=== PATIENT | male | born 1950 | race Two or more races ===

== ENCOUNTER 2016-07-14 10:33 | Inpatient (IN) | payer MEDICAID ==
--- NOTE | 2016-07-14 10:54 | EDPHY ---
H & P Stated Complaint: Diarrhea x 4 days, dialysis last week, SOB Time Seen by Provider: 07/14/16 10:42 HPI/ROS: CHIEF COMPLAINT: Weakness, requesting dialysis, diarrhea HISTORY OF PRESENT ILLNESS: The patient presents to the ED with complaints of generalized weakness. The patient has a history of end-stage renal disease and is only able to receive dialysis at our hospital secondary to his current insurance status. The patient reports he was last dialyzed 7 days ago. The patient denies shortness of breath. He does report several days of loose stool. He denies fever. The patient reports he has been compliant with his regular outpatient medications. The patient denies any complaints of abdominal pain. He has no complaints of chest pain. REVIEW OF SYSTEMS: A comprehensive 10 point review of systems is otherwise negative aside from elements mentioned in the history of present illness. 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 Exam Limitations: No limitations - Personal History Current Tetanus/Diphtheria Vaccine: Yes Tetanus Vaccine Date: 2010 - Medical/Surgical History Hx Asthma: No Hx Chronic Respiratory Disease: No Hx Diabetes: No Hx Cardiac Disease: Yes Hx Renal Disease: Yes Hx Cirrhosis: No Hx Alcoholism: No Hx HIV/AIDS: No Hx Splenectomy or Spleen Trauma: No Other PMH: gout, htn, hernia, anemia, cad, esophagitis, ulcer, renal failure, prn dialysis, heart stent - Social History Smoking Status: Former smoker - Physical Exam Exam: General Appearance: Thin male, no acute distress Eyes: Pupils equal and round no pallor or injection ENT, Mouth: Mucous membranes moist Respiratory: Port noted right anterior chest wall Cardiovascular: Regular rate and rhythm Gastrointestinal: Abdomen is soft and nontender, no masses, bowel sounds normal Neurological: A&O, normal motor function, normal sensory exam, normal cranial nerves Skin: Warm and dry, no rashes Musculoskeletal: Neck is supple nontender Extremities: symmetrical, full range of motion Constitutional: Initial Vital Signs Temperature (C) 36.4 C 07/14/16 10:35 Heart Rate 66 07/14/16 10:35 Respiratory Rate 18 07/14/16 10:35 Blood Pressure 163/60 H 07/14/16 10:35 O2 Sat (%) 99 07/14/16 10:35 O2 Delivery Mode Room Air Allergies/Adverse Reactions: No Known Allergies Allergy (Verified 07/02/16 12:05) Home Medications: Medication Instructions Recorded Ergocalciferol [Vitamin D2 (*)] 50,000 unit PO TU 11/10/15 Nitroglycerin [Nitrostat 0.4 mg 0.4 mg SL PRN PRN #30 btl 11/16/15 (*)] Calcitriol [Calcitriol (*)] 0.25 mcg PO DAILY #30 cap 12/20/15 Multivitamins [Multivitamin (*)] 1 each PO DAILY 01/30/16 Pantoprazole Sodium [Protonix 40mg 40 mg PO BID 03/28/16 (*)] amLODIPine BESYLATE [Norvasc 10 mg 10 mg PO DAILY 03/28/16 (*)] Calcium Carbonate [Tums 500MG (*)] 1,000 mg PO TIDMEAL #0 tab.chew 03/30/16 Metoprolol Tartrate [Lopressor 100 100 mg PO BID 06/05/16 mg (*)] hydrALAZINE [Apresoline 50 mg (*)] 50 mg PO BID 06/19/16 Atorvastatin Calcium [Lipitor 40 80 mg PO DAILY 07/02/16 mg (*)] hydrALAZINE [Apresoline 50 mg (*)] 25 mg PO DAILY@12 07/02/16 Medical Decision Making - Diagnostics EKG Interpretation: EKG: Complete interpretation has been separately recorded in the [email or web address] archive. Summary impression: Sinus rhythm, rate 56, QRS widening is noted, nonspecific ST T wave changes present ED Course/Re-evaluation: The patient presents to the ED with generalized weakness after having 7 days without dialysis. The patient is noted to be stable from a respiratory standpoint upon arrival. His initial potassium was 7.4. The patient was treated with IV calcium, bicarb, dextrose and insulin. The patient also received 30 g of Kayexalate. Consultation was made with nephrology and they are making arrangements to have the patient dialyzed soon as possible. The patient was placed on a environmental monitoring technician in the ED. He did not developed arrhythmia. The patient will be admitted to a medical-surgical floor with monitoring as he awaits dialysis. Consultation was made with the hospitalist service for admission. The patient will be admitted by Dr. Acosta. Differential Diagnosis: Differential diagnosis considered includes hyperkalemia, uremia, dehydration, congestive heart failure, acidosis Critical Care Time: Critical care time exclusive of procedures and exclusive of the PA's time was 35 minutes, performed by myself, Rush Calderón MD. Patient presents to the ED with critical hyperkalemia. The patient had this condition treated in the emergency department. Emergent consultation was made with the hospitalist service as well as Nephrology. - Data Points Laboratory Results: Laboratory Results 07/14/16 10:55 07/14/16 10:55 07/14/16 10:55 WBC 5.59 10^3/uL (3.80-9.50) RBC 2.67 L 10^6/uL (4.40-6.38) Hgb 8.1 L g/dL (13.7-17.5) Hct 24.4 L % (40.0-51.0) MCV 91.4 fL (81.5-99.8) MCH 30.3 pg (27.9-34.1) MCHC 33.2 g/dL (32.4-36.7) RDW 16.6 H % (11.5-15.2) Plt Count 136 L 10^3/uL (150-400) MPV 10.8 fL (8.7-11.7) Neut % (Auto) 55.7 % (39.3-74.2) Lymph % (Auto) 24.5 % (15.0-45.0) Andrews % (Auto) 7.9 % (4.5-13.0) Eos % (Auto) 10.0 H % (0.6-7.6) Baso % (Auto) 0.5 % (0.3-1.7) Nucleat RBC Rel Count 0.0 % (0.0-0.2) Absolute Neuts (auto) 3.11 10^3/uL (1.70-6.50) Absolute Lymphs (auto) 1.37 10^3/uL (1.00-3.00) Absolute Monos (auto) 0.44 10^3/uL (0.30-0.80) Absolute Eos (auto) 0.56 H 10^3/uL (0.03-0.40) Absolute Basos (auto) 0.03 10^3/uL (0.02-0.10) Absolute Nucleated RBC 0.00 10^3/uL (0-0.01) Immature Gran % 1.4 H % (0.0-1.1) Immature Gran # 0.08 10^3/uL (0.00-0.10) Sodium 143 mEq/L (134-144) Potassium 7.4 H* mEq/L (3.5-5.2) Chloride 104 mEq/L (97-110) Carbon Dioxide 8 L* mEq/l (22-31) Anion Gap 31 mEq/L (8-16) BUN > 200 H* mg/dL (7-23) Creatinine 19.0 H* mg/dL (0.7-1.3) Estimated GFR 3 Glucose 100 mg/dL (70-100) Calcium 7.8 L mg/dL (8.5-10.4) Medications Given: Discontinued Medications Dextrose (Dextrose 50% Syringe) 25 gm IVP EDNOW ONE Stop: 07/14/16 11:57 Last Admin: 07/14/16 12:05 Dose: 25 gm Insulin Human Regular (Humulin R) 4 unit IVP EDNOW ONE Stop: 07/14/16 11:59 Last Admin: 07/14/16 12:05 Dose: 4 units Sodium Bicarbonate (Sodium Bicarbonate) 50 meq IVP EDNOW ONE Stop: 07/14/16 11:57 Last Admin: 07/14/16 12:15 Dose: 50 meq Sodium Polystyrene Sulfonate (Kayexalate) 30 gm PO EDNOW ONE Stop: 07/14/16 12:17 Last Admin: 07/14/16 12:40 Dose: 30 gm Departure - Departure Disposition: [facility] Inpatient Acute Clinical Impression: Hyperkalemia, Acute renal failure, Diarrhea Condition: Fair
[2016-07-14 11:00] LABS: % IMMATURE GRANULYOCYTES 1.4 % (0.0-1.1); ABSOLUTE IMMATURE GRANULOCYTES 0.08 10^3/uL (0.00-0.10); ADD DIFF? NO; ADD MORPH? NO; ADD SCAN? NO; ATYPICAL LYMPHOCYTE FLAG 0 (0-99); FRAGMENT RBC FLAG 0 (0-99); HEMATOCRIT 24.4 % (40.0-51.0); HEMOGLOBIN 8.1 g/dL (13.7-17.5); LEFT SHIFT FLG 0 (0-99); LIPEMIA HEMOLYSIS FLAG 80 (0-99); MEAN CELL HEMOGLOBIN 30.3 pg (27.9-34.1); MEAN CELL HEMOGLOBIN CONCENTR. 33.2 g/dL (32.4-36.7); MEAN CELL VOLUME 91.4 fL (81.5-99.8); MEAN PLATELET VOLUME 10.8 fL (8.7-11.7); PLATELET CLUMPS FLAG 0 (0-99); PLATELET COUNT 136 10^3/uL (150-400); RED BLOOD CELL COUNT 2.67 10^6/uL (4.40-6.38); RED CELL DISTRIBUTION WIDTH 16.6 % (11.5-15.2)
--- NOTE | 2016-07-14 11:16 | DX ---
Portable Chest, Single View July 14, 2016 Indication: Dyspnea. Evaluate for CHF. Comparison: Portable chest dated June 19, 2016 Findings: The tunneled dialysis catheter remains in good position. The pulmonary vascular is within n ormal limit. No pulmonary edema, effusion or evidence of fluid overload. Heart size upper normal for AP technique. Previous bibasilar consolidation has nearly completely resolved except for minimal left basilar atelectasis. Impression: 1. No fluid overload or failure. 2. Clear lungs except for minimal residual left basilar atelectasis.
[2016-07-14 11:23] LABS: ANION GAP 31 mEq/L (8-16); CALCIUM 7.8 mg/dL (8.5-10.4); CARBON DIOXIDE 8 mEq/l (22-31); CHLORIDE 104 mEq/L (97-110); GLUCOSE 100 mg/dL (70-100); SODIUM 143 mEq/L (134-144)
[2016-07-14 11:52] LABS: GLOMERULAR FILTRATION RATE 3
[2016-07-14 11:55] LABS: POTASSIUM 7.4 mEq/L (3.5-5.2)
[2016-07-14] MEDS ORDERED: SODIUM BICARBONATE 50 MEQ/50 ML SYR IVP ONE (11:56)
[2016-07-14] MEDS ORDERED: D50W 25 GM/50 ML SYR IVP ONE (11:56)
[2016-07-14] MEDS ORDERED: CALCIUM GLUCONATE 50 ML IV ONE (11:56)
[2016-07-14] MEDS ORDERED: INSULIN REGULAR HUMAN 100 UNIT/ML IVP ONE (11:58)
[2016-07-14] MEDS ORDERED: NA BICARBONATE 50 MEQ/50 ML VIAL ONE (12:07)
--- NOTE | 2016-07-14 12:09 | CPEKG ---
Heart Rate: 56 RR Interval: 1071 P-R Interval: 220 QRSD Interval: 140 QT Interval: 496 QTC Interval: 479 P Brea: 60 QRS Brea: 81 T Wave Brea: 47 EKG Severity - ABNORMAL ECG - EKG Impression: SINUS RHYTHM EKG Impression: FIRST DEGREE AV BLOCK EKG Impression: NONSPECIFIC INTRAVENTRICULAR CONDUCTION DELAY Electronically Signed By: Rush Calderón 14-Jul-2016 15:52:15
[2016-07-14] MEDS ORDERED: CALCIUM GLUC 10% 1 GM/10 ML VIAL ONE (12:12)
[2016-07-14] MEDS ORDERED: NS 50 ML BAG IV ONE (12:13)
[2016-07-14] MEDS ORDERED: SODIUM POLY SULF 15 GM/60 ML BOTTLE PO ONE (12:16)
[2016-07-14] MEDS ORDERED: ACETAMINOPHEN 325 MG TAB PO PRN (12:35)
[2016-07-14] MEDS ORDERED: ONDANSETRON 4 MG/2 ML VIAL IVP PRN (12:35)
[2016-07-14] MEDS ORDERED: ONDANSETRON DISINTEGRATING 4 MG TAB PO PRN (12:35)
--- NOTE | 2016-07-14 12:49 | PDGENHP ---
History and Physical - Chief Complaint feels poorly, needs dialysis - History of Present Illness 66 yo male with h/o ESRD and CAD, who is well known to our service for frequent hospitalization for emergent dialysis. He has no access to outpatient dialysis services. He reports feeling poorly today, with weakness and nausea. He had some chest pressure yesterday and SOB with activity, both of which are resolved at this time. He presented to ED in need of dialysis services History Information - Allergies/Home Medication List Allergies/Adverse Reactions: No Known Allergies Allergy (Verified 07/02/16 12:05) Home Medications: Ergocalciferol [Vitamin D2 (*)] 50,000 unit PO TU 11/10/15 [Last Taken 07/10/16] Multivitamins [Multivitamin (*)] 1 each PO DAILY 01/30/16 [Last Taken 07/13/16] Pantoprazole Sodium [Protonix 40mg (*)] 40 mg PO BID 03/28/16 [Last Taken ] amLODIPine BESYLATE [Norvasc 10 mg (*)] 10 mg PO DAILY 03/28/16 [Last Taken 12/22] Metoprolol Tartrate [Lopressor 100 mg (*)] 100 mg PO DAILY 06/05/16 [Last Taken 07/13/16] hydrALAZINE [Apresoline 50 mg (*)] 50 mg PO BID 06/19/16 [Last Taken 07/13/16] Atorvastatin Calcium [Lipitor 40 mg (*)] 80 mg PO DAILY 07/02/16 [Last Taken 12/22] hydrALAZINE [Apresoline 50 mg (*)] 25 mg PO DAILY@12 07/02/16 [Last Taken ] I have personally reviewed and updated: family history, medical history, social history, surgical history - Past Medical History coronary artery disease (Known coronary disease but has not undergone interventional cardiac catheterization), ESRD (Does not have access to outpatient hemodialysis), GI bleed, GERD (Anemia of chronic disease, H/O UGIB x2 (first on Plavix +ASA, then on ASA alone), esophagitis), hypertension Additional medical history: Anemia of chronic kidney disease; upper GI bleed in the setting of anti-platelet medications, has occurred while on single and double agent therapy; 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; esophagitis - Surgical History Additional surgical history: R IJ tunneled catheter - Family History Additional family history: Mother with CVA and HTN - Social History Smoking Status: Former smoker Additional social history: Currently living alone while his son is in [place] , has been alone for approximately 2 months and is unclear when his son is going to return Review of Systems ROS: 10pt was reviewed & negative except for what was stated in HPI & below Physical Exam Temp Pulse Resp BP Pulse Ox 36.4 C 60 18 152/65 H 98 07/14/16 10:35 07/14/16 11:42 07/14/16 11:42 07/14/16 11:42 07/14/16 11:42 Constitutional: chronically ill appearing Eyes: PERRL Ears, Nose, Mouth, Throat: moist mucous membranes Cardiovascular: regular rate and rhythym Respiratory: no respiratory distress, clear to auscultation Gastrointestinal: normoactive bowel sounds, soft, non-tender abdomen Skin: warm Neurologic: AAOx3 Psychiatric: interacting appropriately Lab Data & Imaging Review 07/14/16 10:55 07/14/16 13:50 WBC 5.59 10^3/uL (3.80-9.50) 07/14/16 10:55 RBC 2.67 10^6/uL (4.40-6.38) L 07/14/16 10:55 Hgb 8.1 g/dL (13.7-17.5) L 07/14/16 10:55 Hct 24.4 % (40.0-51.0) L 07/14/16 10:55 MCV 91.4 fL (81.5-99.8) 07/14/16 10:55 MCH 30.3 pg (27.9-34.1) 07/14/16 10:55 MCHC 33.2 g/dL (32.4-36.7) 07/14/16 10:55 RDW 16.6 % (11.5-15.2) H 07/14/16 10:55 Plt Count 136 10^3/uL (150-400) L 07/14/16 10:55 MPV 10.8 fL (8.7-11.7) 07/14/16 10:55 Neut % (Auto) 55.7 % (39.3-74.2) 07/14/16 10:55 Lymph % (Auto) 24.5 % (15.0-45.0) 07/14/16 10:55 [place] % (Auto) 7.9 % (4.5-13.0) 07/14/16 10:55 Eos % (Auto) 10.0 % (0.6-7.6) H 07/14/16 10:55 Baso % (Auto) 0.5 % (0.3-1.7) 07/14/16 10:55 Nucleat RBC Rel Count 0.0 % (0.0-0.2) 07/14/16 10:55 Absolute Neuts (auto) 3.11 10^3/uL (1.70-6.50) 07/14/16 10:55 Absolute Lymphs (auto) 1.37 10^3/uL (1.00-3.00) 07/14/16 10:55 Absolute Monos (auto) 0.44 10^3/uL (0.30-0.80) 07/14/16 10:55 Absolute Eos (auto) 0.56 10^3/uL (0.03-0.40) H 07/14/16 10:55 Absolute Basos (auto) 0.03 10^3/uL (0.02-0.10) 07/14/16 10:55 Absolute Nucleated RBC 0.00 10^3/uL (0-0.01) 07/14/16 10:55 Immature Gran % 1.4 % (0.0-1.1) H 07/14/16 10:55 Immature Gran # 0.08 10^3/uL (0.00-0.10) 07/14/16 10:55 Sodium 143 mEq/L (134-144) 07/14/16 10:55 Potassium 7.4 mEq/L (3.5-5.2) H* 07/14/16 10:55 Chloride 104 mEq/L (97-110) 07/14/16 10:55 Carbon Dioxide 8 mEq/l (22-31) L* 07/14/16 10:55 Anion Gap 31 mEq/L (8-16) 07/14/16 10:55 BUN > 200 mg/dL (7-23) H* 07/14/16 10:55 Creatinine 19.0 mg/dL (0.7-1.3) H* 07/14/16 10:55 Estimated GFR 3 07/14/16 10:55 Glucose 100 mg/dL (70-100) 07/14/16 10:55 Calcium 7.8 mg/dL (8.5-10.4) L 07/14/16 10:55 Assessment & Plan Assessment: ESRD Life threatening hyperkalemia CAD - severe, CP free. Abnormal EKG Chronic anemia secondary to kidney disease H/O GI bleed - bled on dual anti-platelet therapy in 02/2016, then bled again on ASA alone in 03/2016 Plan: Pt received NaHCO3, Insulin/Dextrose, Calcium Gluconate, Kayexalate in ED. Will repeat stat BMP and EKG now. Check troponin given anterior ST changes on EKG, Cardiology consult if persists despite lowering K. Repeat BMP / Potassium level now. Emergent dialysis per renal. Hgb at baseline, defer transfusion at this time Regarding CAD and prior UGIB, pt has severe CAD, which has not been intervened upon. He has been on BID PPI with no further bleeding for ~4 months. He warrants another trial of anti-platelet therapy and after discussion with Cardiology, will resume Plavix alone (bled both times on ASA, which may be more likely to aggravate GI tract). Full code
[2016-07-14 13:09] LABS: MAGNESIUM 2.1 mg/dL (1.6-2.3)
[2016-07-14 13:22] LABS: TROPONIN I < 0.012 ng/mL (0-0.034)
[2016-07-14] MEDS ORDERED: NITROGLYCERIN 0.4 MG BTL SL PRN (13:25)
--- NOTE | 2016-07-14 13:29 | SOAPPROG ---
SOAP Progress Note Assessment/Plan: Assessment: 1)ESRD- no access to outpt unit given citizenship status -emergent HD today (and again tomorrrow) given hyperkalemia and severe azotemia -high risk for dialysis dysequilibrium- will use low blood flow, shorter run, mannitol to help minimize risk (BUN >200)- discussed with hospitalist signs/ symptoms to monitor for (N/v, TYSON, seizure) 2)Hyperkalemia -medical managment in ER, now for emergent dialysis- would recheck K 2 hours after HD tonight (call me if > 6 still) -renal diet 3)Anemia of CKD -will give Epo 10,000 units at Hb < 9 4)MBD of CKD -phos 9- start binder Ca Acetate 1334 mg po tid meals -renal diet -hold calcitriol until phos better I discussed with manager behavior and hospitalist Elba Burch MD [facility] [phone] 07/14/16 15:28 Subjective: Pt seen on dialysis at 15:12. He is using RIJ TDC with Qb 250, 2K/2.5Ca bath. Tolerating well so far. Gave mannitol at start of run given severe azotemia. Denies any n/v, TYSON currently. Objective: Vital Signs Temp Pulse Resp BP Pulse Ox 36.4 C 54 L 14 156/72 H 99 07/14/16 13:21 07/14/16 13:21 07/14/16 13:21 07/14/16 13:21 07/14/16 13:21 07/13/16 07/14/16 07/15/16 05:59 05:59 05:59 Intake Total 150 Balance 150 Physical Exam - Physical Exam General Appearance: no apparent distress Neck: supple, other (RIJ TDC c/d/i) Respiratory: lungs clear Cardiac/Chest: regular rate, rhythm, other (no rub) Abdomen: non-tender, soft Skin: warm/dry Extremities: other (trace LE edema bilat) Neuro/Psych: alert, oriented x 3 ICD10 Worksheet Patient Problems: Problems Problem Status Diagnosed Acute renal failure Acute Diarrhea Acute Hyperkalemia Acute Abdominal pain Acute Acute upper GI bleed Acute Anemia Acute Anemia associated with acute blood loss Acute End stage renal disease Acute Hypertension Acute Hypocalcemia Acute Metabolic acidosis Acute Renal failure Acute
[2016-07-14] MEDS ORDERED: CALCITRIOL 0.25 MCG CAP PO SCH (13:30)
[2016-07-14] MEDS ORDERED: MANNITOL 25% 12.5 GM/50 ML VIAL IVP ONE (13:31)
--- NOTE | 2016-07-14 13:46 | CPEKG ---
Heart Rate: 54 RR Interval: 1111 P-R Interval: 200 QRSD Interval: 122 QT Interval: 488 QTC Interval: 463 P Docena: 71 QRS Docena: 72 T Wave Docena: 64 EKG Severity - ABNORMAL ECG - EKG Impression: SINUS RHYTHM Electronically Signed By: Carter Wolfe 15-Jul-2016 10:48:44
[2016-07-14 14:24] LABS: ANION GAP 30 mEq/L (8-16); CARBON DIOXIDE 10 mEq/l (22-31); CHLORIDE 104 mEq/L (97-110); GLUCOSE 121 mg/dL (70-100); SODIUM 144 mEq/L (134-144)
[2016-07-14 14:41] LABS: CREATININE 19.1 mg/dL (0.7-1.3); GLOMERULAR FILTRATION RATE 2
[2016-07-14 14:44] LABS: POTASSIUM 8.1 mEq/L (3.5-5.2)
[2016-07-14] MEDS ORDERED: ALBUMIN 25% 50 ML IV SCH (15:00)
[2016-07-14] MEDS ORDERED: ALBUMIN 25% 50 ML IV PRN (15:56)
[2016-07-14] MEDS: ATORVASTATIN CALCIUM 40 MG TAB PO SCH (16:35)
[2016-07-14] MEDS: PANTOPRAZOLE SODIUM 40 MG TAB PO SCH ×2 (16:35→21:25)
[2016-07-14] MEDS: METOPROLOL TARTRATE 100 MG TAB PO SCH ×2 (16:35→21:25)
[2016-07-14] MEDS: CALCIUM ACETATE 667 MG CAP PO SCH (19:21)
[2016-07-14] MEDS: CALCIUM CARBONATE 500 MG CHEWABLE TAB PO SCH (19:21)
[2016-07-14 20:28] LABS: ANION GAP 22 mEq/L (8-16); CALCIUM 8.6 mg/dL (8.5-10.4); CARBON DIOXIDE 20 mEq/l (22-31); CHLORIDE 100 mEq/L (97-110); GLOMERULAR FILTRATION RATE 6; GLUCOSE 76 mg/dL (70-100); POTASSIUM 3.7 mEq/L (3.5-5.2); SODIUM 142 mEq/L (134-144)
[2016-07-14 20:42] LABS: CREATININE 8.6 mg/dL (0.7-1.3)
[2016-07-14] MEDS ORDERED: HEPARIN 50,000 UNIT/10 ML VIAL ONE (21:00)
[2016-07-15 05:30] LABS: ANION GAP 17 mEq/L (8-16); CALCIUM 8.2 mg/dL (8.5-10.4); CARBON DIOXIDE 22 mEq/l (22-31); CHLORIDE 101 mEq/L (97-110); GLOMERULAR FILTRATION RATE 5; GLUCOSE 82 mg/dL (70-100); POTASSIUM 4.4 mEq/L (3.5-5.2); SODIUM 140 mEq/L (134-144)
[2016-07-15 05:35] LABS: CREATININE 10.3 mg/dL (0.7-1.3)
[2016-07-15] MEDS: CALCIUM CARBONATE 500 MG CHEWABLE TAB PO SCH ×3 (08:03→18:53)
[2016-07-15] MEDS: ATORVASTATIN CALCIUM 40 MG TAB PO SCH (08:03)
[2016-07-15] MEDS: METOPROLOL TARTRATE 100 MG TAB PO SCH (08:04)
[2016-07-15] MEDS: CALCIUM ACETATE 667 MG CAP PO SCH ×3 (08:04→18:53)
[2016-07-15] MEDS: PANTOPRAZOLE SODIUM 40 MG TAB PO SCH ×2 (08:04→19:50)
[2016-07-15] MEDS ORDERED: CLOPIDOGREL BISULFATE 75 MG TAB PO SCH (09:00)
[2016-07-15] MEDS ORDERED: EPOETIN ALFA 10,000 UNIT/ML VIAL SC ONE (09:00)
--- NOTE | 2016-07-15 10:10 | SOAPPROG ---
JACQUELINE Progress Note Assessment/Plan: Assessment: 1)ESRD- no access to outpt unit given citizenship status -emergent HD today (and again tomorrrow) given hyperkalemia and severe azotemia -high risk for dialysis dysequilibrium- will use low blood flow, shorter run, mannitol to help minimize risk (BUN >200)- appears to have tolerated first run ok -Plan HD again today (he may choose to d/c afterwards which is ok, otherwise we can run again Saturday if still here) 2)Hyperkalemia -improved with HD -renal diet 3)Anemia of CKD -will give Epo 10,000 units at Hb < 9 4)MBD of CKD -phos 9- started binder Ca Acetate 1334 mg po tid meals -renal diet -hold calcitriol until phos better 5)HTN- improved control since admit, query whether taking meds at home I discussed with hospitalist Elba Burch MD [facility] [phone] 07/15/16 11:40 07/15/16 11:42 Subjective: Tolerated HD well yesterday- no n/v, TYSON, dizziness. Feels much better today. No sob. Discussed discharge- he tells me he probably will want to leave after HD today but will see how he is feeling. Objective: Vital Signs Temp Pulse Resp BP Pulse Ox 36.7 C 61 13 159/87 H 96 07/15/16 07:49 07/15/16 08:04 07/15/16 07:49 07/15/16 08:04 07/15/16 07:49 Laboratory Results 07/15/16 04:23 07/14/16 07/15/16 07/16/16 05:59 05:59 05:59 Intake Total 325 Output Total 1999 Balance -1675 Physical Exam - Physical Exam General Appearance: alert, no apparent distress EENT: other (MMM) Neck: supple, other (RIJ TDC c/d/i) Respiratory: lungs clear Cardiac/Chest: regular rate, rhythm, other (no rub) Abdomen: normal bowel sounds, non-tender, soft Extremities: other (no edema) Neuro/Psych: alert, oriented x 3 ICD10 Worksheet Patient Problems: Problems Problem Status Diagnosed Acute renal failure Acute Diarrhea Acute Hyperkalemia Acute Abdominal pain Acute Acute upper GI bleed Acute Anemia Acute Anemia associated with acute blood loss Acute End stage renal disease Acute Hypertension Acute Hypocalcemia Acute Metabolic acidosis Acute Renal failure Acute
--- NOTE | 2016-07-15 15:22 | GDS ---
[f rep st] DISCHARGE SUMMARY DISCHARGE DIAGNOSES: 1. Endstage renal disease. 2. Hyperkalemia. 3. Coronary artery disease. 4. Anemia of chronic kidney disease. 5. History of gastrointestinal bleed. CONSULTANTS: Nephrology, Dr. Elba Burch. HISTORY: For details, please see the history and physical by myself dated July 14, 2016. In brief , Mr. Walton is a 66-year-old male with a history of endstage renal disease and severe coron callie artery disease, who returned to the hospital for emergency dialysis services. He unfortunately d oes not qualify for outpatient dialysis access and thus, frequently presents to the emergency departm ent for admission for emergent dialysis. Upon arrival this time, he was found to have a potassium of 7.4 and was admitted for further management. HOSPITAL COURSE: In the emergency department, the patient received sodium bicarb, with insulin/dextr ose, calcium gluconate, and Kayexalate. He underwent emergent dialysis and although his repeat potas sium jasper to 8.1, after dialysis his potassium decreased to 3.7 and on the day of discharge, his pot assium is 4.4. His EKG on arrival was abnormal with some ST elevations in V1 and V2. However, the p atient was chest pain-free and had a negative troponin x2. Repeat EKG showed complete resolution of these ST elevations. Therefore, I suspect this was secondary to hyperkalemia. His repeat EKG is ove rall nonischemic and again, the patient has remained chest pain-free throughout the hospitalization. With respect to his anemia of chronic kidney disease, he received a 10,000 units of epoetin per the renal service. He was continued on his usual blood pressure medications. His blood pressure on dis charge is in the 140s over 60s. With respect to his coronary artery disease, he underwent an angiogr am by Dr. Flaherty in November of 2015. At that time, he was found to have 85% occlusion of the mid RCA and 99% occlusion of the RCA between the PDA takeoff and the PLV branch of the right coronary. These le sions were not intervened upon due to concern for need for increased contrast load. It was recommend ed he be treated with aspirin and Plavix, which were started in November. However, he returned in February with a GI bleed and both antiplatelet agents were held. He was ultimately resumed on once daily aspi rin but again, returned in March with recurrent GI bleeding. He has since been treated with b.i. d. PPI. He has had no further evidence of GI bleeding. It has been 4 months now since his last GI b leed. I discussed his case with Cardiology. We both agreed that resuming solo antiplatelet therapy may provide more benefit than risk at this point given the severity of his coronary disease. I have opted to start him back on Plavix as aspirin is more likely to irritate the GI tract, and he did blee d both times while on aspirin. Should he bleed again on Plavix, this would need to be stopped. DISPOSITION: Patient is discharged home in stable condition. DISCHARGE MEDICATIONS: Please see [id number] for complete updated outpatient medication list. New med ications at discharge include Plavix 75 mg p.o. daily, #30, no refills. Changed medications on disch arge: His Lopressor 100 mg p.o. once daily medication is discontinued in favor of Toprol-XL 100 mg p .o. daily, #30, no refills. He will continue all other medications as prescribed. DIET: Patient should remain on a renal diet. FOLLOWUP: He is to follow up with [facility], as well as [facility]. However, sin ce he is unable to achieve outpatient dialysis access unfortunately, his plan is to return to the [facility] department for recurrent dialysis needs. /[id number]
[2016-07-15] MEDS ORDERED: HEPARIN 10,000 UNIT/10 ML MDV ONE (18:23)
[2016-07-15 19:35] VITALS: BP 163/74; PULSE 61; RESP 12; TEMP 97.9; O2SAT 99
[2016-07-18 09:30] LABS: HEPATITIS Bs Ab QUANT <5.0 mIU/mL (())
== END 2016-07-15 20:43 | disposition home or self-care (01) | DRG 640 ==
LOC: F3E 13:12 → F2W 14:45
PROVIDERS: ADMIT Hospitalist; ATTEND Hospitalist
PROC: 5A1D00Z (ICD-10-PCS; principal; 2016-07-14)
DX: E87.5 Hyperkalemia (principal); N18.6 End stage renal disease; I12.0 Hypertensive chronic kidney disease with stage 5 chronic kidney disease or end stage renal disease; D63.1 Anemia in chronic kidney disease; I25.10 Atherosclerotic heart disease of native coronary artery without angina pectoris; Z99.2 Dependence on renal dialysis
CPT/HCPCS: 96374; 97162-GP; G8978-GP-CI; G8979-GP-CH; G8980-GP-CH; J0610; J0885; J1644; J1815; J2150

== ENCOUNTER 2016-07-26 10:58 | Inpatient (IN) | payer MEDICAID ==
--- NOTE | 2016-07-26 12:08 | EDPHY ---
H & P Stated Complaint: Thinks he needs dialysis. Last dialysis 2 weeks ago. Pain to bilat flank. 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 Exam Limitations: No limitations - Personal History Current Tetanus Diphtheria and Acellular Pertussis (TDAP): Yes Tetanus Vaccine Date: 2010 - Medical/Surgical History Hx Asthma: No Hx Chronic Respiratory Disease: No Hx Diabetes: No Hx Cardiac Disease: Yes Hx Renal Disease: Yes Hx Cirrhosis: No Hx Alcoholism: No Hx HIV/AIDS: No Hx Splenectomy or Spleen Trauma: No Other PMH: gout, htn, hernia, anemia, cad, esophagitis, ulcer, renal failure, prn dialysis, heart stent - Social History Smoking Status: Former smoker HPI/ROS: CHIEF COMPLAINT: Shortness of breath, in need of dialysis HISTORY OF PRESENT ILLNESS: patient complains of "I think I need dialysis." he notes increasing swelling of lower extremities, shortness of breath and some abdominal discomfort. This is consistent with his previous episodes of fluid retention. He last dialyzed on the 14 of July. He does not have outpatient follow-up for care. He has no chest pain. Some shortness of breath and orthopnea. No fever or chills. Minimal cough. No abdominal pain at this time. Does have history of peptic ulcer that is at baseline. No bleeding from any site. Has a right tunneled dialysis catheter for access. No other associated complaints or modifying factors. REVIEW OF SYSTEMS: Ten systems reviewed and are negative unless otherwise noted in the HPI EXAMINATION General Appearance: Alert, no distress Head: normocephalic, atraumatic Eyes: Pupils equal and round, no conjunctival pallor or injection ENT, Mouth: Mucous membranes moist Neck: Normal inspection, supple, non-tender Respiratory: Right-sided tunneled hemodialysis catheter.crackles at the bases. No consolidation. Mild rhonchi. No respiratory distress. Cardiovascular: Regular rate and rhythm Gastrointestinal: Abdomen is soft With mild distention. No rigidity. Nonacute abdomen. No CVA tenderness. Neurological: A&O, nonfocal, normal gait Skin: Warm and dry, no rash Extremities: Nontender, 2+ symmetric pedal edema. Range of motion fully intact. Psychiatric: Mood and affect normal DIFFERENTIAL DIAGNOSES: Including but not limited to End-stage renal disease dependent on dialysis, fluid overload, pleural effusion, peripheral edema, hyperkalemia, hypertension MDM: 12:07 p.m. end-stage renal disease on dialysis. The patient does not have a regularly scheduled dialysis, nor does he have a blunger. Last dialyzed on the 14 of July. This was here at this facility and he was admitted for this. He has no chest pain. Does have some shortness of breath. We are obtaining emergent laboratory studies to determine his potassium level. Plan for admission for dialysis. 12:20 p.m. i-STAT laboratory reveals a potassium of 7.0. We immediately ordered calcium gluconate IV piggyback and albuterol nebulizer treatment. His vital signs are stable. Hemoglobin is noted to be 6.8 on the i-STAT, thus we have ordered a type and screen. We will monitor him closely and consider further hyperkalemia drugs pending EKG. 12:37 p.m. I spoke with the hospitalist for admission. Patient will be admitted to Dr. Amato inpatient status, we have also paged Nephrology to arrange for emergent hemodialysis. 12:50 p.m. I spoke with Dr. Wolfe regarding emergent hemodialysis. She will arrange for hemodialysis and patient. Also spoke with Dr. Amato, and she has added additional medications. He has been admitted to her service for inpatient care for emergent dialysis EKG: Interpreted by Dr. Schwarz. rate is 61 beats per minute, sinus rhythm. There are peaked T-waves laterally consistent with previous EKG. No acute ischemia. T-waves inverted only in aVL. P are 196, QTC 444. The interventricular conduction delay consistent with previous. Interpretation: Normal sinus rhythm with conduction delay. SUPERVISION: Patient was evaluated in conjunction with the supervising physician. Please see their note for details. (Nicolas Jay) Constitutional: Initial Vital Signs Temperature (C) 36.9 C 07/26/16 11:10 Heart Rate 69 07/26/16 11:10 Respiratory Rate 16 07/26/16 11:10 Blood Pressure 196/92 H 07/26/16 11:10 O2 Sat (%) 96 07/26/16 11:10 O2 Delivery Mode Room Air Allergies/Adverse Reactions: No Known Allergies Allergy (Verified 07/02/16 12:05) Home Medications: Medication Instructions Recorded Ergocalciferol [Vitamin D2 (*)] 50,000 unit PO TU 11/10/15 Nitroglycerin [Nitrostat 0.4 mg 0.4 mg SL PRN PRN #30 btl 11/16/15 (*)] Calcitriol [Calcitriol (*)] 0.25 mcg PO DAILY #30 cap 12/20/15 Multivitamins [Multivitamin (*)] 1 each PO DAILY 01/30/16 Pantoprazole Sodium [Protonix 40mg 40 mg PO BID 03/28/16 (*)] amLODIPine BESYLATE [Norvasc 10 mg 10 mg PO DAILY 03/28/16 (*)] Calcium Carbonate [Tums 500MG (*)] 1,000 mg PO TIDMEAL #0 tab.chew 03/30/16 Atorvastatin Calcium [Lipitor 40 80 mg PO DAILY 07/02/16 mg (*)] hydrALAZINE [Apresoline 50 mg (*)] 25 mg PO TID 07/02/16 Clopidogrel Bisulfate [Plavix (*)] 75 mg PO DAILY #30 tab 07/15/16 Metoprolol Succinate Xr [Toprol Xl 100 mg PO DAILY #30 tab.sr 07/15/16 100 mg (*)] Herbals/Supplements -Info Only 1 ea PO DAILY 07/26/16 Medical Decision Making ED Course/Re-evaluation: The patient was evaluated and managed by the physician's tv production assistant. My cosignature indicates that I reviewed the chart and I agree with the findings and plan of care as documented. I am the secondary supervising physician. ( Pattie Schwarz) - Data Points Laboratory Results: Laboratory Results 07/26/16 12:15 07/26/16 12:15 07/26/16 07/26/16 12:15 12:13 WBC 4.18 10^3/uL (3.80-9.50) RBC 2.26 L 10^6/uL (4.40-6.38) Hgb 7.1 L g/dL (13.7-17.5) POC Hgb 6.8 L gm/dL (14.5-17.3) Hct 21.6 L % (40.0-51.0) POC Hct 20 L % (42.8-50.6) MCV 95.6 fL (81.5-99.8) MCH 31.4 pg (27.9-34.1) MCHC 32.9 g/dL (32.4-36.7) RDW 18.2 H % (11.5-15.2) Plt Count 107 L 10^3/uL (150-400) MPV 10.4 fL (8.7-11.7) Neut % (Auto) 62.7 % (39.3-74.2) Lymph % (Auto) 17.5 % (15.0-45.0) [place] % (Auto) 8.9 % (4.5-13.0) Eos % (Auto) 8.9 H % (0.6-7.6) Baso % (Auto) 1.0 % (0.3-1.7) Nucleat RBC Rel Count 0.0 % (0.0-0.2) Absolute Neuts (auto) 2.63 10^3/uL (1.70-6.50) Absolute Lymphs (auto) 0.73 L 10^3/uL (1.00-3.00) Absolute Monos (auto) 0.37 10^3/uL (0.30-0.80) Absolute Eos (auto) 0.37 10^3/uL (0.03-0.40) Absolute Basos (auto) 0.04 10^3/uL (0.02-0.10) Absolute Nucleated RBC 0.00 10^3/uL (0-0.01) Immature Gran % 1.0 % (0.0-1.1) Immature Gran # 0.04 10^3/uL (0.00-0.10) PT 15.9 H SEC (12.0-15.0) INR 1.27 H (0.83-1.16) APTT 30.5 SEC (23.0-38.0) POC Sodium 141 mEq/L (134-144) Sodium REJ POC Potassium 7.0 H* mEq/L (3.3-5.0) Potassium REJ POC Chloride 117 H mEq/L (96-108) Chloride REJ Carbon Dioxide REJ Anion Gap REJ POC BUN > 140 H* mg/dL (7-23) BUN REJ Creatinine REJ POC Creatinine > 20.0 H* mg/dL (0.8-1.5) Estimated GFR REJ Glucose REJ POC Glucose 91 mg/dL (70-100) Calcium REJ Phosphorus REJ Total Bilirubin REJ Conjugated Bilirubin REJ Unconjugated Bilirubin REJ AST REJ ALT REJ Alkaline Phosphatase REJ Total Protein REJ Albumin REJ Lipase REJ Medications Given: Discontinued Medications Albuterol (Proventil Neb) 3 ml IH EDNOW ONE Stop: 07/26/16 12:23 Last Admin: 07/26/16 12:40 Dose: 3 ml Fentanyl (Sublimaze) 50 mcg IV Q1 PRN PRN Reason: Pain, Breakthrough Stop: 07/26/16 13:01 Last Admin: 07/26/16 12:45 Dose: 50 mcg Calcium Gluconate (Calcium Gluconate 1 Gm (Premix)) 50 mls @ 100 mls/hr IV EDNOW ONE Stop: 07/26/16 12:50 Last Admin: 07/26/16 12:40 Dose: 50 mls Point of Care Test Results: 07/26/16 12:13 POC Sodium 141 POC Potassium 7.0 H* POC Chloride 117 H POC BUN > 140 H* POC Creatinine > 20.0 H* POC Glucose 91 Departure - Departure Disposition: [facility] ([place], [place]) Inpatient Acute Clinical Impression: End stage renal disease Condition: Good
[2016-07-26] MEDS ORDERED: CALCIUM GLUCONATE 50 ML IV ONE (12:21)
[2016-07-26] MEDS ORDERED: ALBUTEROL 3 ML DEYVIAL IH ONE (12:22)
[2016-07-26] MEDS ORDERED: fentaNYL 100 MCG/2 ML INJ IV PRN (12:24)
--- NOTE | 2016-07-26 12:26 | CPEKG ---
Heart Rate: 61 RR Interval: 984 P-R Interval: 196 QRSD Interval: 112 QT Interval: 444 QTC Interval: 448 P [place]: 60 QRS [place]: 70 T Wave [place]: 57 EKG Severity - ABNORMAL ECG - EKG Impression: SINUS RHYTHM EKG Impression: NONSPECIFIC INTRAVENTRICULAR CONDUCTION DELAY Electronically Signed By: Pattie Schwarz 26-Jul-2016 15:19:13
[2016-07-26 12:27] LABS: ABSOLUTE IMMATURE GRANULOCYTES 0.04 10^3/uL (0.00-0.10); ADD DIFF? NO; ADD MORPH? NO; ADD SCAN? NO; ATYPICAL LYMPHOCYTE FLAG 0 (0-99); FRAGMENT RBC FLAG 0 (0-99); HEMATOCRIT 21.6 % (40.0-51.0); HEMOGLOBIN 7.1 g/dL (13.7-17.5); LEFT SHIFT FLG 0 (0-99); LIPEMIA HEMOLYSIS FLAG 80 (0-99); MEAN CELL HEMOGLOBIN 31.4 pg (27.9-34.1); MEAN CELL HEMOGLOBIN CONCENTR. 32.9 g/dL (32.4-36.7); MEAN CELL VOLUME 95.6 fL (81.5-99.8); MEAN PLATELET VOLUME 10.4 fL (8.7-11.7); PLATELET CLUMPS FLAG 30 (0-99); PLATELET COUNT 107 10^3/uL (150-400); RED BLOOD CELL COUNT 2.26 10^6/uL (4.40-6.38); RED CELL DISTRIBUTION WIDTH 18.2 % (11.5-15.2)
[2016-07-26] MEDS ORDERED: CALCIUM GLUC 10% 1 GM/10 ML VIAL ONE (12:28)
[2016-07-26] MEDS ORDERED: NS 50 ML BAG IV ONE (12:29)
[2016-07-26 12:41] LABS: INR 1.27 (0.83-1.16); PROTIME(PATIENT) 15.9 SEC (12.0-15.0)
[2016-07-26 12:42] LABS: APTT 30.5 SEC (23.0-38.0)
[2016-07-26] MEDS ORDERED: INSULIN REGULAR HUMAN 100 UNIT/ML IVP ONE (12:48)
[2016-07-26] MEDS ORDERED: SODIUM BICARBONATE 50 MEQ/50 ML SYR IVP ONE ×2 (12:49→14:25)
[2016-07-26] MEDS ORDERED: D50W 25 GM/50 ML SYR IVP ONE (12:49)
[2016-07-26] MEDS ORDERED: SODIUM POLY SULF 15 GM/60 ML BOTTLE PO ONE ×2 (12:50→15:00)
[2016-07-26] MEDS ORDERED: ONDANSETRON DISINTEGRATING 4 MG TAB PO PRN (12:51)
[2016-07-26] MEDS ORDERED: ONDANSETRON 4 MG/2 ML VIAL IVP PRN (12:51)
[2016-07-26] MEDS ORDERED: ACETAMINOPHEN 325 MG TAB PO PRN (12:51)
--- NOTE | 2016-07-26 13:41 | DX ---
Chest, One View Portable at 1259 hours History: Shortness of breath. Comparison: July 14, 2016 Findings: Cardiac silhouette is normal in size. Right subclavian double lumen hemodialysis catheter in the right atrium. No pneumothorax. Patchy left lower lobe opacity may represent early pneumonia. N o definite pulmonary edema. Impression: 1. Hemodialysis catheter without pneumothorax. 2. Possible early left lower lobe pneumonia. 3. No definite pulmonary edema.
[2016-07-26] MEDS ORDERED: NA BICARBONATE 50 MEQ/50 ML VIAL ONE (13:46)
[2016-07-26 13:58] LABS: ANION GAP 26 mEq/L (8-16); CALCIUM 9.1 mg/dL (8.5-10.4); CHLORIDE 110 mEq/L (97-110); GLUCOSE 94 mg/dL (70-100); SODIUM 144 mEq/L (134-144)
[2016-07-26 14:05] LABS: GLOMERULAR FILTRATION RATE 2
[2016-07-26 14:06] LABS: CREATININE 19.4 mg/dL (0.7-1.3)
[2016-07-26 14:09] LABS: CARBON DIOXIDE 8 mEq/l (22-31)
[2016-07-26] MEDS ORDERED: NA BICARBONATE 50 MEQ/50 ML VIAL IV ONE (15:00)
[2016-07-26 15:55] LABS: POTASSIUM 6.2 mEq/L (3.5-5.2)
--- NOTE | 2016-07-26 16:17 | GHP ---
[f rep st] HISTORY AND PHYSICAL DATE OF ADMISSION: 07/26/2016 CHIEF COMPLAINT: Flank pain and general malaise. HISTORY OF PRESENT ILLNESS: Mr. Walton is a 66-year-old male, well- known to the hospitalist service for frequent admissions due to need for emergent dialysis as he has no access to outpatient dialysis services. Upon arrival today, he reports some abdominal discomfort which he localizes to the bilateral flank regions. He denies fevers, chills, nausea, or vomiting. He has had increased swelling of his lower extremities. He has had a chronic cough with some mild shortness of breath. He denies chest pain. His last dialysis was during admission here on July 14, 2016. Workup in the emergency department reveals a markedly abnormal metabolic panel with a potassium level of 8, BUN 182, creatinine 19.4. He is admitted to the hospital for emergent dialysis needs. PAST MEDICAL HISTORY: 1. Endstage renal disease. The patient has a right IJ tunneled dialysis catheter present for greater than 1 year. 2. Coronary artery disease. 3. History of GI bleed. 4. GERD. 5. Anemia of chronic disease. 6. Hypertension. 7. Esophagitis. 8. Duodenal stricture. SURGICAL HISTORY: Right IJ tunnel catheter. FAMILY HISTORY: His mom had a stroke and hypertension. SOCIAL HISTORY: The patient is a former smoker. He is currently living independently and though his son is local, he is not present during his hospitalizations. He denies alcohol or drug use. REVIEW OF SYSTEMS: Ten-point review of systems was performed and is negative, except as per HPI. OBJECTIVE: VITAL SIGNS: Temperature 36.3, blood pressure 170/75, heart rate 64 , respiratory rate 14. He is 95% on room air. GENERAL: The patient is awake, alert, oriented, no acute distress. HEENT: Head is atraumatic, normocephalic. Pupils are equally round and reactive to light. Extraocular muscles are intact. Oropharynx is clear. Mucous membranes are dry. NECK: Supple. He has JVD to the mandible. HEART: Regular rate and rhythm. LUNGS: Somewhat coarse breath sounds. Fair air exchange. ABDOMEN: Soft, nondistended. He has some mild tenderness to palpation in the left upper quadrant. No rebound, rigidity, or guarding. CVA tenderness is noted bilaterally. EXTREMITIES: Show 1+ bilateral lower extremity edema. NEUROLOGIC: Grossly nonfocal. LABORATORY DATA: CBC is remarkable for a hemoglobin of 7.1. Platelets are 107. Complete metabolic panel: Potassium 8, BUN 182, creatinine 19.4. INR is 1.27. IMAGING: Chest x-ray shows a patchy left lower lobe opacity. There is no pulmonary edema. Hemodialysis catheter is present. EKG shows normal sinus rhythm. There are no ST-segment or T-wave changes suggestive of acute ischemia. ASSESSMENT AND PLAN: Mr. Walton is a 66-year-old male with a history of endstage renal disease who is hemodialysis-dependent, who presents to the emergency department for emergent dialysis needs. 1. Endstage renal disease: Patient needs emergent dialysis and Dr. Krystal Wolfe from the nephrology service will consult on the patient, and he will likely go for dialysis this afternoon. He has a tunneled dialysis catheter. 2. Life-threatening hyperkalemia: His potassium at this time is 8.0. He has been given 2 amps of sodium bicarb, insulin dextrose, Kayexalate, and calcium gluconate. Recheck is 6.2 He does have some peaked T-waves on his EKG, but is chest pain-free. 3. Bilateral flank pain - This is not his typical presentation. Afebrile and no leukocytosis concerning for infection. Will check a renal u/s to r/o obstructive process or hydro. 3. Anemia of chronic kidney disease: Patient receives epoetin injections during his hospitalizations, but this is not managed in the outpatient setting. His hemoglobin on presentation is 7.1. I think he needs a unit of blood given the severity of his coronary artery disease. I discussed this with Krystal Wolfe from the nephrology service and will arrange this to be done at the time of dialysis. Type and cross now. Continue to monitor his H and H. 4. Coronary artery disease: This is severe. He underwent angiogram by Dr. Flaherty in November of 2015, at which time he was found to have 85% occlusion of the mid RCA and 99% occlusion of the RCA between the PDA takeoff and PLV branch of the right coronary. These lesions were not intervened upon at that time due to concern about need for increased contrast load. He was initially treated with aspirin and Plavix, though he then developed GI bleeding. The Plavix was discontinued, and he returned with GI bleeding on aspirin alone in ~03/2016. At this time, he is chest pain-free. At his last hospital discharge, he was continued on Plavix and has had no further evidence of GI bleeding. Will cont Plavix, statin, BB. 5. History of gastrointestinal bleed as above: He had 2 episodes of GI bleeding, during both of which he was on aspirin. At the time of his last hospital discharge, aspirin continued to be held, but he was given a trial of Plavix alone. This is less likely to cause GI distress. He has been managed on b.i.d. PPI and denies melanotic stools on arrival however, I do note his hemoglobin has trended down a bit from his last hospitalization. Will continue his PPI and Plavix with close monitoring. 6. Deep venous thrombosis prophylaxis: Heparin. 7. Code status: Patient is full code. DISPOSITION: Patient is admitted to inpatient status as he will likely require greater than 48 hours hospitalization for ongoing management of his endstage renal disease and life-threatening hyperkalemia. /[id number]/MODL MTDD
[2016-07-26] MEDS ORDERED: NITROGLYCERIN 0.4 MG BTL SL PRN (16:30)
--- NOTE | 2016-07-26 17:26 | US ---
Renal Sonogram, complete HISTORY: Renal failure, bilateral flank pain COMPARISON: June 22, 2015 Findings: There is a small amount of ascites present. Bilateral renal cortex is echogenic, consistent with medical renal disease. The right kidney measures 8.5 x 4.6 x 4.7 cm (95 mL) and the left kidney 9.4 x 4.8 x 5.4 cm. (127 mL). There is no hydronephrosis or retroperitoneal perinephric fluid. A sma ll cyst associated with the upper pole of the right kidney was present previously and is stable at 1. 1 cm. The urinary bladder looks normal. Prevoid volume = 58 mL. A post void residual could not be obt ained since the patient could not void. There is no evidence for nephrolithiasis or urinary bladder s tone. Impression: 1. No renal obstruction. No source for flank pain identified. 2. Small amount of free fluid in the abdomen of undetermined etiology.
[2016-07-26] MEDS ORDERED: HYDROCODONE/APAP 5/325 TAB PO PRN (17:54)
[2016-07-26] MEDS: ATORVASTATIN CALCIUM 40 MG TAB PO SCH (18:08)
[2016-07-26] MEDS: METOPROLOL SUCCINATE XR 100 MG TAB PO SCH (18:08)
[2016-07-26] MEDS: CALCIUM CARBONATE 500 MG CHEWABLE TAB PO SCH (18:08)
--- NOTE | 2016-07-26 19:43 | PDGENHP ---
History and Physical - Chief Complaint ESRD - History of Present Illness Mr. Walton is a 66 yo M with ESRD and no outpatient dialysis unit who presents to ED for dialysis. Pt reports that he is having abdominal pain and back pain, which is different for him. He was last dialyzed on 07/15/16. He has not had any fevers or chills, does have a little swelling. He feels tired. History Information - Allergies/Home Medication List Allergies/Adverse Reactions: No Known Allergies Allergy (Verified 07/02/16 12:05) Home Medications: Ergocalciferol [Vitamin D2 (*)] 50,000 unit PO TU 11/10/15 [Last Taken 07/25/16] Multivitamins [Multivitamin (*)] 1 each PO DAILY 01/30/16 [Last Taken 07/25/16] Pantoprazole Sodium [Protonix 40mg (*)] 40 mg PO BID 03/28/16 [Last Taken ] amLODIPine BESYLATE [Norvasc 10 mg (*)] 10 mg PO DAILY 03/28/16 [Last Taken ] Atorvastatin Calcium [Lipitor 40 mg (*)] 80 mg PO DAILY 07/02/16 [Last Taken ] hydrALAZINE [Apresoline 50 mg (*)] 25 mg PO TID 07/02/16 [Last Taken 07/25/16] Herbals/Supplements -Info Only 1 ea PO DAILY 07/26/16 [Last Taken Unknown] I have personally reviewed and updated: medical history - Past Medical History coronary artery disease (Known coronary disease but has not undergone interventional cardiac catheterization), ESRD (Does not have access to outpatient hemodialysis), GI bleed, GERD (Anemia of chronic disease, H/O UGIB x2 (first on Plavix +ASA, then on ASA alone), esophagitis), hypertension Additional medical history: Anemia of chronic kidney disease; upper GI bleed in the setting of anti-platelet medications, has occurred while on single and double agent therapy; 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; esophagitis - Surgical History Additional surgical history: R IJ tunneled catheter - Family History Additional family history: Mother with CVA and HTN - Social History Smoking Status: Former smoker Additional social history: Currently living alone while his son is in [place] , has been alone for approximately 2 months and is unclear when his son is going to return Review of Systems ROS: 10pt was reviewed & negative except for what was stated in HPI & below Physical Exam Temp Pulse Resp BP Pulse Ox 36.3 C 68 12 168/92 H 94 07/26/16 14:29 07/26/16 18:08 07/26/16 15:55 07/26/16 18:08 07/26/16 15:55 Constitutional: no apparent distress, chronically ill appearing Eyes: PERRL, anicteric sclera, EOMI Ears, Nose, Mouth, Throat: moist mucous membranes, hearing normal, no oral mucosal ulcers Cardiovascular: regular rate and rhythym, pulses symmetric bilaterally Peripheral Pulses: 2+: dorsalis-pedis (R), dorsalis-pedis (L) Respiratory: no respiratory distress, no rales or rhonchi, clear to auscultation Gastrointestinal: normoactive bowel sounds, soft, non-tender abdomen Skin: warm, no rashes or abrasions Musculoskeletal: full muscle strength, no joint effusions Neurologic: AAOx3, CN II-XII Intact Psychiatric: interacting appropriately, not encephalopathic Lab Data & Imaging Review 07/26/16 12:15 07/26/16 15:30 WBC 4.18 10^3/uL (3.80-9.50) 07/26/16 12:15 RBC 2.26 10^6/uL (4.40-6.38) L 07/26/16 12:15 Hgb 7.1 g/dL (13.7-17.5) L 07/26/16 12:15 POC Hgb 6.8 gm/dL (14.5-17.3) L 07/26/16 12:13 Hct 21.6 % (40.0-51.0) L 07/26/16 12:15 POC Hct 20 % (42.8-50.6) L 07/26/16 12:13 MCV 95.6 fL (81.5-99.8) 07/26/16 12:15 MCH 31.4 pg (27.9-34.1) 07/26/16 12:15 MCHC 32.9 g/dL (32.4-36.7) 07/26/16 12:15 RDW 18.2 % (11.5-15.2) H 07/26/16 12:15 Plt Count 107 10^3/uL (150-400) L 07/26/16 12:15 MPV 10.4 fL (8.7-11.7) 07/26/16 12:15 Neut % (Auto) 62.7 % (39.3-74.2) 07/26/16 12:15 Lymph % (Auto) 17.5 % (15.0-45.0) 07/26/16 12:15 [place] % (Auto) 8.9 % (4.5-13.0) 07/26/16 12:15 Eos % (Auto) 8.9 % (0.6-7.6) H 07/26/16 12:15 Baso % (Auto) 1.0 % (0.3-1.7) 07/26/16 12:15 Nucleat RBC Rel Count 0.0 % (0.0-0.2) 07/26/16 12:15 Absolute Neuts (auto) 2.63 10^3/uL (1.70-6.50) 07/26/16 12:15 Absolute Lymphs (auto) 0.73 10^3/uL (1.00-3.00) L 07/26/16 12:15 Absolute Monos (auto) 0.37 10^3/uL (0.30-0.80) 07/26/16 12:15 Absolute Eos (auto) 0.37 10^3/uL (0.03-0.40) 07/26/16 12:15 Absolute Basos (auto) 0.04 10^3/uL (0.02-0.10) 07/26/16 12:15 Absolute Nucleated RBC 0.00 10^3/uL (0-0.01) 07/26/16 12:15 Immature Gran % 1.0 % (0.0-1.1) 07/26/16 12:15 Immature Gran # 0.04 10^3/uL (0.00-0.10) 07/26/16 12:15 PT 15.9 SEC (12.0-15.0) H 07/26/16 12:15 INR 1.27 (0.83-1.16) H 07/26/16 12:15 APTT 30.5 SEC (23.0-38.0) 07/26/16 12:15 POC Sodium 141 mEq/L (134-144) 07/26/16 12:13 Sodium 144 mEq/L (134-144) 07/26/16 13:40 POC Potassium 7.0 mEq/L (3.3-5.0) H* 07/26/16 12:13 Potassium 6.2 mEq/L (3.5-5.2) H 07/26/16 15:30 POC Chloride 117 mEq/L (96-108) H 07/26/16 12:13 Chloride 110 mEq/L (97-110) 07/26/16 13:40 Carbon Dioxide 8 mEq/l (22-31) L* 07/26/16 13:40 Anion Gap 26 mEq/L (8-16) 07/26/16 13:40 POC BUN > 140 mg/dL (7-23) H* 07/26/16 12:13 BUN 182 mg/dL (7-23) H* 07/26/16 13:40 Creatinine 19.4 mg/dL (0.7-1.3) H* 07/26/16 13:40 POC Creatinine > 20.0 mg/dL (0.8-1.5) H* 07/26/16 12:13 Estimated GFR 2 07/26/16 13:40 Glucose 94 mg/dL (70-100) 07/26/16 13:40 POC Glucose 91 mg/dL (70-100) 07/26/16 12:13 Calcium 9.1 mg/dL (8.5-10.4) 07/26/16 13:40 Phosphorus REJ 07/26/16 12:15 Total Bilirubin REJ 07/26/16 12:15 Conjugated Bilirubin REJ 07/26/16 12:15 Unconjugated Bilirubin REJ 07/26/16 12:15 AST REJ 07/26/16 12:15 ALT REJ 07/26/16 12:15 Alkaline Phosphatase REJ 07/26/16 12:15 Total Protein REJ 07/26/16 12:15 Albumin REJ 07/26/16 12:15 Lipase REJ 07/26/16 12:15 Patient ABO/Rh O POSITIVE 07/26/16 12:40 Antibody Screen NEGATIVE 07/26/16 12:40 Assessment & Plan Assessment: Assessment/Plan: ESRD: pt with no outpatient dialysis unit, comes to ED for prn HD. - Will do HD today and again tomorrow. Hyperkalemia: pt got insulin, D50, kayexalate, and bicarb. - Will modulate on HD. Metabolic acidosis: 2/2 ESRD, will modulate on HD. Anemia: pt with hgb of 7.1. - Will give epo with HD today. - Will transfuse 1 unit PRBCs with HD tomorrow.
[2016-07-27] MEDS: PANTOPRAZOLE SODIUM 40 MG TAB PO SCH ×2 (00:23→08:54)
[2016-07-27 04:57] LABS: % IMMATURE GRANULYOCYTES 0.3 % (0.0-1.1); ABSOLUTE IMMATURE GRANULOCYTES 0.01 10^3/uL (0.00-0.10); ADD DIFF? NO; ADD MORPH? YES; ADD SCAN? NO; ATYPICAL LYMPHOCYTE FLAG 0 (0-99); FRAGMENT RBC FLAG 0 (0-99); HEMATOCRIT 19.7 % (40.0-51.0); LEFT SHIFT FLG 0 (0-99); LIPEMIA HEMOLYSIS FLAG 90 (0-99); MEAN CELL HEMOGLOBIN 31.2 pg (27.9-34.1); MEAN CELL HEMOGLOBIN CONCENTR. 34.5 g/dL (32.4-36.7); MEAN CELL VOLUME 90.4 fL (81.5-99.8); MEAN PLATELET VOLUME 9.5 fL (8.7-11.7); PLATELET CLUMPS FLAG 0 (0-99); PLATELET COUNT 89 10^3/uL (150-400); RED BLOOD CELL COUNT 2.18 10^6/uL (4.40-6.38); RED CELL DISTRIBUTION WIDTH 17.6 % (11.5-15.2)
[2016-07-27 05:07] LABS: HEMOGLOBIN 6.8 g/dL (13.7-17.5)
[2016-07-27 05:29] LABS: ALBUMIN 4.1 g/dL (3.5-5.0); ANION GAP 19 mEq/L (8-16); CALCIUM 8.5 mg/dL (8.5-10.4); CARBON DIOXIDE 20 mEq/l (22-31); CHLORIDE 107 mEq/L (97-110); GLOMERULAR FILTRATION RATE 5; GLUCOSE 103 mg/dL (70-100); POTASSIUM 4.1 mEq/L (3.5-5.2); SODIUM 146 mEq/L (134-144)
[2016-07-27 05:37] LABS: CREATININE 11.2 mg/dL (0.7-1.3); PLATELET ESTIMATE DECREASED (ADEQ)
[2016-07-27 05:38] LABS: HYPOCHROMIA 1+; POLYCHROMASIA 1+
[2016-07-27 05:39] LABS: MICROCYTES 1+
[2016-07-27] MEDS: METOPROLOL SUCCINATE XR 100 MG TAB PO SCH (08:54)
[2016-07-27] MEDS: CALCIUM CARBONATE 500 MG CHEWABLE TAB PO SCH ×3 (08:54→18:24)
[2016-07-27] MEDS: CALCITRIOL 0.25 MCG CAP PO SCH (08:55)
[2016-07-27] MEDS: CLOPIDOGREL BISULFATE 75 MG TAB PO SCH (08:55)
[2016-07-27] MEDS: ATORVASTATIN CALCIUM 40 MG TAB PO SCH (08:55)
[2016-07-27] MEDS: oxyCODONE IR 5 MG TAB PO PRN ×2 (08:55→21:02)
[2016-07-27] MEDS: HEPARIN 5,000 UNIT/0.5 ML SYR SC SCH ×2 (09:44→12:29)
--- NOTE | 2016-07-27 14:54 | SOAPPROG ---
JACQUELINE Progress Note Assessment/Plan: Assessment: ESRD hyperkalemia, better HTN, better Plan: HD today HD tomorrow support 07/27/16 14:52 Objective: Vital Signs Temp Pulse Resp BP Pulse Ox 36.5 C 61 18 150/72 H 96 07/27/16 12:00 07/27/16 12:00 07/27/16 12:00 07/27/16 12:00 07/27/16 12:00 Laboratory Results 07/27/16 04:29 07/27/16 04:29 07/26/16 07/27/16 07/28/16 05:59 05:59 05:59 Intake Total 300 Output Total 2000 Balance -1700 PT 15.9 SEC (12.0-15.0) H 07/26/16 12:15 INR 1.27 (0.83-1.16) H 07/26/16 12:15 Physical Exam - Physical Exam General Appearance: alert, thin Respiratory: No rales, No rhonchi, No wheezing Cardiac/Chest: No edema, No friction rub Abdomen: normal bowel sounds, non-tender, soft Extremities: No swelling Neuro/Psych: alert, normal mood/affect, oriented x 3 ICD10 Worksheet Patient Problems: Problems Problem Status Diagnosed End stage renal disease Acute Abdominal pain Acute Acute renal failure Acute Acute upper GI bleed Acute Anemia Acute Anemia associated with acute blood loss Acute Diarrhea Acute Hyperkalemia Acute Hypertension Acute Hypocalcemia Acute Metabolic acidosis Acute Renal failure Acute
--- NOTE | 2016-07-27 16:03 | HOSPPROG ---
Hospitalist Progress Note Assessment/Plan: ESRD - HD per Renal Hyperkalemia - improved, cont HD Anemia of chronic kidney disease - Hgb 6.8 this am. PRBC's with dialysis today. He also typically receives Epo injections when hospitalized per renal. Would aim to keep his hgb >8 given his severe CAD CAD - severe. See h&p for details. CP free. Cont Plavix, BB, statin Shingles - this explains his left side/flank pain on presentation yesterday. U/ S was normal. Will start Valtrex today, treat through 08/03, pain control. H/O GI bleed x2 in fall 2015. Bled on ASA/Plavix, then on ASA alone. We resumed Plavix as monotherapy for CAD 2 weeks ago, tolerating thus far without e /o GI bleeding. Monitor closely. DVT PPLX - Lovenox Full code Dispo - cont inpt for ongoing dialysis needs Subjective: Pt resting comfortably. Continues to have pain in left side / flank. No fevers. No N/V. Feels better today after dialysis yesterday. Objective: Vital Signs Temp Pulse Resp BP Pulse Ox 36.5 C 61 18 150/72 H 96 07/27/16 12:00 07/27/16 12:00 07/27/16 12:00 07/27/16 12:00 07/27/16 12:00 Laboratory Results 07/27/16 04:29 07/27/16 04:29 07/26/16 07/27/16 07/28/16 05:59 05:59 05:59 Intake Total 300 Output Total 2000 Balance -1700 PT 15.9 SEC (12.0-15.0) H 07/26/16 12:15 INR 1.27 (0.83-1.16) H 07/26/16 12:15 - Physical Exam Constitutional: no apparent distress Eyes: PERRL Ears, Nose, Mouth, Throat: moist mucous membranes Cardiovascular: regular rate and rhythym Respiratory: no respiratory distress, other (b/l atelectatic crackles at bases) Gastrointestinal: normoactive bowel sounds, soft, non-tender abdomen Skin: other (left side / flank with multiple areas of vesicles in a dermatomal distribution) Neurologic: AAOx3 Psychiatric: interacting appropriately ICD10 Worksheet Patient Problems: Problems Problem Status Diagnosed End stage renal disease Acute Abdominal pain Acute Acute renal failure Acute Acute upper GI bleed Acute Anemia Acute Anemia associated with acute blood loss Acute Diarrhea Acute Hyperkalemia Acute Hypertension Acute Hypocalcemia Acute Metabolic acidosis Acute Renal failure Acute
[2016-07-27] MEDS ORDERED: valACYclovir 500 MG TAB PO SCH (16:30)
[2016-07-27] MEDS ORDERED: HEPARIN 50,000 UNIT/10 ML VIAL ONE (23:59)
[2016-07-28] MEDS: PANTOPRAZOLE SODIUM 40 MG TAB PO SCH ×3 (00:34→20:13)
[2016-07-28] MEDS: HEPARIN 5,000 UNIT/0.5 ML SYR SC SCH ×3 (00:34→13:06)
[2016-07-28] MEDS: valACYclovir 500 MG TAB PO SCH ×2 (00:34→20:12)
[2016-07-28 04:38] LABS: HEMATOCRIT 25.2 % (40.0-51.0); MEAN CELL HEMOGLOBIN 29.8 pg (27.9-34.1); MEAN CELL HEMOGLOBIN CONCENTR. 35.7 g/dL (32.4-36.7); MEAN CELL VOLUME 83.4 fL (81.5-99.8); RED BLOOD CELL COUNT 3.02 10^6/uL (4.40-6.38); RED CELL DISTRIBUTION WIDTH 18.3 % (11.5-15.2)
[2016-07-28 05:09] LABS: ALBUMIN 3.9 g/dL (3.5-5.0); ANION GAP 13 mEq/L (8-16); CALCIUM 8.6 mg/dL (8.5-10.4); CARBON DIOXIDE 27 mEq/l (22-31); CHLORIDE 100 mEq/L (97-110); CREATININE 5.6 mg/dL (0.7-1.3); GLOMERULAR FILTRATION RATE 10; GLUCOSE 99 mg/dL (70-100); SODIUM 140 mEq/L (134-144)
[2016-07-28] MEDS: ATORVASTATIN CALCIUM 40 MG TAB PO SCH (08:51)
[2016-07-28] MEDS: METOPROLOL SUCCINATE XR 100 MG TAB PO SCH (08:51)
[2016-07-28] MEDS: CALCITRIOL 0.25 MCG CAP PO SCH (08:51)
[2016-07-28] MEDS: CLOPIDOGREL BISULFATE 75 MG TAB PO SCH (08:51)
[2016-07-28] MEDS: CALCIUM CARBONATE 500 MG CHEWABLE TAB PO SCH ×3 (08:51→17:13)
[2016-07-28] MEDS: oxyCODONE IR 5 MG TAB PO PRN ×2 (08:51→20:12)
[2016-07-28] MEDS ORDERED: HEPARIN 50,000 UNIT/10 ML VIAL ONE (14:31)
[2016-07-28 15:32] VITALS: BP 148/80; PULSE 57; RESP 16; TEMP 97.7; O2SAT 98
--- NOTE | 2016-07-28 16:53 | GDS ---
[f rep st] DISCHARGE SUMMARY DISCHARGE DIAGNOSES: 1. End-stage renal disease. 2. Hyperkalemia, resolved. 3. Anemia of chronic kidney disease, status post 1 unit of packed red blood cells. 4. Coronary artery disease. 5. Shingles. 6. History of GI bleed, stable. CONSULTANTS: Dr. Krystal Wolfe of Nephrology. HISTORY: For details please see dictated history and physical dated July 26, 2016. In brief, the patient is a 66-year-old male with a history of end-stage renal disease and unfortunately no access to outpatient dialysis services who presents to the emergency department in need of emergent dialysis . HOSPITAL COURSE: Upon admission, the patient had a serum potassium of 7 and repeat potassium is 8. He received calcium gluconate, insulin, dextrose, 2 amps of sodium bicarb and Kayexalate on arrival. His potassium after those interventions decreased to 6.2. He underwent emergent dialysis that eveni ng through his right tunneled IJ catheter. He required 2 more consecutive days of hemodialysis. At the time of discharge, his electrolytes were normal. His creatinine is 5.6, down from 19.4. 2 L wer e removed during dialysis today. His hemoglobin the day prior to discharge was 6.8, and he received 1 unit of packed red blood cells during his dialysis yesterday. His hemoglobin on discharge is 9. H e has had no chest pain. He does have severe coronary artery disease, and has been continued on Plav ix for the past several weeks without evidence of GI bleeding. He does have a history of GI bleeding which first occurred on dual antiplatelet therapy. His Plavix was then discontinued and he bled on aspirin monotherapy. In his hospital discharge 2 weeks ago Plavix monotherapy was resumed as he had been treated with several months of PPI therapy and given the severity of his coronary artery disease he warranted retrial on Plavix monotherapy which is less likely to irritate the GI tract compared to aspirin. So far, he seems to be tolerating this okay. He also complained of left-sided flank pain on arrival. Renal ultrasound was unremarkable. The foll day, he developed a vesicular rash in a dermatomal pattern, was diagnosed with shingles and was started on renally dosed Valtrex. He was discharged to complete a one-week course of Valtrex along with oxycodone for pain control. DISPOSITION: Patient is discharged home in stable condition. FOLLOWUP: Patient instructed to return to the emergency department in 5-7 days for repeat dialysis. I counseled him to not wait so long as he is putting his life at risk by waiting until he develops l bren-threatening potassium complications of his renal disease. He agrees to return within the week. DISCHARGE MEDICATIONS: Please see [email or web address] for complete updated outpatient medication list. New med ications on discharge include Valtrex 500 mg p.o. at bedtime #6 no refills and oxycodone 5-10 mg p.o. q.6 hours p.r.n. #20 no refills. He will continue all other medications as prescribed. FOLLOWUP: Patient will follow up with his primary care physician. He unfortunately does not have [facility] outpatient Nephrology followup due to his inability to obtain outpatient dialysis access given his [facility] national status. /[id number]/MODL
== END 2016-07-28 20:57 | disposition home or self-care (01) | DRG 684 ==
LOC: F2W 14:20
PROVIDERS: ADMIT Hospitalist; ATTEND Hospitalist
PROC: 5A1D60Z (ICD-10-PCS; principal; 2016-07-26)
PROC: 30233N1 Transfusion of Nonautologous Red Blood Cells into Peripheral Vein, Percutaneous Approach (ICD-10-PCS; 2016-07-27)
DX: N18.6 End stage renal disease (principal); E87.5 Hyperkalemia; I25.10 Atherosclerotic heart disease of native coronary artery without angina pectoris; K21.9 Gastro-esophageal reflux disease without esophagitis; D63.1 Anemia in chronic kidney disease; I12.0 Hypertensive chronic kidney disease with stage 5 chronic kidney disease or end stage renal disease; B02.9 Zoster without complications; M10.9 Gout, unspecified; Z91.15 Patient's noncompliance with renal dialysis; Z95.5 Presence of coronary angioplasty implant and graft; Z87.891 Personal history of nicotine dependence; Z99.2 Dependence on renal dialysis
CPT/HCPCS: 82947-QW; 96374; J0610; J1644; J1815; J3010; P9016

== ENCOUNTER → 2016-07-31 | Outpatient (CLI) | payer MEDICAID ==
--- NOTE | 2016-07-31 17:23 | DX ---
Lumbar Spine, Four Views Indication: Pain. Evaluate for instability. Technique: Upright AP and lateral views in the neutral, flexed, and extended position. Comparison: None. Findings: Five nonrib-bearing lumbar vertebral bodies have minimal dextrocurvature, apex at L2-L3. Alignment is normal on the lateral view. Limited range of motion with flexion/extension maneuvers. No instability. Minimal degenerative disk disease extends from T12-L1 to L4-L5, and mild facet arthr opathy is present at L4-L5 and L5-S1. No compression fracture or pars defect. Impression: 1. No instability. 2. No compression fracture or pars defect. 3. Minimal multilevel degenerative disk and mild facet arthropathy.
== END ==
LOC: FIMAGING 16:02
PROVIDERS: ATTEND Physician Assistant
DX: M54.5 Low back pain (principal)

== ENCOUNTER 2016-08-04 11:30 | Inpatient (IN) | payer SELFPAY ==
[2016-08-04] MEDS ORDERED: ACYCLOVIR 400 MG TAB PO ONE (13:53)
[2016-08-04] MEDS ORDERED: ONDANSETRON 4 MG/2 ML VIAL IVP ONE (13:54)
--- NOTE | 2016-08-04 13:54 | EDPHY ---
H & P Stated Complaint: c/o dizziness.,nausea , "need dialysis" abd pain Time Seen by Provider: 08/04/16 13:38 HPI/ROS: CHIEF COMPLAINT: Knee dialysis, shingles HISTORY OF PRESENT ILLNESS: The patient is a 66-year-old man who comes to the hospital every week or so to receive dialysis. Unfortunately he does not have reliable outpatient dialysis because of his social situation. He states that he has began to feel weak and lightheaded. Also is complaining of shingles rash to his left flank. It was initially treated a week ago here in the hospital with acyclovir. The patient states he stop taking his medication yesterday because it was making Him nauseous. REVIEW OF SYSTEMS: Constitutional: denies: chills, fever, recent illness, recent injury EENTM: denies: blurred vision, double vision, nose congestion Respiratory: denies: cough, shortness of breath Cardiac: denies: chest pain, irregular heart rate, lightheadedness, palpitations Gastrointestinal/Abdominal: denies: abdominal pain, diarrhea, nausea, vomiting, blood streaked stools Genitourinary: denies: dysuria, frequency, hematuria, pain Musculoskeletal: denies: joint pain, muscle pain Skin: See HPI Neurological: denies: headache, numbness, paresthesia, tingling, dizziness, weakness Hematologic/Lymphatic: denies: blood clots, easy bleeding, easy bruising Immunologic/allergic: denies: HIV/AIDS, transplant EXAM: GENERAL: Well-appearing, well-nourished and in no acute distress. HEAD: Atraumatic, normocephalic. EYES: Pupils equal round and reactive to light, extraocular movements intact, sclera anicteric, conjunctiva are normal. ENT: TMs normal, nares patent, oropharynx clear without exudates. Moist mucous membranes. NECK: Normal range of motion, supple without lymphadenopathy or JVD. LUNGS: Breath sounds clear to auscultation bilaterally and equal. No wheezes rales or rhonchi. HEART: Regular rate and rhythm without murmurs, rubs or gallops. ABDOMEN: Soft, nontender, normoactive bowel sounds. No guarding, no rebound. No masses appreciated. BACK: No CVA tenderness, no spinal tenderness, step-offs or deformities EXTREMITIES: Normal range of motion, no pitting or edema. No clubbing or cyanosis. NEUROLOGICAL: Cranial nerves II through XII grossly intact. Normal speech, normal gait. 5/5 strength, normal movement in all extremities, normal sensation PSYCH: Normal mood, normal affect. SKIN: Scaly, discolored rash to left flank an dermatomal pattern. 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 Exam Limitations: No limitations - Personal History Current Tetanus/Diphtheria Vaccine: Yes Current Tetanus Diphtheria and Acellular Pertussis (TDAP): Yes Tetanus Vaccine Date: 2010 - Medical/Surgical History Hx Asthma: No Hx Chronic Respiratory Disease: No Hx Diabetes: No Hx Cardiac Disease: Yes Hx Renal Disease: Yes Hx Cirrhosis: No Hx Alcoholism: No Hx HIV/AIDS: No Hx Splenectomy or Spleen Trauma: No Other PMH: gout, htn, hernia, anemia, cad, esophagitis, ulcer, renal failure, prn dialysis, heart stent - Social History Smoking Status: Former smoker Alcohol Use: Sober Drug Use: None Constitutional: Initial Vital Signs Temperature (C) 36.3 C 08/04/16 12:08 Heart Rate 62 08/04/16 12:08 Respiratory Rate 16 08/04/16 12:08 Blood Pressure 182/83 H 08/04/16 12:08 O2 Sat (%) 98 08/04/16 12:08 O2 Delivery Mode Room Air Allergies/Adverse Reactions: No Known Allergies Allergy (Verified 07/02/16 12:05) Home Medications: Medication Instructions Recorded Ergocalciferol [Vitamin D2 (*)] 50,000 unit PO TU 11/10/15 Calcitriol [Calcitriol (*)] 0.25 mcg PO DAILY #30 cap 12/20/15 Calcium Carbonate [Tums 500MG (*)] 1,000 mg PO TIDMEAL #0 tab.chew 03/30/16 Atorvastatin Calcium [Lipitor 40 80 mg PO DAILY 07/02/16 mg (*)] hydrALAZINE [Apresoline 50 mg (*)] 25 mg PO TIDMEAL 07/02/16 Clopidogrel Bisulfate [Plavix (*)] 75 mg PO DAILY #30 tab 07/15/16 Metoprolol Succinate Xr [Toprol Xl 100 mg PO DAILY #30 tab.sr 07/15/16 100 mg (*)] oxyCODONE IR [Oxycodone Ir (*)] 5 - 10 mg PO Q6H PRN #20 tab 07/28/16 valACYclovir [Valtrex (*)] 500 mg PO HS #6 tab 07/28/16 Calcium Carbonate/Vitamin D3 1 each PO QID 08/04/16 [CALCIUM 600 + VIT D TABLET] Vit B Cmplx 3/FA/Vit C/Biotin 1 each PO DAILY 08/04/16 [Ev-Peyton Rx Tablet] Medical Decision Making ED Course/Re-evaluation: I will treat the patient with acyclovir and initiate lab work and likely dialysis. I spoke with Vicki who accepted for Dr. Rich. Differential Diagnosis: Partial list of the Differential diagnosis considered include but were not limited to; hyperkalemia, dehydration, shingles and although unlikely based on the history and physical exam, I also considered acute coronary disease, hyperglycemia, sepsis. - Data Points Medications Given: Discontinued Medications Acyclovir (Acyclovir) 400 mg PO EDNOW ONE Stop: 08/04/16 13:54 Last Admin: 08/04/16 17:25 Dose: Not Given Ondansetron HCl (Zofran) 4 mg IVP EDNOW ONE Stop: 08/04/16 13:55 Last Admin: 08/04/16 14:25 Dose: 4 mg Departure - Departure Disposition: [facility] Acute Clinical Impression: Renal failure, Shingles (herpes zoster) polyneuropathy Condition: Fair
[2016-08-04 14:18] LABS: % IMMATURE GRANULYOCYTES 0.3 % (0.0-1.1); ABSOLUTE IMMATURE GRANULOCYTES 0.02 10^3/uL (0.00-0.10); ADD DIFF? NO; ADD MORPH? NO; ADD SCAN? NO; ATYPICAL LYMPHOCYTE FLAG 20 (0-99); FRAGMENT RBC FLAG 0 (0-99); HEMATOCRIT 23.6 % (40.0-51.0); LEFT SHIFT FLG 0 (0-99); LIPEMIA HEMOLYSIS FLAG 90 (0-99); MEAN CELL HEMOGLOBIN 29.7 pg (27.9-34.1); MEAN CELL HEMOGLOBIN CONCENTR. 33.9 g/dL (32.4-36.7); MEAN CELL VOLUME 87.7 fL (81.5-99.8); MEAN PLATELET VOLUME 9.7 fL (8.7-11.7); PLATELET CLUMPS FLAG 0 (0-99); PLATELET COUNT 112 10^3/uL (150-400); RED BLOOD CELL COUNT 2.69 10^6/uL (4.40-6.38); RED CELL DISTRIBUTION WIDTH 19.2 % (11.5-15.2)
[2016-08-04 14:52] LABS: ANION GAP 26 mEq/L (8-16); CARBON DIOXIDE 16 mEq/l (22-31); CHLORIDE 98 mEq/L (97-110); GLUCOSE 106 mg/dL (70-100); POTASSIUM 5.8 mEq/L (3.5-5.2); SODIUM 140 mEq/L (134-144)
[2016-08-04] MEDS ORDERED: ONDANSETRON 4 MG/2 ML VIAL IVP PRN (16:06)
[2016-08-04] MEDS ORDERED: oxyCODONE IR 5 MG TAB PO PRN (16:06)
[2016-08-04] MEDS ORDERED: ACETAMINOPHEN 325 MG TAB PO PRN (16:06)
[2016-08-04] MEDS ORDERED: ONDANSETRON DISINTEGRATING 4 MG TAB PO PRN (16:06)
[2016-08-04] MEDS ORDERED: PROMETHAZINE HCL 25 MG/ML INJ IVP PRN (16:06)
[2016-08-04 16:16] LABS: GLOMERULAR FILTRATION RATE 3
[2016-08-04 16:17] LABS: CALCIUM 5.8 mg/dL (8.5-10.4); CREATININE 15.9 mg/dL (0.7-1.3)
--- NOTE | 2016-08-04 16:43 | GHP ---
[f rep st] HISTORY AND PHYSICAL DATE OF ADMISSION: 08/04/2016 HISTORY OF PRESENT ILLNESS: The patient is a 66-year-old gentleman with a history of endstage renal disease, and no outpatient axis dialysis, who presents with nausea, vomiting, and diarrhea, which is consistent with his previous presentations with no hemodialysis. His last admission here was 9 days ago, at which time he received dialysis and a transfusion of packed red cells. He also had an intercurrent treatment for left flank zoster. I can tell he received valacyclovir and acyclovir in the emergency department today. He also complains of poor sleep and feeling lightheade d or out of it. There is a bit of a language barrier in speaking with the patient. He self-discontinued the medication yesterday because of nausea, although he has nausea with no dialy sis. REVIEW OF SYSTEMS: Complete 10-point review of systems conducted and negative except as noted in the HPI. PAST MEDICAL HISTORY: 1. End-stage renal disease. 2. History of coronary disease, on Plavix. 3. History of upper GI bleed in the setting of aspirin and Plavix. 4. Hypertension. 5. Anemia of chronic kidney disease. 6. Shingles. FAMILY HISTORY: Mother had CVA and hypertension. SOCIAL HISTORY: Former smoker. ALLERGIES: No known drug allergies. HOME MEDICATIONS: Valacyclovir 500 h.s., oxycodone, Plavix, vitamin D2, calcium carbonate, Tums, scott rvastatin, calcitriol, Toprol-XL 100, Ev-Peyton, hydralazine. PHYSICAL EXAM: VITAL SIGNS: Presenting vitals: Temperature 36.3, blood pressure 182/83, pulse 62, breathing 16 times a minute, 98 on room air. GENERAL: No acute distress. HEENT: Sclerae anicteric . Oropharynx clear. Mucous membranes are moist. NECK: Supple. No lymphadenopathy, but he does florentino ve elevated JVD. LUNGS: Clear to auscultation bilaterally. HEART: S1, S2. A tunneled catheter is clean dry and intact without fluctuance or surrounding erythema. ABDOMEN: Soft, nontender, nondist ended. On his left flank there is healed and crusted over shingles rash. LABS: Telemetry, interpreted by me, shows sinus with peaked T-waves, normal QRS intervals. EKG is pending. White count 5.8, hemoglobin 8, hematocrit 23.6, platelets are 112,000. These are all baseline for hi m. Chem-7 is inexplicably pending for the last 2 hours. There is no imaging. I have discussed the case Dr. Gibson Victoria. ASSESSMENT/PLAN: A 66-year-old gentleman presents for dialysis. 1. Hemodialysis: I suspect the patient will have to be hyperkalemic and acidemic, as he typically i s. His telemetry, at this point in time, does not have significant evidence of hyperkalemic associat ed changes. I will follow up on his labs when they are available. Renal has been consulted. 2. Shingles: I think the patient's shingles have healed, and further acyclovir valacyclovir treatme nt is not warranted; however, will start him on Neurontin 100 three times daily given his pain. 3. Hypertension: Continue his Toprol and hydralazine. 4. Hyperlipidemia: Continue his atorvastatin. 5. Coronary disease: Continue his Plavix, statin and beta bonifacio. 6. Disposition: Observation status. /[id number]/MODL
[2016-08-04] MEDS: CALCIUM CARBONATE 500 MG CHEWABLE TAB PO SCH (17:08)
[2016-08-04] MEDS: GABAPENTIN 100 MG CAP PO SCH ×2 (17:10→22:38)
--- NOTE | 2016-08-04 20:13 | CPEKG ---
Heart Rate: 52 RR Interval: 1154 P-R Interval: 184 QRSD Interval: 104 QT Interval: 524 QTC Interval: 488 P [place]: 68 QRS [place]: 59 T Wave [place]: 58 EKG Severity - BORDERLINE ECG - EKG Impression: SINUS RHYTHM EKG Impression: BORDERLINE PROLONGED QT INTERVAL Electronically Signed By: Rashad Flaherty 05-Aug-2016 16:21:34
[2016-08-04] MEDS ORDERED: NON-FORMULARY NEW DRUG (Calcium Carbonate/Vitamin D3 [Calcium 600 + Vit D Tablet] 1 EACH) PO SCH (21:00)
[2016-08-04] MEDS: CALCIUM CARB W/VIT D 500 MG TAB PO SCH (22:38)
[2016-08-05 05:56] LABS: % IMMATURE GRANULYOCYTES 0.2 % (0.0-1.1); ABSOLUTE IMMATURE GRANULOCYTES 0.01 10^3/uL (0.00-0.10); ADD DIFF? NO; ADD MORPH? NO; ADD SCAN? NO; ATYPICAL LYMPHOCYTE FLAG 10 (0-99); FRAGMENT RBC FLAG 0 (0-99); HEMOGLOBIN 7.2 g/dL (13.7-17.5); LEFT SHIFT FLG 0 (0-99); LIPEMIA HEMOLYSIS FLAG 90 (0-99); MEAN CELL HEMOGLOBIN 29.6 pg (27.9-34.1); MEAN CELL HEMOGLOBIN CONCENTR. 34.3 g/dL (32.4-36.7); MEAN CELL VOLUME 86.4 fL (81.5-99.8); MEAN PLATELET VOLUME 9.8 fL (8.7-11.7); PLATELET CLUMPS FLAG 10 (0-99); PLATELET COUNT 113 10^3/uL (150-400); RED BLOOD CELL COUNT 2.43 10^6/uL (4.40-6.38); RED CELL DISTRIBUTION WIDTH 18.9 % (11.5-15.2)
[2016-08-05 07:08] LABS: CALCIUM 5.2 mg/dL (8.5-10.4); CARBON DIOXIDE 16 mEq/l (22-31); CHLORIDE 100 mEq/L (97-110); GLUCOSE 96 mg/dL (70-100); SODIUM 137 mEq/L (134-144)
[2016-08-05] MEDS: CALCIUM CARB W/VIT D 500 MG TAB PO SCH ×4 (07:35→21:37)
[2016-08-05 07:41] LABS: CREATININE 16.6 mg/dL (0.7-1.3); GLOMERULAR FILTRATION RATE 3
[2016-08-05 07:45] LABS: ANION GAP 21 mEq/L (8-16)
[2016-08-05 08:27] LABS: POTASSIUM 7.5 mEq/L (3.5-5.2)
[2016-08-05 08:28] LABS: POTASSIUM 7.4 mEq/L (3.5-5.2)
[2016-08-05] MEDS ORDERED: INSULIN REGULAR HUMAN 100 UNIT/ML IVP ONE (08:38)
[2016-08-05] MEDS ORDERED: CALCIUM GLUCONATE 50 ML IV ONE (08:38)
[2016-08-05] MEDS ORDERED: SODIUM BICARBONATE 50 MEQ/50 ML SYR IVP ONE ×2 (08:38→09:00)
[2016-08-05] MEDS ORDERED: D50W 25 GM/50 ML SYR IVP PRN (08:38)
--- NOTE | 2016-08-05 08:46 | SOAPPROG ---
SOAP Progress Note Assessment/Plan: Assessment:Plan: ESRD Severe hyperkalemia h/o shingles, no new vesicles Hallucinations due to famvir toxicity Malaise, anorexia and itching Plan to treat hyperkalemia acutely Dialysis today and daily No further antivirals Caution with dose of gabapetin given ESRD. 08/05/16 08:41 Subjective: complains of malaise, dry mouth, no appetite relates that he had hallucinations while taking Famvir 500mg daily, now stopped Objective: Vital Signs Temp Pulse Resp BP Pulse Ox 36.8 C 58 L 12 168/75 H 92 08/05/16 04:02 08/05/16 04:02 08/05/16 04:02 08/05/16 04:02 08/05/16 04:02 Laboratory Results 08/05/16 05:45 08/05/16 08:06 08/04/16 08/05/16 08/06/16 05:59 05:59 05:59 Intake Total 250 Balance 250 Physical Exam - Physical Exam General Appearance: mild distress EENT: normal ENT inspection Neck: normal inspection Respiratory: lungs clear, normal breath sounds Cardiac/Chest: regular rate, rhythm, No diastolic murmur, No systolic murmur Abdomen: normal bowel sounds Extremities: No swelling ICD10 Worksheet Patient Problems: Problems Problem Status Diagnosed Renal failure Acute Shingles (herpes zoster) polyneuropathy Acute Abdominal pain Acute Acute renal failure Acute Acute upper GI bleed Acute Anemia Acute Anemia associated with acute blood loss Acute Diarrhea Acute End stage renal disease Acute Hyperkalemia Acute Hypertension Acute Hypocalcemia Acute Metabolic acidosis Acute
[2016-08-05] MEDS ORDERED: BIOTIN PO SCH (09:00)
[2016-08-05] MEDS ORDERED: NA BICARBONATE 50 MEQ/50 ML VIAL IV ONE ×2 (09:00)
[2016-08-05] MEDS ORDERED: [UNRECOGNIZED DRUG - OTHER] PO SCH (09:00)
[2016-08-05] MEDS ORDERED: VIT B CMPLX PO SCH (09:00)
[2016-08-05] MEDS ORDERED: INSULIN REGULAR HUMAN 100 UNIT/ML ONE (09:13)
[2016-08-05] MEDS ORDERED: HEPARIN 50,000 UNIT/10 ML VIAL IVP ONE (10:00)
[2016-08-05] MEDS: GABAPENTIN 100 MG CAP PO SCH (11:10)
[2016-08-05] MEDS: CLOPIDOGREL BISULFATE 75 MG TAB PO SCH (11:19)
[2016-08-05] MEDS: CALCIUM CARBONATE 500 MG CHEWABLE TAB PO SCH ×3 (11:19→18:32)
[2016-08-05] MEDS: NEPHROVITE FOLIC ACID/VIT B&C 1 TAB PO SCH (11:19)
[2016-08-05] MEDS: CALCITRIOL 0.25 MCG CAP PO SCH (11:19)
[2016-08-05] MEDS: ATORVASTATIN CALCIUM 40 MG TAB PO SCH (11:22)
[2016-08-05] MEDS: METOPROLOL SUCCINATE XR 100 MG TAB PO SCH (13:43)
--- NOTE | 2016-08-05 14:52 | HOSPPROG ---
Hospitalist Progress Note Assessment/Plan: 66 yo M w/ESRD presenting with hyperkalemia and acidemia # hyperkalemia: critically high, no ecg changes on personal review of ecg. Sent for emergent HD following treatment with insulin, bicarb, calcium. Monitoring on tele. Appreciate renal input. # esrd: as above, patient does not have OP access to HD, emergent HD performed today # shingles: rash is crusting and decreasing in pain, was previously sent home on valacyclovir but given lack of access to HD had side effects including hallucinations likely related to medications and dc'ed taking them. Gabapentin for now # anemia of chronic disease: h/h remain low but stable, will monitor and tx for hgb < 7 # CAD: continue op meds # AGMA: 2/2 uremia, s/p HD # htn: continue hydralazine/metoprolol # dispo: IP status, will need > 48 hours stay given high risk presenting issues Patient new to my care. Old records reviewed and summarized as above .Care plan reviewed with renal MD. Subjective: no significant overnight events, patient states he feels ok just tired Objective: Vital Signs Temp Pulse Resp BP Pulse Ox 36.5 C 96 16 151/70 H 92 08/05/16 09:15 08/05/16 09:15 08/05/16 09:15 08/05/16 09:15 08/05/16 09:15 Laboratory Results 08/05/16 05:45 08/05/16 08:06 08/04/16 08/05/16 08/06/16 05:59 05:59 05:59 Intake Total 250 Balance 250 chronically ill appearing nad anicteric op clear rrr systolic murmur cta b soft nt nd no cce warm dry well perfused oriented appropriate ICD10 Worksheet Patient Problems: Problems Problem Status Diagnosed Renal failure Acute Shingles (herpes zoster) polyneuropathy Acute Abdominal pain Acute Acute renal failure Acute Acute upper GI bleed Acute Anemia Acute Anemia associated with acute blood loss Acute Diarrhea Acute End stage renal disease Acute Hyperkalemia Acute Hypertension Acute Hypocalcemia Acute Metabolic acidosis Acute
[2016-08-05 16:14] LABS: ALANINE AMINOTRANSFERASE 36 IU/L (21-72); ALBUMIN 3.3 g/dL (3.5-5.0); ALKALINE PHOSPHATASE 89 IU/L (38-126); ANION GAP 16 mEq/L (8-16); ASPARTATE AMINOTRANSFERASE 25 IU/L (17-59); BILIRUBIN,TOTAL 0.7 mg/dL (0.1-1.4); BILIRUBIN-CONJUGATED 0.5 mg/dL (0.0-0.5); BILIRUBIN-UNCONJUGATED 0.2 mg/dL (0.0-1.1); CALCIUM 6.9 mg/dL (8.5-10.4); CARBON DIOXIDE 26 mEq/l (22-31); CHLORIDE 97 mEq/L (97-110); GLOMERULAR FILTRATION RATE 5; GLUCOSE 159 mg/dL (70-100); POTASSIUM 4.5 mEq/L (3.5-5.2); SODIUM 139 mEq/L (134-144); TOTAL PROTEIN 5.4 g/dL (6.3-8.2)
[2016-08-05 16:19] LABS: CREATININE 9.7 mg/dL (0.7-1.3)
[2016-08-06 05:26] LABS: HEMOGLOBIN 7.3 g/dL (13.7-17.5); MEAN CELL HEMOGLOBIN 29.9 pg (27.9-34.1); MEAN CELL HEMOGLOBIN CONCENTR. 34.8 g/dL (32.4-36.7); MEAN CELL VOLUME 86.1 fL (81.5-99.8); RED BLOOD CELL COUNT 2.44 10^6/uL (4.40-6.38); RED CELL DISTRIBUTION WIDTH 18.6 % (11.5-15.2)
[2016-08-06 05:50] LABS: ANION GAP 14 mEq/L (8-16); CALCIUM 6.8 mg/dL (8.5-10.4); CARBON DIOXIDE 26 mEq/l (22-31); CHLORIDE 98 mEq/L (97-110); GLOMERULAR FILTRATION RATE 5; GLUCOSE 104 mg/dL (70-100); MAGNESIUM 1.6 mg/dL (1.6-2.3); POTASSIUM 5.6 mEq/L (3.5-5.2); SODIUM 138 mEq/L (134-144)
[2016-08-06 05:55] LABS: CREATININE 11.4 mg/dL (0.7-1.3)
[2016-08-06] MEDS: METOPROLOL SUCCINATE XR 100 MG TAB PO SCH (07:32)
[2016-08-06] MEDS: GABAPENTIN 100 MG CAP PO SCH (07:33)
[2016-08-06] MEDS: CALCIUM CARB W/VIT D 500 MG TAB PO SCH ×4 (07:37→21:22)
[2016-08-06] MEDS: CALCITRIOL 0.25 MCG CAP PO SCH (09:44)
[2016-08-06] MEDS: ATORVASTATIN CALCIUM 40 MG TAB PO SCH (09:44)
[2016-08-06] MEDS: NEPHROVITE FOLIC ACID/VIT B&C 1 TAB PO SCH (09:45)
[2016-08-06] MEDS: CLOPIDOGREL BISULFATE 75 MG TAB PO SCH ×2 (09:45→10:27)
[2016-08-06] MEDS: CALCIUM CARBONATE 500 MG CHEWABLE TAB PO SCH ×4 (09:45→18:27)
[2016-08-06] MEDS ORDERED: MAALOX/LIDO/HYOSC GI COCKTAIL 55 ML BOTTLE PO ONE (10:01)
--- NOTE | 2016-08-06 10:15 | SOAPPROG ---
SOAP Progress Note Assessment/Plan: Assessment/Plan: ESRD: Pt does not have a regular dialysis unit, comes to ER as needed for HD. - HD done today. - Will plan on HD again tomorrow. - After his discharge, pt to continue to return to ED prn for dialysis needs. HTN: uncontrolled, will increase hydralazine. Hyperkalemia: K again up to 5.6 today, will modulate with HD. ELLIOTT: Continue calcitriol and phos binder. Subjective: No acute events overnight. Pt had HD this am, having some chest pain now. BP remains elevated. No fluid removed on HD. Objective: Vital Signs Temp Pulse Resp BP Pulse Ox 37.1 C 72 12 178/87 H 89 L 08/06/16 07:31 08/06/16 07:31 08/06/16 07:31 08/06/16 07:31 08/06/16 07:31 Laboratory Results 08/06/16 04:18 08/06/16 04:18 08/05/16 08/06/16 08/07/16 05:59 05:59 05:59 Intake Total 560 Balance 560 General: alert and oriented, mild distress Eyes; EOMI, PERRL OP: Clear CV: RRR, +3/6 systolic murmur Resp: CTA bilat, nonlabored respirations on RA Abd: Soft, NT/ND Ext: +1 edema BLE Neuro: CN II-XII grossly intact Access: R IJ tunneled catheter ICD10 Worksheet Patient Problems: Problems Problem Status Diagnosed Renal failure Acute Shingles (herpes zoster) polyneuropathy Acute Abdominal pain Acute Acute renal failure Acute Acute upper GI bleed Acute Anemia Acute Anemia associated with acute blood loss Acute Diarrhea Acute End stage renal disease Acute Hyperkalemia Acute Hypertension Acute Hypocalcemia Acute Metabolic acidosis Acute
--- NOTE | 2016-08-06 10:31 | CPEKG ---
Heart Rate: 138 RR Interval: 435 QRSD Interval: 96 QT Interval: 324 QTC Interval: 491 QRS [place]: 59 T Wave Driscoll: 4 EKG Severity - ABNORMAL ECG - EKG Impression: ATRIAL FIBRILLATION EKG Impression: BORDERLINE REPOL ABNORMALITY, INF-LAT LEADS EKG Impression: BORDERLINE PROLONGED QT INTERVAL Electronically Signed By: Sommer Domingo 06-Aug-2016 12:19:53
[2016-08-06] MEDS ORDERED: NS 500 ML IV ONE (11:28)
[2016-08-06] MEDS ORDERED: DILTIAZEM 125 MG in D5W 125 ML IV SCH (11:30)
[2016-08-06] MEDS ORDERED: DILTIAZEM 25 MG/5 ML VIAL IVP ONE (11:30)
--- NOTE | 2016-08-06 12:05 | HOSPPROG ---
Hospitalist Progress Note Assessment/Plan: 66 yo M w/ESRD presenting with hyperkalemia and acidemia # Acute Atrial Fibrillation with RVR- pt Complaining of chest pain with rapid heart rate-based on chart review I do not see previous AFib . EKG( personally reviewed and interpreted) rapid AFib with ST depressions in the lateral precordial leads oxygen saturations 98% on 2 L - NS bolus - 15 mg diltiazem push x1 - Dilt drip and heart rate stone response - ordering TSH and troponin now - consulting Cardiology as patient high risk with known coronary artery disease # hyperkalemia - potassium 5.6 morning prior to hemodialysis - HD today - follow daily BMP # ESRD - HD today - patient does not tolerate fluid removal well- renal following # Shingles- no new vesicular lesions- rash is crusting and decreasing in pain- had hallucinations on valacyclovir at home - continue low-dose gabapentin # anemia of chronic disease- h/h remain low but stable 01/25 - continue to monitor and tx for hgb < 7 # CAD- currently with chest pain EKG shows ST depressions however rate is in the 150s - adding troponin to a.m. labs - consulting Cardiology - cont beta bonifacio, plavix and statin # AGMA- 2/2 ESRD - improving on HD # htn- continue hydralazine/metoprolol # dispo: IP status, will need > 48 hours stay given high risk presenting issues I have discussed the case with the RN we will push diltiazem for a 1st step towards rate control cardiology has been consulted Subjective: feels terrible Objective: Vital Signs Temp Pulse Resp BP Pulse Ox 37.1 C 80 12 178/87 H 98 08/06/16 07:31 08/06/16 11:53 08/06/16 10:40 08/06/16 07:31 08/06/16 10:40 Laboratory Results 08/06/16 04:18 08/06/16 04:18 08/05/16 08/06/16 08/07/16 05:59 05:59 05:59 Intake Total 560 Balance 560 - Physical Exam Constitutional: chronically ill appearing Eyes: anicteric sclera Ears, Nose, Mouth, Throat: dry mucous membranes Cardiovascular: irregularly irregular, tachycardia Respiratory: no respiratory distress, No inspiratory crackles Gastrointestinal: normoactive bowel sounds Genitourinary: no bladder fullness Skin: warm, normal color Musculoskeletal: No asymmetric calves Neurologic: AAOx3 Psychiatric: interacting appropriately, not anxious Lymph, Heme, Immunologic: no cervical LAD ICD10 Worksheet Patient Problems: Problems Problem Status Diagnosed Renal failure Acute Shingles (herpes zoster) polyneuropathy Acute Abdominal pain Acute Acute renal failure Acute Acute upper GI bleed Acute Anemia Acute Anemia associated with acute blood loss Acute Diarrhea Acute End stage renal disease Acute Hyperkalemia Acute Hypertension Acute Hypocalcemia Acute Metabolic acidosis Acute
[2016-08-06 14:06] LABS: TROPONIN I < 0.012 ng/mL (0-0.034)
[2016-08-06] MEDS ORDERED: AMIODARONE HCL 200 ML IV ONE (15:02)
[2016-08-06] MEDS ORDERED: AMIODARONE HCL 100 ML IV ONE (15:02)
[2016-08-06] MEDS ORDERED: HEPARIN 50,000 UNIT/10 ML VIAL ONE (16:03)
--- NOTE | 2016-08-06 19:44 | GCON ---
[f rep st] CONSULTATION CARDIOLOGY CONSULTATION DATE OF CONSULTATION: 08/06/2016 REFERRING PHYSICIAN: Melida James MD REASON FOR CONSULTATION: 1. Atrial fibrillation with rapid ventricular response. 2. Chest pain. 3. Coronary artery disease. HISTORY: The patient is a 66-year-old male with a history of coronary artery disease, end-stage renal disease, hypertension, and anemia. He does not have routine access to outpatient dialysis and comes to the hospital for acute dialysis on an as-needed basis. He presented on August 04 with confusion, lightheadedness, and hyperkalemia. He had hemodialysis to correct these issues. I believe plans were for him to be discharged today. However, he developed atrial fibrillation with a rapid ventricular response. Heart rates were as high as the 130s. In conjunction with this, he had some chest discomfort with radiation into both arms. He was given a single dose of intravenous diltiazem as a bolus. This effectively reduced his heart rate and his chest pain subsided. He was not started on an intravenous diltiazem drip. His heart rate is once again, exceeding 100 beats per minute. PAST CARDIAC HISTORY AND TESTING: He has history of coronary artery disease as demonstrated on a cardiac catheterization in November of 2015. That study demonstrated moderate disease of a large first diagonal branch of the LAD, noncritical disease of the LAD proper and circumflex system, and a focal 80-90% lesion in the midportion of the RCA, and subtotal disease of the distal RCA between the posterior descending branch and posterolateral branch. Because of concern over his residual kidney function, PCI was deferred at that time in favor of continued medical therapy. He has not had ongoing problems with angina. An echocardiogram performed in 2015 demonstrated normal left ventricular systolic function with an ejection fraction of 77%. Diastolic dysfunction was noted. He had normal-appearing valvular structures with trace mitral and tricuspid regurgitation. There was no pericardial effusion. PAST MEDICAL HISTORY: Notable for his end-stage renal disease, coronary disease , hypertension, anemia of chronic kidney disease, recent episode of shingles, and a history of upper GI bleeding. MEDICATIONS: Please refer to the electronic chart. Relevant cardiac medications consist of metoprolol succinate 100 mg daily and atorvastatin 80 mg daily. The patient has also been on aspirin and Plavix in the past. However, aspirin was discontinued four months ago because of 2 episodes of gastrointestinal bleeding. ALLERGIES: No known drug allergies. SOCIAL HISTORY: Previous hospital reports have indicated that the patient is an undocumented alien. He has a son who lives locally. He is a former smoker and does not consume alcohol. REVIEW OF SYSTEMS: Apart from the chest discomfort mentioned earlier, a 10- point review was negative. PHYSICAL EXAMINATION: VITAL SIGNS: Heart rate 100 to 110 beats per minute with atrial fibrillation on the monitor. Blood pressure 131/68. GENERAL: This is a chronically ill-appearing male in no acute distress. He is alert and responds, although there is somewhat of a language barrier. HEAD AND NECK: No scleral icterus. Mucous membranes moist. Carotid pulses 2+ without bruits. There is no JVD. CHEST: Lung smith clear bilaterally. CARDIAC: Tachycardic. Irregularly irregular rhythm without a murmur or gallop. ABDOMEN : Soft, nondistended, nontender with normal bowel sounds. No masses. EXTREMITIES: 2+ pulses and no peripheral edema. LABORATORY STUDIES: Sodium 138, potassium 5.6, BUN 105, and creatinine 11.4. His TSH is normal at 0.789. CBC shows a white blood cell count of 5.1 with hemoglobin and hematocrit of 7.3 and 21.0. ECG: His admission ECG demonstrated sinus bradycardia at 52 beats per minute. There were no Q-waves or conduction system disturbances. No ST-T wave abnormalities suggestive of ischemia. His ECG earlier today demonstrated atrial fibrillation with a ventricular rate of 138 beats per minute. There was lateral ST-segment depression. IMPRESSION: This is a 66-year-old male with hypertension and underlying coronary artery disease who presents to this facility for dialysis as needed. Fortunately, he still produces some urine and is able to maintain his volume status. He was in preparation for discharge today when he developed atrial fibrillation with a rapid ventricular response. This is a new issue for him. His heart rate is improved after a single dose of intravenous diltiazem. Given his medical history, it would be vastly preferable for the patient to maintain sinus rhythm if possible. He is a very poor candidate for systemic anticoagulation for stroke prophylaxis. PLAN: We will start intravenous amiodarone in order to help control his rate and hopefully induce a return to sinus rhythm. We will plan to make oral amiodarone a part of his ongoing outpatient therapy. Given his bradycardia on presentation, I would decrease his standing Toprol dose. /[id number]/MODL MTDD
[2016-08-06] MEDS ORDERED: AMIODARONE HCL 540 MG in D5W 300 ML IV ONE (22:00)
[2016-08-07 05:33] LABS: HEMATOCRIT 23.6 % (40.0-51.0); HEMOGLOBIN 7.8 g/dL (13.7-17.5); MEAN CELL HEMOGLOBIN 29.4 pg (27.9-34.1); MEAN CELL HEMOGLOBIN CONCENTR. 33.1 g/dL (32.4-36.7); MEAN CELL VOLUME 89.1 fL (81.5-99.8); RED BLOOD CELL COUNT 2.65 10^6/uL (4.40-6.38); RED CELL DISTRIBUTION WIDTH 18.6 % (11.5-15.2)
[2016-08-07 05:49] LABS: ANION GAP 11 mEq/L (8-16); CALCIUM 7.6 mg/dL (8.5-10.4); CARBON DIOXIDE 30 mEq/l (22-31); CHLORIDE 96 mEq/L (97-110); GLOMERULAR FILTRATION RATE 6; GLUCOSE 107 mg/dL (70-100); POTASSIUM 5.5 mEq/L (3.5-5.2); SODIUM 137 mEq/L (134-144)
[2016-08-07 06:07] LABS: CREATININE 8.5 mg/dL (0.7-1.3)
[2016-08-07] MEDS: CALCIUM CARB W/VIT D 500 MG TAB PO SCH ×4 (06:16→17:10)
[2016-08-07] MEDS ORDERED: ERGOCALCIFEROL 50,000 I.UNIT CAP PO SCH (09:00)
--- NOTE | 2016-08-07 09:40 | SOAPPROG ---
JACQUELINE Progress Note Assessment/Plan: Assessment: 1. ESRD without benefits Going about a week between admissions. Stable HD today. Again tomorrow if in house. 2. Afib Now in sinus chivo on amio 3. Anemia s/p transfusion Plan: 08/07/16 09:39 Subjective: Feels better Objective: Vital Signs Temp Pulse Resp BP Pulse Ox 37.3 C 56 L 16 142/75 H 94 08/07/16 04:26 08/07/16 04:26 08/07/16 04:26 08/07/16 04:26 08/07/16 04:26 Laboratory Results 08/07/16 03:58 08/07/16 03:58 08/06/16 08/07/16 08/08/16 05:59 05:59 05:59 Intake Total 560 1519 Balance 560 1519 Physical Exam - Physical Exam General Appearance: no apparent distress Neck: other (cath site looks ok) Respiratory: lungs clear Cardiac/Chest: bradycardia Extremities: normal inspection Neuro/Psych: oriented x 3 ICD10 Worksheet Patient Problems: Problems Problem Status Diagnosed Renal failure Acute Shingles (herpes zoster) polyneuropathy Acute Abdominal pain Acute Acute renal failure Acute Acute upper GI bleed Acute Anemia Acute Anemia associated with acute blood loss Acute Diarrhea Acute End stage renal disease Acute Hyperkalemia Acute Hypertension Acute Hypocalcemia Acute Metabolic acidosis Acute
[2016-08-07] MEDS: CALCIUM CARBONATE 500 MG CHEWABLE TAB PO SCH ×3 (10:23→17:10)
[2016-08-07] MEDS: CALCITRIOL 0.25 MCG CAP PO SCH (10:24)
--- NOTE | 2016-08-07 11:42 | HOSPPROG ---
Hospitalist Progress Note Assessment/Plan: 66 yo M w/ESRD presenting with hyperkalemia and acidemia # Acute Atrial Fibrillation with RVR- pt Converted overnight to sinus rhythm- IV amiodarone load initiated overnight TELE (personally reviewed and interpreted) sinus rhythm in the 50s - TSH and troponin wnl yesterday oxygen saturations 94% on RA - complete amiodarone load- expect daily oral amiodarone after - cardiology following - goal of rhythm control to avoid difficult anticoagulation decision with history of serious GIB on plavix/asa # hyperkalemia - potassium 5.5 this morning prior to hemodialysis - HD today - will discuss with renal if HD tomorrow - follow daily BMP # ESRD - HD today - patient does not tolerate fluid removal well- renal following # Shingles- no new vesicular lesions- rash is crusting and decreasing in pain- had hallucinations on valacyclovir at home - continue low-dose gabapentin # anemia of chronic disease- h/h remain low but stable 01/27 - continue to monitor and tx for hgb < 7 # CAD- chest pain with AFib with RVR has resolved- troponin negative - cont beta bonifacio, plavix and statin # AGMA- 2/2 ESRD - improving on HD # htn- continue hydralazine/metoprolol # proph - SCD's # dispo: IP status, will need > 48 hours stay given high risk presenting issues I have discussed the case with the RN - completing amiodarone load - patient converted overnight Subjective: denies chest pain Objective: Vital Signs Temp Pulse Resp BP Pulse Ox 37.3 C 56 L 16 142/75 H 94 08/07/16 04:26 08/07/16 04:26 08/07/16 04:26 08/07/16 04:26 08/07/16 04:26 Laboratory Results 08/07/16 03:58 08/07/16 03:58 08/06/16 08/07/16 08/08/16 05:59 05:59 05:59 Intake Total 560 1519 Balance 560 1519 - Physical Exam Constitutional: chronically ill appearing Eyes: anicteric sclera Ears, Nose, Mouth, Throat: moist mucous membranes Cardiovascular: regular rate and rhythym, systolic murmur Respiratory: no respiratory distress Gastrointestinal: normoactive bowel sounds, soft, non-tender abdomen Genitourinary: no bladder fullness Skin: warm, normal color Musculoskeletal: No asymmetric calves Neurologic: AAOx3 Psychiatric: interacting appropriately, not anxious Lymph, Heme, Immunologic: no cervical LAD ICD10 Worksheet Patient Problems: Problems Problem Status Diagnosed Renal failure Acute Shingles (herpes zoster) polyneuropathy Acute Abdominal pain Acute Acute renal failure Acute Acute upper GI bleed Acute Anemia Acute Anemia associated with acute blood loss Acute Diarrhea Acute End stage renal disease Acute Hyperkalemia Acute Hypertension Acute Hypocalcemia Acute Metabolic acidosis Acute
[2016-08-07] MEDS: GABAPENTIN 100 MG CAP PO SCH (14:24)
[2016-08-07] MEDS: NEPHROVITE FOLIC ACID/VIT B&C 1 TAB PO SCH (14:24)
[2016-08-07] MEDS: ATORVASTATIN CALCIUM 40 MG TAB PO SCH (14:24)
[2016-08-07] MEDS: CLOPIDOGREL BISULFATE 75 MG TAB PO SCH (14:24)
[2016-08-07] MEDS: METOPROLOL SUCCINATE XR 50 MG TAB PO SCH (14:25)
[2016-08-08 05:11] LABS: HEMOGLOBIN 7.8 g/dL (13.7-17.5); MEAN CELL HEMOGLOBIN 29.7 pg (27.9-34.1); MEAN CELL HEMOGLOBIN CONCENTR. 33.9 g/dL (32.4-36.7); MEAN CELL VOLUME 87.5 fL (81.5-99.8); RED BLOOD CELL COUNT 2.63 10^6/uL (4.40-6.38); RED CELL DISTRIBUTION WIDTH 18.3 % (11.5-15.2)
[2016-08-08] MEDS: CALCIUM CARB W/VIT D 500 MG TAB PO SCH ×2 (05:13→14:53)
[2016-08-08 05:35] LABS: ANION GAP 12 mEq/L (8-16); CALCIUM 7.9 mg/dL (8.5-10.4); CARBON DIOXIDE 27 mEq/l (22-31); CHLORIDE 98 mEq/L (97-110); CREATININE 6.4 mg/dL (0.7-1.3); GLOMERULAR FILTRATION RATE 9; GLUCOSE 104 mg/dL (70-100); POTASSIUM 5.1 mEq/L (3.5-5.2); SODIUM 137 mEq/L (134-144)
--- NOTE | 2016-08-08 08:38 | SOAPPROG ---
SOAP Progress Note Assessment/Plan: Assessment: 1. ESRD. No outpatient benefits. Comes to hospital emergently about once per week. Had HD Sun-today each day, will have later today. No HD planned for tomorrow. 2. Fever. Has dialysis line. Check CXR, blood cultures. 3. AF/RVR. New for pt. Further eval per primary service. Trop negative. Would check echo if not ordered. 4. Zoster. No active lesions. Has small skin tear, no cellulitis. RN to apply bacitracin/bandage. Plan: 08/08/16 08:37 08/08/16 08:38 08/08/16 08:38 08/08/16 08:40 Subjective: Had dialysis yesterday. Developed AF/RVR over night, loaded on amiodarone. Spiked temp to 38.2 C this am. Has cough. Zoster sores on left side healing. Objective: Vital Signs Temp Pulse Resp BP Pulse Ox 37.4 C 63 16 174/85 H 93 08/08/16 08:00 08/08/16 08:00 08/08/16 08:00 08/08/16 08:00 08/08/16 08:00 Laboratory Results 08/08/16 03:37 08/08/16 03:37 08/07/16 08/08/16 08/09/16 05:59 05:59 05:59 Intake Total 1519 410 Balance 1519 410 Comfortable, thin male in bed RRR, no m/g/r. R tunneled cath exit site w/o e/e or tenderness over tunnel tract CTAB Abdom soft, nontender; crusted dermatomal rash on left flank; no vesicles. One area of denuded crust with superficial denudation No edema ICD10 Worksheet Patient Problems: Problems Problem Status Diagnosed Renal failure Acute Shingles (herpes zoster) polyneuropathy Acute Abdominal pain Acute Acute renal failure Acute Acute upper GI bleed Acute Anemia Acute Anemia associated with acute blood loss Acute Diarrhea Acute End stage renal disease Acute Hyperkalemia Acute Hypertension Acute Hypocalcemia Acute Metabolic acidosis Acute
[2016-08-08] MEDS ORDERED: AMIODARONE HCL 200 MG TAB PO SCH (09:00)
--- NOTE | 2016-08-08 09:26 | DX ---
PA and Lateral Chest 8:46 a.m. Indication: Cough and fever. Comparison: Portable chest dated July 26, 2016. Findings: Patchy left basilar airspace consolidation is worse since 2 weeks prior. The right lung rem ains clear. The right IJ tunnel dialysis catheter is well-positioned with the tip in the high right a trium. Heart size is normal. No pulmonary edema or pleural effusion. Impression: 1. Left basilar pneumonia versus atelectasis. 2. No fluid overload.
[2016-08-08] MEDS: NEPHROVITE FOLIC ACID/VIT B&C 1 TAB PO SCH (09:28)
[2016-08-08] MEDS: GABAPENTIN 100 MG CAP PO SCH (09:28)
[2016-08-08] MEDS: CLOPIDOGREL BISULFATE 75 MG TAB PO SCH (09:28)
[2016-08-08] MEDS: CALCITRIOL 0.25 MCG CAP PO SCH (09:28)
[2016-08-08] MEDS: METOPROLOL SUCCINATE XR 50 MG TAB PO SCH (09:28)
[2016-08-08] MEDS: ATORVASTATIN CALCIUM 40 MG TAB PO SCH (09:28)
[2016-08-08] MEDS: CALCIUM CARBONATE 500 MG CHEWABLE TAB PO SCH ×2 (09:29→14:53)
[2016-08-08] MEDS ORDERED: HEPARIN 50,000 UNIT/10 ML VIAL ONE (12:00)
--- NOTE | 2016-08-08 12:12 | PDDCSUM ---
Discharge Summary Discharge Summary: Dates of service: 08/04-08/08/16 Consultations: renal, cardiology Procedures performed: urgent HD Hospital course by problem: # Acute Atrial Fibrillation with RVR- converted with amio gtt and will dc on oral amio. TSH/trop wnl. Cardiology evaluated, echo in 11/2015 w/DD and preserved EF. No plan for AC given hx if GIB previously and difficulty with AC # ESRD: s/p HD, does not have access to HD as an OP, appreciate renal following # fever: x 1 [address] cath in place but no localizing sxs, blood cultures sent and will need f/u as an OP # hyperkalemia - in setting of ESRD, resolved s/p HD # Shingles- no new vesicular lesions- rash is crusting and decreasing in pain- had hallucinations on valacyclovir at home, continue on low dose gabapentin # anemia of chronic disease-2/2 chronic renal disease, stable # CAD- cont beta bonifacio, plavix and statin # AGMA- 2/2 ESRD - improving on HD # htn- continue hydralazine/metoprolol Dispo: dc home, will return when sxs indicate he is requiring HD again, return precautions stressed with patient Items pending at dc: blood cultures > 35 min spent in care of this patient, more than half in face to face care and coordination of care
[2016-08-08 12:28] VITALS: BP 147/79; PULSE 68; RESP 14; TEMP 98.7; O2SAT 98
== END 2016-08-08 15:30 | disposition home or self-care (01) | DRG 640 ==
LOC: F2W 15:15 → OBSVTOIN 08-05 14:54
PROVIDERS: ADMIT Internal Medicine; ATTEND Internal Medicine
PROC: 5A1D60Z (ICD-10-PCS; principal; 2016-08-05)
DX: E87.5 Hyperkalemia (principal); N18.6 End stage renal disease; I12.0 Hypertensive chronic kidney disease with stage 5 chronic kidney disease or end stage renal disease; I48.91 Unspecified atrial fibrillation; B02.9 Zoster without complications; E78.5 Hyperlipidemia, unspecified; I25.10 Atherosclerotic heart disease of native coronary artery without angina pectoris; D63.1 Anemia in chronic kidney disease; Z91.15 Patient's noncompliance with renal dialysis; M10.9 Gout, unspecified; Z87.891 Personal history of nicotine dependence
CPT/HCPCS: 96374; G0378; J0282; J0610; J1644; J1815; J2405

== ENCOUNTER 2016-08-20 17:51 | Inpatient (IN) | payer MEDICAID ==
--- NOTE | 2016-08-20 19:13 | EDPHY ---
H & P Time Seen by Provider: 08/20/16 19:13 HPI/ROS: CHIEF COMPLAINT: I am tired HISTORY OF PRESENT ILLNESS: This 66-year-old man has a history of end-stage renal disease and no outpatient access to dialysis. He was last admitted August 04 of this year for dialysis a presents today with fatigue decreased appetite and nausea. Symptoms moderate. Not associated with shortness of breath or chest pain. Not better worse with anything. REVIEW OF SYSTEMS: Eye: no change in vision ENT: no sore throat Cardiac: no chest pain or syncope Pulmonary: no cough or SOB Abdomen: no vomiting, diarrhea, abdominal pain Musculoskeletal: no back pain Skin: Left flank zoster is improving, he stops his medications a week ago because they were giving him bad dreams Neuro: no headache Constitutional: no fever : no urinary symptoms A comprehensive 10 point review of systems is otherwise negative aside from elements mentioned in the history of present illness. PAST MEDICAL HISTORY: Admission history and physical by Dr. Rich dated 2016 personally reviewed by myself includes coronary disease on Plavix, history of upper GI bleed, hypertension, anemia, shingles, end-stage renal disease. Social history: Former smoker no allergies. General Appearance: Alert and conversant, cooperative. Eyes: No scleral icterus. ENT, Mouth: Normal mucous membranes. Respiratory: Normal respiratory effort, breath sounds equal, lungs are clear to auscultation. Cardiovascular: Regular rate and rhythm. Catheter site right subclavian is clean dry and intact. Gastrointestinal: Abdomen is soft and non tender. Neurological: Alert and oriented x3. Normally conversant. Face symmetric, normal movement and sensation in all extremities. Skin: Healing shingles rash on the left flank without evidence of redness or warmth or superinfection. Musculoskeletal: No peripheral edema and no joint swelling. Psychiatric: Not agitated. Emergency Department course/MDM: I-STAT chemistry to look and potassium and EKG performed. 1947: I-STAT potassium is 7.9 with creatinine greater than 20. Hematocrit 21. EKG shows sinus rhythm with QRS duration 77. Calcium gluconate 10 mL is IV, insulin 10 units IV with 1 amp of IV D50, IV sodium bicarbonate 50 mEq. Kept on a health information manager and admission for dialysis. Smoking Status: Former smoker Constitutional: Initial Vital Signs Temperature (C) 36.8 C 08/20/16 17:56 Heart Rate 63 02/13/17 17:56 Respiratory Rate 16 08/20/16 17:56 Blood Pressure 192/72 H 08/20/16 17:56 O2 Sat (%) 97 08/20/16 17:56 O2 Delivery Mode Room Air Allergies/Adverse Reactions: No Known Allergies Allergy (Verified 08/20/16 17:59) Home Medications: Medication Instructions Recorded Ergocalciferol [Vitamin D2 (*)] 50,000 unit PO TU 11/10/15 Calcitriol [Calcitriol (*)] 0.25 mcg PO DAILY #30 cap 12/20/15 Calcium Carbonate [Tums 500MG (*)] 1,000 mg PO TIDMEAL #0 tab.chew 03/30/16 Atorvastatin Calcium [Lipitor 40 80 mg PO DAILY 07/02/16 mg (*)] hydrALAZINE [Apresoline 50 mg (*)] 25 mg PO TIDMEAL 07/02/16 Clopidogrel Bisulfate [Plavix (*)] 75 mg PO DAILY #30 tab 07/15/16 Metoprolol Succinate Xr [Toprol Xl 100 mg PO DAILY #30 tab.sr 07/15/16 100 mg (*)] Calcium Carbonate/Vitamin D3 1 each PO QID 08/04/16 [CALCIUM 600 + VIT D TABLET] Vit B Cmplx 3/FA/Vit C/Biotin 1 each PO DAILY 08/04/16 [Ev-Peyton Rx Tablet] Gabapentin [Neurontin 100 MG (*)] 100 mg PO DAILY #30 cap 08/06/16 Amiodarone HCl [Pacerone (*)] 200 mg PO DAILY #30 tab 08/08/16 Medical Decision Making - Diagnostics EKG Interpretation: 12-lead EKG interpreted by me; official reading is in trace master. My interpretation is sinus rhythm with QRS of 77, slightly peaked T-waves. Differential Diagnosis: Differential for weakness considered including but not limited to anemia, renal failure, hyperkalemia, CHF. Consult/Admit Bed Type: [facility] 1951 Critical Care Time: Critical care time spent by me, Dr. Teran, exclusively with the care of this patient was 30 minutes, exclusive of PA or CMA time and exclusive of separate procedures. The organ system at risk was metabolic and I ordered IV glucose and insulin, IV calcium, IV sodium bicarbonate, discussion with physician hospitalist and costing analyst to stabilize the patient and prevent worsening of the patient's condition. - Data Points Laboratory Results: Laboratory Results 08/20/16 19:35 08/20/16 19:35 08/20/16 08/20/16 19:35 19:29 WBC 5.58 10^3/uL (3.80-9.50) RBC 2.32 L 10^6/uL (4.40-6.38) Hgb 7.0 L g/dL (13.7-17.5) POC Hgb 7.1 L gm/dL (14.5-17.3) Hct 21.3 L % (40.0-51.0) POC Hct 21 L % (42.8-50.6) MCV 91.8 fL (81.5-99.8) MCH 30.2 pg (27.9-34.1) MCHC 32.9 g/dL (32.4-36.7) RDW 18.7 H % (11.5-15.2) Plt Count 113 L 10^3/uL (150-400) MPV 10.2 fL (8.7-11.7) Neut % (Auto) 71.2 % (39.3-74.2) Lymph % (Auto) 17.9 % (15.0-45.0) [place] % (Auto) 4.1 L % (4.5-13.0) Eos % (Auto) 5.6 % (0.6-7.6) Baso % (Auto) 0.7 % (0.3-1.7) Nucleat RBC Rel Count 0.0 % (0.0-0.2) Absolute Neuts (auto) 3.97 10^3/uL (1.70-6.50) Absolute Lymphs (auto) 1.00 10^3/uL (1.00-3.00) Absolute Monos (auto) 0.23 L 10^3/uL (0.30-0.80) Absolute Eos (auto) 0.31 10^3/uL (0.03-0.40) Absolute Basos (auto) 0.04 10^3/uL (0.02-0.10) Absolute Nucleated RBC 0.00 10^3/uL (0-0.01) Immature Gran % 0.5 % (0.0-1.1) Immature Gran # 0.03 10^3/uL (0.00-0.10) POC Sodium 141 mEq/L (134-144) Sodium 146 H mEq/L (134-144) POC Potassium 7.9 H* mEq/L (3.3-5.0) Potassium 8.2 H* mEq/L (3.5-5.2) POC Chloride 115 H mEq/L (96-108) Chloride 110 mEq/L (97-110) Carbon Dioxide 12 L mEq/l (22-31) Anion Gap 24 H mEq/L (8-16) POC BUN > 140 H* mg/dL (7-23) BUN 196 H* mg/dL (7-23) Creatinine 21.0 H* mg/dL (0.7-1.3) POC Creatinine > 20.0 H* mg/dL (0.8-1.5) Estimated GFR 2 Glucose 78 mg/dL (70-100) POC Glucose 77 mg/dL (70-100) Calcium 8.4 L mg/dL (8.5-10.4) Total Bilirubin 0.6 mg/dL (0.1-1.4) AST 19 IU/L (17-59) ALT 34 IU/L (21-72) Alkaline Phosphatase 72 IU/L (38-126) Total Protein 7.1 g/dL (6.3-8.2) Albumin 4.8 g/dL (3.5-5.0) Medications Given: Discontinued Medications Dextrose (Dextrose 50% Syringe) 25 gm IVP EDNOW ONE Stop: 08/20/16 19:49 Last Admin: 08/20/16 20:12 Dose: 25 gm Calcium Gluconate (Calcium Gluconate 1 Gm (Premix)) 50 mls @ 100 mls/hr IV EDNOW ONE Stop: 08/20/16 20:17 Last Admin: 08/20/16 20:20 Dose: 50 mls Mannitol (Mannitol 20% (Premix)) 50 mls @ 0 mls/hr IV ONCE ONE PRN Reason: As Directed Stop: 08/20/16 23:01 Last Admin: 08/20/16 23:04 Dose: 50 mls Insulin Human Regular (Humulin R) 10 unit IVP EDNOW ONE Stop: 08/20/16 19:49 Last Admin: 08/20/16 20:10 Dose: 10 unit Sodium Bicarbonate (Sodium Bicarbonate) 50 meq IVP EDNOW ONE Stop: 08/20/16 19:49 Last Admin: 08/20/16 20:15 Dose: 50 meq Point of Care Test Results: 08/20/16 19:29 POC Sodium 141 POC Potassium 7.9 H* POC Chloride 115 H POC BUN > 140 H* POC Creatinine > 20.0 H* POC Glucose 77 Departure - Departure Disposition: [facility]patient Acute Clinical Impression: Renal failure, Hyperkalemia, Anemia Condition: Serious
--- NOTE | 2016-08-20 19:46 | CPEKG ---
Heart Rate: 51 RR Interval: 1176 P-R Interval: 181 QRSD Interval: 128 QT Interval: 528 QTC Interval: 487 P [place]: 82 QRS [place]: 77 T Wave [place]: 72 EKG Severity - ABNORMAL ECG - EKG Impression: SINUS RHYTHM EKG Impression: NONSPECIFIC INTRAVENTRICULAR CONDUCTION DELAY Electronically Signed By: Esteban Teran 20-Aug-2016 20:52:49
[2016-08-20 19:48] LABS: % IMMATURE GRANULYOCYTES 0.5 % (0.0-1.1); ABSOLUTE IMMATURE GRANULOCYTES 0.03 10^3/uL (0.00-0.10); ADD DIFF? NO; ADD MORPH? NO; ADD SCAN? NO; ATYPICAL LYMPHOCYTE FLAG 0 (0-99); FRAGMENT RBC FLAG 0 (0-99); HEMATOCRIT 21.3 % (40.0-51.0); LEFT SHIFT FLG 0 (0-99); LIPEMIA HEMOLYSIS FLAG 80 (0-99); MEAN CELL HEMOGLOBIN 30.2 pg (27.9-34.1); MEAN CELL HEMOGLOBIN CONCENTR. 32.9 g/dL (32.4-36.7); MEAN CELL VOLUME 91.8 fL (81.5-99.8); MEAN PLATELET VOLUME 10.2 fL (8.7-11.7); PLATELET CLUMPS FLAG 0 (0-99); PLATELET COUNT 113 10^3/uL (150-400); RED BLOOD CELL COUNT 2.32 10^6/uL (4.40-6.38); RED CELL DISTRIBUTION WIDTH 18.7 % (11.5-15.2)
[2016-08-20] MEDS ORDERED: SODIUM BICARBONATE 50 MEQ/50 ML SYR IVP ONE (19:48)
[2016-08-20] MEDS ORDERED: D50W 25 GM/50 ML SYR IVP ONE (19:48)
[2016-08-20] MEDS ORDERED: INSULIN REGULAR HUMAN 100 UNIT/ML IVP ONE (19:48)
[2016-08-20] MEDS ORDERED: CALCIUM GLUCONATE 50 ML IV ONE (19:48)
[2016-08-20] MEDS ORDERED: NA BICARBONATE 50 MEQ/50 ML VIAL ONE (19:53)
[2016-08-20 20:07] LABS: ALANINE AMINOTRANSFERASE 34 IU/L (21-72); ALBUMIN 4.8 g/dL (3.5-5.0); ALKALINE PHOSPHATASE 72 IU/L (38-126); ANION GAP 24 mEq/L (8-16); ASPARTATE AMINOTRANSFERASE 19 IU/L (17-59); BILIRUBIN,TOTAL 0.6 mg/dL (0.1-1.4); CALCIUM 8.4 mg/dL (8.5-10.4); CARBON DIOXIDE 12 mEq/l (22-31); CHLORIDE 110 mEq/L (97-110); GLUCOSE 78 mg/dL (70-100); SODIUM 146 mEq/L (134-144); TOTAL PROTEIN 7.1 g/dL (6.3-8.2)
[2016-08-20 20:23] LABS: GLOMERULAR FILTRATION RATE 2
[2016-08-20 20:24] LABS: POTASSIUM 8.2 mEq/L (3.5-5.2)
[2016-08-20] MEDS ORDERED: SODIUM BICARBONATE 50 MEQ in 1/2 NS 1,000 ML IV SCH (21:00)
[2016-08-20] MEDS ORDERED: ONDANSETRON DISINTEGRATING 4 MG TAB PO PRN (21:46)
[2016-08-20] MEDS ORDERED: ACETAMINOPHEN 325 MG TAB PO PRN (21:46)
[2016-08-20] MEDS ORDERED: ONDANSETRON 4 MG/2 ML VIAL IVP PRN (21:46)
[2016-08-20] MEDS ORDERED: MANNITOL 20% IV ONE (23:00)
--- NOTE | 2016-08-20 23:11 | GHP ---
[f rep st] HISTORY AND PHYSICAL DATE OF ADMISSION: 08/20/2016 CHIEF COMPLAINT: 1. Hyperkalemia. 2. Symptomatic uremia. HPI: The patient is a 66-year-old male, with no access to outpatient hemodialysis, presenting with fatigue, nausea, vomiting that began today. He also reported mild abdominal swelling. Has had a decreased appetite. Denies any itching or bleeding. No headache. His last hemodialysis was 12 days ago. He complains of tingling, burning pain in his back, with a recent zoster infection. Denies cough, chest pain, or shortness of breath. REVIEW OF SYSTEMS: I completed a 10-point review of systems. PAST MEDICAL HISTORY: 1. End-stage renal disease, without outpatient access to dialysis. 2. CAD. 3. Recent atrial fibrillation with RVR, August 06, 2016. 4. History of upper GI bleed. 5. Hypertension. 6. Anemia of chronic disease. 7. Shingles. 8. Severe protein caloric malnutrition SURGICAL HISTORY: None. SOCIAL HISTORY: Lives alone in [place]. No tobacco, alcohol, or illicits. FAMILY HISTORY: Mother with CVA. No diabetes. ALLERGIES: None. HOME MEDICATIONS: 1. Hydralazine 25 mg t.i.d. 2. Nephro-Peyton. 3. Toprol 100 mg daily. 4. Gabapentin 100 mg daily. 5. Ergocalciferol Tuesdays. 6. Plavix 75 mg daily. 7. Tums. 8. Calcitriol 0.25 mcg daily. 9. Atorvastatin 80 daily. 10. Amiodarone 200 mg daily. PHYSICAL EXAM: VITAL SIGNS: Temperature 36.8, blood pressure 155/65, heart rate 60s, respirations 16, 98% on room air. GENERAL: Patient appears tired, is lying in bed in no acute distress. HEENT: PERRLA. EOMI. Oropharynx clear. CV: Regular rate and rhythm. No murmurs, gallops, or rubs. LUNGS: Clear to auscultation bilaterally. No crackles. ABDOMEN: Soft, nontender, nondistended. Positive bowel sounds. : No Singh. No suprapubic tenderness. MUSCULOSKELETAL: Tunneled dialysis catheter, right upper chest. No evidence of erythema or purulence. SKIN: Healing zoster lesions, left flank. No purulence. NEURO: 2 through 12 intact. PSYCH: Alert and oriented x3. LABS: WBC 5.5, hemoglobin 7, hematocrit 21, platelets 113 (baseline is 1 teens to 140s). Sodium 146, potassium 8.2, chloride 110, carbon dioxide 12, anion gap 24, BUN 196, creatinine 21, calcium 8.4. LFTs within normal. DIAGNOSTIC DATA: EKG personally reviewed by me. Intraventricular conduction delay. There is mild widening of QRS. QT was 528. Peaked Ts, anterior leads, similar to previous. ASSESSMENT AND PLAN: 1. Severe life-threatening hyperkalemia: Potassium elevated at 5.2. EKG with some interventricular conduction delay with mild QRS widening. The patient was treated in the emergency room with calcium, insulin, and bicarb. Renal has been contacted and will plan for emergent dialysis tonight. We will continue telemetry. 2. Symptomatic uremia: BUN is elevated at 196: Plan for hemodialysis per Renal. 3. Metabolic anion gap acidosis secondary to end-stage renal disease. Again, hemodialysis. 4. End-stage renal disease: The patient does not have access to outpatient hemodialysis. He receives emergent dialysis here. Will continue Nephro-Peyton. 5. Hypocalcemia: Continue calcitriol and Tums. 6. Vitamin D deficiency. Continue ergocalciferol weekly. 7. History of coronary artery disease: The patient is being medically managed. Will continue Plavix, statin, and beta-bonifacio. 8. Recent atrial fibrillation with rapid ventricular response: This was the end of July. The patient was seen by Cardiology at that time. He was started on amiodarone in addition to his beta-bonifacio. 9. Recent shingles: The patient with some nerve pain. Will continue Neurontin renally dosed. 10. Anemia of chronic disease: Patient denies any bleeding currently. H and H are 7 and 21. Will repeat this. This may be low in setting of hypervolemia. Patient is typed and screened for possible transfusion. 11. Diet: Renal. 12. DVT prophylaxis: SCDs. 13. Severe protein caloric malnutrition: nutrition consult. DISPOSITION: Patient warrants inpatient admission given severe life- threatening hyperkalemia, warranting emergent dialysis, cardiac monitoring. /[id number]/MODL MTDD
[2016-08-21] MEDS ORDERED: HEPARIN 50,000 UNIT/10 ML VIAL ONE ×2 (00:30→19:00)
--- NOTE | 2016-08-21 01:27 | GCON ---
[f rep st] CONSULTATION NEPHROLOGY CONSULTATION REASON FOR CONSULTATION: End-stage renal disease, hyperkalemia, severe azotemia. HISTORY OF PRESENT ILLNESS: The patient is well known to our service. He has ESRD, but unfortunatel y, does not have outpatient dialysis benefits. He last dialyzed here approximately 2 weeks ago. Dur ing that visit, he did have atrial fibrillation, and he also received a transfusion. The patient presents with lower extremity weakness. He also notes having 72 hours of some nausea and diarrhea. He has had watery stools. This is a new development for him. He, otherwise, denies havi ng any fever, chills or abdominal pain. He is not having chest pain or shortness of breath. His pot assium is 8.2. His QRS appears normal, although he is in a sinus bradycardia. He has received tempo rizing potassium lowering treatments in the emergency room. Related to these issues, we are asked by Dr. Teran of the emergency room to assist the patient's renal diagnosis and management. PAST MEDICAL HISTORY: 1. End-stage renal disease. 2. Coronary artery disease, status post cardiac catheterization but without intervention. 3. History of upper GI bleeding. 4. History of zoster. 5. Duodenal stricture. 6. Esophagitis. PAST SURGICAL HISTORY: Tunneled dialysis catheter. HOME MEDICATIONS: Hydralazine 25 mg t.i.d., Plavix 75 mg daily, vitamin D 50,000 units weekly, Tums 1 g t.i.d. with meals, metoprolol succinate 100 mg daily, gabapentin 100 mg daily, calcitriol 0.25 mc g daily, atorvastatin 80 mg daily, amiodarone 200 mg daily. FAMILY HISTORY: Noncontributory. SOCIAL HISTORY: The patient lives with his son. He does not smoke cigarettes or drink alcohol. REVIEW OF SYSTEMS: His review is negative with the exception of some abdominal discomfort, nausea an d diarrhea. PHYSICAL EXAM: GENERAL: The patient is alert and oriented. VITAL SIGNS: Temperature afebrile, pul se 61, blood pressure 154/79. EYES: Sclerae clear. OROPHARYNX: False plates noted, clear. NECK: Jugular venous distention is present. His tunneled dialysis catheter exit site is clean. LUNGS: D iminished in the breath sounds, but otherwise clear. CARDIOVASCULAR: Regular rate and rhythm with a systolic murmur. ABDOMEN: Nontender. No organomegaly. AND RECTAL: Deferred. EXTREMITIES: 1+ ankle edema is noted. INTEGUMENT: Generally clear. NEURO: No focal findings. LABORATORY STUDIES: White count 5.58, hematocrit 21.3 and platelets 113. Sodium 146, potassium 8.2, BUN 196, creatinine 21. IMPRESSION AND PLAN: 1. Uremia and hyperkalemia. The patient has received some potassium lowering medications. We will also start a sodium bicarbonate containing IV, until dialysis will be started. Dialysis should be st arted within the next 1-2 hours. His QRS complex appear stable. He will be dialyzed tonight and aga in tomorrow. 2. Anemia. The hemoglobin will be followed, and transfusion will be considered. 3. Diarrhea. If this persists, stool studies will be sent. 4. Hypertension. This should improve with dialysis. 5. Atrial fibrillation. The patient appears to be in normal sinus rhythm at the present time. Thank you for allowing us participate in this patient's care. We will continue to follow closely hans peres. /[id number]/MODL
[2016-08-21] MEDS ORDERED: NON-FORMULARY NEW DRUG (Calcium Carbonate/Vitamin D3 [Calcium 600 + Vit D Tablet] 1 EACH) PO SCH (06:00)
[2016-08-21 06:19] LABS: HEMATOCRIT 18.2 % (40.0-51.0); MEAN CELL HEMOGLOBIN 30.5 pg (27.9-34.1); MEAN CELL HEMOGLOBIN CONCENTR. 34.1 g/dL (32.4-36.7); MEAN CELL VOLUME 89.7 fL (81.5-99.8); RED BLOOD CELL COUNT 2.03 10^6/uL (4.40-6.38); RED CELL DISTRIBUTION WIDTH 18.6 % (11.5-15.2)
[2016-08-21 06:55] LABS: ALBUMIN 3.9 g/dL (3.5-5.0); ANION GAP 20 mEq/L (8-16); CALCIUM 8.6 mg/dL (8.5-10.4); CARBON DIOXIDE 17 mEq/l (22-31); CHLORIDE 107 mEq/L (97-110); CREATININE 13.4 mg/dL (0.7-1.3); GLOMERULAR FILTRATION RATE 4; GLUCOSE 83 mg/dL (70-100); POTASSIUM 5.4 mEq/L (3.5-5.2); SODIUM 144 mEq/L (134-144)
[2016-08-21 07:07] LABS: HEMOGLOBIN 6.2 g/dL (13.7-17.5)
[2016-08-21] MEDS: CALCIUM CARB W/VIT D 500 MG TAB PO SCH ×5 (07:33→19:53)
[2016-08-21] MEDS: hydrALAZINE 25 MG TAB PO SCH ×3 (08:24→17:52)
[2016-08-21] MEDS: NEPHROVITE FOLIC ACID/VIT B&C 1 TAB PO SCH (08:24)
[2016-08-21] MEDS: CALCITRIOL 0.25 MCG CAP PO SCH (08:24)
[2016-08-21] MEDS: CLOPIDOGREL BISULFATE 75 MG TAB PO SCH (08:25)
[2016-08-21] MEDS: AMIODARONE HCL 200 MG TAB PO SCH (08:25)
[2016-08-21] MEDS: METOPROLOL SUCCINATE XR 100 MG TAB PO SCH (08:25)
[2016-08-21] MEDS: GABAPENTIN 100 MG CAP PO SCH (08:25)
[2016-08-21] MEDS: ATORVASTATIN CALCIUM 40 MG TAB PO SCH (08:25)
[2016-08-21] MEDS: CALCIUM CARBONATE 500 MG CHEWABLE TAB PO SCH ×3 (08:25→17:53)
[2016-08-21] MEDS ORDERED: BIOTIN PO SCH (09:00)
[2016-08-21] MEDS ORDERED: VIT B CMPLX PO SCH (09:00)
[2016-08-21] MEDS ORDERED: [UNRECOGNIZED DRUG - OTHER] PO SCH (09:00)
[2016-08-21] MEDS ORDERED: ERGOCALCIFEROL 50,000 I.UNIT CAP PO SCH ×2 (09:00→21:48)
--- NOTE | 2016-08-21 09:04 | HOSPPROG ---
Hospitalist Progress Note Assessment/Plan: DIAGNOSIS: # severe hyperkalemia with EKG changes # Acute uremia symptomatic # End-stage renal disease requiring dialysis but without availability of outpatient dialysis PLANS: -will require dialysis again today and possibly tomorrow -Continue to monitor electrolytes and EKG -could go out of ICU today SUBJECTIVE: Feels much better today Has not tried to eat but so far no vomiting No chest pain or shortness of breath or abdominal pain OBJECTIVE Vitals reviewed: Some hypertension otherwise stable knock out hand: Sinus rhythm with improvement in conduction changes Exam: alert oriented skin warm dry color ok resps not labored lungs clear BSs heart regular abd soft nondistended nontender, bowel sounds present limbs warm, no edema iv site ok Objective: Vital Signs Temp Pulse Resp BP Pulse Ox 36.8 C 61 11 L 152/76 H 100 08/21/16 07:48 08/21/16 07:48 08/21/16 07:48 08/21/16 07:48 08/21/16 07:48 Laboratory Results 08/21/16 05:45 08/21/16 05:45 08/20/16 08/21/16 08/22/16 06:59 06:59 06:59 Output Total 1000 Balance -1000 ICD10 Worksheet Patient Problems: Problems Problem Status Onset Anemia Acute Hyperkalemia Acute Renal failure Acute Abdominal pain Acute Acute renal failure Acute Acute upper GI bleed Acute Anemia associated with acute blood loss Acute Diarrhea Acute End stage renal disease Acute Hypertension Acute Hypocalcemia Acute Metabolic acidosis Acute Shingles (herpes zoster) polyneuropathy Acute
--- NOTE | 2016-08-21 09:08 | SOAPPROG ---
JACQUELINE Progress Note Assessment/Plan: Assessment:Plan: ESRD-s/p Hd last night -daily dialysis while he is an inpatient -no outpatient benefits for dialysis Access-stable 08/21/16 09:07 Subjective: still feels pretty bad Objective: Vital Signs Temp Pulse Resp BP Pulse Ox 36.8 C 61 11 L 152/76 H 100 08/21/16 07:48 08/21/16 07:48 08/21/16 07:48 08/21/16 07:48 08/21/16 07:48 Laboratory Results 08/21/16 05:45 08/21/16 05:45 08/20/16 08/21/16 08/22/16 05:59 05:59 05:59 Output Total 1000 Balance -1000 Physical Exam - Physical Exam General Appearance: alert, no apparent distress EENT: normal ENT inspection Neck: normal inspection Respiratory: lungs clear, normal breath sounds, No respiratory distress Cardiac/Chest: regular rate, rhythm Abdomen: normal bowel sounds, non-tender Extremities: swelling (trace) ICD10 Worksheet Patient Problems: Problems Problem Status Onset Anemia Acute Hyperkalemia Acute Renal failure Acute Abdominal pain Acute Acute renal failure Acute Acute upper GI bleed Acute Anemia associated with acute blood loss Acute Diarrhea Acute End stage renal disease Acute Hypertension Acute Hypocalcemia Acute Metabolic acidosis Acute Shingles (herpes zoster) polyneuropathy Acute
--- NOTE | 2016-08-21 13:34 | CPEKG ---
Heart Rate: 55 RR Interval: 1091 P-R Interval: 168 QRSD Interval: 98 QT Interval: 488 QTC Interval: 467 P [place]: 61 QRS [place]: 74 T Wave [place]: 78 EKG Severity - NORMAL ECG - EKG Impression: SINUS RHYTHM Electronically Signed By: Idris Velasco 22-Aug-2016 08:35:30
[2016-08-22] MEDS: hydrALAZINE 20 MG/ML VIAL IVP PRN ×2 (00:04→16:22)
[2016-08-22] MEDS: CALCIUM CARB W/VIT D 500 MG TAB PO SCH ×4 (05:05→17:14)
[2016-08-22 05:35] LABS: ALBUMIN 3.7 g/dL (3.5-5.0); ANION GAP 14 mEq/L (8-16); CALCIUM 8.6 mg/dL (8.5-10.4); CARBON DIOXIDE 18 mEq/l (22-31); CHLORIDE 105 mEq/L (97-110); GLOMERULAR FILTRATION RATE 5; GLUCOSE 97 mg/dL (70-100); POTASSIUM 5.1 mEq/L (3.5-5.2); SODIUM 137 mEq/L (134-144)
[2016-08-22 05:37] LABS: CREATININE 10.1 mg/dL (0.7-1.3)
--- NOTE | 2016-08-22 07:30 | SOAPPROG ---
SOAP Progress Note Assessment/Plan: Assessment: 1. Hyperkalemia. HD 3rd consecutive day today. K much improved. Still with mild bradycardia, see below. 2. ESRD. No outpatient benefits. Dialyzed for emergent hyperkalemia. Running again today. Can likely discharge after dialysis today if medical issues are stable. Obtain weekly labs with PCP, return for emergent indications. 3. Anemia. S/p PRBC tx yesterday. Should receive another on dialysis today. Give procrit dose. 4. Atrial fibrillation. Seems in NSR. Mild bradycardia, possibly d/t BB and exacerbated by dialysis dysequilibrium yesterday. Plan: 08/22/16 07:27 08/22/16 07:31 Subjective: Patient seen and examined on dialysis. Became diaphoretic yesterday during dialysis, severe headache. Better now. No chest pains. Objective: Vital Signs Temp Pulse Resp BP Pulse Ox 36.4 C 54 L 12 145/64 H 100 08/21/16 20:00 08/22/16 04:00 08/22/16 04:00 08/22/16 04:00 08/22/16 04:00 Laboratory Results 08/21/16 05:45 08/22/16 05:05 08/21/16 08/22/16 08/23/16 05:59 05:59 05:59 Intake Total 800 Output Total 1000 Balance -1000 800 Comfortable, on dialysis, NAD Qb 190 RRR, no m/g/r CTAB Abdom soft, nt No LE edema ICD10 Worksheet Patient Problems: Problems Problem Status Onset Anemia Acute Hyperkalemia Acute Renal failure Acute Abdominal pain Acute Acute renal failure Acute Acute upper GI bleed Acute Anemia associated with acute blood loss Acute Diarrhea Acute End stage renal disease Acute Hypertension Acute Hypocalcemia Acute Metabolic acidosis Acute Shingles (herpes zoster) polyneuropathy Acute
[2016-08-22] MEDS ORDERED: EPOETIN ALFA 10,000 UNIT/ML VIAL SC SCH (08:00)
[2016-08-22 10:39] LABS: HEMATOCRIT 29.2 % (40.0-51.0); HEMOGLOBIN 10.4 g/dL (13.7-17.5)
[2016-08-22] MEDS: CALCIUM CARBONATE 500 MG CHEWABLE TAB PO SCH ×3 (10:56→18:24)
[2016-08-22] MEDS: NEPHROVITE FOLIC ACID/VIT B&C 1 TAB PO SCH (10:57)
[2016-08-22] MEDS: hydrALAZINE 25 MG TAB PO SCH ×3 (10:57→18:24)
[2016-08-22] MEDS: ATORVASTATIN CALCIUM 40 MG TAB PO SCH (10:57)
[2016-08-22] MEDS: CLOPIDOGREL BISULFATE 75 MG TAB PO SCH (10:57)
[2016-08-22] MEDS: CALCITRIOL 0.25 MCG CAP PO SCH (10:57)
[2016-08-22] MEDS: AMIODARONE HCL 200 MG TAB PO SCH (10:57)
[2016-08-22] MEDS: GABAPENTIN 100 MG CAP PO SCH (10:58)
[2016-08-22] MEDS: METOPROLOL SUCCINATE XR 100 MG TAB PO SCH (10:58)
[2016-08-22 11:35] VITALS: TEMP 98.1; O2SAT 99
[2016-08-22 14:13] LABS: HEPATITIS Bs Ab QUANT <5.0 mIU/mL
[2016-08-22 16:19] VITALS: PULSE 52; RESP 16
[2016-08-22 18:24] VITALS: BP 136/64
[2016-08-22] MEDS ORDERED: HEPARIN 50,000 UNIT/10 ML VIAL ONE (19:35)
--- NOTE | 2016-08-22 23:21 | GDS ---
[f rep st] DISCHARGE SUMMARY DIAGNOSES: 1. Acute severe hyperkalemia, with electrocardiogram changes. 2. End-stage renal disease with dialysis. 3. Acute uremia. 4. Symptomatic bradycardia. CONSULTATIONS: Garry Negro MD, of Nephrology. PROCEDURES: Hemodialysis and transfusion of red blood cells. HOSPITAL COURSE: The patient is a 66-year-old man with end-stage renal disease who because of his s ocial situation does not have any insurance available, and is unable to arrange to get dialysis in t outpatient setting. He comes in intermittently when he is becoming uremic. At this point, he ca me in with nausea, loss of appetite, weakness, and was found to have a potassium of 8.2, with QRS wi dening on EKG. He was emergently dialyzed after emergency treatment for hyperkalemia in the ER. Th is resolved his potassium issues, and EKG changes quickly enough, and there were no arrhythmias or o ther cardiac complications initially. On the second go-around of dialysis, on his second day, the p atient did develop some bradycardia, which was symptomatic, and his dialysis had to be interrupted. This was felt to be due to a faster rate of dialysis, in combination with severe anemia and low vol umes overall. The patient subsequently tolerated dialysis well. He did receive some transfusion fo r hemoglobin of 6, and tolerated that well. At this point, he is stable for discharge from the hosp ital. His recommendation is to have a chemistry panel checked with his primary care physician at [facility] next week. He will return for dialysis as needed. As usual, he is encouraged to come in sooner for his dialysis, which we do gratis here in the hospital, as he has no other place to ge t it. /[id number]/MODL
== END 2016-08-22 19:00 | disposition home or self-care (01) | DRG 640 ==
LOC: OBSVTOIN 21:48 → F2N 22:55
PROVIDERS: ADMIT Internal Medicine; ATTEND Internal Medicine
PROC: 30233N1 Transfusion of Nonautologous Red Blood Cells into Peripheral Vein, Percutaneous Approach (ICD-10-PCS; principal; 2016-08-20)
PROC: 5A1D00Z (ICD-10-PCS; principal; 2016-08-20)
DX: E87.5 Hyperkalemia (principal); I12.0 Hypertensive chronic kidney disease with stage 5 chronic kidney disease or end stage renal disease; N18.6 End stage renal disease; R00.1 Bradycardia, unspecified; D63.1 Anemia in chronic kidney disease; Z99.2 Dependence on renal dialysis; I25.10 Atherosclerotic heart disease of native coronary artery without angina pectoris; Z87.891 Personal history of nicotine dependence; E55.9 Vitamin D deficiency, unspecified; I48.91 Unspecified atrial fibrillation; M79.2 Neuralgia and neuritis, unspecified
CPT/HCPCS: 82947-QW; 86704-90; 96365; J0360; J0610; J0885; J1644; J1815; P9016

== ENCOUNTER 2016-09-02 12:24 | Inpatient (IN) | payer MEDICAID, OTHER ==
[~2016-09-02 12:24] MED LIST: HEPARIN 50,000 UNIT/10 ML VIAL IV ONE
--- NOTE | 2016-09-02 12:41 | EDPHY ---
H & P Time Seen by Provider: 09/02/16 12:33 HPI/ROS: CHIEF COMPLAINT: Needs dialysis HISTORY OF PRESENT ILLNESS: History of renal failure with last admission for dialysis on 08/20/2016 for symptomatic hyperkalemia. Patient presents today with lower extremity swelling, diarrhea and nausea, feeling weak. Denies chest pain or short of breath. Symptoms moderate. Not better worse with anything. REVIEW OF SYSTEMS: Eye: no change in vision ENT: no sore throat Cardiac: no chest pain or syncope Pulmonary: no cough or SOB Abdomen: No vomiting or abdominal pain Musculoskeletal: no back pain Skin: no rash Neuro: no headache Constitutional: no fever : no urinary symptoms A comprehensive 10 point review of systems is otherwise negative aside from elements mentioned in the history of present illness. PAST MEDICAL HISTORY: History and physical from Dr. Russell dated 08/20/2016 personally reviewed by myself. Includes end-stage renal disease, atrial fibrillation, coronary disease, upper GI bleed, hypertension, anemia, shingles. Social history: Nonsmoker. General Appearance: Alert and conversant, cooperative. Eyes: No scleral icterus. ENT, Mouth: Normal mucous membranes. Respiratory: Very slight Basilar rales but speaks in full sentences. Cardiovascular: Regular rate and rhythm. Gastrointestinal: Abdomen is soft and non tender. Neurological: Alert and oriented x3. Normally conversant. Face symmetric, normal movement and sensation in all extremities. Skin: Healing left flank shingles rash, no vesicles seen. Musculoskeletal: No peripheral edema and no joint swelling. Psychiatric: Not agitated. Emergency Department course/MDM: I-STAT performed check potassium. EKG. Insulin 10 units and glucose 50 g, sodium bicarbonate 50 mEq, calcium gluconate 10 mL IV. All given in the emergency department emergently for medical treatment of hyperkalemia prior to dialysis. Admission to hospitalist service with nephrology consultation for emergent dialysis for hyperkalemia. Smoking Status: Former smoker Constitutional: Initial Vital Signs Temperature (C) 36.4 C 09/02/16 12:27 Heart Rate 53 L 09/02/16 12:27 Respiratory Rate 18 09/02/16 12:27 Blood Pressure 162/64 H 09/02/16 12:27 O2 Sat (%) 100 09/02/16 12:27 O2 Delivery Mode Room Air Allergies/Adverse Reactions: No Known Allergies Allergy (Verified 09/02/16 12:31) Home Medications: Medication Instructions Recorded Ergocalciferol [Vitamin D2 (*)] 50,000 unit PO TU 11/10/15 Calcitriol [Calcitriol (*)] 0.25 mcg PO DAILY #30 cap 12/20/15 Atorvastatin Calcium [Lipitor 40 80 mg PO DAILY 07/02/16 mg (*)] hydrALAZINE [Apresoline 50 mg (*)] 25 mg PO TIDMEAL 07/02/16 Clopidogrel Bisulfate [Plavix (*)] 75 mg PO DAILY #30 tab 07/15/16 Metoprolol Succinate Xr [Toprol Xl 100 mg PO DAILY #30 tab.sr 07/15/16 100 mg (*)] Calcium Carbonate/Vitamin D3 1 tab PO QID 08/04/16 [CALCIUM 600 + VIT D TABLET] Vit B Cmplx 3/FA/Vit C/Biotin 1 tab PO DAILY 08/04/16 [Ev-Peyton Rx Tablet] Gabapentin [Neurontin 100 MG (*)] 100 mg PO DAILY #30 cap 08/06/16 Amiodarone HCl [Pacerone (*)] 200 mg PO DAILY #30 tab 08/08/16 Medical Decision Making - Diagnostics EKG Interpretation: 12-lead EKG interpreted by me; official reading is in trace master. My interpretation is sinus bradycardia, low frontal voltage, QRS is 108. Consult/Admit Bed Type: [facility] 1355, [facility] 1404 Critical Care Time: Critical care time spent by me, Dr. Teran, exclusively with the care of this patient was 30 minutes, exclusive of PA or CONVEYOR BELT OPERATOR time and exclusive of separate procedures. The organ system at risk was metabolic and I ordered glucose, insulin, bicarbonate, calcium, discussion with hospitalist and scraper meat; to stabilize the patient and prevent worsening of the patient's condition. - Data Points Laboratory Results: Laboratory Results 09/02/16 12:55 09/02/16 12:55 09/02/16 09/02/16 09/02/16 13:10 12:55 12:55 WBC 5.02 10^3/uL 10^3/uL (3.80-9.50) RBC 3.41 10^6/uL L 10^6/uL (4.40-6.38) Hgb 10.2 g/dL L g/dL (13.7-17.5) POC Hgb 8.5 gm/dL L gm/dL (14.5-17.3) Hct 32.2 % L % (40.0-51.0) POC Hct 25 % L % (42.8-50.6) MCV 94.4 fL fL (81.5-99.8) MCH 29.9 pg pg (27.9-34.1) MCHC 31.7 g/dL L g/dL (32.4-36.7) RDW 18.9 % H % (11.5-15.2) Plt Count 111 10^3/uL L 10^3/uL (150-400) MPV 10.1 fL fL (8.7-11.7) Neut % (Auto) 63.3 % % (39.3-74.2) Lymph % (Auto) 16.7 % % (15.0-45.0) [place] % (Auto) 7.4 % % (4.5-13.0) Eos % (Auto) 11.4 % H % (0.6-7.6) Baso % (Auto) 0.8 % % (0.3-1.7) Nucleat RBC Rel Count 0.0 % % (0.0-0.2) Absolute Neuts (auto) 3.18 10^3/uL 10^3/uL (1.70-6.50) Absolute Lymphs (auto) 0.84 10^3/uL L 10^3/uL (1.00-3.00) Absolute Monos (auto) 0.37 10^3/uL 10^3/uL (0.30-0.80) Absolute Eos (auto) 0.57 10^3/uL H 10^3/uL (0.03-0.40) Absolute Basos (auto) 0.04 10^3/uL 10^3/uL (0.02-0.10) Absolute Nucleated RBC 0.00 10^3/uL 10^3/uL (0-0.01) Immature Gran % 0.4 % % (0.0-1.1) Immature Gran # 0.02 10^3/uL 10^3/uL (0.00-0.10) POC Sodium 141 mEq/L mEq/L (134-144) Sodium 146 mEq/L H mEq/L (134-144) POC Potassium 8.0 mEq/L H* mEq/L (3.3-5.0) Potassium 7.6 mEq/L H* mEq/L (3.5-5.2) POC Chloride 116 mEq/L H mEq/L (96-108) Chloride 111 mEq/L H mEq/L (97-110) Carbon Dioxide 11 mEq/l L mEq/l (22-31) Anion Gap 24 mEq/L H mEq/L (8-16) POC BUN > 140 mg/dL H* mg/dL (7-23) BUN 168 mg/dL H* mg/dL (7-23) Creatinine 17.2 mg/dL H* mg/dL (0.7-1.3) POC Creatinine 17.5 mg/dL H* mg/dL (0.8-1.5) Estimated GFR 3 Glucose 102 mg/dL H mg/dL (70-100) POC Glucose 100 mg/dL mg/dL (70-100) Calcium 8.5 mg/dL mg/dL (8.5-10.4) Total Bilirubin 0.8 mg/dL mg/dL (0.1-1.4) AST 22 IU/L IU/L (17-59) ALT 43 IU/L IU/L (21-72) Alkaline Phosphatase 91 IU/L IU/L (38-126) Total Protein 7.7 g/dL g/dL (6.3-8.2) Albumin 5.2 g/dL H g/dL (3.5-5.0) Medications Given: Discontinued Medications Dextrose (Dextrose 50% Syringe) 25 gm IVP EDNOW ONE Stop: 09/02/16 13:55 Last Admin: 09/02/16 15:21 Dose: 25 gm Calcium Gluconate (Calcium Gluconate 1 Gm (Premix)) 50 mls @ 100 mls/hr IV EDNOW ONE Stop: 09/02/16 14:23 Last Admin: 09/02/16 15:21 Dose: 50 mls Insulin Human Regular (Humulin R) 10 unit IVP EDNOW ONE Stop: 09/02/16 13:55 Last Admin: 09/02/16 15:21 Dose: 10 units Sodium Bicarbonate (Sodium Bicarbonate) 50 meq IVP EDNOW ONE Stop: 09/02/16 13:55 Last Admin: 09/02/16 15:21 Dose: 50 meq Point of Care Test Results: 09/02/16 13:10 POC Sodium 141 POC Potassium 8.0 H* POC Chloride 116 H POC BUN > 140 H* POC Creatinine 17.5 H* POC Glucose 100 Departure - Departure Disposition: [facility] Inpatient Acute Clinical Impression: Hyperkalemia, Renal failure, End stage renal disease Condition: Serious
[2016-09-02 13:05] LABS: % IMMATURE GRANULYOCYTES 0.4 % (0.0-1.1); ABSOLUTE IMMATURE GRANULOCYTES 0.02 10^3/uL (0.00-0.10); ADD DIFF? NO; ADD MORPH? NO; ADD SCAN? NO; ATYPICAL LYMPHOCYTE FLAG 0 (0-99); FRAGMENT RBC FLAG 0 (0-99); HEMATOCRIT 32.2 % (40.0-51.0); HEMOGLOBIN 10.2 g/dL (13.7-17.5); LEFT SHIFT FLG 0 (0-99); LIPEMIA HEMOLYSIS FLAG 80 (0-99); MEAN CELL HEMOGLOBIN 29.9 pg (27.9-34.1); MEAN CELL HEMOGLOBIN CONCENTR. 31.7 g/dL (32.4-36.7); MEAN CELL VOLUME 94.4 fL (81.5-99.8); MEAN PLATELET VOLUME 10.1 fL (8.7-11.7); PLATELET CLUMPS FLAG 0 (0-99); PLATELET COUNT 111 10^3/uL (150-400); RED BLOOD CELL COUNT 3.41 10^6/uL (4.40-6.38); RED CELL DISTRIBUTION WIDTH 18.9 % (11.5-15.2)
--- NOTE | 2016-09-02 13:11 | CPEKG ---
Heart Rate: 49 RR Interval: 1224 P-R Interval: 212 QRSD Interval: 108 QT Interval: 480 QTC Interval: 434 P [place]: 65 QRS [place]: 73 T Wave [place]: 68 EKG Severity - OTHERWISE NORMAL ECG - EKG Impression: SINUS BRADYCARDIA EKG Impression: LOW VOLTAGE IN FRONTAL LEADS Electronically Signed By: Esteban Teran 02-Sep-2016 14:01:15
[2016-09-02 13:30] LABS: ALANINE AMINOTRANSFERASE 43 IU/L (21-72); ALBUMIN 5.2 g/dL (3.5-5.0); ALKALINE PHOSPHATASE 91 IU/L (38-126); ANION GAP 24 mEq/L (8-16); ASPARTATE AMINOTRANSFERASE 22 IU/L (17-59); BILIRUBIN,TOTAL 0.8 mg/dL (0.1-1.4); CALCIUM 8.5 mg/dL (8.5-10.4); CARBON DIOXIDE 11 mEq/l (22-31); CHLORIDE 111 mEq/L (97-110); GLUCOSE 102 mg/dL (70-100); SODIUM 146 mEq/L (134-144); TOTAL PROTEIN 7.7 g/dL (6.3-8.2)
[2016-09-02 13:46] LABS: CREATININE 17.2 mg/dL (0.7-1.3); GLOMERULAR FILTRATION RATE 3
[2016-09-02 13:48] LABS: POTASSIUM 7.6 mEq/L (3.5-5.2)
[2016-09-02] MEDS ORDERED: SODIUM BICARBONATE 50 MEQ/50 ML SYR IVP ONE (13:54)
[2016-09-02] MEDS ORDERED: D50W 25 GM/50 ML SYR IVP ONE (13:54)
[2016-09-02] MEDS ORDERED: CALCIUM GLUCONATE 50 ML IV ONE (13:54)
[2016-09-02] MEDS ORDERED: INSULIN REGULAR HUMAN 100 UNIT/ML IVP ONE (13:54)
[2016-09-02] MEDS ORDERED: PROMETHAZINE HCL 25 MG/ML INJ IVP PRN (14:15)
[2016-09-02] MEDS ORDERED: ONDANSETRON 4 MG/2 ML VIAL IVP PRN (14:15)
[2016-09-02] MEDS ORDERED: ACETAMINOPHEN 325 MG TAB PO PRN (14:15)
[2016-09-02] MEDS ORDERED: ONDANSETRON DISINTEGRATING 4 MG TAB PO PRN (14:15)
--- NOTE | 2016-09-02 14:46 | GHP ---
DATE OF ADMISSION: 09/02/2016 HISTORY OF PRESENT ILLNESS: The patient is a 66-year-old gentleman with end-stage renal disease, an d no access to regular outpatient dialysis, who presents with nausea, diarrhea, lower extremity swel ling. He has not had vomiting. He has not had chest pain. These are pretty standard symptoms he h as. He has not had dialysis, his last hemodialysis was 12 days ago. REVIEW OF SYSTEMS: A complete 10-point review of systems conducted and negative except as noted in the HPI. PAST MEDICAL HISTORY: 1. End-stage renal disease, without outpatient dialysis. 2. CAD, on Plavix. 3. History of atrial fibrillation with RVR. 4. History of upper GI bleed. 5. Hypertension. 6. Anemia of chronic renal failure. 7. Shingles. 8. Severe protein calorie malnutrition. SURGICAL HISTORY: None. SOCIAL HISTORY: Lives alone, in [place]. No tobacco, alcohol or illicit. FAMILY HISTORY: Mother with CVA. she does have diabetes. ALLERGIES: None. HOME MEDICATIONS: Hydralazine, Nephro-Peyton, Toprol, gabapentin, ergocalciferol, Plavix, Tums, calci triol, atorvastatin, amiodarone. PHYSICAL EXAM: VITAL SIGNS: Presenting vitals: Temp 36.4, blood pressure 160/64, pulse 53, breath ing 18 times a minute, and 100% on room air. GENERAL: No acute distress. HEENT: Sclerae anicteri c. Oropharynx clear. Mucous membranes moist. NECK: Supple, without lymphadenopathy or JVD. LUNG S: Clear to auscultation bilaterally. There is a dialysis catheter in the right upper chest, clean , dry and intact, without fluctuance or erythema. HEART: S1, S2 without murmurs. ABDOMEN: Soft, nontender, nondistended. EXTREMITIES: Lower extremities show trace edema bilaterally. Calves are nontender. SKIN: without rash. NEUROLOGIC: Exam is nonfocal. LABORATORY DATA: White count 5, hematocrit 32.2, which is greater than his baseline, platelets are 111,000. Sodium 146, potassium 7.6, chloride 111, bicarb 11, BUN 168, creatinine 17.2, glucose 102, albumin is 5.2. EKG, interpreted by me, shows sinus bradycardia at 49, with normal axis and intervals. There was so me moderately prominent Ts on the precordium, compared with a previous EKG. His T-waves are more ro bust, however, when I compare this EKG with his last presentation, with hyperkalemia, it has less pe ak T-waves. QRS is normal on today's EKG. I discussed the case with Dr. Esteban Teran. ASSESSMENT/PLAN: A 66-year-old gentleman with: 1. End-stage renal disease, and no dialysis. 2. Hyperkalemia, this is secondary to no dialysis. He received calcium. Glucose, insulin in the e mergency department. I will repeat a chem-7. We will follow him on telemetry. 3. End-stage renal disease, with the urgent need for dialysis. Dialysis today. 4. Coronary artery disease. Continue his Toprol and Plavix. 5. Atrial fibrillation. We will follow. Given his access to care he is probably a poor candidate for anticoagulation. 6. Prophylaxis with subcu heparin. 7. Disposition: Observation status. /[id number]/MODL
[2016-09-02] MEDS ORDERED: INSULIN REGULAR HUMAN 100 UNIT/ML ONE (15:00)
[2016-09-02] MEDS ORDERED: MANNITOL 25% 12.5 GM/50 ML VIAL IV ONE (16:00)
[2016-09-02 17:54] LABS: ANION GAP 17 mEq/L (8-16); CALCIUM 9.4 mg/dL (8.5-10.4); CARBON DIOXIDE 17 mEq/l (22-31); CHLORIDE 109 mEq/L (97-110); GLOMERULAR FILTRATION RATE 5; GLUCOSE 46 mg/dL (70-100); POTASSIUM 5.8 mEq/L (3.5-5.2); SODIUM 143 mEq/L (134-144)
[2016-09-02 18:04] LABS: CREATININE 10.7 mg/dL (0.7-1.3)
[2016-09-02] MEDS: CALCIUM CARB W/VIT D 500 MG TAB PO SCH ×2 (19:07→19:54)
[2016-09-02] MEDS: hydrALAZINE 25 MG TAB PO SCH (19:53)
[2016-09-02] MEDS ORDERED: HEPARIN 50,000 UNIT/10 ML VIAL ONE (20:00)
--- NOTE | 2016-09-02 21:36 | SOAPPROG ---
SOAP Progress Note Assessment/Plan: Assessment: Juan Manuel is well known to our service. He presents today with severe hyperkalemia. He otherwise does not appear clinically changed. -HD tonight and tomorrow. He had some dysequilibrium on his second run last time , so will give mannitol. -He is not back in NSR -Resume BP meds -He ate well the pm Plan: 09/02/16 21:34 Subjective: Feeling ok Objective: Vital Signs Temp Pulse Resp BP Pulse Ox 36.6 C 53 L 18 177/84 H 94 09/02/16 20:38 09/02/16 20:38 09/02/16 20:38 09/02/16 20:38 09/02/16 20:38 Laboratory Results 09/02/16 17:00 09/01/16 09/02/16 09/03/16 05:59 05:59 05:59 Intake Total 50 Output Total 1500 Balance -1450 Physical Exam - Physical Exam General Appearance: no apparent distress Neck: other (line site ok) Respiratory: lungs clear Cardiac/Chest: regular rate, rhythm Abdomen: soft Extremities: pedal edema Neuro/Psych: oriented x 3 ICD10 Worksheet Patient Problems: Problems Problem Status Onset End stage renal disease Acute Hyperkalemia Acute Renal failure Acute Abdominal pain Acute Acute renal failure Acute Acute upper GI bleed Acute Anemia Acute Anemia associated with acute blood loss Acute Diarrhea Acute Hypertension Acute Hypocalcemia Acute Metabolic acidosis Acute Shingles (herpes zoster) polyneuropathy Acute
[2016-09-02] MEDS: HEPARIN 5,000 UNIT/0.5 ML SYR SC SCH (21:56)
[2016-09-03] MEDS: HEPARIN 5,000 UNIT/0.5 ML SYR SC SCH ×3 (05:15→20:56)
[2016-09-03] MEDS: CALCIUM CARB W/VIT D 500 MG TAB PO SCH ×4 (05:15→20:57)
[2016-09-03 06:11] LABS: ANION GAP 15 mEq/L (8-16); CALCIUM 8.1 mg/dL (8.5-10.4); CARBON DIOXIDE 17 mEq/l (22-31); CHLORIDE 110 mEq/L (97-110); GLOMERULAR FILTRATION RATE 4; GLUCOSE 79 mg/dL (70-100); SODIUM 142 mEq/L (134-144)
[2016-09-03 06:17] LABS: CREATININE 11.6 mg/dL (0.7-1.3)
--- NOTE | 2016-09-03 09:28 | SOAPPROG ---
SOEDY Progress Note Assessment/Plan: Assessment:Plan: ESRD-stable on Hd -had Mannitol yesterday and today to help avoid dialysis dysequilibrium syndrome -hyperkalemic -on renal diet -dialysis today and daily Diarrhea-states he has had this for one week or more -unclear to me if he may have received abx last admit -will check C diff 09/03/16 09:25 Subjective: stable on dialysis Objective: Vital Signs Temp Pulse Resp BP Pulse Ox 36.7 C 61 18 137/71 H 94 09/03/16 04:34 09/03/16 04:34 09/03/16 04:34 09/03/16 04:34 09/03/16 04:34 Laboratory Results 09/03/16 04:45 09/02/16 09/03/16 09/04/16 05:59 05:59 05:59 Intake Total 350 Output Total 1500 Balance -1150 Physical Exam - Physical Exam General Appearance: WD/WN, alert, no apparent distress EENT: normal ENT inspection Neck: normal inspection Respiratory: decreased breath sounds Cardiac/Chest: regular rate, rhythm, No diastolic murmur, No systolic murmur Abdomen: normal bowel sounds, non-tender, soft Extremities: No swelling ICD10 Worksheet Patient Problems: Problems Problem Status Onset End stage renal disease Acute Hyperkalemia Acute Renal failure Acute Abdominal pain Acute Acute renal failure Acute Acute upper GI bleed Acute Anemia Acute Anemia associated with acute blood loss Acute Diarrhea Acute Hypertension Acute Hypocalcemia Acute Metabolic acidosis Acute Shingles (herpes zoster) polyneuropathy Acute
[2016-09-03] MEDS ORDERED: MANNITOL 25% 12.5 GM/50 ML VIAL IV ONE (09:30)
[2016-09-03] MEDS: GABAPENTIN 100 MG CAP PO SCH (10:46)
[2016-09-03] MEDS: AMIODARONE HCL 200 MG TAB PO SCH (10:46)
[2016-09-03] MEDS: CLOPIDOGREL BISULFATE 75 MG TAB PO SCH (10:46)
[2016-09-03] MEDS: NEPHROVITE FOLIC ACID/VIT B&C 1 TAB PO SCH (10:46)
[2016-09-03] MEDS: CALCITRIOL 0.25 MCG CAP PO SCH (10:46)
[2016-09-03] MEDS: ATORVASTATIN CALCIUM 40 MG TAB PO SCH (10:47)
[2016-09-03] MEDS: hydrALAZINE 25 MG TAB PO SCH ×3 (11:14→18:18)
[2016-09-03] MEDS: METOPROLOL SUCCINATE XR 100 MG TAB PO SCH (11:14)
--- NOTE | 2016-09-03 16:06 | HOSPPROG ---
Hospitalist Progress Note Assessment/Plan: #stage v ckd presenting with kyperkalemia -cont HD per nephrology #Diarrhea -cdiff pending #CAD #Afib -pt is not able to have his inr checked. will discuss options with our piano case maker dispo: will change to inpatient status given that the patient required hemodialysis Subjective: diarrhea over the past few weeks. no fever or chills. feels generally weak Objective: Vital Signs Temp Pulse Resp BP Pulse Ox 36.7 C 62 12 158/83 H 93 09/03/16 10:35 09/03/16 10:35 09/03/16 10:35 09/03/16 10:40 09/03/16 10:35 Laboratory Results 09/03/16 04:45 09/02/16 09/03/16 09/04/16 05:59 05:59 05:59 Intake Total 350 Output Total 1500 Balance -1150 - Physical Exam Constitutional: no apparent distress, appears nourished, not in pain Cardiovascular: no murmur, rub, or gallop, irregularly irregular, No edema Respiratory: no respiratory distress, no rales or rhonchi, clear to auscultation Gastrointestinal: normoactive bowel sounds, soft, non-tender abdomen, no palpable masses ICD10 Worksheet Patient Problems: Problems Problem Status Onset Acute renal failure Acute Anemia Acute Abdominal pain Acute Hyperkalemia Acute Hypocalcemia Acute Renal failure Acute Hypertension Acute Acute upper GI bleed Acute Anemia associated with acute blood loss Acute End stage renal disease Acute Metabolic acidosis Acute Diarrhea Acute Shingles (herpes zoster) polyneuropathy Acute
[2016-09-04] MEDS: CALCIUM CARB W/VIT D 500 MG TAB PO SCH ×4 (06:04→20:41)
[2016-09-04] MEDS: HEPARIN 5,000 UNIT/0.5 ML SYR SC SCH ×3 (06:05→20:42)
[2016-09-04 06:18] LABS: % IMMATURE GRANULYOCYTES 0.3 % (0.0-1.1); ABSOLUTE IMMATURE GRANULOCYTES 0.01 10^3/uL (0.00-0.10); ADD DIFF? NO; ADD MORPH? NO; ADD SCAN? NO; ATYPICAL LYMPHOCYTE FLAG 0 (0-99); FRAGMENT RBC FLAG 0 (0-99); HEMATOCRIT 25.9 % (40.0-51.0); HEMOGLOBIN 8.7 g/dL (13.7-17.5); LEFT SHIFT FLG 0 (0-99); LIPEMIA HEMOLYSIS FLAG 80 (0-99); MEAN CELL HEMOGLOBIN 30.1 pg (27.9-34.1); MEAN CELL HEMOGLOBIN CONCENTR. 33.6 g/dL (32.4-36.7); MEAN CELL VOLUME 89.6 fL (81.5-99.8); MEAN PLATELET VOLUME 11.2 fL (8.7-11.7); PLATELET CLUMPS FLAG 0 (0-99); PLATELET COUNT 80 10^3/uL (150-400); RED BLOOD CELL COUNT 2.89 10^6/uL (4.40-6.38); RED CELL DISTRIBUTION WIDTH 17.5 % (11.5-15.2)
[2016-09-04 06:27] LABS: ALBUMIN 3.6 g/dL (3.5-5.0); ANION GAP 12 mEq/L (8-16); CALCIUM 8.2 mg/dL (8.5-10.4); CARBON DIOXIDE 20 mEq/l (22-31); CHLORIDE 105 mEq/L (97-110); GLOMERULAR FILTRATION RATE 6; GLUCOSE 92 mg/dL (70-100); POTASSIUM 5.8 mEq/L (3.5-5.2); SODIUM 137 mEq/L (134-144)
[2016-09-04 06:36] LABS: CREATININE 9.2 mg/dL (0.7-1.3)
[2016-09-04] MEDS: hydrALAZINE 25 MG TAB PO SCH ×3 (09:42→18:46)
[2016-09-04] MEDS: AMIODARONE HCL 200 MG TAB PO SCH (09:42)
[2016-09-04] MEDS ORDERED: LOPERAMIDE HCL 2 MG CAP PO PRN (10:11)
--- NOTE | 2016-09-04 14:22 | HOSPPROG ---
Hospitalist Progress Note Assessment/Plan: #stage v ckd presenting with kyperkalemia -I discussed the case with Dr. kAhtar who is recommedning one more day of HD given persistent hyperkalemia #Diarrhea -cdiff ordered but not sent #CAD #Afib -risks and benefits of anticoagulation in the setting of stroke risk reduction were dicussed with the patient who at this time would not want to start anticoagulation out of fear of bleeding and inability to reliably get his inr checked dispo: continue inpatient care given that the patient required hemodialysis Subjective: continues to have diarrhea. feeling better overall after HD Saturday and Saturday Objective: Vital Signs Temp Pulse Resp BP Pulse Ox 36.7 C 63 18 149/78 H 93 09/04/16 11:31 09/04/16 11:31 09/04/16 11:31 09/04/16 11:31 09/04/16 11:31 Laboratory Results 09/04/16 04:10 09/04/16 04:10 09/03/16 09/04/16 09/05/16 05:59 05:59 05:59 Intake Total 370 Balance 370 - Physical Exam Constitutional: no apparent distress, appears nourished, not in pain Cardiovascular: regular rate and rhythym, no murmur, rub, or gallop, No edema Respiratory: no respiratory distress, no rales or rhonchi, clear to auscultation Gastrointestinal: normoactive bowel sounds, soft, non-tender abdomen, no palpable masses ICD10 Worksheet Patient Problems: Problems Problem Status Onset Acute renal failure Acute Anemia Acute Abdominal pain Acute Hyperkalemia Acute Hypocalcemia Acute Renal failure Acute Hypertension Acute Acute upper GI bleed Acute Anemia associated with acute blood loss Acute End stage renal disease Acute Metabolic acidosis Acute Diarrhea Acute Shingles (herpes zoster) polyneuropathy Acute
[2016-09-04] MEDS ORDERED: ERGOCALCIFEROL 50,000 I.UNIT CAP PO SCH (15:14)
--- NOTE | 2016-09-04 17:59 | SOAPPROG ---
SOEDY Progress Note Assessment/Plan: Assessment: 1. esrd: repeat hd again tomorrow. Has been doing slow, short treatments to avoid dysequilibrium, will do full rx tomorrow. [place] benefits for outpt [place]rd [place]. Unsure if possibility of having avf placed during an admit has been explored. 2. hyperK: dialysis as above. 3. htn: cont meds, will uf a bit on hd. Plan: 09/04/16 17:56 Subjective: Seen on hd. Feeling better. Tolerating treatment without issue. Objective: Vital Signs Temp Pulse Resp BP Pulse Ox 36.7 C 63 18 149/78 H 93 09/04/16 11:31 09/04/16 11:31 09/04/16 11:31 09/04/16 11:31 09/04/16 11:31 Laboratory Results 09/04/16 04:10 09/04/16 04:10 09/03/16 09/04/16 09/05/16 05:59 05:59 05:59 Intake Total 490 Balance 490 Physical Exam - Physical Exam General Appearance: no apparent distress Cardiac/Chest: regular rate, rhythm, other (no rub) Extremities: swelling (none) ICD10 Worksheet Patient Problems: Problems Problem Status Onset End stage renal disease Acute Hyperkalemia Acute Renal failure Acute Abdominal pain Acute Acute renal failure Acute Acute upper GI bleed Acute Anemia Acute Anemia associated with acute blood loss Acute Diarrhea Acute Hypertension Acute Hypocalcemia Acute Metabolic acidosis Acute Shingles (herpes zoster) polyneuropathy Acute
[2016-09-04] MEDS: NEPHROVITE FOLIC ACID/VIT B&C 1 TAB PO SCH (18:46)
[2016-09-04] MEDS: METOPROLOL SUCCINATE XR 100 MG TAB PO SCH (18:46)
[2016-09-04] MEDS: CLOPIDOGREL BISULFATE 75 MG TAB PO SCH (18:46)
[2016-09-04] MEDS: GABAPENTIN 100 MG CAP PO SCH (18:47)
[2016-09-04] MEDS: CALCITRIOL 0.25 MCG CAP PO SCH (18:47)
[2016-09-04] MEDS: ATORVASTATIN CALCIUM 40 MG TAB PO SCH (18:47)
[2016-09-05] MEDS: CALCIUM CARB W/VIT D 500 MG TAB PO SCH ×3 (05:47→15:55)
[2016-09-05] MEDS: HEPARIN 5,000 UNIT/0.5 ML SYR SC SCH ×2 (05:48→11:29)
[2016-09-05 05:57] LABS: ALBUMIN 3.3 g/dL (3.5-5.0); ANION GAP 7 mEq/L (8-16); CALCIUM 8.4 mg/dL (8.5-10.4); CARBON DIOXIDE 26 mEq/l (22-31); CHLORIDE 99 mEq/L (97-110); CREATININE 6.1 mg/dL (0.7-1.3); GLOMERULAR FILTRATION RATE 9; GLUCOSE 90 mg/dL (70-100); SODIUM 132 mEq/L (134-144)
[2016-09-05] MEDS: hydrALAZINE 25 MG TAB PO SCH ×3 (08:31→17:59)
[2016-09-05] MEDS: AMIODARONE HCL 200 MG TAB PO SCH (08:31)
--- NOTE | 2016-09-05 11:58 | SOAPPROG ---
SOAP Progress Note Assessment/Plan: Assessment: 1. ESRD. Unfortunately has no outpatient benefits. Will have dialysis #4, consecutive daily, today. Azotemia, hyperkalemia much improved. Can likely d/c after dialysis. 2. Diarrhea. C. diff toxin negative. Query whether some effect of uremia as tends to recur after long stretches w/o dialysis. Pt thinks improving today. If not, could chk stool cxs, hemoccult, O&P, etc. Does not want immodium as associates this with his stomach ulcer. 3. Access. Has well functioning tunneled HD catheter. Plan: 09/05/16 11:54 09/05/16 11:55 Subjective: Had diarrhea again yesterday but none today. Had dialysis yesterday. No other complaints. Objective: Vital Signs Temp Pulse Resp BP Pulse Ox 37.0 C 57 L 12 154/79 H 96 09/05/16 11:39 09/05/16 11:39 09/05/16 07:53 09/05/16 11:39 09/05/16 07:53 Laboratory Results 09/04/16 04:10 09/05/16 04:45 09/04/16 09/05/16 09/06/16 05:59 05:59 05:59 Intake Total 490 610 Balance 490 610 Comfortable male in bed RRR, no m/g/r CTAB ABdom soft, nt, normal bowels sounds No LE edema R tunneled HD cath without erythema/exudate ICD10 Worksheet Patient Problems: Problems Problem Status Onset Acute renal failure Acute Anemia Acute Abdominal pain Acute Hyperkalemia Acute Hypocalcemia Acute Renal failure Acute Hypertension Acute Acute upper GI bleed Acute Anemia associated with acute blood loss Acute End stage renal disease Acute Metabolic acidosis Acute Diarrhea Acute Shingles (herpes zoster) polyneuropathy Acute
[2016-09-05] MEDS: ATORVASTATIN CALCIUM 40 MG TAB PO SCH (15:53)
[2016-09-05] MEDS: METOPROLOL SUCCINATE XR 100 MG TAB PO SCH (15:53)
[2016-09-05] MEDS: NEPHROVITE FOLIC ACID/VIT B&C 1 TAB PO SCH (15:55)
[2016-09-05] MEDS: GABAPENTIN 100 MG CAP PO SCH (15:55)
[2016-09-05] MEDS: CALCITRIOL 0.25 MCG CAP PO SCH (15:55)
[2016-09-05] MEDS: CLOPIDOGREL BISULFATE 75 MG TAB PO SCH (15:56)
[2016-09-05] MEDS ORDERED: HEPARIN 50,000 UNIT/10 ML VIAL ONE (16:00)
[2016-09-05 16:45] VITALS: PULSE 49; RESP 18; TEMP 97.4; O2SAT 93
[2016-09-05 18:01] VITALS: BP 203/98
--- NOTE | 2016-09-05 19:03 | GDS ---
DISCHARGE DIAGNOSES: 1. End-stage renal disease, requiring hemodialysis. 2. Resolved diarrhea. 3. Atrial fibrillation. CONSULTANTS: [facility]. HOSPITAL COURSE AND STAY BY PROBLEM: End-stage renal disease: The patient presented [facility] reporting nausea, diarrhea, and swelling. He was found to have potassium of 7.6 and creatinine of 17.2 with a BUN of 168. The patient was subsequently dialyzed on the , , , and again o n the . On the day of discharge, the patient has been seen by Nephrology who thought it was reasonable for t he patient to be discharged home where he will need to come back to the hospital for dialysis. He s hould have repeat laboratory studies done on Saturday with his primary care provider. PHYSICAL EXAM: VITAL SIGNS: On day of discharge, blood pressure 154/79, pulse of 57, respiratory r ate 12, O2 saturation 96% on room air, temperature afebrile. GENERAL: No acute distress. HEART: S1, S2. LUNGS: Clear. ABDOMEN: Soft. EXTREMITIES: No edema. DISCHARGE MEDICATIONS: Please refer to discharge medication reconciliation in [facility] for details. DISCHARGE INSTRUCTIONS: The patient will be discharged from the hospital where he should follow up with [facility] to discuss anticoagulation for his atrial fibrillation. He should also have de s metabolic panel checked on Saturday and will need further dialysis. I did discuss starting the patient on anticoagulation in the setting of his atrial fibrillation; how ever, he was worried about the risks of bleeding and he was unsure if he would be able to reliably g et his INR checked. /[id number]/MODL
== END 2016-09-05 18:59 | disposition home or self-care (01) | DRG 684 ==
LOC: INTOOBSV 13:54 → F2W 17:42 → OBSVTOIN 09-03 16:07
PROVIDERS: ADMIT Internal Medicine; ATTEND Family Medicine
PROC: 5A1D60Z (ICD-10-PCS; principal; 2016-09-02)
DX: N18.6 End stage renal disease (principal); I12.0 Hypertensive chronic kidney disease with stage 5 chronic kidney disease or end stage renal disease; I48.91 Unspecified atrial fibrillation; I25.10 Atherosclerotic heart disease of native coronary artery without angina pectoris; Z99.2 Dependence on renal dialysis
CPT/HCPCS: 82947-QW; G0378; J0610; J1644; J1815; J2150

== ENCOUNTER 2016-09-16 17:03 | Inpatient (IN) | payer MEDICAID, OTHER ==
--- NOTE | 2016-09-16 18:56 | EDPHY ---
HPI/HX/ROS/PE/MDM Narrative: CHIEF COMPLAINT: Needs dialysis. HPI: The patient is a 66-year-old male with a history of end-stage kidney disease presenting for dialysis. The patient is seen in the ED approximately every two weeks to receive dialysis as his social situation precludes him from obtaining regular outpatient dialysis. Today he is complaining of left flank pain. He denies chest pain, shortness of breath. REVIEW OF SYSTEMS: Aside from elements discussed in the HPI, a comprehensive 10-point review of systems was reviewed and is negative. PMH: End-stage renal disease, CAD, afib, hypertension, shingles. SOCIAL HISTORY: No alcohol use. No drug use. No tobacco use. PHYSICAL EXAM: General: Patient is alert, in no acute distress. ENT: Eyes are normal to inspection. ENT inspection normal. Neck: Normal inspection. Full range of motion. Respiratory: No respiratory distress. Breath sounds normal bilaterally. Cardiovascular: Regular rate and rhythm. Strong peripheral pulses. Abdomen: The abdomen is nontender to palpation. There are no peritoneal signs. There are normal bowel sounds. Chest: Port in right chest wall. Back: Normal to inspection. No tenderness to palpation. Skin: Normal color. No rash. Warm and dry. Extremities: Normal appearance. Full range of motion. Neuro: Oriented x3. Normal motor function. Normal sensory function. Portions of this note were transcribed by an ED scribe. I personally performed the history, physical exam, and medical decision making; and confirm the accuracy of the information in the transcribed note. ED Course: An IV was established and labs ordered. Potassium elevated at 8.2. EKG ordered. 1944: Consulted with Dr. Conway, hospitalist. He accepts admission. 1952: Consulted with Dr. Harrell, nephrology. He will dialyze the patient tonight. EKG was ordered and interpreted by myself. Please see [facility] [employer] system for official reading. - Data Points Laboratory Results: Laboratory Results 09/16/16 19:05 09/16/16 19:05 09/16/16 09/16/16 19:05 19:05 WBC 4.70 10^3/uL 10^3/uL (3.80-9.50) RBC 2.76 10^6/uL L 10^6/uL (4.40-6.38) Hgb 8.4 g/dL L g/dL (13.7-17.5) Hct 26.8 % L % (40.0-51.0) MCV 97.1 fL fL (81.5-99.8) MCH 30.4 pg pg (27.9-34.1) MCHC 31.3 g/dL L g/dL (32.4-36.7) RDW 18.6 % H % (11.5-15.2) Plt Count 90 10^3/uL L 10^3/uL (150-400) MPV 11.3 fL fL (8.7-11.7) Neut % (Auto) 67.3 % % (39.3-74.2) Lymph % (Auto) 17.9 % % (15.0-45.0) [place] % (Auto) 6.0 % % (4.5-13.0) Eos % (Auto) 6.4 % % (0.6-7.6) Baso % (Auto) 1.1 % % (0.3-1.7) Nucleat RBC Rel Count 0.0 % % (0.0-0.2) Absolute Neuts (auto) 3.17 10^3/uL 10^3/uL (1.70-6.50) Absolute Lymphs (auto) 0.84 10^3/uL L 10^3/uL (1.00-3.00) Absolute Monos (auto) 0.28 10^3/uL L 10^3/uL (0.30-0.80) Absolute Eos (auto) 0.30 10^3/uL 10^3/uL (0.03-0.40) Absolute Basos (auto) 0.05 10^3/uL 10^3/uL (0.02-0.10) Absolute Nucleated RBC 0.00 10^3/uL 10^3/uL (0-0.01) Immature Gran % 1.3 % H % (0.0-1.1) Immature Gran # 0.06 10^3/uL 10^3/uL (0.00-0.10) Sodium 147 mEq/L H mEq/L (134-144) Potassium 8.2 mEq/L H* mEq/L (3.5-5.2) Chloride 114 mEq/L H mEq/L (97-110) Carbon Dioxide 8 mEq/l L* mEq/l (22-31) Anion Gap 25 mEq/L H mEq/L (8-16) BUN > 120 mg/dL H* mg/dL (7-23) Creatinine 18.0 mg/dL H* mg/dL (0.7-1.3) Estimated GFR 3 Glucose 80 mg/dL mg/dL (70-100) Calcium 8.2 mg/dL L mg/dL (8.5-10.4) General Time Seen by Provider: 09/16/16 18:54 Initial Vital Signs: Initial Vital Signs Temperature (C) 36.4 C 09/16/16 17:10 Heart Rate 60 09/16/16 17:10 Respiratory Rate 18 09/16/16 17:10 Blood Pressure 148/64 H 09/16/16 17:10 O2 Sat (%) 99 09/16/16 17:10 O2 Delivery Mode Room Air Allergies/Adverse Reactions: No Known Allergies Allergy (Verified 09/16/16 17:09) Home Medications: Medication Instructions Recorded Ergocalciferol [Vitamin D2 (*)] 50,000 unit PO TU 11/10/15 Calcitriol [Calcitriol (*)] 0.25 mcg PO DAILY #30 cap 12/20/15 Atorvastatin Calcium [Lipitor 40 80 mg PO DAILY 07/02/16 mg (*)] hydrALAZINE [Apresoline 50 mg (*)] 25 mg PO TIDMEAL 07/02/16 Clopidogrel Bisulfate [Plavix (*)] 75 mg PO DAILY #30 tab 07/15/16 Metoprolol Succinate Xr [Toprol Xl 100 mg PO DAILY #30 tab.sr 07/15/16 100 mg (*)] Calcium Carbonate/Vitamin D3 1 tab PO QID 08/04/16 [CALCIUM 600 + VIT D TABLET] Vit B Cmplx 3/FA/Vit C/Biotin 1 tab PO DAILY 08/04/16 [Ev-Peyton Rx Tablet] Gabapentin [Neurontin 100 MG (*)] 100 mg PO DAILY #30 cap 08/06/16 Amiodarone HCl [Pacerone (*)] 200 mg PO DAILY #30 tab 08/08/16 Departure - Departure Disposition: [facility] Acute Clinical Impression: Kidney failure, Hyperkalemia Condition: Fair Referrals: DOESN'TREMEMBER,NAME [Other] - As per Instructions Report Scribed for: Justice Carmen Report Scribed by: Slim Murray Date of Report: 09/16/16 Time of Report: 18:56
[2016-09-16 19:13] LABS: % IMMATURE GRANULYOCYTES 1.3 % (0.0-1.1); ABSOLUTE IMMATURE GRANULOCYTES 0.06 10^3/uL (0.00-0.10); ADD DIFF? NO; ADD MORPH? NO; ADD SCAN? NO; ATYPICAL LYMPHOCYTE FLAG 0 (0-99); FRAGMENT RBC FLAG 0 (0-99); HEMATOCRIT 26.8 % (40.0-51.0); HEMOGLOBIN 8.4 g/dL (13.7-17.5); LEFT SHIFT FLG 0 (0-99); LIPEMIA HEMOLYSIS FLAG 80 (0-99); MEAN CELL HEMOGLOBIN 30.4 pg (27.9-34.1); MEAN CELL HEMOGLOBIN CONCENTR. 31.3 g/dL (32.4-36.7); MEAN CELL VOLUME 97.1 fL (81.5-99.8); MEAN PLATELET VOLUME 11.3 fL (8.7-11.7); PLATELET CLUMPS FLAG 10 (0-99); PLATELET COUNT 90 10^3/uL (150-400); RED BLOOD CELL COUNT 2.76 10^6/uL (4.40-6.38); RED CELL DISTRIBUTION WIDTH 18.6 % (11.5-15.2)
[2016-09-16 19:30] LABS: ANION GAP 25 mEq/L (8-16); CALCIUM 8.2 mg/dL (8.5-10.4); CARBON DIOXIDE 8 mEq/l (22-31); CHLORIDE 114 mEq/L (97-110); GLUCOSE 80 mg/dL (70-100); SODIUM 147 mEq/L (134-144)
[2016-09-16 19:41] LABS: GLOMERULAR FILTRATION RATE 3
[2016-09-16 19:42] LABS: POTASSIUM 8.2 mEq/L (3.5-5.2)
[2016-09-16] MEDS ORDERED: ONDANSETRON DISINTEGRATING 4 MG TAB PO PRN (19:52)
[2016-09-16] MEDS ORDERED: ONDANSETRON 4 MG/2 ML VIAL IVP PRN (19:52)
[2016-09-16] MEDS ORDERED: CALCIUM GLUCONATE 2 GM in D5W 50 ML IV ONE (19:54)
[2016-09-16] MEDS ORDERED: INSULIN REGULAR HUMAN 100 UNIT/ML IVP ONE (19:55)
[2016-09-16] MEDS ORDERED: D50W 25 GM/50 ML SYR IVP ONE (19:56)
--- NOTE | 2016-09-16 19:59 | CPEKG ---
Heart Rate: 50 RR Interval: 1200 P-R Interval: 172 QRSD Interval: 138 QT Interval: 516 QTC Interval: 471 P [place]: 53 QRS [place]: 75 T Wave [place]: 58 EKG Severity - ABNORMAL ECG - EKG Impression: SINUS RHYTHM EKG Impression: NONSPECIFIC INTRAVENTRICULAR CONDUCTION DELAY Electronically Signed By: Jutsice Carmen 16-Sep-2016 23:05:49
--- NOTE | 2016-09-16 20:52 | GHP ---
[f rep st] HISTORY AND PHYSICAL DATE OF ADMISSION: 09/16/2016 CHIEF COMPLAINT: Needs dialysis. HISTORY OF PRESENT ILLNESS: This 66-year-old man with end-stage renal disease, with no access to ou tpatient dialysis presents stating that he needs dialysis. He says that his last dialysis was 9 day s ago. He feels extremely tired, has no appetite, has swollen legs, has a pain in his left hip. He feels somewhat nauseous. PAST MEDICAL/SURGICAL HISTORY: 1. End-stage renal disease. 2. Coronary artery disease, on Plavix. 3. History of AFib with RVR. 4. History of GI bleed. 5. Hypertension. 6. Anemia of chronic renal failure. 7. Shingles. 8. Severe protein-calorie malnutrition. MEDICATIONS: Please see medication reconciliation. ALLERGIES: None. FAMILY HISTORY: No kidney disease. SOCIAL HISTORY: He lives in [place], he has lived here for 23 years. He is from [facility]. He d oes not drink or smoke. REVIEW OF SYSTEMS: A 10-point review of systems is conducted and is negative except per HPI. PHYSICAL EXAM: VITAL SIGNS: Blood pressure is 142/57, heart rate 59, respiration rate 14, saturati ng 100% on room air, temperature 36.3. GENERAL: The patient is a pleasant man who appears mildly u ncomfortable lying in bed. HEENT: Shows his pupils to be equal, round, reactive. Nonicteric scler ae. CARDIOVASCULAR: Shows a 2/6 systolic murmur. There are no rubs or gallops. He has a right-si ded tunneled dialysis catheter. PULMONARY: Lungs clear to auscultation bilaterally. ABDOMEN: Sof t, nontender, nondistended. SKIN: No rash. : Shows no Singh. NEUROLOGIC: Shows him to be tono rt and oriented x3, moving all extremities. PSYCHIATRIC: Shows normal mood and affect. EXTREMITIE S: Show 1+ bilateral lower extremity edema. LABS: Sodium is 147, potassium is 8.2, bicarb is 8, BUN is greater than 120. Hemoglobin is 8.4. DATA: 1. I discussed this with Dr. Carmen in the emergency department. 2. I reviewed his chart. He has had multiple admissions for the same. IMPRESSION AND PLAN: A 66-year-old man with end-stage renal disease, needs emergent dialysis. 1. End-stage renal disease, critical hyperkalemia: Renal has been consulted. Will dialyze him ton ight. In the meantime, I have given him insulin IV, an amp of D50 as well as calcium gluconate. We will monitor him on telemetry. 2. End-stage renal disease: Dialysis as above. 3. Coronary artery disease: Will continue his Plavix when medications are reconciled. 4. Severe anemia of chronic renal disease. 5. VTE prophylaxis: He is high risk. I will give him subcu heparin. 6. Code status is full. /[id number]/MODL
[2016-09-16] MEDS: HEPARIN 5,000 UNIT/0.5 ML SYR SC SCH (22:26)
[2016-09-17] MEDS: ACETAMINOPHEN 325 MG TAB PO PRN (02:57)
[2016-09-17] MEDS ORDERED: HEPARIN 50,000 UNIT/10 ML VIAL ONE (04:41)
[2016-09-17] MEDS: HEPARIN 5,000 UNIT/0.5 ML SYR SC SCH ×2 (05:27→15:04)
[2016-09-17 05:58] LABS: % IMMATURE GRANULYOCYTES 0.6 % (0.0-1.1); ABSOLUTE IMMATURE GRANULOCYTES 0.02 10^3/uL (0.00-0.10); ADD DIFF? NO; ADD MORPH? NO; ADD SCAN? NO; ATYPICAL LYMPHOCYTE FLAG 0 (0-99); FRAGMENT RBC FLAG 0 (0-99); HEMOGLOBIN 7.4 g/dL (13.7-17.5); LEFT SHIFT FLG 0 (0-99); LIPEMIA HEMOLYSIS FLAG 80 (0-99); MEAN CELL HEMOGLOBIN 30.6 pg (27.9-34.1); MEAN CELL HEMOGLOBIN CONCENTR. 33.6 g/dL (32.4-36.7); MEAN CELL VOLUME 90.9 fL (81.5-99.8); MEAN PLATELET VOLUME 11.4 fL (8.7-11.7); PLATELET CLUMPS FLAG 10 (0-99); PLATELET COUNT 77 10^3/uL (150-400); RED BLOOD CELL COUNT 2.42 10^6/uL (4.40-6.38); RED CELL DISTRIBUTION WIDTH 17.9 % (11.5-15.2)
[2016-09-17 06:33] LABS: ANION GAP 21 mEq/L (8-16); CALCIUM 8.6 mg/dL (8.5-10.4); CARBON DIOXIDE 15 mEq/l (22-31); CHLORIDE 105 mEq/L (97-110); GLOMERULAR FILTRATION RATE 6; GLUCOSE 65 mg/dL (70-100); SODIUM 141 mEq/L (134-144)
[2016-09-17 06:42] LABS: CREATININE 9.6 mg/dL (0.7-1.3)
--- NOTE | 2016-09-17 12:52 | SOAPPROG ---
SOAP Progress Note Assessment/Plan: Assessment: Patient well known to our service. Juan Manuel has ESRD without benefits. He works at [employer], and tends to keep working until he becomes too ill, and then report to ER. His residual function his diminished, and he has been coming in quite uremic and hyperkalemic after 7-10 day intervals. He has undergone his second dialysis today without complication. Will run again tomorrow. We are going to see if we can coordinate his work schedule with more frequent dialysis. Case management is to address. Plan: 09/17/16 12:49 Subjective: Weak Objective: Vital Signs Temp Pulse Resp BP Pulse Ox 36.4 C 59 L 16 138/91 H 99 09/17/16 06:50 09/17/16 06:50 09/17/16 06:50 09/17/16 06:50 09/17/16 06:50 Laboratory Results 09/17/16 04:49 09/17/16 04:49 09/16/16 09/17/16 09/18/16 05:59 05:59 05:59 Intake Total 410 Balance 410 Physical Exam - Physical Exam General Appearance: mild distress Neck: other (Catheter exit site ok) Respiratory: lungs clear Cardiac/Chest: regular rate, rhythm Abdomen: soft Extremities: pedal edema Neuro/Psych: oriented x 3 ICD10 Worksheet Patient Problems: Problems Problem Status Onset Hyperkalemia Acute Kidney failure Acute Abdominal pain Acute Acute renal failure Acute Acute upper GI bleed Acute Anemia Acute Anemia associated with acute blood loss Acute Diarrhea Acute End stage renal disease Acute Hyperkalemia Acute Hypertension Acute Hypocalcemia Acute Metabolic acidosis Acute Renal failure Acute Shingles (herpes zoster) polyneuropathy Acute
[2016-09-17] MEDS ORDERED: NITROGLYCERIN 0.4 MG BTL SL PRN (14:47)
--- NOTE | 2016-09-17 14:52 | HOSPPROG ---
Hospitalist Progress Note Assessment/Plan: # ESRD - HD again tomorrow; lytes much better # anemia of CKD # thrombocytopenia - hold SQH # CAD - no CP currently; not on anti-plt (hold regardless for low plts) # FCFT # hold SQH Subjective: s/p dialysis x 2 since yesterday; feels better; still sleeping; less LE edema Objective: Vital Signs Temp Pulse Resp BP Pulse Ox 36.4 C 59 L 16 138/91 H 99 09/17/16 06:50 09/17/16 06:50 09/17/16 06:50 09/17/16 06:50 09/17/16 06:50 Laboratory Results 09/17/16 04:49 09/17/16 04:49 09/16/16 09/17/16 09/18/16 05:59 05:59 05:59 Intake Total 410 Balance 410 - Physical Exam Constitutional: no apparent distress, other (sleeping) Cardiovascular: regular rate and rhythym, no murmur, rub, or gallop Respiratory: no respiratory distress, no rales or rhonchi, clear to auscultation Gastrointestinal: normoactive bowel sounds, soft, non-tender abdomen, no palpable masses ICD10 Worksheet Patient Problems: Problems Problem Status Onset Acute renal failure Acute Anemia Acute Abdominal pain Acute Hyperkalemia Acute Hypocalcemia Acute Renal failure Acute Hypertension Acute Acute upper GI bleed Acute Anemia associated with acute blood loss Acute End stage renal disease Acute Metabolic acidosis Acute Diarrhea Acute Shingles (herpes zoster) polyneuropathy Acute Kidney failure Acute Hyperkalemia Acute
[2016-09-17] MEDS ORDERED: ERGOCALCIFEROL 50,000 I.UNIT CAP PO SCH (15:00)
[2016-09-17] MEDS: SODIUM BICARBONATE 650 MG TAB PO SCH (20:59)
[2016-09-17] MEDS: PANTOPRAZOLE SODIUM 40 MG TAB PO SCH (20:59)
[2016-09-18] MEDS ORDERED: HEPARIN 50,000 UNIT/10 ML VIAL ONE (01:44)
[2016-09-18] MEDS: ATORVASTATIN CALCIUM 40 MG TAB PO SCH (08:13)
[2016-09-18] MEDS: SODIUM BICARBONATE 650 MG TAB PO SCH ×2 (08:13→22:17)
[2016-09-18] MEDS: PANTOPRAZOLE SODIUM 40 MG TAB PO SCH ×2 (08:14→22:18)
[2016-09-18] MEDS: CALCITRIOL 0.25 MCG CAP PO SCH (08:14)
[2016-09-18 09:12] LABS: ANION GAP 12 mEq/L (8-16); CALCIUM 7.5 mg/dL (8.5-10.4); CARBON DIOXIDE 23 mEq/l (22-31); CHLORIDE 103 mEq/L (97-110); CREATININE 6.9 mg/dL (0.7-1.3); GLOMERULAR FILTRATION RATE 8; GLUCOSE 94 mg/dL (70-100); POTASSIUM 5.1 mEq/L (3.5-5.2); SODIUM 138 mEq/L (134-144)
[2016-09-18 13:53] LABS: HEPATITIS Bs Ab QUANT <5.0 mIU/mL
[2016-09-18] MEDS: hydrALAZINE 25 MG TAB PO SCH (16:10)
--- NOTE | 2016-09-18 16:37 | HOSPPROG ---
Hospitalist Progress Note Assessment/Plan: # ESRD - HD today; lytes much better # anemia of CKD # thrombocytopenia - hold SQH # CAD - no CP currently; not on anti-plt (hold regardless for low plts) # FCFT # hold SQH # we will probably discharge tomorrow with plan for coming to the emergency department weekly for dialysis Subjective: tired after dialysis Objective: Vital Signs Temp Pulse Resp BP Pulse Ox 36.3 C 58 L 12 144/63 H 99 09/18/16 14:51 09/18/16 14:51 09/18/16 14:51 09/18/16 14:51 09/18/16 14:51 Laboratory Results 09/17/16 04:49 09/18/16 05:03 09/17/16 09/18/16 09/19/16 05:59 05:59 05:59 Intake Total 410 420 Balance 410 420 discussed with Renal - Physical Exam Constitutional: no apparent distress, appears nourished, not in pain Eyes: anicteric sclera, EOMI Ears, Nose, Mouth, Throat: moist mucous membranes, hearing normal Cardiovascular: regular rate and rhythym Respiratory: no respiratory distress, no rales or rhonchi, clear to auscultation Gastrointestinal: normoactive bowel sounds, soft, non-tender abdomen, no palpable masses Skin: warm Neurologic: AAOx3 Psychiatric: interacting appropriately, not anxious, not encephalopathic, thought process linear ICD10 Worksheet Patient Problems: Problems Problem Status Onset Hyperkalemia Acute Kidney failure Acute Abdominal pain Acute Acute renal failure Acute Acute upper GI bleed Acute Anemia Acute Anemia associated with acute blood loss Acute Diarrhea Acute End stage renal disease Acute Hyperkalemia Acute Hypertension Acute Hypocalcemia Acute Metabolic acidosis Acute Renal failure Acute Shingles (herpes zoster) polyneuropathy Acute
--- NOTE | 2016-09-18 20:08 | SOAPPROG ---
SOAP Progress Note Assessment/Plan: Assessment: 1. esrd: no benefits for outpt hd. 3rd consectutive hd today, feeling better, will repeat tomorrow. Should be able to d/c s/p hd tomorrow. 2. htn: uf on hd, cont meds 3. anemia: procrit Plan: 09/18/16 20:06 Subjective: uneventful hd earlier today with 2L uf. Feeling better. Objective: Vital Signs Temp Pulse Resp BP Pulse Ox 36.3 C 58 L 12 144/63 H 99 09/18/16 14:51 09/18/16 14:51 09/18/16 14:51 09/18/16 14:51 09/18/16 14:51 Laboratory Results 09/17/16 04:49 09/18/16 05:03 09/17/16 09/18/16 09/19/16 05:59 05:59 05:59 Intake Total 410 420 Balance 410 420 Physical Exam - Physical Exam General Appearance: no apparent distress Respiratory: decreased breath sounds Cardiac/Chest: regular rate, rhythm, other (no rub) Extremities: pedal edema (none) ICD10 Worksheet Patient Problems: Problems Problem Status Onset Hyperkalemia Acute Kidney failure Acute Abdominal pain Acute Acute renal failure Acute Acute upper GI bleed Acute Anemia Acute Anemia associated with acute blood loss Acute Diarrhea Acute End stage renal disease Acute Hyperkalemia Acute Hypertension Acute Hypocalcemia Acute Metabolic acidosis Acute Renal failure Acute Shingles (herpes zoster) polyneuropathy Acute
[2016-09-18] MEDS ORDERED: EPOETIN ALFA 10,000 UNIT/ML VIAL SC SCH (20:30)
[2016-09-19] MEDS ORDERED: HEPARIN 50,000 UNIT/10 ML VIAL ONE ×2 (01:02→20:00)
--- NOTE | 2016-09-19 08:57 | SOAPPROG ---
SOEDY Progress Note Assessment/Plan: Assessment: 1. ESRD. No outpatient dialysis benefits. Has had HD 3 consecutive days, plus a fourth today. OK from renal view to discharge after dialysis today. Continue to get labs drawn weekly as outpatient, return prn emergent indications. 2. HTN. Labile. May improve with dialysis. May need additional med titration. 3. Anemia. S/p procrit. Plan: 09/19/16 08:55 Subjective: Pt seen and examined on dialysis. No complaints. Wants to go home. Objective: Vital Signs Temp Pulse Resp BP Pulse Ox 36.9 C 62 14 152/66 H 98 09/19/16 03:47 09/19/16 03:47 09/19/16 03:47 09/19/16 03:47 09/19/16 03:47 Laboratory Results 09/17/16 04:49 09/18/16 05:03 09/18/16 09/19/16 09/20/16 05:59 05:59 05:59 Intake Total 420 350 Balance 420 350 ICD10 Worksheet Patient Problems: Problems Problem Status Onset Acute renal failure Acute Anemia Acute Abdominal pain Acute Hyperkalemia Acute Hypocalcemia Acute Renal failure Acute Hypertension Acute Acute upper GI bleed Acute Anemia associated with acute blood loss Acute End stage renal disease Acute Metabolic acidosis Acute Diarrhea Acute Shingles (herpes zoster) polyneuropathy Acute Kidney failure Acute Hyperkalemia Acute
[2016-09-19] MEDS: SODIUM BICARBONATE 650 MG TAB PO SCH (09:20)
[2016-09-19] MEDS: PANTOPRAZOLE SODIUM 40 MG TAB PO SCH (09:20)
[2016-09-19] MEDS: ACETAMINOPHEN 325 MG TAB PO PRN (10:24)
[2016-09-19 11:20] VITALS: BP 162/88; PULSE 72; RESP 16; TEMP 97.8; O2SAT 99
[2016-09-19] MEDS: hydrALAZINE 25 MG TAB PO SCH (13:43)
[2016-09-19] MEDS: ATORVASTATIN CALCIUM 40 MG TAB PO SCH (13:43)
[2016-09-19] MEDS: CALCITRIOL 0.25 MCG CAP PO SCH (13:43)
--- NOTE | 2016-09-19 16:07 | GDS ---
[f rep st] DISCHARGE SUMMARY DISCHARGE DIAGNOSES: 1. End-stage renal disease without dialysis benefits. 2. History of coronary artery disease. 3. History of atrial fibrillation with rapid ventricular response. 4. History of gastrointestinal bleed. 5. Hypertension. HISTORY: This is a 66-year-old male, who is not well known to us. He has end-stage renal disease, but does not have any dialysis benefits. He comes every week essentially for dialysis. HOSPITAL COURSE: Patient was admitted and had dialysis for a few times. At this point, I believe [facility] management is working on a plan to have him get outpatient dialysis here at the hospital. He is going to be discharged home today. /[id number]/MODL
== END 2016-09-19 17:54 | disposition home or self-care (01) | DRG 682 ==
LOC: OBSVTOIN 19:54 → F2W 20:30
PROVIDERS: ADMIT Student in an Organized Health Care Education/Training Program; ATTEND Student in an Organized Health Care Education/Training Program
PROC: 5A1D60Z (ICD-10-PCS; principal; 2016-09-16)
DX: I12.0 Hypertensive chronic kidney disease with stage 5 chronic kidney disease or end stage renal disease (principal); N18.6 End stage renal disease; I25.10 Atherosclerotic heart disease of native coronary artery without angina pectoris; I48.91 Unspecified atrial fibrillation; D63.1 Anemia in chronic kidney disease
CPT/HCPCS: 86704-90; 97161-GP; J0610; J0885; J1644

== ENCOUNTER 2016-09-26 09:59 | Observation (INO) | payer OTHER ==
[2016-09-26 10:12] VITALS: TEMP 98.2; O2SAT 98
[2016-09-26 10:32] LABS: % IMMATURE GRANULYOCYTES 0.5 % (0.0-1.1); ABSOLUTE IMMATURE GRANULOCYTES 0.03 10^3/uL (0.00-0.10); ADD DIFF? NO; ADD MORPH? YES; ADD SCAN? NO; ATYPICAL LYMPHOCYTE FLAG 0 (0-99); FRAGMENT RBC FLAG 50 (0-99); HEMATOCRIT 23.7 % (40.0-51.0); HEMOGLOBIN 7.7 g/dL (13.7-17.5); LEFT SHIFT FLG 0 (0-99); LIPEMIA HEMOLYSIS FLAG 80 (0-99); MEAN CELL HEMOGLOBIN 31.2 pg (27.9-34.1); MEAN CELL HEMOGLOBIN CONCENTR. 32.5 g/dL (32.4-36.7); MEAN PLATELET VOLUME 10.9 fL (8.7-11.7); PLATELET CLUMPS FLAG 10 (0-99); PLATELET COUNT 185 10^3/uL (150-400); RED BLOOD CELL COUNT 2.47 10^6/uL (4.40-6.38)
--- NOTE | 2016-09-26 10:33 | EDPHY ---
H & P Stated Complaint: Requesting dialysis Time Seen by Provider: 09/26/16 10:18 HPI/ROS: CHIEF COMPLAINT: Requesting dialysis HISTORY OF PRESENT ILLNESS: The patient presents to the emergency department requesting dialysis. He has a history of end-stage renal disease and is unable to obtain outpatient dialysis secondary to his insurance status. The patient reports he was last dialyzed 6 days ago. The patient does complain of mild hypertension this morning. The patient has had some increasing pedal edema over the past several days. The patient is also developed a right subconjunctival hemorrhage. The patient denies any complaints of acute headache , vision loss or abdominal pain. The patient has chronic shortness of breath which is not acutely worsened today. The patient reports he has been compliant with his regular outpatient medications. REVIEW OF SYSTEMS: A comprehensive 10 point review of systems is otherwise negative aside from elements mentioned in the history of present illness. 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 Exam Limitations: No limitations - Personal History Current Tetanus/Diphtheria Vaccine: Unsure Current Tetanus Diphtheria and Acellular Pertussis (TDAP): Unsure Tetanus Vaccine Date: 2010 - Medical/Surgical History Hx Asthma: No Hx Chronic Respiratory Disease: No Hx Diabetes: No Hx Cardiac Disease: Yes Hx Renal Disease: Yes Hx Cirrhosis: No Hx Alcoholism: No Hx HIV/AIDS: No Hx Splenectomy or Spleen Trauma: No Other PMH: gout, htn, hernia, anemia, cad, esophagitis, ulcer, renal failure, prn dialysis, heart stent, shingles - Social History Smoking Status: Former smoker - Physical Exam Exam: General Appearance: Alert, no acute distress, thin male Eyes: Pupils equal and round no pallor or injection, small subconjunctival hemorrhage noted in right eye ENT, Mouth: Mucous membranes moist Respiratory: There are no retractions, lungs are clear to auscultation Cardiovascular: Regular rate and rhythm Gastrointestinal: Abdomen is soft and nontender, no masses, bowel sounds normal Neurological: A&O, normal motor function, normal sensory exam, normal cranial nerves Skin: Warm and dry, no rashes Musculoskeletal: Neck is supple nontender Extremities: 1+ bilateral pedal edema Constitutional: Initial Vital Signs Temperature (C) 36.8 C 09/26/16 10:10 Heart Rate 77 09/26/16 10:10 Respiratory Rate 18 09/26/16 10:10 Blood Pressure 181/85 H 09/26/16 10:10 O2 Sat (%) 98 09/26/16 10:10 O2 Delivery Mode Room Air Allergies/Adverse Reactions: No Known Allergies Allergy (Verified 09/16/16 17:09) Home Medications: Medication Instructions Recorded Ergocalciferol [Vitamin D2 (*)] 50,000 unit PO Q7D 11/10/15 Calcitriol [Calcitriol (*)] 0.25 mcg PO DAILY #30 cap 12/20/15 Atorvastatin Calcium [Lipitor 40 80 mg PO DAILY 07/02/16 mg (*)] hydrALAZINE [Apresoline 50 mg (*)] 50 mg PO BID 07/02/16 Herbals/Supplements -Info Only 1 ea PO DAILY 09/17/16 Multivitamins [Multivitamin (*)] 1 each PO DAILY 09/17/16 Nitroglycerin [Nitrostat 0.4 mg 0.4 mg SL Q5M PRN 09/17/16 (*)] Pantoprazole Sodium [Protonix 40mg 40 mg PO BID 09/17/16 (*)] Sodium Bicarbonate [Na Bicarb] 650 mg PO BID 09/17/16 Sodium Polystyrene Sulf [Kionex 15 gm PO BID 09/17/16 SPS Powder (*)] amLODIPine BESYLATE [Norvasc 10 mg 10 mg PO DAILY 09/17/16 (*)] hydrALAZINE [Apresoline 50 mg (*)] 25 mg PO DAILY@12 09/17/16 Medical Decision Making ED Course/Re-evaluation: The patient presents to the ED requesting dialysis. He has no evidence of significant acidosis. Aside from mild hypertension he is hemodynamically stable. The patient is noted to have mild hyperkalemia. The rest of his laboratory studies are consistent with his chronic renal failure. The patient was taken for dialysis. The patient now has a care plan that he will be presenting to the ED to receive dialysis twice weekly. Patient is transferred to the dialysis unit for dialysis in the will be discharged from the unit. - Data Points Laboratory Results: Laboratory Results 09/26/16 10:20 09/26/16 10:20 09/26/16 09/26/16 10:20 10:20 WBC 6.10 10^3/uL 10^3/uL (3.80-9.50) RBC 2.47 10^6/uL L 10^6/uL (4.40-6.38) Hgb 7.7 g/dL L g/dL (13.7-17.5) Hct 23.7 % L % (40.0-51.0) MCV 96.0 fL fL (81.5-99.8) MCH 31.2 pg pg (27.9-34.1) MCHC 32.5 g/dL g/dL (32.4-36.7) RDW 21.1 % H % (11.5-15.2) Plt Count 185 10^3/uL 10^3/uL (150-400) MPV 10.9 fL fL (8.7-11.7) Neut % (Auto) 61.6 % % (39.3-74.2) Lymph % (Auto) 18.7 % % (15.0-45.0) Duval % (Auto) 11.8 % % (4.5-13.0) Eos % (Auto) 6.7 % % (0.6-7.6) Baso % (Auto) 0.7 % % (0.3-1.7) Nucleat RBC Rel Count 0.0 % % (0.0-0.2) Absolute Neuts (auto) 3.76 10^3/uL 10^3/uL (1.70-6.50) Absolute Lymphs (auto) 1.14 10^3/uL 10^3/uL (1.00-3.00) Absolute Monos (auto) 0.72 10^3/uL 10^3/uL (0.30-0.80) Absolute Eos (auto) 0.41 10^3/uL H 10^3/uL (0.03-0.40) Absolute Basos (auto) 0.04 10^3/uL 10^3/uL (0.02-0.10) Absolute Nucleated RBC 0.00 10^3/uL 10^3/uL (0-0.01) Immature Gran % 0.5 % % (0.0-1.1) Immature Gran # 0.03 10^3/uL 10^3/uL (0.00-0.10) Platelet Estimate ADEQUATE (ADEQ) Polychromasia 1+ H Microcytic Cells 1+ H Oval Macrocytes 1+ H Elliptocytes 1+ H Acanthocytes (Spur) 1+ H Keratocytes 1+ H Sodium 144 mEq/L mEq/L (134-144) Potassium 5.9 mEq/L H mEq/L (3.5-5.2) Chloride 103 mEq/L mEq/L (97-110) Carbon Dioxide 14 mEq/l L mEq/l (22-31) Anion Gap 27 mEq/L H mEq/L (8-16) BUN 160 mg/dL H* mg/dL (7-23) Creatinine 14.5 mg/dL H* mg/dL (0.7-1.3) Estimated GFR 3 Glucose 115 mg/dL H mg/dL (70-100) Calcium 7.9 mg/dL L mg/dL (8.5-10.4) Departure - Departure Disposition: To OP Cath/Surgery Clinical Impression: Chronic renal failure, Hyperkalemia, Hypertension Condition: Fair Instructions: End Stage Kidney Disease (ED) Additional Instructions: 1. Follow up as scheduled on Saturday and Saturday for dialysis. 2. Return to the ED for any difficulty breathing, chest pain, shortness of breath or other concerns.
[2016-09-26 10:34] LABS: RED CELL DISTRIBUTION WIDTH 21.1 % (11.5-15.2)
[2016-09-26 10:55] LABS: ANION GAP 27 mEq/L (8-16); CALCIUM 7.9 mg/dL (8.5-10.4); CARBON DIOXIDE 14 mEq/l (22-31); CHLORIDE 103 mEq/L (97-110); GLUCOSE 115 mg/dL (70-100); POTASSIUM 5.9 mEq/L (3.5-5.2); SODIUM 144 mEq/L (134-144)
[2016-09-26 10:59] LABS: ACANTHOCYTES 1+; ELLIPTOCYTES 1+; KERATOCYTES 1+; MACROCYTES 1+; MICROCYTES 1+; PLATELET ESTIMATE ADEQUATE (ADEQ); POLYCHROMASIA 1+
[2016-09-26 11:16] LABS: GLOMERULAR FILTRATION RATE 3
[2016-09-26 11:27] LABS: CREATININE 14.5 mg/dL (0.7-1.3)
[2016-09-26] MEDS ORDERED: EPOETIN ALFA 10,000 UNIT/ML VIAL SC ONE ×2 (13:00→14:30)
[2016-09-26 17:25] VITALS: BP 158/70; PULSE 72; RESP 16
[2016-09-28 14:22] LABS: HEPATITIS Bs Ab QUANT <5.0 mIU/mL
== END 2016-09-27 01:00 | disposition home or self-care (01) ==
LOC: F2N 14:46
PROVIDERS: ADMIT Student in an Organized Health Care Education/Training Program; ATTEND Student in an Organized Health Care Education/Training Program
PROC: 5A1D00Z (ICD-10-PCS; principal; 2016-09-26)
DX: N18.6 End stage renal disease (principal); Z99.2 Dependence on renal dialysis; H11.31 Conjunctival hemorrhage, right eye; E87.5 Hyperkalemia
CPT/HCPCS: 86704-90; J0885

== ENCOUNTER 2016-09-30 16:23 | Inpatient (IN) | payer MEDICAID, OTHER ==
--- NOTE | 2016-09-30 16:52 | EDPHY ---
HPI/HX/ROS/PE/MDM Narrative: CHIEF COMPLAINT: Needs dialysis. HPI: The patient is a 66-year-old male with a history of kidney failure who presents with abdominal pain. He is seen in the ED approximately every 2 weeks to receive dialysis as he has no access to outpatient care. He was last discharged from the hospital 3 days ago. He had dialysis 10 days ago and is due to receive it again. The pain today does not radiate. He denies fever, vomiting , diarrhea, or other complaints. REVIEW OF SYSTEMS: Aside from elements discussed in the HPI, a comprehensive 10-point review of systems was reviewed and is negative. PMH: Kidney failure, gout, hypertension, hernia, CAD, esophagitis. SOCIAL HISTORY: Former smoker. PHYSICAL EXAM: General: Patient is alert, in no acute distress. ENT: Mild scleral icterus. ENT inspection normal. Neck: Normal inspection. Full range of motion. Respiratory: No respiratory distress. Breath sounds normal bilaterally. Cardiovascular: Regular rate and rhythm. Strong peripheral pulses. Abdomen: Mild tenderness. There are no peritoneal signs. There are normal bowel sounds. Easily-reducible right-sided inguinal hernia. Chest: Normal inspection of dialysis port in right upper chest. Back: Normal to inspection. No tenderness to palpation. Skin: Normal color. No rash. Warm and dry. Extremities: Normal appearance. Full range of motion. 1+ pedal edema bilaterally. Neuro: Oriented x3. Normal motor function. Normal sensory function. Portions of this note were transcribed by an ED scribe. I personally performed the history, physical exam, and medical decision making; and confirm the accuracy of the information in the transcribed note. ED Course: Labs ordered and consistent with renal failure. K elevated at 6.6. Nephrology paged. [id number]: Consulted with Dr. Wolfe, nephrology. They are aware of the patient. MDM: This patient presents with acute volume overload, needing dialysis. I see no sign of infectious or traumatic process. He will be admitted to the hospital for urgent dialysis. - Data Points Laboratory Results: Laboratory Results 09/30/16 17:10 09/30/16 17:10 Sodium 141 mEq/L mEq/L (134-144) Potassium 6.6 mEq/L H* mEq/L (3.5-5.2) Chloride 102 mEq/L mEq/L (97-110) Carbon Dioxide 15 mEq/l L mEq/l (22-31) Anion Gap 24 mEq/L H mEq/L (8-16) BUN 135 mg/dL H* mg/dL (7-23) Creatinine 14.1 mg/dL H* mg/dL (0.7-1.3) Estimated GFR 4 Glucose 105 mg/dL H mg/dL (70-100) Calcium 8.2 mg/dL L mg/dL (8.5-10.4) General Time Seen by Provider: 09/30/16 16:40 Initial Vital Signs: Initial Vital Signs Temperature (C) 37.0 C 09/30/16 16:27 Heart Rate 76 09/30/16 16:27 Respiratory Rate 16 09/30/16 16:27 Blood Pressure 189/86 H 09/30/16 16:27 O2 Sat (%) 97 09/30/16 16:27 O2 Delivery Mode Room Air Allergies/Adverse Reactions: No Known Allergies Allergy (Verified 09/16/16 17:09) Home Medications: Medication Instructions Recorded Ergocalciferol [Vitamin D2 (*)] 50,000 unit PO Q7D 11/10/15 Calcitriol [Calcitriol (*)] 0.25 mcg PO DAILY #30 cap 12/20/15 Atorvastatin Calcium [Lipitor 40 80 mg PO DAILY 07/02/16 mg (*)] hydrALAZINE [Apresoline 50 mg (*)] 50 mg PO BID 07/02/16 Herbals/Supplements -Info Only 1 ea PO DAILY 09/17/16 Multivitamins [Multivitamin (*)] 1 each PO DAILY 09/17/16 Nitroglycerin [Nitrostat 0.4 mg 0.4 mg SL Q5M PRN 09/17/16 (*)] Pantoprazole Sodium [Protonix 40mg 40 mg PO BID 09/17/16 (*)] Sodium Bicarbonate [Na Bicarb] 650 mg PO BID 09/17/16 Sodium Polystyrene Sulf [Kionex 15 gm PO BID 09/17/16 SPS Powder (*)] amLODIPine BESYLATE [Norvasc 10 mg 10 mg PO DAILY 09/17/16 (*)] hydrALAZINE [Apresoline 50 mg (*)] 25 mg PO DAILY@12 09/17/16 Departure - Departure Disposition: [facility] Clinical Impression: Kidney failure, Hyperkalemia Condition: Fair Report Scribed for: Justice Carmen Report Scribed by: Slim Murray Date of Report: 09/30/16 Time of Report: 16:42
[2016-09-30 17:41] LABS: ANION GAP 24 mEq/L (8-16); CALCIUM 8.2 mg/dL (8.5-10.4); CARBON DIOXIDE 15 mEq/l (22-31); CHLORIDE 102 mEq/L (97-110); GLUCOSE 105 mg/dL (70-100); SODIUM 141 mEq/L (134-144)
[2016-09-30] MEDS ORDERED: HYOSCYAMINE SULFATE 0.125 MG TAB PO ONE (17:46)
[2016-09-30] MEDS ORDERED: LIDOCAINE 2% VISCOUS 15 ML UDCUP PO ONE (17:46)
[2016-09-30 17:51] LABS: CREATININE 14.1 mg/dL (0.7-1.3); GLOMERULAR FILTRATION RATE 4
[2016-09-30 17:53] LABS: POTASSIUM 6.6 mEq/L (3.5-5.2)
[2016-09-30] MEDS ORDERED: ONDANSETRON 4 MG/2 ML VIAL IVP PRN (18:40)
[2016-09-30] MEDS ORDERED: ONDANSETRON DISINTEGRATING 4 MG TAB PO PRN (18:40)
[2016-09-30] MEDS ORDERED: ACETAMINOPHEN 325 MG TAB PO PRN (18:40)
[2016-09-30] MEDS ORDERED: NITROGLYCERIN 0.4 MG BTL SL PRN (18:42)
[2016-09-30] MEDS ORDERED: SODIUM POLY SULF 15 GM/60 ML BOTTLE PO ONE (18:45)
--- NOTE | 2016-09-30 19:02 | PDGENHP ---
History and Physical - Chief Complaint ESRD - History of Present Illness Mr. Muro is a 66 yo M with ESRD with no outpatient dialysis unit due to lack of benefits who presented to ER with abdominal pain. Pt states that he has pain in his epigastric area that he believes is due to his ulcer. He also has some pain over his hernia. He states that in ER he had a bout of diarrhea and now his pain is a little less but not gone. He was going to present tomorrow morning for HD but came early due to the pain. He was last dialyzed on Saturday. History Information - Allergies/Home Medication List Allergies/Adverse Reactions: No Known Allergies Allergy (Verified 09/16/16 17:09) Home Medications: Ergocalciferol [Vitamin D2 (*)] 50,000 unit PO Q7D 11/10/15 [Last Taken 08/28/16 ] Atorvastatin Calcium [Lipitor 40 mg (*)] 80 mg PO DAILY 07/02/16 [Last Taken 09:00] hydrALAZINE [Apresoline 50 mg (*)] 50 mg PO BID 07/02/16 [Last Taken 09/02/16 09 :00] Herbals/Supplements -Info Only 1 ea PO DAILY 09/17/16 [Last Taken Unknown] Multivitamins [Multivitamin (*)] 1 each PO DAILY 09/17/16 [Last Taken Unknown] Nitroglycerin [Nitrostat 0.4 mg (*)] 0.4 mg SL Q5M PRN 09/17/16 [Last Taken Unknown] Pantoprazole Sodium [Protonix 40mg (*)] 40 mg PO BID 09/17/16 [Last Taken ] Sodium Bicarbonate [Na Bicarb] 650 mg PO BID 09/17/16 [Last Taken Unknown] Sodium Polystyrene Sulf [Kionex SPS Powder (*)] 15 gm PO BID 09/17/16 [Last Taken Unknown] amLODIPine BESYLATE [Norvasc 10 mg (*)] 10 mg PO DAILY 09/17/16 [Last Taken Unknown] hydrALAZINE [Apresoline 50 mg (*)] 25 mg PO DAILY@12 09/17/16 [Last Taken Unknown] I have personally reviewed and updated: medical history - Past Medical History coronary artery disease (Known coronary disease but has not undergone interventional cardiac catheterization), ESRD (Does not have access to outpatient hemodialysis), GI bleed, GERD (Anemia of chronic disease, H/O UGIB x2 (first on Plavix +ASA, then on ASA alone), esophagitis), hypertension Additional medical history: Anemia of chronic kidney disease; upper GI bleed in the setting of anti-platelet medications, has occurred while on single and double agent therapy; 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; esophagitis - Surgical History Additional surgical history: R IJ tunneled catheter - Family History Additional family history: Mother with CVA and HTN - Social History Smoking Status: Former smoker Additional social history: Currently living alone while his son is in [place] , has been alone for approximately 2 months and is unclear when his son is going to return Review of Systems ROS: 10pt was reviewed & negative except for what was stated in HPI & below Physical Exam Temp Pulse Resp BP Pulse Ox 37.1 C 77 18 179/81 H 93 09/30/16 18:00 09/30/16 18:00 09/30/16 18:00 09/30/16 18:00 09/30/16 18:00 Constitutional: no apparent distress, uncomfortable Eyes: PERRL, anicteric sclera, EOMI Ears, Nose, Mouth, Throat: moist mucous membranes, hearing normal Cardiovascular: regular rate and rhythym, edema (+1 edema BLE) Peripheral Pulses: 2+: dorsalis-pedis (R), dorsalis-pedis (L) Respiratory: no respiratory distress, no rales or rhonchi, clear to auscultation Gastrointestinal: other (Soft, nondistended, mild TTP over epigastric area) Skin: warm, no rashes or abrasions Musculoskeletal: full muscle strength, normal joint ROM Neurologic: AAOx3, CN II-XII Intact, No asterixes Psychiatric: interacting appropriately, not encephalopathic Lab Data & Imaging Review 09/30/16 17:10 09/30/16 17:10 Sodium 141 mEq/L (134-144) 09/30/16 17:10 Potassium 6.6 mEq/L (3.5-5.2) H* 09/30/16 17:10 Chloride 102 mEq/L (97-110) 09/30/16 17:10 Carbon Dioxide 15 mEq/l (22-31) L 09/30/16 17:10 Anion Gap 24 mEq/L (8-16) H 09/30/16 17:10 BUN 135 mg/dL (7-23) H* 09/30/16 17:10 Creatinine 14.1 mg/dL (0.7-1.3) H* 09/30/16 17:10 Estimated GFR 4 09/30/16 17:10 Glucose 105 mg/dL (70-100) H 09/30/16 17:10 Calcium 8.2 mg/dL (8.5-10.4) L 09/30/16 17:10 Assessment & Plan Assessment: Assessment/Plan: ESRD: pt does not have a dialysis unit as an outpatient due to lack of benefits. Plan is for him to present here on Mondays and Fridays for dialysis. - Will do HD today. - Will assess for HD tomorrow as well, otherwise may defer to Saturday per pre -established plan. Hyperkalemia: K 6.6, will modulate on HD. Anemia: will give epo today with HD. Thank you for the interesting consult. Nephrology will continue to follow, please call with any additional questions or concerns.
--- NOTE | 2016-09-30 19:19 | GHP ---
[f rep st] HISTORY AND PHYSICAL DATE OF ADMISSION: 09/30/2016 HISTORY OF PRESENT ILLNESS: The patient is a pleasant 66-year-old gentle with end-stage renal disea se and poor access for dialysis, who presents today with nausea and vomiting, as well as diarrhea. These are consistent symptoms with his previous need for dialysis. He says he has been eating and d rinking well. He also has had abdominal pain. He complains of a right inguinal hernia which he has had for years. He has been moving his bowels, having diarrhea. He has not been throwing up. He h as no other complaints. REVIEW OF SYSTEMS: A complete 10-point review of systems was conducted and was negative, except as in the HPI. PAST MEDICAL HISTORY: 1. End-stage renal disease. 2. Coronary artery disease on Plavix, although it is not on his most recent medication list. 3. History of AFib with RVR. 4. History of GI bleed. 5. Hypertension. 6. Anemia of chronic renal failure. 7. History of shingles. 8. Severe protein-calorie malnutrition. ALLERGIES: None. FAMILY HISTORY: Notable for no coronary disease. HOME MEDICATIONS: Amlodipine, atorvastatin, calcitriol, vitamin D3, subcu heparin, hydralazine, hyo scyamine, multivitamin, nitroglycerin, pantoprazole, sodium bicarb. He does not appear to be on Jarad vix anymore. PHYSICAL EXAMINATION: PRESENTING VITAL SIGNS: Temperature 37.1, blood pressure 179/81, pulse 77, b reathing 18 times a minute, 93% on room air. GENERAL: In no acute distress. HEENT: Sclerae anict feliz. Oropharynx clear. Mucous membranes are moist. NECK: Supple without lymphadenopathy or JVD. LUNGS: Clear to auscultation bilaterally. HEART: S1, S2. ABDOMEN: Soft, nontender, nondistend ed. LOWER EXTREMITIES: He does have evidence of a femoral hernia on the right. It is a bit tender , but it is certainly not exquisitely tender. He is lying down, so there are no attempts to reduce it. It is soft, not all firm. Lower extremities without edema. Calves are nontender. SKIN: With out rash. NEUROLOGIC: Nonfocal. LABS: Sodium 141, potassium 6.6, chloride 102, bicarb 15, BUN 135, creatinine 14.1, glucose 105. There is no imaging. I have summarized previous records. I discussed the case with Dr. Justice romero. ASSESSMENT AND PLAN: This is a 66-year-old gentleman with a history of endstage renal disease, here with need for dialysis and hyperkalemia. 1. Hyperkalemia. I have ordered an EKG and placed him on telemetry. I have taken care of the george ent a number of time. He tolerates this level of potassium well. I will give a dose of Kayexalate and monitor him on telemetry. 2. End-stage renal disease. The patient is in need for his dialysis, although I suspect it is not emergent and could be done tomorrow. Renal has been consulted. 3. Inguinal hernia. I believe that this is mild. I will check a venous lactate. 4. Prophylaxis. Subcu heparin indicated. DISPOSITION: Inpatient status. /[id number]/MODL
[2016-09-30 20:27] LABS: % IMMATURE GRANULYOCYTES 0.4 % (0.0-1.1); ABSOLUTE IMMATURE GRANULOCYTES 0.03 10^3/uL (0.00-0.10); ADD DIFF? NO; ADD MORPH? YES; ADD SCAN? NO; ATYPICAL LYMPHOCYTE FLAG 0 (0-99); FRAGMENT RBC FLAG 20 (0-99); HEMATOCRIT 23.4 % (40.0-51.0); HEMOGLOBIN 7.5 g/dL (13.7-17.5); LEFT SHIFT FLG 0 (0-99); LIPEMIA HEMOLYSIS FLAG 80 (0-99); MEAN CELL HEMOGLOBIN 30.2 pg (27.9-34.1); MEAN CELL HEMOGLOBIN CONCENTR. 32.1 g/dL (32.4-36.7); MEAN CELL VOLUME 94.4 fL (81.5-99.8); MEAN PLATELET VOLUME 11.1 fL (8.7-11.7); PLATELET CLUMPS FLAG 30 (0-99); PLATELET COUNT 100 10^3/uL (150-400); RED BLOOD CELL COUNT 2.48 10^6/uL (4.40-6.38)
[2016-09-30] MEDS ORDERED: EPOETIN ALFA 10,000 UNIT/ML VIAL SC SCH (20:30)
[2016-09-30] MEDS ORDERED: NS 1,000 ML IV SCH (20:30)
[2016-09-30 20:31] LABS: RED CELL DISTRIBUTION WIDTH 21.1 % (11.5-15.2)
[2016-09-30] MEDS ORDERED: SODIUM POLYSTYRENE SULF 454 GM POWDER PO SCH (21:00)
[2016-09-30 21:16] LABS: ACANTHOCYTES 1+; ECHINOCYTES 2+; MICROCYTES 2+; PLATELET ESTIMATE ADEQUATE (ADEQ); POLYCHROMASIA 1+; SCHISTOCYTES 2+
[2016-09-30] MEDS: SODIUM BICARBONATE 650 MG TAB PO SCH (22:45)
[2016-09-30] MEDS: HEPARIN 5,000 UNIT/0.5 ML SYR SC SCH (22:45)
[2016-09-30] MEDS: PANTOPRAZOLE SODIUM 40 MG TAB PO SCH (22:46)
[2016-10-01 03:56] LABS: INR 1.13 (0.83-1.16); PROTIME(PATIENT) 14.4 SEC (12.0-15.0)
[2016-10-01 03:57] LABS: APTT 31.1 SEC (23.0-38.0)
[2016-10-01 04:07] LABS: ANION GAP 13 mEq/L (8-16); CALCIUM 8.4 mg/dL (8.5-10.4); CARBON DIOXIDE 26 mEq/l (22-31); CHLORIDE 100 mEq/L (97-110); GLOMERULAR FILTRATION RATE 7; GLUCOSE 129 mg/dL (70-100); POTASSIUM 4.3 mEq/L (3.5-5.2); SODIUM 139 mEq/L (134-144)
[2016-10-01 04:09] LABS: CREATININE 7.6 mg/dL (0.7-1.3)
[2016-10-01] MEDS: HEPARIN 5,000 UNIT/0.5 ML SYR SC SCH ×2 (05:41→14:19)
[2016-10-01] MEDS: PANTOPRAZOLE SODIUM 40 MG TAB PO SCH (08:07)
[2016-10-01] MEDS: SODIUM BICARBONATE 650 MG TAB PO SCH (08:07)
[2016-10-01] MEDS ORDERED: ERGOCALCIFEROL 50,000 I.UNIT CAP PO SCH (09:00)
[2016-10-01] MEDS ORDERED: CALCITRIOL 0.25 MCG CAP PO SCH (09:00)
[2016-10-01] MEDS ORDERED: SODIUM POLY SULF 15 GM/60 ML BOTTLE PO SCH (09:00)
[2016-10-01] MEDS ORDERED: MULTIVITAMINS 1 EACH TAB PO SCH (09:00)
[2016-10-01] MEDS ORDERED: ATORVASTATIN CALCIUM 40 MG TAB PO SCH (09:00)
--- NOTE | 2016-10-01 11:09 | SOAPPROG ---
[facility] Progress Note Assessment/Plan: Assessment/Plan: ESRD: pt does not have benefits for regular outpatient dialysis. Now arranged that pt to come on Mondays and Wednesdays to ER for admission for HD only. - HD today. - Next HD on Saturday, if discharged then pt knows to come back on Saturday as already arranged. Hyperkalemia: improved with HD. Metabolic acidosis: improved with HD. Anemia: got epo yesterday. Subjective: No acute events overnight. Pt had HD yesterday, tolerated well. He denies any abdominal pain today. On HD again today. Objective: Vital Signs Temp Pulse Resp BP Pulse Ox 36.6 C 66 10 L 147/83 H 95 10/01/16 08:00 10/01/16 08:00 10/01/16 08:00 10/01/16 08:00 10/01/16 08:00 Laboratory Results 10/01/16 03:07 09/30/16 10/01/16 10/02/16 05:59 05:59 05:59 Intake Total 150 Balance 150 PT 14.4 SEC (12.0-15.0) 10/01/16 03:07 INR 1.13 (0.83-1.16) 10/01/16 03:07 General: alert and oriented, no acute distress Eyes; EOMI, PERRL OP: Clear CV: RRR Resp: nonlabored respirations Abd; Soft, NT Ext: +trace edema BLE Neuro: CN II-XII grossly intact, no asterixis Psych: cooperative, appropriate mood and affect Access; RIJ tunneled catheter ICD10 Worksheet Patient Problems: Problems Problem Status Onset Hyperkalemia Acute Kidney failure Acute Abdominal pain Acute Acute renal failure Acute Acute upper GI bleed Acute Anemia Acute Anemia associated with acute blood loss Acute Chronic renal failure Acute Diarrhea Acute End stage renal disease Acute Hyperkalemia Acute Hyperkalemia Acute Hyperkalemia Acute Hypertension Acute Hypocalcemia Acute Kidney failure Acute Metabolic acidosis Acute Renal failure Acute Shingles (herpes zoster) polyneuropathy Acute
[2016-10-01] MEDS ORDERED: HEPARIN 50,000 UNIT/10 ML VIAL ONE (13:53)
[2016-10-01 15:13] VITALS: BP 138/75; PULSE 69; RESP 18; TEMP 98; O2SAT 96
--- NOTE | 2016-10-01 15:30 | PDDCSUM ---
Discharge Summary Discharge Summary: DISCHARGE DIAGNOSES: Nausea vomiting diarrhea End-stage renal disease with acute uremia from lack of dialysis Hyperkalemia CONSULTANTS: Dr. Wolfe PROCEDURES: Hemodialysis HOSPITAL COURSE SUMMARY: This is 1 of many hospital admissions for this gentleman who has end-stage renal disease but due to his social circumstances does not have access to dialysis at an outpatient unit. He comes in here typically when he becomes nauseous and has vomiting and diarrhea. He is usually volume overloaded. At this time he comes in with nausea vomiting diarrhea volume overload and hyperkalemia but no respiratory distress. No change in mentation. He was to be treated with hemodialysis and responded very well to that without any complications or side effects. He is feeling much better now after 2 sessions of dialysis. We have arranged for him at this time to begin coming to the hospital twice weekly for dialysis on Mondays and Wednesdays in an outpatient setting. He will be admitted directly to the dialysis unit on the 2nd floor for outpatient sessions. I have encouraged the patient to be as compliant as possible with this and discussed how this will benefit him in both short-term symptom management as well as long-term health. MEDICATION CHANGES: None FOLLOW-UP PLAN: Return here for dialysis in 2 days Greater than 35 minutes bedside and care coordination time today
== END 2016-10-01 17:38 | disposition home or self-care (01) | DRG 640 ==
LOC: OBSVTOIN 18:42 → F2W 19:24
PROVIDERS: ADMIT Internal Medicine; ATTEND Internal Medicine
PROC: 5A1D60Z (ICD-10-PCS; principal; 2016-09-30)
DX: E87.5 Hyperkalemia (principal); N18.6 End stage renal disease; Z91.15 Patient's noncompliance with renal dialysis; E87.2 Acidosis; E43 Unspecified severe protein-calorie malnutrition; Z68.1 Body mass index [BMI] 19.9 or less, adult; R11.2 Nausea with vomiting, unspecified; R19.7 Diarrhea, unspecified; I12.0 Hypertensive chronic kidney disease with stage 5 chronic kidney disease or end stage renal disease; D63.1 Anemia in chronic kidney disease; I25.10 Atherosclerotic heart disease of native coronary artery without angina pectoris; M10.9 Gout, unspecified; I48.91 Unspecified atrial fibrillation; K40.90 Unilateral inguinal hernia, without obstruction or gangrene, not specified as recurrent; Z87.891 Personal history of nicotine dependence; Z79.01 Long term (current) use of anticoagulants; Z99.2 Dependence on renal dialysis; Z59.7 Insufficient social insurance and welfare support
CPT/HCPCS: J0885; J1644

== ENCOUNTER 2016-10-03 09:23 | Observation (INO) | payer MEDICAID, OTHER ==
[2016-10-03 09:31] VITALS: BP 184/90; PULSE 91; RESP 18; TEMP 98.1; O2SAT 98
--- NOTE | 2016-10-03 09:34 | EDPHY ---
HPI/HX/ROS/PE/MDM Narrative: CHIEF COMPLAINT: Needs dialysis. HPI: The patient is a 66-year-old male with a history of kidney failure who presents to receive dialysis. He is seen every 2 weeks in the ED to receive dialysis as he does not have access to outpatient means. He was last seen in the ED 3 days ago for abdominal pain. He has no other complaints today and reports feeling well. No chest pain, shortness of breath, or abdominal pain. REVIEW OF SYSTEMS: Aside from elements discussed in the HPI, a comprehensive 10-point review of systems was reviewed and is negative. PMH: Kidney failure, gout, hypertension, hernia, CAD, esophagitis. SOCIAL HISTORY: Former smoker. PHYSICAL EXAM: General: Patient is alert, in no acute distress. ENT: Eyes are normal to inspection. ENT inspection normal. Neck: Normal inspection. Full range of motion. Respiratory: No respiratory distress. Breath sounds normal bilaterally. Cardiovascular: Regular rate and rhythm. Strong peripheral pulses. Abdomen: The abdomen is nontender to palpation. There are no peritoneal signs. There are normal bowel sounds. Back: Normal to inspection. No tenderness to palpation. Skin: Normal color. No rash. Warm and dry. Extremities: Normal appearance. Full range of motion. Neuro: Oriented x3. Normal motor function. Normal sensory function. Portions of this note were transcribed by an ED scribe. I personally performed the history, physical exam, and medical decision making; and confirm the accuracy of the information in the transcribed note. ED Course: Labs ordered. Creatinine elevated at 8.3. Potassium normal at 4.4. 1040: Consulted with Dr. Negro, nephrology. They are aware of the patient. 1045: Consulted with Vicki Perez, hospitalist. She accepts admission for Dr. Russell. - Data Points Laboratory Results: Laboratory Results 10/03/16 09:38 10/03/16 09:38 10/03/16 10/03/16 09:38 09:38 WBC 5.29 10^3/uL 10^3/uL (3.80-9.50) RBC 2.53 10^6/uL L 10^6/uL (4.40-6.38) Hgb 7.8 g/dL L g/dL (13.7-17.5) Hct 24.3 % L % (40.0-51.0) MCV 96.0 fL fL (81.5-99.8) MCH 30.8 pg pg (27.9-34.1) MCHC 32.1 g/dL L g/dL (32.4-36.7) RDW 20.1 % H % (11.5-15.2) Plt Count 150 10^3/uL D 10^3/uL (150-400) MPV 10.0 fL fL (8.7-11.7) Neut % (Auto) 65.2 % % (39.3-74.2) Lymph % (Auto) 15.9 % % (15.0-45.0) [place] % (Auto) 7.9 % % (4.5-13.0) Eos % (Auto) 10.0 % H % (0.6-7.6) Baso % (Auto) 0.8 % % (0.3-1.7) Nucleat RBC Rel Count 0.0 % % (0.0-0.2) Absolute Neuts (auto) 3.45 10^3/uL 10^3/uL (1.70-6.50) Absolute Lymphs (auto) 0.84 10^3/uL L 10^3/uL (1.00-3.00) Absolute Monos (auto) 0.42 10^3/uL 10^3/uL (0.30-0.80) Absolute Eos (auto) 0.53 10^3/uL H 10^3/uL (0.03-0.40) Absolute Basos (auto) 0.04 10^3/uL 10^3/uL (0.02-0.10) Absolute Nucleated RBC 0.00 10^3/uL 10^3/uL (0-0.01) Immature Gran % 0.2 % % (0.0-1.1) Immature Gran # 0.01 10^3/uL 10^3/uL (0.00-0.10) Platelet Estimate ADEQUATE (ADEQ) Polychromasia 1+ H Microcytic Cells 1+ H Elliptocytes 1+ H Acanthocytes (Spur) 1+ H Sodium 142 mEq/L mEq/L (134-144) Potassium 4.4 mEq/L mEq/L (3.5-5.2) Chloride 101 mEq/L mEq/L (97-110) Carbon Dioxide 21 mEq/l L mEq/l (22-31) Anion Gap 20 mEq/L H mEq/L (8-16) BUN 71 mg/dL H mg/dL (7-23) Creatinine 8.3 mg/dL H* mg/dL (0.7-1.3) Estimated GFR 7 Glucose 107 mg/dL H mg/dL (70-100) Calcium 8.3 mg/dL L mg/dL (8.5-10.4) General Time Seen by Provider: 10/03/16 09:32 Initial Vital Signs: Initial Vital Signs Temperature (C) 36.7 C 10/03/16 09:25 Heart Rate 91 10/03/16 09:25 Respiratory Rate 18 10/03/16 09:25 Blood Pressure 184/90 H 10/03/16 09:25 O2 Sat (%) 98 10/03/16 09:25 O2 Delivery Mode Room Air Allergies/Adverse Reactions: No Known Allergies Allergy (Verified 10/03/16 09:30) Home Medications: Medication Instructions Recorded Ergocalciferol [Vitamin D2 (*)] 50,000 unit PO Q7D 11/10/15 Calcitriol [Calcitriol (*)] 0.25 mcg PO DAILY #30 cap 12/20/15 Atorvastatin Calcium [Lipitor 40 80 mg PO DAILY 07/02/16 mg (*)] hydrALAZINE [Apresoline 50 mg (*)] 50 mg PO BID 07/02/16 Herbals/Supplements -Info Only 1 ea PO DAILY 09/17/16 Multivitamins [Multivitamin (*)] 1 each PO DAILY 09/17/16 Nitroglycerin [Nitrostat 0.4 mg 0.4 mg SL Q5M PRN 09/17/16 (*)] Pantoprazole Sodium [Protonix 40mg 40 mg PO BID 09/17/16 (*)] Sodium Bicarbonate [Na Bicarb] 650 mg PO BID 09/17/16 Sodium Polystyrene Sulf [Kionex 15 gm PO BID 09/17/16 SPS Powder (*)] amLODIPine BESYLATE [Norvasc 10 mg 10 mg PO DAILY 09/17/16 (*)] hydrALAZINE [Apresoline 50 mg (*)] 25 mg PO DAILY@12 09/17/16 Departure - Departure Disposition: [facility] Acute Clinical Impression: Kidney failure Condition: Fair Referrals: NONE *PRIMARY CARE P,. [Primary Care Provider] - As per Instructions Report Scribed for: Justice Carmen Report Scribed by: Slim Murray Date of Report: 10/03/16 Time of Report: 09:37
[2016-10-03 09:56] LABS: % IMMATURE GRANULYOCYTES 0.2 % (0.0-1.1); ABSOLUTE IMMATURE GRANULOCYTES 0.01 10^3/uL (0.00-0.10); ADD DIFF? NO; ADD MORPH? YES; ADD SCAN? NO; ATYPICAL LYMPHOCYTE FLAG 0 (0-99); FRAGMENT RBC FLAG 0 (0-99); HEMATOCRIT 24.3 % (40.0-51.0); HEMOGLOBIN 7.8 g/dL (13.7-17.5); LEFT SHIFT FLG 0 (0-99); LIPEMIA HEMOLYSIS FLAG 80 (0-99); MEAN CELL HEMOGLOBIN 30.8 pg (27.9-34.1); MEAN CELL HEMOGLOBIN CONCENTR. 32.1 g/dL (32.4-36.7); PLATELET CLUMPS FLAG 0 (0-99); PLATELET COUNT 150 10^3/uL (150-400); RED BLOOD CELL COUNT 2.53 10^6/uL (4.40-6.38)
[2016-10-03 09:58] LABS: RED CELL DISTRIBUTION WIDTH 20.1 % (11.5-15.2)
[2016-10-03 10:14] LABS: ANION GAP 20 mEq/L (8-16); CALCIUM 8.3 mg/dL (8.5-10.4); CARBON DIOXIDE 21 mEq/l (22-31); CHLORIDE 101 mEq/L (97-110); GLOMERULAR FILTRATION RATE 7; GLUCOSE 107 mg/dL (70-100); POTASSIUM 4.4 mEq/L (3.5-5.2); SODIUM 142 mEq/L (134-144)
[2016-10-03 10:17] LABS: CREATININE 8.3 mg/dL (0.7-1.3)
[2016-10-03 10:25] LABS: PLATELET ESTIMATE ADEQUATE (ADEQ)
[2016-10-03 10:29] LABS: POLYCHROMASIA 1+
[2016-10-03 10:30] LABS: ACANTHOCYTES 1+; ELLIPTOCYTES 1+; MICROCYTES 1+
[2016-10-03] MEDS ORDERED: ONDANSETRON DISINTEGRATING 4 MG TAB PO PRN (12:12)
[2016-10-03] MEDS ORDERED: ACETAMINOPHEN 325 MG TAB PO PRN (12:12)
[2016-10-03] MEDS ORDERED: ONDANSETRON 4 MG/2 ML VIAL IVP PRN (12:12)
[2016-10-03] MEDS ORDERED: NITROGLYCERIN 0.4 MG BTL SL PRN (12:56)
[2016-10-03] MEDS ORDERED: ERGOCALCIFEROL 50,000 I.UNIT CAP PO SCH (13:00)
--- NOTE | 2016-10-03 14:11 | GHP ---
[f rep st] HISTORY AND PHYSICAL DATE OF ADMISSION: 10/03/2016 CHIEF COMPLAINT: Volume overload. HISTORY OF PRESENT ILLNESS: Patient is a 66-year-old male with history of end- stage renal disease without access to outpatient dialysis, CAD, and hypertension presenting today for need of dialysis. He was last seen in the emergency room 3 days ago for abdominal pain. Denies shortness of breath, chest pain, nausea, vomiting. He had 1 episode of diarrhea on Saturday. He has been compliant with all of his medications. REVIEW OF SYSTEMS: I completed a 10-point review of systems. Negative except as noted in HPI. PAST MEDICAL HISTORY: 1. End-stage renal disease. 2. CAD. 3. Atrial fibrillation with RVR July 2016. 4. History of upper GI bleed. 5. Hypertension. 6. Anemia of chronic disease. 7. Shingles. 8. Severe protein caloric malnutrition. PAST SURGICAL HISTORY: None. SOCIAL HISTORY: Lives alone in [place]. No tobacco, alcohol or illicits. Works at [employer]. FAMILY HISTORY: Mother with CVA. No diabetes or CAD. ALLERGIES: None. HOME MEDICATIONS: 1. Hydralazine 50 mg b.i.d. 2. Norvasc 10 mg daily. 3. Kayexalate 15 g b.i.d. 4. Sodium bicarb 650 mg b.i.d. 5. Protonix 40 mg daily. 6. Nitroglycerin p.r.n. 7. Multivitamin daily. 8. Ergocalciferol 50,000 units p.o. weekly. 9. Calcitriol 0.25 mcg daily. 10. Lipitor 40 mg daily. ASSESSMENT/PLAN: 1. End-stage renal disease without access to outpatient dialysis: Patient to undergo a session of dialysis today and will be discharged. 2. Metabolic acidosis secondary to #1. Will increase sodium bicarb to 2 tablets b.i.d. 3. Accelerated hypertension: Continue home hydralazine and Norvasc. 4. Anemia of chronic disease: Hemoglobin and hematocrit are stable. No evidence of bleeding. 5. History of coronary artery disease: Continue statin. Previously on Plavix and beta-bonifacio, but these not on current med list. Will review medications with patient again. 6. Hypocalcemia: Continue calcitriol. 7. Atrial fibrillation with rapid ventricular response: This was in July 2016. At that time, was seen by Cardiology and started on amiodarone in addition to his beta-bonifacio; however, these, again, are not on his home list. Will review with him. 8. Diet: Renal. 9. Deep vein thrombosis prophylaxis: Sequential compression devices. 10. Severe protein caloric malnutrition. Nutrition was consulted. 11. The patient warrants observation admission given end-stage renal disease and acidosis warranting HD. /[id number]/MODL MTDD
[2016-10-03] MEDS ORDERED: HEPARIN 50,000 UNIT/10 ML VIAL ONE (16:00)
--- NOTE | 2016-10-03 19:17 | GDS ---
[f rep st] DISCHARGE SUMMARY DISCHARGE DIAGNOSES: 1. End-stage renal disease. 2. Coronary artery disease. 3. Accelerated hypertension. 4. Atrial fibrillation. 5. History of gastrointestinal bleed. 6. Anemia of chronic disease. 7. History of shingles. 8. Severe protein caloric malnutrition. CONSULTATIONS: Renal. PROCEDURES: Hemodialysis x1. HISTORY OF PRESENT ILLNESS: The patient is a 66-year-old male with history of end-stage renal disease, without access to outpatient dialysis, CAD and hypertension, presenting today for need of dialysis. He is now receiving dialysis Mondays and Wednesdays. He was last seen in the emergency room 3 days ago for abdominal pain. He currently denies shortness of breath, chest pain, nausea or vomiting. HOSPITAL COURSE BY PROBLEM: 1. End-stage renal disease without routine access to outpatient hemodialysis. He is now receiving hemodialysis Mondays and Wednesdays. 2. Metabolic acidosis secondary to end-stage renal disease. Increase sodium bicarb to 1300 mg b.i.d. 3. Coronary artery disease. His last several home reconciliations do not include prior medications including Plavix, metoprolol, amiodarone. He cannot recall all his meds, but none have been discontinued per his report. Advised him to bring in his home medications at next visit so we can reconcile appropriately. 4. Atrial fibrillation. Presume he is taking amiodarone as previously prescribed. 5. Accelerated hypertension. Continue amlodipine and hydralazine. 6. Anemia of chronic disease. H and H are stable. No active bleeding. 7. Severe protein caloric malnutrition. Stable. Nutrition was consulted. DISPOSITION: Patient is stable for discharge. DISCHARGE MEDICATION: Increase sodium bicarb to 1300 mg b.i.d. Ensure at next hospitalization that patient's home medications are reconciled appropriately as I do not think all of his current medications have recently been included. /[id number]/MODL MTDD
[2016-10-03] MEDS ORDERED: SODIUM BICARBONATE 650 MG TAB PO SCH (21:00)
[2016-10-03] MEDS ORDERED: PANTOPRAZOLE SODIUM 40 MG TAB PO SCH (21:00)
[2016-10-04] MEDS ORDERED: Herbals/Supplements -Info Only PO SCH (09:00)
[2016-10-04] MEDS ORDERED: CALCITRIOL 0.25 MCG CAP PO SCH (09:00)
[2016-10-04] MEDS ORDERED: MULTIVITAMINS 1 EACH TAB PO SCH (09:00)
[2016-10-04] MEDS ORDERED: ATORVASTATIN CALCIUM 40 MG TAB PO SCH (09:00)
[2016-10-09] MEDS ORDERED: ERGOCALCIFEROL 50,000 I.UNIT CAP PO SCH (15:00)
== END 2016-10-03 16:01 | disposition home or self-care (01) ==
LOC: INTOOBSV 12:13 → F2N 12:13 → F3E 15:11
PROVIDERS: ADMIT Internal Medicine; ATTEND Internal Medicine
PROC: 5A1D00Z (ICD-10-PCS; principal; 2016-10-03)
DX: N18.6 End stage renal disease (principal); I12.0 Hypertensive chronic kidney disease with stage 5 chronic kidney disease or end stage renal disease; E87.2 Acidosis; I25.10 Atherosclerotic heart disease of native coronary artery without angina pectoris; I48.91 Unspecified atrial fibrillation; D63.1 Anemia in chronic kidney disease; E43 Unspecified severe protein-calorie malnutrition; Z99.2 Dependence on renal dialysis
CPT/HCPCS: 99285; G0378; J1644

== ENCOUNTER 2016-10-08 09:36 | Inpatient (IN) | payer MEDICAID, OTHER ==
--- NOTE | 2016-10-08 10:15 | EDPHY ---
H & P Stated Complaint: dialysis Time Seen by Provider: 10/08/16 09:46 HPI/ROS: CHIEF COMPLAINT: Here for dialysis HISTORY OF PRESENT ILLNESS: The patient presents the emergency department requesting dialysis. The patient is unable to receive outpatient dialysis secondary to insurance issues. Patient reports feeling increasing fatigue. He reports some mild loose stool over the past several days. The patient has been compliant with his regular medications. His last dialysis was on Saturday of last week. The patient denies acute shortness of breath. The patient denies significant weight gain. He denies additional complaints. REVIEW OF SYSTEMS: A comprehensive 10 point review of systems is otherwise negative aside from elements mentioned in the history of present illness. 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 Exam Limitations: No limitations - Personal History Tetanus Vaccine Date: 2010 - Medical/Surgical History Hx Asthma: No Hx Chronic Respiratory Disease: No Hx Diabetes: No Hx Cardiac Disease: Yes Hx Renal Disease: Yes Hx Cirrhosis: No Hx Alcoholism: No Hx HIV/AIDS: No Hx Splenectomy or Spleen Trauma: No Other PMH: gout, htn, hernia, anemia, cad, esophagitis, gastric ulcer, renal failure, dialysis, heart stent, shingles - Social History Smoking Status: Former smoker - Physical Exam Exam: General Appearance: Thin male, no acute distress, sleeping in bed Eyes: Pupils equal and round no pallor or injection ENT, Mouth: Mucous membranes moist Respiratory: There are no retractions, lungs are clear to auscultation Cardiovascular: Regular rate and rhythm Gastrointestinal: Abdomen is soft and nontender, no masses, bowel sounds normal Neurological: A&O, normal motor function, normal sensory exam, normal cranial nerves Skin: Warm and dry, no rashes Musculoskeletal: Neck is supple nontender Extremities: symmetrical, full range of motion Constitutional: Initial Vital Signs Temperature (C) 36.4 C 10/08/16 09:42 Heart Rate 71 10/08/16 09:42 Respiratory Rate 18 10/08/16 09:42 Blood Pressure 161/76 H 10/08/16 09:42 O2 Sat (%) 99 10/08/16 09:42 O2 Delivery Mode Room Air Allergies/Adverse Reactions: No Known Allergies Allergy (Verified 10/03/16 09:30) Home Medications: Medication Instructions Recorded Ergocalciferol [Vitamin D2 (*)] 50,000 unit PO TU 11/10/15 Calcitriol [Calcitriol (*)] 0.25 mcg PO DAILY #30 cap 12/20/15 Atorvastatin Calcium [Lipitor 40 80 mg PO DAILY 07/02/16 mg (*)] hydrALAZINE [Apresoline 50 mg (*)] 50 mg PO BID 07/02/16 Herbals/Supplements -Info Only 1 ea PO DAILY 09/17/16 Multivitamins [Multivitamin (*)] 1 each PO DAILY 09/17/16 Nitroglycerin [Nitrostat 0.4 mg 0.4 mg SL Q5M PRN 09/17/16 (*)] Pantoprazole Sodium [Protonix 40mg 40 mg PO BID 09/17/16 (*)] Sodium Polystyrene Sulf [Kionex 15 gm PO BID 09/17/16 SPS Powder (*)] amLODIPine BESYLATE [Norvasc 10 mg 10 mg PO DAILY 09/17/16 (*)] hydrALAZINE [Apresoline 50 mg (*)] 25 mg PO DAILY@12 09/17/16 Clopidogrel Bisulfate [Plavix] 75 mg PO DAILY #0 tablet 10/03/16 Metoprolol Succinate Xr [Toprol Xl 100 mg PO DAILY #0 tab.sr 10/03/16 100 mg (*)] Sodium Bicarbonate [Na Bicarb] 1,300 mg PO BID #120 tab 10/03/16 Medical Decision Making ED Course/Re-evaluation: The patient presents to the ED with evidence of acute uremia manifest with an elevated BUN greater than 120. The patient has mild hyperkalemia. The patient has no arrhythmia noted on his monitor in the ED. The patient will be admitted to the hospitalist service and received dialysis. The patient will be admitted to a monitored bed today. Consultation is made with Dr. Scott from the hospitalist service who will admit the patient Differential Diagnosis: Differential diagnosis considered includes uremia, fluid overload, acidosis, hyperkalemia - Data Points Laboratory Results: Laboratory Results 10/08/16 10:10 10/08/16 10:10 10/08/16 10/08/16 10:10 10:10 WBC 3.98 10^3/uL 10^3/uL (3.80-9.50) RBC 2.39 10^6/uL L 10^6/uL (4.40-6.38) Hgb 7.4 g/dL L g/dL (13.7-17.5) Hct 23.0 % L % (40.0-51.0) MCV 96.2 fL fL (81.5-99.8) MCH 31.0 pg pg (27.9-34.1) MCHC 32.2 g/dL L g/dL (32.4-36.7) RDW 19.7 % H % (11.5-15.2) Plt Count 131 10^3/uL L 10^3/uL (150-400) Sodium 142 mEq/L mEq/L (134-144) Potassium 6.1 mEq/L H mEq/L (3.5-5.2) Chloride 102 mEq/L mEq/L (97-110) Carbon Dioxide 17 mEq/l L mEq/l (22-31) Anion Gap 23 mEq/L H mEq/L (8-16) BUN 137 mg/dL H* mg/dL (7-23) Creatinine 14.9 mg/dL H* mg/dL (0.7-1.3) Estimated GFR 3 Glucose 118 mg/dL H mg/dL (70-100) Calcium 8.7 mg/dL mg/dL (8.5-10.4) Departure - Departure Disposition: [facility] Inpatient Acute Clinical Impression: Uremia, Hyperkalemia Condition: Fair
[2016-10-08 10:26] LABS: HEMOGLOBIN 7.4 g/dL (13.7-17.5); MEAN CELL HEMOGLOBIN CONCENTR. 32.2 g/dL (32.4-36.7); MEAN CELL VOLUME 96.2 fL (81.5-99.8); RED BLOOD CELL COUNT 2.39 10^6/uL (4.40-6.38); RED CELL DISTRIBUTION WIDTH 19.7 % (11.5-15.2)
[2016-10-08 10:35] LABS: ANION GAP 23 mEq/L (8-16); CALCIUM 8.7 mg/dL (8.5-10.4); CARBON DIOXIDE 17 mEq/l (22-31); CHLORIDE 102 mEq/L (97-110); GLUCOSE 118 mg/dL (70-100); POTASSIUM 6.1 mEq/L (3.5-5.2); SODIUM 142 mEq/L (134-144)
[2016-10-08 10:43] LABS: GLOMERULAR FILTRATION RATE 3
[2016-10-08 10:44] LABS: CREATININE 14.9 mg/dL (0.7-1.3)
--- NOTE | 2016-10-08 12:43 | PDGENHP ---
History and Physical - Chief Complaint ESRD - History of Present Illness Mr. Walton is a 66 yo M with ESRD who has no benefits to get outpatient dialysis who presents to ER for dialysis. Pt states he feels well, has no chest pain, no dyspnea, has mild swelling in legs but better than before. He did have some diarrhea this morning. He has no other complaints. History Information - Allergies/Home Medication List Allergies/Adverse Reactions: No Known Allergies Allergy (Verified 10/03/16 09:30) Home Medications: Ergocalciferol [Vitamin D2 (*)] 50,000 unit PO TU 11/10/15 [Last Taken 10/02/16] Atorvastatin Calcium [Lipitor 40 mg (*)] 80 mg PO DAILY 07/02/16 [Last Taken 09/21] hydrALAZINE [Apresoline 50 mg (*)] 50 mg PO BID 07/02/16 [Last Taken 10/08/16] Herbals/Supplements -Info Only 1 ea PO DAILY 09/17/16 [Last Taken 10/03/16] Multivitamins [Multivitamin (*)] 1 each PO DAILY 09/17/16 [Last Taken 10/03/16] Nitroglycerin [Nitrostat 0.4 mg (*)] 0.4 mg SL Q5M PRN 09/17/16 [Last Taken ] Pantoprazole Sodium [Protonix 40mg (*)] 40 mg PO BID 09/17/16 [Last Taken ] amLODIPine BESYLATE [Norvasc 10 mg (*)] 10 mg PO DAILY 09/17/16 [Last Taken 09/21] hydrALAZINE [Apresoline 50 mg (*)] 25 mg PO DAILY@12 09/17/16 [Last Taken ] Vit B Cmplx 3/Folic AC/C/Biot [Ev-Peyton Rx Tablet] 1 each PO DAILY 10/08/16 [ Last Taken 10/08/16] I have personally reviewed and updated: medical history - Past Medical History coronary artery disease (Known coronary disease but has not undergone interventional cardiac catheterization), ESRD (Does not have access to outpatient hemodialysis), GI bleed, GERD (Anemia of chronic disease, H/O UGIB x2 (first on Plavix +ASA, then on ASA alone), esophagitis), hypertension Additional medical history: Anemia of chronic kidney disease; upper GI bleed in the setting of anti-platelet medications, has occurred while on single and double agent therapy; 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; esophagitis - Surgical History Additional surgical history: R IJ tunneled catheter - Family History Additional family history: Mother with CVA and HTN - Social History Smoking Status: Former smoker Additional social history: Currently living alone while his son is in [place] , has been alone for approximately 2 months and is unclear when his son is going to return Review of Systems ROS: 10pt was reviewed & negative except for what was stated in HPI & below Physical Exam Temp Pulse Resp BP Pulse Ox 36.4 C 62 16 152/78 H 98 10/08/16 12:15 10/08/16 12:15 10/08/16 12:15 10/08/16 12:15 10/08/16 12:15 Constitutional: no apparent distress, appears nourished, not in pain Eyes: PERRL, EOMI Ears, Nose, Mouth, Throat: moist mucous membranes, hearing normal Cardiovascular: regular rate and rhythym, pulses symmetric bilaterally Peripheral Pulses: 2+: dorsalis-pedis (R), dorsalis-pedis (L) Respiratory: no respiratory distress, no rales or rhonchi, clear to auscultation Gastrointestinal: normoactive bowel sounds, soft, non-tender abdomen Skin: warm, No rash Musculoskeletal: full muscle strength, no joint effusions Neurologic: AAOx3, CN II-XII Intact, No asterixes Psychiatric: interacting appropriately, not anxious, not encephalopathic Lab Data & Imaging Review 10/08/16 10:10 10/08/16 10:10 WBC 3.98 10^3/uL (3.80-9.50) 10/08/16 10:10 RBC 2.39 10^6/uL (4.40-6.38) L 10/08/16 10:10 Hgb 7.4 g/dL (13.7-17.5) L 10/08/16 10:10 Hct 23.0 % (40.0-51.0) L 10/08/16 10:10 MCV 96.2 fL (81.5-99.8) 10/08/16 10:10 MCH 31.0 pg (27.9-34.1) 10/08/16 10:10 MCHC 32.2 g/dL (32.4-36.7) L 10/08/16 10:10 RDW 19.7 % (11.5-15.2) H 10/08/16 10:10 Plt Count 131 10^3/uL (150-400) L 10/08/16 10:10 Sodium 142 mEq/L (134-144) 10/08/16 10:10 Potassium 6.1 mEq/L (3.5-5.2) H 10/08/16 10:10 Chloride 102 mEq/L (97-110) 10/08/16 10:10 Carbon Dioxide 17 mEq/l (22-31) L 10/08/16 10:10 Anion Gap 23 mEq/L (8-16) H 10/08/16 10:10 BUN 137 mg/dL (7-23) H* 10/08/16 10:10 Creatinine 14.9 mg/dL (0.7-1.3) H* 10/08/16 10:10 Estimated GFR 3 10/08/16 10:10 Glucose 118 mg/dL (70-100) H 10/08/16 10:10 Calcium 8.7 mg/dL (8.5-10.4) 10/08/16 10:10 Assessment & Plan Assessment: Assessment/Plan: ESRD: pt does not have benefits to get regular outpatient dialysis. He comes here on Mondays and Wednesdays for scheduled HD. - Will do HD today. - Expect that he will be ok for discharge after HD. Hyperkalemia: Will modulate with HD. Anemia: will give epo on HD today. Metabolic acidosis: will modulate on HD. Thank you for the interesting consult. Nephrology will continue to follow, please call if you have any additional questions or concerns.
[2016-10-08] MEDS ORDERED: EPOETIN ALFA 10,000 UNIT/ML VIAL SC ONE (13:00)
--- NOTE | 2016-10-08 13:43 | PDGENHP ---
History and Physical - Chief Complaint Acute diarrhea - History of Present Illness PCP: [facility] HPI: 66-year-old male presents with acute diarrhea characterized as brown, nonbloody, nonmelanotic stool with onset of symptoms on the day of presentation , 1 episode. Associated with edema located in the bilateral lower extremities. Also associated with discomfort located in the mid epigastric area, occurring approximately 1 week ago, alleviated by bowel movement. Patient has otherwise been taking all of his home medications and denies any chest pain or shortness of breath. History Information - Allergies/Home Medication List Allergies/Adverse Reactions: No Known Allergies Allergy (Verified 10/03/16 09:30) Home Medications: Ergocalciferol [Vitamin D2 (*)] 50,000 unit PO TU 11/10/15 [Last Taken 10/02/16] Atorvastatin Calcium [Lipitor 40 mg (*)] 80 mg PO DAILY 07/02/16 [Last Taken 09/21] hydrALAZINE [Apresoline 50 mg (*)] 50 mg PO BID 07/02/16 [Last Taken 10/08/16] Herbals/Supplements -Info Only 1 ea PO DAILY 09/17/16 [Last Taken 10/03/16] Multivitamins [Multivitamin (*)] 1 each PO DAILY 09/17/16 [Last Taken 10/03/16] Nitroglycerin [Nitrostat 0.4 mg (*)] 0.4 mg SL Q5M PRN 09/17/16 [Last Taken ] Pantoprazole Sodium [Protonix 40mg (*)] 40 mg PO BID 09/17/16 [Last Taken ] amLODIPine BESYLATE [Norvasc 10 mg (*)] 10 mg PO DAILY 09/17/16 [Last Taken 09/21] hydrALAZINE [Apresoline 50 mg (*)] 25 mg PO DAILY@12 09/17/16 [Last Taken ] Vit B Cmplx 3/Folic AC/C/Biot [Ev-Peyton Rx Tablet] 1 each PO DAILY 10/08/16 [ Last Taken 10/08/16] I have personally reviewed and updated: family history, medical history, social history, surgical history - Past Medical History coronary artery disease (Known coronary disease but has not undergone interventional cardiac catheterization), ESRD (Does not have access to outpatient hemodialysis), GI bleed, GERD (Anemia of chronic disease, H/O UGIB x2 (first on Plavix +ASA, then on ASA alone), esophagitis), hypertension Additional medical history: Anemia of chronic kidney disease; upper GI bleed in the setting of anti-platelet medications, has occurred while on single and double agent therapy; 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; esophagitis - Surgical History Additional surgical history: R IJ tunneled catheter - Family History Additional family history: Mother with CVA and HTN - Social History Smoking Status: Former smoker Alcohol Use: None Drug Use: None Additional social history: Continues to work on non-HD days Review of Systems ROS: 10pt was reviewed & negative except for what was stated in HPI & below Cardiac: Reports: edema Gastrointestinal: Reports: abdominal pain, diarrhea Physical Exam Temp Pulse Resp BP Pulse Ox 36.4 C 62 16 152/78 H 98 10/08/16 12:15 10/08/16 12:15 10/08/16 12:15 10/08/16 12:15 10/08/16 12:15 Constitutional: no apparent distress, not in pain, chronically ill appearing, No uncomfortable Eyes: PERRL, anicteric sclera, EOMI Ears, Nose, Mouth, Throat: moist mucous membranes, hearing normal, ears appear normal, no oral mucosal ulcers Cardiovascular: regular rate and rhythym, systolic murmur (106 at all valve location), edema (1+ bilateral lower extremity), No irregularly irregular, No tachycardia Respiratory: no respiratory distress, no rales or rhonchi, clear to auscultation Gastrointestinal: normoactive bowel sounds, soft, non-tender abdomen, no palpable masses Skin: other (No erythema, no induration around the hemodialysis catheter site) Neurologic: AAOx3, sensation intact bilaterally, No weakness Psychiatric: interacting appropriately, not anxious, not encephalopathic, thought process linear Lab Data & Imaging Review 10/08/16 10:10 10/08/16 10:10 WBC 3.98 10^3/uL (3.80-9.50) 10/08/16 10:10 RBC 2.39 10^6/uL (4.40-6.38) L 10/08/16 10:10 Hgb 7.4 g/dL (13.7-17.5) L 10/08/16 10:10 Hct 23.0 % (40.0-51.0) L 10/08/16 10:10 MCV 96.2 fL (81.5-99.8) 10/08/16 10:10 MCH 31.0 pg (27.9-34.1) 10/08/16 10:10 MCHC 32.2 g/dL (32.4-36.7) L 10/08/16 10:10 RDW 19.7 % (11.5-15.2) H 10/08/16 10:10 Plt Count 131 10^3/uL (150-400) L 10/08/16 10:10 Sodium 142 mEq/L (134-144) 10/08/16 10:10 Potassium 6.1 mEq/L (3.5-5.2) H 10/08/16 10:10 Chloride 102 mEq/L (97-110) 10/08/16 10:10 Carbon Dioxide 17 mEq/l (22-31) L 10/08/16 10:10 Anion Gap 23 mEq/L (8-16) H 10/08/16 10:10 BUN 137 mg/dL (7-23) H* 10/08/16 10:10 Creatinine 14.9 mg/dL (0.7-1.3) H* 10/08/16 10:10 Estimated GFR 3 10/08/16 10:10 Glucose 118 mg/dL (70-100) H 10/08/16 10:10 Calcium 8.7 mg/dL (8.5-10.4) 10/08/16 10:10 Assessment & Plan Assessment: 66-year-old male presents with acute hyperkalemia and uremia in the setting of end-stage renal disease Plan: 1. Hyperkalemia. Acute, requiring emergent hemodialysis given underlying end- stage renal disease 2. Uremia. With GI symptoms, dialysis required 3. Metabolic acidosis. Acute, anion gap, secondary to uremia, dialyzed now 4. Anemia. Secondary to chronic kidney disease, will receive Depo now 5. Hypocalcemia. Chronic, secondary to secondary hyperparathyroidism in the setting of end-stage renal disease, continue on high-dose vitamin D and supplements, current calcium level 8.7 secondary to active treatment 6. Chronic coronary artery disease. Continue home medications 7. Chronic hypertension. Continue home medications 8. End-stage renal disease. Emergent hemodialysis required as outlined above, PCU for ongoing telemetry monitoring Diet. Renal Prophylaxis. Moderate risk patient, farm contraindicated given bleed Code. Full Disposition. Anticipated discharge uncertain this time, pending stabilization of issues as outlined above, admits reasonable medical necessity for emergent hemodialysis with acute hyperkalemia, uremia, metabolic acidosis.
[2016-10-08] MEDS ORDERED: ONDANSETRON DISINTEGRATING 4 MG TAB PO PRN (13:51)
[2016-10-08] MEDS ORDERED: ONDANSETRON 4 MG/2 ML VIAL IVP PRN (13:51)
[2016-10-08] MEDS ORDERED: ACETAMINOPHEN 325 MG TAB PO PRN (13:51)
[2016-10-08] MEDS ORDERED: NITROGLYCERIN 0.4 MG BTL SL PRN (13:53)
[2016-10-08] MEDS: PANTOPRAZOLE SODIUM 40 MG TAB PO SCH (20:32)
[2016-10-09 04:46] LABS: ALBUMIN 3.7 g/dL (3.5-5.0); ANION GAP 15 mEq/L (8-16); CALCIUM 8.5 mg/dL (8.5-10.4); CARBON DIOXIDE 22 mEq/l (22-31); CHLORIDE 101 mEq/L (97-110); CREATININE 7.5 mg/dL (0.7-1.3); GLOMERULAR FILTRATION RATE 7; GLUCOSE 110 mg/dL (70-100); POTASSIUM 5.3 mEq/L (3.5-5.2); SODIUM 138 mEq/L (134-144)
[2016-10-09] MEDS ORDERED: FOLIC ACID PO SCH (09:00)
[2016-10-09] MEDS ORDERED: VITAMIN B COMPLEX 1 EA CAP/TAB PO SCH (09:00)
[2016-10-09] MEDS ORDERED: MULTIVITAMINS 1 EACH TAB PO SCH (09:00)
[2016-10-09] MEDS ORDERED: ASCORBIC ACID PO SCH (09:00)
[2016-10-09] MEDS ORDERED: METOPROLOL SUCCINATE XR 100 MG TAB PO SCH (09:00)
[2016-10-09] MEDS ORDERED: ATORVASTATIN CALCIUM 40 MG TAB PO SCH (09:00)
[2016-10-09] MEDS ORDERED: VITAMIN B COMPLEX PO SCH (09:00)
[2016-10-09] MEDS ORDERED: Herbals/Supplements -Info Only PO SCH (09:00)
[2016-10-09] MEDS ORDERED: BIOTIN PO SCH (09:00)
[2016-10-09] MEDS: PANTOPRAZOLE SODIUM 40 MG TAB PO SCH (09:03)
[2016-10-09] MEDS ORDERED: CALCIUM CARBONATE 500 MG TAB PO SCH (10:00)
--- NOTE | 2016-10-09 11:04 | SOAPPROG ---
JACQUELINE Progress Note Assessment/Plan: Assessment: 1. ESRD without benefits HD today then DC. He will need to return via ER and have justified emergent reason for HD in order to gain admission and HD. He looks good and is feeling good today. 2. Anemia Stable 3. BP Stable Subjective: Doing ok Objective: Vital Signs Temp Pulse Resp BP Pulse Ox 37.2 C 63 13 158/71 H 95 10/09/16 07:24 10/09/16 07:24 10/09/16 07:24 10/09/16 07:24 10/09/16 07:24 Laboratory Results 10/09/16 03:12 10/08/16 10/09/16 10/10/16 05:59 05:59 05:59 Intake Total 950 Balance 950 Physical Exam - Physical Exam General Appearance: alert, no apparent distress Neck: other (line site ok) Respiratory: lungs clear Cardiac/Chest: regular rate, rhythm, systolic murmur Extremities: normal inspection Neuro/Psych: oriented x 3 ICD10 Worksheet Patient Problems: Problems Problem Status Onset Hyperkalemia Acute Uremia Acute Abdominal pain Acute Acute renal failure Acute Acute upper GI bleed Acute Anemia Acute Anemia associated with acute blood loss Acute Chronic renal failure Acute Diarrhea Acute End stage renal disease Acute Hyperkalemia Acute Hyperkalemia Acute Hyperkalemia Acute Hyperkalemia Acute Hypertension Acute Hypocalcemia Acute Kidney failure Acute Kidney failure Acute Kidney failure Acute Metabolic acidosis Acute Renal failure Acute Shingles (herpes zoster) polyneuropathy Acute
[2016-10-09 12:07] VITALS: BP 141/70; PULSE 64; RESP 12; TEMP 98.2; O2SAT 97
[2016-10-09] MEDS ORDERED: ERGOCALCIFEROL 50,000 I.UNIT CAP PO SCH ×2 (13:53→14:18)
--- NOTE | 2016-10-09 15:10 | PDDCSUM ---
Discharge Summary Discharge Summary: DISCHARGE SUMMARY FOLLOW-UP ITEMS: Patient should continue to follow up at [facility] and have routine chemistry labs DATE OF ADMISSION: 10/08/2016 DATE OF DISCHARGE: 10/09/2016 DISCHARGE DIAGNOSES: 1. Acute hyperkalemia 2. Acute uremia 3. Acute metabolic acidosis 4. Anemia of chronic kidney disease 5. Chronic hypocalcemia 6. Chronic coronary artery disease 7. Chronic hypertension 8. End-stage renal disease CONSULTATIONS: Nephrology PROCEDURES / IMAGING: None CHIEF COMPLAINT: Nausea vomiting SUBJECTIVE: Patient is feeling well at time of discharge PHYSICAL EXAM ON DISCHARGE: Systolic blood pressure is 140, heart rate 60, afebrile overnight, satting well on room air, lungs are clear to auscultation bilaterally LABS ON DISCHARGE: Potassium 5.3, creatinine 7.5, BUN 62, these labs were drawn prior to dialysis HOSPITAL COURSE BY PROBLEM: 1. Acute hyperkalemia. Secondary to end-stage renal disease and no access to outpatient dialysis, received emergent hemodialysis and experience correction. He was monitored on telemetry in the PCU. 2. Acute uremia. Patient's symptoms of nausea and vomiting most likely uremic symptoms the setting of a BUN greater than 120. This was secondary to no access to outpatient dialysis, and was corrected with emergent hemodialysis. 3. Acute metabolic acidosis. Secondary to end-stage renal disease and no access to hemodialysis, corrected with dialysis. 4. Anemia of chronic kidney disease. No evidence of acute blood loss, hemoglobin stable, received 1 dose of Depo. 5. Chronic hypocalcemia. Secondary to secondary hyperparathyroidism in the setting of end-stage renal disease, patient has been continued on high-dose vitamin-D as well as increased calcium supplements to 4 tabs daily. 6. Chronic coronary artery disease. No anginal symptoms, continued on his home medications 7. Chronic hypertension. He was continued on all of his home medications. 8. End-stage renal disease. Patient required emergent hemodialysis for the issues outlined above. Given that he has no access to outpatient hemodialysis, he will return to our emergency department when he begins experiencing uremic symptoms and will be admitted for inpatient hemodialysis on an emergent basis. DISCHARGE MEDICATIONS: Please see official discharge medication reconciliation sheet in chart , all of his home medications. DISCHARGE INSTRUCTIONS: Please return to the emergency department when he began experiencing signs or symptoms of acute volume overload, acute uremia. Patient's clinical status rapidly improved status post 2 sessions of hemodialysis and he recovered more rapidly than initially anticipated secondary to the highly efficient expeditious care of his nephrology team, hospitalist, nursing staff.
[2016-10-09] MEDS ORDERED: HEPARIN 50,000 UNIT/10 ML VIAL ONE (18:00)
== END 2016-10-09 19:22 | disposition home or self-care (01) | DRG 682 ==
LOC: OBSVTOIN 10:49 → F2W 12:01
PROVIDERS: ADMIT Internal Medicine; ATTEND Internal Medicine
PROC: 5A1D60Z (ICD-10-PCS; principal; 2016-10-08)
DX: I12.0 Hypertensive chronic kidney disease with stage 5 chronic kidney disease or end stage renal disease (principal); N18.6 End stage renal disease; E87.2 Acidosis; E87.5 Hyperkalemia; E83.51 Hypocalcemia; D63.1 Anemia in chronic kidney disease; I25.10 Atherosclerotic heart disease of native coronary artery without angina pectoris; Z59.7 Insufficient social insurance and welfare support
CPT/HCPCS: J0885; J1644

== ENCOUNTER 2016-10-15 12:13 | Inpatient (IN) | payer OTHER ==
--- NOTE | 2016-10-15 13:28 | EDPHY ---
HPI/HX/ROS/PE/MDM Narrative: CHIEF COMPLAINT: Peripheral edema, needs dialysis. HISTORY OF PRESENT ILLNESS: The patient is a 66-year-old male with a history of end stage renal disease who presents for dialysis. His only complaints today are high blood pressure and peripheral edema. He is seen every 1-2 weeks in the ER to receive dialysis as he has no access to outpatient care. He was last dialyzed 6 days ago. No fever, chills, chest pain, shortness of breath, palpitations, vomiting, diarrhea, urinary complaints, headache, lightheadedness. He has been compliant with his metoprolol. REVIEW OF SYSTEMS: Aside from elements discussed in the HPI, a comprehensive 10-point review of systems was reviewed and is negative. PAST MEDICAL HISTORY: Hypertension, CAD, GERD, end stage renal disease, shingles. SOCIAL HISTORY: Former smoker, lives alone, works at [employer]. VITAL SIGNS: Reviewed by me GENERAL: Well-developed, well-nourished, resting comfortably in no respiratory distress. HEENT: Atraumatic. Eyes: No icterus, no injection. Mouth: moist mucous membranes. No erythema or lesions. Neck: supple with no adenopathy. LUNGS: Clear to auscultation bilaterally, no wheezes, rhonchi or rales. CARDIAC: Regular rate and rhythm, no rubs, murmurs or gallops. CHEST: Shiley catheter in place in right chest. ABDOMEN: Soft, nontender, nondistended, bowel sounds normal. BACK: No CVA tenderness. Dark skin coloration left lumbar spine radiating around to front. EXTREMITIES: No trauma. Range of motion is normal throughout. Trace to 1+ pitting edema bilaterally. NEURO: Alert and oriented, grossly nonfocal. SKIN: Warm and dry, no rash. PSYCHIATRIC: Normal mentation, no agitation. Portions of this note were transcribed by a medical illustrator. I personally performed a history, physical exam, medical decision making, and confirmed accuracy of information the transcribed note. ED Course: 66-year-old male with a history of end stage renal disease well-known to the ER presents for peripheral edema. He comes here every 1-2 weeks for dialysis as he does not seem to have access to outpatient care. He was last dialyzed 6 days ago in the hospital. He has no other complaints today. His exam is normal and his lungs are clear. We will check blood work and EKG and compare them to previous to determine if he needs dialysis or other workup. Case Management will be consulted. I reviewed the patient's blood work. His creatinine is elevated at 16.2 and was 7.5 when he was discharged last week. Potassium elevated at 6.2. 1522: Consulted with Dr. Haji, hospitalist. He accepts admission. MDM: Differential diagnosis includes renal failure, hyperkalemia, dehydration, acute on chronic renal failure, urinary tract infection, medical noncompliance, volume overload. - Data Points Laboratory Results: Laboratory Results 10/15/16 14:10 10/15/16 14:10 10/15/16 10/15/16 14:10 14:10 WBC 5.60 10^3/uL 10^3/uL (3.80-9.50) RBC 2.36 10^6/uL L 10^6/uL (4.40-6.38) Hgb 7.4 g/dL L g/dL (13.7-17.5) Hct 23.5 % L % (40.0-51.0) MCV 99.6 fL fL (81.5-99.8) MCH 31.4 pg pg (27.9-34.1) MCHC 31.5 g/dL L g/dL (32.4-36.7) RDW 18.9 % H % (11.5-15.2) Plt Count 127 10^3/uL L 10^3/uL (150-400) MPV 10.5 fL fL (8.7-11.7) Neut % (Auto) 72.8 % % (39.3-74.2) Lymph % (Auto) 10.7 % L % (15.0-45.0) Gates % (Auto) 5.7 % % (4.5-13.0) Eos % (Auto) 9.5 % H % (0.6-7.6) Baso % (Auto) 0.9 % % (0.3-1.7) Nucleat RBC Rel Count 0.0 % % (0.0-0.2) Absolute Neuts (auto) 4.08 10^3/uL 10^3/uL (1.70-6.50) Absolute Lymphs (auto) 0.60 10^3/uL L 10^3/uL (1.00-3.00) Absolute Monos (auto) 0.32 10^3/uL 10^3/uL (0.30-0.80) Absolute Eos (auto) 0.53 10^3/uL H 10^3/uL (0.03-0.40) Absolute Basos (auto) 0.05 10^3/uL 10^3/uL (0.02-0.10) Absolute Nucleated RBC 0.00 10^3/uL 10^3/uL (0-0.01) Immature Gran % 0.4 % % (0.0-1.1) Immature Gran # 0.02 10^3/uL 10^3/uL (0.00-0.10) Sodium 144 mEq/L mEq/L (134-144) Potassium 6.2 mEq/L H mEq/L (3.5-5.2) Chloride 104 mEq/L mEq/L (97-110) Carbon Dioxide 18 mEq/l L mEq/l (22-31) Anion Gap 22 mEq/L H mEq/L (8-16) BUN 126 mg/dL H* mg/dL (7-23) Creatinine 16.2 mg/dL H* mg/dL (0.7-1.3) Estimated GFR 3 Glucose 156 mg/dL H mg/dL (70-100) Calcium 8.1 mg/dL L mg/dL (8.5-10.4) General Time Seen by Provider: 10/15/16 13:22 Initial Vital Signs: Initial Vital Signs Temperature (C) 36.6 C 10/15/16 12:29 Heart Rate 65 10/15/16 12:29 Respiratory Rate 18 10/15/16 12:29 Blood Pressure 183/80 H 10/15/16 12:29 O2 Sat (%) 99 10/15/16 12:29 O2 Delivery Mode Room Air Allergies/Adverse Reactions: No Known Allergies Allergy (Verified 10/15/16 12:32) Home Medications: Medication Instructions Recorded Ergocalciferol [Vitamin D2 (*)] 50,000 unit PO TU 11/10/15 Atorvastatin Calcium [Lipitor 40 80 mg PO DAILY 07/02/16 mg (*)] hydrALAZINE [Apresoline 50 mg (*)] 50 mg PO BID 07/02/16 Herbals/Supplements -Info Only 1 ea PO DAILY 09/17/16 Multivitamins [Multivitamin (*)] 1 each PO DAILY 09/17/16 Nitroglycerin [Nitrostat 0.4 mg 0.4 mg SL Q5M PRN 09/17/16 (*)] Pantoprazole Sodium [Protonix 40mg 40 mg PO BID 09/17/16 (*)] amLODIPine BESYLATE [Norvasc 10 mg 10 mg PO DAILY 09/17/16 (*)] hydrALAZINE [Apresoline 50 mg (*)] 25 mg PO DAILY@12 09/17/16 Metoprolol Succinate Xr [Toprol Xl 100 mg PO DAILY #0 tab.sr 10/03/16 100 mg (*)] Vit B Cmplx 3/Folic AC/C/Biot 1 each PO DAILY 10/08/16 [Ev-Peyton Rx Tablet] Departure - Departure Disposition: [facility] Acute Clinical Impression: Hyperkalemia, End stage renal disease Condition: Fair Report Scribed for: Maryann Appiah Report Scribed by: Slim Murray Date of Report: 10/15/16 Time of Report: 13:29
--- NOTE | 2016-10-15 14:16 | CPEKG ---
Heart Rate: 60 RR Interval: 1000 P-R Interval: 176 QRSD Interval: 102 QT Interval: 452 QTC Interval: 452 P [place]: 67 QRS [place]: 65 T Wave [place]: 55 EKG Severity - NORMAL ECG - EKG Impression: SINUS RHYTHM Electronically Signed By: Geremias Enamorado 15-Oct-2016 15:29:25
[2016-10-15 14:22] LABS: % IMMATURE GRANULYOCYTES 0.4 % (0.0-1.1); ABSOLUTE IMMATURE GRANULOCYTES 0.02 10^3/uL (0.00-0.10); ADD DIFF? NO; ADD MORPH? NO; ADD SCAN? NO; ATYPICAL LYMPHOCYTE FLAG 0 (0-99); FRAGMENT RBC FLAG 0 (0-99); HEMATOCRIT 23.5 % (40.0-51.0); HEMOGLOBIN 7.4 g/dL (13.7-17.5); LEFT SHIFT FLG 0 (0-99); LIPEMIA HEMOLYSIS FLAG 80 (0-99); MEAN CELL HEMOGLOBIN 31.4 pg (27.9-34.1); MEAN CELL HEMOGLOBIN CONCENTR. 31.5 g/dL (32.4-36.7); MEAN CELL VOLUME 99.6 fL (81.5-99.8); MEAN PLATELET VOLUME 10.5 fL (8.7-11.7); PLATELET CLUMPS FLAG 0 (0-99); PLATELET COUNT 127 10^3/uL (150-400); RED BLOOD CELL COUNT 2.36 10^6/uL (4.40-6.38); RED CELL DISTRIBUTION WIDTH 18.9 % (11.5-15.2)
[2016-10-15 14:39] LABS: ANION GAP 22 mEq/L (8-16); CALCIUM 8.1 mg/dL (8.5-10.4); CARBON DIOXIDE 18 mEq/l (22-31); CHLORIDE 104 mEq/L (97-110); GLUCOSE 156 mg/dL (70-100); POTASSIUM 6.2 mEq/L (3.5-5.2); SODIUM 144 mEq/L (134-144)
[2016-10-15 15:05] LABS: CREATININE 16.2 mg/dL (0.7-1.3); GLOMERULAR FILTRATION RATE 3
[2016-10-15] MEDS ORDERED: ZOLPIDEM TARTRATE 5 MG TAB PO PRN (16:23)
[2016-10-15] MEDS ORDERED: ONDANSETRON 4 MG/2 ML VIAL IVP PRN (16:23)
[2016-10-15] MEDS ORDERED: ACETAMINOPHEN 325 MG TAB PO PRN (16:23)
[2016-10-15] MEDS ORDERED: NITROGLYCERIN 0.4 MG BTL SL PRN (16:27)
--- NOTE | 2016-10-15 16:31 | PDGENHP ---
History and Physical History and Physical: HISTORY AND PHYSICAL CC: Here for his usual dialysis HISTORY: This patient with end-stage renal disease on chronic dialysis has no ability to get outpatient dialysis coverage. Therefore we dialyzed him here to the hospital. He is here for routine scheduled dialysis today. He says he feels well overall. He is eating well no nausea vomiting diarrhea abdominal pain which are his usual symptoms. There is no fever symptoms no pain and is dialysis catheter, no bleeding no shortness of breath no leg swelling. ROS: A comprehensive 10 system review revealed no other significant findings PAST MEDICAL HISTORY: End-stage renal disease on dialysis Hypertension FAMILY MEDICAL HISTORY: no family history fo renal disease SOCIAL HISTORY: employed, but no health insurance no tobacco or etoh MEDICATIONS: The patients list has been reconciled by our clinical pharmacist in the EMR. I have reviewed the list and ordered appropriate medicines. 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 This is a routine dialysis for him. PLANS: Will order predialysis labs alert the unit and observe afterward. I will determine the time of discharge based on when the actually can get dialysis done. I am not sure we will be able to get dialysis done due the time of day here I have reviewed the patient's case in detail with Dr. Edis Akhtar. I have reviewed the patient's past medical records as part of this assessment, including prior hospital admisssion records
[2016-10-15] MEDS: SODIUM POLY SULF 15 GM/60 ML BOTTLE PO ONE ×2 (18:28→18:37)
[2016-10-15] MEDS ORDERED: SODIUM POLY SULF 15 GM/60 ML BOTTLE PO ONE (19:00)
[2016-10-15] MEDS: PANTOPRAZOLE SODIUM 40 MG TAB PO SCH (21:26)
[2016-10-16 00:02] LABS: ANION GAP 19 mEq/L (8-16); CALCIUM 7.6 mg/dL (8.5-10.4); CARBON DIOXIDE 12 mEq/l (22-31); CHLORIDE 112 mEq/L (97-110); GLUCOSE 109 mg/dL (70-100); MAGNESIUM 1.7 mg/dL (1.6-2.3); POTASSIUM 6.1 mEq/L (3.5-5.2); SODIUM 143 mEq/L (134-144)
[2016-10-16 00:30] LABS: GLOMERULAR FILTRATION RATE 3
[2016-10-16 00:31] LABS: CREATININE 14.6 mg/dL (0.7-1.3)
[2016-10-16 04:39] LABS: ANION GAP 19 mEq/L (8-16); CALCIUM 8.2 mg/dL (8.5-10.4); CARBON DIOXIDE 13 mEq/l (22-31); CHLORIDE 109 mEq/L (97-110); GLUCOSE 91 mg/dL (70-100); MAGNESIUM 1.8 mg/dL (1.6-2.3); SODIUM 141 mEq/L (134-144)
[2016-10-16 04:40] LABS: GLOMERULAR FILTRATION RATE 3
[2016-10-16 04:41] LABS: CREATININE 16.3 mg/dL (0.7-1.3); POTASSIUM 6.6 mEq/L (3.5-5.2)
[2016-10-16] MEDS: PANTOPRAZOLE SODIUM 40 MG TAB PO SCH ×2 (08:15→20:41)
[2016-10-16] MEDS ORDERED: [UNRECOGNIZED DRUG - OTHER] PO SCH (09:00)
[2016-10-16] MEDS ORDERED: Herbals/Supplements -Info Only PO SCH (09:00)
--- NOTE | 2016-10-16 14:50 | HOSPPROG ---
Hospitalist Progress Note Assessment/Plan: 66 yo M w esrd esrd: HD today needs several more sessions hyperkalemia: follow daily ekg w normal qrs (interp by me) anemia: 2/2 esrd follow daily no need for transfusion htn: continue meds dispo: inpatient high risk Subjective: tele: no events (interp by me). case d/w dr [place] Objective: Vital Signs Temp Pulse Resp BP Pulse Ox 36.6 C 62 16 166/91 H 99 10/16/16 14:12 10/16/16 14:12 10/16/16 14:12 10/16/16 14:12 10/16/16 14:12 Laboratory Results 10/16/16 03:56 10/15/16 10/16/16 10/17/16 05:59 05:59 05:59 Intake Total 500 Balance 500 - Physical Exam Constitutional: no apparent distress, appears nourished Eyes: PERRL, anicteric sclera Ears, Nose, Mouth, Throat: moist mucous membranes, hearing normal Cardiovascular: regular rate and rhythym, no murmur, rub, or gallop Respiratory: no respiratory distress, no rales or rhonchi Gastrointestinal: normoactive bowel sounds, soft, non-tender abdomen Genitourinary: No godoy in urethra Skin: warm, normal color Musculoskeletal: full muscle strength, no muscle tenderness Neurologic: AAOx3 Psychiatric: interacting appropriately ICD10 Worksheet Patient Problems: Problems Problem Status Onset End stage renal disease Acute Hyperkalemia Acute Abdominal pain Acute Acute renal failure Acute Acute upper GI bleed Acute Anemia Acute Anemia associated with acute blood loss Acute Chronic renal failure Acute Diarrhea Acute Hyperkalemia Acute Hyperkalemia Acute Hyperkalemia Acute Hyperkalemia Acute Hyperkalemia Acute Hypertension Acute Hypocalcemia Acute Kidney failure Acute Kidney failure Acute Kidney failure Acute Metabolic acidosis Acute Renal failure Acute Shingles (herpes zoster) polyneuropathy Acute Uremia Acute
[2016-10-16] MEDS: METOPROLOL SUCCINATE XR 100 MG TAB PO SCH (14:51)
[2016-10-16] MEDS: ATORVASTATIN CALCIUM 40 MG TAB PO SCH (14:51)
[2016-10-16] MEDS: MULTIVITAMINS 1 EACH TAB PO SCH (14:52)
--- NOTE | 2016-10-16 15:13 | SOAPPROG ---
SOEDY Progress Note Assessment/Plan: Assessment: 1. esrd without benefits: s/p uneventful brief hd earlier today, will repeat tomorrow. He reports having dizziness near end of treatment with treatment time >3hrs. Unclear if this represents mild dysequilibrium or vol contraction from uf. Will dialyze 3hrs tomorrow. 2. HyperK: dialysis 3. Htn: cont meds Plan: 10/16/16 15:11 Subjective: Uneventful 2hr hd earlier today. Hungry. Objective: Vital Signs Temp Pulse Resp BP Pulse Ox 36.6 C 62 16 166/91 H 99 10/16/16 14:12 10/16/16 14:12 10/16/16 14:12 10/16/16 14:12 10/16/16 14:12 Laboratory Results 10/16/16 03:56 10/15/16 10/16/16 10/17/16 05:59 05:59 05:59 Intake Total 500 Balance 500 Physical Exam - Physical Exam General Appearance: no apparent distress Respiratory: lungs clear Cardiac/Chest: regular rate, rhythm, other (no rub) Extremities: pedal edema (none) ICD10 Worksheet Patient Problems: Problems Problem Status Onset End stage renal disease Acute Hyperkalemia Acute Abdominal pain Acute Acute renal failure Acute Acute upper GI bleed Acute Anemia Acute Anemia associated with acute blood loss Acute Chronic renal failure Acute Diarrhea Acute Hyperkalemia Acute Hyperkalemia Acute Hyperkalemia Acute Hyperkalemia Acute Hyperkalemia Acute Hypertension Acute Hypocalcemia Acute Kidney failure Acute Kidney failure Acute Kidney failure Acute Metabolic acidosis Acute Renal failure Acute Shingles (herpes zoster) polyneuropathy Acute Uremia Acute
[2016-10-16] MEDS ORDERED: HEPARIN 50,000 UNIT/10 ML VIAL ONE (16:16)
[2016-10-16] MEDS ORDERED: ERGOCALCIFEROL 50,000 I.UNIT CAP PO SCH (16:27)
[2016-10-17 01:52] LABS: COLOR PALE YELLOW; LEUKOCYTE ESTERASE,URINE NEGATIVE (NEGATIVE); NITRITE,URINE NEGATIVE (NEGATIVE)
[2016-10-17 01:54] LABS: MUCUS TRACE /lpf (NONE-1+)
[2016-10-17 05:08] LABS: ALBUMIN 3.8 g/dL (3.5-5.0); ANION GAP 18 mEq/L (8-16); CALCIUM 8.3 mg/dL (8.5-10.4); CARBON DIOXIDE 19 mEq/l (22-31); CHLORIDE 103 mEq/L (97-110); GLOMERULAR FILTRATION RATE 4; GLUCOSE 100 mg/dL (70-100); POTASSIUM 5.2 mEq/L (3.5-5.2); SODIUM 140 mEq/L (134-144)
[2016-10-17 05:13] LABS: CREATININE 11.5 mg/dL (0.7-1.3)
[2016-10-17] MEDS: METOPROLOL SUCCINATE XR 100 MG TAB PO SCH (09:00)
[2016-10-17] MEDS: MULTIVITAMINS 1 EACH TAB PO SCH (09:01)
[2016-10-17] MEDS: PANTOPRAZOLE SODIUM 40 MG TAB PO SCH ×2 (09:01→20:45)
[2016-10-17] MEDS: ATORVASTATIN CALCIUM 40 MG TAB PO SCH (09:04)
[2016-10-17] MEDS: NEPHROVITE FOLIC ACID/VIT B&C 1 TAB PO SCH (09:04)
--- NOTE | 2016-10-17 09:49 | SOAPPROG ---
JACQUELINE Progress Note Assessment/Plan: Assessment: 1. Hyperkalemia. Improved after dialysis yesterday. Will run again today. 2. ESRD. No outpatient benefits. HD today, tomorrow then can discharge. 3. Anemia of ESRD. Hgb 7.4. Give dose of procrit today. Chk Fe studies. 4. Secondary HPT. Add 1 monica qac. On ergo. Chk vit D/PTH. 5. Acidosis. Start Na HCO3. 6. HTN. BP well controlled. Plan: 10/17/16 09:48 10/17/16 09:49 10/17/16 09:51 Subjective: He had diarrhea x 20 yesterday. He attributes to a med (Kayexalate not listed in SEP). Better today. No n/v or other complaints. Objective: Vital Signs Temp Pulse Resp BP Pulse Ox 36.8 C 58 L 18 142/82 H 97 10/17/16 07:33 10/17/16 09:00 10/17/16 07:33 10/17/16 07:33 10/17/16 07:33 Laboratory Results 10/17/16 04:28 10/16/16 10/17/16 10/18/16 05:59 05:59 05:59 Intake Total 600 Output Total 100 Balance 500 RRR, no m/g/r CTAB Abdom soft, nontender No LE edema ICD10 Worksheet Patient Problems: Problems Problem Status Onset Acute renal failure Acute Anemia Acute Abdominal pain Acute Hyperkalemia Acute Hypocalcemia Acute Renal failure Acute Hypertension Acute Acute upper GI bleed Acute Anemia associated with acute blood loss Acute End stage renal disease Acute Metabolic acidosis Acute Diarrhea Acute Shingles (herpes zoster) polyneuropathy Acute Kidney failure Acute Hyperkalemia Acute Chronic renal failure Acute Hyperkalemia Acute Kidney failure Acute Hyperkalemia Acute Kidney failure Acute Uremia Acute Hyperkalemia Acute Hyperkalemia Acute
[2016-10-17] MEDS ORDERED: EPOETIN ALFA 10,000 UNIT/ML VIAL SC SCH (10:00)
[2016-10-17] MEDS ORDERED: NS 500 ML IV PRN (10:40)
[2016-10-17 10:49] LABS: % SATURATION 47 % (20-55); TOTAL IRON BINDING CAPACITY 223 ug/dL (260-490)
[2016-10-17] MEDS: SODIUM BICARBONATE 650 MG TAB PO SCH ×2 (11:41→20:45)
--- NOTE | 2016-10-17 12:10 | HOSPPROG ---
Hospitalist Progress Note Assessment/Plan: 66 yo M w esrd esrd: HD today needs several more sessions hyperkalemia: follow daily ekg w normal qrs (interp by me) anemia: 2/2 esrd follow daily no need for transfusion htn: continue meds dispo: inpatient high risk proph: sc heparin Subjective: no diarrhea. tele: no events (interp by me). case discussed w dr lan Objective: Vital Signs Temp Pulse Resp BP Pulse Ox 36.8 C 58 L 18 142/82 H 97 10/17/16 07:33 10/17/16 09:00 10/17/16 07:33 10/17/16 07:33 10/17/16 07:33 Laboratory Results 10/17/16 04:28 10/16/16 10/17/16 10/18/16 05:59 05:59 05:59 Intake Total 600 Output Total 100 Balance 500 - Physical Exam Constitutional: no apparent distress, appears nourished Eyes: PERRL, anicteric sclera Ears, Nose, Mouth, Throat: moist mucous membranes, hearing normal Cardiovascular: regular rate and rhythym, no murmur, rub, or gallop Respiratory: no respiratory distress, no rales or rhonchi Gastrointestinal: normoactive bowel sounds, soft, non-tender abdomen Genitourinary: No godoy in urethra Skin: warm, normal color Musculoskeletal: full muscle strength, no muscle tenderness Neurologic: AAOx3 ICD10 Worksheet Patient Problems: Problems Problem Status Onset End stage renal disease Acute Hyperkalemia Acute Abdominal pain Acute Acute renal failure Acute Acute upper GI bleed Acute Anemia Acute Anemia associated with acute blood loss Acute Chronic renal failure Acute Diarrhea Acute Hyperkalemia Acute Hyperkalemia Acute Hyperkalemia Acute Hyperkalemia Acute Hyperkalemia Acute Hypertension Acute Hypocalcemia Acute Kidney failure Acute Kidney failure Acute Kidney failure Acute Metabolic acidosis Acute Renal failure Acute Shingles (herpes zoster) polyneuropathy Acute Uremia Acute
[2016-10-17] MEDS: CALCIUM CARBONATE 500 MG CHEWABLE TAB PO SCH ×2 (15:30→20:45)
[2016-10-17] MEDS: HEPARIN 5,000 UNIT/0.5 ML SYR SC SCH ×2 (15:31→20:46)
[2016-10-17 16:12] LABS: HEPATITIS B SURFACE ANTIBODY NEGATIVE (NEGATIVE)
[2016-10-17 20:22] VITALS: RESP 16
[2016-10-17] MEDS ORDERED: HEPARIN 50,000 UNIT/10 ML VIAL ONE (21:37)
[2016-10-18 05:02] LABS: ANION GAP 13 mEq/L (8-16); CALCIUM 8.4 mg/dL (8.5-10.4); CARBON DIOXIDE 25 mEq/l (22-31); CHLORIDE 97 mEq/L (97-110); CREATININE 7.4 mg/dL (0.7-1.3); GLOMERULAR FILTRATION RATE 7; GLUCOSE 98 mg/dL (70-100); POTASSIUM 4.5 mEq/L (3.5-5.2); SODIUM 135 mEq/L (134-144)
[2016-10-18] MEDS: HEPARIN 5,000 UNIT/0.5 ML SYR SC SCH (06:20)
[2016-10-18 08:02] VITALS: BP 148/76; TEMP 97.9; O2SAT 97
[2016-10-18] MEDS: CALCIUM CARBONATE 500 MG CHEWABLE TAB PO SCH (08:15)
[2016-10-18] MEDS: ATORVASTATIN CALCIUM 40 MG TAB PO SCH (08:15)
[2016-10-18] MEDS: SODIUM BICARBONATE 650 MG TAB PO SCH (08:15)
[2016-10-18] MEDS: PANTOPRAZOLE SODIUM 40 MG TAB PO SCH (08:15)
[2016-10-18] MEDS: NEPHROVITE FOLIC ACID/VIT B&C 1 TAB PO SCH (08:15)
[2016-10-18] MEDS: MULTIVITAMINS 1 EACH TAB PO SCH (08:16)
[2016-10-18] MEDS: METOPROLOL SUCCINATE XR 100 MG TAB PO SCH (08:16)
[2016-10-18 08:17] VITALS: PULSE 56
--- NOTE | 2016-10-18 10:20 | SOAPPROG ---
JACQUELINE Progress Note Assessment/Plan: Assessment:Plan: ESRD-labs stable -no acute/emergent indications for dialysis today -if he remains an inpatient, we will plan for him to have dialysis tomorrow Access-stable Dispo-pending 10/18/16 10:18 Subjective: feels okay Objective: Vital Signs Temp Pulse Resp BP Pulse Ox 36.6 C 56 L 16 148/76 H 97 10/18/16 08:00 10/18/16 08:16 10/18/16 08:00 10/18/16 08:00 10/18/16 08:00 Laboratory Results 10/18/16 04:13 10/17/16 10/18/16 10/19/16 05:59 05:59 05:59 Intake Total 600 750 390 Output Total 100 Balance 500 750 390 Physical Exam - Physical Exam General Appearance: alert, no apparent distress EENT: normal ENT inspection Neck: normal inspection Respiratory: lungs clear, normal breath sounds, No respiratory distress Cardiac/Chest: regular rate, rhythm Abdomen: normal bowel sounds, non-tender, soft Extremities: No swelling ICD10 Worksheet Patient Problems: Problems Problem Status Onset End stage renal disease Acute Hyperkalemia Acute Abdominal pain Acute Acute renal failure Acute Acute upper GI bleed Acute Anemia Acute Anemia associated with acute blood loss Acute Chronic renal failure Acute Diarrhea Acute Hyperkalemia Acute Hyperkalemia Acute Hyperkalemia Acute Hyperkalemia Acute Hyperkalemia Acute Hypertension Acute Hypocalcemia Acute Kidney failure Acute Kidney failure Acute Kidney failure Acute Metabolic acidosis Acute Renal failure Acute Shingles (herpes zoster) polyneuropathy Acute Uremia Acute
--- NOTE | 2016-10-18 18:06 | GDS ---
[f rep st] DISCHARGE SUMMARY DISCHARGE DIAGNOSES: 1. End-stage renal disease, dialysis dependent. 2. Metabolic acidosis, resolved. 3. Hyperkalemia. 4. Anemia. 5. Hypertension. CONSULTANTS: Galileo Akhtar MD, Nephrology. HISTORY: For details, please see dictated history and physical dated October 15, 2016, by Dr. Shadi Haji. In brief, the patient is a 66-year-old male, well known to our service with a history of e nd-stage renal disease, on chronic dialysis but no outpatient benefits, who presents frequently to [facility] for dialysis needs. He presented for routine dialysis and has overall been feeling well . Initial labs revealed elevated potassium of 6.2 and a serum bicarb of 18. He was admitted to the hospital for dialysis needs. HOSPITAL COURSE: The patient was admitted to the telemetry unit. A nephrology consultation was obt ained and he underwent hemodialysis. He was restarted on his oral sodium bicarb. His metabolic aci dosis resolved. His potassium level normalized after dialysis. On the day of discharge, his electr olytes were normal. He had no dialysis needs at this time. Therefore, he was discharged home with instructions to follow up no later than 1 week for repeat dialysis. DISPOSITION: Patient is discharged home in stable condition. FOLLOWUP: The patient will return to the hospital for ongoing dialysis needs. DISCHARGE MEDICATIONS: Please see [facility] for complete updated outpatient medication list. There are no new medications prescribed at discharge, though he is given a refill of his metoprolol. He w ill continue all other medications as prescribed. /[id number]/MODL
== END 2016-10-18 11:47 | disposition home or self-care (01) | DRG 683 ==
LOC: F2W 17:03 → OBSVTOIN 10-16 14:52
PROVIDERS: ADMIT Internal Medicine; ATTEND Internal Medicine
PROC: 5A1D60Z (ICD-10-PCS; principal; 2016-10-17)
DX: N18.6 End stage renal disease (principal); E87.2 Acidosis; I12.0 Hypertensive chronic kidney disease with stage 5 chronic kidney disease or end stage renal disease; I25.10 Atherosclerotic heart disease of native coronary artery without angina pectoris; K21.9 Gastro-esophageal reflux disease without esophagitis; E87.5 Hyperkalemia; D63.1 Anemia in chronic kidney disease; Z99.2 Dependence on renal dialysis; Z87.891 Personal history of nicotine dependence
CPT/HCPCS: G0378; J0885; J1644

== ENCOUNTER 2016-10-23 12:06 | Observation (INO) | payer OTHER ==
[2016-10-23 13:16] LABS: % IMMATURE GRANULYOCYTES 0.3 % (0.0-1.1); ABSOLUTE IMMATURE GRANULOCYTES 0.02 10^3/uL (0.00-0.10); ADD DIFF? NO; ADD MORPH? NO; ADD SCAN? NO; ATYPICAL LYMPHOCYTE FLAG 0 (0-99); FRAGMENT RBC FLAG 0 (0-99); LEFT SHIFT FLG 0 (0-99); LIPEMIA HEMOLYSIS FLAG 80 (0-99); MEAN CELL HEMOGLOBIN 32.4 pg (27.9-34.1); MEAN CELL HEMOGLOBIN CONCENTR. 33.3 g/dL (32.4-36.7); MEAN CELL VOLUME 97.2 fL (81.5-99.8); MEAN PLATELET VOLUME 10.1 fL (8.7-11.7); PLATELET CLUMPS FLAG 20 (0-99); PLATELET COUNT 185 10^3/uL (150-400); RED BLOOD CELL COUNT 2.47 10^6/uL (4.40-6.38); RED CELL DISTRIBUTION WIDTH 17.2 % (11.5-15.2)
--- NOTE | 2016-10-23 13:21 | CPEKG ---
Heart Rate: 55 RR Interval: 1091 P-R Interval: 180 QRSD Interval: 102 QT Interval: 480 QTC Interval: 460 P [place]: 70 QRS [place]: 69 T Wave [place]: 66 EKG Severity - NORMAL ECG - EKG Impression: SINUS RHYTHM Electronically Signed By: Gibson Victoria 23-Oct-2016 14:07:47
--- NOTE | 2016-10-23 13:46 | EDPHY ---
H & P Time Seen by Provider: 10/23/16 12:54 HPI/ROS: CHIEF COMPLAINT: Here for dialysis HISTORY OF PRESENT ILLNESS: 66-year-old male presents to the emergency department requesting dialysis. The patient has a history of end-stage renal disease and has been seen numerous times for dialysis in the hospital. Patient is unable to receive outpatient dialysis secondary to insurance issues. He was last dialyzed 1 week ago. He has ongoing fatigue. He did develop watery diarrhea this morning. He has had 2 episodes of watery diarrhea. He denies melena. Denies bright red blood per rectum. No vomiting. He does make urine and has been urinating very little. No reported fevers. No chest pain or difficulty breathing. He denies abdominal pain. REVIEW OF SYSTEMS: Constitutional: No fever, no chills. Eyes: No double or blurry vision. ENT: No sore throat. Respiratory: No cough, no shortness of breath. Cardiac: No chest pain. Gastrointestinal: No abdominal pain, vomiting or diarrhea. Genitourinary: No dysuria. Musculoskeletal: No neck or back pain. Skin: No rashes. Neurological: No headache. Past Medical/Surgical History: End-stage renal disease on dialysis, gout, hypertension, hernia, anemia, coronary artery disease, esophagitis, gastric ulcer, cardiac stents, zoster Social History: Originally from [facility] Smoking Status: Former smoker Physical Exam: General Appearance: Alert, no distress. 146/68, temperature 36.6, heart rate 59, 98% on room air. Eyes: Pupils equal and round. Extraocular motions are all intact. ENT: Mouth: Mucous membranes moist. Respiratory: No wheezing, rhonchi, or rales, lungs are clear to auscultation. Dialysis port noted to the right anterior aspect of the chest with a date of October 17, 2016. Cardiovascular: Regular rate and rhythm. Gastrointestinal: Abdomen is soft and nontender, no masses, no rebound or guarding, bowel sounds normal. Neurological: Alert and oriented x 3, cranial nerves II through XII grossly intact Skin: Warm and dry, no rashes. Musculoskeletal: Nontender to palpate along the cervical, thoracic or lumbar spine. Neck is supple. Extremities: Full range of motion and no peripheral edema. Psychiatric: Patient is oriented X 3, there is no agitation. Constitutional: Initial Vital Signs Temperature (C) 36.6 C 10/23/16 12:29 Heart Rate 59 L 10/23/16 12:29 Respiratory Rate 20 10/23/16 12:29 Blood Pressure 146/68 H 10/23/16 12:29 O2 Sat (%) 98 10/23/16 12:29 O2 Delivery Mode Room Air Allergies/Adverse Reactions: No Known Allergies Allergy (Verified 10/23/16 12:28) Home Medications: Medication Instructions Recorded Ergocalciferol [Vitamin D2 (*)] 50,000 unit PO TU 11/10/15 Atorvastatin Calcium [Lipitor 40 80 mg PO DAILY 07/02/16 mg (*)] hydrALAZINE [Apresoline 50 mg (*)] 50 mg PO BID 07/02/16 Herbals/Supplements -Info Only 1 ea PO DAILY 09/17/16 Multivitamins [Multivitamin (*)] 1 each PO DAILY 09/17/16 Nitroglycerin [Nitrostat 0.4 mg 0.4 mg SL Q5M PRN 09/17/16 (*)] Pantoprazole Sodium [Protonix 40mg 40 mg PO BID 09/17/16 (*)] amLODIPine BESYLATE [Norvasc 10 mg 10 mg PO DAILY 09/17/16 (*)] hydrALAZINE [Apresoline 50 mg (*)] 25 mg PO DAILY@12 09/17/16 Vit B Cmplx 3/Folic AC/C/Biot 1 each PO DAILY 10/08/16 [Ev-Peyton Rx Tablet] Acetaminophen [Tylenol 325mg (*)] 650 mg PO Q4HRS PRN #0 tab 10/18/16 Metoprolol Succinate Xr [Toprol Xl 100 mg PO DAILY #30 tab 10/18/16 100 mg (*)] Sodium Bicarbonate [Na Bicarb] 1,300 mg PO BID #0 tab 10/18/16 Medical Decision Making ED Course/Re-evaluation: 66-year-old male with multiple medical problems including end-stage renal disease is here for dialysis. He was last dialyzed 1 week ago. He is unable to obtain outpatient dialysis due to insurance issues. The patient is well known to the emergency department into the hospital. He was just dialyzed at the hospital 1 week ago. Potassium today is 6. Creatinine of 16.9. The patient will be admitted to PCU to Dr. Silvestre Rich. He had a normal EKG. Differential Diagnosis: Including but not limited to end-stage renal failure, hyperkalemia, dehydration , acidosis, sepsis - Data Points Laboratory Results: Laboratory Results 10/23/16 13:06 10/23/16 13:06 10/23/16 10/23/16 13:06 13:06 WBC 5.94 10^3/uL 10^3/uL (3.80-9.50) RBC 2.47 10^6/uL L 10^6/uL (4.40-6.38) Hgb 8.0 g/dL L g/dL (13.7-17.5) Hct 24.0 % L % (40.0-51.0) MCV 97.2 fL fL (81.5-99.8) MCH 32.4 pg pg (27.9-34.1) MCHC 33.3 g/dL g/dL (32.4-36.7) RDW 17.2 % H % (11.5-15.2) Plt Count 185 10^3/uL 10^3/uL (150-400) MPV 10.1 fL fL (8.7-11.7) Neut % (Auto) 68.9 % % (39.3-74.2) Lymph % (Auto) 14.3 % L % (15.0-45.0) [place] % (Auto) 7.6 % % (4.5-13.0) Eos % (Auto) 7.9 % H % (0.6-7.6) Baso % (Auto) 1.0 % % (0.3-1.7) Nucleat RBC Rel Count 0.0 % % (0.0-0.2) Absolute Neuts (auto) 4.09 10^3/uL 10^3/uL (1.70-6.50) Absolute Lymphs (auto) 0.85 10^3/uL L 10^3/uL (1.00-3.00) Absolute Monos (auto) 0.45 10^3/uL 10^3/uL (0.30-0.80) Absolute Eos (auto) 0.47 10^3/uL H 10^3/uL (0.03-0.40) Absolute Basos (auto) 0.06 10^3/uL 10^3/uL (0.02-0.10) Absolute Nucleated RBC 0.00 10^3/uL 10^3/uL (0-0.01) Immature Gran % 0.3 % % (0.0-1.1) Immature Gran # 0.02 10^3/uL 10^3/uL (0.00-0.10) Sodium 142 mEq/L mEq/L (134-144) Potassium 6.0 mEq/L H mEq/L (3.5-5.2) Chloride 100 mEq/L mEq/L (97-110) Carbon Dioxide 16 mEq/l L mEq/l (22-31) Anion Gap 26 mEq/L H mEq/L (8-16) BUN 149 mg/dL H* mg/dL (7-23) Creatinine 16.9 mg/dL H* mg/dL (0.7-1.3) Estimated GFR 3 Glucose 102 mg/dL H mg/dL (70-100) Calcium 8.0 mg/dL L mg/dL (8.5-10.4) Departure - Departure Disposition: [facility] Inpatient Acute Clinical Impression: Hyperkalemia, End stage renal disease Condition: Fair
[2016-10-23 13:53] LABS: ANION GAP 26 mEq/L (8-16); CARBON DIOXIDE 16 mEq/l (22-31); CHLORIDE 100 mEq/L (97-110); GLUCOSE 102 mg/dL (70-100); SODIUM 142 mEq/L (134-144)
[2016-10-23 14:12] LABS: CREATININE 16.9 mg/dL (0.7-1.3); GLOMERULAR FILTRATION RATE 3
[2016-10-23] MEDS ORDERED: ONDANSETRON DISINTEGRATING 4 MG TAB PO PRN (14:23)
[2016-10-23] MEDS ORDERED: ACETAMINOPHEN 325 MG TAB PO PRN (14:23)
[2016-10-23] MEDS ORDERED: ONDANSETRON 4 MG/2 ML VIAL IVP PRN (14:23)
--- NOTE | 2016-10-23 15:20 | GHP ---
[f rep st] HISTORY AND PHYSICAL DATE OF ADMISSION: 10/23/2016 HISTORY OF PRESENT ILLNESS: The patient is a 66-year-old gentleman with end- stage renal disease and coronary disease, well-known to the Hospital Medicine service, who is dialysis dependent, with poor access to dialysis, who presents today with diarrhea which is usually the herald of hyperkalemia and volume overload. He said he has been modestly short of breath. He has had a tiny bit of lower extremity swelling. He denies fever, chills, cough, sputum. He notes that he eats a low potassium diet, including no beans. He acknowledges that he takes his medications as prescribed. REVIEW OF SYSTEMS: Complete 10-point review of systems conducted and negative except as noted in the HPI. PAST MEDICAL HISTORY: 1. Coronary artery disease. 2. End-stage renal disease. 3. GI bleed. 4. History of GERD. 5. Anemia of chronic renal disease. 6. Esophagitis. 7. Hypertension. 8. He has a tunneled right IJ catheter for hemodialysis. FAMILY HISTORY: Notable for CVA and hypertension. ALLERGIES: No known drug allergies. HOME MEDICATIONS: Hydralazine, amlodipine, Ev-Peyton, sodium bicarbonate, pantoprazole, nitroglycerin, multivitamin, Toprol-XL, herbals, vitamin D2, atorvastatin, acetaminophen. He had been on aspirin and Plavix previously, but had GI bleed and these were thus stopped. PHYSICAL EXAM: VITAL SIGNS: Presenting vitals today: Temp 36.6, blood pressure 146/68, pulse 59, breathing 20 times a minute, 98% on room air. GENERAL: No acute distress. HEENT: Sclerae anicteric. Oropharynx clear. Mucous membranes moist. NECK: Supple without lymphadenopathy, JVD. LUNGS: Clear to auscultation bilaterally without crackles. HEART: S1, S2 without murmur, rub. ABDOMEN: Soft, nontender, nondistended. LOWER EXTREMITIES: Without edema. Calves nontender. SKIN: Without rash. NEUROLOGIC: Nonfocal. LABS: White count 6, hematocrit 24, which is his baseline. Platelets are 185, 000. Sodium 142, potassium 6.0, chloride 100, bicarb 16, BUN 149, 16.9, glucose 102, anion gap is elevated at 26. There is no imaging. EKG interpreted by me shows sinus chivo at 55 with moderately prominent T-waves and no ST or T-wave changes. Compared with prior, about the same. T-waves are a little greater today. I have discussed the case with KANG Coe in the emergency department. ASSESSMENT AND PLAN: A 66-year-old gentleman with end-stage renal disease, here with no access to dialysis. 1. Dialysis: The patient has no emergent indications for dialysis, however, I have spoke with the nephrology physician who will see him. He does have dialysis access; they will attempt to dialyze him today. 2. History of coronary disease. He is not on aspirin or Plavix given upper gastrointestinal bleed and his anemia. 3. Anion gap acidosis is attributable to uremia, expected to improve. 4. Hyperkalemia. This is an indication for telemetry. I expect it to improve with dialysis. 5. Prophylaxis with subcu heparin. DISPOSITION: Observation status. /[id number]/MODL MTDD
[2016-10-23] MEDS ORDERED: NITROGLYCERIN 0.4 MG BTL SL PRN (15:29)
[2016-10-23] MEDS ORDERED: ERGOCALCIFEROL 50,000 I.UNIT CAP PO SCH ×2 (15:30→15:36)
--- NOTE | 2016-10-23 19:08 | SOAPPROG ---
SOAP Progress Note Assessment/Plan: Assessment: 1. ESRD without benefits Dialysis to occur tonight or tomorrow am. K level is high, but he has consistently tolerated K levels > 7 without cardiac issues. Will keep on telemetry, add oral sodium bicarbonate, and dialyze in am. 2. Anemia This is stable. 3. Access Consider fistula placement. 4. Diarrhea This is mild at present. Check C diff. Plan: 10/23/16 19:06 Subjective: No complaints Objective: Vital Signs Temp Pulse Resp BP Pulse Ox 36.8 C 58 L 18 136/67 H 96 10/23/16 15:11 10/23/16 15:11 10/23/16 15:11 10/23/16 15:11 10/23/16 15:11 Physical Exam - Physical Exam General Appearance: no apparent distress Neck: other (Catheter exit site and tunnel look ok) Respiratory: lungs clear Cardiac/Chest: regular rate, rhythm Abdomen: non-tender Extremities: pedal edema Neuro/Psych: oriented x 3 ICD10 Worksheet Patient Problems: Problems Problem Status Onset End stage renal disease Acute Hyperkalemia Acute Abdominal pain Acute Acute renal failure Acute Acute upper GI bleed Acute Anemia Acute Anemia associated with acute blood loss Acute Chronic renal failure Acute Diarrhea Acute Hyperkalemia Acute Hyperkalemia Acute Hyperkalemia Acute Hyperkalemia Acute Hyperkalemia Acute Hypertension Acute Hypocalcemia Acute Kidney failure Acute Kidney failure Acute Kidney failure Acute Metabolic acidosis Acute Renal failure Acute Shingles (herpes zoster) polyneuropathy Acute Uremia Acute
[2016-10-23] MEDS ORDERED: SODIUM BICARBONATE 650 MG TAB PO SCH (21:00)
[2016-10-23] MEDS: PANTOPRAZOLE SODIUM 40 MG TAB PO SCH (21:07)
[2016-10-23] MEDS: HEPARIN 5,000 UNIT/0.5 ML SYR SC SCH (21:07)
[2016-10-23 21:40] LABS: COLOR PALE YELLOW; LEUKOCYTE ESTERASE,URINE NEGATIVE (NEGATIVE); NITRITE,URINE NEGATIVE (NEGATIVE)
[2016-10-23 21:43] LABS: WBC,URINE NONE SEEN /hpf (0-3)
[2016-10-24] MEDS: SODIUM BICARBONATE 650 MG TAB PO SCH ×2 (00:54→09:39)
[2016-10-24] MEDS ORDERED: HEPARIN 50,000 UNIT/10 ML VIAL ONE (01:54)
[2016-10-24 04:13] VITALS: RESP 14
[2016-10-24 06:00] LABS: ALBUMIN 3.8 g/dL (3.5-5.0); ANION GAP 15 mEq/L (8-16); CALCIUM 8.5 mg/dL (8.5-10.4); CARBON DIOXIDE 24 mEq/l (22-31); CHLORIDE 103 mEq/L (97-110); GLOMERULAR FILTRATION RATE 6; GLUCOSE 107 mg/dL (70-100); POTASSIUM 4.8 mEq/L (3.5-5.2); SODIUM 142 mEq/L (134-144)
[2016-10-24 06:03] LABS: CREATININE 8.8 mg/dL (0.7-1.3)
[2016-10-24] MEDS: HEPARIN 5,000 UNIT/0.5 ML SYR SC SCH (07:38)
--- NOTE | 2016-10-24 08:28 | SOAPPROG ---
JACQUELINE Progress Note Assessment/Plan: Assessment: 1. Hyperkalemia. Hemodialysis performed yesterday. 2. ESRD. No outpatient benefits. Check weekly labs, come to ED for HD as needed for emergent indications. 3. Anemia of ESRD. Hgb up to 8. Give another dose of procrit today. Will try to give Fe next hospital stay. 4. Secondary HPT. 25 Vit D 61 on 10/17. Can d/c ergocalciferol at this point. 5. HTN. Has been labile. Currently controlled. Has cuff, will check at home and bring in readings next visit. 6. Dispo. Feels well, K normalized, ok to d/c this am. No further HD needs today. Plan: 10/24/16 08:26 Subjective: Had dialysis last night for hyperkalemia. Feels great this am. No nausea, chest pain. Concerned about lability in his blood pressures. Objective: Vital Signs Temp Pulse Resp BP Pulse Ox 36.8 C 61 14 128/50 H 93 10/24/16 04:00 10/24/16 04:00 10/24/16 04:00 10/24/16 04:00 10/24/16 04:00 Laboratory Results 10/24/16 04:05 10/23/16 10/24/16 10/25/16 05:59 05:59 05:59 Intake Total 690 Output Total 150 Balance 540 RRR, no m/g/r CTAB Abdom soft, nontender No edema R chest tunneled dialysis catheter in place ICD10 Worksheet Patient Problems: Problems Problem Status Onset End stage renal disease Acute Hyperkalemia Acute Abdominal pain Acute Acute renal failure Acute Acute upper GI bleed Acute Anemia Acute Anemia associated with acute blood loss Acute Chronic renal failure Acute Diarrhea Acute Hyperkalemia Acute Hyperkalemia Acute Hyperkalemia Acute Hyperkalemia Acute Hyperkalemia Acute Hypertension Acute Hypocalcemia Acute Kidney failure Acute Kidney failure Acute Kidney failure Acute Metabolic acidosis Acute Renal failure Acute Shingles (herpes zoster) polyneuropathy Acute Uremia Acute
[2016-10-24] MEDS ORDERED: EPOETIN ALFA 10,000 UNIT/ML VIAL SC SCH (08:30)
[2016-10-24 08:34] VITALS: BP 141/72; PULSE 58; TEMP 98.8; O2SAT 94
[2016-10-24] MEDS ORDERED: BIOTIN PO SCH (09:00)
[2016-10-24] MEDS ORDERED: ASCORBIC ACID PO SCH (09:00)
[2016-10-24] MEDS ORDERED: MULTIVITAMINS 1 EACH TAB PO SCH (09:00)
[2016-10-24] MEDS ORDERED: VITAMIN B COMPLEX PO SCH (09:00)
[2016-10-24] MEDS ORDERED: Herbals/Supplements -Info Only PO SCH (09:00)
[2016-10-24] MEDS ORDERED: METOPROLOL SUCCINATE XR 100 MG TAB PO SCH (09:00)
[2016-10-24] MEDS ORDERED: ATORVASTATIN CALCIUM 40 MG TAB PO SCH (09:00)
[2016-10-24] MEDS ORDERED: FOLIC ACID PO SCH (09:00)
[2016-10-24] MEDS ORDERED: NEPHROVITE FOLIC ACID/VIT B&C 1 TAB PO SCH (09:00)
[2016-10-24] MEDS: PANTOPRAZOLE SODIUM 40 MG TAB PO SCH (09:36)
--- NOTE | 2016-10-24 15:46 | PDDCSUM ---
Discharge Summary Discharge Summary: DISCHARGE SUMMARY FOLLOW-UP ITEMS: None DATE OF ADMISSION: 10/23/2016 DATE OF DISCHARGE: 10/24/16 DISCHARGE DIAGNOSES: 1. End-stage renal disease 2. Chronic hypertension 3. Acute metabolic acidosis 3. Anemia of chronic kidney disease 4. Chronic coronary artery disease CONSULTATIONS: Nephrology PROCEDURES / IMAGING: Dialysis CHIEF COMPLAINT: Acute shortness of breath SUBJECTIVE: Patient is feeling well at time of discharge PHYSICAL EXAM ON DISCHARGE: Systolic blood pressure is 120-150, heart rate 60, afebrile overnight, satting well on room air, lungs are clear to auscultation bilaterally LABS ON DISCHARGE: BUN 76, creatinine 8.8, potassium 4.8, hemoglobin 8 HOSPITAL COURSE BY PROBLEM: 1. End-stage renal disease. Patient has end-stage renal disease and no access to outpatient dialysis. Presented with symptomatic shortness of breath secondary to volume accumulation and he required hemodialysis. He received 1 dialysis treatment and his symptoms improved. He is being discharged and will return if and when he becomes symptomatic again. We have adjusted his high- dose vitamin D 2 daily low-dose vitamin-D supplements. 2. Chronic hypertension. Patient was continued on all of his home antihypertensives. 3. Anemia of chronic kidney disease. Patient received 1 dose of EPO during his hospitalization. 4. Chronic coronary artery disease. Patient was continued on all his home medications. 5. Acute metabolic acidosis. Secondary to uremia and end-stage renal disease, patient was continued on his oral supplemental bicarb and was dialyzed once. DISCHARGE MEDICATIONS: Please see official discharge medication reconciliation sheet in chart , continue all home medications, discontinue high-dose vitamin-D, begin 1000 units daily supplementation vitamin-D. DISCHARGE INSTRUCTIONS: Patient should return to the emergency department when he becomes symptomatic.
[2016-10-25 15:05] LABS: HEPATITIS Bs Ab QUANT <5.0 mIU/mL
== END 2016-10-24 10:57 | disposition home or self-care (01) ==
LOC: F2W 15:31
PROVIDERS: ADMIT Internal Medicine; ATTEND Internal Medicine
PROC: 5A1D00Z (ICD-10-PCS; principal; 2016-10-23)
DX: I12.0 Hypertensive chronic kidney disease with stage 5 chronic kidney disease or end stage renal disease (principal); N18.6 End stage renal disease; E87.2 Acidosis; D63.1 Anemia in chronic kidney disease; I25.10 Atherosclerotic heart disease of native coronary artery without angina pectoris; Z87.891 Personal history of nicotine dependence; K21.9 Gastro-esophageal reflux disease without esophagitis; K20.9 Esophagitis, unspecified; Z99.2 Dependence on renal dialysis
CPT/HCPCS: 86704-90; G0378; J0885; J1644

== ENCOUNTER 2016-10-30 16:27 | Inpatient (IN) | payer OTHER ==
--- NOTE | 2016-10-30 16:47 | CPEKG ---
Heart Rate: 59 RR Interval: 1017 P-R Interval: 180 QRSD Interval: 104 QT Interval: 464 QTC Interval: 460 P [place]: 69 QRS [place]: 67 T Wave [place]: 70 EKG Severity - NORMAL ECG - EKG Impression: SINUS RHYTHM Electronically Signed By: Gibson Victoria 30-Oct-2016 16:56:14
--- NOTE | 2016-10-30 16:49 | EDPHY ---
H & P Time Seen by Provider: 10/30/16 16:33 HPI/ROS: CHIEF COMPLAINT: Diarrhea, here for dialysis HISTORY OF PRESENT ILLNESS: 66-year-old male presents to the emergency department with diarrhea and requesting dialysis. He has a history of end- stage renal disease requiring dialysis. He states typically when he develops diarrhea, he has hyperkalemia and develops diarrhea. He is unable to obtain dialysis as an outpatient. He was last dialyzed when he was admitted to the hospital October 23, 2016. He states that he does make urine although he has been making less urine. Denies dysuria, urgency or frequency with urination. No blood in his stools. Denies fevers or chills. Denies abdominal pain or back pain. No cough, rhinorrhea or nasal congestion. No headache. He states that he has been taking his medications as prescribed. REVIEW OF SYSTEMS: Constitutional: No fever, no chills. Eyes: No double or blurry vision. ENT: No sore throat. Respiratory: No cough, no shortness of breath. Cardiac: No chest pain. Gastrointestinal: Diarrhea as above. No abdominal pain or vomiting. Genitourinary: No dysuria. Musculoskeletal: No neck or back pain. Skin: No rashes. Neurological: No headache. Past Medical/Surgical History: End-stage renal disease requiring dialysis, coronary artery disease, hypertension, GI bleed, GERD, chronic anemia, esophagitis Social History: Single from [facility] Smoking Status: Former smoker Physical Exam: General Appearance: Alert, no distress. 167/77, heart rate 62, 98% on room air , temperature 36.4, respirations 18. Eyes: Pupils equal and round. Extraocular motions are all intact. ENT: Mouth: Mucous membranes moist. Respiratory: No wheezing, rhonchi, or rales, lungs are clear to auscultation. IJ dialysis catheter in the right anterior aspect of his chest. Cardiovascular: Regular rate and rhythm. Gastrointestinal: Abdomen is soft and nontender, no masses, no rebound or guarding, bowel sounds normal. Neurological: Alert and oriented x 3, cranial nerves II through XII grossly intact Skin: Warm and dry, no rashes. Musculoskeletal: Nontender to palpate along the cervical, thoracic or lumbar spine. Neck is supple. Extremities: Full range of motion and no peripheral edema. Psychiatric: Patient is oriented X 3, there is no agitation. Constitutional: Initial Vital Signs Temperature (C) 36.4 C 10/30/16 16:29 Heart Rate 62 10/30/16 16:29 Respiratory Rate 18 10/30/16 16:29 Blood Pressure 167/77 H 10/30/16 16:29 O2 Sat (%) 98 10/30/16 16:29 O2 Delivery Mode Room Air Allergies/Adverse Reactions: No Known Allergies Allergy (Verified 10/30/16 16:28) Home Medications: Medication Instructions Recorded Atorvastatin Calcium [Lipitor 40 80 mg PO DAILY 10/30/16 mg (*)] Ergocalciferol [Vitamin D2 (*)] 50,000 unit PO TU@0800 10/30/16 Herbals/Supplements -Info Only 1 ea PO DAILY 10/30/16 Hydralazine HCl 25 mg PO DAILY@1200 10/30/16 Hydralazine HCl 50 mg PO BID 10/30/16 Metoprolol Succinate Xr [Toprol Xl 100 mg PO DAILY 10/30/16 100 mg (*)] Multivitamins [Multivitamin (*)] 1 each PO DAILY 10/30/16 Nitroglycerin [Nitrostat 0.4 mg 0.4 mg SL AD PRN 10/30/16 (*)] Pantoprazole Sodium [Protonix 40mg 40 mg PO BID 10/30/16 (*)] Sodium Bicarbonate [Na Bicarb 650 1,300 mg PO BID 10/30/16 MG (RX)] Vit B Cmplx 3/Folic AC/C/Biot 1 each PO DAILY 10/30/16 [Ev-Peyton Rx Tablet] amLODIPine BESYLATE [Norvasc 10 mg 10 mg PO DAILY 10/30/16 (*)] Medical Decision Making ED Course/Re-evaluation: 66-year-old male who is well-known to the hospital with end-stage renal disease presents with diarrhea and need for dialysis. Laboratory studies reveal hemoglobin of 8.2 and hematocrit of 25%. The patient has a history of chronic anemia. Potassium 6.2, sodium 145. BUN and creatinine are pending. Patient will be admitted to the hospitalist, Dr. Zia White, to the EACU with telemetry monitoring given his hyperkalemia. He will likely be dialyzed tomorrow. I spoke with the on-call television script writer, Dr. Stanley, who recommended that the patient received 30 g of Kayexalate and 1 amp of bicarb. Differential Diagnosis: Including but not limited to end-stage renal disease, electrolyte abnormality, dehydration - Data Points Laboratory Results: Laboratory Results 10/30/16 16:46 10/30/16 16:46 10/30/16 10/30/16 10/30/16 16:46 16:46 16:46 WBC 6.85 10^3/uL 10^3/uL (3.80-9.50) RBC 2.55 10^6/uL L 10^6/uL (4.40-6.38) Hgb 8.2 g/dL L g/dL (13.7-17.5) Hct 25.0 % L % (40.0-51.0) MCV 98.0 fL fL (81.5-99.8) MCH 32.2 pg pg (27.9-34.1) MCHC 32.8 g/dL g/dL (32.4-36.7) RDW 17.1 % H % (11.5-15.2) Plt Count 157 10^3/uL 10^3/uL (150-400) MPV 10.9 fL fL (8.7-11.7) Neut % (Auto) 70.4 % % (39.3-74.2) Lymph % (Auto) 11.7 % L % (15.0-45.0) [place] % (Auto) 7.0 % % (4.5-13.0) Eos % (Auto) 9.6 % H % (0.6-7.6) Baso % (Auto) 1.0 % % (0.3-1.7) Nucleat RBC Rel Count 0.0 % % (0.0-0.2) Absolute Neuts (auto) 4.82 10^3/uL 10^3/uL (1.70-6.50) Absolute Lymphs (auto) 0.80 10^3/uL L 10^3/uL (1.00-3.00) Absolute Monos (auto) 0.48 10^3/uL 10^3/uL (0.30-0.80) Absolute Eos (auto) 0.66 10^3/uL H 10^3/uL (0.03-0.40) Absolute Basos (auto) 0.07 10^3/uL 10^3/uL (0.02-0.10) Absolute Nucleated RBC 0.00 10^3/uL 10^3/uL (0-0.01) Immature Gran % 0.3 % % (0.0-1.1) Immature Gran # 0.02 10^3/uL 10^3/uL (0.00-0.10) Sodium 145 mEq/L H mEq/L (134-144) Potassium 6.2 mEq/L H mEq/L (3.5-5.2) Chloride 101 mEq/L mEq/L (97-110) Carbon Dioxide 18 mEq/l L mEq/l (22-31) Anion Gap 26 mEq/L H mEq/L (8-16) BUN 158 mg/dL H* mg/dL (7-23) Creatinine 18.1 mg/dL H* mg/dL (0.7-1.3) Estimated GFR 3 Glucose 118 mg/dL H mg/dL (70-100) Calcium 8.4 mg/dL L mg/dL (8.5-10.4) Hep Bs Antigen Pending Medications Given: Discontinued Medications Calcium Gluconate (Calcium Gluconate) 1 gm IVP EDNOW ONE Stop: 10/30/16 18:03 Last Admin: 10/30/16 18:25 Dose: 1 gm Dextrose (Dextrose 50% Syringe) 25 gm IVP EDNOW ONE Stop: 10/30/16 18:03 Last Admin: 10/30/16 18:25 Dose: 25 gm Insulin Human Regular 10 unit/Miscellaneous Medication 1 ea / Dextrose 500.1 mls @ 50 mls/hr IV EDNOW ONE Stop: 10/31/16 04:02 Last Admin: 10/30/16 19:49 Dose: Not Given Sodium Bicarbonate 150 meq/ (Dextrose) 1,150 mls @ 0 mls/hr IV EDNOW ONE PRN Reason: As Directed Stop: 10/30/16 18:03 Last Admin: 10/30/16 19:50 Dose: Not Given Insulin Human Regular (Humulin R) 10 unit IVP EDNOW ONE Stop: 10/30/16 18:03 Last Admin: 10/30/16 18:25 Dose: 10 units Sodium Polystyrene Sulfonate (Kayexalate) 30 gm KS EDNOW ONE Stop: 10/30/16 18:03 Last Admin: 10/30/16 19:49 Dose: Not Given Sodium Polystyrene Sulfonate (Kionex) 30 gm PO EDNOW ONE Stop: 10/30/16 19:31 Last Admin: 10/30/16 19:49 Dose: Not Given Departure - Departure Disposition: [facility] Acute Clinical Impression: Hyperkalemia, End stage renal disease Condition: Good
[2016-10-30 17:05] LABS: % IMMATURE GRANULYOCYTES 0.3 % (0.0-1.1); ABSOLUTE IMMATURE GRANULOCYTES 0.02 10^3/uL (0.00-0.10); ADD DIFF? NO; ADD MORPH? NO; ADD SCAN? NO; ATYPICAL LYMPHOCYTE FLAG 0 (0-99); FRAGMENT RBC FLAG 0 (0-99); HEMOGLOBIN 8.2 g/dL (13.7-17.5); LEFT SHIFT FLG 0 (0-99); LIPEMIA HEMOLYSIS FLAG 80 (0-99); MEAN CELL HEMOGLOBIN 32.2 pg (27.9-34.1); MEAN CELL HEMOGLOBIN CONCENTR. 32.8 g/dL (32.4-36.7); MEAN PLATELET VOLUME 10.9 fL (8.7-11.7); PLATELET CLUMPS FLAG 10 (0-99); PLATELET COUNT 157 10^3/uL (150-400); RED BLOOD CELL COUNT 2.55 10^6/uL (4.40-6.38); RED CELL DISTRIBUTION WIDTH 17.1 % (11.5-15.2)
[2016-10-30 17:29] LABS: ANION GAP 26 mEq/L (8-16); CALCIUM 8.4 mg/dL (8.5-10.4); CARBON DIOXIDE 18 mEq/l (22-31); CHLORIDE 101 mEq/L (97-110); GLUCOSE 118 mg/dL (70-100); POTASSIUM 6.2 mEq/L (3.5-5.2); SODIUM 145 mEq/L (134-144)
--- NOTE | 2016-10-30 17:49 | PDGENHP ---
History and Physical - Chief Complaint diarrhea - History of Present Illness 66 y/o male with ESRD last HD 10/23/16 at [facility] since he does not have outpatient dialysis benefits. He presents today with Diarrhea that started today. He denies any recent antibiotic use. He denies fever or chills. He feels as though his potassium is high. He denies any chest pain or shortness of breath. He is still able to make urine. History Information - Allergies/Home Medication List Allergies/Adverse Reactions: No Known Allergies Allergy (Verified 10/30/16 16:28) Home Medications: Atorvastatin Calcium [Lipitor 40 mg (*)] 80 mg PO DAILY 07/02/16 [Last Taken ] hydrALAZINE [Apresoline 50 mg (*)] 50 mg PO BID 07/02/16 [Last Taken 10/23/16] Herbals/Supplements -Info Only 1 ea PO DAILY 09/17/16 [Last Taken 10/15/16] Multivitamins [Multivitamin (*)] 1 each PO DAILY 09/17/16 [Last Taken 10/23/16] Nitroglycerin [Nitrostat 0.4 mg (*)] 0.4 mg SL Q5M PRN 09/17/16 [Last Taken ] Pantoprazole Sodium [Protonix 40mg (*)] 40 mg PO BID 09/17/16 [Last Taken ] amLODIPine BESYLATE [Norvasc 10 mg (*)] 10 mg PO DAILY 09/17/16 [Last Taken ] hydrALAZINE [Apresoline 50 mg (*)] 25 mg PO DAILY@12 09/17/16 [Last Taken ] Vit B Cmplx 3/Folic AC/C/Biot [Ev-Peyton Rx Tablet] 1 each PO DAILY 10/08/16 [ Last Taken 10/23/16] I have personally reviewed and updated: family history, medical history, social history, surgical history - Past Medical History coronary artery disease (Known coronary disease but has not undergone interventional cardiac catheterization), GI bleed, GERD (Anemia of chronic disease, H/O UGIB x2 (first on Plavix +ASA, then on ASA alone), esophagitis), hypertension Additional medical history: Anemia of chronic kidney disease; upper GI bleed in the setting of anti-platelet medications, has occurred while on single and double agent therapy; 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; esophagitis - Surgical History Additional surgical history: R IJ tunneled catheter - Family History Additional family history: Mother with CVA and HTN - Social History Smoking Status: Former smoker Additional social history: Continues to work on non-HD days Review of Systems ROS: 10pt was reviewed & negative except for what was stated in HPI & below Physical Exam Temp Pulse Resp BP Pulse Ox 36.4 C 62 18 149/69 H 96 10/30/16 16:29 10/30/16 17:41 10/30/16 17:41 10/30/16 17:41 10/30/16 17:41 Constitutional: no apparent distress, appears nourished, not in pain Eyes: PERRL, anicteric sclera, EOMI Ears, Nose, Mouth, Throat: moist mucous membranes, hearing normal, ears appear normal, no oral mucosal ulcers Cardiovascular: regular rate and rhythym, no murmur, rub, or gallop, other ( dialysis catheter in right chest), No edema Respiratory: no respiratory distress, no rales or rhonchi, clear to auscultation Gastrointestinal: normoactive bowel sounds, soft, non-tender abdomen, no palpable masses Genitourinary: no bladder fullness, no bladder tenderness Skin: warm, normal color, no rashes or abrasions, no fluctuance, no induration, No mottled Musculoskeletal: full muscle strength, no muscle tenderness, normal joint ROM, no joint effusions Neurologic: AAOx3, CN II-XII Intact, No facial droop Psychiatric: interacting appropriately, not anxious, not encephalopathic, thought process linear Lymph, Heme, Immunologic: no cervical LAD, no supraclavicular LAD Lab Data & Imaging Review 10/30/16 16:46 10/30/16 16:46 WBC 6.85 10^3/uL (3.80-9.50) 10/30/16 16:46 RBC 2.55 10^6/uL (4.40-6.38) L 10/30/16 16:46 Hgb 8.2 g/dL (13.7-17.5) L 10/30/16 16:46 Hct 25.0 % (40.0-51.0) L 10/30/16 16:46 MCV 98.0 fL (81.5-99.8) 10/30/16 16:46 MCH 32.2 pg (27.9-34.1) 10/30/16 16:46 MCHC 32.8 g/dL (32.4-36.7) 10/30/16 16:46 RDW 17.1 % (11.5-15.2) H 10/30/16 16:46 Plt Count 157 10^3/uL (150-400) 10/30/16 16:46 MPV 10.9 fL (8.7-11.7) 10/30/16 16:46 Neut % (Auto) 70.4 % (39.3-74.2) 10/30/16 16:46 Lymph % (Auto) 11.7 % (15.0-45.0) L 10/30/16 16:46 [place] % (Auto) 7.0 % (4.5-13.0) 10/30/16 16:46 Eos % (Auto) 9.6 % (0.6-7.6) H 10/30/16 16:46 Baso % (Auto) 1.0 % (0.3-1.7) 10/30/16 16:46 Nucleat RBC Rel Count 0.0 % (0.0-0.2) 10/30/16 16:46 Absolute Neuts (auto) 4.82 10^3/uL (1.70-6.50) 10/30/16 16:46 Absolute Lymphs (auto) 0.80 10^3/uL (1.00-3.00) L 10/30/16 16:46 Absolute Monos (auto) 0.48 10^3/uL (0.30-0.80) 10/30/16 16:46 Absolute Eos (auto) 0.66 10^3/uL (0.03-0.40) H 10/30/16 16:46 Absolute Basos (auto) 0.07 10^3/uL (0.02-0.10) 10/30/16 16:46 Absolute Nucleated RBC 0.00 10^3/uL (0-0.01) 10/30/16 16:46 Immature Gran % 0.3 % (0.0-1.1) 10/30/16 16:46 Immature Gran # 0.02 10^3/uL (0.00-0.10) 10/30/16 16:46 Sodium 145 mEq/L (134-144) H 10/30/16 16:46 Potassium 6.2 mEq/L (3.5-5.2) H 10/30/16 16:46 Chloride 101 mEq/L (97-110) 10/30/16 16:46 Carbon Dioxide 18 mEq/l (22-31) L 10/30/16 16:46 Anion Gap 26 mEq/L (8-16) H 10/30/16 16:46 Glucose 118 mg/dL (70-100) H 10/30/16 16:46 Calcium 8.4 mg/dL (8.5-10.4) L 10/30/16 16:46 Visualized and Interpreted EKG results: Yes EKG Interpretation: Positive for: other (peaked t waves). Negative for: ST elevation, ST depression Assessment & Plan Assessment: 66 y/o male with ESRD requiring dialysis presenting with #hyperkalemia with peaked T waves -nephrology has been called by ED for HD -calcium/bicarb/insulin/Kayexalate -monitor on tele #ESRD -HD per nephro #Diarrhea -monitor and consider testing for c-diff if not improving #Anemia of chronic disease
[2016-10-30 17:56] LABS: GLOMERULAR FILTRATION RATE 3
[2016-10-30 17:59] LABS: CREATININE 18.1 mg/dL (0.7-1.3)
[2016-10-30] MEDS ORDERED: INSULIN REGULAR HUMAN 100 UNIT/ML IVP ONE (18:02)
[2016-10-30] MEDS ORDERED: SODIUM POLY SULF 15 GM/60 ML BOTTLE PR ONE (18:02)
[2016-10-30] MEDS ORDERED: INSULIN REGULAR HUMAN 10 UNIT, COSIGN. REQUIRED 1 EA in D10W 500 ML IV ONE (18:02)
[2016-10-30] MEDS ORDERED: SODIUM BICARBONATE 150 MEQ in D5W 1,000 ML IV ONE (18:02)
[2016-10-30] MEDS ORDERED: D50W 25 GM/50 ML SYR IVP ONE (18:02)
[2016-10-30] MEDS ORDERED: CALCIUM GLUC 10% 1 GM/10 ML VIAL IVP ONE (18:02)
--- NOTE | 2016-10-30 18:56 | SOAPPROG ---
JACQUELINE Progress Note Assessment/Plan: Assessment:Plan: ESRD-patient presents with hyperkalemia at end of day -clinically stable -will Rx with medication now -plan for dialysis tomorrow -short dialysis to reduce risk of dialysis dysequilibrium Hyperkalemia-given calcium, bicarbonate, D50 and insulin -patient declines liquid kayexalate due to side effect of diarrhea from the sorbitol in this medication -will give powdered kionex in applesauce as alternative, which should work well Access-tunneled catheter 10/30/16 18:53 Subjective: I had business to do, so I came in now Objective: Vital Signs Temp Pulse Resp BP Pulse Ox 36.4 C 62 18 149/69 H 96 10/30/16 16:29 10/30/16 17:41 10/30/16 17:41 10/30/16 17:41 10/30/16 17:41 Physical Exam - Physical Exam General Appearance: alert, no apparent distress EENT: normal ENT inspection Neck: normal inspection Respiratory: lungs clear, normal breath sounds, No respiratory distress Cardiac/Chest: regular rate, rhythm, No diastolic murmur, No systolic murmur, No friction rub Abdomen: normal bowel sounds, non-tender Extremities: No swelling ICD10 Worksheet Patient Problems: Problems Problem Status Onset End stage renal disease Acute Hyperkalemia Acute Abdominal pain Acute Acute renal failure Acute Acute upper GI bleed Acute Anemia Acute Anemia associated with acute blood loss Acute Chronic renal failure Acute Diarrhea Acute Hyperkalemia Acute Hyperkalemia Acute Hyperkalemia Acute Hyperkalemia Acute Hyperkalemia Acute Hypertension Acute Hypocalcemia Acute Kidney failure Acute Kidney failure Acute Kidney failure Acute Metabolic acidosis Acute Renal failure Acute Shingles (herpes zoster) polyneuropathy Acute Uremia Acute
[2016-10-30] MEDS ORDERED: SODIUM POLY SULF 15 GM/60 ML BOTTLE PO ONE (19:00)
[2016-10-30] MEDS: SODIUM POLYSTYRENE SULF 454 GM POWDER PO ONE ×2 (19:13→19:49)
[2016-10-31] MEDS ORDERED: Herbals/Supplements -Info Only PO SCH (09:00)
[2016-10-31] MEDS: SODIUM BICARBONATE 650 MG TAB PO SCH ×2 (09:59→20:56)
[2016-10-31] MEDS: ATORVASTATIN CALCIUM 40 MG TAB PO SCH (09:59)
[2016-10-31] MEDS: PANTOPRAZOLE SODIUM 40 MG TAB PO SCH ×2 (10:00→20:56)
[2016-10-31] MEDS: METOPROLOL SUCCINATE XR 100 MG TAB PO SCH (10:00)
[2016-10-31] MEDS: MULTIVITAMINS 1 EACH TAB PO SCH (10:00)
[2016-10-31] MEDS: NEPHROVITE FOLIC ACID/VIT B&C 1 TAB PO SCH (10:00)
[2016-10-31] MEDS ORDERED: hydrALAZINE 25 MG TAB PO SCH (12:00)
--- NOTE | 2016-10-31 12:16 | HOSPPROG ---
Hospitalist Progress Note Assessment/Plan: ESRD presenting with hyperkalemia - dialysis today, renal following. Anemia of ESRD - hgb stable, follow. CAD - chest pain free. Cont outpt regimen Dispo - change to inpt, will require ongoing hospitalization for dialysis needs and hyperkalemia. Subjective: Pt is tired, resting after dialysis. Denies CP or SOB. No fevers. Objective: Vital Signs Temp Pulse Resp BP Pulse Ox 36.4 C 67 14 145/68 H 95 10/31/16 11:33 10/31/16 11:33 10/31/16 11:33 10/31/16 11:33 10/31/16 11:33 10/30/16 10/31/16 11/01/16 05:59 05:59 05:59 Intake Total 640 Balance 640 - Physical Exam Constitutional: chronically ill appearing Eyes: PERRL Ears, Nose, Mouth, Throat: moist mucous membranes Cardiovascular: regular rate and rhythym, no murmur, rub, or gallop Respiratory: no respiratory distress, clear to auscultation Gastrointestinal: normoactive bowel sounds, soft, non-tender abdomen Skin: warm Musculoskeletal: full muscle strength Neurologic: AAOx3 Psychiatric: interacting appropriately ICD10 Worksheet Patient Problems: Problems Problem Status Onset End stage renal disease Acute Hyperkalemia Acute Abdominal pain Acute Acute renal failure Acute Acute upper GI bleed Acute Anemia Acute Anemia associated with acute blood loss Acute Chronic renal failure Acute Diarrhea Acute Hyperkalemia Acute Hyperkalemia Acute Hyperkalemia Acute Hyperkalemia Acute Hyperkalemia Acute Hypertension Acute Hypocalcemia Acute Kidney failure Acute Kidney failure Acute Kidney failure Acute Metabolic acidosis Acute Renal failure Acute Shingles (herpes zoster) polyneuropathy Acute Uremia Acute
--- NOTE | 2016-10-31 14:47 | SOAPPROG ---
SOEDY Progress Note Assessment/Plan: Assessment: 1. Critical hyperkalemia. 6.2 yesterday. Dialyzed this am. Will dialyze again tomorrow. 2. ESRD. Undocumented without outpatient benefits. Will continue to have labs drawn routinely, return for emergent indications. 3. Anemia of ESRD. Hgb 8.2. Give dose of procrit. Fe stores fine last week. 4. Renal bone disease. Vit D 25 61 last week. D/c ergocalciferol. Check PTH, P. Plan: 10/31/16 14:40 10/31/16 14:41 10/31/16 14:47 10/31/16 14:48 10/31/16 14:49 Subjective: Had 2 h of hemodialysis this am. Was very tired, feeling a little better now. He is last survivor of 3 siblings in his family. He has no children but does have nephews and nieces in [facility]. Objective: Vital Signs Temp Pulse Resp BP Pulse Ox 36.4 C 67 14 145/68 H 95 10/31/16 11:33 10/31/16 11:33 10/31/16 11:33 10/31/16 11:33 10/31/16 11:33 10/30/16 10/31/16 11/01/16 05:59 05:59 05:59 Intake Total 640 Balance 640 Comfortable, in bed RRR, no m/g/r CTAB Abdom soft, nontender no edema ICD10 Worksheet Patient Problems: Problems Problem Status Onset Acute renal failure Acute Anemia Acute Abdominal pain Acute Hyperkalemia Acute Hypocalcemia Acute Renal failure Acute Hypertension Acute Acute upper GI bleed Acute Anemia associated with acute blood loss Acute End stage renal disease Acute Metabolic acidosis Acute Diarrhea Acute Shingles (herpes zoster) polyneuropathy Acute Kidney failure Acute Hyperkalemia Acute Chronic renal failure Acute Hyperkalemia Acute Kidney failure Acute Hyperkalemia Acute Kidney failure Acute Uremia Acute Hyperkalemia Acute Hyperkalemia Acute
[2016-10-31] MEDS ORDERED: EPOETIN ALFA 10,000 UNIT/ML VIAL SC SCH (15:00)
[2016-10-31] MEDS ORDERED: NS 100 ML IV PRN (15:23)
[2016-10-31] MEDS ORDERED: HEPARIN 50,000 UNIT/10 ML VIAL ONE (18:21)
[2016-11-01 05:31] LABS: ALBUMIN 3.4 g/dL (3.5-5.0); ANION GAP 14 mEq/L (8-16); CALCIUM 7.8 mg/dL (8.5-10.4); CARBON DIOXIDE 22 mEq/l (22-31); CHLORIDE 104 mEq/L (97-110); GLOMERULAR FILTRATION RATE 4; GLUCOSE 89 mg/dL (70-100); SODIUM 140 mEq/L (134-144)
[2016-11-01 05:37] LABS: PTH INTACT NO MINERALS 305.3 pg/ml (10.8-79.4)
[2016-11-01 06:03] LABS: CREATININE 12.1 mg/dL (0.7-1.3)
[2016-11-01 07:16] VITALS: RESP 12; O2SAT 91
[2016-11-01] MEDS ORDERED: SODIUM POLY SULF 15 GM/60 ML BOTTLE PO ONE (08:04)
--- NOTE | 2016-11-01 11:02 | SOAPPROG ---
SOEDY Progress Note Assessment/Plan: Assessment: 1. Critical hyperkalemia. 6.2 yesterday, 6 today after short dialysis yesterday. Dialyze again today for 3 h. If K < 5 at end can d/c, o/w would keep and dialyze again tomorrow. 2. ESRD. Undocumented without outpatient benefits. Will continue to have labs drawn routinely, return for emergent indications. 3. Anemia of ESRD. Hgb 8.2. Gave dose of procrit. Fe stores fine last week. 4. Renal bone disease. Vit D 25 61 last week. D/c ergocalciferol. Check PTH, P both at goal. No need for calcitriol. Ca low. Start tums qac. 5. Malnutrition. Drinking nephro. Increase protein intake. 6. HTN. BP running on high side. Increase hydralazine to 50 mg TID. Plan: 10/31/16 14:40 10/31/16 14:41 10/31/16 14:47 10/31/16 14:48 10/31/16 14:49 11/01/16 11:00 11/01/16 11:02 11/01/16 11:02 11/01/16 11:03 11/01/16 11:04 Subjective: No complaints. Seen and examined on dialysis. Really wants to leave today. Objective: Vital Signs Temp Pulse Resp BP Pulse Ox 36.7 C 61 12 157/78 H 91 L 11/01/16 07:12 11/01/16 07:12 11/01/16 07:12 11/01/16 07:12 11/01/16 07:12 Laboratory Results 11/01/16 04:05 10/31/16 11/01/16 11/02/16 05:59 05:59 05:59 Intake Total 550 Balance 550 RRR, no m/g/r On dialysis. Qb 300 CTAB Abdom soft, nt No LE edema ICD10 Worksheet Patient Problems: Problems Problem Status Onset Acute renal failure Acute Anemia Acute Abdominal pain Acute Hyperkalemia Acute Hypocalcemia Acute Renal failure Acute Hypertension Acute Acute upper GI bleed Acute Anemia associated with acute blood loss Acute End stage renal disease Acute Metabolic acidosis Acute Diarrhea Acute Shingles (herpes zoster) polyneuropathy Acute Kidney failure Acute Hyperkalemia Acute Chronic renal failure Acute Hyperkalemia Acute Kidney failure Acute Hyperkalemia Acute Kidney failure Acute Uremia Acute Hyperkalemia Acute Hyperkalemia Acute
[2016-11-01] MEDS: NEPHROVITE FOLIC ACID/VIT B&C 1 TAB PO SCH (11:10)
[2016-11-01] MEDS: PANTOPRAZOLE SODIUM 40 MG TAB PO SCH (11:10)
[2016-11-01] MEDS: SODIUM BICARBONATE 650 MG TAB PO SCH (11:10)
[2016-11-01] MEDS: MULTIVITAMINS 1 EACH TAB PO SCH (11:11)
[2016-11-01] MEDS: METOPROLOL SUCCINATE XR 100 MG TAB PO SCH (11:11)
[2016-11-01] MEDS: ATORVASTATIN CALCIUM 40 MG TAB PO SCH (11:11)
[2016-11-01] MEDS ORDERED: HEPARIN 50,000 UNIT/10 ML VIAL ONE (11:49)
[2016-11-01 11:54] LABS: POTASSIUM 3.5 mEq/L (3.5-5.2)
[2016-11-01] MEDS ORDERED: CALCIUM CARBONATE 500 MG CHEWABLE TAB PO SCH (12:00)
[2016-11-01 13:05] VITALS: BP 157/73; PULSE 58; TEMP 98.2
--- NOTE | 2016-11-01 14:13 | GDS ---
[f rep st] DISCHARGE SUMMARY DISCHARGE DIAGNOSES: 1. End-stage renal disease. 2. Hyperkalemia. 3. Anemia of chronic kidney disease. 4. Coronary artery disease. CONSULTANTS: Dr. Mccormack, Nephrology. HISTORY: For details, please see dictated history and physical dated October 30, 2016, by Dr. Zia woodruff. In brief, the patient is a 66-year-old male well known to our service who has a history of end-stage renal disease without outpatient dialysis benefits, who is admitted to the hospital for emergent di alysis in the setting of critical hyperkalemia. HOSPITAL COURSE: The patient was admitted to the med/surg unit. His potassium on arrival was 6.2. He received calcium gluconate, bicarb, insulin, Kayexalate. Nephrology was consulted. He underwen t dialysis for 2 consecutive days. His repeat potassium after his 2nd course of dialysis came down to 3.5. He received a dose of Procrit for his anemia. Per the recommendations of Nephrology, his e rgocalciferol and calcitriol are discontinued, and he will be discharged on q.a.c. Tums. He had no chest pain. Throughout his hospitalization was continued on his usual statin medication. He no elroy odell takes aspirin due to his history of GI bleeding. DISPOSITION: Patient is discharged home in stable condition. FOLLOWUP: He will follow up Dr. Negro and return to the hospital for emergent dialysis needs. DISCHARGE MEDICATIONS: Please see [facility]ift[facility]It for complete updated outpatient medication list. There are no new medications on hospital discharge. /[id number]/MODL
[2016-11-06] MEDS ORDERED: ERGOCALCIFEROL 50,000 I.UNIT CAP PO SCH (08:00)
== END 2016-11-01 16:55 | disposition home or self-care (01) | DRG 682 ==
LOC: F2W 20:02 → OBSVTOIN 10-31 16:16
PROVIDERS: ADMIT Family Medicine; ATTEND Hospitalist
PROC: 5A1D60Z (ICD-10-PCS; principal; 2016-10-31)
DX: I12.0 Hypertensive chronic kidney disease with stage 5 chronic kidney disease or end stage renal disease (principal); N18.6 End stage renal disease; E87.5 Hyperkalemia; Z99.2 Dependence on renal dialysis; I25.10 Atherosclerotic heart disease of native coronary artery without angina pectoris; K21.9 Gastro-esophageal reflux disease without esophagitis; D63.1 Anemia in chronic kidney disease; Z87.891 Personal history of nicotine dependence; E46 Unspecified protein-calorie malnutrition
CPT/HCPCS: G0378; J0610; J0885; J1644; J1815

== ENCOUNTER 2016-11-06 12:09 | Inpatient (IN) | payer OTHER ==
--- NOTE | 2016-11-06 12:19 | EDPHY ---
H & P Time Seen by Provider: 11/06/16 12:19 HPI/ROS: CHIEF COMPLAINT: Diarrhea, I think my potassium is high HISTORY OF PRESENT ILLNESS: 66-year-old man last presented for dialysis on October 30. He has end-stage renal disease and does not have access to outpatient dialysis. He presents today with diarrhea in his usual symptoms of hyperkalemia. New today are some right leg pain in his knee and a rash in his right ankle. REVIEW OF SYSTEMS: Eye: no change in vision ENT: no sore throat Cardiac: no chest pain or syncope Pulmonary: no cough or SOB Abdomen: No abdominal pain or vomiting Musculoskeletal: no back pain, some right leg pain. Skin: Right ankle rash Neuro: no headache Constitutional: no fever : no urinary symptoms A comprehensive 10 point review of systems is otherwise negative aside from elements mentioned in the history of present illness. PAST MEDICAL HISTORY: Dialysis without access to outpatient Social history: Former smoker, still working on his non dialysis days. General Appearance: Alert and conversant, cooperative. Eyes: No scleral icterus. ENT, Mouth: Normal mucous membranes. Respiratory: Normal respiratory effort, breath sounds equal, lungs are clear to auscultation. Cardiovascular: Regular rate and rhythm. Right subclavian dialysis catheter in place. Gastrointestinal: Abdomen is soft and non tender. Neurological: Alert and oriented x3. Normally conversant. Face symmetric, normal movement and sensation in all extremities. Skin: Patient has some scabs on his right ankle posteriorly near the Achilles. No surrounding redness or warmth and no pus or drainage or discharge. Has some venous stasis changes bilaterally. Not tender. No lymphangitis. Musculoskeletal: No peripheral edema and no joint swelling. Normal range of motion of both knees. Psychiatric: Not agitated. Emergency Department course/MDM: I-STAT, EKG, right leg ultrasound. 1320: Potassium 5.9, calcium insulin and glucose given in ED. Kayexalate 30 g requested by on-call dispensary attendant. Smoking Status: Former smoker Constitutional: Initial Vital Signs Temperature (C) 36.4 C 11/06/16 12:14 Heart Rate 61 11/06/16 12:14 Respiratory Rate 16 11/06/16 12:14 Blood Pressure 160/68 H 11/06/16 12:14 O2 Sat (%) 98 11/06/16 12:14 O2 Delivery Mode Room Air Allergies/Adverse Reactions: No Known Allergies Allergy (Verified 11/06/16 12:13) Home Medications: Medication Instructions Recorded Atorvastatin Calcium [Lipitor 40 80 mg PO DAILY 10/30/16 mg (*)] Herbals/Supplements -Info Only 1 ea PO DAILY 10/30/16 Hydralazine HCl 25 mg PO DAILY@1200 10/30/16 Metoprolol Succinate Xr [Toprol Xl 100 mg PO DAILY 10/30/16 100 mg (*)] Multivitamins [Multivitamin (*)] 1 each PO DAILY 10/30/16 Nitroglycerin [Nitrostat 0.4 mg 0.4 mg SL AD PRN 10/30/16 (*)] Sodium Bicarbonate [Na Bicarb] 1,300 mg PO BID 10/30/16 Vit B Cmplx 3/Folic AC/C/Biot 1 each PO DAILY 10/30/16 [Ev-Peyton Rx Tablet] amLODIPine BESYLATE [Norvasc 10 mg 10 mg PO DAILY 10/30/16 (*)] Calcium Carbonate [Tums 500MG (*)] 500 mg PO TIDMEAL #90 tab.chew 11/01/16 Hydralazine HCl 50 mg PO TID #90 tablet 11/01/16 Pantoprazole Sodium [Protonix 40mg 40 mg PO BID #60 tab 11/01/16 (*)] Medical Decision Making - Diagnostics EKG Interpretation: 12-lead EKG interpreted by me; official reading is in trace master. My interpretation is sinus rhythm with borderline prolonged QT, QRS 88. Imaging Results: Imaging Impressions Extremity Venous Study 11/06/16 12:32 Impression: No evidence of deep vein thrombosis in the right lower extremity. Results called to Dr. Teran. Differential Diagnosis: Differential for diarrhea considered including but not limited to hyperkalemia, infectious diarrhea, gastroenteritis, GI bleed. Consult/Admit Bed Type: [facility], 1332; [facility] 1400 Critical Care Time: Critical care time spent by me, Dr. Teran, exclusively with the care of this patient was 30 minutes, exclusive of PA or MATHEMATICAL TECHNICIAN time and exclusive of separate procedures. The organ system at risk was metabolic and I ordered IV insulin and glucose, IV calcium, oral Kayexalate, discussion with hospitalist and dispensary attendant; to stabilize the patient and prevent worsening of the patient's condition. - Data Points Laboratory Results: Laboratory Results 11/06/16 12:31 11/06/16 12:31 11/06/16 11/06/16 12:31 12:31 WBC 6.03 10^3/uL 10^3/uL (3.80-9.50) RBC 2.38 10^6/uL L 10^6/uL (4.40-6.38) Hgb 7.6 g/dL L g/dL (13.7-17.5) Hct 23.5 % L % (40.0-51.0) MCV 98.7 fL fL (81.5-99.8) MCH 31.9 pg pg (27.9-34.1) MCHC 32.3 g/dL L g/dL (32.4-36.7) RDW 16.0 % H % (11.5-15.2) Plt Count 132 10^3/uL L 10^3/uL (150-400) MPV 11.0 fL fL (8.7-11.7) Neut % (Auto) 67.9 % % (39.3-74.2) Lymph % (Auto) 13.1 % L % (15.0-45.0) [place] % (Auto) 7.3 % % (4.5-13.0) Eos % (Auto) 10.4 % H % (0.6-7.6) Baso % (Auto) 1.0 % % (0.3-1.7) Nucleat RBC Rel Count 0.0 % % (0.0-0.2) Absolute Neuts (auto) 4.09 10^3/uL 10^3/uL (1.70-6.50) Absolute Lymphs (auto) 0.79 10^3/uL L 10^3/uL (1.00-3.00) Absolute Monos (auto) 0.44 10^3/uL 10^3/uL (0.30-0.80) Absolute Eos (auto) 0.63 10^3/uL H 10^3/uL (0.03-0.40) Absolute Basos (auto) 0.06 10^3/uL 10^3/uL (0.02-0.10) Absolute Nucleated RBC 0.00 10^3/uL 10^3/uL (0-0.01) Immature Gran % 0.3 % % (0.0-1.1) Immature Gran # 0.02 10^3/uL 10^3/uL (0.00-0.10) Sodium 143 mEq/L mEq/L (134-144) Potassium 5.9 mEq/L H mEq/L (3.5-5.2) Chloride 99 mEq/L mEq/L (97-110) Carbon Dioxide 23 mEq/l mEq/l (22-31) Anion Gap 21 mEq/L H mEq/L (8-16) BUN 116 mg/dL H* mg/dL (7-23) Creatinine 13.9 mg/dL H* mg/dL (0.7-1.3) Estimated GFR 4 Glucose 128 mg/dL H mg/dL (70-100) Calcium 6.5 mg/dL L mg/dL (8.5-10.4) Total Bilirubin 0.6 mg/dL mg/dL (0.1-1.4) AST 24 IU/L IU/L (17-59) ALT 40 IU/L IU/L (21-72) Alkaline Phosphatase 117 IU/L IU/L (38-126) Total Protein 6.5 g/dL g/dL (6.3-8.2) Albumin 4.2 g/dL g/dL (3.5-5.0) Medications Given: Discontinued Medications Dextrose (Dextrose 50% Syringe) 25 gm IVP EDNOW ONE Stop: 11/06/16 13:21 Last Admin: 11/06/16 14:53 Dose: 25 gm Calcium Gluconate (Calcium Gluconate 1 Gm (Premix)) 50 mls @ 100 mls/hr IV EDNOW ONE Stop: 11/06/16 13:49 Last Admin: 11/06/16 14:17 Dose: 50 mls Insulin Human Regular (Humulin R) 10 unit IVP EDNOW ONE Stop: 11/06/16 13:21 Last Admin: 11/06/16 14:54 Dose: 10 units Sodium Polystyrene Sulfonate (Kayexalate) 30 gm PO EDNOW ONE Stop: 11/06/16 13:33 Last Admin: 11/06/16 14:54 Dose: Not Given Departure - Departure Disposition: [facility] Acute Clinical Impression: Hyperkalemia, Kidney failure, End stage renal disease Condition: Fair
--- NOTE | 2016-11-06 12:26 | CPEKG ---
Heart Rate: 59 RR Interval: 1017 P-R Interval: 172 QRSD Interval: 88 QT Interval: 488 QTC Interval: 484 P [place]: 82 QRS [place]: 71 T Wave [place]: 71 EKG Severity - BORDERLINE ECG - EKG Impression: SINUS RHYTHM EKG Impression: BORDERLINE PROLONGED QT INTERVAL Electronically Signed By: Esteban Teran 06-Nov-2016 13:25:08
[2016-11-06 12:42] LABS: % IMMATURE GRANULYOCYTES 0.3 % (0.0-1.1); ABSOLUTE IMMATURE GRANULOCYTES 0.02 10^3/uL (0.00-0.10); ADD DIFF? NO; ADD MORPH? NO; ADD SCAN? NO; ATYPICAL LYMPHOCYTE FLAG 0 (0-99); FRAGMENT RBC FLAG 0 (0-99); HEMATOCRIT 23.5 % (40.0-51.0); HEMOGLOBIN 7.6 g/dL (13.7-17.5); LEFT SHIFT FLG 0 (0-99); LIPEMIA HEMOLYSIS FLAG 80 (0-99); MEAN CELL HEMOGLOBIN 31.9 pg (27.9-34.1); MEAN CELL HEMOGLOBIN CONCENTR. 32.3 g/dL (32.4-36.7); MEAN CELL VOLUME 98.7 fL (81.5-99.8); PLATELET CLUMPS FLAG 10 (0-99); PLATELET COUNT 132 10^3/uL (150-400); RED BLOOD CELL COUNT 2.38 10^6/uL (4.40-6.38)
[2016-11-06 13:04] LABS: ALANINE AMINOTRANSFERASE 40 IU/L (21-72); ALBUMIN 4.2 g/dL (3.5-5.0); ALKALINE PHOSPHATASE 117 IU/L (38-126); ANION GAP 21 mEq/L (8-16); ASPARTATE AMINOTRANSFERASE 24 IU/L (17-59); BILIRUBIN,TOTAL 0.6 mg/dL (0.1-1.4); CALCIUM 6.5 mg/dL (8.5-10.4); CARBON DIOXIDE 23 mEq/l (22-31); CHLORIDE 99 mEq/L (97-110); GLUCOSE 128 mg/dL (70-100); POTASSIUM 5.9 mEq/L (3.5-5.2); SODIUM 143 mEq/L (134-144); TOTAL PROTEIN 6.5 g/dL (6.3-8.2)
[2016-11-06 13:13] LABS: CREATININE 13.9 mg/dL (0.7-1.3); GLOMERULAR FILTRATION RATE 4
[2016-11-06] MEDS ORDERED: D50W 25 GM/50 ML SYR IVP ONE (13:20)
[2016-11-06] MEDS ORDERED: INSULIN REGULAR HUMAN 100 UNIT/ML IVP ONE (13:20)
[2016-11-06] MEDS ORDERED: CALCIUM GLUCONATE 50 ML IV ONE (13:20)
[2016-11-06] MEDS ORDERED: SODIUM POLY SULF 15 GM/60 ML BOTTLE PO ONE (13:32)
[2016-11-06] MEDS ORDERED: ACETAMINOPHEN 325 MG TAB PO PRN (14:20)
[2016-11-06] MEDS ORDERED: ONDANSETRON 4 MG/2 ML VIAL IVP PRN (14:20)
[2016-11-06] MEDS ORDERED: ONDANSETRON DISINTEGRATING 4 MG TAB PO PRN (14:20)
--- NOTE | 2016-11-06 14:57 | GHP ---
[f rep st] HISTORY AND PHYSICAL DATE OF ADMISSION: 11/06/2016 HISTORY OF PRESENT ILLNESS: The patient is a pleasant 66-year-old gentleman with end-stage renal di sease and coronary disease, who presents with diarrhea. This is typically how he presents when he h as not had dialysis in a number of days. His last visit here was on the with discharge shortly thereafter. He has had no pain or discharge from his dialysis catheter. No fever or chills. No s hortness of breath. He does note some increased lower extremity edema. He also has some skin break down on his posterior right heel. He is not short of breath. REVIEW OF SYSTEMS: Complete 10-point review of systems conducted and negative, except as noted in t he HPI. PAST MEDICAL HISTORY: 1. End-stage renal disease. 2. Coronary artery disease. 3. History of GI bleed, on Plavix. 4. GERD. 5. Anemia of chronic kidney disease. 6. Esophagitis. 7. Hypertension. 8. Tunneled right IJ catheter. FAMILY HISTORY: Notable for CVA and hypertension. ALLERGIES: No known drug allergies. MEDICATIONS: Amlodipine, hydralazine, Ev Peyton, sodium bicarbonate, pantoprazole, nitroglycerin, T oprol-XL, herbals, vitamin D2, atorvastatin, acetaminophen. He had been on aspirin and Plavix previ ously, but had a GI bleed and these were thus stopped. SOCIAL HISTORY: No access to dialysis. No tobacco. No alcohol. PHYSICAL EXAMINATION: VITAL SIGNS: Temp 36.4, blood pressure 160/68, pulse 61, breathing 16 times a minute, 98% on room air. GENERAL: No acute distress. HEENT: Sclerae anicteric. Oropharynx dana ar. Mucous membranes moist. NECK: Supple, without lymphadenopathy or JVD. LUNGS: Clear to auscu ltation bilaterally. His tunneled catheter is clean, dry and intact without purulence or erythema. HEART: S1 and S2, without murmurs. ABDOMEN: Soft, nontender, nondistended. LOWER EXTREMITIES: Show trace edema bilaterally. On the posterior of his right heel over his Achilles tendon, there is some evidence of old skin breakdown. There is no active wound. There is no pus. There is no puru lence. LABS: White count 6, hematocrit 22.5 (that is about his baseline), platelets are 132,000. Sodium 1 43, potassium 5.9, chloride 99, bicarb 22, BUN 116, creatinine 13.9, glucose 128. LFTs normal. IMAGING: EKG interpreted by me shows sinus rhythm with normal axis and intervals. There are no hyp eracute T-waves. It is at his baseline. I have discussed the case with Dr. Esteban Teran. ASSESSMENT AND PLAN: A 66-year-old gentleman here with end-stage renal disease who needs hemodialys is. 1. End-stage renal disease. He does not need emergent dialysis, but he does need it. He has volum e overload, acidosis and uremia. Dialysis will be instituted. He already has access. 2. Heel wound. I do not think this looks infected. I will have Wound Care see him. 3. Coronary disease. Will continue his medications once they have been reconciled. 4. Hyperkalemia. This is mild. This is pretty much where he presents. I will follow him on telem etry, but specific management otherwise is probably not necessary. DISPOSITION: Inpatient status. He definitely requires a couple of sessions of dialysis prior to stefani suarez. /[id number]/MODL
[2016-11-06] MEDS ORDERED: NITROGLYCERIN 0.4 MG BTL SL PRN (17:57)
[2016-11-06] MEDS: CALCIUM CARBONATE 500 MG CHEWABLE TAB PO SCH (18:40)
[2016-11-06] MEDS: SODIUM BICARBONATE 650 MG TAB PO SCH (22:29)
[2016-11-06] MEDS: PANTOPRAZOLE SODIUM 40 MG TAB PO SCH (22:29)
[2016-11-06] MEDS: HEPARIN 5,000 UNIT/0.5 ML SYR SC SCH (22:29)
[2016-11-07] MEDS: HEPARIN 5,000 UNIT/0.5 ML SYR SC SCH ×3 (05:45→21:21)
[2016-11-07 06:08] LABS: % IMMATURE GRANULYOCYTES 0.2 % (0.0-1.1); ABSOLUTE IMMATURE GRANULOCYTES 0.01 10^3/uL (0.00-0.10); ADD DIFF? NO; ADD MORPH? NO; ADD SCAN? NO; ATYPICAL LYMPHOCYTE FLAG 0 (0-99); FRAGMENT RBC FLAG 0 (0-99); HEMATOCRIT 24.4 % (40.0-51.0); LEFT SHIFT FLG 0 (0-99); LIPEMIA HEMOLYSIS FLAG 80 (0-99); MEAN CELL HEMOGLOBIN CONCENTR. 32.8 g/dL (32.4-36.7); MEAN CELL VOLUME 97.6 fL (81.5-99.8); MEAN PLATELET VOLUME 10.9 fL (8.7-11.7); PLATELET CLUMPS FLAG 0 (0-99); PLATELET COUNT 118 10^3/uL (150-400); RED CELL DISTRIBUTION WIDTH 15.4 % (11.5-15.2)
[2016-11-07 06:40] LABS: ANION GAP 17 mEq/L (8-16); CALCIUM 6.2 mg/dL (8.5-10.4); CARBON DIOXIDE 22 mEq/l (22-31); CHLORIDE 102 mEq/L (97-110); GLUCOSE 89 mg/dL (70-100); SODIUM 141 mEq/L (134-144)
[2016-11-07 06:51] LABS: GLOMERULAR FILTRATION RATE 3
[2016-11-07 06:57] LABS: CREATININE 14.9 mg/dL (0.7-1.3); POTASSIUM 7.1 mEq/L (3.5-5.2)
[2016-11-07] MEDS ORDERED: Herbals/Supplements -Info Only PO SCH (09:00)
[2016-11-07] MEDS: ATORVASTATIN CALCIUM 40 MG TAB PO SCH (14:17)
[2016-11-07] MEDS: METOPROLOL SUCCINATE XR 100 MG TAB PO SCH (14:18)
[2016-11-07] MEDS: MULTIVITAMINS 1 EACH TAB PO SCH (14:18)
[2016-11-07] MEDS: CALCIUM CARBONATE 500 MG CHEWABLE TAB PO SCH ×3 (14:20→18:26)
--- NOTE | 2016-11-07 14:48 | HOSPPROG ---
Hospitalist Progress Note Assessment/Plan: * end-stage renal disease * gets dialysis in the hospital * will probably getting the dialysis tomorrow * usually is pretty tired after dialysis so will see if we can discharge him afterwards her wait another day * history of coronary artery disease * history of GI bleeding Subjective: Tired after dialysis Objective: Vital Signs Temp Pulse Resp BP Pulse Ox 36.6 C 54 L 18 155/71 H 95 11/07/16 05:41 11/07/16 07:41 11/07/16 07:41 11/07/16 07:41 11/07/16 07:41 Laboratory Results 11/07/16 05:31 11/07/16 05:31 - Physical Exam Constitutional: no apparent distress, appears nourished, not in pain Eyes: anicteric sclera, EOMI Ears, Nose, Mouth, Throat: moist mucous membranes Cardiovascular: regular rate and rhythym Respiratory: no respiratory distress Skin: warm Neurologic: AAOx3 Psychiatric: interacting appropriately, not anxious, not encephalopathic, thought process linear ICD10 Worksheet Patient Problems: Problems Problem Status Onset End stage renal disease Acute Hyperkalemia Acute Kidney failure Acute Abdominal pain Acute Acute renal failure Acute Acute upper GI bleed Acute Anemia Acute Anemia associated with acute blood loss Acute Chronic renal failure Acute Diarrhea Acute Hyperkalemia Acute Hyperkalemia Acute Hyperkalemia Acute Hyperkalemia Acute Hyperkalemia Acute Hypertension Acute Hypocalcemia Acute Kidney failure Acute Kidney failure Acute Metabolic acidosis Acute Renal failure Acute Shingles (herpes zoster) polyneuropathy Acute Uremia Acute
--- NOTE | 2016-11-07 15:29 | WOCRNPDOC ---
WOCRN Advanced Assessment Note - Skin Integrity Problem, Advanced Assess Right Posterior Lower Leg Dressing Type: Open to Air Exudate Amount: None Integumentary Issue Intervention: Lotion/Cream Applied (Remedy Anti-fungal cream ) Joan Wound Tissue: Scaly, Hyperkeratotic Joan Wound Swelling: None Site Odor: None Site Measurement - Head-to-Toe Length X Width X Depth (cm): 9 x 7 x 0 Lymphedema Present: No Skin Integrity Problem Comment: Rough, scaly, but intact, skin patch just above the right ankle, which patient reports "opens up into a wound when my leg swells , when I need dialysis," and that when it is open, it presents with yellow drainage, which he bandages himself at home. He further reports that neither Atractain cream nor silvasorb gel have been effective, and that it "itches, but I try not to scratch it, because if I do it opens up again." Based on information, leg was bathed with bath wipes, and antifungal cream was applied, and information about the [facility] was provided, along with encouragement to consult with his provider or the [facility] if/when open wound(s) recurred. Reported to staff design engineer Paavo.
[2016-11-07] MEDS: SODIUM BICARBONATE 650 MG TAB PO SCH ×2 (15:33→21:22)
[2016-11-07] MEDS: PANTOPRAZOLE SODIUM 40 MG TAB PO SCH ×2 (15:33→21:21)
[2016-11-07] MEDS: hydrALAZINE 25 MG TAB PO SCH ×2 (15:33→16:14)
[2016-11-07] MEDS: NEPHROVITE FOLIC ACID/VIT B&C 1 TAB PO SCH (16:13)
--- NOTE | 2016-11-07 17:06 | SOAPPROG ---
SOAP Progress Note Assessment/Plan: Assessment: 1. Hyperkalemia, critical. HD done earlier this am. Repeat again tomorrow. 2. R calf lesion. Possible fungal infection. Started on miconazole today. Does not look typical for calciphylaxis and location atypical but would keep this on the differential if sore ulcerates. Recent PTH 305, P 5.4, Ca 6.7. Not on calcitriol. 3. Anemia. Hgb improving. S/p procrit last visit. Fe stores fine. Repeat procrit. 4. Nutrition. Albumin 4.2 - excellent. 5. HTN. BP slightly high. Hydralazine increased last visit to 50mg TID. May need further increase. Plan: 11/07/16 17:04 11/07/16 17:07 11/07/16 17:07 11/07/16 17:08 11/07/16 17:08 Subjective: 66 YO with ESRD and no outpatient dialysis benefits. Has required emergent dialysis about every 5-7 days. Returns today with K of 7.1. Had short dialysis this am. Feels strong but c/o sore on R calf. Good appetite. Objective: Vital Signs Temp Pulse Resp BP Pulse Ox 36.6 C 61 16 155/72 H 95 11/07/16 15:50 11/07/16 15:50 11/07/16 15:50 11/07/16 15:50 11/07/16 15:50 Laboratory Results 11/07/16 05:31 11/07/16 05:31 In bed RRR, no m/g/r CTAB Abdom soft, nt No edema R post calf with 12-15 cm rough, scaly plaque that is tender to touch with fissuring in places ICD10 Worksheet Patient Problems: Problems Problem Status Onset Acute renal failure Acute Anemia Acute Abdominal pain Acute Hyperkalemia Acute Hypocalcemia Acute Renal failure Acute Hypertension Acute Acute upper GI bleed Acute Anemia associated with acute blood loss Acute End stage renal disease Acute Metabolic acidosis Acute Diarrhea Acute Shingles (herpes zoster) polyneuropathy Acute Kidney failure Acute Hyperkalemia Acute Chronic renal failure Acute Hyperkalemia Acute Kidney failure Acute Hyperkalemia Acute Kidney failure Acute Uremia Acute Hyperkalemia Acute Hyperkalemia Acute
[2016-11-07] MEDS ORDERED: EPOETIN ALFA 10,000 UNIT/ML VIAL SC SCH (17:30)
[2016-11-08] MEDS: HEPARIN 5,000 UNIT/0.5 ML SYR SC SCH ×2 (05:00→15:44)
[2016-11-08 05:10] LABS: % IMMATURE GRANULYOCYTES 0.2 % (0.0-1.1); ABSOLUTE IMMATURE GRANULOCYTES 0.01 10^3/uL (0.00-0.10); ADD DIFF? NO; ADD MORPH? NO; ADD SCAN? NO; ATYPICAL LYMPHOCYTE FLAG 0 (0-99); FRAGMENT RBC FLAG 0 (0-99); HEMATOCRIT 22.6 % (40.0-51.0); HEMOGLOBIN 7.4 g/dL (13.7-17.5); LEFT SHIFT FLG 0 (0-99); LIPEMIA HEMOLYSIS FLAG 80 (0-99); MEAN CELL HEMOGLOBIN 31.4 pg (27.9-34.1); MEAN CELL HEMOGLOBIN CONCENTR. 32.7 g/dL (32.4-36.7); MEAN CELL VOLUME 95.8 fL (81.5-99.8); MEAN PLATELET VOLUME 10.2 fL (8.7-11.7); PLATELET CLUMPS FLAG 0 (0-99); PLATELET COUNT 106 10^3/uL (150-400); RED BLOOD CELL COUNT 2.36 10^6/uL (4.40-6.38); RED CELL DISTRIBUTION WIDTH 15.3 % (11.5-15.2)
[2016-11-08 05:29] LABS: ANION GAP 13 mEq/L (8-16); CARBON DIOXIDE 26 mEq/l (22-31); CHLORIDE 100 mEq/L (97-110); GLOMERULAR FILTRATION RATE 6; GLUCOSE 88 mg/dL (70-100); POTASSIUM 5.5 mEq/L (3.5-5.2); SODIUM 139 mEq/L (134-144)
[2016-11-08 05:45] LABS: CREATININE 8.7 mg/dL (0.7-1.3)
[2016-11-08 08:07] VITALS: RESP 18; TEMP 98.8; O2SAT 96
--- NOTE | 2016-11-08 10:10 | SOAPPROG ---
JACQUELINE Progress Note Assessment/Plan: Assessment:Plan: ESRD-in for emergency dialysis -ongoing hyperkalemia -Hd today -patient states he will be discharged today -he has been requiring emergency dialysis on a weekly basis Access-stable Hyperkalemia-as above -low K diet Anemia-he is on EPO Disposition-he is a high-risk patient as he comes in profoundly uremia and hyperkalemic -this increases risk for complications, including hyperkalemic cardiac arrest , dialysis dysequilibrium and ; among other things -this represent recurrent emergency treatment and does not approximate what occurs with regular, outpatient dialysis therapy 11/08/16 10:08 Subjective: stable on dialysis Objective: Vital Signs Temp Pulse Resp BP Pulse Ox 37.1 C 58 L 18 172/76 H 96 11/08/16 08:00 11/08/16 08:00 11/08/16 08:00 11/08/16 08:00 11/08/16 08:00 Laboratory Results 11/08/16 05:00 11/08/16 05:00 11/07/16 11/08/16 11/09/16 05:59 05:59 05:59 Intake Total 550 Balance 550 Physical Exam - Physical Exam General Appearance: alert, cachetic, thin EENT: normal ENT inspection Neck: normal inspection Respiratory: lungs clear, normal breath sounds, No respiratory distress Cardiac/Chest: regular rate, rhythm, systolic murmur Abdomen: normal bowel sounds Extremities: No swelling ICD10 Worksheet Patient Problems: Problems Problem Status Onset End stage renal disease Acute Hyperkalemia Acute Kidney failure Acute Abdominal pain Acute Acute renal failure Acute Acute upper GI bleed Acute Anemia Acute Anemia associated with acute blood loss Acute Chronic renal failure Acute Diarrhea Acute Hyperkalemia Acute Hyperkalemia Acute Hyperkalemia Acute Hyperkalemia Acute Hyperkalemia Acute Hypertension Acute Hypocalcemia Acute Kidney failure Acute Kidney failure Acute Metabolic acidosis Acute Renal failure Acute Shingles (herpes zoster) polyneuropathy Acute Uremia Acute
[2016-11-08] MEDS: CALCIUM CARBONATE 500 MG CHEWABLE TAB PO SCH ×3 (12:20→12:34)
[2016-11-08 12:21] VITALS: BP 168/71
[2016-11-08] MEDS: MULTIVITAMINS 1 EACH TAB PO SCH (12:21)
[2016-11-08] MEDS: ATORVASTATIN CALCIUM 40 MG TAB PO SCH (12:21)
[2016-11-08] MEDS: SODIUM BICARBONATE 650 MG TAB PO SCH (12:22)
[2016-11-08] MEDS: PANTOPRAZOLE SODIUM 40 MG TAB PO SCH (12:22)
[2016-11-08] MEDS: METOPROLOL SUCCINATE XR 100 MG TAB PO SCH (12:23)
[2016-11-08 12:24] VITALS: PULSE 54
[2016-11-08] MEDS: hydrALAZINE 25 MG TAB PO SCH (12:25)
[2016-11-08] MEDS: NEPHROVITE FOLIC ACID/VIT B&C 1 TAB PO SCH (12:30)
[2016-11-08] MEDS ORDERED: HEPARIN 50,000 UNIT/10 ML VIAL ONE (14:35)
--- NOTE | 2016-11-08 16:16 | GDS ---
[f rep st] DISCHARGE SUMMARY DISCHARGE DIAGNOSES: 1. End-stage renal disease. 2. Hyperkalemia. 3. Metabolic acidosis. 4. Uremia. 5. Coronary artery disease. 6. Previous history of gastrointestinal bleeding. 7. Gastroesophageal reflux disease. 8. Anemia. 9. Esophagitis. 10. Hypertension. HISTORY: This is a 66-year-old male who is well known to us, who has end-stage renal disease but do es not have any dialysis benefits. He comes in almost weekly now for dialysis. He came in with hyp erkalemia, acidosis, and uremia. He was dialyzed twice and is now going to be discharged home. /[id number]/MODL
== END 2016-11-08 17:00 | disposition home or self-care (01) | DRG 682 ==
LOC: OBSVTOIN 14:20 → F1N 15:17
PROVIDERS: ADMIT Internal Medicine; ATTEND Internal Medicine
PROC: 5A1D60Z (ICD-10-PCS; principal; 2016-11-07)
DX: I12.0 Hypertensive chronic kidney disease with stage 5 chronic kidney disease or end stage renal disease (principal); N18.6 End stage renal disease; E87.2 Acidosis; E87.5 Hyperkalemia; I25.10 Atherosclerotic heart disease of native coronary artery without angina pectoris; K21.9 Gastro-esophageal reflux disease without esophagitis; D63.1 Anemia in chronic kidney disease; Z87.891 Personal history of nicotine dependence; Z99.2 Dependence on renal dialysis
CPT/HCPCS: 96374; J0610; J0885; J1644; J1815

== ENCOUNTER 2016-11-12 11:03 | Observation (INO) | payer OTHER ==
--- NOTE | 2016-11-12 11:18 | EDPHY ---
H & P Stated Complaint: Here for dialysis Time Seen by Provider: 11/12/16 11:17 HPI/ROS: CHIEF COMPLAINT: Needing dialysis HISTORY OF PRESENT ILLNESS: This is a 66-year-old male presenting to the emergency department in need of dialysis. Patient's last dialysis was 11/06/2016 without complications. Patient reports diarrhea which is a normal symptom for him with hyperkalemia and lactulose. Patient denies any new complaints no chest pain or shortness of breath or nausea or vomiting REVIEW OF SYSTEMS: Constitutional: No fever, no chills. Eyes: No discharge. ENT: No sore throat. Cardiovascular: No chest pain, no palpitations. Respiratory: No cough, no shortness of breath. Gastrointestinal: No abdominal pain, no vomiting. diarrhea Genitourinary: Patient states very small amount urine output, no dysuria Musculoskeletal: No back pain. Skin: No rashes. Neurological: No headache. 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 - Personal History Current Tetanus Diphtheria and Acellular Pertussis (TDAP): Yes Tetanus Vaccine Date: 2010 - Medical/Surgical History Hx Asthma: No Hx Chronic Respiratory Disease: No Hx Diabetes: No Hx Cardiac Disease: Yes Hx Renal Disease: Yes Hx Cirrhosis: No Hx Alcoholism: No Hx HIV/AIDS: No Hx Splenectomy or Spleen Trauma: No Other PMH: gout, htn, hernia, anemia, cad, esophagitis, gastric ulcer, renal failure, dialysis, heart stent, shingles - Social History Smoking Status: Former smoker - Physical Exam Exam: General Appearance: Alert, no distress. Eyes: Pupils equal and round no pallor or injection. ENT, Mouth: Mucous membranes moist. Respiratory: There are no retractions, lungs are clear to auscultation. Cardiovascular: Regular rate and rhythm. Gastrointestinal: Abdomen is soft and nontender, no masses, bowel sounds normal. Neurological: No focal deficits Skin: Warm and dry, no rashes. Musculoskeletal: Neck is supple nontender. Extremities: Bilateral extremity edema nonpitting. symmetrical, full range of motion. Psychiatric: Patient is oriented X 3, there is no agitation. Constitutional: Initial Vital Signs Temperature (C) 36.6 C 11/12/16 11:13 Heart Rate 61 11/12/16 11:13 Respiratory Rate 18 11/12/16 11:13 Blood Pressure 161/73 H 11/12/16 11:13 O2 Sat (%) 99 11/12/16 11:13 O2 Delivery Mode Room Air Allergies/Adverse Reactions: No Known Allergies Allergy (Verified 11/12/16 11:12) Home Medications: Medication Instructions Recorded Atorvastatin Calcium [Lipitor 40 80 mg PO DAILY 10/30/16 mg (*)] Hydralazine HCl 25 mg PO DAILY@1200 10/30/16 Metoprolol Succinate Xr [Toprol Xl 100 mg PO DAILY 10/30/16 100 mg (*)] Multivitamins [Multivitamin (*)] 1 each PO DAILY 10/30/16 Nitroglycerin [Nitrostat 0.4 mg 0.4 mg SL AD PRN 10/30/16 (*)] Sodium Bicarbonate [Na Bicarb] 1,300 mg PO BID 10/30/16 Vit B Cmplx 3/Folic AC/C/Biot 1 each PO DAILY 10/30/16 [Ev-Peyton Rx Tablet] amLODIPine BESYLATE [Norvasc 10 mg 10 mg PO DAILY 10/30/16 (*)] Calcium Carbonate [Tums 500MG (*)] 500 mg PO TIDMEAL #90 tab.chew 11/01/16 Hydralazine HCl 50 mg PO TID #90 tablet 11/01/16 Pantoprazole Sodium [Protonix 40mg 40 mg PO BID #60 tab 11/01/16 (*)] Medical Decision Making ED Course/Re-evaluation: Discussed the plan of care: CBC, CMP. Reviewed old medical records previous visits 1200: Potassium 6.5 BUN 107. 12- lead EKG sinus rhythm. 1210: patient being admitted under Dr. Haji for dialysis. Discussed plan with patient in agreement. Stable not in any distress Differential Diagnosis: Other differential diagnosis considered but not limited to hypernatremia, infectious diarrhea, gastroenteritis and AMS - Data Points Laboratory Results: Laboratory Results 11/12/16 11:20 11/12/16 11:20 11/12/16 11/12/16 11:20 11:20 WBC 5.87 10^3/uL 10^3/uL (3.80-9.50) RBC 2.48 10^6/uL L 10^6/uL (4.40-6.38) Hgb 7.8 g/dL L g/dL (13.7-17.5) Hct 24.7 % L % (40.0-51.0) MCV 99.6 fL fL (81.5-99.8) MCH 31.5 pg pg (27.9-34.1) MCHC 31.6 g/dL L g/dL (32.4-36.7) RDW 15.7 % H % (11.5-15.2) Plt Count 127 10^3/uL L 10^3/uL (150-400) MPV 10.4 fL fL (8.7-11.7) Neut % (Auto) 60.6 % % (39.3-74.2) Lymph % (Auto) 16.0 % % (15.0-45.0) [place] % (Auto) 8.9 % % (4.5-13.0) Eos % (Auto) 13.1 % H % (0.6-7.6) Baso % (Auto) 0.9 % % (0.3-1.7) Nucleat RBC Rel Count 0.0 % % (0.0-0.2) Absolute Neuts (auto) 3.56 10^3/uL 10^3/uL (1.70-6.50) Absolute Lymphs (auto) 0.94 10^3/uL L 10^3/uL (1.00-3.00) Absolute Monos (auto) 0.52 10^3/uL 10^3/uL (0.30-0.80) Absolute Eos (auto) 0.77 10^3/uL H 10^3/uL (0.03-0.40) Absolute Basos (auto) 0.05 10^3/uL 10^3/uL (0.02-0.10) Absolute Nucleated RBC 0.00 10^3/uL 10^3/uL (0-0.01) Immature Gran % 0.5 % % (0.0-1.1) Immature Gran # 0.03 10^3/uL 10^3/uL (0.00-0.10) Sodium 146 mEq/L H mEq/L (134-144) Potassium 6.5 mEq/L H* mEq/L (3.5-5.2) Chloride 102 mEq/L mEq/L (97-110) Carbon Dioxide 23 mEq/l mEq/l (22-31) Anion Gap 21 mEq/L H mEq/L (8-16) BUN 107 mg/dL H* mg/dL (7-23) Creatinine 11.9 mg/dL H* mg/dL (0.7-1.3) Estimated GFR 4 Glucose 111 mg/dL H mg/dL (70-100) Calcium 7.9 mg/dL L mg/dL (8.5-10.4) Total Bilirubin 0.7 mg/dL mg/dL (0.1-1.4) AST 28 IU/L IU/L (17-59) ALT 39 IU/L IU/L (21-72) Alkaline Phosphatase 147 IU/L H IU/L (38-126) Total Protein 6.7 g/dL g/dL (6.3-8.2) Albumin 4.7 g/dL g/dL (3.5-5.0) Departure - Departure Disposition: [facility] Acute Clinical Impression: Hyperkalemia, End stage renal disease Condition: Good
[2016-11-12 11:40] LABS: % IMMATURE GRANULYOCYTES 0.5 % (0.0-1.1); ABSOLUTE IMMATURE GRANULOCYTES 0.03 10^3/uL (0.00-0.10); ADD DIFF? NO; ADD MORPH? NO; ADD SCAN? NO; ATYPICAL LYMPHOCYTE FLAG 0 (0-99); FRAGMENT RBC FLAG 0 (0-99); HEMATOCRIT 24.7 % (40.0-51.0); HEMOGLOBIN 7.8 g/dL (13.7-17.5); LEFT SHIFT FLG 0 (0-99); LIPEMIA HEMOLYSIS FLAG 80 (0-99); MEAN CELL HEMOGLOBIN 31.5 pg (27.9-34.1); MEAN CELL HEMOGLOBIN CONCENTR. 31.6 g/dL (32.4-36.7); MEAN CELL VOLUME 99.6 fL (81.5-99.8); MEAN PLATELET VOLUME 10.4 fL (8.7-11.7); PLATELET CLUMPS FLAG 0 (0-99); PLATELET COUNT 127 10^3/uL (150-400); RED BLOOD CELL COUNT 2.48 10^6/uL (4.40-6.38); RED CELL DISTRIBUTION WIDTH 15.7 % (11.5-15.2)
[2016-11-12 11:57] LABS: ALANINE AMINOTRANSFERASE 39 IU/L (21-72); ALBUMIN 4.7 g/dL (3.5-5.0); ALKALINE PHOSPHATASE 147 IU/L (38-126); ANION GAP 21 mEq/L (8-16); ASPARTATE AMINOTRANSFERASE 28 IU/L (17-59); BILIRUBIN,TOTAL 0.7 mg/dL (0.1-1.4); CALCIUM 7.9 mg/dL (8.5-10.4); CARBON DIOXIDE 23 mEq/l (22-31); CHLORIDE 102 mEq/L (97-110); GLOMERULAR FILTRATION RATE 4; GLUCOSE 111 mg/dL (70-100); SODIUM 146 mEq/L (134-144); TOTAL PROTEIN 6.7 g/dL (6.3-8.2)
[2016-11-12 11:58] LABS: POTASSIUM 6.5 mEq/L (3.5-5.2)
[2016-11-12 11:59] LABS: CREATININE 11.9 mg/dL (0.7-1.3)
--- NOTE | 2016-11-12 12:00 | CPEKG ---
Heart Rate: 59 RR Interval: 1017 P-R Interval: 180 QRSD Interval: 92 QT Interval: 472 QTC Interval: 468 P [place]: 66 QRS [place]: 67 T Wave [place]: 65 EKG Severity - NORMAL ECG - EKG Impression: SINUS RHYTHM Electronically Signed By: Geremias Enamorado 12-Nov-2016 14:34:52
[2016-11-12] MEDS ORDERED: NITROGLYCERIN 0.4 MG BTL SL PRN (13:45)
[2016-11-12] MEDS ORDERED: SODIUM POLY SULF 15 GM/60 ML BOTTLE PO ONE (15:09)
--- NOTE | 2016-11-12 15:20 | PDGENHP ---
History and Physical History and Physical: HISTORY AND PHYSICAL CC:Loose stools, needing dialysis HISTORY: This patient is a 66-year-old man with end-stage renal disease on chronic dialysis. However he is unable to receive dialysis at the dialysis unit in the outpatient setting due to no workable insurance coverage. The patient comes in generally once a week here and we dialyzed him here in the hospital is the only place he can have his dialysis. He was last treated here on November 06. He comes in at this time with a complaint of some loose stools which she gets probably from gut edema no abdominal pain fevers or bleeding any eating well with no nausea. There are no other symptoms beyond his usual expected leg swelling. No shortness of breath or chest pain no palpitations. He has no trouble with his dialysis catheter. There are no fever symptoms. ROS: A comprehensive 10 system review revealed no other significant findings PAST MEDICAL HISTORY: End-stage renal disease on dialysis Coronary artery disease GI bleed which occurred while taking Plavix Esophageal reflux Anemia of chronic disease related kidneys Esophagitis Hypertension Tunneled right dialysis catheter in the jugular vein FAMILY MEDICAL HISTORY: coronary heart disease Stroke Hypertension SOCIAL HISTORY: patient originally from [place] has been living and working here for many years. Does not use tobacco or significant alcohol or street drugs MEDICATIONS: The patients list has been reconciled by our clinical pharmacist in the EMR. I have reviewed the list and ordered appropriate medicines. PHYSICAL EXAMINATION: Vital Signs: mild systolic hypertension otherwise stable without fever Air Pollution Analyst: sinus rhythm Examination: General: alert, oriented, good mentation, relaxed Skin: warm, dry, good color, no rash His IJ catheter is in normal position no signs of infection HEENT: normal Neck: no mass or jvd Resps: relaxed Lungs: clear breath sounds Heart: regular, no murmur Abdomen: soft, nondistended, nontender, +BS, no mass Upper Extremities: normal Lower Extremities: there is bilateral pitting edema from the feet to the knees without evidence of cellulitis or other infectious process, warm No Bleeding or bruising Neurologic: normal speech/language, 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 Wolfe of the nephrology service and she will get the dialysis team ready to provide his dialysis I have reviewed the patient's case in detail with Dr. Wolfe I have reviewed the patient's past medical records as part of this assessment, including previous hospital admission records
[2016-11-12] MEDS: CALCIUM CARBONATE 500 MG CHEWABLE TAB PO SCH (18:02)
--- NOTE | 2016-11-12 18:30 | PDGENHP ---
History and Physical - Chief Complaint ESRD - History of Present Illness Mr. Walton is a 66 yo M with ESRD and no benefits to get outpatient HD who presents to ER today for HD. He states that he was getting more swelling in his legs and was starting to get diarrhea, so figured he was due for dialysis. He denies any dyspnea or chest pain. He is eating ok, otherwise feeling ok. He has no other complaints today. History Information - Allergies/Home Medication List Allergies/Adverse Reactions: No Known Allergies Allergy (Verified 11/12/16 11:12) Home Medications: Atorvastatin Calcium [Lipitor 40 mg (*)] 80 mg PO DAILY 10/30/16 [Last Taken 02/21] Hydralazine HCl 25 mg PO DAILY@1200 10/30/16 [Last Taken 11/12/16] Metoprolol Succinate Xr [Toprol Xl 100 mg (*)] 100 mg PO DAILY 10/30/16 [Last Taken 11/12/16] Multivitamins [Multivitamin (*)] 1 each PO DAILY 10/30/16 [Last Taken 11/12/16] Nitroglycerin [Nitrostat 0.4 mg (*)] 0.4 mg SL AD PRN 10/30/16 [Last Taken Unknown] Sodium Bicarbonate [Na Bicarb] 1,300 mg PO BID 10/30/16 [Last Taken 11/12/16] Vit B Cmplx 3/Folic AC/C/Biot [Ev-Peyton Rx Tablet] 1 each PO DAILY 10/30/16 [ Last Taken 11/12/16] amLODIPine BESYLATE [Norvasc 10 mg (*)] 10 mg PO DAILY 10/30/16 [Last Taken 02/21] I have personally reviewed and updated: medical history - Past Medical History coronary artery disease (Known coronary disease but has not undergone interventional cardiac catheterization), GI bleed, GERD (Anemia of chronic disease, H/O UGIB x2 (first on Plavix +ASA, then on ASA alone), esophagitis), hypertension Additional medical history: Anemia of chronic kidney disease; upper GI bleed in the setting of anti-platelet medications, has occurred while on single and double agent therapy; 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; esophagitis - Surgical History Additional surgical history: R IJ tunneled catheter - Family History Additional family history: Mother with CVA and HTN - Social History Smoking Status: Former smoker Additional social history: Continues to work on non-HD days Review of Systems ROS: 10pt was reviewed & negative except for what was stated in HPI & below Physical Exam Temp Pulse Resp BP Pulse Ox 36.6 C 54 L 19 155/75 H 98 11/12/16 13:23 11/12/16 13:23 11/12/16 13:23 11/12/16 16:43 11/12/16 13:23 Constitutional: no apparent distress, appears nourished, not in pain Eyes: PERRL, anicteric sclera, EOMI Ears, Nose, Mouth, Throat: moist mucous membranes, hearing normal Cardiovascular: regular rate and rhythym, pulses symmetric bilaterally, edema (+ 2 edema BLE) Peripheral Pulses: 2+: dorsalis-pedis (R), dorsalis-pedis (L) Respiratory: no respiratory distress, no rales or rhonchi, clear to auscultation Gastrointestinal: normoactive bowel sounds, soft, non-tender abdomen Skin: warm, No rash Musculoskeletal: no muscle tenderness, normal joint ROM Neurologic: AAOx3, CN II-XII Intact, No asterixes Psychiatric: interacting appropriately, not anxious, not encephalopathic, thought process linear Lab Data & Imaging Review 11/12/16 11:20 11/12/16 11:20 WBC 5.87 10^3/uL (3.80-9.50) 11/12/16 11:20 RBC 2.48 10^6/uL (4.40-6.38) L 11/12/16 11:20 Hgb 7.8 g/dL (13.7-17.5) L 11/12/16 11:20 Hct 24.7 % (40.0-51.0) L 11/12/16 11:20 MCV 99.6 fL (81.5-99.8) 11/12/16 11:20 MCH 31.5 pg (27.9-34.1) 11/12/16 11:20 MCHC 31.6 g/dL (32.4-36.7) L 11/12/16 11:20 RDW 15.7 % (11.5-15.2) H 11/12/16 11:20 Plt Count 127 10^3/uL (150-400) L 11/12/16 11:20 MPV 10.4 fL (8.7-11.7) 11/12/16 11:20 Neut % (Auto) 60.6 % (39.3-74.2) 11/12/16 11:20 Lymph % (Auto) 16.0 % (15.0-45.0) 11/12/16 11:20 [place] % (Auto) 8.9 % (4.5-13.0) 11/12/16 11:20 Eos % (Auto) 13.1 % (0.6-7.6) H 11/12/16 11:20 Baso % (Auto) 0.9 % (0.3-1.7) 11/12/16 11:20 Nucleat RBC Rel Count 0.0 % (0.0-0.2) 11/12/16 11:20 Absolute Neuts (auto) 3.56 10^3/uL (1.70-6.50) 11/12/16 11:20 Absolute Lymphs (auto) 0.94 10^3/uL (1.00-3.00) L 11/12/16 11:20 Absolute Monos (auto) 0.52 10^3/uL (0.30-0.80) 11/12/16 11:20 Absolute Eos (auto) 0.77 10^3/uL (0.03-0.40) H 11/12/16 11:20 Absolute Basos (auto) 0.05 10^3/uL (0.02-0.10) 11/12/16 11:20 Absolute Nucleated RBC 0.00 10^3/uL (0-0.01) 11/12/16 11:20 Immature Gran % 0.5 % (0.0-1.1) 11/12/16 11:20 Immature Gran # 0.03 10^3/uL (0.00-0.10) 11/12/16 11:20 Sodium 146 mEq/L (134-144) H 11/12/16 11:20 Potassium 6.5 mEq/L (3.5-5.2) H* 11/12/16 11:20 Chloride 102 mEq/L (97-110) 11/12/16 11:20 Carbon Dioxide 23 mEq/l (22-31) 11/12/16 11:20 Anion Gap 21 mEq/L (8-16) H 11/12/16 11:20 BUN 107 mg/dL (7-23) H* 11/12/16 11:20 Creatinine 11.9 mg/dL (0.7-1.3) H* 11/12/16 11:20 Estimated GFR 4 11/12/16 11:20 Glucose 111 mg/dL (70-100) H 11/12/16 11:20 Calcium 7.9 mg/dL (8.5-10.4) L 11/12/16 11:20 Total Bilirubin 0.7 mg/dL (0.1-1.4) 11/12/16 11:20 AST 28 IU/L (17-59) 11/12/16 11:20 ALT 39 IU/L (21-72) 11/12/16 11:20 Alkaline Phosphatase 147 IU/L (38-126) H 11/12/16 11:20 Total Protein 6.7 g/dL (6.3-8.2) 11/12/16 11:20 Albumin 4.7 g/dL (3.5-5.0) 11/12/16 11:20 Assessment & Plan Assessment: Assessment/Plan: ESRD: pt without outpatient dialysis unit as he lacks benefits. - Will do HD tonight and again tomorrow. - Pt to continue to come to ER for emergent HD needs (hypervolemia, dyspnea, hyperkalemia). Anemia: will give epo while on HD. Hyperkalemia: will modulate with HD. Hypervolemia: will modulate with HD. HTN: continue home meds, will also help with fluid removal on HD. Thank you for the interesting consult. Nephrology will continue to follow, please call with any questions or concerns.
[2016-11-12] MEDS: PANTOPRAZOLE SODIUM 40 MG TAB PO SCH (23:54)
[2016-11-12] MEDS: SODIUM BICARBONATE 650 MG TAB PO SCH (23:54)
[2016-11-13] MEDS ORDERED: HEPARIN 10,000 UNIT/10 ML MDV ONE (00:12)
[2016-11-13] MEDS: SODIUM BICARBONATE 650 MG TAB PO SCH (08:26)
[2016-11-13] MEDS: PANTOPRAZOLE SODIUM 40 MG TAB PO SCH (08:26)
[2016-11-13] MEDS: CALCIUM CARBONATE 500 MG CHEWABLE TAB PO SCH ×3 (08:27→15:15)
[2016-11-13] MEDS ORDERED: MULTIVITAMINS 1 EACH TAB PO SCH (09:00)
[2016-11-13] MEDS ORDERED: FOLIC ACID PO SCH (09:00)
[2016-11-13] MEDS ORDERED: VITAMIN B COMPLEX 1 EA CAP/TAB PO SCH (09:00)
[2016-11-13] MEDS ORDERED: METOPROLOL SUCCINATE XR 100 MG TAB PO SCH (09:00)
[2016-11-13] MEDS ORDERED: VITAMIN B COMPLEX PO SCH (09:00)
[2016-11-13] MEDS ORDERED: BIOTIN PO SCH (09:00)
[2016-11-13] MEDS ORDERED: ASCORBIC ACID PO SCH (09:00)
[2016-11-13] MEDS ORDERED: ATORVASTATIN CALCIUM 40 MG TAB PO SCH (09:00)
--- NOTE | 2016-11-13 11:34 | SOAPPROG ---
JACQUELINE Progress Note Assessment/Plan: Assessment: Juan Manuel looks quite good. 1. ESRD without benefits HD last pm. K still high. HD again today and then DC. Plan: 11/13/16 11:11 Subjective: Doing ok Objective: Vital Signs Temp Pulse Resp BP Pulse Ox 36.7 C 60 16 148/80 H 97 11/13/16 08:03 11/13/16 10:37 11/13/16 08:03 11/13/16 10:37 11/13/16 08:03 11/12/16 11/13/16 11/14/16 05:59 05:59 05:59 Intake Total 200 Balance 200 Physical Exam - Physical Exam General Appearance: no apparent distress Neck: other (cath site ok) Respiratory: lungs clear Cardiac/Chest: regular rate, rhythm, systolic murmur Extremities: pedal edema Neuro/Psych: oriented x 3 ICD10 Worksheet Patient Problems: Problems Problem Status Onset End stage renal disease Acute Hyperkalemia Acute Abdominal pain Acute Acute renal failure Acute Acute upper GI bleed Acute Anemia Acute Anemia associated with acute blood loss Acute Chronic renal failure Acute Diarrhea Acute Hyperkalemia Acute Hyperkalemia Acute Hyperkalemia Acute Hyperkalemia Acute Hyperkalemia Acute Hyperkalemia Acute Hypertension Acute Hypocalcemia Acute Kidney failure Acute Kidney failure Acute Kidney failure Acute Metabolic acidosis Acute Renal failure Acute Shingles (herpes zoster) polyneuropathy Acute Uremia Acute
[2016-11-13 11:47] VITALS: PULSE 56
[2016-11-13] MEDS ORDERED: hydrALAZINE 25 MG TAB PO SCH (12:00)
[2016-11-13 17:23] LABS: ANION GAP 12 mEq/L (8-16); CALCIUM 8.6 mg/dL (8.5-10.4); CARBON DIOXIDE 28 mEq/l (22-31); CHLORIDE 97 mEq/L (97-110); CREATININE 3.5 mg/dL (0.7-1.3); GLOMERULAR FILTRATION RATE 18; GLUCOSE 144 mg/dL (70-100); POTASSIUM 3.7 mEq/L (3.5-5.2); SODIUM 137 mEq/L (134-144)
--- NOTE | 2016-11-13 17:37 | PDDCSUM ---
Discharge Summary Discharge Summary: DISCHARGE DIAGNOSES: -END-STAGE RENAL DISEASE CHRONIC DIALYSIS -HYPERKALEMIA -DIARRHEA LIKELY RELATED TO VOLUME OVERLOAD FROM DIALYSIS INTERVAL CONSULTANTS: Dr. Rivera of nephrology PROCEDURES: Hemodialysis x2 HOSPITAL COURSE SUMMARY: This patient comes to the hospital for his dialysis as he is unable to get anywhere. He presented this time with some diarrhea and hyperkalemia but was in no respiratory or cardiac distress and did not have EKG abnormalities. Was treated with some Kayexalate had 2 sessions of hemodialysis with removal of fluid and correction of electrolytes. His potassium is now 3.7 his symptoms improved and his body weight fairly close to drive for him. At this point is stable for discharge. PENDING TEST RESULTS: None MEDICATION CHANGES: None FOLLOW-UP PLAN: He will return next week for hemodialysis as instructed for his usual schedule here and report any concerning symptoms in the meantime through the nephrology office
[2016-11-13 17:55] VITALS: BP 175/76; RESP 16; TEMP 98.3; O2SAT 98
[2016-11-13] MEDS ORDERED: HEPARIN 50,000 UNIT/10 ML VIAL ONE (18:46)
== END 2016-11-13 20:23 | disposition home or self-care (01) ==
LOC: INTOOBSV 12:08 → F2W 13:20
PROVIDERS: ADMIT Internal Medicine; ATTEND Internal Medicine
PROC: 5A1D60Z (ICD-10-PCS; principal; 2016-11-12)
DX: I12.0 Hypertensive chronic kidney disease with stage 5 chronic kidney disease or end stage renal disease (principal); N18.6 End stage renal disease; Z99.2 Dependence on renal dialysis; E87.5 Hyperkalemia; I25.10 Atherosclerotic heart disease of native coronary artery without angina pectoris; Z95.5 Presence of coronary angioplasty implant and graft; Z87.891 Personal history of nicotine dependence; Z87.19 Personal history of other diseases of the digestive system; D64.9 Anemia, unspecified; M10.9 Gout, unspecified
CPT/HCPCS: G0378; J1644

== ENCOUNTER 2016-11-19 09:25 | Inpatient (IN) | payer OTHER ==
[2016-11-19 10:56] LABS: % IMMATURE GRANULYOCYTES 0.4 % (0.0-1.1); ABSOLUTE IMMATURE GRANULOCYTES 0.02 10^3/uL (0.00-0.10); ADD DIFF? NO; ADD MORPH? NO; ADD SCAN? NO; ATYPICAL LYMPHOCYTE FLAG 10 (0-99); FRAGMENT RBC FLAG 0 (0-99); HEMATOCRIT 27.3 % (40.0-51.0); HEMOGLOBIN 8.9 g/dL (13.7-17.5); LEFT SHIFT FLG 0 (0-99); LIPEMIA HEMOLYSIS FLAG 80 (0-99); MEAN CELL HEMOGLOBIN 31.1 pg (27.9-34.1); MEAN CELL HEMOGLOBIN CONCENTR. 32.6 g/dL (32.4-36.7); MEAN CELL VOLUME 95.5 fL (81.5-99.8); MEAN PLATELET VOLUME 10.4 fL (8.7-11.7); PLATELET CLUMPS FLAG 30 (0-99); PLATELET COUNT 132 10^3/uL (150-400); RED BLOOD CELL COUNT 2.86 10^6/uL (4.40-6.38); RED CELL DISTRIBUTION WIDTH 14.4 % (11.5-15.2)
--- NOTE | 2016-11-19 11:34 | CPEKG ---
Heart Rate: 50 RR Interval: 1200 P-R Interval: 200 QRSD Interval: 102 QT Interval: 484 QTC Interval: 442 P [place]: 67 QRS [place]: 73 T Wave [place]: 69 EKG Severity - NORMAL ECG - EKG Impression: SINUS RHYTHM EKG Impression: bradycardia Electronically Signed By: Judie Jain 19-Nov-2016 15:21:36
[2016-11-19 12:04] LABS: ANION GAP 27 mEq/L (8-16); CALCIUM 8.8 mg/dL (8.5-10.4); CARBON DIOXIDE 15 mEq/l (22-31); CHLORIDE 103 mEq/L (97-110); GLUCOSE 101 mg/dL (70-100); SODIUM 145 mEq/L (134-144)
[2016-11-19 12:30] LABS: GLOMERULAR FILTRATION RATE 3
[2016-11-19 12:33] LABS: CREATININE 16.2 mg/dL (0.7-1.3)
[2016-11-19] MEDS ORDERED: NITROGLYCERIN 0.4 MG BTL SL PRN (15:03)
--- NOTE | 2016-11-19 16:01 | PDGENHP ---
History and Physical - Chief Complaint diarrhea - History of Present Illness 66 y/o male with ESRD without outpatient dialysis benefits presents to the ED with Diarrhea. The diarrhea has been off and on for some time. He correlates his diarrhea with needing dialysis. Denies bloody diarrhea. His last HD treatment was done at [facility] last Saturday. He denies chest pain or shortness of breath. He has not noted any swelling. He denies any fevers or chills. Appetite has been normal. History Information - Allergies/Home Medication List Allergies/Adverse Reactions: No Known Allergies Allergy (Verified 11/12/16 11:12) Home Medications: Atorvastatin Calcium [Lipitor 40 mg (*)] 80 mg PO DAILY 10/30/16 [Last Taken ] Hydralazine HCl 25 mg PO DAILY@1200 10/30/16 [Last Taken 11/19/16] Metoprolol Succinate Xr [Toprol Xl 100 mg (*)] 100 mg PO DAILY 10/30/16 [Last Taken 11/19/16] Multivitamins [Multivitamin (*)] 1 each PO DAILY 10/30/16 [Last Taken 11/19/16] Nitroglycerin [Nitrostat 0.4 mg (*)] 0.4 mg SL AD PRN 10/30/16 [Last Taken Unknown] Sodium Bicarbonate [Na Bicarb] 1,300 mg PO BID 10/30/16 [Last Taken 11/19/16] Vit B Cmplx 3/Folic AC/C/Biot [Ev-Peyton Rx Tablet] 1 each PO DAILY 10/30/16 [ Last Taken 11/19/16] amLODIPine BESYLATE [Norvasc 10 mg (*)] 10 mg PO DAILY 10/30/16 [Last Taken ] I have personally reviewed and updated: family history, medical history, social history, surgical history - Past Medical History coronary artery disease (Known coronary disease but has not undergone interventional cardiac catheterization), ESRD, GI bleed, GERD (Anemia of chronic disease, H/O UGIB x2 (first on Plavix +ASA, then on ASA alone), esophagitis), hypertension Additional medical history: Anemia of chronic kidney disease; upper GI bleed in the setting of anti-platelet medications, has occurred while on single and double agent therapy; 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; esophagitis - Surgical History Additional surgical history: R IJ tunneled catheter - Family History Additional family history: Mother with CVA and HTN - Social History Smoking Status: Former smoker Alcohol Use: None Drug Use: None Additional social history: Continues to work on non-HD days Review of Systems ROS: 10pt was reviewed & negative except for what was stated in HPI & below Physical Exam Temp Pulse Resp BP Pulse Ox 36.4 C 82 14 160/78 H 98 11/19/16 14:24 11/19/16 14:24 11/19/16 14:24 11/19/16 14:24 11/19/16 14:24 Constitutional: no apparent distress, appears nourished, not in pain Eyes: PERRL, anicteric sclera, EOMI Ears, Nose, Mouth, Throat: moist mucous membranes, hearing normal, ears appear normal, no oral mucosal ulcers Cardiovascular: regular rate and rhythym, no murmur, rub, or gallop, other ( dialysis catheter in left chest without signs of infections), No edema Respiratory: no respiratory distress, no rales or rhonchi, clear to auscultation Gastrointestinal: normoactive bowel sounds, soft, non-tender abdomen, no palpable masses Genitourinary: no bladder fullness, no bladder tenderness Skin: warm, normal color, no rashes or abrasions, no fluctuance, no induration, No mottled Musculoskeletal: full muscle strength, no muscle tenderness, normal joint ROM, no joint effusions Neurologic: AAOx3, No CN II-XII Intact Psychiatric: interacting appropriately, not anxious, not encephalopathic, thought process linear Lymph, Heme, Immunologic: no cervical LAD, no supraclavicular LAD Lab Data & Imaging Review 11/19/16 10:53 11/19/16 10:53 WBC 5.68 10^3/uL (3.80-9.50) 11/19/16 10:53 RBC 2.86 10^6/uL (4.40-6.38) L 11/19/16 10:53 Hgb 8.9 g/dL (13.7-17.5) L 11/19/16 10:53 Hct 27.3 % (40.0-51.0) L 11/19/16 10:53 MCV 95.5 fL (81.5-99.8) 11/19/16 10:53 MCH 31.1 pg (27.9-34.1) 11/19/16 10:53 MCHC 32.6 g/dL (32.4-36.7) 11/19/16 10:53 RDW 14.4 % (11.5-15.2) 11/19/16 10:53 Plt Count 132 10^3/uL (150-400) L 11/19/16 10:53 MPV 10.4 fL (8.7-11.7) 11/19/16 10:53 Neut % (Auto) 60.5 % (39.3-74.2) 11/19/16 10:53 Lymph % (Auto) 18.7 % (15.0-45.0) 11/19/16 10:53 [place] % (Auto) 7.4 % (4.5-13.0) 11/19/16 10:53 Eos % (Auto) 12.1 % (0.6-7.6) H 11/19/16 10:53 Baso % (Auto) 0.9 % (0.3-1.7) 11/19/16 10:53 Nucleat RBC Rel Count 0.0 % (0.0-0.2) 11/19/16 10:53 Absolute Neuts (auto) 3.44 10^3/uL (1.70-6.50) 11/19/16 10:53 Absolute Lymphs (auto) 1.06 10^3/uL (1.00-3.00) 11/19/16 10:53 Absolute Monos (auto) 0.42 10^3/uL (0.30-0.80) 11/19/16 10:53 Absolute Eos (auto) 0.69 10^3/uL (0.03-0.40) H 11/19/16 10:53 Absolute Basos (auto) 0.05 10^3/uL (0.02-0.10) 11/19/16 10:53 Absolute Nucleated RBC 0.00 10^3/uL (0-0.01) 11/19/16 10:53 Immature Gran % 0.4 % (0.0-1.1) 11/19/16 10:53 Immature Gran # 0.02 10^3/uL (0.00-0.10) 11/19/16 10:53 Sodium 145 mEq/L (134-144) H 11/19/16 10:53 Potassium 7.0 mEq/L (3.5-5.2) H* 11/19/16 10:53 Chloride 103 mEq/L (97-110) 11/19/16 10:53 Carbon Dioxide 15 mEq/l (22-31) L 11/19/16 10:53 Anion Gap 27 mEq/L (8-16) H 11/19/16 10:53 BUN 141 mg/dL (7-23) H* 11/19/16 10:53 Creatinine 16.2 mg/dL (0.7-1.3) H* 11/19/16 10:53 Estimated GFR 3 11/19/16 10:53 Glucose 101 mg/dL (70-100) H 11/19/16 10:53 Calcium 8.8 mg/dL (8.5-10.4) 11/19/16 10:53 Visualized and Interpreted EKG results: Yes EKG Interpretation: Positive for: other (sinus bradycardia with peaked t waves) Assessment & Plan Assessment: 66 y/o male with ESRD without outpatient HD benefits presents with #severe hyperkalemia #symptomatic uremia #diarrhea Plan: -HD per nephrology -cont home meds -consider further stool workup for infectious diarrhea if persists admit to inpatient status. will likely need multiple treatments given the severity of hyperkalemia
[2016-11-19] MEDS ORDERED: ONDANSETRON 4 MG/2 ML VIAL IVP PRN (16:09)
[2016-11-19] MEDS ORDERED: ACETAMINOPHEN 325 MG TAB PO PRN (16:09)
--- NOTE | 2016-11-19 16:37 | EDPHY ---
H & P Stated Complaint: here for dialysis, legs swollen - Personal History Current Tetanus/Diphtheria Vaccine: Yes Current Tetanus Diphtheria and Acellular Pertussis (TDAP): Yes Tetanus Vaccine Date: 2010 - Medical/Surgical History Hx Asthma: No Hx Chronic Respiratory Disease: No Hx Diabetes: No Hx Cardiac Disease: Yes Hx Renal Disease: Yes Hx Cirrhosis: No Hx Alcoholism: No Hx HIV/AIDS: No Hx Splenectomy or Spleen Trauma: No Other PMH: gout, htn, hernia, anemia, cad, esophagitis, gastric ulcer, renal failure, dialysis, heart stent, shingles - Social History Smoking Status: Former smoker Time Seen by Provider: 11/19/16 10:34 HPI/ROS: Chief complaint: Patient here for dialysis History of present illness: 66-year-old male with history of end-stage renal disease presents to the emergency department requesting dialysis. Patient does not receive outpatient dialysis. He has been seen multiple times at this hospital for dialysis. He was last seen last week, 11/12/2016. Returns today stating he feels unwell, feels somewhat swollen, has had diarrhea. Feels it is time for dialysis. No other complaints. Review of systems: A 10 point review of systems was obtained and other than described above was negative (Pablo Awan) - Physical Exam Exam: General Appearance: Alert, nontoxic. Eyes: Pupils equal and round no pallor or injection. ENT, Mouth: Mucous membranes moist. Respiratory: There are no retractions, lungs are clear to auscultation. Cardiovascular: Regular rate and rhythm. Gastrointestinal: Abdomen is soft and nontender, no masses, bowel sounds normal. Neurological: Alert. Strength and sensation intact and symmetrical. Skin: Warm and dry, no rashes. Musculoskeletal: Neck is supple nontender. Extremities are symmetrical, full range of motion. Psychiatric: Patient is oriented X 3, there is no agitation. (Pablo Awan) Constitutional: Initial Vital Signs Temperature (C) 36.3 C 11/19/16 09:33 Heart Rate 54 L 11/19/16 09:33 Respiratory Rate 16 11/19/16 09:33 Blood Pressure 166/74 H 11/19/16 09:33 O2 Sat (%) 100 11/19/16 09:33 Allergies/Adverse Reactions: No Known Allergies Allergy (Verified 11/12/16 11:12) Home Medications: Medication Instructions Recorded Atorvastatin Calcium [Lipitor 40 80 mg PO DAILY 04/25/17 mg (*)] Hydralazine HCl 25 mg PO DAILY@1200 10/30/16 Metoprolol Succinate Xr [Toprol Xl 100 mg PO DAILY 10/30/16 100 mg (*)] Multivitamins [Multivitamin (*)] 1 each PO DAILY 10/30/16 Nitroglycerin [Nitrostat 0.4 mg 0.4 mg SL AD PRN 10/30/16 (*)] Sodium Bicarbonate [Na Bicarb] 1,300 mg PO BID 10/30/16 Vit B Cmplx 3/Folic AC/C/Biot 1 each PO DAILY 10/30/16 [Ev-Peyton Rx Tablet] amLODIPine BESYLATE [Norvasc 10 mg 10 mg PO DAILY 10/30/16 (*)] Calcium Carbonate [Tums 500MG (*)] 500 mg PO TIDMEAL #90 tab.chew 11/01/16 Hydralazine HCl 50 mg PO TID #90 tablet 11/01/16 Pantoprazole Sodium [Protonix 40mg 40 mg PO BID #60 tab 11/01/16 (*)] Medical Decision Making ED Course/Re-evaluation: Patient is discussed with my secondary supervising physician Dr. Judie Jain. Patient presents feeling it is time for dialysis. Chemistry panel concerning for elevated creatinine and BUN, severe hyperkalemia decreased bicarb. EKG without dynamic changes. Patient is admitted to the hospitalist service Dr. White. Nephrology is consulted and will see patient for hemodialysis. Plan has been discussed with the patient who voiced understanding and agreement with it. (Pablo Awan) Other Provider: This patient was primarily evaluated and managed by the physician front desk assistant. I am familiar with this patient from previous encounters. I agree with the plan of care. I am the secondary supervising physician. (Judie Jain) - Data Points Laboratory Results: Laboratory Results 11/19/16 10:53 11/19/16 10:53 Departure - Departure Disposition: [facility] Inpatient Acute Clinical Impression: End stage renal disease, Hyperkalemia Condition: Fair
[2016-11-19] MEDS: CALCIUM CARBONATE 500 MG CHEWABLE TAB PO SCH (18:22)
[2016-11-19] MEDS: SODIUM BICARBONATE 650 MG TAB PO SCH (20:58)
[2016-11-19] MEDS: HEPARIN 5,000 UNIT/0.5 ML SYR SC SCH (20:58)
[2016-11-19] MEDS: PANTOPRAZOLE SODIUM 40 MG TAB PO SCH (20:58)
[2016-11-20 05:32] LABS: ANION GAP 17 mEq/L (8-16); CALCIUM 8.5 mg/dL (8.5-10.4); CARBON DIOXIDE 22 mEq/l (22-31); CHLORIDE 99 mEq/L (97-110); GLOMERULAR FILTRATION RATE 5; GLUCOSE 110 mg/dL (70-100); POTASSIUM 5.3 mEq/L (3.5-5.2); SODIUM 138 mEq/L (134-144)
[2016-11-20] MEDS: HEPARIN 5,000 UNIT/0.5 ML SYR SC SCH ×3 (06:25→21:50)
[2016-11-20 06:55] LABS: CREATININE 11.1 mg/dL (0.7-1.3)
--- NOTE | 2016-11-20 07:27 | GCON ---
[f rep st] CONSULTATION DATE OF CONSULTATION: 11/19/2016 REASON FOR CONSULTATION: Life-threatening hyperkalemia. HISTORY OF PRESENT ILLNESS: I have been asked to evaluate this patient regarding his hyperkalemia. He is a 66-year-old gentleman, with history of end-stage renal disease, presumed secondary to hyper tension. He has been dialysis dependent since June 2015, however unfortunately [place] and [place] benefits for [place] in this country. He has been dialyzing on an as-needed basis, mainly at [facility] since starting dialysis. Recently he has been coming in almost every week, typically with hyperkalemia. He was last dialyzed 6 days ago. He describes dev eloping loose stools over the past few days, he believes this is his indicator that he requires dial ysis. He presented to the emergency room this morning with a potassium of 7.0, serum bicarbonate of 15, a BUN of 141, and creatinine of 16.2. He was dialyzed for 2 hours earlier today, he developed a profound headache near the end of his treatment, which has now resolved. Of note, he has had thes e symptoms in the past on dialysis and there has been a suspicion of dialysis disequilibrium syndrom e. However, even when dialyzing on successive days at very slow rates, he seems to develop headache s near the end of every treatment. Currently he feels approximately at his baseline. He denies latanya ing Kayexalate at home prior to developing diarrhea. PAST MEDICAL HISTORY: 1. End-stage renal disease, presumed secondary to hypertension as outlined above. 2. Longstanding hypertension, severe at times. 3. Upper GI bleed related to duodenal stricture in 2015. 4. History of esophagitis. 5. Coronary artery disease. PAST SURGICAL HISTORY: None. ALLERGIES: No known drug allergies. ADMISSION MEDICATIONS: Hydralazine 50 mg p.o. 3 times daily, amlodipine 10 mg daily, Lipitor 80 mg daily, metoprolol 100 mg daily, calcium carbonate 500 mg 3 times daily with meals, Protonix 40 mg tw ice daily, sodium bicarbonate 1300 mg p.o. twice daily, multivitamin daily. SOCIAL HISTORY: He is originally from [place] but has been in the [place] for over 20 years. He is a nonsmoker, nondrinker. FAMILY HISTORY: Positive for severe hypertension, but no renal disease that he is aware of. His mo ther of a stroke, he believes caused by severe hypertension. REVIEW OF SYSTEMS: Positive for headaches and diarrhea. He denies any recent bleeding or shortness of breath or chest pain. He has had some other positives as noted in the HPI. The remainder of 10 -organ system review is negative. PHYSICAL EXAM: GENERAL: He is chronically ill-appearing, but in no acute distress. VITAL SIGNS: Blood pressure 179/89, heart rate 52, oxygenation is 100% on 3 L by nasal cannula. HEENT: Sclerae anicteric. Oral mucosa is moist. NECK: Supple without JVD or lymphadenopathy. LUNGS: Essentiall y clear to auscultation bilaterally. BACK: No CVA tenderness. HEART: Regular rate and rhythm, I do not appreciate a pericardial friction rub. ABDOMEN: Soft, nontender with normoactive bowel soun ds. There is no hepatosplenomegaly, masses or bruits. EXTREMITIES: There is no lower extremity ed valentin. SKIN: There are no skin rashes. Neuro: He appears somewhat disheveled, but is in no acute d istress. He is alert and oriented. There is no facial droop. His mentation appears to be perhaps slightly slower than in the past. : Singh catheter is absent. LABS: From earlier today: Sodium 145, potassium 7.0, chloride 103, CO2 15, BUN 141, creatinine 16. 2, glucose 101, calcium 8.8. White blood cell count 5.7, hemoglobin 8.9, platelets of 132. IMPRESSION AND PLAN: 1. Life-threatening hyperkalemia: The patient was dialyzed earlier today, we will plan to dialyze him again tomorrow. He did receive a short treatment today due to his history of possible disequili brium, tomorrow will be another shorter treatment due to his symptoms today. Due to his short treat ments, he very well may need a 3rd consecutive dialysis treatment on Saturday to adequately treat h is hyperkalemia. He has been counseled repeatedly regarding a low-potassium diet, his adherence to this is unclear to me. 2. End-stage renal disease: He is without outpatient benefits, as previously described. His last dialysis was 6 days ago prior to his short dialysis earlier today. We will perform another short tr eatment tomorrow and I suspect he will require at least a 3rd consecutive treatment on Saturday. U derrickunately, due to his immigration status, I do not see any prospects for him obtaining coverage f or outpatient dialysis any time soon. He therefore will have no choice but to continue receiving em ergent treatment in the hospital setting. 3. Hypertension: He should continue his current medications. I will decrease his ultrafiltration rate due to his symptoms today to see if this helps. 4. Anemia: He has received erythropoietin in the past, we will repeat this. Thank you for the consultation. Will follow with you. /[id number]/MODL
[2016-11-20] MEDS ORDERED: EPOETIN ALFA 10,000 UNIT/ML VIAL SC SCH (08:00)
[2016-11-20] MEDS: CALCIUM CARBONATE 500 MG CHEWABLE TAB PO SCH ×3 (08:40→17:25)
--- NOTE | 2016-11-20 09:49 | SOAPPROG ---
SOAP Progress Note Assessment/Plan: Assessment:Plan: ESR- Dialysis today -plan for dialysis tomorrow -no problems with dialysis dysequilibrium with short treatments, low BFR Hyperkalemia-resolved Access-stable Anemia-transfuse if needed -will give EPO x 1 Dispo-per hospital team 11/20/16 09:46 Subjective: stable on dialysis Objective: Vital Signs Temp Pulse Resp BP Pulse Ox 36.4 C 59 L 19 139/77 H 99 11/20/16 04:00 11/20/16 04:00 11/20/16 04:00 11/20/16 04:00 11/20/16 04:00 Laboratory Results 11/20/16 04:04 11/19/16 11/20/16 11/21/16 05:59 05:59 05:59 Intake Total 300 Balance 300 Physical Exam - Physical Exam General Appearance: alert, no apparent distress, thin EENT: normal ENT inspection Neck: normal inspection Respiratory: lungs clear, normal breath sounds, No respiratory distress Cardiac/Chest: regular rate, rhythm Abdomen: normal bowel sounds, non-tender, soft Extremities: No swelling ICD10 Worksheet Patient Problems: Problems Problem Status Onset End stage renal disease Acute Hyperkalemia Acute Abdominal pain Acute Acute renal failure Acute Acute upper GI bleed Acute Anemia Acute Anemia associated with acute blood loss Acute Chronic renal failure Acute Diarrhea Acute Hyperkalemia Acute Hyperkalemia Acute Hyperkalemia Acute Hyperkalemia Acute Hyperkalemia Acute Hyperkalemia Acute Hypertension Acute Hypocalcemia Acute Kidney failure Acute Kidney failure Acute Kidney failure Acute Metabolic acidosis Acute Renal failure Acute Shingles (herpes zoster) polyneuropathy Acute Uremia Acute
[2016-11-20] MEDS: SODIUM BICARBONATE 650 MG TAB PO SCH ×2 (11:41→21:50)
[2016-11-20] MEDS: NEPHROVITE FOLIC ACID/VIT B&C 1 TAB PO SCH (11:42)
[2016-11-20] MEDS: MULTIVITAMINS 1 EACH TAB PO SCH (11:43)
[2016-11-20] MEDS: ATORVASTATIN CALCIUM 40 MG TAB PO SCH (11:43)
[2016-11-20] MEDS: METOPROLOL SUCCINATE XR 100 MG TAB PO SCH (11:43)
[2016-11-20] MEDS: PANTOPRAZOLE SODIUM 40 MG TAB PO SCH ×2 (11:44→21:50)
[2016-11-20] MEDS: hydrALAZINE 25 MG TAB PO SCH (11:56)
[2016-11-20] MEDS ORDERED: HEPARIN 50,000 UNIT/10 ML VIAL ONE (12:00)
--- NOTE | 2016-11-20 16:23 | HOSPPROG ---
Hospitalist Progress Note Assessment/Plan: 66 yo M with PMH of ESRD and no routine HD access presenting with diarrhea and hyperkalemia # hyperkalemia: critically high on admission requiring urgent HD, K has improved with HD # ESRD: requiring HD but w/o outpatient access, now s/p 2nd run of HD today and with another run planned in the am # diarrhea: improved and related to elevated K # anemia: 2/2 anemia of chronic renal disease, trending # dispo: IP status Patient new to my care. Old records reviewed and summarized as above. Subjective: no significant overnight events, patient feeling fatigued, diarrhea improved Objective: Vital Signs Temp Pulse Resp BP Pulse Ox 36.9 C 63 16 150/90 H 96 11/20/16 15:12 11/20/16 15:12 11/20/16 15:12 11/20/16 15:12 11/20/16 15:12 Laboratory Results 11/20/16 04:04 11/19/16 11/20/16 11/21/16 05:59 05:59 05:59 Intake Total 300 250 Balance 300 250 awake alert nad anicteric op clear rrr no mrg cta b soft nt nd no cce warm dry well perfused oriented appropriate ICD10 Worksheet Patient Problems: Problems Problem Status Onset Acute renal failure Acute Anemia Acute Abdominal pain Acute Hyperkalemia Acute Hypocalcemia Acute Renal failure Acute Hypertension Acute Acute upper GI bleed Acute Anemia associated with acute blood loss Acute End stage renal disease Acute Metabolic acidosis Acute Diarrhea Acute Shingles (herpes zoster) polyneuropathy Acute Kidney failure Acute Hyperkalemia Acute Chronic renal failure Acute Hyperkalemia Acute Kidney failure Acute Hyperkalemia Acute Kidney failure Acute Uremia Acute Hyperkalemia Acute Hyperkalemia Acute Hyperkalemia Acute
[2016-11-21] MEDS: HEPARIN 5,000 UNIT/0.5 ML SYR SC SCH ×2 (06:20→15:33)
[2016-11-21] MEDS: METOPROLOL SUCCINATE XR 100 MG TAB PO SCH (08:45)
[2016-11-21] MEDS: SODIUM BICARBONATE 650 MG TAB PO SCH (08:45)
[2016-11-21] MEDS: CALCIUM CARBONATE 500 MG CHEWABLE TAB PO SCH ×2 (08:45→12:45)
[2016-11-21] MEDS: PANTOPRAZOLE SODIUM 40 MG TAB PO SCH (08:45)
[2016-11-21] MEDS: MULTIVITAMINS 1 EACH TAB PO SCH (08:45)
[2016-11-21] MEDS: ATORVASTATIN CALCIUM 40 MG TAB PO SCH (08:45)
[2016-11-21] MEDS: NEPHROVITE FOLIC ACID/VIT B&C 1 TAB PO SCH (08:45)
--- NOTE | 2016-11-21 12:30 | SOAPPROG ---
JACQUELINE Progress Note Assessment/Plan: Assessment: ESRD Plan: HD today home after HD 11/21/16 12:28 Subjective: feeling better today no cp sob nausea vomiting or anorexia spirits good energy OK as well Objective: Vital Signs Temp Pulse Resp BP Pulse Ox 37.1 C 66 14 146/78 H 94 11/21/16 12:00 11/21/16 12:00 11/21/16 12:00 11/21/16 12:00 11/21/16 12:00 Laboratory Results 11/20/16 04:04 11/20/16 11/21/16 11/22/16 05:59 05:59 05:59 Intake Total 300 700 Balance 300 700 Physical Exam - Physical Exam General Appearance: alert Respiratory: No rhonchi, No wheezing Cardiac/Chest: regular rate, rhythm, No edema, No friction rub Abdomen: normal bowel sounds, non-tender, soft, No distended Skin: warm/dry Extremities: No swelling Neuro/Psych: alert, normal mood/affect, oriented x 3 ICD10 Worksheet Patient Problems: Problems Problem Status Onset End stage renal disease Acute Hyperkalemia Acute Abdominal pain Acute Acute renal failure Acute Acute upper GI bleed Acute Anemia Acute Anemia associated with acute blood loss Acute Chronic renal failure Acute Diarrhea Acute Hyperkalemia Acute Hyperkalemia Acute Hyperkalemia Acute Hyperkalemia Acute Hyperkalemia Acute Hyperkalemia Acute Hypertension Acute Hypocalcemia Acute Kidney failure Acute Kidney failure Acute Kidney failure Acute Metabolic acidosis Acute Renal failure Acute Shingles (herpes zoster) polyneuropathy Acute Uremia Acute
[2016-11-21] MEDS: hydrALAZINE 25 MG TAB PO SCH (14:08)
--- NOTE | 2016-11-21 14:59 | PDDCSUM ---
Discharge Summary Discharge Summary: Dates of service 11/19-11/21/16 consultations: renal procedures performed: HD Hospital course by problem: # hyperkalemia: critically high on admission requiring urgent HD, K has improved with HD # ESRD: requiring HD but w/o outpatient access, now s/p 3rd run of HD, dc home, return precautions given # diarrhea: improved and related to elevated K # anemia: 2/2 anemia of chronic renal disease, trending Dc home > 35 minutes spent in dc of patient more than half in coordination of care
[2016-11-21 15:28] VITALS: BP 160/78; PULSE 62; RESP 16; TEMP 97.5; O2SAT 97
[2016-11-21] MEDS ORDERED: HEPARIN 50,000 UNIT/10 ML VIAL ONE (16:40)
== END 2016-11-21 18:23 | disposition home or self-care (01) | DRG 640 ==
LOC: F2W 17:37
PROVIDERS: ADMIT Family Medicine; ATTEND Family Medicine
PROC: 5A1D60Z (ICD-10-PCS; principal; 2016-11-19)
DX: E87.5 Hyperkalemia (principal); I12.0 Hypertensive chronic kidney disease with stage 5 chronic kidney disease or end stage renal disease; N18.6 End stage renal disease; R19.7 Diarrhea, unspecified; D63.8 Anemia in other chronic diseases classified elsewhere; Z87.891 Personal history of nicotine dependence; Z99.2 Dependence on renal dialysis
CPT/HCPCS: J0885; J1644

== ENCOUNTER 2016-11-27 12:57 | Inpatient (IN) | payer OTHER ==
--- NOTE | 2016-11-27 13:00 | EDPHY ---
H & P Time Seen by Provider: 11/27/16 12:57 HPI/ROS: CHIEF COMPLAINT: Diarrhea, here for dialysis HISTORY OF PRESENT ILLNESS: Admission November 19 through for hemodialysis. Patient is end-stage renal disease and presents about a week after his last dialysis with diarrhea which is the symptom that he typically gets when he has uremia and hyperkalemia. No dizziness or lightheadedness and no shortness of breath. REVIEW OF SYSTEMS: Eye: no change in vision ENT: no sore throat Cardiac: no chest pain or syncope Pulmonary: no cough or SOB Abdomen: no vomiting, diarrhea, abdominal pain Musculoskeletal: no back pain Skin: Rash on the medial right ankle which been present for several weeks and is unchanged. Neuro: no headache Constitutional: no fever : no urinary symptoms A comprehensive 10 point review of systems is otherwise negative aside from elements mentioned in the history of present illness. PAST MEDICAL HISTORY: End-stage renal disease without outpatient access to dialysis. Gout, hypertension, anemia, coronary disease with stenting Social history: Nonsmoker General Appearance: Alert and conversant, cooperative. Eyes: No scleral icterus. ENT, Mouth: Normal mucous membranes. Respiratory: Normal respiratory effort, breath sounds equal, lungs are clear to auscultation. No rales. Cardiovascular: Regular rate and rhythm. Right subclavian dialysis catheter in place. Gastrointestinal: Abdomen is soft and non tender. Neurological: Alert and oriented x3. Normally conversant. Face symmetric, normal movement and sensation in all extremities. Skin: Crusting rash on the medial right ankle which is not hot to the touch and does not have lymphangitis or pus. Not tender. Musculoskeletal: No peripheral edema and no joint swelling. Psychiatric: Not agitated. Emergency Department course/MDM: I-STAT, EKG, chemistries. 1352: Admission for dialysis, potassium noted on i-STAT as 5.7, BUN greater than 140 and creatinine 17. 1 amp IV bicarbonate, 10 mL is calcium gluconate IV for hyperkalemia. 1415: Serum potassium resulted as 6.0, insulin 10 units IV and dextrose 25 g ordered. 1432: [facility] for Nephrology will arrange dialysis. Smoking Status: Former smoker Constitutional: Initial Vital Signs Temperature (C) 36.4 C 11/27/16 13:03 Heart Rate 61 11/27/16 13:03 Respiratory Rate 18 11/27/16 13:03 Blood Pressure 169/66 H 11/27/16 13:03 O2 Sat (%) 100 11/27/16 13:03 O2 Delivery Mode Room Air Allergies/Adverse Reactions: No Known Allergies Allergy (Verified 11/27/16 13:02) Home Medications: Medication Instructions Recorded Atorvastatin Calcium [Lipitor 40 80 mg PO DAILY 10/30/16 mg (*)] Hydralazine HCl 25 mg PO DAILY@1200 10/30/16 Metoprolol Succinate Xr [Toprol Xl 100 mg PO DAILY 10/30/16 100 mg (*)] Multivitamins [Multivitamin (*)] 1 each PO DAILY 10/30/16 Nitroglycerin [Nitrostat 0.4 mg 0.4 mg SL AD PRN 10/30/16 (*)] Sodium Bicarbonate [Na Bicarb] 1,300 mg PO BID 10/30/16 Vit B Cmplx 3/Folic AC/C/Biot 1 each PO DAILY 10/30/16 [Ev-Peyton Rx Tablet] amLODIPine BESYLATE [Norvasc 10 mg 10 mg PO DAILY 10/30/16 (*)] Calcium Carbonate [Tums 500MG (*)] 500 mg PO TIDMEAL #90 tab.chew 11/01/16 Hydralazine HCl 50 mg PO TID #90 tablet 11/01/16 Pantoprazole Sodium [Protonix 40mg 40 mg PO BID #60 tab 11/01/16 (*)] Cholecalciferol Vit D3 [Vitamin D3 1,000 units PO DAILY 11/27/16 (*)] Medical Decision Making - Diagnostics EKG Interpretation: 12-lead EKG interpreted by me; official reading is in trace master. My interpretation is sinus rhythm rate 58 with QRS 92 Consult/Admit Bed Type: [place] [id number] Critical Care Time: Critical care time spent by me, Dr. Teran, exclusively with the care of this patient was 30 minutes, exclusive of PA or WEB PRESS OPERATOR ASSISTANT time and exclusive of separate procedures. The organ system at risk was metabolic and I ordered IV calcium and bicarbonate, discussion with hospitalist and four horse hitch driver to stabilize the patient and prevent worsening of the patient's condition. - Data Points Laboratory Results: Laboratory Results 11/27/16 13:34 11/27/16 13:34 05/23/17 05/23/17 05/23/17 13:38 13:34 13:34 WBC 6.53 10^3/uL 10^3/uL (3.80-9.50) RBC 2.43 10^6/uL L 10^6/uL (4.40-6.38) Hgb 7.7 g/dL L g/dL (13.7-17.5) POC Hgb 8.8 gm/dL L gm/dL (14.5-17.3) Hct 24.0 % L % (40.0-51.0) POC Hct 26 % L % (42.8-50.6) MCV 98.8 fL fL (81.5-99.8) MCH 31.7 pg pg (27.9-34.1) MCHC 32.1 g/dL L g/dL (32.4-36.7) RDW 15.2 % % (11.5-15.2) Plt Count 150 10^3/uL 10^3/uL (150-400) MPV 10.9 fL fL (8.7-11.7) Neut % (Auto) 66.9 % % (39.3-74.2) Lymph % (Auto) 14.2 % L % (15.0-45.0) Schuyler % (Auto) 6.0 % % (4.5-13.0) Eos % (Auto) 11.5 % H % (0.6-7.6) Baso % (Auto) 0.9 % % (0.3-1.7) Nucleat RBC Rel Count 0.0 % % (0.0-0.2) Absolute Neuts (auto) 4.37 10^3/uL 10^3/uL (1.70-6.50) Absolute Lymphs (auto) 0.93 10^3/uL L 10^3/uL (1.00-3.00) Absolute Monos (auto) 0.39 10^3/uL 10^3/uL (0.30-0.80) Absolute Eos (auto) 0.75 10^3/uL H 10^3/uL (0.03-0.40) Absolute Basos (auto) 0.06 10^3/uL 10^3/uL (0.02-0.10) Absolute Nucleated RBC 0.00 10^3/uL 10^3/uL (0-0.01) Immature Gran % 0.5 % % (0.0-1.1) Immature Gran # 0.03 10^3/uL 10^3/uL (0.00-0.10) POC Sodium 141 mEq/L mEq/L (134-144) Sodium 144 mEq/L mEq/L (134-144) POC Potassium 5.7 mEq/L H mEq/L (3.3-5.0) Potassium 6.0 mEq/L H mEq/L (3.5-5.2) POC Chloride 104 mEq/L mEq/L (96-108) Chloride 101 mEq/L mEq/L (97-110) Carbon Dioxide 20 mEq/l L mEq/l (22-31) Anion Gap 23 mEq/L H mEq/L (8-16) POC BUN > 140 mg/dL H* mg/dL (7-23) BUN 142 mg/dL H* mg/dL (7-23) Creatinine 16.0 mg/dL H* mg/dL (0.7-1.3) POC Creatinine 17.1 mg/dL H* mg/dL (0.8-1.5) Estimated GFR 3 Glucose 123 mg/dL H mg/dL (70-100) POC Glucose 121 mg/dL H mg/dL (70-100) Calcium 8.1 mg/dL L mg/dL (8.5-10.4) Total Bilirubin 0.6 mg/dL mg/dL (0.1-1.4) AST 15 IU/L L IU/L (17-59) ALT 28 IU/L IU/L (21-72) Alkaline Phosphatase 167 IU/L H IU/L (38-126) Total Protein 6.6 g/dL g/dL (6.3-8.2) Albumin 4.7 g/dL g/dL (3.5-5.0) Medications Given: Discontinued Medications Dextrose (Dextrose 50% Syringe) 25 gm IVP EDNOW ONE Stop: 11/27/16 14:15 Last Admin: 11/27/16 14:29 Dose: 25 gm Calcium Gluconate (Calcium Gluconate 1 Gm (Premix)) 50 mls @ 100 mls/hr IV EDNOW ONE Stop: 11/27/16 14:20 Last Admin: 11/27/16 14:19 Dose: 50 mls Insulin Human Regular (Humulin R) 10 unit IVP EDNOW ONE Stop: 11/27/16 14:15 Last Admin: 11/27/16 14:29 Dose: 10 units Sodium Bicarbonate (Sodium Bicarbonate) 50 meq IVP EDNOW ONE Stop: 11/27/16 13:52 Last Admin: 11/27/16 14:20 Dose: 50 meq Point of Care Test Results: 11/27/16 13:38 POC Sodium 141 POC Potassium 5.7 H POC Chloride 104 POC BUN > 140 H* POC Creatinine 17.1 H* POC Glucose 121 H Departure - Departure Disposition: [facility] Inpatient Acute Clinical Impression: Hyperkalemia, End stage renal disease Condition: Fair
--- NOTE | 2016-11-27 13:45 | CPEKG ---
Heart Rate: 58 RR Interval: 1034 P-R Interval: 176 QRSD Interval: 92 QT Interval: 468 QTC Interval: 460 P [place]: 72 QRS [place]: 70 T Wave [place]: 71 EKG Severity - NORMAL ECG - EKG Impression: SINUS RHYTHM Electronically Signed By: Esteban Teran 27-Nov-2016 13:53:03
[2016-11-27] MEDS ORDERED: CALCIUM GLUCONATE 50 ML IV ONE (13:51)
[2016-11-27] MEDS ORDERED: SODIUM BICARBONATE 50 MEQ/50 ML SYR IVP ONE (13:51)
[2016-11-27 13:53] LABS: % IMMATURE GRANULYOCYTES 0.5 % (0.0-1.1); ABSOLUTE IMMATURE GRANULOCYTES 0.03 10^3/uL (0.00-0.10); ADD DIFF? NO; ADD MORPH? NO; ADD SCAN? NO; ATYPICAL LYMPHOCYTE FLAG 0 (0-99); FRAGMENT RBC FLAG 0 (0-99); HEMOGLOBIN 7.7 g/dL (13.7-17.5); LEFT SHIFT FLG 0 (0-99); LIPEMIA HEMOLYSIS FLAG 80 (0-99); MEAN CELL HEMOGLOBIN 31.7 pg (27.9-34.1); MEAN CELL HEMOGLOBIN CONCENTR. 32.1 g/dL (32.4-36.7); MEAN CELL VOLUME 98.8 fL (81.5-99.8); MEAN PLATELET VOLUME 10.9 fL (8.7-11.7); PLATELET CLUMPS FLAG 0 (0-99); PLATELET COUNT 150 10^3/uL (150-400); RED BLOOD CELL COUNT 2.43 10^6/uL (4.40-6.38); RED CELL DISTRIBUTION WIDTH 15.2 % (11.5-15.2)
[2016-11-27 14:06] LABS: ALANINE AMINOTRANSFERASE 28 IU/L (21-72); ALBUMIN 4.7 g/dL (3.5-5.0); ALKALINE PHOSPHATASE 167 IU/L (38-126); ANION GAP 23 mEq/L (8-16); ASPARTATE AMINOTRANSFERASE 15 IU/L (17-59); BILIRUBIN,TOTAL 0.6 mg/dL (0.1-1.4); CALCIUM 8.1 mg/dL (8.5-10.4); CARBON DIOXIDE 20 mEq/l (22-31); CHLORIDE 101 mEq/L (97-110); GLUCOSE 123 mg/dL (70-100); SODIUM 144 mEq/L (134-144); TOTAL PROTEIN 6.6 g/dL (6.3-8.2)
[2016-11-27] MEDS ORDERED: INSULIN REGULAR HUMAN 100 UNIT/ML IVP ONE (14:14)
[2016-11-27] MEDS ORDERED: D50W 25 GM/50 ML SYR IVP ONE (14:14)
[2016-11-27 14:24] LABS: GLOMERULAR FILTRATION RATE 3
[2016-11-27] MEDS ORDERED: ONDANSETRON 4 MG/2 ML VIAL IVP PRN (15:33)
[2016-11-27] MEDS ORDERED: ACETAMINOPHEN 325 MG TAB PO PRN (15:33)
[2016-11-27] MEDS ORDERED: ONDANSETRON DISINTEGRATING 4 MG TAB PO PRN (15:33)
[2016-11-27] MEDS ORDERED: NITROGLYCERIN 0.4 MG BTL SL PRN (15:35)
[2016-11-27] MEDS ORDERED: MANNITOL 25% 12.5 GM/50 ML VIAL IV ONE (17:00)
--- NOTE | 2016-11-27 17:45 | PDGENHP ---
History and Physical - Chief Complaint Acute diarrhea - History of Present Illness PCP: [facility] HPI: 66-year-old male presenting with acute diarrhea characterized as loose stool, nonbloody, associated with nausea and edema located in the bilateral lower extremities. He reports that the symptoms are characteristic of his end- stage renal disease when it is acutely worsening. Onset of symptoms was progressive over the past 48 hours. Duration has been constant. He reports that the bilateral lower extremity edema is generally alleviated by dialysis. He has been taking all of his home medications and reports no other acute issues. History Information - Allergies/Home Medication List Allergies/Adverse Reactions: No Known Allergies Allergy (Verified 11/27/16 13:02) Home Medications: Atorvastatin Calcium [Lipitor 40 mg (*)] 80 mg PO DAILY 10/30/16 [Last Taken ] Hydralazine HCl 25 mg PO DAILY@1200 10/30/16 [Last Taken 11/27/16] Metoprolol Succinate Xr [Toprol Xl 100 mg (*)] 100 mg PO DAILY 10/30/16 [Last Taken 11/27/16] Multivitamins [Multivitamin (*)] 1 each PO DAILY 10/30/16 [Last Taken 11/27/16] Nitroglycerin [Nitrostat 0.4 mg (*)] 0.4 mg SL AD PRN 10/30/16 [Last Taken Unknown] Sodium Bicarbonate [Na Bicarb] 1,300 mg PO BID 10/30/16 [Last Taken 11/27/16 09: 00 1300MG] Vit B Cmplx 3/Folic AC/C/Biot [Ev-Peyton Rx Tablet] 1 each PO DAILY 10/30/16 [ Last Taken 11/27/16] amLODIPine BESYLATE [Norvasc 10 mg (*)] 10 mg PO DAILY 10/30/16 [Last Taken ] Cholecalciferol Vit D3 [Vitamin D3 (*)] 1,000 units PO DAILY 11/27/16 [Last Taken 11/27/16] I have personally reviewed and updated: family history, medical history, social history, surgical history - Past Medical History coronary artery disease (Known coronary disease but has not undergone interventional cardiac catheterization), ESRD, GI bleed, GERD (Anemia of chronic disease, H/O UGIB x2 (first on Plavix +ASA, then on ASA alone), esophagitis), hypertension Additional medical history: Anemia of chronic kidney disease; upper GI bleed in the setting of anti-platelet medications, has occurred while on single and double agent therapy; 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; esophagitis - Surgical History Additional surgical history: R IJ tunneled catheter - Family History Additional family history: Mother with CVA and HTN - Social History Smoking Status: Former smoker Additional social history: Continues to work on non-HD days Review of Systems ROS: 10pt was reviewed & negative except for what was stated in HPI & below Cardiac: Reports: edema Gastrointestinal: Reports: diarrhea, nausea Physical Exam Temp Pulse Resp BP Pulse Ox 37.1 C 69 18 151/79 H 99 11/27/16 17:17 11/27/16 17:17 11/27/16 17:17 11/27/16 17:17 11/27/16 17:17 Constitutional: no apparent distress, not in pain, chronically ill appearing, No uncomfortable Eyes: PERRL, anicteric sclera, EOMI Ears, Nose, Mouth, Throat: moist mucous membranes, hearing normal, ears appear normal, no oral mucosal ulcers Cardiovascular: systolic murmur ( 3/6 systolic murmur at apex and sternum), edema ( trace to 1+ bilateral lower extremities), No irregularly irregular, No tachycardia Respiratory: no respiratory distress, no rales or rhonchi, clear to auscultation Gastrointestinal: normoactive bowel sounds, soft, non-tender abdomen, no palpable masses Skin: warm, normal color, no rashes or abrasions, no fluctuance, no induration, No mottled Neurologic: AAOx3, sensation intact bilaterally, No weakness ( motor strength 5/ 5 bilateral lower extremity) Psychiatric: interacting appropriately, not anxious, not encephalopathic, thought process linear Lab Data & Imaging Review 11/27/16 13:34 11/27/16 13:34 WBC 6.53 10^3/uL (3.80-9.50) 11/27/16 13:34 RBC 2.43 10^6/uL (4.40-6.38) L 11/27/16 13:34 Hgb 7.7 g/dL (13.7-17.5) L 11/27/16 13:34 POC Hgb 6.8 gm/dL (14.5-17.3) L 11/27/16 15:35 Hct 24.0 % (40.0-51.0) L 11/27/16 13:34 POC Hct 20 % (42.8-50.6) L 11/27/16 15:35 MCV 98.8 fL (81.5-99.8) 11/27/16 13:34 MCH 31.7 pg (27.9-34.1) 11/27/16 13:34 MCHC 32.1 g/dL (32.4-36.7) L 11/27/16 13:34 RDW 15.2 % (11.5-15.2) 11/27/16 13:34 Plt Count 150 10^3/uL (150-400) 11/27/16 13:34 MPV 10.9 fL (8.7-11.7) 11/27/16 13:34 Neut % (Auto) 66.9 % (39.3-74.2) 11/27/16 13:34 Lymph % (Auto) 14.2 % (15.0-45.0) L 11/27/16 13:34 [place] % (Auto) 6.0 % (4.5-13.0) 11/27/16 13:34 Eos % (Auto) 11.5 % (0.6-7.6) H 11/27/16 13:34 Baso % (Auto) 0.9 % (0.3-1.7) 11/27/16 13:34 Nucleat RBC Rel Count 0.0 % (0.0-0.2) 11/27/16 13:34 Absolute Neuts (auto) 4.37 10^3/uL (1.70-6.50) 11/27/16 13:34 Absolute Lymphs (auto) 0.93 10^3/uL (1.00-3.00) L 11/27/16 13:34 Absolute Monos (auto) 0.39 10^3/uL (0.30-0.80) 11/27/16 13:34 Absolute Eos (auto) 0.75 10^3/uL (0.03-0.40) H 11/27/16 13:34 Absolute Basos (auto) 0.06 10^3/uL (0.02-0.10) 11/27/16 13:34 Absolute Nucleated RBC 0.00 10^3/uL (0-0.01) 11/27/16 13:34 Immature Gran % 0.5 % (0.0-1.1) 11/27/16 13:34 Immature Gran # 0.03 10^3/uL (0.00-0.10) 11/27/16 13:34 POC Sodium 142 mEq/L (134-144) 11/27/16 15:35 Sodium 144 mEq/L (134-144) 11/27/16 13:34 POC Potassium 5.6 mEq/L (3.3-5.0) H 11/27/16 15:35 Potassium 6.0 mEq/L (3.5-5.2) H 11/27/16 13:34 POC Chloride 106 mEq/L (96-108) 11/27/16 15:35 Chloride 101 mEq/L (97-110) 11/27/16 13:34 Carbon Dioxide 20 mEq/l (22-31) L 11/27/16 13:34 Anion Gap 23 mEq/L (8-16) H 11/27/16 13:34 POC BUN 135 mg/dL (7-23) H* 11/27/16 15:35 BUN 142 mg/dL (7-23) H* 11/27/16 13:34 Creatinine 16.0 mg/dL (0.7-1.3) H* 11/27/16 13:34 POC Creatinine 16.2 mg/dL (0.8-1.5) H* 11/27/16 15:35 Estimated GFR 3 11/27/16 13:34 Glucose 123 mg/dL (70-100) H 11/27/16 13:34 POC Glucose 101 mg/dL (70-100) H 11/27/16 15:35 Calcium 8.1 mg/dL (8.5-10.4) L 11/27/16 13:34 Total Bilirubin 0.6 mg/dL (0.1-1.4) 11/27/16 13:34 AST 15 IU/L (17-59) L 11/27/16 13:34 ALT 28 IU/L (21-72) 11/27/16 13:34 Alkaline Phosphatase 167 IU/L (38-126) H 11/27/16 13:34 Total Protein 6.6 g/dL (6.3-8.2) 11/27/16 13:34 Albumin 4.7 g/dL (3.5-5.0) 11/27/16 13:34 Visualized and Interpreted EKG results: Yes EKG Interpretation: Positive for: other ( normal sinus rhythm with slightly peaked T-waves in leads V3 through V5) Assessment & Plan Assessment: 66-year-old male presents with uremia and acute hyperkalemia in the setting of end-stage renal disease Plan: 1. Uremia. Acute, most likely responsible for his symptoms of diarrhea and nausea, BUN of greater than 140, most recent hemodialysis was on 11/21 -Dialyze -repeat chemistry in a.m., may require 2nd dialysis treatment tomorrow 2. Hyperkalemia. Acute, new problem this provider, further workup indicated. Most likely secondary to end-stage renal disease impaired clearance, the patient does continue to urinate ever so slightly on a daily basis but not enough to stabilize his serum potassium level -get hemodialysis - discussed with Dr. Russell, he reports to me that he will be contacting [facility] - monitor on telemetry - the patient received bicarbonate, calcium gluconate, insulin and glucose in the emergency department -repeat serum chemistry level in a.m., may require 2nd dialysis treatment tomorrow 3. End-stage renal disease. Patient has no access to outpatient hemodialysis, he presents when he is symptomatic and has acute inpatient indications for dialysis 4. Hypertension. Chronic, continue medications 5. Coronary artery disease. Chronic, continue home medications 6. Anemia of chronic kidney disease. No reports of recent blood loss in stool , hemoglobin level is between 6.8 and 8.0, no indication for emergent transfusion and will hold until tomorrow morning, repeating hemoglobin level prior to dialysis, likely transfusing 1 unit with hemodialysis Diet. Renal Prophylaxis. Low risk patient, SCDs Code. Full Disposition. Anticipated discharge uncertain this time, anticipated length stay is greater than 48 hours warranting inpatient admission status for acute hyperkalemia requiring hemodialysis with high risk comorbid uremia and end- stage renal disease
--- NOTE | 2016-11-27 19:32 | SOAPPROG ---
SOAP Progress Note Assessment/Plan: Assessment: Juan Manuel presents for emergent dialysis relating to ESRD without benefits and Hyperkalemia. He has been having some diarrhea, but otherwise is stable. He denies fevers, chills, dyspnea, chest pain or abdominal pain. Emergent dialysis has been arranged tonight. He will dialyze again tomorrow and then be discharged. Plan: 11/27/16 19:29 Subjective: Doing ok Objective: Vital Signs Temp Pulse Resp BP Pulse Ox 37.1 C 69 18 151/79 H 99 11/27/16 17:17 11/27/16 17:17 11/27/16 17:17 11/27/16 17:17 11/27/16 17:17 11/26/16 11/27/16 11/28/16 05:59 05:59 05:59 Intake Total 0 Output Total 0 Balance 0 Physical Exam - Physical Exam General Appearance: no apparent distress Neck: other (Catheter exit site ok) Respiratory: decreased breath sounds Cardiac/Chest: regular rate, rhythm Abdomen: non-tender, soft Skin: normal color Extremities: pedal edema Neuro/Psych: oriented x 3 ICD10 Worksheet Patient Problems: Problems Problem Status Onset End stage renal disease Acute Hyperkalemia Acute Abdominal pain Acute Acute renal failure Acute Acute upper GI bleed Acute Anemia Acute Anemia associated with acute blood loss Acute Chronic renal failure Acute Diarrhea Acute Hyperkalemia Acute Hyperkalemia Acute Hyperkalemia Acute Hyperkalemia Acute Hyperkalemia Acute Hyperkalemia Acute Hypertension Acute Hypocalcemia Acute Kidney failure Acute Kidney failure Acute Kidney failure Acute Metabolic acidosis Acute Renal failure Acute Shingles (herpes zoster) polyneuropathy Acute Uremia Acute
[2016-11-27] MEDS: CALCIUM CARBONATE 500 MG CHEWABLE TAB PO SCH (21:13)
[2016-11-27] MEDS: PANTOPRAZOLE SODIUM 40 MG TAB PO SCH (21:18)
[2016-11-27] MEDS: SODIUM BICARBONATE 650 MG TAB PO SCH (21:18)
[2016-11-27] MEDS ORDERED: HEPARIN 10,000 UNIT/10 ML MDV ONE (23:15)
[2016-11-28 05:20] LABS: % IMMATURE GRANULYOCYTES 0.4 % (0.0-1.1); ABSOLUTE IMMATURE GRANULOCYTES 0.02 10^3/uL (0.00-0.10); ADD DIFF? NO; ADD MORPH? NO; ADD SCAN? NO; ATYPICAL LYMPHOCYTE FLAG 0 (0-99); FRAGMENT RBC FLAG 0 (0-99); HEMATOCRIT 21.5 % (40.0-51.0); HEMOGLOBIN 7.1 g/dL (13.7-17.5); LEFT SHIFT FLG 0 (0-99); LIPEMIA HEMOLYSIS FLAG 80 (0-99); MEAN CELL HEMOGLOBIN 31.8 pg (27.9-34.1); MEAN CELL VOLUME 96.4 fL (81.5-99.8); MEAN PLATELET VOLUME 10.1 fL (8.7-11.7); PLATELET CLUMPS FLAG 0 (0-99); PLATELET COUNT 123 10^3/uL (150-400); RED BLOOD CELL COUNT 2.23 10^6/uL (4.40-6.38); RED CELL DISTRIBUTION WIDTH 15.2 % (11.5-15.2)
[2016-11-28 05:40] LABS: ANION GAP 16 mEq/L (8-16); CALCIUM 8.1 mg/dL (8.5-10.4); CARBON DIOXIDE 24 mEq/l (22-31); CHLORIDE 103 mEq/L (97-110); GLOMERULAR FILTRATION RATE 5; GLUCOSE 98 mg/dL (70-100); POTASSIUM 5.1 mEq/L (3.5-5.2); SODIUM 143 mEq/L (134-144)
[2016-11-28 05:48] LABS: CREATININE 10.4 mg/dL (0.7-1.3)
--- NOTE | 2016-11-28 08:36 | SOAPPROG ---
SOAP Progress Note Assessment/Plan: Assessment: 1. Hyperkalemia. Improving. HD today then can d/c. 2. ESRD. No outpatient benefits. Q week labs with primary clinic, return here prn emergent indications for dialysis. 3. Anemia of ESRD. Hgb in 7s. Repeat dose of procrit today. 4. HTN. UF 2 L with dialysis today. Continue home bp meds. Plan: 11/28/16 08:35 Subjective: Patient seen and examined on dialysis. No complaints. Objective: Vital Signs Temp Pulse Resp BP Pulse Ox 36.8 C 56 L 12 173/85 H 100 11/28/16 07:04 11/28/16 07:04 11/28/16 07:04 11/28/16 07:04 11/28/16 07:04 Laboratory Results 11/28/16 05:09 11/28/16 05:09 11/27/16 11/28/16 11/29/16 05:59 05:59 05:59 Intake Total 300 Output Total 150 100 Balance 150 -100 On dialysis Qb 350 RRR, no m/g/r CTAB Abdom soft, nt Tr edema ICD10 Worksheet Patient Problems: Problems Problem Status Onset Acute renal failure Acute Anemia Acute Abdominal pain Acute Hyperkalemia Acute Hypocalcemia Acute Renal failure Acute Hypertension Acute Acute upper GI bleed Acute Anemia associated with acute blood loss Acute End stage renal disease Acute Metabolic acidosis Acute Diarrhea Acute Shingles (herpes zoster) polyneuropathy Acute Kidney failure Acute Hyperkalemia Acute Chronic renal failure Acute Hyperkalemia Acute Kidney failure Acute Hyperkalemia Acute Kidney failure Acute Uremia Acute Hyperkalemia Acute Hyperkalemia Acute Hyperkalemia Acute
[2016-11-28] MEDS ORDERED: EPOETIN ALFA 10,000 UNIT/ML VIAL SC SCH (08:45)
[2016-11-28] MEDS ORDERED: MULTIVITAMINS 1 EACH TAB PO SCH (09:00)
[2016-11-28] MEDS ORDERED: METOPROLOL SUCCINATE XR 100 MG TAB PO SCH (09:00)
[2016-11-28] MEDS ORDERED: ATORVASTATIN CALCIUM 40 MG TAB PO SCH (09:00)
[2016-11-28] MEDS ORDERED: CHOLECALCIFEROL VIT D3 1,000 UNITS TAB PO SCH (09:00)
[2016-11-28] MEDS ORDERED: NEPHROVITE FOLIC ACID/VIT B&C 1 TAB PO SCH (09:00)
[2016-11-28] MEDS ORDERED: hydrALAZINE 25 MG TAB PO SCH (12:00)
[2016-11-28] MEDS ORDERED: HEPARIN 50,000 UNIT/10 ML VIAL ONE (12:00)
[2016-11-28] MEDS: CALCIUM CARBONATE 500 MG CHEWABLE TAB PO SCH ×2 (12:21→12:23)
[2016-11-28] MEDS: SODIUM BICARBONATE 650 MG TAB PO SCH (12:26)
[2016-11-28] MEDS: PANTOPRAZOLE SODIUM 40 MG TAB PO SCH (12:27)
--- NOTE | 2016-11-28 13:40 | WOCRNPDOC ---
WOCRN Advanced Assessment Note - Skin Integrity Problem, Advanced Assess Left Ankle Dermatitis Dressing Type: Open to Air Exudate Amount: Scant Exudate Characteristic(s): Serous Skin Integrity Problem Comment: Plaque, thick, crusty, scarred area of dermatitis with a distinct border. Patient somulent during assessment. Per previous wound care charting wound has been present for an extensive period of time. Unknown etiology. Unknown if this is getting bigger or for how long it has been going on. Recommend dermatological consult. Relayed this to Preeti MILAN. Wound care will not follow. May cover area with mepilex transfer and kerlix prn.
--- NOTE | 2016-11-28 16:18 | GDS ---
[f rep st] DISCHARGE SUMMARY DISCHARGE DIAGNOSES: 1. Acute uremia. 2. Acute hyperkalemia. 3. End-stage renal disease. 4. Anemia of chronic kidney disease. CONSULTATIONS DURING THIS ADMISSION: Nephrology. PROCEDURES DURING THIS ADMISSION: Hemodialysis. PRIMARY CARE PROVIDER: [facility]. CHIEF COMPLAINT: Acute diarrhea and lower extremity edema. SUBJECTIVE: Patient is feeling well at time of discharge. He did have a headache during dialysis, and this has since resolved. PHYSICAL EXAMINATION: VITAL SIGNS: At time of discharge, systolic blood pressure is 141/70, heart rate 60, afebrile overnight. EXTREMITIES: Lower extremity edema is improved from day prior, trace in right lower extremity. Dialysis catheter site is not bleeding. HEART: Rhythm is regular with 2/6 systolic murmur at the sternum and apex. LUNGS: Clear to auscultation bilaterally without any inspiratory crackles or expiratory wheezes. LABORATORY VALUES: At time of discharge, potassium 5.1, creatinine 1, BUN 92 prior to hemodialysis, hemoglobin 7.1. HOSPITAL COURSE BY PROBLEM: 1. Acute uremia. The most likely cause of the patient's diarrhea and nausea symptoms on presentation. His BUN was greater than 140 and the patient's symptoms were characteristic of his uremia from end-stage renal disease. He required urgent hemodialysis and he received 2 treatments. His uremic symptoms had improved at time of discharge. 2. Acute hyperkalemia. Secondary to end-stage renal disease and lack of access to hemodialysis. He was initially treated with bicarbonate, calcium gluconate, insulin, D50 in the emergency department, and then was dialyzed twice. His potassium level was 5.1 prior to his discharge hemodialysis session. He was monitored on telemetry during this hospitalization. 3. End-stage renal disease. The patient has end-stage renal disease and lack of access to outpatient hemodialysis. He presents to [facility] for inpatient hemodialysis when it is acutely indicated. He received dialysis and is stable for discharge home. He did experience disequilibrium symptoms during his session and volume removal was discontinued on the second session. His symptoms have improved at time of discharge. 4. Anemia of chronic kidney disease. The patient has anemia of chronic kidney disease and he received erythropoietin during his hospitalization. He did not require blood transfusion. He is not tachycardic or hypoxic. His blood count will be checked next time that he presents for acute inpatient hemodialysis. DISCHARGE MEDICATIONS: Please see official discharge medication reconciliation sheet and chart. Of note, he is on all of his home medications without any changes. DISCHARGE INSTRUCTIONS: The patient should return to the emergency department when he begins experiencing acute uremic symptoms or those of volume overload. It was also recommended to him by Wound Care that he follow up with a relief salesperson and the practice of [facility] has been recommended to the patient. That patient discharged prior to the originally anticipated 48hrs 2/2 highly efficient and expeditious care from his team, as well as rapid recovery. Greater than 30 minutes were spent on direct patient care as well as discharge planning and preparation. It was a pleasure participating in the care of the patient. /[id number]/MODL MTDD
[2016-11-28 17:09] VITALS: BP 141/74; PULSE 61; RESP 15; TEMP 97.8; O2SAT 96
== END 2016-11-28 17:11 | disposition home or self-care (01) | DRG 684 ==
LOC: OBSVTOIN 13:51 → F3E 16:03
PROVIDERS: ADMIT Internal Medicine; ATTEND Internal Medicine
PROC: 5A1D60Z (ICD-10-PCS; principal; 2016-11-27)
DX: N18.6 End stage renal disease (principal); E87.5 Hyperkalemia; D63.1 Anemia in chronic kidney disease; I12.0 Hypertensive chronic kidney disease with stage 5 chronic kidney disease or end stage renal disease; Z99.2 Dependence on renal dialysis; R21 Rash and other nonspecific skin eruption; I25.10 Atherosclerotic heart disease of native coronary artery without angina pectoris; M10.9 Gout, unspecified; K21.9 Gastro-esophageal reflux disease without esophagitis; Z95.5 Presence of coronary angioplasty implant and graft
CPT/HCPCS: 82947-QW; 96365; J0610; J0885; J1644; J1815; J2150

== ENCOUNTER 2016-12-03 13:07 | Observation (INO) | payer OTHER ==
--- NOTE | 2016-12-03 13:46 | EDPHY ---
H & P Time Seen by Provider: 12/03/16 13:26 HPI/ROS: Chief complaint. Needs dialysis HPI. 66-year-old male with end-stage renal disease with last dialysis on November 27. He is here with complaint of needing dialysis. He has some lower extremity edema that is generally relieved by dialysis. Denies fever, chest discomfort, trouble breathing. No vomiting or diarrhea. ROS Constitutional. no fever/chills, no weakness Eyes. no problems with vision ENT. no sore throat, no nasal drainage Cardiovascular. no chest pain Respiratory. no shortness of breath, no cough Abdominal. no abdominal pain, no nausea/vomiting, no diarrhea . no problems urinating MS. no calf pain/swelling, no neck/back pain, no joint pain Skin. no rash Lymph. no swollen glands Neuro. no headache, no dizziness, no difficulty walking or with speech Past Medical/Surgical History: Past medical history includes end-stage renal disease, gout, hypertension, anemia, coronary artery disease, peptic ulcer disease a, heart stent, single Social History: Single, nonsmoker, no alcohol Smoking Status: Former smoker Physical Exam: General Appearance: Alert well-developed male mild distress vital signs are stable Eyes: Pupils equal and round no pallor or injection. ENT, Mouth: Mucous membranes are moist. Respiratory: There are no retractions, lungs are clear to auscultation. Cardiovascular: Regular rate and rhythm. Gastrointestinal: Abdomen is soft and nontender, no masses, bowel sounds normal. Neurological: Awake and alert, sensory and motor exams grossly normal. Skin: Warm and dry, no rashes. Musculoskeletal: Neck is supple nontender. Extremities symmetrical, full range of motion. Mild peripheral edema Psychiatric: Patient is oriented X 3, there is no agitation. Constitutional: Initial Vital Signs Temperature (C) 36.4 C 12/03/16 13:12 Heart Rate 58 L 12/03/16 13:12 Respiratory Rate 18 12/03/16 13:12 Blood Pressure 145/79 H 12/03/16 13:12 O2 Sat (%) 99 12/03/16 13:12 O2 Delivery Mode Room Air Allergies/Adverse Reactions: No Known Allergies Allergy (Verified 12/03/16 13:11) Home Medications: Medication Instructions Recorded Atorvastatin Calcium [Lipitor 40 80 mg PO DAILY 10/30/16 mg (*)] Hydralazine HCl 25 mg PO DAILY@1200 10/30/16 Metoprolol Succinate Xr [Toprol Xl 100 mg PO DAILY 10/30/16 100 mg (*)] Multivitamins [Multivitamin (*)] 1 each PO DAILY 10/30/16 Nitroglycerin [Nitrostat 0.4 mg 0.4 mg SL AD PRN 10/30/16 (*)] Sodium Bicarbonate [Na Bicarb] 1,300 mg PO BID 10/30/16 Vit B Cmplx 3/Folic AC/C/Biot 1 each PO DAILY 10/30/16 [Ev-Peyton Rx Tablet] amLODIPine BESYLATE [Norvasc 10 mg 10 mg PO DAILY 10/30/16 (*)] Calcium Carbonate [Tums 500MG (*)] 500 mg PO TIDMEAL #90 tab.chew 11/01/16 Hydralazine HCl 50 mg PO TID #90 tablet 11/01/16 Pantoprazole Sodium [Protonix 40mg 40 mg PO BID #60 tab 11/01/16 (*)] Cholecalciferol Vit D3 [Vitamin D3 1,000 units PO DAILY 11/27/16 (*)] Medical Decision Making - Diagnostics EKG Interpretation: EKG interpreted by me shows normal sinus rhythm with normal interval and axis. QRS is normal. No significant ST elevation or depression. Peaked T appearance. Rate 53 Procedures: IV normal saline Patient given 1 amp of sodium bicarbonate, 10 cc calcium gluconate, 10 mg regular insulin and 25 mg of dextrose intravenously ED Course/Re-evaluation: Patient's potassium is 6.5. Patient has been given the above medication to counteract the hyperkalemia. I consulted and discussed case with Dr. White who will see the patient in the emergency department. I have called and consulted and left messages on the answering service for , nephrology, however these calls have not been returned Re-evaluation patient is stable. Repeat Chem 7 is ordered Critical Care Time: Critical care time exclusive procedures 40 minutes - Data Points Laboratory Results: Laboratory Results 12/03/16 13:55 12/03/16 13:55 12/03/16 12/03/16 13:55 13:55 WBC 7.40 10^3/uL 10^3/uL (3.80-9.50) RBC 2.23 10^6/uL L 10^6/uL (4.40-6.38) Hgb 7.2 g/dL L g/dL (13.7-17.5) Hct 22.3 % L % (40.0-51.0) MCV 100.0 fL H fL (81.5-99.8) MCH 32.3 pg pg (27.9-34.1) MCHC 32.3 g/dL L g/dL (32.4-36.7) RDW 15.7 % H % (11.5-15.2) Plt Count 150 10^3/uL 10^3/uL (150-400) MPV 11.1 fL fL (8.7-11.7) Neut % (Auto) 67.9 % % (39.3-74.2) Lymph % (Auto) 13.2 % L % (15.0-45.0) [place] % (Auto) 6.5 % % (4.5-13.0) Eos % (Auto) 11.2 % H % (0.6-7.6) Baso % (Auto) 0.8 % % (0.3-1.7) Nucleat RBC Rel Count 0.3 % H % (0.0-0.2) Absolute Neuts (auto) 5.02 10^3/uL 10^3/uL (1.70-6.50) Absolute Lymphs (auto) 0.98 10^3/uL L 10^3/uL (1.00-3.00) Absolute Monos (auto) 0.48 10^3/uL 10^3/uL (0.30-0.80) Absolute Eos (auto) 0.83 10^3/uL H 10^3/uL (0.03-0.40) Absolute Basos (auto) 0.06 10^3/uL 10^3/uL (0.02-0.10) Absolute Nucleated RBC 0.02 10^3/uL H 10^3/uL (0-0.01) Immature Gran % 0.4 % % (0.0-1.1) Immature Gran # 0.03 10^3/uL 10^3/uL (0.00-0.10) Sodium 141 mEq/L mEq/L (134-144) Potassium 6.5 mEq/L H* mEq/L (3.5-5.2) Chloride 101 mEq/L mEq/L (97-110) Carbon Dioxide 21 mEq/l L mEq/l (22-31) Anion Gap 19 mEq/L H mEq/L (8-16) BUN 138 mg/dL H* mg/dL (7-23) Creatinine 15.2 mg/dL H* mg/dL (0.7-1.3) Estimated GFR 3 Glucose 118 mg/dL H mg/dL (70-100) Calcium 8.1 mg/dL L mg/dL (8.5-10.4) Departure - Departure Disposition: [facility] Inpatient Acute Condition: Fair Referrals: Jacqueline Rodriges MD [Primary Care Provider] - As per Instructions
[2016-12-03 14:01] LABS: % IMMATURE GRANULYOCYTES 0.4 % (0.0-1.1); ABSOLUTE IMMATURE GRANULOCYTES 0.03 10^3/uL (0.00-0.10); ABSOLUTE NRBC COUNT 0.02 10^3/uL (0-0.01); ADD DIFF? NO; ADD MORPH? NO; ADD SCAN? NO; ATYPICAL LYMPHOCYTE FLAG 0 (0-99); FRAGMENT RBC FLAG 0 (0-99); HEMATOCRIT 22.3 % (40.0-51.0); HEMOGLOBIN 7.2 g/dL (13.7-17.5); LEFT SHIFT FLG 0 (0-99); LIPEMIA HEMOLYSIS FLAG 80 (0-99); MEAN CELL HEMOGLOBIN 32.3 pg (27.9-34.1); MEAN CELL HEMOGLOBIN CONCENTR. 32.3 g/dL (32.4-36.7); MEAN PLATELET VOLUME 11.1 fL (8.7-11.7); NRBC-AUTO% 0.3 % (0.0-0.2); PLATELET CLUMPS FLAG 30 (0-99); PLATELET COUNT 150 10^3/uL (150-400); RED BLOOD CELL COUNT 2.23 10^6/uL (4.40-6.38); RED CELL DISTRIBUTION WIDTH 15.7 % (11.5-15.2)
[2016-12-03 14:14] LABS: ANION GAP 19 mEq/L (8-16); CALCIUM 8.1 mg/dL (8.5-10.4); CARBON DIOXIDE 21 mEq/l (22-31); CHLORIDE 101 mEq/L (97-110); GLUCOSE 118 mg/dL (70-100); POTASSIUM 6.5 mEq/L (3.5-5.2); SODIUM 141 mEq/L (134-144)
[2016-12-03 14:23] LABS: CREATININE 15.2 mg/dL (0.7-1.3); GLOMERULAR FILTRATION RATE 3
--- NOTE | 2016-12-03 14:24 | CPEKG ---
Heart Rate: 53 RR Interval: 1132 P-R Interval: 184 QRSD Interval: 104 QT Interval: 484 QTC Interval: 455 P Bigelow: 73 QRS Bigelow: 77 T Wave Bigelow: 71 EKG Severity - NORMAL ECG - EKG Impression: SINUS RHYTHM Electronically Signed By: Tex Ford 03-Dec-2016 15:37:17
[2016-12-03] MEDS ORDERED: SODIUM BICARBONATE 50 MEQ/50 ML SYR IVP ONE (14:38)
[2016-12-03] MEDS ORDERED: D50W 25 GM/50 ML SYR IVP ONE (14:38)
[2016-12-03] MEDS ORDERED: INSULIN REGULAR HUMAN 100 UNIT/ML IVP ONE (14:38)
[2016-12-03] MEDS ORDERED: CALCIUM GLUCONATE 50 ML IV ONE (14:39)
[2016-12-03] MEDS ORDERED: ONDANSETRON 4 MG/2 ML VIAL IVP PRN (16:06)
[2016-12-03] MEDS ORDERED: ACETAMINOPHEN 325 MG TAB PO PRN (16:06)
[2016-12-03] MEDS ORDERED: ONDANSETRON DISINTEGRATING 4 MG TAB PO PRN (16:06)
--- NOTE | 2016-12-03 16:08 | PDGENHP ---
History and Physical - Chief Complaint Here for dialysis - History of Present Illness This 66-year-old male with history of end-stage renal disease on hemodialysis. Last treatment was done here at [facility] November 27 and . Patient is unable to establish outpatient dialysis due to lack of payor source. He denies any shortness of breath. Denies any chest pain. He has been tolerating a regular diet. He denies any fevers or chills. He has been having discomfort in his right ankle due to a rash that is itchy. History Information - Allergies/Home Medication List Allergies/Adverse Reactions: No Known Allergies Allergy (Verified 12/03/16 13:11) Home Medications: Atorvastatin Calcium [Lipitor 40 mg (*)] 80 mg PO DAILY 10/30/16 [Last Taken ] Hydralazine HCl 25 mg PO DAILY@1200 10/30/16 [Last Taken 11/27/16] Metoprolol Succinate Xr [Toprol Xl 100 mg (*)] 100 mg PO DAILY 10/30/16 [Last Taken 11/27/16] Multivitamins [Multivitamin (*)] 1 each PO DAILY 10/30/16 [Last Taken 11/27/16] Nitroglycerin [Nitrostat 0.4 mg (*)] 0.4 mg SL AD PRN 10/30/16 [Last Taken Unknown] Sodium Bicarbonate [Na Bicarb] 1,300 mg PO BID 10/30/16 [Last Taken 11/27/16 09: 00 1300MG] Vit B Cmplx 3/Folic AC/C/Biot [Ev-Peyton Rx Tablet] 1 each PO DAILY 10/30/16 [ Last Taken 11/27/16] amLODIPine BESYLATE [Norvasc 10 mg (*)] 10 mg PO DAILY 10/30/16 [Last Taken ] Cholecalciferol Vit D3 [Vitamin D3 (*)] 1,000 units PO DAILY 11/27/16 [Last Taken 11/27/16] I have personally reviewed and updated: family history, medical history, social history, surgical history - Past Medical History coronary artery disease (Known coronary disease but has not undergone interventional cardiac catheterization), ESRD, GI bleed, GERD (Anemia of chronic disease, H/O UGIB x2 (first on Plavix +ASA, then on ASA alone), esophagitis), hypertension Additional medical history: Anemia of chronic kidney disease; upper GI bleed in the setting of anti-platelet medications, has occurred while on single and double agent therapy; 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; esophagitis - Surgical History Additional surgical history: R IJ tunneled catheter - Family History Additional family history: Mother with CVA and HTN - Social History Smoking Status: Former smoker Additional social history: Continues to work on non-HD days Review of Systems ROS: 10pt was reviewed & negative except for what was stated in HPI & below Physical Exam Temp Pulse Resp BP Pulse Ox 36.5 C 58 L 20 129/62 H 98 12/03/16 15:30 12/03/16 15:30 12/03/16 15:30 12/03/16 15:30 12/03/16 15:30 Constitutional: no apparent distress, appears nourished, not in pain Eyes: PERRL, anicteric sclera, EOMI Ears, Nose, Mouth, Throat: moist mucous membranes, hearing normal, ears appear normal, no oral mucosal ulcers Cardiovascular: regular rate and rhythym, no murmur, rub, or gallop, other ( Dialysis catheter in place right chest), No edema Respiratory: no respiratory distress, no rales or rhonchi, clear to auscultation , No rhonchi Gastrointestinal: normoactive bowel sounds, soft, non-tender abdomen, no palpable masses, No guarding, No rebound Genitourinary: no bladder fullness, no bladder tenderness Skin: warm, rash (Dry scaling skin right ankle without any erythema but with significant scaling and crusting) Musculoskeletal: full muscle strength, no muscle tenderness, normal joint ROM, no joint effusions Neurologic: AAOx3, CN II-XII Intact, No facial droop Psychiatric: interacting appropriately, not anxious, not encephalopathic, thought process linear Lab Data & Imaging Review 12/03/16 13:55 12/03/16 13:55 WBC 7.40 10^3/uL (3.80-9.50) 12/03/16 13:55 RBC 2.23 10^6/uL (4.40-6.38) L 12/03/16 13:55 Hgb 7.2 g/dL (13.7-17.5) L 12/03/16 13:55 Hct 22.3 % (40.0-51.0) L 12/03/16 13:55 MCV 100.0 fL (81.5-99.8) H 12/03/16 13:55 MCH 32.3 pg (27.9-34.1) 12/03/16 13:55 MCHC 32.3 g/dL (32.4-36.7) L 12/03/16 13:55 RDW 15.7 % (11.5-15.2) H 12/03/16 13:55 Plt Count 150 10^3/uL (150-400) 12/03/16 13:55 MPV 11.1 fL (8.7-11.7) 12/03/16 13:55 Neut % (Auto) 67.9 % (39.3-74.2) 12/03/16 13:55 Lymph % (Auto) 13.2 % (15.0-45.0) L 12/03/16 13:55 [place] % (Auto) 6.5 % (4.5-13.0) 12/03/16 13:55 Eos % (Auto) 11.2 % (0.6-7.6) H 12/03/16 13:55 Baso % (Auto) 0.8 % (0.3-1.7) 12/03/16 13:55 Nucleat RBC Rel Count 0.3 % (0.0-0.2) H 12/03/16 13:55 Absolute Neuts (auto) 5.02 10^3/uL (1.70-6.50) 12/03/16 13:55 Absolute Lymphs (auto) 0.98 10^3/uL (1.00-3.00) L 12/03/16 13:55 Absolute Monos (auto) 0.48 10^3/uL (0.30-0.80) 12/03/16 13:55 Absolute Eos (auto) 0.83 10^3/uL (0.03-0.40) H 12/03/16 13:55 Absolute Basos (auto) 0.06 10^3/uL (0.02-0.10) 12/03/16 13:55 Absolute Nucleated RBC 0.02 10^3/uL (0-0.01) H 12/03/16 13:55 Immature Gran % 0.4 % (0.0-1.1) 12/03/16 13:55 Immature Gran # 0.03 10^3/uL (0.00-0.10) 12/03/16 13:55 Sodium 141 mEq/L (134-144) 12/03/16 13:55 Potassium 6.5 mEq/L (3.5-5.2) H* 12/03/16 13:55 Chloride 101 mEq/L (97-110) 12/03/16 13:55 Carbon Dioxide 21 mEq/l (22-31) L 12/03/16 13:55 Anion Gap 19 mEq/L (8-16) H 12/03/16 13:55 BUN 138 mg/dL (7-23) H* 12/03/16 13:55 Creatinine 15.2 mg/dL (0.7-1.3) H* 12/03/16 13:55 Estimated GFR 3 12/03/16 13:55 Glucose 118 mg/dL (70-100) H 12/03/16 13:55 Calcium 8.1 mg/dL (8.5-10.4) L 12/03/16 13:55 Visualized and Interpreted EKG results: Yes EKG Interpretation: Positive for: normal sinsus rhythm. Negative for: ST elevation, ST depression Assessment & Plan Assessment: This is a 66 y/o male with ESRD last HD 11/27-11/08 here with #acute on chronic renal failure with hyperkalemia -I alerted Dr. Wolfe of the patient's arrival who will arrange Dialysis -he was treated medically for hyperkalemia in the ED #Ankle rash ? Xerosis -trial of an emollient # anemia of chronic disease Disposition: The patient will be admitted to the hospital for hemodialysis
[2016-12-03 17:06] LABS: ANION GAP 18 mEq/L (8-16); CALCIUM 9.1 mg/dL (8.5-10.4); CARBON DIOXIDE 21 mEq/l (22-31); CHLORIDE 104 mEq/L (97-110); GLUCOSE 82 mg/dL (70-100); POTASSIUM 6.2 mEq/L (3.5-5.2); SODIUM 143 mEq/L (134-144)
[2016-12-03 17:14] LABS: CREATININE 13.7 mg/dL (0.7-1.3); GLOMERULAR FILTRATION RATE 4
--- NOTE | 2016-12-03 17:53 | PDGENHP ---
History and Physical - Chief Complaint ESRD - History of Present Illness Mr. Walton is a 66 yo M with ESRD who does not have benefits to qualify for an outpatient dialysis unit and therefore does not get regular dialysis, who presents to ED today for dialysis. He was last dialyzed on 11/28 here. He denies having any chest pain, dyspnea, N/V, abdominal pain, swelling. He overall is feeling well, has no complaints. His K is 6.5. History Information - Allergies/Home Medication List Allergies/Adverse Reactions: No Known Allergies Allergy (Verified 12/03/16 13:11) Home Medications: RX: Atorvastatin Calcium [Lipitor 40 mg (*)] 80 mg PO DAILY 10/30/16 [Last Taken 11/27/16] RX: Hydralazine HCl 25 mg PO DAILY@1200 10/30/16 [Last Taken 11/27/16] RX: Metoprolol Succinate Xr [Toprol Xl 100 mg (*)] 100 mg PO DAILY 10/30/16 [ Last Taken 11/27/16] RX: Multivitamins [Multivitamin (*)] 1 each PO DAILY 10/30/16 [Last Taken ] RX: Nitroglycerin [Nitrostat 0.4 mg (*)] 0.4 mg SL AD PRN 10/30/16 [Last Taken Unknown] RX: Sodium Bicarbonate [Na Bicarb] 1,300 mg PO BID 10/30/16 [Last Taken 09:00 1300MG] RX: Vit B Cmplx 3/Folic AC/C/Biot [Ev-Peyton Rx Tablet] 1 each PO DAILY [Last Taken 11/27/16] RX: amLODIPine BESYLATE [Norvasc 10 mg (*)] 10 mg PO DAILY 10/30/16 [Last Taken 11/27/16] RX: Cholecalciferol Vit D3 [Vitamin D3 (*)] 1,000 units PO DAILY 11/27/16 [Last Taken 11/27/16] I have personally reviewed and updated: medical history - Past Medical History coronary artery disease (Known coronary disease but has not undergone interventional cardiac catheterization), ESRD, GI bleed, GERD (Anemia of chronic disease, H/O UGIB x2 (first on Plavix +ASA, then on ASA alone), esophagitis), hypertension Additional medical history: Anemia of chronic kidney disease; upper GI bleed in the setting of anti-platelet medications, has occurred while on single and double agent therapy; 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; esophagitis - Surgical History Additional surgical history: R IJ tunneled catheter - Family History Additional family history: Mother with CVA and HTN - Social History Smoking Status: Former smoker Additional social history: Continues to work on non-HD days Review of Systems ROS: 10pt was reviewed & negative except for what was stated in HPI & below Physical Exam Temp Pulse Resp BP Pulse Ox 36.3 C 54 L 16 145/69 H 95 12/03/16 17:21 12/03/16 17:21 12/03/16 17:21 12/03/16 17:21 12/03/16 17:21 Constitutional: no apparent distress, appears nourished, not in pain Eyes: PERRL, EOMI Ears, Nose, Mouth, Throat: moist mucous membranes, hearing normal Cardiovascular: regular rate and rhythym, pulses symmetric bilaterally, edema ( trace BLE) Peripheral Pulses: 2+: dorsalis-pedis (R), dorsalis-pedis (L) Respiratory: no respiratory distress, no rales or rhonchi, clear to auscultation Gastrointestinal: normoactive bowel sounds, soft, non-tender abdomen Skin: warm Musculoskeletal: no muscle tenderness, normal joint ROM Neurologic: AAOx3, CN II-XII Intact, No asterixes Psychiatric: interacting appropriately, not anxious, not encephalopathic, thought process linear Lab Data & Imaging Review 12/03/16 13:55 12/03/16 16:44 WBC 7.40 10^3/uL (3.80-9.50) 12/03/16 13:55 RBC 2.23 10^6/uL (4.40-6.38) L 12/03/16 13:55 Hgb 7.2 g/dL (13.7-17.5) L 12/03/16 13:55 Hct 22.3 % (40.0-51.0) L 12/03/16 13:55 MCV 100.0 fL (81.5-99.8) H 12/03/16 13:55 MCH 32.3 pg (27.9-34.1) 12/03/16 13:55 MCHC 32.3 g/dL (32.4-36.7) L 12/03/16 13:55 RDW 15.7 % (11.5-15.2) H 12/03/16 13:55 Plt Count 150 10^3/uL (150-400) 12/03/16 13:55 MPV 11.1 fL (8.7-11.7) 12/03/16 13:55 Neut % (Auto) 67.9 % (39.3-74.2) 12/03/16 13:55 Lymph % (Auto) 13.2 % (15.0-45.0) L 12/03/16 13:55 [place] % (Auto) 6.5 % (4.5-13.0) 12/03/16 13:55 Eos % (Auto) 11.2 % (0.6-7.6) H 12/03/16 13:55 Baso % (Auto) 0.8 % (0.3-1.7) 12/03/16 13:55 Nucleat RBC Rel Count 0.3 % (0.0-0.2) H 12/03/16 13:55 Absolute Neuts (auto) 5.02 10^3/uL (1.70-6.50) 12/03/16 13:55 Absolute Lymphs (auto) 0.98 10^3/uL (1.00-3.00) L 12/03/16 13:55 Absolute Monos (auto) 0.48 10^3/uL (0.30-0.80) 12/03/16 13:55 Absolute Eos (auto) 0.83 10^3/uL (0.03-0.40) H 12/03/16 13:55 Absolute Basos (auto) 0.06 10^3/uL (0.02-0.10) 12/03/16 13:55 Absolute Nucleated RBC 0.02 10^3/uL (0-0.01) H 12/03/16 13:55 Immature Gran % 0.4 % (0.0-1.1) 12/03/16 13:55 Immature Gran # 0.03 10^3/uL (0.00-0.10) 12/03/16 13:55 Sodium 143 mEq/L (134-144) 12/03/16 16:44 Potassium 6.2 mEq/L (3.5-5.2) H 12/03/16 16:44 Chloride 104 mEq/L (97-110) 12/03/16 16:44 Carbon Dioxide 21 mEq/l (22-31) L 12/03/16 16:44 Anion Gap 18 mEq/L (8-16) H 12/03/16 16:44 BUN 131 mg/dL (7-23) H* 12/03/16 16:44 Creatinine 13.7 mg/dL (0.7-1.3) H* 12/03/16 16:44 Estimated GFR 4 12/03/16 16:44 Glucose 82 mg/dL (70-100) 12/03/16 16:44 Calcium 9.1 mg/dL (8.5-10.4) 12/03/16 16:44 Assessment & Plan Assessment: Assessment/Plan: ESRD: does not have a regular outpatient dialysis unit due to lack of benefits. - Will do HD today for hyperkalemia. - Will plan for HD again tomorrow. Hyperkalemia: K 6.5, will modulate on HD. Anemia: will give epo on HD. Thank you for the interesting consult. Nephrology will continue to follow, please call if you have any additional questions or concerns.
[2016-12-03] MEDS ORDERED: EUCERIN LOTION TP PRN (20:38)
[2016-12-03] MEDS ORDERED: NITROGLYCERIN 0.4 MG BTL SL PRN (21:36)
[2016-12-04 04:34] LABS: ANION GAP 14 mEq/L (8-16); CALCIUM 8.6 mg/dL (8.5-10.4); CARBON DIOXIDE 26 mEq/l (22-31); CHLORIDE 100 mEq/L (97-110); GLOMERULAR FILTRATION RATE 6; GLUCOSE 88 mg/dL (70-100); POTASSIUM 5.3 mEq/L (3.5-5.2); SODIUM 140 mEq/L (134-144)
[2016-12-04 04:35] LABS: CREATININE 9.3 mg/dL (0.7-1.3)
[2016-12-04 08:20] VITALS: PULSE 54; O2SAT 95
[2016-12-04] MEDS ORDERED: ATORVASTATIN CALCIUM 40 MG TAB PO SCH (09:00)
[2016-12-04] MEDS ORDERED: PANTOPRAZOLE SODIUM 40 MG TAB PO SCH (09:00)
[2016-12-04] MEDS ORDERED: CHOLECALCIFEROL VIT D3 1,000 UNITS TAB PO SCH (09:00)
[2016-12-04] MEDS ORDERED: NEPHROVITE FOLIC ACID/VIT B&C 1 TAB PO SCH (09:00)
[2016-12-04] MEDS ORDERED: SODIUM BICARBONATE 650 MG TAB PO SCH (09:00)
[2016-12-04] MEDS ORDERED: METOPROLOL SUCCINATE XR 100 MG TAB PO SCH (09:00)
--- NOTE | 2016-12-04 09:42 | SOAPPROG ---
JACQUELINE Progress Note Assessment/Plan: Assessment: 1. ESRD without benefits Second HD today, then DC. Discussed care strategies with Dr. Conway. At this point, would consult with Dr. Betancur relating to fistula placement, which could be done during a future admission. 2. HTN Continue meds, UF on HD today. 3. Anemia Low hg, but no indication for transfusion Plan: 12/04/16 09:39 12/04/16 09:40 Subjective: Doing pretty well Objective: Vital Signs Temp Pulse Resp BP Pulse Ox 37.1 C 54 L 14 171/72 H 95 12/04/16 08:17 12/04/16 08:17 12/04/16 08:17 12/04/16 08:17 12/04/16 08:17 Laboratory Results 12/04/16 04:00 12/03/16 12/04/16 12/05/16 05:59 05:59 05:59 Intake Total 250 Balance 250 Physical Exam - Physical Exam General Appearance: no apparent distress Respiratory: lungs clear Cardiac/Chest: regular rate, rhythm Abdomen: soft Extremities: pedal edema Neuro/Psych: oriented x 3 ICD10 Worksheet Patient Problems: Problems Problem Status Onset Hyperkalemia Acute Uremia Acute Abdominal pain Acute Acute renal failure Acute Acute upper GI bleed Acute Anemia Acute Anemia associated with acute blood loss Acute Chronic renal failure Acute Diarrhea Acute End stage renal disease Acute Hyperkalemia Acute Hyperkalemia Acute Hyperkalemia Acute Hyperkalemia Acute Hyperkalemia Acute Hyperkalemia Acute Hyperkalemia Acute Hypertension Acute Hypocalcemia Acute Kidney failure Acute Kidney failure Acute Kidney failure Acute Metabolic acidosis Acute Renal failure Acute Shingles (herpes zoster) polyneuropathy Acute Uremia Acute
[2016-12-04] MEDS: CALCIUM CARBONATE 500 MG CHEWABLE TAB PO SCH ×3 (09:44→18:22)
--- NOTE | 2016-12-04 13:52 | SOAPPROG ---
SOEDY Progress Note Assessment/Plan: Assessment: discussed placement of AVF in this rt handed pt/ risks and options fully discussed/ pt hesitant for surgery Plan:vein mapping 12/04/16 13:50 Objective: Vital Signs Temp Pulse Resp BP Pulse Ox 37.1 C 54 L 14 171/72 H 95 12/04/16 08:17 12/04/16 08:17 12/04/16 08:17 12/04/16 08:17 12/04/16 08:17 Laboratory Results 12/04/16 04:00 12/03/16 12/04/16 12/05/16 05:59 05:59 05:59 Intake Total 250 Balance 250 ICD10 Worksheet Patient Problems: Problems Problem Status Onset Hyperkalemia Acute Uremia Acute Abdominal pain Acute Acute renal failure Acute Acute upper GI bleed Acute Anemia Acute Anemia associated with acute blood loss Acute Chronic renal failure Acute Diarrhea Acute End stage renal disease Acute Hyperkalemia Acute Hyperkalemia Acute Hyperkalemia Acute Hyperkalemia Acute Hyperkalemia Acute Hyperkalemia Acute Hyperkalemia Acute Hypertension Acute Hypocalcemia Acute Kidney failure Acute Kidney failure Acute Kidney failure Acute Metabolic acidosis Acute Renal failure Acute Shingles (herpes zoster) polyneuropathy Acute Uremia Acute
[2016-12-04 17:14] VITALS: BP 147/69; RESP 12; TEMP 98.5
[2016-12-04] MEDS ORDERED: HEPARIN 50,000 UNIT/10 ML VIAL ONE (17:16)
--- NOTE | 2016-12-04 18:09 | GDS ---
[f rep st] DISCHARGE SUMMARY DIAGNOSES: 1. End-stage renal disease, with needs for emergent dialysis. 2. Hyperkalemia. 3. Non-anion gap acidosis. HOSPITAL COURSE: A 66-year-old man who presented with needs for emergent dialysis. He was admitted , and received 2 rounds of dialysis. He felt physically better after his first round of dialysis. Discussed with Dr. Negro, as well as Dr. Betancur. Dr. Betancur is willing to do an AV fistula placem ent. This was discussed with the patient, and vein mapping is being done prior to discharge. He is unable to stay in the hospital to have this done. Would recommend consulting Dr. Betancur as early as possible on the next admission to plan a fistula placement. Currently being dialyzed out of a tunn eled dialysis catheter. /[id number]/MODL
[2016-12-05 14:10] LABS: HEPATITIS Bs Ab QUANT <5.0 mIU/mL
== END 2016-12-04 18:58 | disposition home or self-care (01) ==
LOC: F2W 17:09
PROVIDERS: ADMIT Family Medicine; ATTEND Family Medicine
PROC: 5A1D60Z (ICD-10-PCS; principal; 2016-12-03)
DX: E87.5 Hyperkalemia (principal); N18.6 End stage renal disease; E87.2 Acidosis; D63.1 Anemia in chronic kidney disease; R21 Rash and other nonspecific skin eruption
CPT/HCPCS: 86704-90; 96365; G0378; J0610; J1644; J1815

== ENCOUNTER 2016-12-10 11:02 | Observation (INO) | payer OTHER ==
--- NOTE | 2016-12-10 12:05 | EDPHY ---
H & P Time Seen by Provider: 12/10/16 12:05 HPI/ROS: CHIEF COMPLAINT: Diarrhea and need for dialysis HISTORY OF PRESENT ILLNESS: Last dialysis 6 days ago. End-stage renal disease without access outpatient dialysis. Patient presents with diarrhea which is usually the symptoms he gets when he needs dialysis and is often hyperkalemic. REVIEW OF SYSTEMS: Eye: no change in vision ENT: no sore throat Cardiac: no chest pain or syncope Pulmonary: no cough or SOB Abdomen: no vomiting, diarrhea, abdominal pain Musculoskeletal: no back pain Skin: Right ankle skin rash unchanged from previous. Neuro: no headache Constitutional: no fever : no urinary symptoms A comprehensive 10 point review of systems is otherwise negative aside from elements mentioned in the history of present illness. PAST MEDICAL HISTORY: End-stage renal disease on dialysis. Coronary artery disease, GI bleed, anemia, hypertension, right subclavian dialysis catheter Social history: Nonsmoker, no alcohol. General Appearance: Alert and conversant, cooperative. Eyes: No scleral icterus. ENT, Mouth: Normal mucous membranes. Respiratory: Normal respiratory effort, breath sounds equal, lungs are clear to auscultation. Cardiovascular: Regular rate and rhythm. Gastrointestinal: Abdomen is soft and non tender. Neurological: Alert and oriented x3. Normally conversant. Face symmetric, normal movement and sensation in all extremities. Skin: Scaling dry rash on the right ankle without redness or tenderness or pus or lymphangitis. Musculoskeletal: Bilateral 1+ pedal edema. Psychiatric: Not agitated. Emergency Department course/MDM: 1229: I-STAT potassium is 6.3. Sodium bicarbonate, insulin and glucose, IV calcium. These were initially ordered but in discussion with pharmacy there is critical short it is only insulin and glucose or given. Admission to hospitalist, Nephrology to dialyze. Discussed with Dr. Wolfe from Nephrology, who will arrange dialysis today. Smoking Status: Former smoker Constitutional: Initial Vital Signs Temperature (C) 36.4 C 12/10/16 11:11 Heart Rate 58 L 12/10/16 11:11 Respiratory Rate 16 12/10/16 11:11 Blood Pressure 157/78 H 12/10/16 11:11 O2 Sat (%) 99 12/10/16 11:11 O2 Delivery Mode Room Air Allergies/Adverse Reactions: No Known Allergies Allergy (Verified 12/03/16 13:11) Home Medications: Medication Instructions Recorded Atorvastatin Calcium [Lipitor 40 80 mg PO DAILY 10/30/16 mg (*)] Metoprolol Succinate Xr [Toprol Xl 100 mg PO DAILY 10/30/16 100 mg (*)] Nitroglycerin [Nitrostat 0.4 mg 0.4 mg SL AD PRN 10/30/16 (*)] Sodium Bicarbonate [Na Bicarb] 1,300 mg PO DAILY 10/30/16 Vit B Cmplx 3/Folic AC/C/Biot 1 each PO DAILY 10/30/16 [Ev-Peyton Rx Tablet] amLODIPine BESYLATE [Norvasc 10 mg 10 mg PO DAILY 10/30/16 (*)] Calcium Carbonate [Tums 500MG (*)] 500 mg PO TIDMEAL #90 tab.chew 11/01/16 Cholecalciferol Vit D3 [Vitamin D3 1,000 units PO DAILY 11/27/16 (*)] Hydralazine HCl 50 mg PO DAILY 12/03/16 Pantoprazole Sodium [Protonix 40mg 40 mg PO DAILY 12/03/16 (*)] Medical Decision Making - Diagnostics EKG Interpretation: 12-lead EKG interpreted by me; official reading is in trace master. My interpretation is sinus bradycardia rate of 48 with a QR interval of 94. Consult/Admit Bed Type: [place] [address] Critical Care Time: Critical care time spent by me, Dr. Teran, exclusively with the care of this patient was 30 minutes, exclusive of PA or HAND CUTTER APPRENTICE time and exclusive of separate procedures. The organ system at risk was metabolic, hyperkalemia and I ordered IV insulin and glucose, discussion with hospitalist and hvac maintenance technician to stabilize the patient and prevent worsening of the patient's condition. - Data Points Laboratory Results: Laboratory Results 12/10/16 12:21 12/10/16 12:21 12/10/16 12/10/16 12/10/16 12:21 12:21 12:18 WBC 5.91 10^3/uL 10^3/uL (3.80-9.50) RBC 2.67 10^6/uL L 10^6/uL (4.40-6.38) Hgb 8.5 g/dL L g/dL (13.7-17.5) POC Hgb 9.2 gm/dL L gm/dL (13.7-17.5) Hct 26.9 % L % (40.0-51.0) POC Hct 27 % L % (40-51) MCV 100.7 fL H fL (81.5-99.8) MCH 31.8 pg pg (27.9-34.1) MCHC 31.6 g/dL L g/dL (32.4-36.7) RDW 15.3 % H % (11.5-15.2) Plt Count 129 10^3/uL L 10^3/uL (150-400) MPV 11.3 fL fL (8.7-11.7) Neut % (Auto) 65.0 % % (39.3-74.2) Lymph % (Auto) 16.2 % % (15.0-45.0) [place] % (Auto) 5.6 % % (4.5-13.0) Eos % (Auto) 11.5 % H % (0.6-7.6) Baso % (Auto) 1.4 % % (0.3-1.7) Nucleat RBC Rel Count 0.0 % % (0.0-0.2) Absolute Neuts (auto) 3.84 10^3/uL 10^3/uL (1.70-6.50) Absolute Lymphs (auto) 0.96 10^3/uL L 10^3/uL (1.00-3.00) Absolute Monos (auto) 0.33 10^3/uL 10^3/uL (0.30-0.80) Absolute Eos (auto) 0.68 10^3/uL H 10^3/uL (0.03-0.40) Absolute Basos (auto) 0.08 10^3/uL 10^3/uL (0.02-0.10) Absolute Nucleated RBC 0.00 10^3/uL 10^3/uL (0-0.01) Immature Gran % 0.3 % % (0.0-1.1) Immature Gran # 0.02 10^3/uL 10^3/uL (0.00-0.10) POC Sodium 141 mEq/L mEq/L (134-144) Sodium 144 mEq/L mEq/L (134-144) POC Potassium 6.3 mEq/L H* mEq/L (3.3-5.0) Potassium 6.6 mEq/L H* mEq/L (3.5-5.2) POC Chloride 105 mEq/L mEq/L (97-110) Chloride 103 mEq/L mEq/L (97-110) Carbon Dioxide 18 mEq/l L mEq/l (22-31) Anion Gap 23 mEq/L H mEq/L (8-16) POC BUN 134 mg/dL H* mg/dL (7-23) BUN 123 mg/dL H* mg/dL (7-23) Creatinine 15.8 mg/dL H* mg/dL (0.7-1.3) POC Creatinine 17.2 mg/dL H* mg/dL (0.7-1.3) Estimated GFR 3 Glucose 92 mg/dL mg/dL (70-100) POC Glucose 95 mg/dL mg/dL (70-100) Calcium 8.7 mg/dL mg/dL (8.5-10.4) Total Bilirubin 0.8 mg/dL mg/dL (0.1-1.4) AST 19 IU/L IU/L (17-59) ALT 31 IU/L IU/L (21-72) Alkaline Phosphatase 156 IU/L H IU/L (38-126) Total Protein 7.2 g/dL g/dL (6.3-8.2) Albumin 5.1 g/dL H g/dL (3.5-5.0) Medications Given: Discontinued Medications Dextrose (D10w) 250 mls @ 0 mls/hr IV ONCE ONE PRN Reason: As Directed Stop: 12/10/16 13:01 Last Admin: 12/10/16 13:30 Dose: 250 mls Insulin Human Regular (Humulin R) 10 unit IVP EDNOW ONE Stop: 12/10/16 12:30 Last Admin: 12/10/16 13:30 Dose: 10 units Point of Care Test Results: 12/10/16 12:18 POC Sodium 141 POC Potassium 6.3 H* POC Chloride 105 POC BUN 134 H* POC Creatinine 17.2 H* POC Glucose 95 Departure - Departure Disposition: [facility] Inpatient Acute Clinical Impression: End stage renal disease, Hyperkalemia Condition: Fair
[2016-12-10] MEDS ORDERED: SODIUM BICARBONATE 50 MEQ/50 ML SYR IVP ONE (12:29)
[2016-12-10] MEDS ORDERED: D50W 25 GM/50 ML SYR IVP ONE (12:29)
[2016-12-10] MEDS ORDERED: INSULIN REGULAR HUMAN 100 UNIT/ML IVP ONE (12:29)
[2016-12-10] MEDS ORDERED: CALCIUM GLUCONATE 50 ML IV ONE (12:29)
[2016-12-10 12:42] LABS: % IMMATURE GRANULYOCYTES 0.3 % (0.0-1.1); ABSOLUTE IMMATURE GRANULOCYTES 0.02 10^3/uL (0.00-0.10); ADD DIFF? NO; ADD MORPH? NO; ADD SCAN? NO; ATYPICAL LYMPHOCYTE FLAG 0 (0-99); FRAGMENT RBC FLAG 0 (0-99); HEMATOCRIT 26.9 % (40.0-51.0); HEMOGLOBIN 8.5 g/dL (13.7-17.5); LEFT SHIFT FLG 0 (0-99); LIPEMIA HEMOLYSIS FLAG 80 (0-99); MEAN CELL HEMOGLOBIN 31.8 pg (27.9-34.1); MEAN CELL HEMOGLOBIN CONCENTR. 31.6 g/dL (32.4-36.7); MEAN CELL VOLUME 100.7 fL (81.5-99.8); MEAN PLATELET VOLUME 11.3 fL (8.7-11.7); PLATELET CLUMPS FLAG 0 (0-99); PLATELET COUNT 129 10^3/uL (150-400); RED BLOOD CELL COUNT 2.67 10^6/uL (4.40-6.38); RED CELL DISTRIBUTION WIDTH 15.3 % (11.5-15.2)
--- NOTE | 2016-12-10 12:42 | CPEKG ---
Heart Rate: 48 RR Interval: 1250 P-R Interval: 188 QRSD Interval: 94 QT Interval: 484 QTC Interval: 433 P [place]: 59 QRS [place]: 69 T Wave [place]: 65 EKG Severity - OTHERWISE NORMAL ECG - EKG Impression: SINUS BRADYCARDIA Electronically Signed By: Esteban Teran 10-Dec-2016 14:36:41
[2016-12-10 12:47] LABS: ALANINE AMINOTRANSFERASE 31 IU/L (21-72); ALBUMIN 5.1 g/dL (3.5-5.0); ALKALINE PHOSPHATASE 156 IU/L (38-126); ANION GAP 23 mEq/L (8-16); ASPARTATE AMINOTRANSFERASE 19 IU/L (17-59); BILIRUBIN,TOTAL 0.8 mg/dL (0.1-1.4); CALCIUM 8.7 mg/dL (8.5-10.4); CARBON DIOXIDE 18 mEq/l (22-31); CHLORIDE 103 mEq/L (97-110); GLUCOSE 92 mg/dL (70-100); SODIUM 144 mEq/L (134-144); TOTAL PROTEIN 7.2 g/dL (6.3-8.2)
[2016-12-10] MEDS ORDERED: D10W 250 ML IV ONE (13:00)
[2016-12-10] MEDS ORDERED: INSULIN REGULAR HUMAN 100 UNIT/ML ONE (13:07)
[2016-12-10] MEDS ORDERED: ZOLPIDEM TARTRATE 5 MG TAB PO PRN (13:18)
[2016-12-10] MEDS ORDERED: ACETAMINOPHEN 325 MG TAB PO PRN (13:18)
[2016-12-10] MEDS ORDERED: ONDANSETRON 4 MG/2 ML VIAL IVP PRN (13:18)
--- NOTE | 2016-12-10 13:22 | PDGENHP ---
History and Physical History and Physical: HISTORY AND PHYSICAL CC:Loose stools, needing dialysis HISTORY: This patient is a 66-year-old man with end-stage renal disease on chronic dialysis. However he is unable to receive dialysis at the dialysis unit in the outpatient setting due to no workable insurance coverage. The patient comes in generally once a week here and we dialyze him here. The hospital is the only place he can have his dialysis. He was last treated here on December 03. He comes in at this time with a complaint of some loose stools which he often has when he is several days or more out from dialysis, probably from gut edema. There is no abdominal pain, fevers or bleeding and he is eating well with no nausea. There are no other symptoms beyond his usual expected leg swelling, which is gradually getting better now that he is dialyzing more regularly. No shortness of breath or chest pain no palpitations. He has no trouble with his dialysis catheter. There are no fever symptoms. 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 Does not use tobacco or significant alcohol or street drugs MEDICATIONS: The patients list has been reconciled by our clinical pharmacist in the EMR. I have reviewed the list and ordered appropriate medicines. PHYSICAL EXAMINATION: Vital Signs: mild systolic hypertension otherwise stable without fever Segmental Wall Installer: sinus rhythm Examination: General: alert, oriented, good mentation, relaxed Skin: warm, dry, good color, no rash His IJ catheter is in normal position no signs of infection HEENT: normal Neck: no mass or jvd Resps: relaxed Lungs: clear breath sounds Heart: regular, no murmur Abdomen: soft, nondistended, nontender, +BS, no mass Upper Extremities: normal Lower Extremities: there is bilateral pitting edema from the feet to the knees without evidence of cellulitis or other infectious process, warm No Bleeding or bruising Neurologic: normal speech/language, normal rooming house inspector, no focal weakness IV site: looks normal LABORATORY DATA: Potassium 6.5 other electrolytes good He has baseline anemia at 7.5 and baseline platelets in the 120,000 range 12 LEAD EKG: sinus rhythm without abnormalities of the QRS, T-waves or ST segments ASSESSMENT: # End-stage renal disease requiring dialysis # Hyperkalemia, mild for him without EKG changes # Loose stools likely due to bowel edema PLANS: The patient will be brought in on observation status I have notified Dr. Wolfe of the nephrology service and she will get the dialysis team ready to provide his dialysis
[2016-12-10 13:31] LABS: CREATININE 15.8 mg/dL (0.7-1.3); GLOMERULAR FILTRATION RATE 3
[2016-12-10 13:34] LABS: POTASSIUM 6.6 mEq/L (3.5-5.2)
--- NOTE | 2016-12-10 16:28 | PDGENHP ---
History and Physical - Chief Complaint ESRD - History of Present Illness Mr. Arora is a 66 yo M with ESRD who does not have an outpatient dialysis unit as he lacks benefits who presents to ED today for dialysis. He was last dialyzed 12/04/16. He reports having loose stools for a few days, which happens the longer he goes without HD. He has some swelling in his legs, no dypsnea or chest pain. K noted to be up to 6.6. History Information - Allergies/Home Medication List Allergies/Adverse Reactions: No Known Allergies Allergy (Verified 12/03/16 13:11) Home Medications: Atorvastatin Calcium [Lipitor 40 mg (*)] 80 mg PO DAILY 10/30/16 [Last Taken 11/21] Metoprolol Succinate Xr [Toprol Xl 100 mg (*)] 100 mg PO DAILY 10/30/16 [Last Taken 12/10/16] Nitroglycerin [Nitrostat 0.4 mg (*)] 0.4 mg SL AD PRN 10/30/16 [Last Taken Unknown] Sodium Bicarbonate [Na Bicarb] 1,300 mg PO DAILY 10/30/16 [Last Taken 12/03/16] Vit B Cmplx 3/Folic AC/C/Biot [Ev-Peyton Rx Tablet] 1 each PO DAILY 10/30/16 [ Last Taken 12/03/16] amLODIPine BESYLATE [Norvasc 10 mg (*)] 10 mg PO DAILY 10/30/16 [Last Taken 11/21] Cholecalciferol Vit D3 [Vitamin D3 (*)] 1,000 units PO DAILY 11/27/16 [Last Taken 12/03/16] Hydralazine HCl 50 mg PO DAILY 12/03/16 [Last Taken 12/10/16] Pantoprazole Sodium [Protonix 40mg (*)] 40 mg PO DAILY 12/03/16 [Last Taken 11/21] I have personally reviewed and updated: medical history - Past Medical History coronary artery disease (Known coronary disease but has not undergone interventional cardiac catheterization), ESRD, GI bleed, GERD (Anemia of chronic disease, H/O UGIB x2 (first on Plavix +ASA, then on ASA alone), esophagitis), hypertension Additional medical history: Anemia of chronic kidney disease; upper GI bleed in the setting of anti-platelet medications, has occurred while on single and double agent therapy; 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; esophagitis - Surgical History Additional surgical history: R IJ tunneled catheter - Family History Additional family history: Mother with CVA and HTN - Social History Smoking Status: Former smoker Additional social history: Continues to work on non-HD days Review of Systems ROS: 10pt was reviewed & negative except for what was stated in HPI & below Physical Exam Temp Pulse Resp BP Pulse Ox 36.4 C 58 L 16 157/78 H 99 12/10/16 11:11 12/10/16 11:11 12/10/16 11:11 12/10/16 11:11 12/10/16 11:11 Constitutional: no apparent distress, appears nourished, not in pain Eyes: PERRL, EOMI Ears, Nose, Mouth, Throat: moist mucous membranes, hearing normal Cardiovascular: regular rate and rhythym, edema (trace BLE) Peripheral Pulses: 3+: dorsalis-pedis (R), dorsalis-pedis (L) Respiratory: no respiratory distress, no rales or rhonchi, clear to auscultation Gastrointestinal: normoactive bowel sounds, soft, non-tender abdomen Skin: warm, No rash Musculoskeletal: no muscle tenderness, normal joint ROM, no joint effusions Neurologic: AAOx3, CN II-XII Intact Psychiatric: interacting appropriately, not anxious, not encephalopathic Lab Data & Imaging Review 12/10/16 12:21 12/10/16 12:21 WBC 5.91 10^3/uL (3.80-9.50) 12/10/16 12:21 RBC 2.67 10^6/uL (4.40-6.38) L 12/10/16 12:21 Hgb 8.5 g/dL (13.7-17.5) L 12/10/16 12:21 POC Hgb 9.2 gm/dL (13.7-17.5) L 12/10/16 12:18 Hct 26.9 % (40.0-51.0) L 12/10/16 12:21 POC Hct 27 % (40-51) L 12/10/16 12:18 MCV 100.7 fL (81.5-99.8) H 12/10/16 12:21 MCH 31.8 pg (27.9-34.1) 12/10/16 12:21 MCHC 31.6 g/dL (32.4-36.7) L 12/10/16 12:21 RDW 15.3 % (11.5-15.2) H 12/10/16 12:21 Plt Count 129 10^3/uL (150-400) L 12/10/16 12:21 MPV 11.3 fL (8.7-11.7) 12/10/16 12:21 Neut % (Auto) 65.0 % (39.3-74.2) 12/10/16 12:21 Lymph % (Auto) 16.2 % (15.0-45.0) 12/10/16 12:21 [place] % (Auto) 5.6 % (4.5-13.0) 12/10/16 12:21 Eos % (Auto) 11.5 % (0.6-7.6) H 12/10/16 12:21 Baso % (Auto) 1.4 % (0.3-1.7) 12/10/16 12:21 Nucleat RBC Rel Count 0.0 % (0.0-0.2) 12/10/16 12:21 Absolute Neuts (auto) 3.84 10^3/uL (1.70-6.50) 12/10/16 12:21 Absolute Lymphs (auto) 0.96 10^3/uL (1.00-3.00) L 12/10/16 12:21 Absolute Monos (auto) 0.33 10^3/uL (0.30-0.80) 12/10/16 12:21 Absolute Eos (auto) 0.68 10^3/uL (0.03-0.40) H 12/10/16 12:21 Absolute Basos (auto) 0.08 10^3/uL (0.02-0.10) 12/10/16 12:21 Absolute Nucleated RBC 0.00 10^3/uL (0-0.01) 12/10/16 12:21 Immature Gran % 0.3 % (0.0-1.1) 12/10/16 12:21 Immature Gran # 0.02 10^3/uL (0.00-0.10) 12/10/16 12:21 POC Sodium 141 mEq/L (134-144) 12/10/16 12:18 Sodium 144 mEq/L (134-144) 12/10/16 12:21 POC Potassium 6.3 mEq/L (3.3-5.0) H* 12/10/16 12:18 Potassium 6.6 mEq/L (3.5-5.2) H* 12/10/16 12:21 POC Chloride 105 mEq/L (97-110) 12/10/16 12:18 Chloride 103 mEq/L (97-110) 12/10/16 12:21 Carbon Dioxide 18 mEq/l (22-31) L 12/10/16 12:21 Anion Gap 23 mEq/L (8-16) H 12/10/16 12:21 POC BUN 134 mg/dL (7-23) H* 12/10/16 12:18 BUN 123 mg/dL (7-23) H* 12/10/16 12:21 Creatinine 15.8 mg/dL (0.7-1.3) H* 12/10/16 12:21 POC Creatinine 17.2 mg/dL (0.7-1.3) H* 12/10/16 12:18 Estimated GFR 3 12/10/16 12:21 Glucose 92 mg/dL (70-100) 12/10/16 12:21 POC Glucose 95 mg/dL (70-100) 12/10/16 12:18 Calcium 8.7 mg/dL (8.5-10.4) 12/10/16 12:21 Total Bilirubin 0.8 mg/dL (0.1-1.4) 12/10/16 12:21 AST 19 IU/L (17-59) 12/10/16 12:21 ALT 31 IU/L (21-72) 12/10/16 12:21 Alkaline Phosphatase 156 IU/L (38-126) H 12/10/16 12:21 Total Protein 7.2 g/dL (6.3-8.2) 12/10/16 12:21 Albumin 5.1 g/dL (3.5-5.0) H 12/10/16 12:21 Hep Bs Antigen NEGATIVE (NEGATIVE) 12/10/16 12:21 Assessment & Plan Assessment: Assessment/plan: ESRD: pt lacks benefits to have regular outpatient dialysis. - Will do HD today. - Will do HD again tomorrow, likely can be discharged afterward. - Pt to return to ED for emergent symptoms (dyspnea, hypoxia, gross volume overload, hyperkalemia). Hyperkalemia: K 6.6, will modulate with HD. Metabolic acidosis: will modulate with HD. Thank you for the interesting consult. Nephrology will continue to follow, please call with any additional questions or concerns.
[2016-12-10] MEDS ORDERED: HEPARIN 50,000 UNIT/10 ML VIAL ONE (19:44)
[2016-12-11 04:52] VITALS: RESP 16
[2016-12-11 04:52] LABS: ANION GAP 14 mEq/L (8-16); CARBON DIOXIDE 24 mEq/l (22-31); CHLORIDE 101 mEq/L (97-110); GLOMERULAR FILTRATION RATE 6; GLUCOSE 88 mg/dL (70-100); MAGNESIUM 1.6 mg/dL (1.6-2.3); POTASSIUM 5.4 mEq/L (3.5-5.2); SODIUM 139 mEq/L (134-144)
[2016-12-11 04:55] LABS: CREATININE 9.1 mg/dL (0.7-1.3)
[2016-12-11] MEDS ORDERED: EPOETIN ALFA 10,000 UNIT/ML VIAL SC ONE (08:15)
[2016-12-11] MEDS ORDERED: EPOETIN ALFA 10,000 UNIT/ML VIAL IVP ONE (08:30)
--- NOTE | 2016-12-11 08:39 | HOSPPROG ---
Hospitalist Progress Note Assessment/Plan: #ESRD: without access to outpatient HD -HD again today #Hyperkalemia #Metabolic acidosis #Anemia of renal dz: no indication for transfusion #Diet: renal #Disp: DC today Subjective: no CP or SOB. Does not need refills on meds Objective: Vital Signs Temp Pulse Resp BP Pulse Ox 36.9 C 54 L 16 157/72 H 95 12/11/16 04:49 12/11/16 04:49 12/11/16 04:49 12/11/16 04:49 12/11/16 04:49 Laboratory Results 12/11/16 04:20 12/10/16 12/11/16 12/12/16 05:59 05:59 05:59 Output Total 150 Balance -150 - Physical Exam Constitutional: no apparent distress Eyes: PERRL Ears, Nose, Mouth, Throat: moist mucous membranes, hearing normal Cardiovascular: regular rate and rhythym, no murmur, rub, or gallop, edema (none ) Respiratory: no respiratory distress, no rales or rhonchi Gastrointestinal: normoactive bowel sounds, soft, non-tender abdomen Genitourinary: no bladder fullness Skin: warm Musculoskeletal: full muscle strength, other (RU chest HD catheter C/D/I) Neurologic: AAOx3 Psychiatric: interacting appropriately Lymph, Heme, Immunologic: no cervical LAD ICD10 Worksheet Patient Problems: Problems Problem Status Onset End stage renal disease Acute Hyperkalemia Acute Abdominal pain Acute Acute renal failure Acute Acute upper GI bleed Acute Anemia Acute Anemia associated with acute blood loss Acute Chronic renal failure Acute Diarrhea Acute Hyperkalemia Acute Hyperkalemia Acute Hyperkalemia Acute Hyperkalemia Acute Hyperkalemia Acute Hyperkalemia Acute Hyperkalemia Acute Hypertension Acute Hypocalcemia Acute Kidney failure Acute Kidney failure Acute Kidney failure Acute Metabolic acidosis Acute Renal failure Acute Shingles (herpes zoster) polyneuropathy Acute Uremia Acute Uremia Acute
--- NOTE | 2016-12-11 09:44 | SOAPPROG ---
SOAP Progress Note Assessment/Plan: Assessment/Plan: ESRD: pt without an outpatient dialysis unit due to lack of benefits. - HD done yesterday. - HD again today, likely can be discharged afterward. - Pt to return to ER prn emergent symptoms for dialysis, including dyspnea, hypoxia, gross hypervolemia, hyperkalemia. Hyperkalemia: improved with HD, will modulate further with HD. Anemia: will give epo today. Subjective: No acute events overnight. Pt had HD yesterday with no issues, felt fine afterward. He is on HD this am with no problems, notes swelling is improved, no chest pain or dyspnea, wants to go home afterward. Objective: Vital Signs Temp Pulse Resp BP Pulse Ox 36.9 C 54 L 16 157/72 H 95 12/11/16 04:49 12/11/16 04:49 12/11/16 04:49 12/11/16 04:49 12/11/16 04:49 Laboratory Results 12/11/16 04:20 12/10/16 12/11/16 12/12/16 05:59 05:59 05:59 Output Total 150 Balance -150 General: alert and oriented, no acute distress Eyes; EOMI, PERRL OP: Clear CV: RRR Resp: nonlabored respirations on RA, CTAB Abd: Soft, NT/ND Ext: trace edema BLE Neuro: CN II-XII grossly intact, no asterixis Psych: cooperative, appropriate mood and affect Access: RIJ tunneled catheter ICD10 Worksheet Patient Problems: Problems Problem Status Onset End stage renal disease Acute Hyperkalemia Acute Abdominal pain Acute Acute renal failure Acute Acute upper GI bleed Acute Anemia Acute Anemia associated with acute blood loss Acute Chronic renal failure Acute Diarrhea Acute Hyperkalemia Acute Hyperkalemia Acute Hyperkalemia Acute Hyperkalemia Acute Hyperkalemia Acute Hyperkalemia Acute Hyperkalemia Acute Hypertension Acute Hypocalcemia Acute Kidney failure Acute Kidney failure Acute Kidney failure Acute Metabolic acidosis Acute Renal failure Acute Shingles (herpes zoster) polyneuropathy Acute Uremia Acute Uremia Acute
[2016-12-11] MEDS ORDERED: NITROGLYCERIN 0.4 MG BTL SL PRN (11:06)
[2016-12-11] MEDS ORDERED: PANTOPRAZOLE SODIUM 40 MG TAB PO SCH (11:15)
[2016-12-11] MEDS ORDERED: METOPROLOL SUCCINATE XR 100 MG TAB PO SCH (11:15)
[2016-12-11] MEDS ORDERED: SODIUM BICARBONATE 650 MG TAB PO SCH (11:15)
[2016-12-11] MEDS ORDERED: CHOLECALCIFEROL VIT D3 1,000 UNITS TAB PO SCH (11:15)
[2016-12-11] MEDS ORDERED: ATORVASTATIN CALCIUM 40 MG TAB PO SCH (11:15)
[2016-12-11] MEDS: CALCIUM CARBONATE 500 MG CHEWABLE TAB PO SCH ×2 (13:23→16:55)
[2016-12-11] MEDS ORDERED: HEPARIN 50,000 UNIT/10 ML VIAL ONE (14:00)
--- NOTE | 2016-12-11 14:43 | GDS ---
[f rep st] DISCHARGE SUMMARY DISCHARGE DIAGNOSES: 1. End-stage renal disease without access to routine dialysis. 2. Coronary artery disease. 3. Gastrointestinal bleed while on Plavix. 4. Gastroesophageal reflux disease. 5. Anemia of chronic disease. 6. Esophagitis. 7. Hypertension. 8. Tunneled right dialysis catheter. HISTORY OF PRESENT ILLNESS: The patient is a 66-year-old male with end-stage renal disease without access to chronic HD. He was last treated December 03 through . He comes in with loose stools, wh ich is normal when needing dialysis. There is no abdominal pain, fevers, or bleeding. He also comp lains of lower extremity swelling. Denies chest pain or shortness of breath. HOSPITAL COURSE: 1. Severe hyperkalemia: Secondary to end-stage renal disease. This improved with HD x2. 2. End-stage renal disease: No access to outpatient dialysis routinely. Appreciate renal consulta tion. Patient underwent HD x2. 3. Coronary artery disease: Patient denies any chest pain or shortness of breath. Resume home med ications. 4. GERD: Continue home medications. 5. Anemia of renal disease: H and H stable. No active bleeding. No indication for transfusion. Was dosed EPO here. 6. Metabolic acidosis secondary to end-stage renal disease: Continue sodium bicarbonate. 7. Benign hypertension: Continue Norvasc and hydralazine. DISPOSITION: Patient is stable for discharge. DISCHARGE MEDICATIONS: No new medications. He does not need any refills. FOLLOWUP: Emergency room when symptomatic. /[id number]/MODL
[2016-12-11 16:38] VITALS: BP 175/79; PULSE 63; TEMP 98.3; O2SAT 96
[2016-12-12] MEDS ORDERED: NEPHROVITE FOLIC ACID/VIT B&C 1 TAB PO SCH (09:00)
[2016-12-12] MEDS ORDERED: FOLIC ACID PO SCH (09:00)
[2016-12-12] MEDS ORDERED: BIOTIN PO SCH (09:00)
[2016-12-12] MEDS ORDERED: VITAMIN B COMPLEX PO SCH (09:00)
[2016-12-12] MEDS ORDERED: ASCORBIC ACID PO SCH (09:00)
== END 2016-12-11 17:00 | disposition home or self-care (01) ==
LOC: INTOOBSV 12:36 → F1N 13:43
PROVIDERS: ADMIT Internal Medicine; ATTEND Internal Medicine
PROC: 5A1D60Z (ICD-10-PCS; principal; 2016-12-10)
DX: N18.6 End stage renal disease (principal); E87.5 Hyperkalemia; I25.10 Atherosclerotic heart disease of native coronary artery without angina pectoris; K92.2 Gastrointestinal hemorrhage, unspecified; K21.0 Gastro-esophageal reflux disease with esophagitis; E87.2 Acidosis; D63.1 Anemia in chronic kidney disease; I12.0 Hypertensive chronic kidney disease with stage 5 chronic kidney disease or end stage renal disease; Z59.7 Insufficient social insurance and welfare support; Z79.02 Long term (current) use of antithrombotics/antiplatelets; Z87.891 Personal history of nicotine dependence; Z99.2 Dependence on renal dialysis; Z82.49 Family history of ischemic heart disease and other diseases of the circulatory system
CPT/HCPCS: 82947-QW; G0378; J0610; J0885; J1644; J1815

== ENCOUNTER 2016-12-17 13:46 | Emergency (ER) | payer MEDICAID, OTHER ==
[~2016-12-17 13:46] MED LIST changes: -HEPARIN 50,000 UNIT/10 ML VIAL IV ONE; +HEPARIN 50,000 UNIT/10 ML VIAL ONE
[2016-12-17 14:25] VITALS: RESP 16
--- NOTE | 2016-12-17 15:35 | EDPHY ---
H & P Stated Complaint: here for dialysis Time Seen by Provider: 12/17/16 15:22 HPI/ROS: CHIEF COMPLAINT: Dialysis HISTORY OF PRESENT ILLNESS: The patient is a 66-year-old man who comes to the emergency department for dialysis. He has a history of end-stage renal disease without access to routine dialysis. He also has a history of coronary artery disease, GI bleed and GERD and anemia. The patient began having diarrhea yesterday which is a single to him that he needs to have dialysis. He was last here on December 10 and had dialysis then. Nephrology was consulted Dr. Rivera. He denies fevers or nausea vomiting. REVIEW OF SYSTEMS: Constitutional: denies: chills, fever, recent illness, recent injury EENTM: denies: blurred vision, double vision, nose congestion Respiratory: denies: cough, shortness of breath Cardiac: denies: chest pain, irregular heart rate, lightheadedness, palpitations Gastrointestinal/Abdominal: See HPI Genitourinary: denies: dysuria, frequency, hematuria, pain Musculoskeletal: denies: joint pain, muscle pain Skin: denies: lesions, rash, jaundice, bruising Neurological: denies: headache, numbness, paresthesia, tingling, dizziness, weakness Hematologic/Lymphatic: denies: blood clots, easy bleeding, easy bruising Immunologic/allergic: denies: HIV/AIDS, transplant EXAM: GENERAL: Well-appearing, well-nourished and in no acute distress. HEAD: Atraumatic, normocephalic. EYES: Pupils equal round and reactive to light, extraocular movements intact, sclera anicteric, conjunctiva are normal. ENT: TMs normal, nares patent, oropharynx clear without exudates. Moist mucous membranes. NECK: Normal range of motion, supple without lymphadenopathy or JVD. LUNGS: Breath sounds clear to auscultation bilaterally and equal. No wheezes rales or rhonchi. HEART: Regular rate and rhythm without murmurs, rubs or gallops. ABDOMEN: Soft, nontender, normoactive bowel sounds. No guarding, no rebound. No masses appreciated. BACK: No CVA tenderness, no spinal tenderness, step-offs or deformities EXTREMITIES: Normal range of motion, no pitting or edema. No clubbing or cyanosis. NEUROLOGICAL: Cranial nerves II through XII grossly intact. Normal speech, normal gait. 5/5 strength, normal movement in all extremities, normal sensation PSYCH: Normal mood, normal affect. SKIN: Warm, dry, normal turgor, no visible rashes or lesions. 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 Exam Limitations: No limitations - Personal History Current Tetanus/Diphtheria Vaccine: Yes Current Tetanus Diphtheria and Acellular Pertussis (TDAP): Yes Tetanus Vaccine Date: 2010 - Medical/Surgical History Hx Asthma: No Hx Chronic Respiratory Disease: No Hx Diabetes: No Hx Cardiac Disease: Yes Hx Renal Disease: Yes Hx Cirrhosis: No Hx Alcoholism: No Hx HIV/AIDS: No Hx Splenectomy or Spleen Trauma: No Other PMH: gout, htn, hernia, anemia, cad, esophagitis, gastric ulcer, renal failure, dialysis, heart stent, shingles - Family History Significant Family History: No pertinent family hx - Social History Smoking Status: Former smoker Alcohol Use: Sober Drug Use: None Constitutional: Initial Vital Signs Temperature (C) 36.8 C 12/17/16 14:22 Heart Rate 54 L 12/17/16 14:22 Respiratory Rate 16 12/17/16 14:22 Blood Pressure 132/66 H 12/17/16 14:22 O2 Sat (%) 98 12/17/16 14:22 O2 Delivery Mode Room Air Allergies/Adverse Reactions: No Known Allergies Allergy (Verified 12/03/16 13:11) Home Medications: Medication Instructions Recorded Atorvastatin Calcium [Lipitor 40 80 mg PO DAILY 10/30/16 mg (*)] Metoprolol Succinate Xr [Toprol Xl 100 mg PO DAILY 10/30/16 100 mg (*)] Nitroglycerin [Nitrostat 0.4 mg 0.4 mg SL AD PRN 10/30/16 (*)] Sodium Bicarbonate [Na Bicarb] 1,300 mg PO DAILY 10/30/16 Vit B Cmplx 3/Folic AC/C/Biot 1 each PO DAILY 10/30/16 [Ev-Peyton Rx Tablet] amLODIPine BESYLATE [Norvasc 10 mg 10 mg PO DAILY 10/30/16 (*)] Calcium Carbonate [Tums 500MG (*)] 500 mg PO TIDMEAL #90 tab.chew 11/01/16 Hydralazine HCl 50 mg PO DAILY 12/03/16 Pantoprazole Sodium [Protonix 40mg 40 mg PO DAILY 12/03/16 (*)] Medical Decision Making ED Course/Re-evaluation: 3:35 p.m. I discussed the case with Sarah Singer who will admit to the hospitalist service. The electrolytes are pending. 3:35 p.m. I also spoke with Dr. Wolfe from nephrology who will consult and dialyze emergently if the patient's potassium is elevated and he needs dialysis. Differential Diagnosis: Partial list of the Differential diagnosis considered include but were not limited to; hyperkalemia, dehydration, gastroenteritis and although unlikely based on the history and physical exam, I also considered C difficile, GI bleed. - Data Points Laboratory Results: Laboratory Results 12/17/16 20:03 Departure - Departure Disposition: [facility] Inpatient Acute Clinical Impression: End stage renal disease Condition: Fair Instructions: End Stage Kidney Disease (ED) Referrals: PATIENT,DOESN'T REMEMBER [Other] - As per Instructions
[2016-12-17 16:18] LABS: ANION GAP 25 mEq/L (8-16); CALCIUM 8.2 mg/dL (8.5-10.4); CARBON DIOXIDE 14 mEq/l (22-31); CHLORIDE 104 mEq/L (97-110); GLUCOSE 57 mg/dL (70-100); SODIUM 143 mEq/L (134-144)
[2016-12-17 16:33] LABS: CREATININE 17.9 mg/dL (0.7-1.3); GLOMERULAR FILTRATION RATE 3
[2016-12-17 16:34] LABS: POTASSIUM 6.8 mEq/L (3.5-5.2)
--- NOTE | 2016-12-17 19:37 | PDGENHP ---
History and Physical - Chief Complaint ESRD - History of Present Illness Mr. Walton is a 66 yo M with ESRD who presents to ER today for dialysis. Pt has no benefits to qualify for outpatient dialysis regularly so he comes to ER periodically for dialysis, usually is hyperkalemic. He states he is feeling fine, had some diarrhea, which is usually how he knows he needs dialysis. He has some slight swelling in his legs. He has no chest pain or dyspnea. History Information - Allergies/Home Medication List Allergies/Adverse Reactions: No Known Allergies Allergy (Verified 12/03/16 13:11) Home Medications: Atorvastatin Calcium [Lipitor 40 mg (*)] 80 mg PO DAILY 10/30/16 [Last Taken 06/23] Metoprolol Succinate Xr [Toprol Xl 100 mg (*)] 100 mg PO DAILY 10/30/16 [Last Taken 12/17/16] Nitroglycerin [Nitrostat 0.4 mg (*)] 0.4 mg SL AD PRN 10/30/16 [Last Taken Unknown] Sodium Bicarbonate [Na Bicarb] 1,300 mg PO DAILY 10/30/16 [Last Taken 12/16/16] Vit B Cmplx 3/Folic AC/C/Biot [Ev-Peyton Rx Tablet] 1 each PO DAILY 10/30/16 [ Last Taken 12/17/16] amLODIPine BESYLATE [Norvasc 10 mg (*)] 10 mg PO DAILY 10/30/16 [Last Taken 06/23] Hydralazine HCl 50 mg PO DAILY 12/03/16 [Last Taken 12/17/16] Pantoprazole Sodium [Protonix 40mg (*)] 40 mg PO DAILY 12/03/16 [Last Taken 06/23] I have personally reviewed and updated: medical history - Past Medical History coronary artery disease (Known coronary disease but has not undergone interventional cardiac catheterization), ESRD, GI bleed, GERD (Anemia of chronic disease, H/O UGIB x2 (first on Plavix +ASA, then on ASA alone), esophagitis), hypertension Additional medical history: Anemia of chronic kidney disease; upper GI bleed in the setting of anti-platelet medications, has occurred while on single and double agent therapy; 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; esophagitis - Surgical History Additional surgical history: R IJ tunneled catheter - Family History Additional family history: Mother with CVA and HTN - Social History Smoking Status: Former smoker Alcohol Use: Sober Drug Use: None Additional social history: Continues to work on non-HD days Review of Systems ROS: 10pt was reviewed & negative except for what was stated in HPI & below Physical Exam Temp Pulse Resp BP Pulse Ox 36.8 C 54 L 16 132/66 H 98 12/17/16 14:22 12/17/16 14:22 12/17/16 14:22 12/17/16 14:22 12/17/16 14:22 Constitutional: no apparent distress, appears nourished, not in pain Eyes: PERRL, anicteric sclera, EOMI Ears, Nose, Mouth, Throat: moist mucous membranes, hearing normal Cardiovascular: regular rate and rhythym, edema (trace bilateral lower extremities) Peripheral Pulses: 2+: dorsalis-pedis (R), dorsalis-pedis (L) Respiratory: no respiratory distress, no rales or rhonchi, clear to auscultation Gastrointestinal: normoactive bowel sounds, soft, non-tender abdomen Skin: warm, No rash Musculoskeletal: no muscle tenderness, normal joint ROM, no joint effusions Neurologic: AAOx3, CN II-XII Intact, No asterixes Psychiatric: interacting appropriately, not anxious, not encephalopathic, thought process linear Lab Data & Imaging Review 12/17/16 15:57 Sodium 143 mEq/L (134-144) 12/17/16 15:57 Potassium 6.8 mEq/L (3.5-5.2) H* 12/17/16 15:57 Chloride 104 mEq/L (97-110) 12/17/16 15:57 Carbon Dioxide 14 mEq/l (22-31) L 12/17/16 15:57 Anion Gap 25 mEq/L (8-16) H 12/17/16 15:57 BUN 140 mg/dL (7-23) H* 12/17/16 15:57 Creatinine 17.9 mg/dL (0.7-1.3) H* 12/17/16 15:57 Estimated GFR 3 12/17/16 15:57 Glucose 57 mg/dL (70-100) L 12/17/16 15:57 Calcium 8.2 mg/dL (8.5-10.4) L 12/17/16 15:57 Assessment & Plan Assessment: Assessment/Plan: ESRD: does not get regular HD as an outpatient due to lack of benefits. - Will do HD today. - Pt to return to ER as needed for emergency dialysis. Hyperkalemia: K 6.8, will modulate with HD today, will recheck after 3 hours of HD to see if it has improved enough to allow discharge. Metabolic acidosis: will modulate with HD. Hypervolemia: will modulate with HD. Thank you for the interesting consult. Nephrology will continue to follow, please call if you have any additional questions or concerns.
--- NOTE | 2016-12-17 19:55 | GHP ---
[f rep st] HISTORY AND PHYSICAL DATE OF ADMISSION: 12/17/2016 CHIEF COMPLAINT: Diarrhea. HISTORY: The patient is a 66-year-old male with end-stage renal disease, but he does not have acces s or benefit for outpatient hemodialysis. He comes recurrently to the emergency room for acute hemo dialysis when he becomes ill. His usual symptom that he developed sudden onset of uremia is diarrhe a. He developed his usual diarrhea yesterday and now presents to the emergency room. Found to have a potassium of 6.8. He is otherwise without complaint. His last hemodialysis was here on December 10. PAST MEDICAL HISTORY: 1. End-stage renal disease. 2. Coronary artery disease, but no previous cardiac catheterization. 3. 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 He should n ot be placed on antiplatelets. 4. Hypertension. MEDICATIONS: Please see computer record for full detailed list. ALLERGIES: No known drug allergies. SOCIAL HISTORY: No smoking. No alcohol. He is originally from [place], but has been here for many years. He works full-time. REVIEW OF SYSTEMS: A complete review of systems was obtained. Review of systems is negative for co nstitutional, HEENT, GI, pulmonary, vascular, , hematology, skin, musculoskeletal, endocrine, psyc h, except for the positives as listed in the HPI. FAMILY HISTORY: Reviewed, noncontributory to presenting complaint. PHYSICAL EXAMINATION: GENERAL: A well-developed, well-nourished male, in no acute distress. VITAL SIGNS: Temperature 36.8, pulse 54, blood pressure 132/66, saturating 98% on room air. HEENT: Eye s: Normal conjunctivae. Pupils equal and reactive to light. ENT: Normal ears and nose. Hearing intact. Normal teeth. Oropharynx moist. NECK: Trachea midline. No thyromegaly. CHEST: Normal effort. LUNGS: Clear to auscultation bilaterally. CARDIOVASCULAR: Regular rhythm, no murmur. EX TREMITIES: No lower extremity edema. ABDOMEN: Soft, nontender. No hepatosplenomegaly. SKIN: Wa rm, dry, intact, without rash. MUSCULOSKELETAL: No cyanosis or clubbing. Strength is 5/5 upper an d lower extremities. NEURO: Cranial nerves intact. Normal sensation to light touch. PSYCH: Aler t and oriented x3. Normal affect, normal judgment, normal memory. LABORATORY DATA: Sodium 143, potassium 6.8, chloride 104, bicarb 14, BUN 140, creatinine 17.9, gluc ose 79. MEDICAL RECORDS REVIEW: He is admitted recurrently for a similar presentation requiring acute hemod ialysis. This case was discussed with Dr. Wolfe of Nephrology. She is performing emergent hemodialysis. She will physically see him later this evening. She will order followup labs. There is a possibility o f discharging home tonight after dialysis if repeat labs look okay. She is going to run the dialysi s a little longer to see if he can tolerate it. ASSESSMENT AND PLAN: 1. Critical hyperkalemia secondary to missed hemodialysis, currently being dialyzed emergently. Re peat labs tonight per Dr. Wolfe in coordination with the natural gas technician. 2. End-stage renal disease. Unfortunately no access to outpatient hemodialysis requiring recurrent admissions for emergent treatment. 3. Ischemic duodenal stricture with recurrent gastrointestinal bleeds. He is not to be on any anti platelet drugs. If he has a recurrent gastrointestinal bleed, he may need surgical resection. 4. Hypertension. Continue usual home medications. ADMISSION STATUS: 1. Will admit to observation. This hopefully will be a short stay. 2. DVT prophylaxis. He is moderate risk. Will prescribe subcu heparin if he stays. 3. Code status is full. /[id number]/MODL
[2016-12-17 20:32] LABS: ANION GAP 17 mEq/L (8-16); CALCIUM 9.3 mg/dL (8.5-10.4); CARBON DIOXIDE 24 mEq/l (22-31); CHLORIDE 97 mEq/L (97-110); CREATININE 6.1 mg/dL (0.7-1.3); GLOMERULAR FILTRATION RATE 9; GLUCOSE 96 mg/dL (70-100); POTASSIUM 3.5 mEq/L (3.5-5.2); SODIUM 138 mEq/L (134-144)
[2016-12-17 21:41] VITALS: BP 173/73; PULSE 49; TEMP 97.9; O2SAT 99
--- NOTE | 2016-12-17 21:55 | GDS ---
[f rep st] DISCHARGE SUMMARY DISCHARGE DIAGNOSES: 1. Critical hyperkalemia due to missed dialysis. 2. End-stage renal disease. 3. Ischemic duodenal stricture, with recurrent gastrointestinal bleeds. 4. Hypertension. Please refer to history and physical earlier same day regarding his recurrent admissions for emergen t hemodialysis. HOSPITAL COURSE: Post dialysis, followup labs look great, and he was cleared by Nephrology to disch arge home. DISCHARGE MEDICATIONS: There were no changes to previous medications. Please see computerized [address] for a full detailed list. DISCHARGE INSTRUCTIONS: Return to the ED for recurrence of symptoms. /[id number]/MODL
[2016-12-17] MEDS ORDERED: HEPARIN 5,000 UNIT/0.5 ML SYR SC SCH (22:00)
[2016-12-18] MEDS ORDERED: CALCIUM CARBONATE 500 MG CHEWABLE TAB PO SCH (08:00)
[2016-12-18] MEDS ORDERED: FOLIC ACID PO SCH (09:00)
[2016-12-18] MEDS ORDERED: METOPROLOL SUCCINATE XR 100 MG TAB PO SCH (09:00)
[2016-12-18] MEDS ORDERED: ASCORBIC ACID PO SCH (09:00)
[2016-12-18] MEDS ORDERED: ATORVASTATIN CALCIUM 40 MG TAB PO SCH (09:00)
[2016-12-18] MEDS ORDERED: SODIUM BICARBONATE 650 MG TAB PO SCH (09:00)
[2016-12-18] MEDS ORDERED: PANTOPRAZOLE SODIUM 40 MG TAB PO SCH (09:00)
[2016-12-18] MEDS ORDERED: BIOTIN PO SCH (09:00)
[2016-12-18] MEDS ORDERED: VITAMIN B COMPLEX PO SCH (09:00)
== END 2016-12-17 22:09 | disposition home or self-care (01) ==
LOC: UNDOADMOB 15:37
DX: I12.0 Hypertensive chronic kidney disease with stage 5 chronic kidney disease or end stage renal disease (principal); N18.6 End stage renal disease; I25.10 Atherosclerotic heart disease of native coronary artery without angina pectoris
CPT/HCPCS: J1644

== ENCOUNTER 2016-12-24 14:00 | Observation (INO) | payer MEDICAID, OTHER ==
--- NOTE | 2016-12-24 15:00 | EDPHY ---
H & P Time Seen by Provider: 12/24/16 14:39 HPI/ROS: CHIEF COMPLAINT: Diarrhea, I need dialysis HISTORY OF PRESENT ILLNESS: This 66-year-old man is dialysis dependent but does not have access to outpatient dialysis. He comes here when he gets diarrhea because that is the usual symptom when he gets uremic. He has a stable rash on his right ankle. No shortness of breath and no chest pain. No syncope. REVIEW OF SYSTEMS: Eye: no change in vision ENT: no sore throat Cardiac: no chest pain or syncope Pulmonary: no cough or SOB Abdomen: Diarrhea, no vomiting or abdominal pain Musculoskeletal: no back pain Skin: Right ankle rash, stable Neuro: no headache Constitutional: no fever : no urinary symptoms A comprehensive 10 point review of systems is otherwise negative aside from elements mentioned in the history of present illness. PAST MEDICAL HISTORY: None thinks end-stage renal disease on dialysis, coronary artery disease, gout, hypertension, anemia. Social history: Works at [employer] General Appearance: Alert and conversant, cooperative. Eyes: No scleral icterus. ENT, Mouth: Normal mucous membranes. Respiratory: Normal respiratory effort, breath sounds equal, lungs are clear to auscultation. Cardiovascular: Regular rate and rhythm. Right subclavian dialysis catheter. Gastrointestinal: Abdomen is soft and non tender. Neurological: Alert and oriented x3. Normally conversant. Face symmetric, normal movement and sensation in all extremities. Skin: Right ankle medial rash, scaling, not hot to the touch, no lymphangitis, no pus or drainage. Musculoskeletal: No peripheral edema and no joint swelling. Psychiatric: Not agitated. Emergency Department course/MDM: Electrolytes and EKG. 1521: I-STAT shows creatinine greater than 20 and potassium 7.1. EKG shows sinus rhythm with QRS of 112. Calcium insulin and glucose ordered. Sodium bicarbonate also for critically high potassium. [facility] for [facility]. Smoking Status: Former smoker Constitutional: Initial Vital Signs Temperature (C) 36.4 C 12/24/16 14:01 Heart Rate 54 L 12/24/16 14:01 Respiratory Rate 18 12/24/16 14:01 Blood Pressure 132/84 H 12/24/16 14:01 O2 Sat (%) 98 12/24/16 14:01 O2 Delivery Mode Room Air Allergies/Adverse Reactions: No Known Allergies Allergy (Verified 12/24/16 14:01) Home Medications: Medication Instructions Recorded Atorvastatin Calcium [Lipitor 40 80 mg PO DAILY 10/30/16 mg (*)] Metoprolol Succinate Xr [Toprol Xl 100 mg PO DAILY 10/30/16 100 mg (*)] Nitroglycerin [Nitrostat 0.4 mg 0.4 mg SL AD PRN 10/30/16 (*)] Sodium Bicarbonate [Na Bicarb] 1,300 mg PO DAILY 10/30/16 Vit B Cmplx 3/Folic AC/C/Biot 1 each PO DAILY 10/30/16 [Ev-Peyton Rx Tablet] amLODIPine BESYLATE [Norvasc 10 mg 10 mg PO DAILY 10/30/16 (*)] Calcium Carbonate [Tums 500MG (*)] 500 mg PO TIDMEAL #90 tab.chew 11/01/16 Hydralazine HCl 50 mg PO DAILY 12/03/16 Pantoprazole Sodium [Protonix 40mg 40 mg PO DAILY 12/03/16 (*)] Medical Decision Making - Diagnostics EKG Interpretation: 12-lead EKG interpreted by me; official reading is in trace master. My interpretation is sinus rhythm with rate 49 and QRS duration 112. Consult/Admit Bed Type: [facility] 1532, [facility] 1532 Critical Care Time: Critical care time spent by me, Dr. Teran, exclusively with the care of this patient was 30 minutes, exclusive of PA or WELL SERVICE FLOORPERSON time and exclusive of separate procedures. The organ system at risk was metabolic and I ordered IV calcium, insulin, glucose, bicarbonate, discussion with hospitalist and substation operator chief to stabilize the patient and prevent worsening of the patient's condition. - Data Points Laboratory Results: Laboratory Results 12/24/16 15:15 12/24/16 15:15 12/24/16 12/24/16 12/24/16 15:15 15:15 15:12 WBC 4.83 10^3/uL 10^3/uL (3.80-9.50) RBC 2.48 10^6/uL L 10^6/uL (4.40-6.38) Hgb 8.0 g/dL L g/dL (13.7-17.5) POC Hgb 8.8 gm/dL L gm/dL (13.7-17.5) Hct 24.9 % L % (40.0-51.0) POC Hct 26 % L % (40-51) MCV 100.4 fL H fL (81.5-99.8) MCH 32.3 pg pg (27.9-34.1) MCHC 32.1 g/dL L g/dL (32.4-36.7) RDW 15.3 % H % (11.5-15.2) Plt Count 124 10^3/uL L 10^3/uL (150-400) MPV 11.1 fL fL (8.7-11.7) Neut % (Auto) 64.7 % % (39.3-74.2) Lymph % (Auto) 17.0 % % (15.0-45.0) [place] % (Auto) 6.4 % % (4.5-13.0) Eos % (Auto) 10.1 % H % (0.6-7.6) Baso % (Auto) 1.2 % % (0.3-1.7) Nucleat RBC Rel Count 0.0 % % (0.0-0.2) Absolute Neuts (auto) 3.12 10^3/uL 10^3/uL (1.70-6.50) Absolute Lymphs (auto) 0.82 10^3/uL L 10^3/uL (1.00-3.00) Absolute Monos (auto) 0.31 10^3/uL 10^3/uL (0.30-0.80) Absolute Eos (auto) 0.49 10^3/uL H 10^3/uL (0.03-0.40) Absolute Basos (auto) 0.06 10^3/uL 10^3/uL (0.02-0.10) Absolute Nucleated RBC 0.00 10^3/uL 10^3/uL (0-0.01) Immature Gran % 0.6 % % (0.0-1.1) Immature Gran # 0.03 10^3/uL 10^3/uL (0.00-0.10) POC Sodium 141 mEq/L mEq/L (134-144) Sodium 141 mEq/L mEq/L (134-144) POC Potassium 7.1 mEq/L H* mEq/L (3.3-5.0) Potassium 7.3 mEq/L H* mEq/L (3.5-5.2) POC Chloride 110 mEq/L mEq/L (97-110) Chloride 104 mEq/L mEq/L (97-110) Carbon Dioxide 13 mEq/l L mEq/l (22-31) Anion Gap 24 mEq/L H mEq/L (8-16) POC BUN Pending BUN 153 mg/dL H* mg/dL (7-23) Creatinine 19.7 mg/dL H* mg/dL (0.7-1.3) POC Creatinine Pending Estimated GFR 2 Glucose 95 mg/dL mg/dL (70-100) POC Glucose 97 mg/dL mg/dL (70-100) Calcium 7.4 mg/dL L mg/dL (8.5-10.4) Total Bilirubin 0.7 mg/dL mg/dL (0.1-1.4) AST 11 IU/L L IU/L (17-59) ALT 27 IU/L IU/L (21-72) Alkaline Phosphatase 146 IU/L H IU/L (38-126) Total Protein 6.8 g/dL g/dL (6.3-8.2) Albumin 4.8 g/dL g/dL (3.5-5.0) Medications Given: Discontinued Medications Dextrose (Dextrose 50% Vial) 25 gm IVP EDNOW ONE Stop: 12/24/16 16:01 Last Admin: 12/24/16 16:30 Dose: 25 gm Calcium Gluconate (Calcium Gluconate 1 Gm (Premix)) 50 mls @ 100 mls/hr IV EDNOW ONE Stop: 12/24/16 15:51 Last Admin: 12/24/16 16:51 Dose: 50 mls Insulin Human Regular (Humulin R) 10 unit IVP EDNOW ONE Stop: 12/24/16 15:23 Last Admin: 12/24/16 16:40 Dose: 10 units Sodium Bicarbonate (Sodium Bicarbonate) 50 meq IVP EDNOW ONE Stop: 12/24/16 15:40 Last Admin: 12/24/16 16:41 Dose: 50 meq Point of Care Test Results: 12/24/16 15:12 POC Sodium 141 POC Potassium 7.1 H* POC Chloride 110 POC Glucose 97 Departure - Departure Disposition: [facility] Acute Clinical Impression: End stage renal disease, Hyperkalemia Condition: Fair
--- NOTE | 2016-12-24 15:15 | CPEKG ---
Heart Rate: 49 RR Interval: 1224 P-R Interval: 180 QRSD Interval: 112 QT Interval: 480 QTC Interval: 434 QRS [place]: 68 T Wave [place]: 64 EKG Severity - ABNORMAL ECG - EKG Impression: SINUS RHYTHM EKG Impression: NONSPECIFIC INTRAVENTRICULAR CONDUCTION DELAY Electronically Signed By: Esteban Teran 24-Dec-2016 15:23:59
[2016-12-24] MEDS ORDERED: INSULIN REGULAR HUMAN 100 UNIT/ML IVP ONE (15:22)
[2016-12-24] MEDS ORDERED: CALCIUM GLUCONATE 50 ML IV ONE (15:22)
[2016-12-24] MEDS ORDERED: D50W 25 GM/50 ML SYR IVP ONE (15:22)
[2016-12-24 15:28] LABS: % IMMATURE GRANULYOCYTES 0.6 % (0.0-1.1); ABSOLUTE IMMATURE GRANULOCYTES 0.03 10^3/uL (0.00-0.10); ADD DIFF? NO; ADD MORPH? NO; ADD SCAN? NO; ATYPICAL LYMPHOCYTE FLAG 0 (0-99); FRAGMENT RBC FLAG 0 (0-99); HEMATOCRIT 24.9 % (40.0-51.0); LEFT SHIFT FLG 0 (0-99); LIPEMIA HEMOLYSIS FLAG 80 (0-99); MEAN CELL HEMOGLOBIN 32.3 pg (27.9-34.1); MEAN CELL HEMOGLOBIN CONCENTR. 32.1 g/dL (32.4-36.7); MEAN CELL VOLUME 100.4 fL (81.5-99.8); MEAN PLATELET VOLUME 11.1 fL (8.7-11.7); PLATELET CLUMPS FLAG 0 (0-99); PLATELET COUNT 124 10^3/uL (150-400); RED BLOOD CELL COUNT 2.48 10^6/uL (4.40-6.38); RED CELL DISTRIBUTION WIDTH 15.3 % (11.5-15.2)
[2016-12-24 15:38] LABS: ALANINE AMINOTRANSFERASE 27 IU/L (21-72); ALBUMIN 4.8 g/dL (3.5-5.0); ALKALINE PHOSPHATASE 146 IU/L (38-126); ANION GAP 24 mEq/L (8-16); ASPARTATE AMINOTRANSFERASE 11 IU/L (17-59); BILIRUBIN,TOTAL 0.7 mg/dL (0.1-1.4); CALCIUM 7.4 mg/dL (8.5-10.4); CARBON DIOXIDE 13 mEq/l (22-31); CHLORIDE 104 mEq/L (97-110); GLUCOSE 95 mg/dL (70-100); SODIUM 141 mEq/L (134-144); TOTAL PROTEIN 6.8 g/dL (6.3-8.2)
[2016-12-24] MEDS ORDERED: SODIUM BICARBONATE 50 MEQ/50 ML SYR IVP ONE (15:39)
[2016-12-24 15:52] LABS: GLOMERULAR FILTRATION RATE 2
[2016-12-24 15:53] LABS: CREATININE 19.7 mg/dL (0.7-1.3); POTASSIUM 7.3 mEq/L (3.5-5.2)
[2016-12-24] MEDS ORDERED: NA BICARBONATE 50 MEQ/50 ML VIAL IV ONE (16:00)
[2016-12-24] MEDS ORDERED: D50W 25 GM/50 ML VIAL IVP ONE ×2 (16:00→18:45)
[2016-12-24] MEDS ORDERED: NITROGLYCERIN 0.4 MG BTL SL PRN (17:03)
--- NOTE | 2016-12-24 17:11 | PDGENHP ---
History and Physical - Chief Complaint Here for Dialysis - History of Present Illness This is a 66 y/o male well known to our service with ESRD on HD, but not established at a dialysis center due to lack of insurance. His last Dialysis was 1 week ago at [facility]. He denies any shortness of breath or chest pain. He has been in his usual state of health. He does report long standing diarrhea that is chronic. He has no other acute complaints History Information - Allergies/Home Medication List Allergies/Adverse Reactions: No Known Allergies Allergy (Verified 12/24/16 14:01) Home Medications: Atorvastatin Calcium [Lipitor 40 mg (*)] 80 mg PO DAILY 10/30/16 [Last Taken 06/23] Metoprolol Succinate Xr [Toprol Xl 100 mg (*)] 100 mg PO DAILY 10/30/16 [Last Taken 12/17/16] Nitroglycerin [Nitrostat 0.4 mg (*)] 0.4 mg SL AD PRN 10/30/16 [Last Taken Unknown] Sodium Bicarbonate [Na Bicarb] 1,300 mg PO DAILY 10/30/16 [Last Taken 12/16/16] Vit B Cmplx 3/Folic AC/C/Biot [Ev-Peyton Rx Tablet] 1 each PO DAILY 10/30/16 [ Last Taken 12/17/16] amLODIPine BESYLATE [Norvasc 10 mg (*)] 10 mg PO DAILY 10/30/16 [Last Taken 06/23] Hydralazine HCl 50 mg PO DAILY 12/03/16 [Last Taken 12/17/16] Pantoprazole Sodium [Protonix 40mg (*)] 40 mg PO DAILY 12/03/16 [Last Taken 06/23] I have personally reviewed and updated: family history, medical history, social history, surgical history - Past Medical History coronary artery disease (Known coronary disease but has not undergone interventional cardiac catheterization), ESRD, GI bleed, GERD (Anemia of chronic disease, H/O UGIB x2 (first on Plavix +ASA, then on ASA alone), esophagitis), hypertension Additional medical history: Anemia of chronic kidney disease; upper GI bleed in the setting of anti-platelet medications, has occurred while on single and double agent therapy; 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; esophagitis - Surgical History Additional surgical history: R IJ tunneled catheter - Family History Additional family history: Mother with CVA and HTN - Social History Smoking Status: Former smoker Additional social history: Continues to work on non-HD days Review of Systems ROS: 10pt was reviewed & negative except for what was stated in HPI & below Constitutional: Reports: no symptoms. Denies: chills, fever, weight loss Cardiac: Reports: no symptoms Respiratory: Reports: no symptoms Gastrointestinal: Reports: diarrhea Physical Exam Temp Pulse Resp BP Pulse Ox 36.4 C 45 L 18 131/61 H 98 12/24/16 14:01 12/24/16 16:59 12/24/16 16:59 12/24/16 16:59 12/24/16 16:59 Constitutional: no apparent distress, appears nourished, not in pain Eyes: PERRL, anicteric sclera, EOMI Ears, Nose, Mouth, Throat: moist mucous membranes, hearing normal, ears appear normal, no oral mucosal ulcers Cardiovascular: regular rate and rhythym, no murmur, rub, or gallop, No edema Respiratory: no respiratory distress, no rales or rhonchi, clear to auscultation Gastrointestinal: normoactive bowel sounds, soft, non-tender abdomen, no palpable masses, No guarding, No rebound Genitourinary: no bladder fullness, no bladder tenderness Skin: warm, normal color, no rashes or abrasions, no fluctuance, no induration, rash (persistent scaly irritated skin right ankle), other (tunneled cath in place right chest wihtout signs of infection), No mottled Musculoskeletal: full muscle strength, no muscle tenderness, normal joint ROM, no joint effusions Neurologic: AAOx3, CN II-XII Intact, No facial droop Lab Data & Imaging Review 12/24/16 15:15 12/24/16 15:15 WBC 4.83 10^3/uL (3.80-9.50) 12/24/16 15:15 RBC 2.48 10^6/uL (4.40-6.38) L 12/24/16 15:15 Hgb 8.0 g/dL (13.7-17.5) L 12/24/16 15:15 POC Hgb 8.8 gm/dL (13.7-17.5) L 12/24/16 15:12 Hct 24.9 % (40.0-51.0) L 12/24/16 15:15 POC Hct 26 % (40-51) L 12/24/16 15:12 MCV 100.4 fL (81.5-99.8) H 12/24/16 15:15 MCH 32.3 pg (27.9-34.1) 12/24/16 15:15 MCHC 32.1 g/dL (32.4-36.7) L 12/24/16 15:15 RDW 15.3 % (11.5-15.2) H 12/24/16 15:15 Plt Count 124 10^3/uL (150-400) L 12/24/16 15:15 MPV 11.1 fL (8.7-11.7) 12/24/16 15:15 Neut % (Auto) 64.7 % (39.3-74.2) 12/24/16 15:15 Lymph % (Auto) 17.0 % (15.0-45.0) 12/24/16 15:15 [place] % (Auto) 6.4 % (4.5-13.0) 12/24/16 15:15 Eos % (Auto) 10.1 % (0.6-7.6) H 12/24/16 15:15 Baso % (Auto) 1.2 % (0.3-1.7) 12/24/16 15:15 Nucleat RBC Rel Count 0.0 % (0.0-0.2) 12/24/16 15:15 Absolute Neuts (auto) 3.12 10^3/uL (1.70-6.50) 12/24/16 15:15 Absolute Lymphs (auto) 0.82 10^3/uL (1.00-3.00) L 12/24/16 15:15 Absolute Monos (auto) 0.31 10^3/uL (0.30-0.80) 12/24/16 15:15 Absolute Eos (auto) 0.49 10^3/uL (0.03-0.40) H 12/24/16 15:15 Absolute Basos (auto) 0.06 10^3/uL (0.02-0.10) 12/24/16 15:15 Absolute Nucleated RBC 0.00 10^3/uL (0-0.01) 12/24/16 15:15 Immature Gran % 0.6 % (0.0-1.1) 12/24/16 15:15 Immature Gran # 0.03 10^3/uL (0.00-0.10) 12/24/16 15:15 POC Sodium 141 mEq/L (134-144) 12/24/16 15:12 Sodium 141 mEq/L (134-144) 12/24/16 15:15 POC Potassium 7.1 mEq/L (3.3-5.0) H* 12/24/16 15:12 Potassium 7.3 mEq/L (3.5-5.2) H* 12/24/16 15:15 POC Chloride 110 mEq/L (97-110) 12/24/16 15:12 Chloride 104 mEq/L (97-110) 12/24/16 15:15 Carbon Dioxide 13 mEq/l (22-31) L 12/24/16 15:15 Anion Gap 24 mEq/L (8-16) H 12/24/16 15:15 BUN 153 mg/dL (7-23) H* 12/24/16 15:15 Creatinine 19.7 mg/dL (0.7-1.3) H* 12/24/16 15:15 Estimated GFR 2 12/24/16 15:15 Glucose 95 mg/dL (70-100) 12/24/16 15:15 POC Glucose 97 mg/dL (70-100) 12/24/16 15:12 Calcium 7.4 mg/dL (8.5-10.4) L 12/24/16 15:15 Total Bilirubin 0.7 mg/dL (0.1-1.4) 12/24/16 15:15 AST 11 IU/L (17-59) L 12/24/16 15:15 ALT 27 IU/L (21-72) 12/24/16 15:15 Alkaline Phosphatase 146 IU/L (38-126) H 12/24/16 15:15 Total Protein 6.8 g/dL (6.3-8.2) 12/24/16 15:15 Albumin 4.8 g/dL (3.5-5.0) 12/24/16 15:15 Visualized and Interpreted EKG results: Yes EKG additional interpertation: peaked t waves. qrs 112 Assessment & Plan Assessment: This is a 66-year-old male well known to our service with history of end-stage renal disease on hemodialysis last dialysis was last Saturday presenting with: # hyperkalemia # end-stage renal disease without benefits for outpatient dialysis # bradycardia # hypertension Plan: -I discussed case with Dr. James Harrell from [facility] who plans to initiate dialysis immediately. -monitor on telemetry -repeat labs in a.m. -will hold beta-bonifacio and amlodipine for heart rate less than 50 -monitor blood pressure and continue hydralazine and other blood pressure medications as tolerated
[2016-12-24] MEDS: CALCIUM CARBONATE 500 MG CHEWABLE TAB PO SCH (21:37)
[2016-12-24] MEDS ORDERED: HEPARIN 50,000 UNIT/10 ML VIAL ONE (22:18)
[2016-12-24 22:52] LABS: POTASSIUM 4.4 mEq/L (3.5-5.2)
--- NOTE | 2016-12-25 08:59 | SOAPPROG ---
SOAP Progress Note Assessment/Plan: Assessment:Plan: ESRD-presented severely hyperkalemic and uremic -hyperkalemia better -still quite sick and uremic -high risk -prior episodes of dialysis dysequilibrium, so unable to aggressively dialyze -short treatment yesterday -tolerating Hd today -plan again for tomorrow 12/25/16 08:57 Subjective: stable on dialysis Objective: Vital Signs Temp Pulse Resp BP Pulse Ox 36.4 C 57 L 13 131/75 H 96 12/25/16 04:00 12/25/16 04:00 12/25/16 04:00 12/25/16 04:00 12/25/16 04:00 Laboratory Results 12/24/16 22:41 12/24/16 12/25/16 12/26/16 05:59 05:59 05:59 Intake Total 490 Output Total 1000 Balance -510 Physical Exam - Physical Exam General Appearance: moderate distress EENT: normal ENT inspection Neck: normal inspection Respiratory: lungs clear, normal breath sounds Cardiac/Chest: regular rate, rhythm Abdomen: normal bowel sounds, non-tender Extremities: swelling (trace) ICD10 Worksheet Patient Problems: Problems Problem Status Onset End stage renal disease Acute Hyperkalemia Acute Abdominal pain Acute Acute renal failure Acute Acute upper GI bleed Acute Anemia Acute Anemia associated with acute blood loss Acute Chronic renal failure Acute Diarrhea Acute Hyperkalemia Acute Hyperkalemia Acute Hyperkalemia Acute Hyperkalemia Acute Hyperkalemia Acute Hyperkalemia Acute Hyperkalemia Acute Hypertension Acute Hypocalcemia Acute Kidney failure Acute Kidney failure Acute Kidney failure Acute Metabolic acidosis Acute Renal failure Acute Shingles (herpes zoster) polyneuropathy Acute Uremia Acute Uremia Acute
[2016-12-25] MEDS ORDERED: ASCORBIC ACID PO SCH (09:00)
[2016-12-25] MEDS ORDERED: BIOTIN PO SCH (09:00)
[2016-12-25] MEDS ORDERED: VITAMIN B COMPLEX PO SCH (09:00)
[2016-12-25] MEDS ORDERED: FOLIC ACID PO SCH (09:00)
[2016-12-25] MEDS ORDERED: HEPARIN 50,000 UNIT/10 ML VIAL ONE (09:31)
[2016-12-25] MEDS: CALCIUM CARBONATE 500 MG CHEWABLE TAB PO SCH ×3 (09:45→18:50)
[2016-12-25] MEDS: NEPHROVITE FOLIC ACID/VIT B&C 1 TAB PO SCH (09:46)
[2016-12-25] MEDS: PANTOPRAZOLE SODIUM 40 MG TAB PO SCH (09:46)
[2016-12-25] MEDS: ATORVASTATIN CALCIUM 40 MG TAB PO SCH (09:46)
[2016-12-25] MEDS: SODIUM BICARBONATE 650 MG TAB PO SCH (09:46)
[2016-12-25] MEDS: METOPROLOL SUCCINATE XR 100 MG TAB PO SCH (09:46)
--- NOTE | 2016-12-25 11:18 | HOSPPROG ---
Hospitalist Progress Note Assessment/Plan: 66 yo M w esrd here w hyperkalemia hyperkalemia: improved after hd admit ekg w peaked t waves (interp by me) now 4.4 diarrhea: chronic, typically indicated need for HD cdiff neg 08/24 esrd: hd again in AM proph: sc heparin dispo: inpt Subjective: no events tele (interp by me). case d/w dr larios Objective: Vital Signs Temp Pulse Resp BP Pulse Ox 36.7 C 54 L 18 163/81 H 95 12/25/16 09:40 12/25/16 09:40 12/25/16 09:40 12/25/16 09:40 12/25/16 09:40 Laboratory Results 12/24/16 22:41 12/24/16 12/25/16 12/26/16 05:59 05:59 05:59 Intake Total 490 Output Total 1000 1000 Balance -510 -1000 - Physical Exam Constitutional: no apparent distress, appears nourished Eyes: PERRL, anicteric sclera Ears, Nose, Mouth, Throat: moist mucous membranes, hearing normal Cardiovascular: regular rate and rhythym, no murmur, rub, or gallop, No systolic murmur Respiratory: no respiratory distress, no rales or rhonchi Gastrointestinal: normoactive bowel sounds, soft, non-tender abdomen Genitourinary: no bladder fullness, No [place] in urethra Skin: warm, normal color Musculoskeletal: full muscle strength ICD10 Worksheet Patient Problems: Problems Problem Status Onset End stage renal disease Acute Hyperkalemia Acute Abdominal pain Acute Acute renal failure Acute Acute upper GI bleed Acute Anemia Acute Anemia associated with acute blood loss Acute Chronic renal failure Acute Diarrhea Acute Hyperkalemia Acute Hyperkalemia Acute Hyperkalemia Acute Hyperkalemia Acute Hyperkalemia Acute Hyperkalemia Acute Hyperkalemia Acute Hypertension Acute Hypocalcemia Acute Kidney failure Acute Kidney failure Acute Kidney failure Acute Metabolic acidosis Acute Renal failure Acute Shingles (herpes zoster) polyneuropathy Acute Uremia Acute Uremia Acute
[2016-12-25] MEDS: HEPARIN 5,000 UNIT/0.5 ML SYR SC SCH ×2 (14:06→21:31)
[2016-12-25 14:18] LABS: ALBUMIN 4.3 g/dL (3.5-5.0); ANION GAP 16 mEq/L (8-16); CALCIUM 8.1 mg/dL (8.5-10.4); CARBON DIOXIDE 22 mEq/l (22-31); CHLORIDE 98 mEq/L (97-110); CREATININE 6.7 mg/dL (0.7-1.3); GLOMERULAR FILTRATION RATE 8; GLUCOSE 147 mg/dL (70-100); POTASSIUM 4.3 mEq/L (3.5-5.2); SODIUM 136 mEq/L (134-144)
[2016-12-25 14:59] LABS: HEMATOCRIT 23.5 % (40.0-51.0); MEAN CELL HEMOGLOBIN 32.7 pg (27.9-34.1); MEAN CELL VOLUME 95.9 fL (81.5-99.8); RED BLOOD CELL COUNT 2.45 10^6/uL (4.40-6.38); RED CELL DISTRIBUTION WIDTH 14.9 % (11.5-15.2)
[2016-12-26 05:55] LABS: HEMATOCRIT 22.8 % (40.0-51.0); HEMOGLOBIN 7.5 g/dL (13.7-17.5); MEAN CELL HEMOGLOBIN 31.9 pg (27.9-34.1); MEAN CELL HEMOGLOBIN CONCENTR. 32.9 g/dL (32.4-36.7); RED BLOOD CELL COUNT 2.35 10^6/uL (4.40-6.38); RED CELL DISTRIBUTION WIDTH 14.9 % (11.5-15.2)
[2016-12-26] MEDS: HEPARIN 5,000 UNIT/0.5 ML SYR SC SCH (06:01)
[2016-12-26 06:15] LABS: ALBUMIN 3.8 g/dL (3.5-5.0); ANION GAP 15 mEq/L (8-16); CALCIUM 7.4 mg/dL (8.5-10.4); CARBON DIOXIDE 22 mEq/l (22-31); CHLORIDE 100 mEq/L (97-110); GLOMERULAR FILTRATION RATE 6; GLUCOSE 85 mg/dL (70-100); POTASSIUM 5.2 mEq/L (3.5-5.2); SODIUM 137 mEq/L (134-144)
[2016-12-26 06:35] LABS: CREATININE 8.5 mg/dL (0.7-1.3)
[2016-12-26 08:18] VITALS: O2SAT 94
--- NOTE | 2016-12-26 10:08 | HOSPPROG ---
Hospitalist Progress Note Assessment/Plan: 66 yo M w esrd here w hyperkalemia hyperkalemia: iresolved diarrhea: chronic, typically indicated need for HD cdiff neg 08/24 esrd: hd X 2.5 while here anemia: chronic, no blood loss Hg>7, no need for transfusion proph: sc heparin dispo: home today > 30minutes on dc Subjective: potassium normalized. case d/w dr hansen Objective: Vital Signs Temp Pulse Resp BP Pulse Ox 36.9 C 52 L 16 155/79 H 94 12/26/16 08:00 12/26/16 08:00 12/26/16 08:00 12/26/16 08:00 12/26/16 08:00 Laboratory Results 12/26/16 03:59 12/26/16 03:59 12/25/16 12/26/16 12/27/16 05:59 05:59 05:59 Intake Total 490 500 Output Total 1000 1000 Balance -510 -500 - Physical Exam Constitutional: no apparent distress, appears nourished Eyes: PERRL, anicteric sclera Ears, Nose, Mouth, Throat: moist mucous membranes, hearing normal Cardiovascular: regular rate and rhythym, no murmur, rub, or gallop, systolic murmur Respiratory: no respiratory distress, no rales or rhonchi Gastrointestinal: normoactive bowel sounds, soft, non-tender abdomen Genitourinary: no bladder fullness, No [place] in urethra Skin: warm, normal color Musculoskeletal: full muscle strength, no muscle tenderness Neurologic: AAOx3 ICD10 Worksheet Patient Problems: Problems Problem Status Onset End stage renal disease Acute Hyperkalemia Acute Abdominal pain Acute Acute renal failure Acute Acute upper GI bleed Acute Anemia Acute Anemia associated with acute blood loss Acute Chronic renal failure Acute Diarrhea Acute Hyperkalemia Acute Hyperkalemia Acute Hyperkalemia Acute Hyperkalemia Acute Hyperkalemia Acute Hyperkalemia Acute Hyperkalemia Acute Hypertension Acute Hypocalcemia Acute Kidney failure Acute Kidney failure Acute Kidney failure Acute Metabolic acidosis Acute Renal failure Acute Shingles (herpes zoster) polyneuropathy Acute Uremia Acute Uremia Acute
[2016-12-26] MEDS ORDERED: HEPARIN 50,000 UNIT/10 ML VIAL ONE (11:00)
--- NOTE | 2016-12-26 11:10 | SOAPPROG ---
JACQUELINE Progress Note Assessment/Plan: Assessment: 1. ESRD without benefits Stable HD today. Looks quite good. OK for DC. Plan: 12/26/16 11:09 Objective: Vital Signs Temp Pulse Resp BP Pulse Ox 36.9 C 52 L 16 155/79 H 94 12/26/16 08:00 12/26/16 08:00 12/26/16 08:00 12/26/16 08:00 12/26/16 08:00 Laboratory Results 12/26/16 03:59 12/26/16 03:59 12/25/16 12/26/16 12/27/16 05:59 05:59 05:59 Intake Total 490 500 Output Total 1000 1000 Balance -510 -500 Physical Exam - Physical Exam General Appearance: no apparent distress Neck: other (Catheter site ok) Respiratory: lungs clear Cardiac/Chest: regular rate, rhythm Extremities: normal inspection Neuro/Psych: normal mood/affect, oriented x 3 ICD10 Worksheet Patient Problems: Problems Problem Status Onset End stage renal disease Acute Hyperkalemia Acute Abdominal pain Acute Acute renal failure Acute Acute upper GI bleed Acute Anemia Acute Anemia associated with acute blood loss Acute Chronic renal failure Acute Diarrhea Acute Hyperkalemia Acute Hyperkalemia Acute Hyperkalemia Acute Hyperkalemia Acute Hyperkalemia Acute Hyperkalemia Acute Hyperkalemia Acute Hypertension Acute Hypocalcemia Acute Kidney failure Acute Kidney failure Acute Kidney failure Acute Metabolic acidosis Acute Renal failure Acute Shingles (herpes zoster) polyneuropathy Acute Uremia Acute Uremia Acute
[2016-12-26] MEDS: ATORVASTATIN CALCIUM 40 MG TAB PO SCH (11:14)
[2016-12-26] MEDS: CALCIUM CARBONATE 500 MG CHEWABLE TAB PO SCH ×2 (11:14→11:15)
[2016-12-26] MEDS: METOPROLOL SUCCINATE XR 100 MG TAB PO SCH (11:15)
[2016-12-26 11:17] VITALS: BP 168/86; PULSE 60
[2016-12-26] MEDS: PANTOPRAZOLE SODIUM 40 MG TAB PO SCH (11:17)
[2016-12-26] MEDS: SODIUM BICARBONATE 650 MG TAB PO SCH (11:17)
[2016-12-26] MEDS: NEPHROVITE FOLIC ACID/VIT B&C 1 TAB PO SCH (11:17)
[2016-12-26 11:50] VITALS: RESP 18; TEMP 96.9
--- NOTE | 2016-12-26 12:24 | GDS ---
[f rep st] DISCHARGE SUMMARY DISCHARGE DIAGNOSES: 1. Hyperkalemia. 2. End-stage renal disease. 3. Anemia secondary chronic kidney disease. 4. Hypertension. Please see admission history and physical by Dr. Zia White. The patient presented with diarrhea __ consistent with his need for dialysis. He received 2-1/2 sessions of dialysis here. His p otassium was 7.1 on presentation, fell to 5.2. He was euvolemic. The patient had a hemoglobin of 7 .5 while here, which is too high for transfusion. The patient is discharged today after dialysis. /[id number]/MODL
== END 2016-12-26 14:42 | disposition home or self-care (01) ==
LOC: INTOOBSV 15:32 → F2W 19:07
PROVIDERS: ADMIT Family Medicine; ATTEND Internal Medicine
PROC: 5A1D00Z (ICD-10-PCS; principal; 2016-12-24)
DX: I12.0 Hypertensive chronic kidney disease with stage 5 chronic kidney disease or end stage renal disease (principal); N18.6 End stage renal disease; E87.5 Hyperkalemia; D63.1 Anemia in chronic kidney disease; Z99.2 Dependence on renal dialysis
CPT/HCPCS: 82947-QW; 96365; G0378; J0610; J1644; J1815

== ENCOUNTER 2016-12-31 14:17 | Inpatient (IN) | payer MEDICAID, OTHER ==
--- NOTE | 2016-12-31 14:42 | CPEKG ---
Heart Rate: 57 RR Interval: 1053 P-R Interval: 176 QRSD Interval: 90 QT Interval: 456 QTC Interval: 444 P Randall: 67 QRS Randall: 61 T Wave Randall: 65 EKG Severity - NORMAL ECG - EKG Impression: SINUS RHYTHM Electronically Signed By: Raymundo Leonard 01-Jan-2017 16:26:59
[2016-12-31 14:51] LABS: % IMMATURE GRANULYOCYTES 0.5 % (0.0-1.1); ABSOLUTE IMMATURE GRANULOCYTES 0.03 10^3/uL (0.00-0.10); ADD DIFF? NO; ADD MORPH? NO; ADD SCAN? NO; ATYPICAL LYMPHOCYTE FLAG 0 (0-99); FRAGMENT RBC FLAG 0 (0-99); HEMATOCRIT 21.9 % (40.0-51.0); HEMOGLOBIN 7.1 g/dL (13.7-17.5); LEFT SHIFT FLG 0 (0-99); LIPEMIA HEMOLYSIS FLAG 80 (0-99); MEAN CELL HEMOGLOBIN CONCENTR. 32.4 g/dL (32.4-36.7); MEAN CELL VOLUME 98.6 fL (81.5-99.8); MEAN PLATELET VOLUME 10.9 fL (8.7-11.7); PLATELET CLUMPS FLAG 0 (0-99); PLATELET COUNT 133 10^3/uL (150-400); RED BLOOD CELL COUNT 2.22 10^6/uL (4.40-6.38); RED CELL DISTRIBUTION WIDTH 15.2 % (11.5-15.2)
--- NOTE | 2016-12-31 15:00 | EDPHY ---
H & P Stated Complaint: Dialysis. Time Seen by Provider: 12/31/16 14:27 HPI/ROS: Chief complaint: Needs dialysis History of present illness: This is a 66-year-old male with a history of end- stage renal disease on dialysis but due to social problems is unable to get on an outpatient basis who presents to the emergency department requesting dialysis. Patient was last seen approximately a week ago at this emergency department and dialyzed at that time. He feels is time for dialysis again. He is feeling swollen. He started to develop some diarrhea. He denies other associated signs or symptoms at this time. Review of systems: A 10 point review of systems was obtained and other than described above was negative - Personal History Tetanus Vaccine Date: 2010 - Medical/Surgical History Hx Asthma: No Hx Chronic Respiratory Disease: No Hx Diabetes: No Hx Cardiac Disease: Yes Hx Renal Disease: Yes Hx Cirrhosis: No Hx Alcoholism: No Hx HIV/AIDS: No Hx Splenectomy or Spleen Trauma: No Other PMH: gout, htn, hernia, anemia, cad, esophagitis, gastric ulcer, renal failure, dialysis, heart stent, shingles - Social History Smoking Status: Former smoker Constitutional: Initial Vital Signs Temperature (C) 36.5 C 12/31/16 14:18 Heart Rate 59 L 12/31/16 14:18 Respiratory Rate 16 12/31/16 14:18 Blood Pressure 134/61 H 12/31/16 14:18 O2 Sat (%) 97 12/31/16 14:18 O2 Delivery Mode Room Air Allergies/Adverse Reactions: No Known Allergies Allergy (Verified 12/24/16 14:01) Home Medications: Medication Instructions Recorded Atorvastatin Calcium [Lipitor 40 80 mg PO DAILY 10/30/16 mg (*)] Metoprolol Succinate Xr [Toprol Xl 100 mg PO DAILY 10/30/16 100 mg (*)] Nitroglycerin [Nitrostat 0.4 mg 0.4 mg SL AD PRN 10/30/16 (*)] Sodium Bicarbonate [Na Bicarb] 1,300 mg PO DAILY 10/30/16 Vit B Cmplx 3/Folic AC/C/Biot 1 each PO DAILY 10/30/16 [Ev-Peyton Rx Tablet] amLODIPine BESYLATE [Norvasc 10 mg 10 mg PO DAILY 10/30/16 (*)] Calcium Carbonate [Tums 500MG (*)] 500 mg PO TIDMEAL #90 tab.chew 11/01/16 Hydralazine HCl 50 mg PO DAILY 12/03/16 Pantoprazole Sodium [Protonix 40mg 40 mg PO DAILY 12/03/16 (*)] Medical Decision Making ED Course/Re-evaluation: Patient seen under the supervision of my secondary supervising physician Dr. Geremias Enamorado. Patient presents to the emergency department for dialysis. It has been 1 week since he has been dialyzed. Baseline blood studies are obtained. Patient is hyperkalemic, no dynamic EKG changes. Bicarb is 14. Patient is admitted to Dr. Russell of the hospitalist service. I have consulted with Nephrology, Dr. Wolfe. She requests 2 amps of sodium bicarb and will arrange dialysis for this patient. Plan has been discussed with the patient voiced understanding and agreement with it. - Data Points Laboratory Results: Laboratory Results 12/31/16 14:40 12/31/16 14:40 12/31/16 12/31/16 12/31/16 14:40 14:40 14:40 WBC 6.29 10^3/uL 10^3/uL (3.80-9.50) RBC 2.22 10^6/uL L 10^6/uL (4.40-6.38) Hgb 7.1 g/dL L g/dL (13.7-17.5) Hct 21.9 % L % (40.0-51.0) MCV 98.6 fL fL (81.5-99.8) MCH 32.0 pg pg (27.9-34.1) MCHC 32.4 g/dL g/dL (32.4-36.7) RDW 15.2 % % (11.5-15.2) Plt Count 133 10^3/uL L 10^3/uL (150-400) MPV 10.9 fL fL (8.7-11.7) Neut % (Auto) 67.4 % % (39.3-74.2) Lymph % (Auto) 16.7 % % (15.0-45.0) Wallace % (Auto) 6.2 % % (4.5-13.0) Eos % (Auto) 8.6 % H % (0.6-7.6) Baso % (Auto) 0.6 % % (0.3-1.7) Nucleat RBC Rel Count 0.0 % % (0.0-0.2) Absolute Neuts (auto) 4.24 10^3/uL 10^3/uL (1.70-6.50) Absolute Lymphs (auto) 1.05 10^3/uL 10^3/uL (1.00-3.00) Absolute Monos (auto) 0.39 10^3/uL 10^3/uL (0.30-0.80) Absolute Eos (auto) 0.54 10^3/uL H 10^3/uL (0.03-0.40) Absolute Basos (auto) 0.04 10^3/uL 10^3/uL (0.02-0.10) Absolute Nucleated RBC 0.00 10^3/uL 10^3/uL (0-0.01) Immature Gran % 0.5 % % (0.0-1.1) Immature Gran # 0.03 10^3/uL 10^3/uL (0.00-0.10) Sodium 140 mEq/L mEq/L (134-144) Potassium 6.4 mEq/L H* mEq/L (3.5-5.2) Chloride 101 mEq/L mEq/L (97-110) Carbon Dioxide 14 mEq/l L mEq/l (22-31) Anion Gap 25 mEq/L H mEq/L (8-16) BUN 123 mg/dL H* mg/dL (7-23) Creatinine 14.7 mg/dL H* mg/dL (0.7-1.3) Estimated GFR 3 Glucose 122 mg/dL H mg/dL (70-100) Calcium 7.6 mg/dL L mg/dL (8.5-10.4) Phosphorus Pending Departure - Departure Disposition: [facility] Inpatient Acute Clinical Impression: End stage renal disease Anemia Qualifiers: Anemia type: unspecified type Qualified Code(s): D64.9 - Anemia, unspecified Condition: Fair
[2016-12-31 15:26] LABS: ANION GAP 25 mEq/L (8-16); CALCIUM 7.6 mg/dL (8.5-10.4); CARBON DIOXIDE 14 mEq/l (22-31); CHLORIDE 101 mEq/L (97-110); GLUCOSE 122 mg/dL (70-100); SODIUM 140 mEq/L (134-144)
[2016-12-31 15:47] LABS: GLOMERULAR FILTRATION RATE 3
[2016-12-31 15:48] LABS: POTASSIUM 6.4 mEq/L (3.5-5.2)
[2016-12-31 15:49] LABS: CREATININE 14.7 mg/dL (0.7-1.3)
[2016-12-31] MEDS ORDERED: ONDANSETRON DISINTEGRATING 4 MG TAB PO PRN (15:59)
[2016-12-31] MEDS ORDERED: ACETAMINOPHEN 325 MG TAB PO PRN (15:59)
[2016-12-31] MEDS ORDERED: ONDANSETRON 4 MG/2 ML VIAL IVP PRN (15:59)
[2016-12-31] MEDS ORDERED: SODIUM BICARBONATE 50 MEQ/50 ML SYR IVP ONE ×2 (16:06)
[2016-12-31] MEDS ORDERED: NA BICARBONATE 50 MEQ/50 ML VIAL ONE (16:12)
[2016-12-31] MEDS ORDERED: NITROGLYCERIN 0.4 MG BTL SL PRN (16:34)
--- NOTE | 2016-12-31 17:24 | GHP ---
[f rep st] HISTORY AND PHYSICAL DATE OF ADMISSION: 12/31/2016 CHIEF COMPLAINT: Diarrhea, end-stage renal disease, hyperkalemia. HISTORY OF PRESENT ILLNESS: The patient is a 66-year-old gentleman history of end stage renal is renal disease without access to outpatient dialysis, coronary artery disease and history of GI bleed. Last dialyzed a week ago. He is presenting today with diarrhea starting yesterday, which is typical of when he needs dialysis. Also complains of fatigue and leg swelling. He denies any dizziness, lightheadedness. No fevers, chills, or sweats. No chest pain or shortness of breath. No pruritus or gum bleeding. No hematochezia or hematemesis. He has not filled his prescriptions since last visit of Ev-Peyton or Protonix. Patient is complaining of skin changes of his right ankle for the past 2 or 3 months. He was prescribed a cream here about a month ago and has been using it twice a day. He denies any cramping or pain in that leg or foot. Denies any numbness or tingling. REVIEW OF SYSTEMS: I completed a 10-point review of systems, negative except as noted in HPI. PAST MEDICAL HISTORY: End-stage renal disease without access to outpatient dialysis, coronary artery disease, GI bleed while on Plavix, GERD, anemia of chronic disease, esophagitis, hypertension. PAST SURG HISTORY: denies FAMILY HISTORY: Coronary artery disease. Mother with a stroke. Brother with cirrhosis secondary to alcohol, hypertension. SOCIAL HISTORY: Lives here in [place]. Works at [employer]. Denies alcohol tobacco or illicits. ALLERGIES: No known drug allergies. HOME MEDICATIONS: Ev-Peyton, Lipitor 40 daily, Norvasc 10, sodium bicarb 1300 daily, Protonix 40 mg daily, nitroglycerin as needed, Toprol 100 mg daily, hydralazine 50 p.o. daily, calcium carbonate 500 mg p.o. t.i.d. meals. PHYSICAL EXAMINATION: VITAL SIGNS: Temperature 36.5, blood pressure 134/61, heart rate is 58, respirations 16, 97% on room air. GENERAL: Well-appearing male, lying in bed, in no acute distress. Mildly fatigued. HEENT: PERRLA. EOMI. Oropharynx clear. CV: Regular rate and rhythm. LUNGS: Clear to auscultation bilaterally. ABDOMEN: Soft, nontender, nondistended. Positive bowel sounds. : No suprapubic tenderness. MUSCULOSKELETAL: 5/5 upper lower extremity strength. Right upper chest dialysis catheter without signs of infection. SKIN: Chronic venous stasis changes of right ankle. There is no evidence of infection currently. Does have palpable pedal pulses. NEURO: Normal sensation of his bilateral feet and toes. Two through 12 intact. PSYCH: Alert and oriented x3. Very pleasant. LABORATORY DATA: WBC 7.1, hemoglobin is 21, platelets 133. Sodium 140, potassium 6.4, chloride 101, carbon dioxide 14, BUN 123, creatinine 14.7, glucose 122, calcium 7.6. Phos is pending. EKG: Mild PT-waves anterior leads, this is unchanged from prior. ASSESSMENT AND PLAN: 1. Hyperkalemia, potassium is 6.4, no evidence of acute EKG changes. We will admit to PTU for telemetry. We will dose Kayexalate tonight if not getting dialysis. 2. Symptomatic uremia. BUN is 23 with creatinine 14.7, we will discuss with Renal in terms of timing of dialysis. 3. Hypocalcemia. Continue Tums. 4. Gastroesophageal reflux disease. Continue Protonix, but has not filled the script recently. 5. End-stage renal disease without access to outpatient dialysis. We will continue Ev-Peyton here. 6. Coronary artery disease. Discontinue statin and beta-bonifacio. No Plavix with history of recurrent gastrointestinal bleeds. 7. Benign hypertension. Continue home medications. 8. Mild bradycardia. We will reduce dose of metoprolol to 50 from 100. 9. History of recurrent gastrointestinal bleeds with duodenal stricture. Continue Protonix. 10. Anemia of renal disease. H and H are stable today. May need transfusion with dialysis tomorrow. Check his type and screen. 11. Metabolic anion gap acidosis secondary to end-stage renal disease with dose of sodium bicarb here in the emergency room. We will continue home supplementation. 12. Diet: Renal. 13. Deep venous thrombosis prophylaxis. Low risk, ambulatory. 14. Patient warrants inpatient admission given acute uremia. 15. Right ankle venous stasis changes: No evidence of acute infection. We will have Wound Care evaluate. Has palpable pulses, normal sensation to touch. /[id number]/MODL MTDD
[2016-12-31] MEDS: CALCIUM CARBONATE 500 MG CHEWABLE TAB PO SCH (17:58)
[2016-12-31] MEDS ORDERED: SODIUM POLY SULF 15 GM/60 ML BOTTLE PO ONE (18:29)
--- NOTE | 2016-12-31 19:47 | PDCONSULT ---
[facility] Hand Note: Assessment/Plan: ESRD: pt without benefits to get outpatient dialysis. - Will do HD tonight. - Will repeat HD again tomorrow afternoon. - Pt to return to ER prn emergent dialysis needs (worsening dyspnea, severe volume overload, hyperkalemia). Hyperkalemia: Will modulate on HD. Metabolic acidosis: will modulate on HD. Anemia: Hgb 7.1. Would recommend transfusing one unit PRBCs while on HD tomorrow. Thank you for the interesting consult. Nephrology will continue to follow, please call if you have any additional questions or concerns. H & P Stated Complaint: Dialysis. Time Seen by Provider: 12/31/16 14:27 HPI/ROS: HPI: Mr. Walton is a 66 yo M with h/o ESRD who lacks benefits to get outpatient dialysis who presents to ER for dialysis. Pt was last dialyzed last week. He states that he feels well but was starting to get diarrhea again, which signals to him that he needs dialysis. He has a little swelling in his legs. He denies any dyspnea or chest pain. ROS: Positive per HPI, rest of 10-point ROS negative 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 Exam Limitations: No limitations - Personal History Tetanus Vaccine Date: 2010 - Medical/Surgical History Hx Asthma: No Hx Chronic Respiratory Disease: No Hx Diabetes: No Hx Cardiac Disease: Yes Hx Renal Disease: Yes Hx Cirrhosis: No Hx Alcoholism: No Hx HIV/AIDS: No Hx Splenectomy or Spleen Trauma: No Other PMH: gout, htn, hernia, anemia, cad, esophagitis, gastric ulcer, renal failure, dialysis, heart stent, shingles - Family History Significant Family History: No pertinent family hx - Social History Smoking Status: Former smoker - Physical Exam Exam: General: alert and oriented, no acute distress Eyes; EOMI, PERRL OP: Clear, MMM Neck: supple, no thyromegaly CV: RRR, +2/4 radial and dorsalis pedis pulses, +1 edema BLE Resp: CTA bilat, nonlabored respirations on RA Abd: soft, NT/ND Neuro: CN II-XII grossly intact, no asterixis Psych: cooperative, appropriate mood and affect Skin: C/D/I, no rash Access: R IJ tunneled catheter Constitutional: Initial Vital Signs Temperature (C) 36.5 C 12/31/16 14:18 Heart Rate 59 L 12/31/16 14:18 Respiratory Rate 16 12/31/16 14:18 Blood Pressure 134/61 H 12/31/16 14:18 O2 Sat (%) 97 12/31/16 14:18 O2 Delivery Mode Room Air Allergies/Adverse Reactions: No Known Allergies Allergy (Verified 12/24/16 14:01) Home Medications: Medication Instructions Recorded Atorvastatin Calcium [Lipitor 40 80 mg PO DAILY 10/30/16 mg (*)] Metoprolol Succinate Xr [Toprol Xl 100 mg PO DAILY 10/30/16 100 mg (*)] Nitroglycerin [Nitrostat 0.4 mg 0.4 mg SL AD PRN 10/30/16 (*)] Sodium Bicarbonate [Na Bicarb] 1,300 mg PO DAILY 10/30/16 Vit B Cmplx 3/Folic AC/C/Biot 1 each PO DAILY 10/30/16 [Ev-Peyton Rx Tablet] amLODIPine BESYLATE [Norvasc 10 mg 10 mg PO DAILY 10/30/16 (*)] Calcium Carbonate [Tums 500MG (*)] 500 mg PO TIDMEAL #90 tab.chew 11/01/16 Hydralazine HCl 50 mg PO DAILY 12/03/16 Pantoprazole Sodium [Protonix 40mg 40 mg PO DAILY 12/03/16 (*)] Lab and Imaging 12/31/16 14:40 12/31/16 14:40 WBC 6.29 10^3/uL (3.80-9.50) 12/31/16 14:40 RBC 2.22 10^6/uL (4.40-6.38) L 12/31/16 14:40 Hgb 7.1 g/dL (13.7-17.5) L 12/31/16 14:40 Hct 21.9 % (40.0-51.0) L 12/31/16 14:40 MCV 98.6 fL (81.5-99.8) 12/31/16 14:40 MCH 32.0 pg (27.9-34.1) 12/31/16 14:40 MCHC 32.4 g/dL (32.4-36.7) 12/31/16 14:40 RDW 15.2 % (11.5-15.2) 12/31/16 14:40 Plt Count 133 10^3/uL (150-400) L 12/31/16 14:40 MPV 10.9 fL (8.7-11.7) 12/31/16 14:40 Neut % (Auto) 67.4 % (39.3-74.2) 12/31/16 14:40 Lymph % (Auto) 16.7 % (15.0-45.0) 12/31/16 14:40 Nobles % (Auto) 6.2 % (4.5-13.0) 12/31/16 14:40 Eos % (Auto) 8.6 % (0.6-7.6) H 12/31/16 14:40 Baso % (Auto) 0.6 % (0.3-1.7) 12/31/16 14:40 Nucleat RBC Rel Count 0.0 % (0.0-0.2) 12/31/16 14:40 Absolute Neuts (auto) 4.24 10^3/uL (1.70-6.50) 12/31/16 14:40 Absolute Lymphs (auto) 1.05 10^3/uL (1.00-3.00) 12/31/16 14:40 Absolute Monos (auto) 0.39 10^3/uL (0.30-0.80) 12/31/16 14:40 Absolute Eos (auto) 0.54 10^3/uL (0.03-0.40) H 12/31/16 14:40 Absolute Basos (auto) 0.04 10^3/uL (0.02-0.10) 12/31/16 14:40 Absolute Nucleated RBC 0.00 10^3/uL (0-0.01) 12/31/16 14:40 Immature Gran % 0.5 % (0.0-1.1) 12/31/16 14:40 Immature Gran # 0.03 10^3/uL (0.00-0.10) 12/31/16 14:40 Sodium 140 mEq/L (134-144) 12/31/16 14:40 Potassium 6.4 mEq/L (3.5-5.2) H* 12/31/16 14:40 Chloride 101 mEq/L (97-110) 12/31/16 14:40 Carbon Dioxide 14 mEq/l (22-31) L 12/31/16 14:40 Anion Gap 25 mEq/L (8-16) H 12/31/16 14:40 BUN 123 mg/dL (7-23) H* 12/31/16 14:40 Creatinine 14.7 mg/dL (0.7-1.3) H* 12/31/16 14:40 Estimated GFR 3 12/31/16 14:40 Glucose 122 mg/dL (70-100) H 12/31/16 14:40 Calcium 7.6 mg/dL (8.5-10.4) L 12/31/16 14:40 Phosphorus 6.6 mg/dL (2.5-4.5) H 12/31/16 14:40 Patient ABO/Rh O POSITIVE 12/31/16 17:04 Antibody Screen NEGATIVE 12/31/16 17:04
[2016-12-31] MEDS ORDERED: NS 1,000 ML IV PRN (19:50)
[2016-12-31] MEDS ORDERED: [UNRECOGNIZED DRUG - REMARK] MISC ONE (21:00)
[2017-01-01] MEDS ORDERED: HEPARIN 50,000 UNIT/10 ML VIAL ONE (00:17)
[2017-01-01 04:17] LABS: HEMATOCRIT 19.9 % (40.0-51.0); MEAN CELL HEMOGLOBIN 31.9 pg (27.9-34.1); MEAN CELL HEMOGLOBIN CONCENTR. 33.2 g/dL (32.4-36.7); MEAN CELL VOLUME 96.1 fL (81.5-99.8); RED BLOOD CELL COUNT 2.07 10^6/uL (4.40-6.38)
[2017-01-01 04:18] LABS: HEMOGLOBIN 6.6 g/dL (13.7-17.5)
[2017-01-01 04:38] LABS: ALBUMIN 3.6 g/dL (3.5-5.0); ANION GAP 15 mEq/L (8-16); CALCIUM 7.8 mg/dL (8.5-10.4); CARBON DIOXIDE 23 mEq/l (22-31); CHLORIDE 100 mEq/L (97-110); GLOMERULAR FILTRATION RATE 6; GLUCOSE 125 mg/dL (70-100); POTASSIUM 4.5 mEq/L (3.5-5.2); SODIUM 138 mEq/L (134-144)
[2017-01-01 04:48] LABS: CREATININE 8.5 mg/dL (0.7-1.3)
[2017-01-01] MEDS: CALCIUM CARBONATE 500 MG CHEWABLE TAB PO SCH ×3 (08:17→18:25)
[2017-01-01] MEDS: PANTOPRAZOLE SODIUM 40 MG TAB PO SCH (08:17)
[2017-01-01] MEDS: SODIUM BICARBONATE 650 MG TAB PO SCH (08:17)
[2017-01-01] MEDS: ATORVASTATIN CALCIUM 40 MG TAB PO SCH (08:17)
[2017-01-01] MEDS: METOPROLOL SUCCINATE XR 50 MG TAB PO SCH (08:18)
[2017-01-01] MEDS: VITAMIN B COMPLEX 1 EA CAP/TAB PO SCH (08:20)
[2017-01-01] MEDS ORDERED: VITAMIN B COMPLEX PO SCH (09:00)
[2017-01-01] MEDS ORDERED: BIOTIN PO SCH (09:00)
[2017-01-01] MEDS ORDERED: FOLIC ACID PO SCH (09:00)
[2017-01-01] MEDS ORDERED: ASCORBIC ACID PO SCH (09:00)
--- NOTE | 2017-01-01 09:12 | SOAPPROG ---
SOAP Progress Note Assessment/Plan: Assessment:Plan: ESRD-stable overnite -Hd again today Hyperkalemia-resolved Dispo-likely home after dialysis today 01/01/17 09:10 Subjective: no complaints, slept well, eating breakfast Objective: Vital Signs Temp Pulse Resp BP Pulse Ox 36.9 C 58 L 18 139/69 H 95 01/01/17 07:31 01/01/17 07:31 01/01/17 07:31 01/01/17 07:31 01/01/17 07:31 Laboratory Results 01/01/17 03:41 01/01/17 03:41 12/31/16 01/01/17 01/02/17 05:59 05:59 05:59 Intake Total 750 Balance 750 Physical Exam - Physical Exam General Appearance: alert, no apparent distress, thin EENT: normal ENT inspection Neck: normal inspection Respiratory: lungs clear, normal breath sounds, No respiratory distress Cardiac/Chest: regular rate, rhythm Abdomen: normal bowel sounds, non-tender Extremities: No swelling ICD10 Worksheet Patient Problems: Problems Problem Status Onset Anemia Acute End stage renal disease Acute Abdominal pain Acute Acute renal failure Acute Acute upper GI bleed Acute Anemia associated with acute blood loss Acute Chronic renal failure Acute Diarrhea Acute Hyperkalemia Acute Hyperkalemia Acute Hyperkalemia Acute Hyperkalemia Acute Hyperkalemia Acute Hyperkalemia Acute Hyperkalemia Acute Hyperkalemia Acute Hypertension Acute Hypocalcemia Acute Kidney failure Acute Kidney failure Acute Kidney failure Acute Metabolic acidosis Acute Renal failure Acute Shingles (herpes zoster) polyneuropathy Acute Uremia Acute Uremia Acute
--- NOTE | 2017-01-01 10:15 | WOCRNPDOC ---
WOCRN Advanced Assessment Note - Skin Integrity Problem, Advanced Assess Right Posterior Lower Leg Venous Stasis Ulcer Dressing Type: Open to Air Exudate Amount: Scant Exudate Characteristic(s): Serous Joan Wound Tissue: Hemosiderin Staining, Venous Dermatitis, Crusted Wound Bed Color: [place] Wound Bed Constitution: Smooth Tissue Site Measurement - Head-to-Toe Length X Width X Depth (cm): 12x7x0 Extremity Temperature: Warm Peripheral Edema Location & Description: non pitting mild around ankles Skin Integrity Problem Comment: Right leg with hemosidering staining and tiny (< 0.5x0.5x0.1 openings) scattered through the larger area of dermatitis. Left leg with very minimal changes. Discussed compression with patient and NINO. Care notes on leg vein disease provided. Bilateral calf measure 30.5 and medium compression of D spandigrip will be sent down to RN with moisturizer and Biotane Ag dressings. Wound care will round again in Monday 01/08. Discussed plan with Paty MILAN.
--- NOTE | 2017-01-01 15:09 | HOSPPROG ---
Hospitalist Progress Note Assessment/Plan: * end-stage renal disease without dialysis benefits * Dialysis tonight again * Will DC tomorrow * hyperkalemia * Resolving * history of GERD/peptic ulcers * anemia * coronary artery disease Subjective: No complaints. Doesnt want blood since he is feeling fine Objective: Vital Signs Temp Pulse Resp BP Pulse Ox 36.9 C 64 15 138/67 H 94 01/01/17 12:00 01/01/17 12:00 01/01/17 12:00 01/01/17 12:00 01/01/17 12:00 Laboratory Results 01/01/17 03:41 01/01/17 03:41 12/31/16 01/01/17 01/02/17 05:59 05:59 05:59 Intake Total 750 Balance 750 Tele personally viewed interpreted normal sinus rhythm - Physical Exam Constitutional: no apparent distress, appears nourished, not in pain Eyes: anicteric sclera, EOMI Ears, Nose, Mouth, Throat: moist mucous membranes, hearing normal, ears appear normal Respiratory: no respiratory distress Skin: warm Neurologic: AAOx3 Psychiatric: interacting appropriately, not anxious, not encephalopathic, thought process linear ICD10 Worksheet Patient Problems: Problems Problem Status Onset Anemia Acute End stage renal disease Acute Abdominal pain Acute Acute renal failure Acute Acute upper GI bleed Acute Anemia associated with acute blood loss Acute Chronic renal failure Acute Diarrhea Acute Hyperkalemia Acute Hyperkalemia Acute Hyperkalemia Acute Hyperkalemia Acute Hyperkalemia Acute Hyperkalemia Acute Hyperkalemia Acute Hyperkalemia Acute Hypertension Acute Hypocalcemia Acute Kidney failure Acute Kidney failure Acute Kidney failure Acute Metabolic acidosis Acute Renal failure Acute Shingles (herpes zoster) polyneuropathy Acute Uremia Acute Uremia Acute
[2017-01-02 05:28] VITALS: O2SAT 95
[2017-01-02 07:46] VITALS: BP 150/74; PULSE 56; RESP 14; TEMP 98.5
[2017-01-02] MEDS: SODIUM BICARBONATE 650 MG TAB PO SCH (08:34)
[2017-01-02] MEDS: CALCIUM CARBONATE 500 MG CHEWABLE TAB PO SCH (08:34)
[2017-01-02] MEDS: METOPROLOL SUCCINATE XR 50 MG TAB PO SCH (08:34)
[2017-01-02] MEDS: ATORVASTATIN CALCIUM 40 MG TAB PO SCH (08:34)
[2017-01-02] MEDS: PANTOPRAZOLE SODIUM 40 MG TAB PO SCH (08:34)
[2017-01-02] MEDS: VITAMIN B COMPLEX 1 EA CAP/TAB PO SCH (08:34)
[2017-01-02] MEDS ORDERED: METOPROLOL SUCCINATE XR 25 MG TAB PO SCH (09:00)
--- NOTE | 2017-01-02 09:41 | PDDCSUM ---
Discharge Summary Discharge Summary: Hospital course 66 yo male with poor health access and ESRD admitted via the ED for sx's of ESRD , hyperkalemia, and requiring HD. Received HD x 2. Volume is better. Sx's are better. HR was low and Metoprolol decreased to 25mg po daily. Will f/o with the [facility]. Still does not have access to HD. Return to the ED for needs as needed. DDX: * end-stage renal disease without dialysis benefits * hyperkalemia * Resolving * history of GERD/peptic ulcers * anemia * coronary artery disease Exam: VSS NAD AAOX3 MMM NO JVD RRR CTAB S/NT/ND NO LE EDEMA NO FOCAL WEAKNESS MOOD APPROPRIATE DX MEDS: SEE MED REC. New meds/changes: Metoprolol decreased per above F/U: with PCP per above. total time spent on discharge is 35 minutes.
== END 2017-01-02 11:27 | disposition home or self-care (01) | DRG 640 ==
LOC: INTOOBSV 15:57 → OBSVTOIN 15:59 → F2W 17:36
PROVIDERS: ADMIT Internal Medicine; ATTEND Internal Medicine
PROC: 5A1D60Z (ICD-10-PCS; principal; 2016-12-31)
DX: E87.5 Hyperkalemia (principal); I12.0 Hypertensive chronic kidney disease with stage 5 chronic kidney disease or end stage renal disease; N18.6 End stage renal disease; D63.1 Anemia in chronic kidney disease; K21.9 Gastro-esophageal reflux disease without esophagitis; E83.51 Hypocalcemia
CPT/HCPCS: G0378; J1644

== ENCOUNTER 2017-01-07 11:59 | Inpatient (IN) | payer MEDICAID, OTHER ==
[2017-01-07 13:26] LABS: % IMMATURE GRANULYOCYTES 0.4 % (0.0-1.1); ABSOLUTE IMMATURE GRANULOCYTES 0.02 10^3/uL (0.00-0.10); ADD DIFF? NO; ADD MORPH? YES; ADD SCAN? NO; ATYPICAL LYMPHOCYTE FLAG 0 (0-99); FRAGMENT RBC FLAG 0 (0-99); LEFT SHIFT FLG 0 (0-99); LIPEMIA HEMOLYSIS FLAG 80 (0-99); MEAN CELL HEMOGLOBIN 32.5 pg (27.9-34.1); MEAN CELL HEMOGLOBIN CONCENTR. 32.4 g/dL (32.4-36.7); MEAN CELL VOLUME 100.5 fL (81.5-99.8); MEAN PLATELET VOLUME 10.9 fL (8.7-11.7); PLATELET CLUMPS FLAG 0 (0-99); PLATELET COUNT 123 10^3/uL (150-400); RED BLOOD CELL COUNT 2.09 10^6/uL (4.40-6.38)
[2017-01-07 13:30] LABS: HEMOGLOBIN 6.8 g/dL (13.7-17.5)
--- NOTE | 2017-01-07 13:37 | EDPHY ---
H & P Time Seen by Provider: 01/07/17 13:35 HPI/ROS: CHIEF COMPLAINT: Needs dialysis HISTORY OF PRESENT ILLNESS: This patient is a 57 year old male with history of end stage renal disease presenting today for dialysis, as he does not have access to outpatient dialysis. Last admitted and dialyzed 01/01/17. He complains today of 3-4 episodes of watery diarrhea, beginning last night. This is typical of when he needs dialysis. He denies abdominal pain, chest pain, shortness of breath, fever , or other associated symptoms. No hematochezia or hematemesis. REVIEW OF SYSTEMS: Constitutional: No fever, no chills Eyes: No visual changes ENT: No sore throat Respiratory: No cough, no shortness of breath Cardiac: No chest pain Gastrointestinal: No nausea, no vomiting, no abdominal pain Genitourinary: No hematuria, no dysuria Musculoskeletal: Right-sided lower extremity swelling. No leg pain Skin: No rash Neurological: No headache, no numbness, no weakness Psychiatric: No depression Past Medical/Surgical History: Renal failure (dialysis) Shingles Gout Hypertension Anemia Coronary artery disease (stent) Esophagitis Gastric ulcer Hernia Social History: Lives in [place]. Former smoker. Denies alcohol or illicit drug use. Smoking Status: Former smoker Physical Exam: General Appearance: Alert, no distress Eyes: Pupils equal and round, no conjunctival pallor or injection ENT, Mouth: Mucous membranes moist Neck: Normal inspection Respiratory: Lungs are clear to auscultation Cardiovascular: Regular rate and rhythm Gastrointestinal: Abdomen is soft and non- tender Neurological: A&O, nonfocal, normal gait Skin: Warm and dry, no rash Extremities: Mild right pedal edema. Nontender Psychiatric: Mood and affect normal Constitutional: Initial Vital Signs Temperature (C) 36.6 C 01/07/17 12:11 Heart Rate 61 01/07/17 12:11 Respiratory Rate 18 01/07/17 12:11 Blood Pressure 121/65 H 01/07/17 12:11 O2 Sat (%) 97 01/07/17 12:11 O2 Delivery Mode Room Air Allergies/Adverse Reactions: No Known Allergies Allergy (Verified 01/07/17 12:13) Home Medications: Medication Instructions Recorded Atorvastatin Calcium [Lipitor 40 80 mg PO DAILY 10/30/16 mg (*)] Nitroglycerin [Nitrostat 0.4 mg 0.4 mg SL AD PRN 04/25/17 (*)] Sodium Bicarbonate [Na Bicarb] 1,300 mg PO DAILY 10/30/16 amLODIPine BESYLATE [Norvasc 10 mg 10 mg PO DAILY 10/30/16 (*)] Calcium Carbonate [Tums 500MG (*)] 500 mg PO TIDMEAL #90 tab.chew 11/01/16 Hydralazine HCl 50 mg PO DAILY 12/03/16 Pantoprazole Sodium [Protonix 40mg 40 mg PO DAILY 12/03/16 (*)] Metoprolol Succinate Xr [Toprol Xl 25 mg PO DAILY #30 tab 01/02/17 25 mg (*)] Folic Acid/Vit B Com W/C 1 each PO DAILY 01/07/17 [Nephro-Peyton Rx (RX)] Medical Decision Making - Diagnostics EKG Interpretation: EKG interpreted by me reveals normal sinus rhythm, no ST or T segment changes. Impression: Normal EKG ED Course/Re-evaluation: This patient is a 66 year old male presenting because he needs his routine dialysis. I-STAT reveals potassium 6.8. Insulin/glucose, Kayexalate and calcium gluconate IV ordered for severe hyperkalemia. Stat EKG reveals no evidence of hyperkalemia. This patient likely tolerates hyperkalemia well given his inconsistent dialysis. 14:[address] Gil, catcher helper. He will arrange for emergent dialysis. 14:10 consulted with hospitalist service. Dr. Conway accepts admission. - Data Points Laboratory Results: Laboratory Results 01/07/17 13:12 01/07/17 13:12 01/07/17 01/07/17 01/07/17 13:12 13:12 13:06 WBC 5.49 10^3/uL 10^3/uL (3.80-9.50) RBC 2.09 10^6/uL L 10^6/uL (4.40-6.38) Hgb 6.8 g/dL L g/dL (13.7-17.5) POC Hgb 7.1 gm/dL L gm/dL (13.7-17.5) Hct 21.0 % L % (40.0-51.0) POC Hct 21 % L % (40-51) MCV 100.5 fL H fL (81.5-99.8) MCH 32.5 pg pg (27.9-34.1) MCHC 32.4 g/dL g/dL (32.4-36.7) RDW 15.0 % % (11.5-15.2) Plt Count 123 10^3/uL L 10^3/uL (150-400) MPV 10.9 fL fL (8.7-11.7) Neut % (Auto) 64.5 % % (39.3-74.2) Lymph % (Auto) 16.0 % % (15.0-45.0) [place] % (Auto) 6.7 % % (4.5-13.0) Eos % (Auto) 11.3 % H % (0.6-7.6) Baso % (Auto) 1.1 % % (0.3-1.7) Nucleat RBC Rel Count 0.0 % % (0.0-0.2) Absolute Neuts (auto) 3.54 10^3/uL 10^3/uL (1.70-6.50) Absolute Lymphs (auto) 0.88 10^3/uL L 10^3/uL (1.00-3.00) Absolute Monos (auto) 0.37 10^3/uL 10^3/uL (0.30-0.80) Absolute Eos (auto) 0.62 10^3/uL H 10^3/uL (0.03-0.40) Absolute Basos (auto) 0.06 10^3/uL 10^3/uL (0.02-0.10) Absolute Nucleated RBC 0.00 10^3/uL 10^3/uL (0-0.01) Immature Gran % 0.4 % % (0.0-1.1) Immature Gran # 0.02 10^3/uL 10^3/uL (0.00-0.10) Platelet Estimate DECREASED L (ADEQ) Elliptocytes 1+ H Schistocytes 1+ H Smear Review By Stephanie MARCH MD POC Sodium 140 mEq/L mEq/L (134-144) Sodium 144 mEq/L mEq/L (134-144) POC Potassium 6.8 mEq/L H* mEq/L (3.3-5.0) Potassium 7.0 mEq/L H* mEq/L (3.5-5.2) POC Chloride 104 mEq/L mEq/L (97-110) Chloride 105 mEq/L mEq/L (97-110) Carbon Dioxide 13 mEq/l L mEq/l (22-31) Anion Gap 26 mEq/L H mEq/L (8-16) POC BUN Pending BUN 142 mg/dL H* mg/dL (7-23) Creatinine 16.5 mg/dL H* mg/dL (0.7-1.3) POC Creatinine 18.7 mg/dL H* mg/dL (0.7-1.3) Estimated GFR 3 Glucose 107 mg/dL H mg/dL (70-100) POC Glucose 103 mg/dL H mg/dL (70-100) Calcium 6.8 mg/dL L mg/dL (8.5-10.4) Medications Given: Discontinued Medications Calcium Gluconate (Calcium Gluconate) 1 gm IVP EDNOW ONE Stop: 01/07/17 13:46 Last Admin: 01/07/17 14:20 Dose: 1 gm Dextrose (Dextrose 50% Syringe) 25 gm IVP EDNOW ONE Stop: 01/07/17 13:47 Last Admin: 01/07/17 14:27 Dose: 25 gm Insulin Human Regular (Humulin R) 10 unit IVP EDNOW ONE Stop: 01/07/17 13:47 Last Admin: 01/07/17 14:26 Dose: 10 units Sodium Polystyrene Sulfonate (Kayexalate) 30 gm PO EDNOW ONE Stop: 01/07/17 13:46 Last Admin: 01/07/17 14:28 Dose: Not Given Point of Care Test Results: 01/07/17 13:06 POC Sodium 140 POC Potassium 6.8 H* POC Chloride 104 POC Creatinine 18.7 H* POC Glucose 103 H Departure - [facility] Clinical Impression: End stage renal disease, Hyperkalemia Condition: Fair Report Scribed for: Filomena Worley Report Scribed by: Mely Noble Date of Report: 01/07/17 Time of Report: 13:49 Physician Review and Approval Statement: 01/07/17 13:49 Portions of this note were transcribed by a emergency medicine medical director. I personally performed a history, physical exam, medical decision making, and confirmed accuracy of information the transcribed note.
[2017-01-07] MEDS ORDERED: SODIUM POLY SULF 15 GM/60 ML BOTTLE PO ONE (13:45)
[2017-01-07] MEDS ORDERED: CALCIUM GLUC 10% 1 GM/10 ML VIAL IVP ONE (13:45)
[2017-01-07] MEDS ORDERED: D50W 25 GM/50 ML SYR IVP ONE (13:46)
[2017-01-07] MEDS ORDERED: INSULIN REGULAR HUMAN 100 UNIT/ML IVP ONE (13:46)
[2017-01-07] MEDS ORDERED: D50W 25 GM/50 ML VIAL ONE (14:01)
[2017-01-07 14:02] LABS: GLOMERULAR FILTRATION RATE 3
[2017-01-07 14:03] LABS: CREATININE 16.5 mg/dL (0.7-1.3)
[2017-01-07 14:14] LABS: PLATELET ESTIMATE DECREASED (ADEQ)
[2017-01-07 14:19] LABS: ELLIPTOCYTES 1+; SCHISTOCYTES 1+
[2017-01-07 14:46] LABS: ANION GAP 26 mEq/L (8-16); CARBON DIOXIDE 13 mEq/l (22-31); CHLORIDE 105 mEq/L (97-110); GLUCOSE 107 mg/dL (70-100); SODIUM 144 mEq/L (134-144)
[2017-01-07 14:47] LABS: CALCIUM 6.8 mg/dL (8.5-10.4)
[2017-01-07] MEDS ORDERED: ONDANSETRON 4 MG/2 ML VIAL IVP PRN (15:07)
[2017-01-07] MEDS ORDERED: ACETAMINOPHEN 325 MG TAB PO PRN (15:07)
[2017-01-07] MEDS ORDERED: ONDANSETRON DISINTEGRATING 4 MG TAB PO PRN (15:07)
[2017-01-07] MEDS ORDERED: NITROGLYCERIN 0.4 MG BTL SL PRN (15:09)
--- NOTE | 2017-01-07 16:00 | GHP ---
[f rep st] HISTORY AND PHYSICAL DATE OF ADMISSION: 01/07/2017 CHIEF COMPLAINT: Feeling poorly. HISTORY OF PRESENT ILLNESS: This is a 66-year-old man who is undocumented on dialysis, who presents for emergent dialysis. He tells me he is having his normal symptoms of having high potassium which primarily include diarrhea. He has some occasional lower extremity cramps. He denies chest pain, shortness of breath, palpitations, nausea, vomiting. He tells me he has been eating well and taking all of his medications. PAST MEDICAL/SURGICAL HISTORY: 1. End-stage renal disease on hemodialysis. 2. Hypertension. 3. Coronary artery disease. 4. GI bleed while on Plavix. 5. GERD. 6. Anemia of chronic disease. 7. Esophagitis. 8. Hypertension. PAST SURGICAL HISTORY: Denies. MEDICATIONS: Please see medication reconciliation. ALLERGIES: No known drug allergies. FAMILY HISTORY: Coronary artery disease. His mother had a stroke. His brother had cirrhosis due t o alcohol and hypertension. SOCIAL HISTORY: He lives in [place]. He works at [employer]. He does not drink or smoke. REVIEW OF SYSTEMS: Ten-point review of systems is conducted and is negative except per HPI. PHYSICAL EXAM: VITAL SIGNS: Blood pressure 110/74, heart rate 55, respiration rate 16, saturating 98% on room air. Temperature is 36.5. GENERAL: Mr Walton is a pleasant man who appears c omfortable sitting in the hemodialysis chair in no acute distress. HEENT: Shows him to be normocep halic, atraumatic. CARDIOVASCULAR: Regular rate and rhythm. No murmurs, rubs, or gallops. CHEST: Shows a right tunneled catheter to be in place. PULMONARY: Lungs clear to auscultation bilateral ly. Does not have any increased work of breathing. ABDOMEN: Soft, nontender, nondistended. SKIN: No rash. : No Singh. NEUROLOGIC: Shows him to be alert and oriented x3. He is moving all ex tremities. PSYCHIATRIC: Shows normal mood and affect. LABORATORY DATA: Potassium is 7, creatinine is 16.5, bicarb is 13. Hemoglobin is 6.8, platelets ar e 123. DATA: 1. I discussed this with Dr. Worley, will admit to Med/Surg. 2. I personally viewed and interpreted the EKG. It shows sinus rhythm. There is no QRS widening, no peaked T-waves. IMPRESSION AND PLAN: A 66-year-old man presents for emergent dialysis. 1. Emergent dialysis: He has critical hyperkalemia. He is getting dialyzed currently. He did rec eive appropriate medications in the emergency department including calcium gluconate, insulin, dextr ose and Kayexalate. 2. Acidosis: This is due to his renal failure. He is on sodium bicarb. We will continue this. 3. Anemia: Would be due for transfusion. Will defer to Renal on this. 4. Coronary artery disease: Currently no chest pains. I will continue his cardiac medications. 5. Hypertension: It is controlled currently. Continue his antihypertensives. /[id number]/MODL
[2017-01-07] MEDS ORDERED: HEPARIN 50,000 UNIT/10 ML VIAL ONE (18:15)
--- NOTE | 2017-01-07 18:59 | SOAPPROG ---
SOEDY Progress Note Assessment/Plan: Assessment: 1. esrd without benefits: s/p hd earlier today for hyperK, will repeat again Tues. Does poorly with "standard" treatment times, therefore needs consecutive short treatments to effectively treat K. 2. HyperK: hd as above. 3. htn: cont meds, uf on hd 4. anemia: epo, transfuse as needed. Would do this on hd to minimize K, volume. Plan: 01/07/17 18:52 Subjective: Well known to our service, presented to ER today with K 7. Dialyzed urgently earlier today. Last hd was approx 1 week ago. Objective: Vital Signs Temp Pulse Resp BP Pulse Ox 36.5 C 53 L 12 162/81 H 96 01/07/17 14:44 01/07/17 17:53 01/07/17 17:53 01/07/17 17:53 01/07/17 17:53 01/06/17 01/07/17 01/08/17 05:59 05:59 05:59 Intake Total 125 Balance 125 Physical Exam - Physical Exam General Appearance: no apparent distress Respiratory: decreased breath sounds (at bases) Cardiac/Chest: regular rate, rhythm Extremities: pedal edema ICD10 Worksheet Patient Problems: Problems Problem Status Onset End stage renal disease Acute Hyperkalemia Acute Abdominal pain Acute Acute renal failure Acute Acute upper GI bleed Acute Anemia Acute Anemia associated with acute blood loss Acute Chronic renal failure Acute Diarrhea Acute Hyperkalemia Acute Hyperkalemia Acute Hyperkalemia Acute Hyperkalemia Acute Hyperkalemia Acute Hyperkalemia Acute Hyperkalemia Acute Hypertension Acute Hypocalcemia Acute Kidney failure Acute Kidney failure Acute Kidney failure Acute Metabolic acidosis Acute Renal failure Acute Shingles (herpes zoster) polyneuropathy Acute Uremia Acute Uremia Acute
[2017-01-07] MEDS ORDERED: EPOETIN ALFA 10,000 UNIT/ML VIAL SC SCH (19:00)
[2017-01-07] MEDS: CALCIUM CARBONATE 500 MG CHEWABLE TAB PO SCH (19:00)
[2017-01-07] MEDS: HEPARIN 5,000 UNIT/0.5 ML SYR SC SCH (21:13)
[2017-01-08 05:01] LABS: HEMATOCRIT 21.4 % (40.0-51.0); HEMOGLOBIN 7.2 g/dL (13.7-17.5); MEAN CELL HEMOGLOBIN CONCENTR. 33.6 g/dL (32.4-36.7); MEAN CELL VOLUME 95.1 fL (81.5-99.8); RED BLOOD CELL COUNT 2.25 10^6/uL (4.40-6.38); RED CELL DISTRIBUTION WIDTH 14.8 % (11.5-15.2)
[2017-01-08 05:46] LABS: ANION GAP 23 mEq/L (8-16); CALCIUM 7.2 mg/dL (8.5-10.4); CARBON DIOXIDE 21 mEq/l (22-31); CHLORIDE 101 mEq/L (97-110); GLOMERULAR FILTRATION RATE 5; GLUCOSE 110 mg/dL (70-100); POTASSIUM 4.7 mEq/L (3.5-5.2); SODIUM 145 mEq/L (134-144)
[2017-01-08 05:52] LABS: CREATININE 10.7 mg/dL (0.7-1.3)
[2017-01-08] MEDS: HEPARIN 5,000 UNIT/0.5 ML SYR SC SCH ×3 (06:11→21:13)
[2017-01-08] MEDS ORDERED: FOLIC ACID PO SCH (09:00)
[2017-01-08] MEDS ORDERED: BIOTIN PO SCH (09:00)
[2017-01-08] MEDS ORDERED: VITAMIN B COMPLEX PO SCH (09:00)
[2017-01-08] MEDS ORDERED: ASCORBIC ACID PO SCH (09:00)
[2017-01-08] MEDS ORDERED: NEPHROVITE FOLIC ACID/VIT B&C 1 TAB PO SCH (09:00)
[2017-01-08] MEDS: CALCIUM CARBONATE 500 MG CHEWABLE TAB PO SCH ×3 (10:13→19:26)
[2017-01-08] MEDS: PANTOPRAZOLE SODIUM 40 MG TAB PO SCH (10:14)
[2017-01-08] MEDS: ATORVASTATIN CALCIUM 40 MG TAB PO SCH (10:14)
[2017-01-08] MEDS: NEPHROVITE FOLIC ACID/VIT B&C 1 TAB PO SCH (10:14)
[2017-01-08] MEDS: SODIUM BICARBONATE 650 MG TAB PO SCH (10:14)
--- NOTE | 2017-01-08 11:12 | HOSPPROG ---
Hospitalist Progress Note Assessment/Plan: 66 yo M w esrd here for hd hyperkalemia: improved after initial rx no events tele anemia: 2/2 esrd give 1 unit packed cells in HD acidosis: improving after HD htn: continue meds dispo: inpt Subjective: case d/w dr b[place]. tele: no events (interp by me) Objective: Vital Signs Temp Pulse Resp BP Pulse Ox 37.2 C 62 18 124/62 H 93 01/08/17 08:00 01/08/17 08:00 01/08/17 08:00 01/08/17 08:00 01/08/17 08:00 Laboratory Results 01/08/17 04:16 01/08/17 04:16 01/07/17 01/08/17 01/09/17 05:59 05:59 05:59 Intake Total 345 Balance 345 - Physical Exam Constitutional: no apparent distress, appears nourished Eyes: PERRL, anicteric sclera Ears, Nose, Mouth, Throat: moist mucous membranes, hearing normal Cardiovascular: regular rate and rhythym, no murmur, rub, or gallop Respiratory: no respiratory distress, no rales or rhonchi Gastrointestinal: normoactive bowel sounds, soft, non-tender abdomen Genitourinary: no bladder fullness, No godoy in urethra Skin: warm, normal color Musculoskeletal: full muscle strength, no muscle tenderness Neurologic: AAOx3 ICD10 Worksheet Patient Problems: Problems Problem Status Onset End stage renal disease Acute Hyperkalemia Acute Abdominal pain Acute Acute renal failure Acute Acute upper GI bleed Acute Anemia Acute Anemia associated with acute blood loss Acute Chronic renal failure Acute Diarrhea Acute Hyperkalemia Acute Hyperkalemia Acute Hyperkalemia Acute Hyperkalemia Acute Hyperkalemia Acute Hyperkalemia Acute Hyperkalemia Acute Hypertension Acute Hypocalcemia Acute Kidney failure Acute Kidney failure Acute Kidney failure Acute Metabolic acidosis Acute Renal failure Acute Shingles (herpes zoster) polyneuropathy Acute Uremia Acute Uremia Acute
[2017-01-08] MEDS ORDERED: HEPARIN 50,000 UNIT/10 ML VIAL ONE (14:27)
[2017-01-08] MEDS ORDERED: CYCLOBENZAPRINE 10 MG TAB PO ONE (14:59)
[2017-01-08] MEDS: METOPROLOL SUCCINATE XR 25 MG TAB PO SCH (15:05)
--- NOTE | 2017-01-08 18:07 | SOAPPROG ---
JACQUELINE Progress Note Assessment/Plan: Assessment: 1. esrd without benefits: s/p hd again today, would dialyze again tomorrow to ensure adequate treatment of hyperK, especially in light of shorter treatments. Should be able to d/c after hd Thurs. 2. HyperK: hd again as above. 3. htn: cont meds, uf on hd 4. anemia: epo given, transfused on hd today. Plan: 01/07/17 18:52 01/08/17 18:05 Subjective: s/p hd earlier today with 1.6L uf. Had TYSON on hd, he feels this was very minor and possibly related to prbc txfusion during hd. Objective: Vital Signs Temp Pulse Resp BP Pulse Ox 37.1 C 63 18 150/78 H 93 01/08/17 16:00 01/08/17 16:00 01/08/17 16:00 01/08/17 16:00 01/08/17 16:00 Laboratory Results 01/08/17 04:16 01/08/17 04:16 01/07/17 01/08/17 01/09/17 05:59 05:59 05:59 Intake Total 345 240 Balance 345 240 Physical Exam - Physical Exam General Appearance: no apparent distress Respiratory: lungs clear (anteriorly) Cardiac/Chest: regular rate, rhythm (no rub) Extremities: pedal edema (none) ICD10 Worksheet Patient Problems: Problems Problem Status Onset End stage renal disease Acute Hyperkalemia Acute Abdominal pain Acute Acute renal failure Acute Acute upper GI bleed Acute Anemia Acute Anemia associated with acute blood loss Acute Chronic renal failure Acute Diarrhea Acute Hyperkalemia Acute Hyperkalemia Acute Hyperkalemia Acute Hyperkalemia Acute Hyperkalemia Acute Hyperkalemia Acute Hyperkalemia Acute Hypertension Acute Hypocalcemia Acute Kidney failure Acute Kidney failure Acute Kidney failure Acute Metabolic acidosis Acute Renal failure Acute Shingles (herpes zoster) polyneuropathy Acute Uremia Acute Uremia Acute
[2017-01-09 05:13] LABS: HEPATITIS B SURFACE ANTIBODY NEGATIVE (NEGATIVE)
[2017-01-09] MEDS: HEPARIN 5,000 UNIT/0.5 ML SYR SC SCH (06:31)
[2017-01-09 07:11] VITALS: RESP 16
--- NOTE | 2017-01-09 09:23 | SOAPPROG ---
JACQUELINE Progress Note Assessment/Plan: Assessment: 1. ESRD/Hyperkalemia Currently on HD; Stable 2. Anemia s/p transfusion 3. HTN Adequate control Likely DC today Plan: 01/09/17 09:21 01/09/17 10:19 Subjective: Feels good Objective: Vital Signs Temp Pulse Resp BP Pulse Ox 36.8 C 54 L 16 142/70 H 93 01/09/17 07:09 01/09/17 07:09 01/09/17 07:09 01/09/17 07:09 01/09/17 07:09 Laboratory Results 01/08/17 04:16 01/08/17 04:16 01/08/17 01/09/17 01/10/17 05:59 05:59 05:59 Intake Total 220 390 Balance 220 390 Physical Exam - Physical Exam Neck: other (Exit site ok) Respiratory: lungs clear Cardiac/Chest: regular rate, rhythm Extremities: pedal edema (trace) Neuro/Psych: oriented x 3 ICD10 Worksheet Patient Problems: Problems Problem Status Onset End stage renal disease Acute Hyperkalemia Acute Abdominal pain Acute Acute renal failure Acute Acute upper GI bleed Acute Anemia Acute Anemia associated with acute blood loss Acute Chronic renal failure Acute Diarrhea Acute Hyperkalemia Acute Hyperkalemia Acute Hyperkalemia Acute Hyperkalemia Acute Hyperkalemia Acute Hyperkalemia Acute Hyperkalemia Acute Hypertension Acute Hypocalcemia Acute Kidney failure Acute Kidney failure Acute Kidney failure Acute Metabolic acidosis Acute Renal failure Acute Shingles (herpes zoster) polyneuropathy Acute Uremia Acute Uremia Acute
[2017-01-09] MEDS: CALCIUM CARBONATE 500 MG CHEWABLE TAB PO SCH ×2 (10:35→14:27)
[2017-01-09] MEDS: ATORVASTATIN CALCIUM 40 MG TAB PO SCH (10:35)
[2017-01-09] MEDS: SODIUM BICARBONATE 650 MG TAB PO SCH (10:35)
[2017-01-09] MEDS: NEPHROVITE FOLIC ACID/VIT B&C 1 TAB PO SCH (10:35)
[2017-01-09] MEDS: METOPROLOL SUCCINATE XR 25 MG TAB PO SCH (10:36)
[2017-01-09] MEDS: PANTOPRAZOLE SODIUM 40 MG TAB PO SCH (10:36)
--- NOTE | 2017-01-09 11:02 | HOSPPROG ---
Hospitalist Progress Note Assessment/Plan: 66 yo M w esrd here for hd hyperkalemia: improved after initial rx no events tele anemia: 2/2 esrd give 1 unit packed cells in HD acidosis: improving after HD htn: continue meds dispo: home today > 30 minutes Subjective: transfused, feels better. ready for dc Objective: Vital Signs Temp Pulse Resp BP Pulse Ox 36.8 C 81 16 132/86 H 93 01/09/17 07:09 01/09/17 10:36 01/09/17 07:09 01/09/17 10:36 01/09/17 07:09 Laboratory Results 01/08/17 04:16 01/08/17 04:16 01/08/17 01/09/17 01/10/17 05:59 05:59 05:59 Intake Total 220 390 Balance 220 390 - Physical Exam Constitutional: no apparent distress, appears nourished Eyes: PERRL, anicteric sclera Ears, Nose, Mouth, Throat: moist mucous membranes, hearing normal Cardiovascular: regular rate and rhythym, no murmur, rub, or gallop Respiratory: no respiratory distress, no rales or rhonchi Gastrointestinal: normoactive bowel sounds, soft, non-tender abdomen Genitourinary: no bladder fullness, No godoy in urethra Skin: warm, normal color Musculoskeletal: full muscle strength, no muscle tenderness Neurologic: AAOx3, sensation intact bilaterally Psychiatric: interacting appropriately, not anxious ICD10 Worksheet Patient Problems: Problems Problem Status Onset End stage renal disease Acute Hyperkalemia Acute Abdominal pain Acute Acute renal failure Acute Acute upper GI bleed Acute Anemia Acute Anemia associated with acute blood loss Acute Chronic renal failure Acute Diarrhea Acute Hyperkalemia Acute Hyperkalemia Acute Hyperkalemia Acute Hyperkalemia Acute Hyperkalemia Acute Hyperkalemia Acute Hyperkalemia Acute Hypertension Acute Hypocalcemia Acute Kidney failure Acute Kidney failure Acute Kidney failure Acute Metabolic acidosis Acute Renal failure Acute Shingles (herpes zoster) polyneuropathy Acute Uremia Acute Uremia Acute
[2017-01-09 11:31] VITALS: BP 142/70; PULSE 60; TEMP 97.4; O2SAT 96
--- NOTE | 2017-01-09 11:50 | GDS ---
[f rep st] DISCHARGE SUMMARY DISCHARGE DIAGNOSES: 1. End-stage renal disease. 2. Hyperkalemia. 3. Anemia of end-stage renal disease. 4. Hypertension. Please see admission history and physical by Dr. Pa Conway. The patient presented with no di alysis and hyperkalemia, his common presentation. He has no access to dialysis as an outpatient. Mitch evans was dialyzed 3 times, received a unit of packed cells for a low hemoglobin in the low 7s. He was discharged home today with unchanged medication regimen. /[id number]/MODL
[2017-01-09] MEDS ORDERED: HEPARIN 50,000 UNIT/10 ML VIAL ONE (14:00)
== END 2017-01-09 15:01 | disposition home or self-care (01) | DRG 682 ==
LOC: OBSVTOIN 15:09 → F2W 15:14
PROVIDERS: ADMIT Student in an Organized Health Care Education/Training Program; ATTEND Student in an Organized Health Care Education/Training Program
PROC: 5A1D60Z (ICD-10-PCS; principal; 2017-01-08)
PROC: 30233N1 Transfusion of Nonautologous Red Blood Cells into Peripheral Vein, Percutaneous Approach (ICD-10-PCS; 2017-01-08)
DX: I12.0 Hypertensive chronic kidney disease with stage 5 chronic kidney disease or end stage renal disease (principal); N18.6 End stage renal disease; E87.5 Hyperkalemia; D63.1 Anemia in chronic kidney disease; Z95.5 Presence of coronary angioplasty implant and graft
CPT/HCPCS: 82947-QW; 96374; J0610; J0885; J1644; J1815; P9016

== ENCOUNTER 2017-01-14 12:30 | Inpatient (IN) | payer OTHER ==
--- NOTE | 2017-01-14 14:10 | EDPHY ---
HPI/HX/ROS/PE/MDM Narrative: CHIEF COMPLAINT: Needs dialysis HPI: The patient is a patient is a 66-year-old male with a history of end-stage renal disease with frequent ED visits related to dialysis. The patient states his last hemodialysis was 7 days ago. He complains of some mild shortness of breath and abdominal fullness which is typical of his need for dialysis. He denies fever or any new symptoms. REVIEW OF SYSTEMS: Aside from elements discussed in the HPI, a comprehensive 10-point review of systems was reviewed and is negative. PMH: Chronic end-stage renal disease. SOCIAL HISTORY: Denies alcohol or drug abuse. PHYSICAL EXAM: General:Patient is alert, in no acute distress. Appears somewhat chronically ill. ENT:Eyes are normal to inspection. ENT inspection normal. Neck: Normal inspection. Full range of motion. Respiratory:No respiratory distress. Breath sounds normal bilaterally. Cardiovascular: Regular rate and rhythm. Strong peripheral pulses. Normal cap refill. Abdomen:The abdomen is nontender to palpation. There are no peritoneal signs. There are normal bowel sounds. Back: Normal to inspection. No tenderness to palpation. Skin: Normal color. No rash. Warm and dry. Extremities: Normal appearance. Full range of motion. Neuro: Oriented x3. Normal motor function. Normal sensory function. ED Course: I spoke to Dr. Scott who will admit this patient. MDM: This patient presents with typical symptoms of needing dialysis. His labs are consistent with this. He requires admission to the hospital for further treatment. - Data Points Laboratory Results: Laboratory Results 01/14/17 14:17 01/14/17 01/14/17 01/14/17 14:17 14:17 14:16 WBC 5.34 10^3/uL 10^3/uL (3.80-9.50) RBC 2.57 10^6/uL L 10^6/uL (4.40-6.38) Hgb 8.1 g/dL L g/dL (13.7-17.5) POC Hgb 8.8 gm/dL L gm/dL (13.7-17.5) Hct 25.4 % L % (40.0-51.0) POC Hct 26 % L % (40-51) MCV 98.8 fL fL (81.5-99.8) MCH 31.5 pg pg (27.9-34.1) MCHC 31.9 g/dL L g/dL (32.4-36.7) RDW 17.1 % H % (11.5-15.2) Plt Count 147 10^3/uL L 10^3/uL (150-400) MPV 9.9 fL fL (8.7-11.7) Neut % (Auto) 57.5 % % (39.3-74.2) Lymph % (Auto) 20.0 % % (15.0-45.0) [place] % (Auto) 9.6 % % (4.5-13.0) Eos % (Auto) 10.5 % H % (0.6-7.6) Baso % (Auto) 1.7 % % (0.3-1.7) Nucleat RBC Rel Count 0.0 % % (0.0-0.2) Absolute Neuts (auto) 3.07 10^3/uL 10^3/uL (1.70-6.50) Absolute Lymphs (auto) 1.07 10^3/uL 10^3/uL (1.00-3.00) Absolute Monos (auto) 0.51 10^3/uL 10^3/uL (0.30-0.80) Absolute Eos (auto) 0.56 10^3/uL H 10^3/uL (0.03-0.40) Absolute Basos (auto) 0.09 10^3/uL 10^3/uL (0.02-0.10) Absolute Nucleated RBC 0.00 10^3/uL 10^3/uL (0-0.01) Immature Gran % 0.7 % % (0.0-1.1) Immature Gran # 0.04 10^3/uL 10^3/uL (0.00-0.10) POC Sodium 140 mEq/L mEq/L (134-144) Sodium Pending POC Potassium 6.2 mEq/L H mEq/L (3.3-5.0) Potassium Pending POC Chloride 102 mEq/L mEq/L (97-110) Chloride Pending Carbon Dioxide Pending Anion Gap Pending POC BUN 139 mg/dL H* mg/dL (7-23) BUN Pending Creatinine Pending POC Creatinine 17.1 mg/dL H* mg/dL (0.7-1.3) Estimated GFR Pending Glucose Pending POC Glucose 90 mg/dL mg/dL (70-100) Calcium Pending Point of Care Test Results: 01/14/17 14:16 POC Sodium 140 POC Potassium 6.2 H POC Chloride 102 POC BUN 139 H* POC Creatinine 17.1 H* POC Glucose 90 General Time Seen by Provider: 01/14/17 13:55 Initial Vital Signs: Initial Vital Signs Temperature (C) 36.6 C 01/14/17 12:58 Heart Rate 62 01/14/17 12:58 Respiratory Rate 18 01/14/17 12:58 Blood Pressure 112/42 L 01/14/17 12:58 O2 Sat (%) 96 01/14/17 12:58 O2 Delivery Mode Room Air Allergies/Adverse Reactions: No Known Allergies Allergy (Verified 01/14/17 12:57) Home Medications: Medication Instructions Recorded Atorvastatin Calcium [Lipitor 40 80 mg PO DAILY 10/30/16 mg (*)] Nitroglycerin [Nitrostat 0.4 mg 0.4 mg SL AD PRN 10/30/16 (*)] Sodium Bicarbonate [Na Bicarb] 1,300 mg PO DAILY 10/30/16 amLODIPine BESYLATE [Norvasc 10 mg 10 mg PO DAILY 10/30/16 (*)] Calcium Carbonate [Tums 500MG (*)] 500 mg PO TIDMEAL #90 tab.chew 11/01/16 Hydralazine HCl 50 mg PO DAILY 12/03/16 Pantoprazole Sodium [Protonix 40mg 40 mg PO DAILY 12/03/16 (*)] Metoprolol Succinate Xr [Toprol Xl 25 mg PO DAILY #30 tab 01/02/17 25 mg (*)] Folic Acid/Vit B Com W/C 1 each PO DAILY 01/07/17 [Nephro-Peyton Rx] Departure - Departure Disposition: [facility] Inpatient Acute Clinical Impression: Chronic renal failure, Hyperkalemia Condition: Fair Referrals: Jacqueline Rodriges MD [Primary Care Provider] - As per Instructions
--- NOTE | 2017-01-14 14:24 | CPEKG ---
Heart Rate: 54 RR Interval: 1111 P-R Interval: 192 QRSD Interval: 98 QT Interval: 488 QTC Interval: 463 P [place]: 65 QRS [place]: 68 T Wave [place]: 68 EKG Severity - NORMAL ECG - EKG Impression: SINUS RHYTHM Electronically Signed By: Geremias Enamorado 14-Jan-2017 14:57:55
[2017-01-14 14:25] LABS: % IMMATURE GRANULYOCYTES 0.7 % (0.0-1.1); ABSOLUTE IMMATURE GRANULOCYTES 0.04 10^3/uL (0.00-0.10); ADD DIFF? NO; ADD MORPH? NO; ADD SCAN? NO; ATYPICAL LYMPHOCYTE FLAG 10 (0-99); FRAGMENT RBC FLAG 0 (0-99); HEMATOCRIT 25.4 % (40.0-51.0); HEMOGLOBIN 8.1 g/dL (13.7-17.5); LEFT SHIFT FLG 0 (0-99); LIPEMIA HEMOLYSIS FLAG 80 (0-99); MEAN CELL HEMOGLOBIN 31.5 pg (27.9-34.1); MEAN CELL HEMOGLOBIN CONCENTR. 31.9 g/dL (32.4-36.7); MEAN CELL VOLUME 98.8 fL (81.5-99.8); MEAN PLATELET VOLUME 9.9 fL (8.7-11.7); PLATELET CLUMPS FLAG 0 (0-99); PLATELET COUNT 147 10^3/uL (150-400); RED BLOOD CELL COUNT 2.57 10^6/uL (4.40-6.38); RED CELL DISTRIBUTION WIDTH 17.1 % (11.5-15.2)
[2017-01-14] MEDS ORDERED: ACETAMINOPHEN 325 MG TAB PO PRN (14:31)
[2017-01-14 14:54] LABS: ANION GAP 28 mEq/L (8-16); CALCIUM 7.5 mg/dL (8.5-10.4); CARBON DIOXIDE 15 mEq/l (22-31); CHLORIDE 101 mEq/L (97-110); GLUCOSE 88 mg/dL (70-100); SODIUM 144 mEq/L (134-144)
--- NOTE | 2017-01-14 14:57 | SOAPPROG ---
JACQUELINE Progress Note Assessment/Plan: Assessment: 1)ESRD- no access to outpt unit given citizenship status -emergent HD now given hyperkalemia- short run, low blood flow given risk dialysis dysequilibrium -HD again tomorrow 2)Hyperkalemia -HD now, renal diet when taking po 3)Anemia of CKD -transfuse if hB < 7 -will give Epo 10,000 units sq x 1 now 4)MBD of CKD -check phos am labs, renal diet when taking po 5)Metabolic acidosis -will improve with HD I discussed with ER 01/14/17 15:40 Subjective: 66 y/o man with h/o ESRD (no outpt unit given citizenship status) well known to our service now presents with weakness, diarrhea. Last HD about a week ago. K 6.5 in ER. Denies fevers, cp, sob. Objective: Vital Signs Temp Pulse Resp BP Pulse Ox 36.8 C 62 18 115/67 95 01/14/17 14:00 01/14/17 14:00 01/14/17 14:00 01/14/17 14:00 01/14/17 14:00 Physical Exam - Physical Exam General Appearance: no apparent distress EENT: other (mmm) Neck: supple, other (RIJ TDC tunnel no pain on palpation) Respiratory: lungs clear Cardiac/Chest: regular rate, rhythm, other (no rub) Abdomen: normal bowel sounds, non-tender, soft Extremities: non-tender, other (no edema) Neuro/Psych: alert, oriented x 3 ICD10 Worksheet Patient Problems: Problems Problem Status Onset Chronic renal failure Acute Hyperkalemia Acute Abdominal pain Acute Acute renal failure Acute Acute upper GI bleed Acute Anemia Acute Anemia associated with acute blood loss Acute Diarrhea Acute End stage renal disease Acute Hyperkalemia Acute Hyperkalemia Acute Hyperkalemia Acute Hyperkalemia Acute Hyperkalemia Acute Hyperkalemia Acute Hyperkalemia Acute Hyperkalemia Acute Hypertension Acute Hypocalcemia Acute Kidney failure Acute Kidney failure Acute Kidney failure Acute Metabolic acidosis Acute Renal failure Acute Shingles (herpes zoster) polyneuropathy Acute Uremia Acute Uremia Acute
[2017-01-14 15:04] LABS: GLOMERULAR FILTRATION RATE 3
[2017-01-14 15:06] LABS: POTASSIUM 6.6 mEq/L (3.5-5.2)
[2017-01-14 15:07] LABS: CREATININE 16.5 mg/dL (0.7-1.3)
[2017-01-14] MEDS ORDERED: NITROGLYCERIN 0.4 MG BTL SL PRN (15:42)
--- NOTE | 2017-01-14 15:46 | PDGENHP ---
History and Physical - Chief Complaint Acute diarrhea - History of Present Illness primary care provider: None HPI: 66-year-old male presenting with acute diarrhea characterized as brown, liquid, nonbloody, nonmelanotic stool with onset of symptoms 1 day prior to presentation and duration persistent thereafter. Patient reports some associated abdominal fullness and some mild shortness of breath exacerbated by exertion. He has otherwise been taking all of his home medications denies any chest pain palpitations or dizziness. He was recently discharged on 01/09/2017. History Information - Allergies/Home Medication List Allergies/Adverse Reactions: No Known Allergies Allergy (Verified 01/14/17 12:57) Home Medications: Atorvastatin Calcium [Lipitor 40 mg (*)] 80 mg PO DAILY 10/30/16 [Last Taken 06/23] Nitroglycerin [Nitrostat 0.4 mg (*)] 0.4 mg SL AD PRN 10/30/16 [Last Taken Unknown] Sodium Bicarbonate [Na Bicarb] 1,300 mg PO DAILY 10/30/16 [Last Taken 12/16/16] amLODIPine BESYLATE [Norvasc 10 mg (*)] 10 mg PO DAILY 10/30/16 [Last Taken 06/23] Hydralazine HCl 50 mg PO DAILY 12/03/16 [Last Taken 12/17/16] Pantoprazole Sodium [Protonix 40mg (*)] 40 mg PO DAILY 12/03/16 [Last Taken 06/23] Folic Acid/Vit B Com W/C [Nephro-Peyton Rx] 1 each PO DAILY 01/07/17 [Last Taken Unknown] I have personally reviewed and updated: family history, medical history, social history, surgical history - Past Medical History coronary artery disease (Known coronary disease but has not undergone interventional cardiac catheterization), ESRD, GI bleed, GERD (Anemia of chronic disease, H/O UGIB x2 (first on Plavix +ASA, then on ASA alone), esophagitis), hypertension Additional medical history: Anemia of chronic kidney disease; upper GI bleed in the setting of anti-platelet medications, has occurred while on single and double agent therapy; 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; esophagitis - Surgical History Additional surgical history: R IJ tunneled catheter - Family History Additional family history: Mother with CVA and HTN - Social History Smoking Status: Former smoker Alcohol Use: None Drug Use: None Additional social history: Continues to work on non-HD days Review of Systems ROS: 10pt was reviewed & negative except for what was stated in HPI & below Respiratory: Reports: shortness of breath Gastrointestinal: Reports: diarrhea Physical Exam Temp Pulse Resp BP Pulse Ox 36.8 C 62 18 115/67 95 01/14/17 14:00 01/14/17 14:00 01/14/17 14:00 01/14/17 14:00 01/14/17 14:00 Constitutional: no apparent distress, not in pain, chronically ill appearing, cachectic Eyes: PERRL, anicteric sclera, EOMI Ears, Nose, Mouth, Throat: moist mucous membranes, hearing normal, ears appear normal, no oral mucosal ulcers Cardiovascular: systolic murmur ( 2/6 at the sternum and apex), No irregularly irregular, No tachycardia, No edema Respiratory: no respiratory distress, no rales or rhonchi, clear to auscultation Gastrointestinal: normoactive bowel sounds, soft, non-tender abdomen, no palpable masses, No guarding, No rebound, No distension Skin: no induration, other ( no erythema around the dialysis site) Neurologic: AAOx3, sensation intact bilaterally, No weakness Psychiatric: interacting appropriately, not anxious, not encephalopathic, thought process linear Lab Data & Imaging Review 01/14/17 14:17 01/14/17 14: WBC 5.34 10^3/uL (3.80-9.50) 01/14/17 14: RBC 2.57 10^6/uL (4.40-6.38) L 01/14/17 14: Hgb 8.1 g/dL (13.7-17.5) L 01/14/17 14:17 POC Hgb 8.8 gm/dL (13.7-17.5) L 01/14/17 14:16 Hct 25.4 % (40.0-51.0) L 01/14/17 14: POC Hct 26 % (40-51) L 01/14/17 14:16 MCV 98.8 fL (81.5-99.8) 01/14/17 14: MCH 31.5 pg (27.9-34.1) 01/14/17 14: MCHC 31.9 g/dL (32.4-36.7) L 01/14/17 14:17 RDW 17.1 % (11.5-15.2) H 01/14/17 14:17 Plt Count 147 10^3/uL (150-400) L 01/14/17 14:17 MPV 9.9 fL (8.7-11.7) 01/14/17 14:17 Neut % (Auto) 57.5 % (39.3-74.2) 01/14/17 14:17 Lymph % (Auto) 20.0 % (15.0-45.0) 01/14/17 14:17 [place] % (Auto) 9.6 % (4.5-13.0) 01/14/17 14:17 Eos % (Auto) 10.5 % (0.6-7.6) H 01/14/17 14:17 Baso % (Auto) 1.7 % (0.3-1.7) 01/14/17 14: Nucleat RBC Rel Count 0.0 % (0.0-0.2) 01/14/17 14: Absolute Neuts (auto) 3.07 10^3/uL (1.70-6.50) 01/14/17 14: Absolute Lymphs (auto) 1.07 10^3/uL (1.00-3.00) 01/14/17 14: Absolute Monos (auto) 0.51 10^3/uL (0.30-0.80) 01/14/17 14:17 Absolute Eos (auto) 0.56 10^3/uL (0.03-0.40) H 01/14/17 14: Absolute Basos (auto) 0.09 10^3/uL (0.02-0.10) 01/14/17 14: Absolute Nucleated RBC 0.00 10^3/uL (0-0.01) 01/14/17 14: Immature Gran % 0.7 % (0.0-1.1) 01/14/17 14:17 Immature Gran # 0.04 10^3/uL (0.00-0.10) 01/14/17 14:17 POC Sodium 140 mEq/L (134-144) 01/14/17 14:16 Sodium 144 mEq/L (134-144) 01/14/17 14:17 POC Potassium 6.2 mEq/L (3.3-5.0) H 01/14/17 14:16 Potassium 6.6 mEq/L (3.5-5.2) H* 01/14/17 14:17 POC Chloride 102 mEq/L (97-110) 01/14/17 14:16 Chloride 101 mEq/L (97-110) 01/14/17 14:17 Carbon Dioxide 15 mEq/l (22-31) L 01/14/17 14:17 Anion Gap 28 mEq/L (8-16) H 01/14/17 14:17 POC BUN 139 mg/dL (7-23) H* 01/14/17 14:16 BUN 134 mg/dL (7-23) H* 01/14/17 14:17 Creatinine 16.5 mg/dL (0.7-1.3) H* 01/14/17 14:17 POC Creatinine 17.1 mg/dL (0.7-1.3) H* 01/14/17 14:16 Estimated GFR 3 01/14/17 14:17 Glucose 88 mg/dL (70-100) 01/14/17 14:17 POC Glucose 90 mg/dL (70-100) 01/14/17 14:16 Calcium 7.5 mg/dL (8.5-10.4) L 01/14/17 14:17 Visualized and Interpreted EKG results: Yes EKG Interpretation: Positive for: other ( normal sinus rhythm with mildly peaked T-waves) Assessment & Plan Assessment: 66-year-old male presents with acute severe hyperkalemia in the setting of end- stage renal disease Plan: 1. Hyperkalemia. Acute, severe, new problem this provider, further workup indicated. Secondary to end-stage renal disease and no access to hemodialysis, last dialysis session was 01/09, presenting potassium level 6.6 with mild peaked T -waves on EKG - monitor rhythm on telemetry as he is high risk for developing arrhythmia - repeat potassium level at 6:00 p.m. or later if patient receives hemodialysis this afternoon - repeat potassium level in a.m. and repeat dialysis session thereafter 2. End-stage renal disease. I reviewed outside records including discharge summary by Dr. Silvestre Rich from 01/09/2017, reporting the patient received 3 dialysis sessions most recently 01/09 and required 1 unit of packed red blood cells - discussed presentation with Dr. Burch from Nephrology, she will attempt to facilitate a short run of hemodialysis this afternoon and then another 1 tomorrow morning 3. Metabolic acidosis. Acute on chronic, serum bicarbonate level 15, patient has been taking bicarb once daily at home and he may require up titration of this oral supplement, will be at the direction of the Nephrology service, will receive hemodialysis 4. Anemia of chronic kidney disease. Hemoglobin level 8.1, no evidence of acute blood loss, hold on transfusion at this time 5. Coronary artery disease. Chronic, no chest pain, continue home medications Diet. Renal Prophylaxis. High risk patient, heparin subcu Code. Full Disposition. Anticipated discharge is uncertain this time, anticipated length stay is greater than 48 hours warranting inpatient admission status for acute severe hyperkalemia and high-risk co-morbid metabolic acidosis likely requiring numerous sessions of hemodialysis.
[2017-01-14] MEDS: CALCIUM CARBONATE 500 MG CHEWABLE TAB PO SCH (19:54)
[2017-01-14] MEDS ORDERED: HEPARIN 50,000 UNIT/10 ML VIAL ONE (20:51)
[2017-01-14 21:01] VITALS: RESP 16
[2017-01-14 21:01] LABS: POTASSIUM 4.2 mEq/L (3.5-5.2)
[2017-01-14] MEDS: HEPARIN 5,000 UNIT/0.5 ML SYR SC SCH (21:05)
[2017-01-15 00:25] VITALS: O2SAT 94
[2017-01-15] MEDS: HEPARIN 5,000 UNIT/0.5 ML SYR SC SCH ×2 (05:55→15:12)
[2017-01-15 06:24] LABS: HEMOGLOBIN 7.6 g/dL (13.7-17.5)
[2017-01-15 06:39] LABS: ALANINE AMINOTRANSFERASE 30 IU/L (21-72); ALBUMIN 3.9 g/dL (3.5-5.0); ALKALINE PHOSPHATASE 136 IU/L (38-126); ANION GAP 19 mEq/L (8-16); ASPARTATE AMINOTRANSFERASE 15 IU/L (17-59); BILIRUBIN,TOTAL 0.5 mg/dL (0.1-1.4); CALCIUM 7.6 mg/dL (8.5-10.4); CARBON DIOXIDE 18 mEq/l (22-31); CHLORIDE 104 mEq/L (97-110); GLOMERULAR FILTRATION RATE 5; GLUCOSE 87 mg/dL (70-100); POTASSIUM 5.3 mEq/L (3.5-5.2); SODIUM 141 mEq/L (134-144); TOTAL PROTEIN 5.8 g/dL (6.3-8.2)
[2017-01-15 06:41] LABS: CREATININE 10.6 mg/dL (0.7-1.3)
[2017-01-15] MEDS: CALCIUM CARBONATE 500 MG CHEWABLE TAB PO SCH ×2 (08:31→15:11)
[2017-01-15] MEDS ORDERED: METOPROLOL SUCCINATE XR 25 MG TAB PO SCH (09:00)
[2017-01-15] MEDS ORDERED: EPOETIN ALFA 10,000 UNIT/ML VIAL SC SCH (09:00)
[2017-01-15] MEDS ORDERED: PANTOPRAZOLE SODIUM 40 MG TAB PO SCH (09:00)
[2017-01-15] MEDS ORDERED: ATORVASTATIN CALCIUM 40 MG TAB PO SCH (09:00)
[2017-01-15] MEDS ORDERED: NEPHROVITE FOLIC ACID/VIT B&C 1 TAB PO SCH (09:00)
[2017-01-15] MEDS ORDERED: SODIUM BICARBONATE 650 MG TAB PO SCH (09:00)
--- NOTE | 2017-01-15 09:40 | SOAPPROG ---
SOEDY Progress Note Assessment/Plan: Assessment:Plan: ESRD-stable on Hd -prior problems with dialysis dysequilibrium syndrome -tolerating Hd so far -daily treatment while in hospital Access-stable Anemia-on EPO Dispo-per hospital team 01/15/17 09:38 Subjective: stable on dialysis Objective: Vital Signs Temp Pulse Resp BP Pulse Ox 36.8 C 66 16 126/60 H 94 01/15/17 03:21 01/15/17 03:21 01/15/17 03:21 01/15/17 03:21 01/15/17 03:21 Laboratory Results 01/15/17 06:00 01/15/17 06:00 01/14/17 01/15/17 01/16/17 05:59 05:59 05:59 Intake Total 680 Balance 680 Physical Exam - Physical Exam General Appearance: alert, no apparent distress, cachetic, thin EENT: normal ENT inspection Neck: normal inspection Respiratory: lungs clear, normal breath sounds, decreased breath sounds (at bases only) Cardiac/Chest: regular rate, rhythm Abdomen: normal bowel sounds Extremities: swelling (trace) ICD10 Worksheet Patient Problems: Problems Problem Status Onset Chronic renal failure Acute Hyperkalemia Acute Abdominal pain Acute Acute renal failure Acute Acute upper GI bleed Acute Anemia Acute Anemia associated with acute blood loss Acute Diarrhea Acute End stage renal disease Acute Hyperkalemia Acute Hyperkalemia Acute Hyperkalemia Acute Hyperkalemia Acute Hyperkalemia Acute Hyperkalemia Acute Hyperkalemia Acute Hyperkalemia Acute Hypertension Acute Hypocalcemia Acute Kidney failure Acute Kidney failure Acute Kidney failure Acute Metabolic acidosis Acute Renal failure Acute Shingles (herpes zoster) polyneuropathy Acute Uremia Acute Uremia Acute
--- NOTE | 2017-01-15 13:14 | WOCRNPDOC ---
WOCRN Advanced Assessment Note - Skin Integrity Problem, Advanced Assess Right Lower Leg Dressing Type: Open to Air Exudate Amount: Scant Exudate Characteristic(s): Serosanguinous Joan Wound Tissue: Hemosiderin Staining, Venous Dermatitis, Xerotic, Scarred Joan Wound Swelling: None Wound Bed Color: [place] Wound Bed Constitution: Dried Exudate Skin Integrity Problem Comment: Large area that was previously an open venous stasis ulcer has closed. Now presents with scattered small openings around posterior ankle. Patient reports being non compliant with compression. The importance of compression was reitterated. Report to Maryann MILAN. Wound care will not follow. Calf circumference on right: 30cm and left is 27 cm. Will again provide moderate compression for patient: tubigrip D; apply before getting OOB in am and remove NOC.
[2017-01-15 14:42] LABS: ALBUMIN 4.1 g/dL (3.5-5.0); ANION GAP 15 mEq/L (8-16); CALCIUM 8.2 mg/dL (8.5-10.4); CARBON DIOXIDE 21 mEq/l (22-31); CHLORIDE 101 mEq/L (97-110); CREATININE 5.9 mg/dL (0.7-1.3); GLOMERULAR FILTRATION RATE 10; GLUCOSE 134 mg/dL (70-100); POTASSIUM 4.3 mEq/L (3.5-5.2); SODIUM 137 mEq/L (134-144)
[2017-01-15 15:33] VITALS: BP 130/71; PULSE 59; TEMP 97.9
--- NOTE | 2017-01-16 04:33 | GDS ---
[f rep st] DISCHARGE SUMMARY DISCHARGE DIAGNOSES: 1. End-stage renal disease, dialysis dependent, without outpatient benefits. 2. Hyperkalemia, resolved. 3. Metabolic acidosis, improved. 4. Chronic anemia, secondary to end-stage renal disease. 5. Coronary artery disease, stable. CONSULTANTS: Dr. Elba Burch, Nephrology. HISTORY: For details please see the History And Physical, dated January 14, 2017. In brief, Mr. Sybil Gruber is a 66-year-old male, well known to the medicine service, who returns for dialysis needs . HOSPITAL COURSE: Patient admitted to the PCU. He was noted to have mildly peaked T-waves on his in itial EKG, with a presenting potassium of 6.6. Nephrology was consulted. He underwent dialysis on the day of admission, as well as on the day of discharge. His potassium is normalized at the time o f discharge. He received a dose of Epogen, per the renal service, for a hemoglobin of 7.6. Overall , his condition is stable, and the patient wishes to go home. DISPOSITION: Patient is discharged home in stable condition. DISCHARGE MEDICATIONS: Please see [employer] for complete updated outpatient medication list. We ivette l continue all outpatient medications as prescribed. FOLLOWUP: The patient is to return to the hospital for recurrent dialysis needs and follow up with his primary care, Dr. Jacqueline Rodriges, as needed. /[id number]/MODL
== END 2017-01-15 18:26 | disposition home or self-care (01) | DRG 683 ==
LOC: F2W 15:49
PROVIDERS: ADMIT Internal Medicine; ATTEND Internal Medicine
PROC: 5A1D60Z (ICD-10-PCS; principal; 2017-01-14)
DX: N18.6 End stage renal disease (principal); E87.2 Acidosis; E87.5 Hyperkalemia; D63.8 Anemia in other chronic diseases classified elsewhere; I25.10 Atherosclerotic heart disease of native coronary artery without angina pectoris; Z99.2 Dependence on renal dialysis
CPT/HCPCS: 82947-QW; J0885; J1644

== ENCOUNTER 2017-01-21 15:00 | Inpatient (IN) | payer OTHER ==
--- NOTE | 2017-01-21 16:11 | EDPHY ---
H & P Stated Complaint: WEEKLY HD TREATMENT NEEDED Time Seen by Provider: 01/21/17 16:02 HPI/ROS: CHIEF COMPLAINT: Dialysis HISTORY OF PRESENT ILLNESS: Mr. Muro is a 67-year-old male presenting to the emergency department for his weekly dialysis. Last dialysis was 710 no complications. Patient denies any chest pain or shortness of breath, has been able to take prescribed medications. States his only complaint is intermittent diarrhea which is normal for him when he is due for dialysis. REVIEW OF SYSTEMS: Constitutional: No fever, no chills. Decrease in appetite, but tolerating p.o. intake Eyes: No discharge. ENT: No sore throat. Cardiovascular: No chest pain, no palpitations. Respiratory: No cough, no shortness of breath. Gastrointestinal: No abdominal pain, no vomiting. Genitourinary: No hematuria. Musculoskeletal: No back pain. Skin: No rashes. Neurological: No headache. 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, Old records - Personal History Current Tetanus/Diphtheria Vaccine: Yes Tetanus Vaccine Date: 2010 - Medical/Surgical History Hx Asthma: No Hx Chronic Respiratory Disease: No Hx Diabetes: No Hx Cardiac Disease: Yes Hx Renal Disease: Yes Hx Cirrhosis: No Hx Alcoholism: No Hx HIV/AIDS: No Hx Splenectomy or Spleen Trauma: No Other PMH: gout, htn, hernia, anemia, cad, esophagitis, gastric ulcer, renal failure, dialysis, heart stent, shingles - Social History Smoking Status: Former smoker - Physical Exam Exam: General Appearance: Alert, no distress. Eyes: Pupils equal and round no pallor or injection. ENT, Mouth: Mucous membranes moist. Respiratory: There are no retractions, lungs are clear to auscultation. Cardiovascular: Regular rate and rhythm. Implanted dialysis port right anterior chest Gastrointestinal: Abdomen is soft and nontender, no masses, bowel sounds normal. Neurological: No focal deficits. Patient answering questions appropriately Skin: Warm and dry, no rashes. Musculoskeletal: Neck is supple nontender. Extremities: symmetrical, full range of motion. Psychiatric: Patient is oriented X 3, acting appropriately Constitutional: Initial Vital Signs Temperature (C) 36.5 C 01/21/17 15:25 Heart Rate 56 L 01/21/17 15:25 Respiratory Rate 18 01/21/17 15:25 Blood Pressure 132/60 H 01/21/17 15:25 O2 Sat (%) 97 01/21/17 15:25 O2 Delivery Mode Room Air Allergies/Adverse Reactions: No Known Allergies Allergy (Verified 01/14/17 12:57) Home Medications: Medication Instructions Recorded Atorvastatin Calcium [Lipitor 40 80 mg PO DAILY 10/30/16 mg (*)] Nitroglycerin [Nitrostat 0.4 mg 0.4 mg SL AD PRN 10/30/16 (*)] Sodium Bicarbonate [Na Bicarb] 1,300 mg PO DAILY 10/30/16 amLODIPine BESYLATE [Norvasc 10 mg 10 mg PO DAILY 10/30/16 (*)] Calcium Carbonate [Tums 500MG (*)] 500 mg PO TIDMEAL #90 tab.chew 11/01/16 Hydralazine HCl 50 mg PO DAILY 12/03/16 Pantoprazole Sodium [Protonix 40mg 40 mg PO DAILY 12/03/16 (*)] Metoprolol Succinate Xr [Toprol Xl 25 mg PO DAILY #30 tab 01/02/17 25 mg (*)] Folic Acid/Vit B Com W/C 1 each PO DAILY 01/07/17 [Nephro-Peyton Rx] Medical Decision Making ED Course/Re-evaluation: Discussed ED plan of care: CBC, CMP, EKG, dialysis. Patient presenting with typical symptoms for dialysis reviewed labs and previous visits 1655: Patient admitted PCU for dialysis, Dr. Rich accepting physician 110: Spoke with Dr. Harrell accepting patient for dialysis most likely patient will be dialyzed this evening. Differential Diagnosis: Other differential diagnosis considered but not limited to CVA, chest pain, and sepsis - Data Points Laboratory Results: Laboratory Results 01/21/17 16:05 01/21/17 16:05 01/21/17 01/21/17 16:05 16:05 WBC 5.20 10^3/uL 10^3/uL (3.80-9.50) RBC 2.69 10^6/uL L 10^6/uL (4.40-6.38) Hgb 8.7 g/dL L g/dL (13.7-17.5) Hct 26.4 % L % (40.0-51.0) MCV 98.1 fL fL (81.5-99.8) MCH 32.3 pg pg (27.9-34.1) MCHC 33.0 g/dL g/dL (32.4-36.7) RDW 17.8 % H % (11.5-15.2) Plt Count 122 10^3/uL L 10^3/uL (150-400) MPV 10.6 fL fL (8.7-11.7) Neut % (Auto) 62.8 % % (39.3-74.2) Lymph % (Auto) 17.1 % % (15.0-45.0) [place] % (Auto) 6.7 % % (4.5-13.0) Eos % (Auto) 11.9 % H % (0.6-7.6) Baso % (Auto) 1.3 % % (0.3-1.7) Nucleat RBC Rel Count 0.0 % % (0.0-0.2) Absolute Neuts (auto) 3.26 10^3/uL 10^3/uL (1.70-6.50) Absolute Lymphs (auto) 0.89 10^3/uL L 10^3/uL (1.00-3.00) Absolute Monos (auto) 0.35 10^3/uL 10^3/uL (0.30-0.80) Absolute Eos (auto) 0.62 10^3/uL H 10^3/uL (0.03-0.40) Absolute Basos (auto) 0.07 10^3/uL 10^3/uL (0.02-0.10) Absolute Nucleated RBC 0.00 10^3/uL 10^3/uL (0-0.01) Immature Gran % 0.2 % % (0.0-1.1) Immature Gran # 0.01 10^3/uL 10^3/uL (0.00-0.10) Sodium 145 mEq/L H mEq/L (134-144) Potassium 6.6 mEq/L H* mEq/L (3.5-5.2) Chloride 111 mEq/L H mEq/L (97-110) Carbon Dioxide 8 mEq/l L* mEq/l (22-31) Anion Gap 26 mEq/L H mEq/L (8-16) BUN 152 mg/dL H* mg/dL (7-23) Creatinine 18.8 mg/dL H* mg/dL (0.7-1.3) Estimated GFR 3 Glucose 144 mg/dL H mg/dL (70-100) Calcium 7.2 mg/dL L mg/dL (8.5-10.4) Total Bilirubin 0.6 mg/dL mg/dL (0.1-1.4) AST 12 IU/L L IU/L (17-59) ALT 25 IU/L IU/L (21-72) Alkaline Phosphatase 125 IU/L IU/L (38-126) Total Protein 6.9 g/dL g/dL (6.3-8.2) Albumin 4.7 g/dL g/dL (3.5-5.0) Departure - Departure
[2017-01-21 16:15] LABS: % IMMATURE GRANULYOCYTES 0.2 % (0.0-1.1); ABSOLUTE IMMATURE GRANULOCYTES 0.01 10^3/uL (0.00-0.10); ADD DIFF? NO; ADD MORPH? NO; ADD SCAN? NO; ATYPICAL LYMPHOCYTE FLAG 0 (0-99); FRAGMENT RBC FLAG 0 (0-99); HEMATOCRIT 26.4 % (40.0-51.0); HEMOGLOBIN 8.7 g/dL (13.7-17.5); LEFT SHIFT FLG 0 (0-99); LIPEMIA HEMOLYSIS FLAG 80 (0-99); MEAN CELL HEMOGLOBIN 32.3 pg (27.9-34.1); MEAN CELL VOLUME 98.1 fL (81.5-99.8); MEAN PLATELET VOLUME 10.6 fL (8.7-11.7); PLATELET CLUMPS FLAG 0 (0-99); PLATELET COUNT 122 10^3/uL (150-400); RED BLOOD CELL COUNT 2.69 10^6/uL (4.40-6.38); RED CELL DISTRIBUTION WIDTH 17.8 % (11.5-15.2)
[2017-01-21 16:38] LABS: ALANINE AMINOTRANSFERASE 25 IU/L (21-72); ALBUMIN 4.7 g/dL (3.5-5.0); ALKALINE PHOSPHATASE 125 IU/L (38-126); ANION GAP 26 mEq/L (8-16); ASPARTATE AMINOTRANSFERASE 12 IU/L (17-59); BILIRUBIN,TOTAL 0.6 mg/dL (0.1-1.4); CALCIUM 7.2 mg/dL (8.5-10.4); CHLORIDE 111 mEq/L (97-110); GLUCOSE 144 mg/dL (70-100); SODIUM 145 mEq/L (134-144); TOTAL PROTEIN 6.9 g/dL (6.3-8.2)
[2017-01-21 16:48] LABS: GLOMERULAR FILTRATION RATE 3
[2017-01-21 16:49] LABS: CARBON DIOXIDE 8 mEq/l (22-31); POTASSIUM 6.6 mEq/L (3.5-5.2)
[2017-01-21 16:50] LABS: CREATININE 18.8 mg/dL (0.7-1.3)
--- NOTE | 2017-01-21 17:27 | CPEKG ---
Heart Rate: 50 RR Interval: 1200 P-R Interval: 208 QRSD Interval: 102 QT Interval: 484 QTC Interval: 442 P [place]: 67 QRS [place]: 78 T Wave [place]: 68 EKG Severity - NORMAL ECG - EKG Impression: SINUS RHYTHM Electronically Signed By: Filomena Worley 21-Jan-2017 21:05:20
[2017-01-21] MEDS ORDERED: ACETAMINOPHEN 325 MG TAB PO PRN (18:34)
[2017-01-21] MEDS ORDERED: ONDANSETRON 4 MG/2 ML VIAL IVP PRN (18:34)
[2017-01-21] MEDS ORDERED: ONDANSETRON DISINTEGRATING 4 MG TAB PO PRN (18:34)
[2017-01-21] MEDS ORDERED: NITROGLYCERIN 0.4 MG BTL SL PRN (18:35)
--- NOTE | 2017-01-21 19:09 | GHP ---
[f rep st] HISTORY AND PHYSICAL DATE OF ADMISSION: 01/21/2017 HISTORY OF PRESENT ILLNESS: The patient is a 67-year-old gentleman with a history of endstage renal disease admitted to the hospital to the medicine service who presents with symptoms of uremia for h im which include malaise and diarrhea. He has had these symptoms. He has not had shortness of luis th. He has not had lower extremity edema. He has not had chest pain. His last dialysis was on the when he was discharged. REVIEW OF SYSTEMS: Complete 10-point review of systems conducted. Negative except as noted in the HPI. PAST MEDICAL HISTORY: 1. End-stage renal disease, on dialysis. 2. Hypertension. 3. Coronary artery disease. 4. History of GI bleed while on Plavix which has since been stopped. 5. GERD. 6. Anemia of renal disease. 7. Esophagitis. 8. Hypertension. ALLERGIES: No known drug allergies. HOME MEDICATIONS: Amlodipine, atorvastatin, calcium carbonate, vitamin D3, folate, hydralazine, met oprolol, nitroglycerin, pantoprazole, and sodium bicarbonate. SOCIAL HISTORY: He works at a nearby [employer]. Does not smoke cigarettes or drink alcohol. FAMILY HISTORY: Parents . PHYSICAL EXAMINATION: VITAL SIGNS: Temp 36.3, blood pressure 139/50, pulse 51, breathing 18 times a minute, 99% on room air. GENERAL: No acute distress. Sclerae anicteric. Oropharynx clear. Muc ous membranes are moist. NECK: Supple without lymphadenopathy or JVD. LUNGS: Clear to auscultati on bilaterally. HEART: S1 and S2. Without rub. ABDOMEN: Soft, nontender, nondistended. LOWER E XTREMITIES: Show chronic venous stasis changes. There is no edema now. NEUROLOGIC: Exam is nonfo christian. SKIN: Without rash. LABORATORY: White count 5.2, hemoglobin and hematocrit 8.7 and 26.4 (these are up from previous shantel ues), platelets are 122,000 (which is about his baseline). Sodium 145 potassium 6.6, chloride 111, bicarb 8, BUN 152, creatinine 18.8, glucose 144, LFTs are normal. Recent hepatitis serologies were negative. EKG: Interpreted by me, shows sinus at 50 with normal axis and intervals. There are parul e peak T-waves across the precordium. I reviewed his EKGs over the last few admissions and it seems like every EKG correlates with hyperkalemia, and they all show the similar degree of moderate P-wav e peaking, his QRS has normal intervals. I discussed the case with Dr. Esteban Teran. ASSESSMENT AND PLAN: This 67-year-old gentleman presents with dialysis with uremia and hyperkalemia . 1. Hyperkalemia. It is mild. He has normal QRS interval. He is going to get dialysis tonight and in the morning. 2. Uremia. Dialysis in the morning. 3. Anemia. This is mild and it is secondary to renal disease. He was transfused not the last admi ssion but one prior. There are no signs of active bleeding. 4. Prophylaxis. Pharmacologic prophylaxis indicated with subcu heparin. DISPOSITION: Inpatient status. /[id number]/MODL
[2017-01-21] MEDS: HEPARIN 5,000 UNIT/0.5 ML SYR SC SCH (21:38)
[2017-01-22] MEDS ORDERED: METOPROLOL TARTRATE 25 MG TAB PO SCH
[2017-01-22 04:19] LABS: % IMMATURE GRANULYOCYTES 0.3 % (0.0-1.1); ABSOLUTE IMMATURE GRANULOCYTES 0.01 10^3/uL (0.00-0.10); ADD DIFF? NO; ADD MORPH? NO; ADD SCAN? NO; ATYPICAL LYMPHOCYTE FLAG 0 (0-99); FRAGMENT RBC FLAG 0 (0-99); HEMATOCRIT 23.3 % (40.0-51.0); HEMOGLOBIN 7.9 g/dL (13.7-17.5); LEFT SHIFT FLG 0 (0-99); LIPEMIA HEMOLYSIS FLAG 90 (0-99); MEAN CELL HEMOGLOBIN CONCENTR. 33.9 g/dL (32.4-36.7); MEAN CELL VOLUME 94.3 fL (81.5-99.8); PLATELET CLUMPS FLAG 0 (0-99); PLATELET COUNT 107 10^3/uL (150-400); RED BLOOD CELL COUNT 2.47 10^6/uL (4.40-6.38); RED CELL DISTRIBUTION WIDTH 17.5 % (11.5-15.2)
[2017-01-22 04:41] LABS: ANION GAP 19 mEq/L (8-16); CALCIUM 7.1 mg/dL (8.5-10.4); CARBON DIOXIDE 19 mEq/l (22-31); CHLORIDE 107 mEq/L (97-110); GLOMERULAR FILTRATION RATE 4; GLUCOSE 91 mg/dL (70-100); POTASSIUM 4.6 mEq/L (3.5-5.2); SODIUM 145 mEq/L (134-144)
[2017-01-22] MEDS: HEPARIN 5,000 UNIT/0.5 ML SYR SC SCH ×2 (05:29→13:12)
[2017-01-22 07:59] VITALS: O2SAT 100
[2017-01-22] MEDS: CALCIUM CARBONATE 500 MG CHEWABLE TAB PO SCH ×2 (08:36→13:11)
[2017-01-22] MEDS ORDERED: NEPHROVITE FOLIC ACID/VIT B&C 1 TAB PO SCH (09:00)
[2017-01-22] MEDS ORDERED: METOPROLOL SUCCINATE XR 25 MG TAB PO SCH (09:00)
[2017-01-22] MEDS ORDERED: PANTOPRAZOLE SODIUM 40 MG TAB PO SCH (09:00)
[2017-01-22] MEDS ORDERED: SODIUM BICARBONATE 650 MG TAB PO SCH (09:00)
[2017-01-22] MEDS ORDERED: CHOLECALCIFEROL VIT D3 50,000 UNIT CAP PO SCH (09:00)
[2017-01-22] MEDS ORDERED: ATORVASTATIN CALCIUM 40 MG TAB PO SCH (09:00)
--- NOTE | 2017-01-22 10:19 | SOAPPROG ---
SOAP Progress Note Assessment/Plan: Assessment: Seen on HD 1. ESRD without benefits Looks ok today. Cath function good. Stable on second dialysis. 2. Acidosis Better. Secondary to renal failure and diarrhea 3. Diarrhea This remains an issue for him. It worsens prior to needing dialysis 4. Anemia Stable Plan: 01/22/17 10:18 01/22/17 10:20 Subjective: Doing ok Objective: Vital Signs Temp Pulse Resp BP Pulse Ox 36.8 C 56 L 16 130/63 H 100 01/22/17 07:58 01/22/17 07:58 01/22/17 07:58 01/22/17 07:58 01/22/17 07:58 Laboratory Results 01/22/17 03:55 01/22/17 03:55 01/21/17 01/22/17 01/23/17 05:59 05:59 05:59 Intake Total 100 Balance 100 Physical Exam - Physical Exam General Appearance: no apparent distress Neck: other (Catheter exit site ok) Respiratory: lungs clear Cardiac/Chest: regular rate, rhythm Neuro/Psych: oriented x 3 ICD10 Worksheet Patient Problems: Problems Problem Status Onset Abdominal pain Acute Acute renal failure Acute Acute upper GI bleed Acute Anemia Acute Anemia associated with acute blood loss Acute Chronic renal failure Acute Diarrhea Acute End stage renal disease Acute Hyperkalemia Acute Hyperkalemia Acute Hyperkalemia Acute Hyperkalemia Acute Hyperkalemia Acute Hyperkalemia Acute Hyperkalemia Acute Hyperkalemia Acute Hyperkalemia Acute Hypertension Acute Hypocalcemia Acute Kidney failure Acute Kidney failure Acute Kidney failure Acute Metabolic acidosis Acute Renal failure Acute Shingles (herpes zoster) polyneuropathy Acute Uremia Acute Uremia Acute
[2017-01-22 12:27] VITALS: BP 160/64; PULSE 45; RESP 10; TEMP 97.3
--- NOTE | 2017-01-22 14:02 | PDDCSUM ---
Discharge Summary Discharge Summary: Dates of service 01/21-01/22/17 Discharge dx: # hyperkalemia # ESRD # anemia of ckd # htn # CAD Consultations: renal Procedures performed: HD Hospital course by problem: # hyperkalemia: requiring urgent HD and in the setting of ESRD without op access to HD. HD performed and K improved, return precautions stressed # esrd: without access to routine HD as above, will return for s/s of hyperkalemia/uremia/volume overload # anemia of ckd: stable, monitoring # htn: in part volume mediated, continue amlodipine, hydralazine. Decreased metoprolol to 12.5 given bradycardia # CAD: no acute issues DC home F/u with ER if s/s of need for HD occur, patient is clear what those are > 35 minutes spent in dc of patient more than half in coordination of care
[2017-01-22] MEDS ORDERED: HEPARIN 50,000 UNIT/10 ML VIAL ONE (15:40)
== END 2017-01-22 16:55 | disposition home or self-care (01) | DRG 640 ==
LOC: F2W 17:49
PROVIDERS: ADMIT Internal Medicine; ATTEND Internal Medicine
PROC: 5A1D60Z (ICD-10-PCS; principal; 2017-01-21)
DX: E87.5 Hyperkalemia (principal); I12.0 Hypertensive chronic kidney disease with stage 5 chronic kidney disease or end stage renal disease; N18.6 End stage renal disease; D63.1 Anemia in chronic kidney disease; I25.10 Atherosclerotic heart disease of native coronary artery without angina pectoris; Z72.0 Tobacco use
CPT/HCPCS: J1644

== ENCOUNTER 2017-01-28 14:02 | Inpatient (IN) | payer OTHER ==
[2017-01-28 15:18] LABS: % IMMATURE GRANULYOCYTES 0.2 % (0.0-1.1); ABSOLUTE IMMATURE GRANULOCYTES 0.01 10^3/uL (0.00-0.10); ADD DIFF? NO; ADD MORPH? NO; ADD SCAN? NO; ATYPICAL LYMPHOCYTE FLAG 0 (0-99); FRAGMENT RBC FLAG 0 (0-99); HEMATOCRIT 26.6 % (40.0-51.0); HEMOGLOBIN 8.8 g/dL (13.7-17.5); LEFT SHIFT FLG 0 (0-99); LIPEMIA HEMOLYSIS FLAG 80 (0-99); MEAN CELL HEMOGLOBIN 32.1 pg (27.9-34.1); MEAN CELL HEMOGLOBIN CONCENTR. 33.1 g/dL (32.4-36.7); MEAN CELL VOLUME 97.1 fL (81.5-99.8); PLATELET CLUMPS FLAG 10 (0-99); PLATELET COUNT 120 10^3/uL (150-400); RED BLOOD CELL COUNT 2.74 10^6/uL (4.40-6.38); RED CELL DISTRIBUTION WIDTH 16.2 % (11.5-15.2)
[2017-01-28 15:54] LABS: ANION GAP 26 mEq/L (8-16); CALCIUM 7.1 mg/dL (8.5-10.4); CARBON DIOXIDE 13 mEq/l (22-31); CHLORIDE 106 mEq/L (97-110); GLUCOSE 103 mg/dL (70-100); SODIUM 145 mEq/L (134-144)
--- NOTE | 2017-01-28 15:54 | EDPHY ---
HPI/HX/ROS/PE/MDM Narrative: CHIEF COMPLAINT: Needs dialysis HPI: The patient a 66 year old male with a history of end-stage renal disease who presents weekly to the Emergency Department for dialysis. The patient states his last hemodialysis was 7 days ago. He complains of abdominal fullness and some shortness of breath which is typical of his need for dialysis. He denies fever or any new symptoms. REVIEW OF SYSTEMS: Aside from elements discussed in the HPI, a comprehensive 10-point review of systems was reviewed and is negative. PMH: Chronic end-stage renal disease. SOCIAL HISTORY: Denies alcohol or drug abuse. PHYSICAL EXAM: General:Patient is alert, in no acute distress. Appears somewhat chronically ill. ENT:Eyes are normal to inspection. ENT inspection normal. Neck: Normal inspection. Full range of motion. Respiratory:No respiratory distress. Breath sounds normal bilaterally. Cardiovascular: Regular rate and rhythm. Strong peripheral pulses. Normal cap refill. Abdomen:The abdomen is nontender to palpation. There are no peritoneal signs. There are normal bowel sounds. Back: Normal to inspection. No tenderness to palpation. Skin: Normal color. No rash. Warm and dry. Extremities: Normal appearance. Full range of motion. Neuro: Oriented x3. Normal motor function. Normal sensory function. ED Course: 16:[address] White, hospitalist. He accepts admission for hyperkalemia and renal failure. MDM: This patient presents with typical symptoms of needing dialysis. His labs are consistent with this. He requires admission to the hospital for further treatment - Data Points Laboratory Results: Laboratory Results 01/28/17 15:09 01/28/17 15:09 01/28/17 01/28/17 15:09 15:09 WBC 5.21 10^3/uL 10^3/uL (3.80-9.50) RBC 2.74 10^6/uL L 10^6/uL (4.40-6.38) Hgb 8.8 g/dL L g/dL (13.7-17.5) Hct 26.6 % L % (40.0-51.0) MCV 97.1 fL fL (81.5-99.8) MCH 32.1 pg pg (27.9-34.1) MCHC 33.1 g/dL g/dL (32.4-36.7) RDW 16.2 % H % (11.5-15.2) Plt Count 120 10^3/uL L 10^3/uL (150-400) MPV 11.0 fL fL (8.7-11.7) Neut % (Auto) 61.3 % % (39.3-74.2) Lymph % (Auto) 19.0 % % (15.0-45.0) [place] % (Auto) 6.9 % % (4.5-13.0) Eos % (Auto) 11.1 % H % (0.6-7.6) Baso % (Auto) 1.5 % % (0.3-1.7) Nucleat RBC Rel Count 0.0 % % (0.0-0.2) Absolute Neuts (auto) 3.19 10^3/uL 10^3/uL (1.70-6.50) Absolute Lymphs (auto) 0.99 10^3/uL L 10^3/uL (1.00-3.00) Absolute Monos (auto) 0.36 10^3/uL 10^3/uL (0.30-0.80) Absolute Eos (auto) 0.58 10^3/uL H 10^3/uL (0.03-0.40) Absolute Basos (auto) 0.08 10^3/uL 10^3/uL (0.02-0.10) Absolute Nucleated RBC 0.00 10^3/uL 10^3/uL (0-0.01) Immature Gran % 0.2 % % (0.0-1.1) Immature Gran # 0.01 10^3/uL 10^3/uL (0.00-0.10) Sodium 145 mEq/L H mEq/L (134-144) Potassium 6.8 mEq/L H* mEq/L (3.5-5.2) Chloride 106 mEq/L mEq/L (97-110) Carbon Dioxide 13 mEq/l L mEq/l (22-31) Anion Gap 26 mEq/L H mEq/L (8-16) BUN 145 mg/dL H* mg/dL (7-23) Creatinine 17.5 mg/dL H* mg/dL (0.7-1.3) Estimated GFR 3 Glucose 103 mg/dL H mg/dL (70-100) Calcium 7.1 mg/dL L mg/dL (8.5-10.4) General Time Seen by Provider: 01/28/17 14:56 Initial Vital Signs: Initial Vital Signs Temperature (C) 36.7 C 01/28/17 14:04 Heart Rate 56 L 01/28/17 14:04 Respiratory Rate 18 01/28/17 14:04 Blood Pressure 132/86 H 01/28/17 14:04 O2 Sat (%) 96 01/28/17 14:04 O2 Delivery Mode Room Air Allergies/Adverse Reactions: No Known Allergies Allergy (Verified 01/28/17 14:03) Home Medications: Medication Instructions Recorded Atorvastatin Calcium [Lipitor 40 80 mg PO DAILY 10/30/16 mg (*)] Nitroglycerin [Nitrostat 0.4 mg 0.4 mg SL AD PRN 10/30/16 (*)] Sodium Bicarbonate [Na Bicarb] 1,300 mg PO DAILY 10/30/16 amLODIPine BESYLATE [Norvasc 10 mg 10 mg PO DAILY 10/30/16 (*)] Calcium Carbonate [Tums 500MG (*)] 500 mg PO TIDMEAL #90 tab.chew 11/01/16 Pantoprazole Sodium [Protonix 40mg 40 mg PO DAILY 12/03/16 (*)] Folic Acid/Vit B Com W/C 1 each PO DAILY 01/07/17 [Nephro-Peyton Rx] Cholecalciferol Vit D3 [Vitamin D3 50,000 unit PO TU 01/21/17 (*)] Hydralazine HCl 50 mg PO DAILY #30 tablet 01/22/17 Metoprolol Tartrate [Lopressor 25 12.5 mg PO BID #60 tab 01/22/17 mg (*)] Departure - Departure Disposition: [facility] [place] In[facility] Acute Clinical Impression: End stage renal disease, Hyperkalemia Condition: Fair Referrals: Jacqueline Rodriges MD [Primary Care Provider] - As per Instructions Report Scribed for: Justice Carmen Report Scribed by: Mely Noble Date of Report: 01/28/17 Time of Report: 15:54
[2017-01-28 16:12] LABS: CREATININE 17.5 mg/dL (0.7-1.3); GLOMERULAR FILTRATION RATE 3
[2017-01-28 16:13] LABS: POTASSIUM 6.8 mEq/L (3.5-5.2)
--- NOTE | 2017-01-28 19:36 | PDGENHP ---
History and Physical - Chief Complaint here for dialysis - History of Present Illness 67 y/o male with ESRD last HD was last Saturday. Continues to have diarrhea. No fevers or chills. No chest pain or shortness of breath. Rash on right ankle is improving. No other acute complaints. History Information - Allergies/Home Medication List Allergies/Adverse Reactions: No Known Allergies Allergy (Verified 01/28/17 14:03) Home Medications: Atorvastatin Calcium [Lipitor 40 mg (*)] 80 mg PO DAILY 10/30/16 [Last Taken ] Nitroglycerin [Nitrostat 0.4 mg (*)] 0.4 mg SL AD PRN 10/30/16 [Last Taken 01/20] Sodium Bicarbonate [Na Bicarb] 1,300 mg PO DAILY 10/30/16 [Last Taken 01/28/17] amLODIPine BESYLATE [Norvasc 10 mg (*)] 10 mg PO DAILY 10/30/16 [Last Taken ] Pantoprazole Sodium [Protonix 40mg (*)] 40 mg PO DAILY 12/03/16 [Last Taken ] Folic Acid/Vit B Com W/C [Nephro-Peyton Rx] 1 each PO DAILY 01/07/17 [Last Taken 01/28/17] Cholecalciferol Vit D3 [Vitamin D3 (*)] 50,000 unit PO TU 01/21/17 [Last Taken 01/22/17] I have personally reviewed and updated: family history, medical history, social history, surgical history - Past Medical History coronary artery disease (Known coronary disease but has not undergone interventional cardiac catheterization), ESRD, GI bleed, GERD (Anemia of chronic disease, H/O UGIB x2 (first on Plavix +ASA, then on ASA alone), esophagitis), hypertension Additional medical history: Anemia of chronic kidney disease; upper GI bleed in the setting of anti-platelet medications, has occurred while on single and double agent therapy; 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; esophagitis - Surgical History Additional surgical history: R IJ tunneled catheter - Family History Additional family history: Mother with CVA and HTN - Social History Smoking Status: Former smoker Additional social history: Continues to work on non-HD days Review of Systems ROS: 10pt was reviewed & negative except for what was stated in HPI & below Physical Exam Temp Pulse Resp BP Pulse Ox 36.5 C 56 L 18 137/101 H 92 01/28/17 19:25 01/28/17 19:25 01/28/17 19:25 01/28/17 19:25 01/28/17 19:25 Constitutional: no apparent distress, appears nourished, not in pain Eyes: PERRL, anicteric sclera, EOMI Ears, Nose, Mouth, Throat: moist mucous membranes, hearing normal, ears appear normal, no oral mucosal ulcers Cardiovascular: regular rate and rhythym, no murmur, rub, or gallop, other ( dialysis catheter right chest without signs of infection), No edema Respiratory: no respiratory distress, no rales or rhonchi, clear to auscultation Gastrointestinal: normoactive bowel sounds, soft, non-tender abdomen, no palpable masses, No guarding, No rebound Genitourinary: no bladder fullness, no bladder tenderness Skin: warm, normal color, no fluctuance, no induration, rash (right ankle improving), No mottled Musculoskeletal: full muscle strength, no muscle tenderness, normal joint ROM, no joint effusions Neurologic: AAOx3, CN II-XII Intact, No facial droop Psychiatric: interacting appropriately, not anxious, not encephalopathic, thought process linear Lymph, Heme, Immunologic: no cervical LAD, no supraclavicular LAD Lab Data & Imaging Review 01/28/17 15:09 01/28/17 15:09 WBC 5.21 10^3/uL (3.80-9.50) 01/28/17 15:09 RBC 2.74 10^6/uL (4.40-6.38) L 01/28/17 15:09 Hgb 8.8 g/dL (13.7-17.5) L 01/28/17 15:09 Hct 26.6 % (40.0-51.0) L 01/28/17 15:09 MCV 97.1 fL (81.5-99.8) 01/28/17 15:09 MCH 32.1 pg (27.9-34.1) 01/28/17 15:09 MCHC 33.1 g/dL (32.4-36.7) 01/28/17 15:09 RDW 16.2 % (11.5-15.2) H 01/28/17 15:09 Plt Count 120 10^3/uL (150-400) L 01/28/17 15:09 MPV 11.0 fL (8.7-11.7) 01/28/17 15:09 Neut % (Auto) 61.3 % (39.3-74.2) 01/28/17 15:09 Lymph % (Auto) 19.0 % (15.0-45.0) 01/28/17 15:09 Scott % (Auto) 6.9 % (4.5-13.0) 01/28/17 15:09 Eos % (Auto) 11.1 % (0.6-7.6) H 01/28/17 15:09 Baso % (Auto) 1.5 % (0.3-1.7) 01/28/17 15:09 Nucleat RBC Rel Count 0.0 % (0.0-0.2) 01/28/17 15:09 Absolute Neuts (auto) 3.19 10^3/uL (1.70-6.50) 01/28/17 15:09 Absolute Lymphs (auto) 0.99 10^3/uL (1.00-3.00) L 01/28/17 15:09 Absolute Monos (auto) 0.36 10^3/uL (0.30-0.80) 01/28/17 15:09 Absolute Eos (auto) 0.58 10^3/uL (0.03-0.40) H 01/28/17 15:09 Absolute Basos (auto) 0.08 10^3/uL (0.02-0.10) 01/28/17 15:09 Absolute Nucleated RBC 0.00 10^3/uL (0-0.01) 01/28/17 15:09 Immature Gran % 0.2 % (0.0-1.1) 01/28/17 15:09 Immature Gran # 0.01 10^3/uL (0.00-0.10) 01/28/17 15:09 Sodium 145 mEq/L (134-144) H 01/28/17 15:09 Potassium 6.8 mEq/L (3.5-5.2) H* 01/28/17 15:09 Chloride 106 mEq/L (97-110) 01/28/17 15:09 Carbon Dioxide 13 mEq/l (22-31) L 01/28/17 15:09 Anion Gap 26 mEq/L (8-16) H 01/28/17 15:09 BUN 145 mg/dL (7-23) H* 01/28/17 15:09 Creatinine 17.5 mg/dL (0.7-1.3) H* 01/28/17 15:09 Estimated GFR 3 01/28/17 15:09 Glucose 103 mg/dL (70-100) H 01/28/17 15:09 Calcium 7.1 mg/dL (8.5-10.4) L 01/28/17 15:09 Assessment & Plan Assessment: 67 y/o male with ESRD on HD but unable to establish at an outpatient center given his lack of insurance presents with #hyperkalemia -I discussed the case with the oncall exercise instruct Dr. Vallejo who will arrange emergent dialysis -Stat EKG and consider treatment if having ekg changes #ESRD stage v on HD -plan as per above #chronic diarrhea Dispo: Admit to inpatient
[2017-01-28] MEDS ORDERED: ACETAMINOPHEN 325 MG TAB PO PRN (19:37)
[2017-01-28] MEDS ORDERED: NITROGLYCERIN 0.4 MG BTL SL PRN (19:37)
[2017-01-28] MEDS ORDERED: ONDANSETRON 4 MG/2 ML VIAL IVP PRN (19:37)
--- NOTE | 2017-01-28 20:02 | SOAPPROG ---
SOAP Progress Note Assessment/Plan: Assessment: 1)ESRD- no access to regular outpt HD given citizenship status -emergent HD now and again in am given hyperkalemia -will do short run tonight with low Qb and will give mannitol as at risk for dialysis equilibrium (BUN 145) 2)hyperkalemia -HD now, monitor tele 3)Anemia of CKD -Hb 8.8- will give Epo 10,000 units x 1 -[facility] stores in October- will recheck am labs 4)MBD of CKD -check phos am labs, renal diet when po 5)metabolic acidosis -HD now -po bicarb as outpt 6)HTN -reasonable control currently I discussed with Dr. White My pager [phone] 01/28/17 20:19 Subjective: 67 M with h/o ESRD with no access to regular outpt HD given citizenship status presents to ER complaining of weakness, diarrhea. No sob, cp. K 6.8, BUN 145, bicarb 13. Denies any fevers, drainage from TDC. Objective: Vital Signs Temp Pulse Resp BP Pulse Ox 36.5 C 56 L 18 137/101 H 92 01/28/17 19:25 01/28/17 19:25 01/28/17 19:25 01/28/17 19:25 01/28/17 19:25 Physical Exam - Physical Exam General Appearance: no apparent distress, other (sitting in bed watching tv) EENT: other (mmm) Neck: supple, other (RIJ TDC no pain over palpation of tunnel) Respiratory: lungs clear Cardiac/Chest: regular rate, rhythm, other (no rub) Abdomen: normal bowel sounds, non-tender, soft Skin: warm/dry Extremities: other (trace LE edema bilat) Neuro/Psych: alert, normal mood/affect, oriented x 3 ICD10 Worksheet Patient Problems: Problems Problem Status Onset End stage renal disease Acute Hyperkalemia Acute Abdominal pain Acute Acute renal failure Acute Acute upper GI bleed Acute Anemia Acute Anemia associated with acute blood loss Acute Chronic renal failure Acute Diarrhea Acute End stage renal disease Acute Hyperkalemia Acute Hyperkalemia Acute Hyperkalemia Acute Hyperkalemia Acute Hyperkalemia Acute Hyperkalemia Acute Hyperkalemia Acute Hyperkalemia Acute Hypertension Acute Hypocalcemia Acute Kidney failure Acute Kidney failure Acute Kidney failure Acute Metabolic acidosis Acute Renal failure Acute Shingles (herpes zoster) polyneuropathy Acute Uremia Acute Uremia Acute
[2017-01-28] MEDS ORDERED: MANNITOL 20% 100 GM/500 ML BAG IV ONE (20:04)
[2017-01-28] MEDS ORDERED: MANNITOL 25% 12.5 GM/50 ML VIAL IVP ONE (20:15)
[2017-01-28] MEDS: HEPARIN 5,000 UNIT/0.5 ML SYR SC SCH (21:42)
[2017-01-28] MEDS: METOPROLOL TARTRATE 25 MG TAB PO SCH (21:42)
--- NOTE | 2017-01-29 01:07 | CPEKG ---
Heart Rate: 55 RR Interval: 1091 P-R Interval: 184 QRSD Interval: 84 QT Interval: 472 QTC Interval: 452 P [place]: 67 QRS [place]: 63 T Wave [place]: 67 EKG Severity - NORMAL ECG - EKG Impression: SINUS RHYTHM Electronically Signed By: Uday Amaya 29-Jan-2017 14:30:49
[2017-01-29 05:13] LABS: ANION GAP 20 mEq/L (8-16); CALCIUM 7.3 mg/dL (8.5-10.4); CARBON DIOXIDE 18 mEq/l (22-31); CHLORIDE 104 mEq/L (97-110); GLOMERULAR FILTRATION RATE 5; GLUCOSE 135 mg/dL (70-100); POTASSIUM 4.3 mEq/L (3.5-5.2); SODIUM 142 mEq/L (134-144)
[2017-01-29 05:14] LABS: CREATININE 10.9 mg/dL (0.7-1.3)
[2017-01-29] MEDS: HEPARIN 5,000 UNIT/0.5 ML SYR SC SCH ×3 (05:16→21:22)
[2017-01-29 05:21] LABS: % SATURATION 50 % (20-55); TOTAL IRON BINDING CAPACITY 219 ug/dL (260-490)
[2017-01-29] MEDS: PANTOPRAZOLE SODIUM 40 MG TAB PO SCH (07:51)
[2017-01-29] MEDS: SODIUM BICARBONATE 650 MG TAB PO SCH (07:51)
[2017-01-29] MEDS: CALCIUM CARBONATE 500 MG CHEWABLE TAB PO SCH ×3 (07:51→15:43)
[2017-01-29] MEDS ORDERED: EPOETIN ALFA 10,000 UNIT/ML VIAL SC SCH (09:00)
--- NOTE | 2017-01-29 11:49 | HOSPPROG ---
Hospitalist Progress Note Assessment/Plan: # hyperkalemia s/p emergent HD - improved # ESRD without benefits - HD likely again tomorrow Subjective: had HD today and last night Objective: Vital Signs Temp Pulse Resp BP Pulse Ox 36.8 C 62 16 139/71 H 93 01/29/17 04:00 01/29/17 04:00 01/29/17 04:00 01/29/17 04:00 01/29/17 04:00 Laboratory Results 01/29/17 04:00 01/28/17 01/29/17 01/30/17 05:59 05:59 05:59 Intake Total 310 Balance [address] Akhtar - likely HD tomorrow ECG personally reviewed - Physical Exam Constitutional: no apparent distress, appears nourished Cardiovascular: regular rate and rhythym, no murmur, rub, or gallop Respiratory: no respiratory distress, no rales or rhonchi Gastrointestinal: normoactive bowel sounds, soft, non-tender abdomen, no palpable masses ICD10 Worksheet Patient Problems: Problems Problem Status Onset Acute renal failure Acute Anemia Acute Abdominal pain Acute Hyperkalemia Acute Hypocalcemia Acute Renal failure Acute Hypertension Acute Acute upper GI bleed Acute Anemia associated with acute blood loss Acute End stage renal disease Acute Metabolic acidosis Acute Diarrhea Acute Shingles (herpes zoster) polyneuropathy Acute Kidney failure Acute Hyperkalemia Acute Chronic renal failure Acute Hyperkalemia Acute Kidney failure Acute Hyperkalemia Acute Kidney failure Acute Uremia Acute Hyperkalemia Acute Hyperkalemia Acute Hyperkalemia Acute Hyperkalemia Acute Uremia Acute Hyperkalemia Acute End stage renal disease Acute
[2017-01-29] MEDS: NEPHROVITE FOLIC ACID/VIT B&C 1 TAB PO SCH (11:57)
[2017-01-29] MEDS: METOPROLOL TARTRATE 25 MG TAB PO SCH ×2 (11:57→21:21)
[2017-01-29] MEDS: ATORVASTATIN CALCIUM 40 MG TAB PO SCH (11:57)
[2017-01-29] MEDS ORDERED: HEPARIN 50,000 UNIT/10 ML VIAL ONE (14:00)
--- NOTE | 2017-01-29 14:34 | SOAPPROG ---
JACQUELINE Progress Note Assessment/Plan: Assessment: 1. esrd: s/p brief hd late last night and full rx this am. K markedly improved this am but drawn 2-3hrs post-hd therefore may have still been artifactually low. He typically takes more than a single treatment to fully normalize. Will plan to dialyze again in am, he can be d/c'd after hd completed Sat. 2. HyperK: resolved on am labs but potentially artifactual as above due to proximity to previous hd. Hd again Sat. 3. anemia: epo Plan: 01/29/17 14:31 Subjective: Uneventful brief hd last night, had full hd this am again without TYSON or other issue. Tired but overall feeling better. Objective: Vital Signs Temp Pulse Resp BP Pulse Ox 36.3 C 54 L 14 142/81 H 98 01/29/17 11:46 01/29/17 11:46 01/29/17 11:46 01/29/17 11:46 01/29/17 11:46 Laboratory Results 01/29/17 04:00 01/28/17 01/29/17 01/30/17 05:59 05:59 05:59 Intake Total 310 Balance 310 Physical Exam - Physical Exam General Appearance: no apparent distress Respiratory: lungs clear Cardiac/Chest: regular rate, rhythm, other (no rub) Extremities: swelling (none) ICD10 Worksheet Patient Problems: Problems Problem Status Onset End stage renal disease Acute Hyperkalemia Acute Abdominal pain Acute Acute renal failure Acute Acute upper GI bleed Acute Anemia Acute Anemia associated with acute blood loss Acute Chronic renal failure Acute Diarrhea Acute End stage renal disease Acute Hyperkalemia Acute Hyperkalemia Acute Hyperkalemia Acute Hyperkalemia Acute Hyperkalemia Acute Hyperkalemia Acute Hyperkalemia Acute Hyperkalemia Acute Hypertension Acute Hypocalcemia Acute Kidney failure Acute Kidney failure Acute Kidney failure Acute Metabolic acidosis Acute Renal failure Acute Shingles (herpes zoster) polyneuropathy Acute Uremia Acute Uremia Acute
[2017-01-29] MEDS ORDERED: CHOLECALCIFEROL VIT D3 50,000 UNIT CAP PO SCH (19:37)
[2017-01-30] MEDS: HEPARIN 5,000 UNIT/0.5 ML SYR SC SCH ×2 (05:17→15:26)
[2017-01-30 06:47] LABS: ALBUMIN 3.8 g/dL (3.5-5.0); ANION GAP 17 mEq/L (8-16); CALCIUM 7.5 mg/dL (8.5-10.4); CARBON DIOXIDE 19 mEq/l (22-31); CHLORIDE 102 mEq/L (97-110); CREATININE 7.2 mg/dL (0.7-1.3); GLOMERULAR FILTRATION RATE 8; GLUCOSE 94 mg/dL (70-100); SODIUM 138 mEq/L (134-144)
--- NOTE | 2017-01-30 08:40 | SOAPPROG ---
SOEDY Progress Note Assessment/Plan: Assessment:Plan: ESRD-stable on dialysis -volume status and electrolytes okay -likely home after dialysis today Access-tunneled catheter Hyperkalemia-resolved Azotemia-had short run first dialysis with Mannitol -patient tolerated dialysis well without dialysis dysequilibrium syndrome 01/30/17 08:37 Subjective: stable on dialysis Objective: Vital Signs Temp Pulse Resp BP Pulse Ox 36.6 C 51 L 14 115/66 95 01/30/17 04:00 01/30/17 04:00 01/30/17 04:00 01/30/17 04:00 01/30/17 04:00 Laboratory Results 01/30/17 05:30 01/29/17 01/30/17 01/31/17 05:59 05:59 05:59 Intake Total 310 200 Output Total 1000 Balance 310 -800 Physical Exam - Physical Exam General Appearance: WD/WN, alert, no apparent distress, thin EENT: normal ENT inspection Neck: normal inspection Respiratory: lungs clear, normal breath sounds, No respiratory distress Cardiac/Chest: regular rate, rhythm Abdomen: normal bowel sounds Extremities: No swelling ICD10 Worksheet Patient Problems: Problems Problem Status Onset End stage renal disease Acute Hyperkalemia Acute Abdominal pain Acute Acute renal failure Acute Acute upper GI bleed Acute Anemia Acute Anemia associated with acute blood loss Acute Chronic renal failure Acute Diarrhea Acute End stage renal disease Acute Hyperkalemia Acute Hyperkalemia Acute Hyperkalemia Acute Hyperkalemia Acute Hyperkalemia Acute Hyperkalemia Acute Hyperkalemia Acute Hyperkalemia Acute Hypertension Acute Hypocalcemia Acute Kidney failure Acute Kidney failure Acute Kidney failure Acute Metabolic acidosis Acute Renal failure Acute Shingles (herpes zoster) polyneuropathy Acute Uremia Acute Uremia Acute
[2017-01-30] MEDS: CALCIUM CARBONATE 500 MG CHEWABLE TAB PO SCH ×2 (08:47→14:48)
--- NOTE | 2017-01-30 09:16 | GDS ---
[f rep st] DISCHARGE SUMMARY ALL DIAGNOSES: 1. Hyperkalemia. 2. End-stage renal disease, without benefits. HOSPITAL COURSE: A 67-year-old man with end-stage renal disease, without benefits, presents with cr itical hyperkalemia. His potassium was 6.8. He underwent a half run of emergent dialysis on admiss ion. He has undergone 2 additional runs of dialysis. He will be discharged in stable condition, on his previous medications without change. /[id number]/MODL
[2017-01-30 11:02] VITALS: PULSE 53; RESP 12; TEMP 97.4; O2SAT 96
[2017-01-30] MEDS: ATORVASTATIN CALCIUM 40 MG TAB PO SCH (11:19)
[2017-01-30] MEDS: NEPHROVITE FOLIC ACID/VIT B&C 1 TAB PO SCH (11:19)
[2017-01-30] MEDS: SODIUM BICARBONATE 650 MG TAB PO SCH (11:20)
[2017-01-30] MEDS ORDERED: HEPARIN 50,000 UNIT/10 ML VIAL ONE (11:20)
[2017-01-30] MEDS: PANTOPRAZOLE SODIUM 40 MG TAB PO SCH (11:20)
[2017-01-30 11:24] VITALS: BP 129/60
[2017-01-30] MEDS: METOPROLOL TARTRATE 25 MG TAB PO SCH (11:35)
== END 2017-01-30 14:40 | disposition home or self-care (01) | DRG 640 ==
LOC: F2W 17:35 → OBSVTOIN 19:38 → F3E 01-29 17:44
PROVIDERS: ADMIT Family Medicine; ATTEND Student in an Organized Health Care Education/Training Program
PROC: 5A1D60Z (ICD-10-PCS; principal; 2017-01-28)
DX: E87.5 Hyperkalemia (principal); N18.6 End stage renal disease; I12.0 Hypertensive chronic kidney disease with stage 5 chronic kidney disease or end stage renal disease; D63.1 Anemia in chronic kidney disease; E87.2 Acidosis; I25.10 Atherosclerotic heart disease of native coronary artery without angina pectoris; K21.0 Gastro-esophageal reflux disease with esophagitis; Z59.7 Insufficient social insurance and welfare support; Z91.15 Patient's noncompliance with renal dialysis; Z99.2 Dependence on renal dialysis; Z82.49 Family history of ischemic heart disease and other diseases of the circulatory system; Z87.891 Personal history of nicotine dependence; Z79.82 Long term (current) use of aspirin
CPT/HCPCS: J0885; J1644; J2150

== ENCOUNTER 2017-02-04 12:16 | Inpatient (IN) | payer OTHER ==
--- NOTE | 2017-02-04 12:46 | EDPHY ---
H & P Stated Complaint: here for dialysis HPI/ROS: CHIEF COMPLAINT: "I need dialysis" HISTORY OF PRESENT ILLNESS: Patient complains of needing dialysis. He is well established in this emergency department for dialysis visits. End-stage renal disease requiring dialysis but the patient has no health care and has been unable to obtain outpatient dialysis. He reports ongoing diarrhea. He has no chest pain but he does have some shortness of breath and increasing swelling in lower extremities. No other associated complaints or modifying factors. Last dialysis was here 1 week ago. No other associated complaints or modifying factors. REVIEW OF SYSTEMS: Ten systems reviewed and are negative unless otherwise noted in the HPI PAST MEDICAL HISTORY: Reviewed EXAMINATION General Appearance: Alert, no distress Head: normocephalic, atraumatic Eyes: Pupils equal and round, no conjunctival pallor or injection ENT, Mouth: Mucous membranes moist. Uvula midline. Airway widely patent Neck: Normal inspection, supple, non-tender Respiratory: Mild diminishment in the bases. Mild crackles in the bases. No retractions or distress Cardiovascular: Regular rate and rhythm. No murmur Gastrointestinal: Abdomen is soft and nontender Back: non-tender, no bony abnormalities Neurological: A&O, nonfocal, normal gait Skin: Warm and dry. Nonspecific, states this rash of the lower extremities. No cellulitis or abscess. Extremities: Nontender, symmetric lower extremity pedal edema. Psychiatric: Mood and affect normal DIFFERENTIAL DIAGNOSES: Including but not limited to end-stage renal disease on dialysis, hyperkalemia, volume overload MDM: 12:45 p.m. Patient reports for dialysis. He is well established as emergency department for intermittent dialysis. He has no chest pain. He does have some shortness of breath and swelling of the legs. No fever chills. Last dialyzed last Saturday /Saturday here. No acute distress. EKG, i-STAT laboratory studies have been ordered. 1:15 p.m. I have re-evaluated the patient. They are still attempting to obtain an I-STAT laboratory study. I stressed the importance of the has had EKG given the patient's clinical scenario. 1:18 p.m. CBC reveals a hemoglobin of 7.7. He is not tachycardic or hypotensive. He does have anemia of chronic disease. I have ordered a type and screen, but I do not feel he needs emergent transfusion. 1:35 p.m. I discussed the case with the on-call head of transport logistics Dr. Chin. She will provide consultation. She says that it will be at least 2 hours for his dialyzed so she recommends medications to shift the potassium back intracellular in the meantime. She recommends insulin, dextrose and 1 g of calcium gluconate. I have a here to these recommendations. Proceed with admission to the hospital for further care. He remains awake alert no acute distress. Vital signs are stable. 1:40 p.m. I discussed case with the hospitalist Dr. Otto. He agrees with admission to the hospital. I have admitted the patient stable condition to Dr. Scott. Proceed with medications until patient may be dialyzed. SUPERVISION: Patient was evaluated in conjunction with the supervising physician. Please see their note for details. 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, Family, Old records Exam Limitations: No limitations - Personal History Current Tetanus/Diphtheria Vaccine: Yes Tetanus Vaccine Date: 2010 - Medical/Surgical History Hx Asthma: No Hx Chronic Respiratory Disease: No Hx Diabetes: No Hx Cardiac Disease: Yes Hx Renal Disease: Yes Hx Cirrhosis: No Hx Alcoholism: No Hx HIV/AIDS: No Hx Splenectomy or Spleen Trauma: No Other PMH: gout, htn, hernia, anemia, cad, esophagitis, GIB on plavix, ESRD, dialysis, heart stent, shingles - Social History Smoking Status: Former smoker Constitutional: Initial Vital Signs Temperature (C) 98.2 F 02/04/17 12:20 Heart Rate 54 L 02/04/17 12:20 Respiratory Rate 16 02/04/17 12:20 Blood Pressure 152/67 H 02/04/17 12:20 O2 Sat (%) 97 02/04/17 12:20 O2 Delivery Mode Room Air Allergies/Adverse Reactions: No Known Allergies Allergy (Verified 02/04/17 12:19) Home Medications: Medication Instructions Recorded Atorvastatin Calcium [Lipitor 40 80 mg PO DAILY 10/30/16 mg (*)] Nitroglycerin [Nitrostat 0.4 mg 0.4 mg SL AD PRN 10/30/16 (*)] Sodium Bicarbonate [Na Bicarb] 1,300 mg PO DAILY 10/30/16 amLODIPine BESYLATE [Norvasc 10 mg 10 mg PO DAILY 10/30/16 (*)] Calcium Carbonate [Tums 500MG (*)] 500 mg PO TIDMEAL #90 tab.chew 11/01/16 Pantoprazole Sodium [Protonix 40mg 40 mg PO DAILY 12/03/16 (*)] Folic Acid/Vit B Com W/C 1 each PO DAILY 01/07/17 [Nephro-Peyton Rx] Cholecalciferol Vit D3 [Vitamin D3 50,000 unit PO TU 01/21/17 (*)] Hydralazine HCl 50 mg PO DAILY #30 tablet 01/22/17 Metoprolol Tartrate [Lopressor 25 12.5 mg PO BID #60 tab 01/22/17 mg (*)] Medical Decision Making - Diagnostics Imaging Results: Imaging Impressions Chest X-Ray 02/04/17 12:41 Impression: Negative chest. Dialysis catheter. - Data Points Laboratory Results: Laboratory Results 02/04/17 13:04 02/04/17 13:04 02/04/17 02/04/17 02/04/17 13:30 13:30 13:09 WBC RBC Hgb POC Hgb 8.5 gm/dL L gm/dL (13.7-17.5) Hct POC Hct 25 % L % (40-51) MCV MCH MCHC RDW Plt Count MPV Neut % (Auto) Lymph % (Auto) [place] % (Auto) Eos % (Auto) Baso % (Auto) Nucleat RBC Rel Count Absolute Neuts (auto) Absolute Lymphs (auto) Absolute Monos (auto) Absolute Eos (auto) Absolute Basos (auto) Absolute Nucleated RBC Immature Gran % Immature Gran # Puncture Site NONE GIVEN Patient Temperature 37.0 DEGREES DEGREES VBG pH 7.22 L (7.31-7.42) VBG HCO3 15 mEQ/L L mEQ/L (22-26) VBG Total CO2 16 mEq/L L mEq/L (23-27) VBG O2 Saturation 90 % H % (65-75) VBG Base Excess -11.5 mEq/L L mEq/L (-2.5-2.5) Mixed VBG pCO2 38 mmHg L mmHg (40-44) Mixed VBG pO2 73 mmHg H mmHg (35-40) POC Sodium 141 mEq/L mEq/L (134-144) Sodium POC Potassium 6.7 mEq/L H* mEq/L (3.3-5.0) Potassium POC Chloride 108 mEq/L mEq/L (97-110) Chloride Carbon Dioxide Anion Gap POC BUN 129 mg/dL H* mg/dL (7-23) BUN Creatinine POC Creatinine 15.0 mg/dL H* mg/dL (0.7-1.3) Estimated GFR Glucose POC Glucose 102 mg/dL H mg/dL (70-100) Calcium Phosphorus Magnesium Total Bilirubin Conjugated Bilirubin Unconjugated Bilirubin AST ALT Alkaline Phosphatase Total Protein Albumin Patient ABO/Rh O POSITIVE Antibody Screen NEGATIVE 02/04/17 02/04/17 13:04 13:04 WBC 5.42 10^3/uL 10^3/uL (3.80-9.50) RBC 2.39 10^6/uL L 10^6/uL (4.40-6.38) Hgb 7.7 g/dL L g/dL (13.7-17.5) POC Hgb Hct 23.6 % L % (40.0-51.0) POC Hct MCV 98.7 fL fL (81.5-99.8) MCH 32.2 pg pg (27.9-34.1) MCHC 32.6 g/dL g/dL (32.4-36.7) RDW 16.2 % H % (11.5-15.2) Plt Count 126 10^3/uL L 10^3/uL (150-400) MPV 10.3 fL fL (8.7-11.7) Neut % (Auto) 66.1 % % (39.3-74.2) Lymph % (Auto) 16.6 % % (15.0-45.0) [place] % (Auto) 7.0 % % (4.5-13.0) Eos % (Auto) 9.0 % H % (0.6-7.6) Baso % (Auto) 0.9 % % (0.3-1.7) Nucleat RBC Rel Count 0.0 % % (0.0-0.2) Absolute Neuts (auto) 3.58 10^3/uL 10^3/uL (1.70-6.50) Absolute Lymphs (auto) 0.90 10^3/uL L 10^3/uL (1.00-3.00) Absolute Monos (auto) 0.38 10^3/uL 10^3/uL (0.30-0.80) Absolute Eos (auto) 0.49 10^3/uL H 10^3/uL (0.03-0.40) Absolute Basos (auto) 0.05 10^3/uL 10^3/uL (0.02-0.10) Absolute Nucleated RBC 0.00 10^3/uL 10^3/uL (0-0.01) Immature Gran % 0.4 % % (0.0-1.1) Immature Gran # 0.02 10^3/uL 10^3/uL (0.00-0.10) Puncture Site Patient Temperature VBG pH VBG HCO3 VBG Total CO2 VBG O2 Saturation VBG Base Excess Mixed VBG pCO2 Mixed VBG pO2 POC Sodium Sodium 147 mEq/L H mEq/L (134-144) POC Potassium Potassium 6.9 mEq/L H* mEq/L (3.5-5.2) POC Chloride Chloride 109 mEq/L mEq/L (97-110) Carbon Dioxide 12 mEq/l L mEq/l (22-31) Anion Gap 26 mEq/L H mEq/L (8-16) POC BUN BUN 116 mg/dL H* mg/dL (7-23) Creatinine 14.5 mg/dL H* mg/dL (0.7-1.3) POC Creatinine Estimated GFR 3 Glucose 105 mg/dL H mg/dL (70-100) POC Glucose Calcium 7.6 mg/dL L mg/dL (8.5-10.4) Phosphorus 5.9 mg/dL H mg/dL (2.5-4.5) Magnesium 1.7 mg/dL mg/dL (1.6-2.3) Total Bilirubin 0.5 mg/dL mg/dL (0.1-1.4) Conjugated Bilirubin 0.5 mg/dL mg/dL (0.0-0.5) Unconjugated Bilirubin 0.0 mg/dL mg/dL (0.0-1.1) AST 9 IU/L L IU/L (17-59) ALT 28 IU/L IU/L (21-72) Alkaline Phosphatase 158 IU/L H IU/L (38-126) Total Protein 6.5 g/dL g/dL (6.3-8.2) Albumin 4.4 g/dL g/dL (3.5-5.0) Patient ABO/Rh Antibody Screen Medications Given: Discontinued Medications Calcium Gluconate (Calcium Gluconate) 1 gm IVP EDNOW ONE Stop: 02/04/17 13:34 Last Admin: 02/04/17 13:56 Dose: 1 gm Dextrose (Dextrose 50% Syringe) 25 gm IVP EDNOW ONE Stop: 02/04/17 13:34 Last Admin: 02/04/17 14:15 Dose: 25 gm Insulin Human Regular (Humulin R) 10 unit IVP EDNOW ONE Stop: 02/04/17 13:34 Last Admin: 02/04/17 14:19 Dose: 10 units Point of Care Test Results: 02/04/17 13:09 POC Sodium 141 POC Potassium 6.7 H* POC Chloride 108 POC BUN 129 H* POC Creatinine 15.0 H* POC Glucose 102 H Departure - Departure Disposition: [facility] Inpatient Acute Clinical Impression: Hyperkalemia, ESRD (end stage renal disease), Anemia, chronic disease Condition: Fair
[2017-02-04 13:08] LABS: % IMMATURE GRANULYOCYTES 0.4 % (0.0-1.1); ABSOLUTE IMMATURE GRANULOCYTES 0.02 10^3/uL (0.00-0.10); ADD DIFF? NO; ADD MORPH? NO; ADD SCAN? NO; ATYPICAL LYMPHOCYTE FLAG 0 (0-99); FRAGMENT RBC FLAG 0 (0-99); HEMATOCRIT 23.6 % (40.0-51.0); HEMOGLOBIN 7.7 g/dL (13.7-17.5); LEFT SHIFT FLG 0 (0-99); LIPEMIA HEMOLYSIS FLAG 80 (0-99); MEAN CELL HEMOGLOBIN 32.2 pg (27.9-34.1); MEAN CELL HEMOGLOBIN CONCENTR. 32.6 g/dL (32.4-36.7); MEAN CELL VOLUME 98.7 fL (81.5-99.8); MEAN PLATELET VOLUME 10.3 fL (8.7-11.7); PLATELET CLUMPS FLAG 0 (0-99); PLATELET COUNT 126 10^3/uL (150-400); RED BLOOD CELL COUNT 2.39 10^6/uL (4.40-6.38); RED CELL DISTRIBUTION WIDTH 16.2 % (11.5-15.2)
--- NOTE | 2017-02-04 13:17 | CPEKG ---
Heart Rate: 49 RR Interval: 1224 P-R Interval: 180 QRSD Interval: 92 QT Interval: 488 QTC Interval: 441 P [place]: 65 QRS [place]: 63 T Wave [place]: 65 EKG Severity - OTHERWISE NORMAL ECG - EKG Impression: SINUS BRADYCARDIA EKG Impression: Moderately peaked T-waves Electronically Signed By: Gibson Victoria 04-Feb-2017 13:35:56
[2017-02-04] MEDS ORDERED: CALCIUM GLUC 10% 1 GM/10 ML VIAL IVP ONE (13:33)
[2017-02-04] MEDS ORDERED: D50W 25 GM/50 ML SYR IVP ONE (13:33)
[2017-02-04] MEDS ORDERED: INSULIN REGULAR HUMAN 100 UNIT/ML IVP ONE (13:33)
[2017-02-04] MEDS ORDERED: INSULIN REGULAR HUMAN 10 UNIT, COSIGN. REQUIRED 1 EA in D10W 500 ML IV ONE (13:33)
[2017-02-04 13:37] LABS: ALANINE AMINOTRANSFERASE 28 IU/L (21-72); ALBUMIN 4.4 g/dL (3.5-5.0); ALKALINE PHOSPHATASE 158 IU/L (38-126); ANION GAP 26 mEq/L (8-16); ASPARTATE AMINOTRANSFERASE 9 IU/L (17-59); BILIRUBIN,TOTAL 0.5 mg/dL (0.1-1.4); BILIRUBIN-CONJUGATED 0.5 mg/dL (0.0-0.5); CALCIUM 7.6 mg/dL (8.5-10.4); CARBON DIOXIDE 12 mEq/l (22-31); CHLORIDE 109 mEq/L (97-110); GLUCOSE 105 mg/dL (70-100); MAGNESIUM 1.7 mg/dL (1.6-2.3); SODIUM 147 mEq/L (134-144); TOTAL PROTEIN 6.5 g/dL (6.3-8.2)
[2017-02-04 13:41] LABS: PCO2 VENOUS 38 mmHg (40-44); PH VENOUS BLOOD 7.22 (7.31-7.42); PO2 VENOUS 73 mmHg (35-40); TCO2 VENOUS 16 mEq/L (23-27); VEN MEASURED OXYGEN SATURATION 90 % (65-75)
[2017-02-04] MEDS ORDERED: D50W 25 GM/50 ML VIAL ONE (13:48)
[2017-02-04 14:06] LABS: POTASSIUM 6.9 mEq/L (3.5-5.2)
[2017-02-04 14:30] LABS: GLOMERULAR FILTRATION RATE 3
[2017-02-04 14:31] LABS: CREATININE 14.5 mg/dL (0.7-1.3)
[2017-02-04] MEDS ORDERED: ACETAMINOPHEN 325 MG TAB PO PRN (14:35)
[2017-02-04] MEDS ORDERED: NITROGLYCERIN 0.4 MG BTL SL PRN (14:37)
--- NOTE | 2017-02-04 15:22 | SOAPPROG ---
SOAP Progress Note Assessment/Plan: Assessment: 1)ESRD- no access to regular outpt HD given citizenship status -emergent HD now and again in am -low Qb and will give mannitol as at risk for dialysis equilibrium and has had this in the past and BUN 115 today 2)Hyperkalemia -HD now with 2K bath, monitor tele -shifted with 10u regular insulin and amp d50 -not currently taking his kayexalate, not on MAR and may consider adding lasix as outpatient 3)Anemia of CKD -h/o GI bleeding, will hold heparin on HD -Hb not at goal, received EPO last visit less than 1 week ago -iron stores in January 4)MBD of CKD -phos 5.6, not on binders -will improve with HD -low calcium, given 1g Ca gluconate and will use 2.5mEq bath 5)Metabolic acidosis -HD now -po bicarb as outpt, may need increased to 2 tabs tid 6)HTN -BP's 150's-170's currently -will UF 1-2kg today and reevaluate tomorrow -continue home dose of metoprolol and amlodipine -may consider adding lasix upon discharge 02/04/17 15:30 Subjective: The patient is a 67 y/o M, ESRD, obtaining emergent dialysis only. Last dialyzed on 01/28. Presented to the ED c/o nausea today and found to have potassium of 6.7mg/dL. The patient is awake and alert. He admits that he often does not take his kayexalate due to the GI side effects. He denies SOB, CP, LE edema, or any other recent issues. Using a TDC with no fevers, chills, or pain. Still makes good UO. Objective: Vital Signs Temp Pulse Resp BP Pulse Ox 36.6 C 50 L 16 119/56 L 98 02/04/17 15:13 02/04/17 15:13 02/04/17 15:13 02/04/17 15:13 02/04/17 15:13 02/03/17 02/04/17 02/05/17 05:59 05:59 05:59 Intake Total 100 Balance 100 Physical Exam - Physical Exam General Appearance: alert, no apparent distress, thin EENT: normal ENT inspection Neck: non-tender, full range of motion, supple Respiratory: chest non-tender, lungs clear, normal breath sounds, other (R TDC in place with no erythema or tenderness to touch) Cardiac/Chest: normal peripheral pulses, regular rate, rhythm Abdomen: normal bowel sounds, non-tender, soft Skin: normal color, warm/dry Extremities: normal range of motion, non-tender Neuro/Psych: no motor/sensory deficits, alert, normal mood/affect ICD10 Worksheet Patient Problems: Problems Problem Status Onset Anemia, chronic disease Acute ESRD (end stage renal disease) Acute Hyperkalemia Acute Abdominal pain Acute Acute renal failure Acute Acute upper GI bleed Acute Anemia Acute Anemia associated with acute blood loss Acute Chronic renal failure Acute Diarrhea Acute End stage renal disease Acute End stage renal disease Acute Hyperkalemia Acute Hyperkalemia Acute Hyperkalemia Acute Hyperkalemia Acute Hyperkalemia Acute Hyperkalemia Acute Hyperkalemia Acute Hyperkalemia Acute Hyperkalemia Acute Hypertension Acute Hypocalcemia Acute Kidney failure Acute Kidney failure Acute Kidney failure Acute Metabolic acidosis Acute Renal failure Acute Shingles (herpes zoster) polyneuropathy Acute Uremia Acute Uremia Acute
--- NOTE | 2017-02-04 15:32 | PDGENHP ---
History and Physical - Chief Complaint Acute diarrhea - History of Present Illness 67-year-old male presents with acute diarrhea characterized as nonbloody, nonmelanotic loose stool with onset of symptoms 2-3 days ago associated with increased lower extremity edema located in the bilateral shins. He otherwise denies any shortness of breath or chest pain. He reports that he has not been taking Kayexalate because it exacerbates diarrhea. He has been taking all of his home medications. She reports that the diarrhea was recently alleviated by dialysis and was absent for the 1st few days since he left the hospital. History Information - Allergies/Home Medication List Allergies/Adverse Reactions: No Known Allergies Allergy (Verified 02/04/17 12:19) Home Medications: Atorvastatin Calcium [Lipitor 40 mg (*)] 80 mg PO DAILY 10/30/16 [Last Taken ] Nitroglycerin [Nitrostat 0.4 mg (*)] 0.4 mg SL AD PRN 10/30/16 [Last Taken 01/20] Sodium Bicarbonate [Na Bicarb] 1,300 mg PO DAILY 10/30/16 [Last Taken 01/28/17] amLODIPine BESYLATE [Norvasc 10 mg (*)] 10 mg PO DAILY 10/30/16 [Last Taken ] Pantoprazole Sodium [Protonix 40mg (*)] 40 mg PO DAILY 12/03/16 [Last Taken ] Folic Acid/Vit B Com W/C [Nephro-Peyton Rx] 1 each PO DAILY 01/07/17 [Last Taken 01/28/17] Cholecalciferol Vit D3 [Vitamin D3 (*)] 50,000 unit PO TU 01/21/17 [Last Taken 01/22/17] I have personally reviewed and updated: family history, medical history, social history, surgical history - Past Medical History coronary artery disease (Known coronary disease but has not undergone interventional cardiac catheterization), ESRD, GI bleed, GERD (Anemia of chronic disease, H/O UGIB x2 (first on Plavix +ASA, then on ASA alone), esophagitis), hypertension Additional medical history: Anemia of chronic kidney disease; upper GI bleed in the setting of anti-platelet medications, has occurred while on single and double agent therapy; 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; esophagitis - Surgical History Additional surgical history: R IJ tunneled catheter - Family History Additional family history: Mother with CVA and HTN - Social History Smoking Status: Former smoker Alcohol Use: None Drug Use: None Additional social history: Continues to work on non-HD days Review of Systems ROS: 10pt was reviewed & negative except for what was stated in HPI & below Cardiac: Reports: edema Gastrointestinal: Reports: diarrhea Physical Exam Temp Pulse Resp BP Pulse Ox 36.6 C 50 L 16 119/56 L 98 02/04/17 15:13 02/04/17 15:13 02/04/17 15:13 02/04/17 15:13 02/04/17 15:13 Constitutional: no apparent distress, not in pain, chronically ill appearing, other ( Very thin-appearing), No uncomfortable Eyes: PERRL, anicteric sclera, EOMI Ears, Nose, Mouth, Throat: moist mucous membranes, hearing normal, ears appear normal, no oral mucosal ulcers Cardiovascular: systolic murmur ( 1/6 at all valve location), JVD, edema ( trace bilateral lower extremity), No irregularly irregular, No tachycardia Respiratory: no respiratory distress, no rales or rhonchi, clear to auscultation Gastrointestinal: normoactive bowel sounds, soft, non-tender abdomen, no palpable masses, No distension Skin: warm, normal color, no rashes or abrasions, no fluctuance, no induration, No mottled Neurologic: AAOx3, sensation intact bilaterally, No weakness ( motor strength 5/ 5 bilateral lower extremities) Psychiatric: interacting appropriately, not anxious, not encephalopathic, thought process linear Lab Data & Imaging Review 02/04/17 13:04 02/04/17 13:04 WBC 5.42 10^3/uL (3.80-9.50) 02/04/17 13:04 RBC 2.39 10^6/uL (4.40-6.38) L 02/04/17 13:04 Hgb 7.7 g/dL (13.7-17.5) L 02/04/17 13:04 POC Hgb 8.5 gm/dL (13.7-17.5) L 02/04/17 13:09 Hct 23.6 % (40.0-51.0) L 02/04/17 13:04 POC Hct 25 % (40-51) L 02/04/17 13:09 MCV 98.7 fL (81.5-99.8) 02/04/17 13:04 MCH 32.2 pg (27.9-34.1) 02/04/17 13:04 MCHC 32.6 g/dL (32.4-36.7) 02/04/17 13:04 RDW 16.2 % (11.5-15.2) H 02/04/17 13:04 Plt Count 126 10^3/uL (150-400) L 02/04/17 13:04 MPV 10.3 fL (8.7-11.7) 02/04/17 13:04 Neut % (Auto) 66.1 % (39.3-74.2) 02/04/17 13:04 Lymph % (Auto) 16.6 % (15.0-45.0) 02/04/17 13:04 [place] % (Auto) 7.0 % (4.5-13.0) 02/04/17 13:04 Eos % (Auto) 9.0 % (0.6-7.6) H 02/04/17 13:04 Baso % (Auto) 0.9 % (0.3-1.7) 02/04/17 13:04 Nucleat RBC Rel Count 0.0 % (0.0-0.2) 02/04/17 13:04 Absolute Neuts (auto) 3.58 10^3/uL (1.70-6.50) 02/04/17 13:04 Absolute Lymphs (auto) 0.90 10^3/uL (1.00-3.00) L 02/04/17 13:04 Absolute Monos (auto) 0.38 10^3/uL (0.30-0.80) 02/04/17 13:04 Absolute Eos (auto) 0.49 10^3/uL (0.03-0.40) H 02/04/17 13:04 Absolute Basos (auto) 0.05 10^3/uL (0.02-0.10) 02/04/17 13:04 Absolute Nucleated RBC 0.00 10^3/uL (0-0.01) 02/04/17 13:04 Immature Gran % 0.4 % (0.0-1.1) 02/04/17 13:04 Immature Gran # 0.02 10^3/uL (0.00-0.10) 02/04/17 13:04 Puncture Site NONE GIVEN 02/04/17 13:30 Patient Temperature 37.0 DEGREES 02/04/17 13:30 VBG pH 7.22 (7.31-7.42) L 02/04/17 13:30 VBG HCO3 15 mEQ/L (22-26) L 02/04/17 13:30 VBG Total CO2 16 mEq/L (23-27) L 02/04/17 13:30 VBG O2 Saturation 90 % (65-75) H 02/04/17 13:30 VBG Base Excess -11.5 mEq/L (-2.5-2.5) L 02/04/17 13:30 Mixed VBG pCO2 38 mmHg (40-44) L 02/04/17 13:30 Mixed VBG pO2 73 mmHg (35-40) H 02/04/17 13:30 POC Sodium 141 mEq/L (134-144) 02/04/17 13:09 Sodium 147 mEq/L (134-144) H 02/04/17 13:04 POC Potassium 6.7 mEq/L (3.3-5.0) H* 02/04/17 13:09 Potassium 6.9 mEq/L (3.5-5.2) H* 02/04/17 13:04 POC Chloride 108 mEq/L (97-110) 02/04/17 13:09 Chloride 109 mEq/L (97-110) 02/04/17 13:04 Carbon Dioxide 12 mEq/l (22-31) L 02/04/17 13:04 Anion Gap 26 mEq/L (8-16) H 02/04/17 13:04 POC BUN 129 mg/dL (7-23) H* 02/04/17 13:09 BUN 116 mg/dL (7-23) H* 02/04/17 13:04 Creatinine 14.5 mg/dL (0.7-1.3) H* 02/04/17 13:04 POC Creatinine 15.0 mg/dL (0.7-1.3) H* 02/04/17 13:09 Estimated GFR 3 02/04/17 13:04 Glucose 105 mg/dL (70-100) H 02/04/17 13:04 POC Glucose 102 mg/dL (70-100) H 02/04/17 13:09 Calcium 7.6 mg/dL (8.5-10.4) L 02/04/17 13:04 Phosphorus 5.9 mg/dL (2.5-4.5) H 02/04/17 13:04 Magnesium 1.7 mg/dL (1.6-2.3) 02/04/17 13:04 Total Bilirubin 0.5 mg/dL (0.1-1.4) 02/04/17 13:04 Conjugated Bilirubin 0.5 mg/dL (0.0-0.5) 02/04/17 13:04 Unconjugated Bilirubin 0.0 mg/dL (0.0-1.1) 02/04/17 13:04 AST 9 IU/L (17-59) L 02/04/17 13:04 ALT 28 IU/L (21-72) 02/04/17 13:04 Alkaline Phosphatase 158 IU/L (38-126) H 02/04/17 13:04 Total Protein 6.5 g/dL (6.3-8.2) 02/04/17 13:04 Albumin 4.4 g/dL (3.5-5.0) 02/04/17 13:04 Patient ABO/Rh O POSITIVE 02/04/17 13:30 Antibody Screen NEGATIVE 02/04/17 13:30 Visualized and Interpreted Chest x-ray results: Yes Chest X-Ray results: no infiltrate Visualized and Interpreted EKG results: Yes EKG Interpretation: Positive for: other ( normal sinus mechanism with peaked T- waves) Assessment & Plan Assessment: 67-year-old male presents with acute hyperkalemia in the setting of end-stage renal disease and uremic symptoms Plan: 1. Uremia. Acute, resulting in symptoms including diarrhea, BUN 129, will be managed with hemodialysis 2. Hyperkalemia. Acute, new problem this provider, further workup indicated. Patient's potassium level is critically elevated and is translating into conduction abnormalities including peaked T-waves - admit for inpatient dialysis emergently - administer dextrose, insulin, calcium gluconate immediately - discussed with Dr. Adithya Farrell from Nephrology, she reports that dialysis will be arranged - repeat serum potassium level sequentially thereafter - monitor on telemetry given high risk of arrhythmias - will continue counseled patient regarding use of Kayexalate after discharge 3. Hypernatremia. Secondary to renal dysfunction, continue monitor 4. Acute metabolic acidosis. Reviewed outside records, discharge summary by Dr. Pipe Chau from 01/30/2017, reports that the patient's serum bicarbonate level was 19 at time of discharge and that he required to have runs of hemodialysis resulting in a discharge potassium level of 5 - presenting bicarbonate level 12, venous pH 7.22, address acidosis with hemodialysis 5. Anemia of chronic kidney disease. Hemoglobin currently 7.7, no reported melanotic stool, hold on transfusion at this time, monitor hemoglobin level while inpatient 6. Hypertension. Secondary to end-stage renal disease, continue home antihypertensive medications 7. End-stage renal disease. No access to outpatient hemodialysis, continue patient's home medications and provide hemodialysis emergently Diet. Renal Prophylaxis. High risk patient, heparin subcu Code. Full Disposition. Anticipated date of discharge uncertain this time, anticipated length stay is greater than 48 hours warranting inpatient admission status for acute emergent hemodialysis in the setting of acute hyperkalemia and high risk comorbid acute metabolic acidosis, end-stage renal disease.
[2017-02-04] MEDS ORDERED: NS 100 ML IV PRN (16:05)
[2017-02-04] MEDS ORDERED: MANNITOL 25% 12.5 GM/50 ML VIAL IV ONE (16:15)
[2017-02-04] MEDS ORDERED: HEPARIN 50,000 UNIT/10 ML VIAL ONE ×2 (19:38→19:39)
[2017-02-04] MEDS: CALCIUM CARBONATE 500 MG CHEWABLE TAB PO SCH (20:35)
[2017-02-04] MEDS: METOPROLOL TARTRATE 25 MG TAB PO SCH (20:36)
[2017-02-04] MEDS: HEPARIN 5,000 UNIT/0.5 ML SYR SC SCH (22:19)
[2017-02-05 04:45] LABS: HEMATOCRIT 21.8 % (40.0-51.0); HEMOGLOBIN 7.2 g/dL (13.7-17.5)
[2017-02-05 05:14] LABS: ALANINE AMINOTRANSFERASE 23 IU/L (21-72); ALBUMIN 3.3 g/dL (3.5-5.0); ALKALINE PHOSPHATASE 124 IU/L (38-126); ANION GAP 15 mEq/L (8-16); ASPARTATE AMINOTRANSFERASE 15 IU/L (17-59); BILIRUBIN,TOTAL 0.5 mg/dL (0.1-1.4); CALCIUM 7.6 mg/dL (8.5-10.4); CARBON DIOXIDE 19 mEq/l (22-31); CHLORIDE 106 mEq/L (97-110); GLOMERULAR FILTRATION RATE 6; GLUCOSE 78 mg/dL (70-100); POTASSIUM 5.3 mEq/L (3.5-5.2); SODIUM 140 mEq/L (134-144); TOTAL PROTEIN 5.4 g/dL (6.3-8.2)
[2017-02-05 05:21] LABS: CREATININE 9.5 mg/dL (0.7-1.3)
[2017-02-05] MEDS: HEPARIN 5,000 UNIT/0.5 ML SYR SC SCH ×3 (06:12→21:03)
[2017-02-05] MEDS: ATORVASTATIN CALCIUM 40 MG TAB PO SCH (08:44)
[2017-02-05] MEDS: SODIUM BICARBONATE 650 MG TAB PO SCH (08:44)
[2017-02-05] MEDS: NEPHROVITE FOLIC ACID/VIT B&C 1 TAB PO SCH (08:44)
[2017-02-05] MEDS: PANTOPRAZOLE SODIUM 40 MG TAB PO SCH (08:45)
[2017-02-05] MEDS: METOPROLOL TARTRATE 25 MG TAB PO SCH ×2 (08:45→21:03)
[2017-02-05] MEDS: CALCIUM CARBONATE 500 MG CHEWABLE TAB PO SCH ×4 (08:45→19:52)
--- NOTE | 2017-02-05 13:58 | SOAPPROG ---
SOEDY Progress Note Assessment/Plan: Assessment: ESRD Plan: HD last night HD today HD tomorrow, pt wants to go home today after dialysis, I've recommended he stay for HD tomorrow 02/05/17 13:55 Subjective: feels better today no cp sob nausea or vomiting energy ok, slept fine no anorexia Objective: Vital Signs Temp Pulse Resp BP Pulse Ox 36.4 C 57 L 18 148/77 H 84 L 02/05/17 11:33 02/05/17 11:33 02/05/17 11:33 02/05/17 11:33 02/05/17 11:55 Laboratory Results 02/05/17 04:27 02/05/17 04:27 02/04/17 02/05/17 02/06/17 05:59 05:59 05:59 Intake Total 560 Balance 560 Physical Exam - Physical Exam General Appearance: WD/WN, alert Respiratory: lungs clear, No rhonchi, No wheezing Cardiac/Chest: regular rate, rhythm, edema (trace), No gallop, No friction rub Abdomen: normal bowel sounds, non-tender, soft Extremities: swelling (minimal) Neuro/Psych: alert, normal mood/affect, oriented x 3 ICD10 Worksheet Patient Problems: Problems Problem Status Onset Anemia, chronic disease Acute ESRD (end stage renal disease) Acute Hyperkalemia Acute Abdominal pain Acute Acute renal failure Acute Acute upper GI bleed Acute Anemia Acute Anemia associated with acute blood loss Acute Chronic renal failure Acute Diarrhea Acute End stage renal disease Acute End stage renal disease Acute Hyperkalemia Acute Hyperkalemia Acute Hyperkalemia Acute Hyperkalemia Acute Hyperkalemia Acute Hyperkalemia Acute Hyperkalemia Acute Hyperkalemia Acute Hyperkalemia Acute Hypertension Acute Hypocalcemia Acute Kidney failure Acute Kidney failure Acute Kidney failure Acute Metabolic acidosis Acute Renal failure Acute Shingles (herpes zoster) polyneuropathy Acute Uremia Acute Uremia Acute
[2017-02-05] MEDS ORDERED: CHOLECALCIFEROL VIT D3 50,000 UNIT CAP PO SCH (14:37)
[2017-02-05] MEDS ORDERED: HEPARIN 50,000 UNIT/10 ML VIAL ONE (16:42)
--- NOTE | 2017-02-05 17:22 | HOSPPROG ---
Hospitalist Progress Note Assessment/Plan: Assessment: 67-year-old male presents with acute hyperkalemia in the setting of end-stage renal disease and uremic symptoms Plan: 1. Uremia. Acute, resulting in symptoms including diarrhea, BUN 129, improving w/ HD 2. Hyperkalemia. Acute, improving w/ HD, cont monitoring on tele - continue to recommend kayexalate on discharge to slow reaccumulation 3. Hypernatremia. Resolved 4. Acute metabolic acidosis. Improving w/ HD, at 19 today 5. Anemia of chronic kidney disease. Hemoglobin currently 7.2, no reported melanotic stool, hold on transfusion at this time, monitor hemoglobin level while inpatient - consider EPO w/ HD tomorrow 6. Hypertension. Secondary to end-stage renal disease, continue home antihypertensive medications 7. End-stage renal disease. No access to outpatient hemodialysis, continue patient's home medications and provide hemodialysis emergently Diet. Renal Prophylaxis. High risk patient, heparin subcu Code. Full Disposition. Anticipated date of discharge 02/06, pending final HD treatment Subjective: patient resting, fatigued Objective: Vital Signs Temp Pulse Resp BP Pulse Ox 36.6 C 57 L 16 138/58 H 98 02/05/17 16:00 02/05/17 16:00 02/05/17 16:00 02/05/17 16:00 02/05/17 16:00 Laboratory Results 02/05/17 04:27 02/05/17 04:27 02/04/17 02/05/17 02/06/17 05:59 05:59 05:59 Intake Total 560 Balance 560 - Pending Discharge Pending Discharge Within 24 Hours: Yes Pending Discharge Date: 02/06/17 Pending Discharge Time: 11:00 - Physical Exam Constitutional: no apparent distress, not in pain, other (thin appearing), No uncomfortable Cardiovascular: regular rate and rhythym, no murmur, rub, or gallop, edema ( trace bilat LE) Respiratory: no respiratory distress, no rales or rhonchi, clear to auscultation Gastrointestinal: normoactive bowel sounds, soft, non-tender abdomen, no palpable masses Psychiatric: not anxious, not encephalopathic, flat affect, No agitated ICD10 Worksheet Patient Problems: Problems Problem Status Onset Acute renal failure Acute Anemia Acute Abdominal pain Acute Hyperkalemia Acute Hypocalcemia Acute Renal failure Acute Hypertension Acute Acute upper GI bleed Acute Anemia associated with acute blood loss Acute End stage renal disease Acute Metabolic acidosis Acute Diarrhea Acute Shingles (herpes zoster) polyneuropathy Acute Kidney failure Acute Hyperkalemia Acute Chronic renal failure Acute Hyperkalemia Acute Kidney failure Acute Hyperkalemia Acute Kidney failure Acute Uremia Acute Hyperkalemia Acute Hyperkalemia Acute Hyperkalemia Acute Hyperkalemia Acute Uremia Acute Hyperkalemia Acute End stage renal disease Acute Hyperkalemia Acute ESRD (end stage renal disease) Acute Anemia, chronic disease Acute
[2017-02-06 04:22] LABS: HEMOGLOBIN 7.3 g/dL (13.7-17.5)
[2017-02-06 04:46] LABS: ALANINE AMINOTRANSFERASE 24 IU/L (21-72); ALBUMIN 3.3 g/dL (3.5-5.0); ALKALINE PHOSPHATASE 111 IU/L (38-126); ANION GAP 12 mEq/L (8-16); ASPARTATE AMINOTRANSFERASE 14 IU/L (17-59); BILIRUBIN,TOTAL 0.4 mg/dL (0.1-1.4); CALCIUM 7.2 mg/dL (8.5-10.4); CARBON DIOXIDE 24 mEq/l (22-31); CHLORIDE 101 mEq/L (97-110); GLOMERULAR FILTRATION RATE 9; GLUCOSE 90 mg/dL (70-100); POTASSIUM 4.6 mEq/L (3.5-5.2); SODIUM 137 mEq/L (134-144); TOTAL PROTEIN 5.1 g/dL (6.3-8.2)
[2017-02-06 07:15] VITALS: PULSE 51; TEMP 97.8
[2017-02-06] MEDS: HEPARIN 5,000 UNIT/0.5 ML SYR SC SCH (08:25)
[2017-02-06] MEDS: NEPHROVITE FOLIC ACID/VIT B&C 1 TAB PO SCH (08:27)
[2017-02-06] MEDS: SODIUM BICARBONATE 650 MG TAB PO SCH (08:27)
[2017-02-06] MEDS: CALCIUM CARBONATE 500 MG CHEWABLE TAB PO SCH ×2 (08:27→13:50)
[2017-02-06] MEDS: PANTOPRAZOLE SODIUM 40 MG TAB PO SCH (08:28)
[2017-02-06] MEDS ORDERED: HEPARIN 50,000 UNIT/10 ML VIAL ONE (10:00)
--- NOTE | 2017-02-06 10:03 | PDDCSUM ---
Discharge Summary Discharge Summary: Dates of service 02/04-02/06/17 Discharge diagnosis: # ESRD # hyperkalemia # uremia # metabolic acidosis # anemia of ckd # HTN Consultations: renal Procedures performed: hemodialysis Hospital course by problem: 67-year-old male presents with acute hyperkalemia in the setting of end-stage renal disease and uremic symptoms and lack of access to OP HD 1. Uremia. Acute, resulting in symptoms including diarrhea, BUN 129, improving w/ HD 2. Hyperkalemia. Improved s/p HD x 2, continue Kayexalate as an OP to avoid rapid reaccumulation 3. Hypernatremia. Resolved 4. Acute metabolic acidosis. Improving w/ HD, continue Na bicarb after dc 5. Anemia of chronic kidney disease. stably low, will continue to monitor, transfuse for hgb < 7 6. Hypertension. Secondary to end-stage renal disease, continue home antihypertensive medications 7. End-stage renal disease. No access to outpatient hemodialysis, continue patient's home medications and provide hemodialysis emergently Diet. Renal Dc home return precautions given > 35 minutes spent in dc more than half in coordination of care
--- NOTE | 2017-02-06 10:59 | SOAPPROG ---
JACQUELINE Progress Note Assessment/Plan: Assessment: ESRD feels well today Plan: HD today Home after HD today 02/05/17 13:55 02/06/17 10:57 Subjective: seen on HD denies pain nausea vomiting or anorexia spirits good Objective: Vital Signs Temp Pulse Resp BP Pulse Ox 36.6 C 51 L 14 128/67 H 96 02/06/17 07:14 02/06/17 07:14 02/06/17 07:14 02/06/17 07:14 02/06/17 07:14 Laboratory Results 02/06/17 03:40 02/06/17 03:40 02/05/17 02/06/17 02/07/17 05:59 05:59 05:59 Intake Total 560 640 Balance 560 640 Physical Exam - Physical Exam General Appearance: alert Respiratory: lungs clear Cardiac/Chest: regular rate, rhythm, No edema Extremities: No pedal edema Neuro/Psych: alert, normal mood/affect, oriented x 3 ICD10 Worksheet Patient Problems: Problems Problem Status Onset Anemia, chronic disease Acute ESRD (end stage renal disease) Acute Hyperkalemia Acute Abdominal pain Acute Acute renal failure Acute Acute upper GI bleed Acute Anemia Acute Anemia associated with acute blood loss Acute Chronic renal failure Acute Diarrhea Acute End stage renal disease Acute End stage renal disease Acute Hyperkalemia Acute Hyperkalemia Acute Hyperkalemia Acute Hyperkalemia Acute Hyperkalemia Acute Hyperkalemia Acute Hyperkalemia Acute Hyperkalemia Acute Hyperkalemia Acute Hypertension Acute Hypocalcemia Acute Kidney failure Acute Kidney failure Acute Kidney failure Acute Metabolic acidosis Acute Renal failure Acute Shingles (herpes zoster) polyneuropathy Acute Uremia Acute Uremia Acute
[2017-02-06 12:40] VITALS: BP 150/61; RESP 16; O2SAT 94
[2017-02-06] MEDS: METOPROLOL TARTRATE 25 MG TAB PO SCH (12:40)
[2017-02-06] MEDS: ATORVASTATIN CALCIUM 40 MG TAB PO SCH (12:40)
== END 2017-02-06 14:13 | disposition home or self-care (01) | DRG 640 ==
LOC: F2W 15:40
PROVIDERS: ADMIT Internal Medicine; ATTEND Internal Medicine
PROC: 5A1D00Z (ICD-10-PCS; principal; 2017-02-04)
DX: E87.5 Hyperkalemia (principal); N18.6 End stage renal disease; I12.0 Hypertensive chronic kidney disease with stage 5 chronic kidney disease or end stage renal disease; E87.2 Acidosis; D63.1 Anemia in chronic kidney disease; E87.0 Hyperosmolality and hypernatremia; I25.10 Atherosclerotic heart disease of native coronary artery without angina pectoris; K21.9 Gastro-esophageal reflux disease without esophagitis
CPT/HCPCS: 82947-QW; 96374; J0610; J1644; J1815; J2150

== ENCOUNTER 2017-02-12 13:15 | Inpatient (IN) | payer OTHER ==
--- NOTE | 2017-02-12 15:30 | EDPHY ---
H & P Time Seen by Provider: 02/12/17 15:25 HPI/ROS: Chief complaint. Needs dialysis HPI. 67-year-old male with end-stage renal disease well known to our emergency department here for dialysis. He has no health insurance and is unable to obtain outpatient dialysis. His last dialysis was 6 days ago. He tells me he felt well for the 1st 3-4 days and now has been beginning to feel poorly with typical symptoms that he has of needing dialysis including weakness and some nausea. He always has diarrhea. Denies fever, chest discomfort, trouble. ROS Constitutional. Weakness Eyes. no problems with vision ENT. no sore throat, no nasal drainage Cardiovascular. no chest pain Respiratory. no shortness of breath, no cough Abdominal. no abdominal pain, no nausea/vomiting, no diarrhea . no problems urinating MS. no calf pain/swelling, no neck/back pain, no joint pain Skin. no rash Lymph. no swollen glands Neuro. no headache, no dizziness, no difficulty walking or with speech Past Medical/Surgical History: Gout, hypertension, anemia, coronary artery disease, esophageal itis, GI bleed, end-stage renal disease, dialysis, heart stent, shingles Social History: Single, nonsmoker, no alcohol Smoking Status: Former smoker Physical Exam: General Appearance: Alert well-developed male mild distress vital signs are stable Eyes: Pupils equal and round no pallor or injection. ENT, Mouth: Mucous membranes are moist. Respiratory: There are no retractions, lungs are clear to auscultation. Cardiovascular: Regular rate and rhythm. Gastrointestinal: Abdomen is soft and nontender, no masses, bowel sounds normal. Neurological: Awake and alert, sensory and motor exams grossly normal. Skin: Warm and dry, no rashes. Musculoskeletal: Neck is supple nontender. Extremities symmetrical, full range of motion. Psychiatric: Patient is oriented X 3, there is no agitation. Constitutional: Initial Vital Signs Temperature (C) 36.7 C 02/12/17 13:25 Heart Rate 54 L 02/12/17 13:25 Respiratory Rate 16 02/12/17 13:25 Blood Pressure 150/66 H 02/12/17 13:25 O2 Sat (%) 99 02/12/17 13:25 O2 Delivery Mode Room Air Allergies/Adverse Reactions: No Known Allergies Allergy (Verified 02/12/17 13:32) Home Medications: Medication Instructions Recorded Atorvastatin Calcium [Lipitor 40 80 mg PO DAILY 10/30/16 mg (*)] Nitroglycerin [Nitrostat 0.4 mg 0.4 mg SL AD PRN 10/30/16 (*)] Sodium Bicarbonate [Na Bicarb] 1,300 mg PO DAILY 10/30/16 amLODIPine BESYLATE [Norvasc 10 mg 10 mg PO DAILY 10/30/16 (*)] Calcium Carbonate [Tums 500MG (*)] 500 mg PO TIDMEAL #90 tab.chew 11/01/16 Pantoprazole Sodium [Protonix 40mg 40 mg PO DAILY 12/03/16 (*)] Folic Acid/Vit B Com W/C 1 each PO DAILY 01/07/17 [Nephro-Peyton Rx] Cholecalciferol Vit D3 [Vitamin D3 50,000 unit PO TU 01/21/17 (*)] Metoprolol Tartrate [Lopressor 25 12.5 mg PO BID #60 tab 01/22/17 mg (*)] Hydralazine HCl 50 mg PO DAILY #30 tablet 02/06/17 Medical Decision Making - Diagnostics EKG Interpretation: EKG interpreted by me shows normal sinus rhythm normal interval and axis. QRS is normal there is no significant ST elevation or depression. There may be slight T-wave prominence in the anterior leads. No arrhythmia. The rate is 47 Procedures: IV normal saline. I-STAT. EKG. Patient is given intravenous D50W, 10 units regular insulin, 1 g calcium gluconate. ED Course/Re-evaluation: Patient's i-STAT potassium is 7.2 BUN 38 creatinine of 16 1. IV access has been difficult. Re-evaluation 4:25 p.m.--multiple IV attempts that are unsuccessful. Patient does not wish to have another attempt. I did discuss with the patient that I would like to give him potassium shifting medication through the IV. I have consulted and discussed case with Dr. Amato, hospitalist, who agrees to the admission We have obtained IV access with an external jugular line. Patient will be given 10 units of regular insulin, D50W, 1 g calcium gluconate. I consulted discussed case with [facility] will see him in about 2 hours and dialyze him. They agree with the medical management Differential Diagnosis: I have considered hyperkalemia with EKG changes, other electrolyte abnormalities , volume overload - Data Points Laboratory Results: Laboratory Results 02/12/17 16:05 02/12/17 02/12/17 16:05 16:02 POC Hgb 9.5 gm/dL L gm/dL (13.7-17.5) POC Hct 28 % L % (40-51) POC Sodium 141 mEq/L mEq/L (134-144) Sodium 145 mEq/L H mEq/L (134-144) POC Potassium 7.2 mEq/L H* mEq/L (3.3-5.0) Potassium 7.5 mEq/L H* mEq/L (3.5-5.2) POC Chloride 113 mEq/L H mEq/L (97-110) Chloride 106 mEq/L mEq/L (97-110) Carbon Dioxide 12 mEq/l L mEq/l (22-31) Anion Gap 27 mEq/L H mEq/L (8-16) POC BUN 138 mg/dL H* mg/dL (7-23) BUN 133 mg/dL H* mg/dL (7-23) Creatinine 15.0 mg/dL H* mg/dL (0.7-1.3) POC Creatinine 16.1 mg/dL H* mg/dL (0.7-1.3) Estimated GFR 3 Glucose 92 mg/dL mg/dL (70-100) POC Glucose 95 mg/dL mg/dL (70-100) Calcium 7.7 mg/dL L mg/dL (8.5-10.4) Medications Given: Discontinued Medications Dextrose (Dextrose 50% Syringe) 25 gm IVP EDNOW ONE Stop: 02/12/17 16:54 Last Admin: 02/12/17 17:11 Dose: 25 gm Calcium Gluconate (Calcium Gluconate 1 Gm (Premix)) 50 mls @ 100 mls/hr IV EDNOW ONE Stop: 02/12/17 17:23 Last Admin: 02/12/17 17:29 Dose: 50 mls Insulin Human Regular (Humulin R) 10 unit IVP EDNOW ONE Stop: 02/12/17 16:55 Last Admin: 02/12/17 17:26 Dose: 10 units Mannitol (Mannitol 25%) 12.5 gm IVP ONCE ONE Stop: 02/12/17 18:25 Last Admin: 02/12/17 19:06 Dose: 12.5 gm Point of Care Test Results: 02/12/17 16:02 POC Sodium 141 POC Potassium 7.2 H* POC Chloride 113 H POC BUN 138 H* POC Creatinine 16.1 H* POC Glucose 95 Departure - Departure Disposition: [facility] Inpatient Acute Clinical Impression: End stage renal disease, Hyperkalemia, diminished renal excretion Condition: Fair
--- NOTE | 2017-02-12 16:18 | CPEKG ---
Heart Rate: 47 RR Interval: 1277 P-R Interval: 184 QRSD Interval: 108 QT Interval: 508 QTC Interval: 450 P Stevinson: 67 QRS Stevinson: 66 T Wave Stevinson: 71 EKG Severity - OTHERWISE NORMAL ECG - EKG Impression: SINUS BRADYCARDIA Electronically Signed By: Tex Ford 12-Feb-2017 18:35:03
[2017-02-12 16:28] LABS: ANION GAP 27 mEq/L (8-16); CALCIUM 7.7 mg/dL (8.5-10.4); CARBON DIOXIDE 12 mEq/l (22-31); CHLORIDE 106 mEq/L (97-110); GLUCOSE 92 mg/dL (70-100); SODIUM 145 mEq/L (134-144)
[2017-02-12 16:40] LABS: GLOMERULAR FILTRATION RATE 3
[2017-02-12 16:42] LABS: POTASSIUM 7.5 mEq/L (3.5-5.2)
[2017-02-12] MEDS ORDERED: D50W 25 GM/50 ML SYR IVP ONE (16:53)
[2017-02-12] MEDS ORDERED: INSULIN REGULAR HUMAN 100 UNIT/ML IVP ONE (16:54)
[2017-02-12] MEDS ORDERED: CALCIUM GLUCONATE 50 ML IV ONE (16:54)
[2017-02-12 17:06] LABS: % IMMATURE GRANULYOCYTES 0.4 % (0.0-1.1); ABSOLUTE IMMATURE GRANULOCYTES 0.02 10^3/uL (0.00-0.10); ADD DIFF? NO; ADD MORPH? NO; ADD SCAN? NO; ATYPICAL LYMPHOCYTE FLAG 0 (0-99); FRAGMENT RBC FLAG 0 (0-99); HEMATOCRIT 24.6 % (40.0-51.0); LEFT SHIFT FLG 0 (0-99); LIPEMIA HEMOLYSIS FLAG 80 (0-99); MEAN CELL HEMOGLOBIN 32.1 pg (27.9-34.1); MEAN CELL HEMOGLOBIN CONCENTR. 32.5 g/dL (32.4-36.7); MEAN CELL VOLUME 98.8 fL (81.5-99.8); MEAN PLATELET VOLUME 10.5 fL (8.7-11.7); PLATELET CLUMPS FLAG 20 (0-99); PLATELET COUNT 115 10^3/uL (150-400); RED BLOOD CELL COUNT 2.49 10^6/uL (4.40-6.38); RED CELL DISTRIBUTION WIDTH 15.5 % (11.5-15.2)
[2017-02-12] MEDS ORDERED: MANNITOL 25% 12.5 GM/50 ML VIAL IVP ONE (18:24)
--- NOTE | 2017-02-12 18:29 | SOAPPROG ---
SOAP Progress Note Assessment/Plan: Assessment: Plan: Subjective: Past Medical History coronary artery disease (Known coronary disease but has not undergone interventional cardiac catheterization), ESRD, GI bleed, GERD (Anemia of chronic disease, H/O UGIB x2 (first on Plavix +ASA, then on ASA alone), esophagitis), hypertension Additional medical history: Anemia of chronic kidney disease; upper GI bleed in the setting of anti-platelet medications, has occurred while on single and double agent therapy; 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; esophagitis - Surgical History Additional surgical history: R IJ tunneled catheter - Family History Additional family history: Mother with CVA and HTN - Social History Smoking Status: Former smoker Alcohol Use: None Drug Use: None Additional social history: Continues to work on non-HD days Generic Name Dose Route Start Last Admin Trade Name Freq PRN Reason Stop Dose Admin Mannitol 0 gm 02/12/17 18:24 Mannitol 25% IVP 02/12/17 18:25 ONCE ONE Discontinued Medications Generic Name Dose Route Start Last Admin Trade Name Freq PRN Reason Stop Dose Admin Dextrose 25 gm 02/12/17 16:53 02/12/17 17:11 Dextrose 50% Syringe IVP 02/12/17 16:54 25 gm EDNOW ONE Administration Calcium Gluconate 50 mls @ 100 mls/hr 02/12/17 16:54 02/12/17 17:29 Calcium Gluconate 1 Gm (Premix) IV 02/12/17 17:23 50 mls EDNOW ONE Administration Insulin Human Regular 10 unit 02/12/17 16:54 02/12/17 17:26 Humulin R IVP 02/12/17 16:55 10 units EDNOW ONE Administration Allergy/AdvReac Type Severity Reaction Status Date / Time No Known Allergies Allergy Verified 02/12/17 13:32 Objective: Vital Signs Temp Pulse Resp BP Pulse Ox 36.4 C 48 L 18 162/74 H 100 02/12/17 17:36 02/12/17 17:36 02/12/17 17:36 02/12/17 17:36 02/12/17 17:36 02/11/17 02/12/17 02/13/17 05:59 05:59 05:59 Intake Total 250 Output Total 0 Balance 250 ICD10 Worksheet Patient Problems: Problems Problem Status Onset Abdominal pain Acute Acute renal failure Acute Acute upper GI bleed Acute Anemia Acute Anemia associated with acute blood loss Acute Anemia, chronic disease Acute Chronic renal failure Acute Diarrhea Acute ESRD (end stage renal disease) Acute End stage renal disease Acute End stage renal disease Acute Hyperkalemia Acute Hyperkalemia Acute Hyperkalemia Acute Hyperkalemia Acute Hyperkalemia Acute Hyperkalemia Acute Hyperkalemia Acute Hyperkalemia Acute Hyperkalemia Acute Hyperkalemia Acute Hypertension Acute Hypocalcemia Acute Kidney failure Acute Kidney failure Acute Kidney failure Acute Metabolic acidosis Acute Renal failure Acute Shingles (herpes zoster) polyneuropathy Acute Uremia Acute Uremia Acute
[2017-02-12] MEDS ORDERED: ONDANSETRON DISINTEGRATING 4 MG TAB PO PRN (18:30)
[2017-02-12] MEDS ORDERED: ACETAMINOPHEN 325 MG TAB PO PRN (18:30)
[2017-02-12] MEDS ORDERED: oxyCODONE IR 5 MG TAB PO PRN (18:30)
[2017-02-12] MEDS ORDERED: ONDANSETRON 4 MG/2 ML VIAL IVP PRN (18:30)
--- NOTE | 2017-02-12 18:31 | PDCONSULT ---
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 The patient was last dialyzed 6 days ago and states he has had no issues since that time. He states he is compliant with his medications and took them this AM, however, he does not know if he is on kayexalate. He denies diarrhea, vomiting, CP and SOB. He is unsure of his dry weight but admits not drinking much. History Information - Allergies/Home Medication List No Known Allergies Allergy (Verified 02/04/17 12:19) Home Medications: Atorvastatin Calcium [Lipitor 40 mg (*)] 80 mg PO DAILY 10/30/16 [Last Taken ] Nitroglycerin [Nitrostat 0.4 mg (*)] 0.4 mg SL AD PRN 10/30/16 [Last Taken 01/20] Sodium Bicarbonate [Na Bicarb] 1,300 mg PO DAILY 10/30/16 [Last Taken 01/28/17] amLODIPine BESYLATE [Norvasc 10 mg (*)] 10 mg PO DAILY 10/30/16 [Last Taken ] Pantoprazole Sodium [Protonix 40mg (*)] 40 mg PO DAILY 12/03/16 [Last Taken ] Folic Acid/Vit B Com W/C [Nephro-Peyton Rx] 1 each PO DAILY 01/07/17 [Last Taken 01/28/17] Cholecalciferol Vit D3 [Vitamin D3 (*)] 50,000 unit PO TU 01/21/17 [Last Taken 01/22/17] - Past Medical History Coronary artery disease (Known coronary disease but has not undergone interventional cardiac catheterization), ESRD, GI bleed, GERD (Anemia of chronic disease, H/O UGIB x2 (first on Plavix +ASA, then on ASA alone), esophagitis), hypertension Additional medical history: Anemia of chronic kidney disease; upper GI bleed in the setting of anti-platelet medications, has occurred while on single and double agent therapy; 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; esophagitis - Surgical History Additional surgical history: R IJ tunneled catheter - Family History Additional family history: Mother with CVA and HTN - Social History Smoking Status: Former smoker Alcohol Use: None Drug Use: None Additional social history: Continues to work on non-HD days ROS: Negative except as above. Objective Data Temp Pulse Resp BP Pulse Ox 35.8 C L 55 L 14 168/74 H 98 02/12/17 18:31 02/12/17 18:31 02/12/17 18:31 02/12/17 18:31 02/12/17 18:31 Physical Exam: General: SPO, alert, NAD HEENT: EOMI, no icterus Neck: Supple, no thyromegaly, L IJ IV line CV: RRR, no murmurs or rub, R TDC no erythema RESP: CTA b/l ABD: Soft, NT, ND EXT: No edema, pulses intact SKIN: Warm and dry Neuro: Non-focal, cooperative Laboratory Data: Reviewed. Assessment/Plan: 67 y/o M with ESRD on emergent dialysis presented to ED found to be hypertensive, hyperkalemia, acidotic requiring emergent dialysis. Given 1g Ca gluconate, insulin D5 per ED physician. 1)ESRD- no access to regular outpt HD given citizenship status -emergent HD now and again in am -low Qb and will give mannitol as at risk for dialysis equilibrium and has had this in the past and BUN 115 today 2)Hyperkalemia -HD now with 2K bath, monitor tele -shifted with 10u regular insulin and amp d50 as above -not currently taking his kayexalate, not on SEP and may consider adding lasix as outpatient 3)Anemia of CKD -h/o GI bleeding, will hold heparin on HD -Hb not at goal, received EPO last visit less than 1 week ago -redose EPO tomorrow after HD -iron stores in January 4)MBD of CKD -phos pending -will improve with HD -low calcium, given 1g Ca gluconate and will use 2.5mEq bath 5)Metabolic acidosis -HD now -po bicarb as outpt 6)HTN/vol -patient reports dry weight of 66kg and 61kg on admission, unclear -BP's 150's-170's currently -will UF minimally today given Na 146 and no evidence of volume overload -continue home dose of metoprolol and amlodipine 7) Nutrition -check albumin -may need to reset dry weight as patient reports losing weight
[2017-02-12 18:33] VITALS: RESP 14
[2017-02-12] MEDS ORDERED: NITROGLYCERIN 0.4 MG BTL SL PRN (18:33)
--- NOTE | 2017-02-12 19:33 | GHP ---
[f rep st] HISTORY AND PHYSICAL DATE OF ADMISSION: 02/12/2017 CHIEF COMPLAINT: Fatigue and diarrhea. HISTORY OF PRESENT ILLNESS: Mr. Walton is a 67-year-old male with a history of end-stage r enal disease, coronary artery disease, and chronic anemia who returns to the hospital for dialysis n eeds. He unfortunately has no outpatient benefits and is frequently hospitalized for emergent hemod ialysis. He states he began having diarrhea last night. He describes this as watery. Denies any h ematochezia or melenic stools. He has had no nausea or vomiting. He denies chest pain or shortness of breath. He overall feels weak and presents requesting admission for dialysis. PAST MEDICAL HISTORY: 1. End-stage renal disease, hemodialysis-dependent. 2. Coronary artery disease. 3. History of GI bleed. He bled on dual-antiplatelet therapy with Plavix and aspirin, and then ble d again on aspirin monotherapy. 4. GERD. 5. Chronic anemia in the setting of chronic kidney disease. 6. Esophagitis. 7. Hypertension. 8. Duodenal stricture March 2016. PAST SURGICAL HISTORY: Right IJ tunneled catheter for dialysis access. FAMILY HISTORY: His mother had a stroke and hypertension. SOCIAL HISTORY: The patient is a former smoker. He denies alcohol or drug use. He lives [facility] and works at [employer]. REVIEW OF SYSTEMS: Ten-point review of systems was performed and is as per HPI. OBJECTIVE: VITAL SIGNS: On arrival, temperature is 36.7, blood pressure 150/66, heart rate 54, res piratory rate 16. He is 99% on room air. GENERAL: The patient is awake, alert, oriented, in no ac lili distress. HEENT: Head is atraumatic, normocephalic. Pupils equal, round, and reactive to ligh t. Extraocular muscles intact. Oropharynx is clear. Mucous membranes are moist. NECK: Supple. He has slightly elevated jugular venous pressure. HEART: Regular rate and rhythm. LUNGS: Clear t o auscultation bilaterally. ABDOMEN: Soft, nondistended, and nontender with normoactive bowel soun ds. EXTREMITIES: He has 1+ bilateral lower extremity pretibial pitting edema, left greater than ri ght. NEUROLOGIC: Grossly nonfocal. LABORATORY DATA: CBC reveals normal white count; hemoglobin of 8, which is about his baseline; plat elets 115, also near baseline. Metabolic panel reveals a sodium of 145, potassium 7.5, CO2 of 12, B UN 133, creatinine 15. Serum calcium 7.7. EKG shows sinus bradycardia. No ST-segment or T-wave changes concerning for ischemia. ASSESSMENT AND PLAN: Mr. Walton is a 67-year-old male who is admitted for hemodialysis. 1. End-stage renal disease requiring emergent hemodialysis. He presents with potassium of 7.5, a s hollis CO2 of 12, and elevated BUN and creatinine. Renal has been consulted. A left external jugular line was placed in the emergency department. He has received insulin, dextrose, and calcium glucon ate for his hyperkalemia. He is going for emergent dialysis this evening. Will continue to closely follow his electrolytes and monitor him on telemetry. 2. Coronary artery disease. Patient is chest pain-free, has a nonischemic EKG. Will continue his beta bonifacio and statin therapy. Aspirin was deferred, given his history of gastrointestinal bleeds on aspirin monotherapy. 3. Chronic anemia in the setting of chronic kidney disease. His hemoglobin is at baseline. Will d efer EPO to the renal service. 4. Thrombocytopenia. This is also near his baseline, and will continue to follow. 5. History of gastrointestinal bleed. There is no evidence of active gastrointestinal bleeding. W ill continue to monitor. 6. Diarrhea. Will check a gastrointestinal pathogen panel. The patient has no recent exposure to antibiotics. 7. Metabolic acidosis in the setting of chronic kidney disease. This will be addressed with hemodi alysis. Will continue his oral sodium bicarb. Renal is consulting. 8. Hypertension. I will continue his home antihypertensive regimen. 9. Diet, renal. 10. Prophylaxis. Patient is high risk. Will give low-dose heparin with close monitoring. 11. Code status. Patient is full code. 12. Disposition. Patient is admitted to inpatient status, as he will likely require greater than 4 8 hours' hospitalization for ongoing management of his end-stage renal disease, hyperkalemia, and on going dialysis needs. /[id number]/MODL
[2017-02-12] MEDS ORDERED: HEPARIN 50,000 UNIT/10 ML VIAL ONE (21:00)
[2017-02-12] MEDS: HEPARIN 5,000 UNIT/0.5 ML SYR SC SCH (22:31)
[2017-02-12] MEDS: METOPROLOL TARTRATE 25 MG TAB PO SCH (22:32)
[2017-02-13 04:40] VITALS: O2SAT 99
[2017-02-13 05:35] LABS: ALBUMIN 3.4 g/dL (3.5-5.0); ANION GAP 15 mEq/L (8-16); CALCIUM 7.4 mg/dL (8.5-10.4); CARBON DIOXIDE 23 mEq/l (22-31); CHLORIDE 101 mEq/L (97-110); GLOMERULAR FILTRATION RATE 7; GLUCOSE 98 mg/dL (70-100); POTASSIUM 4.3 mEq/L (3.5-5.2); SODIUM 139 mEq/L (134-144)
[2017-02-13 05:42] LABS: CREATININE 8.1 mg/dL (0.7-1.3)
[2017-02-13] MEDS: HEPARIN 5,000 UNIT/0.5 ML SYR SC SCH ×2 (05:54→13:27)
[2017-02-13] MEDS ORDERED: ATORVASTATIN CALCIUM 40 MG TAB PO SCH (09:00)
[2017-02-13] MEDS ORDERED: PANTOPRAZOLE SODIUM 40 MG TAB PO SCH (09:00)
[2017-02-13] MEDS ORDERED: NEPHROVITE FOLIC ACID/VIT B&C 1 TAB PO SCH (09:00)
[2017-02-13] MEDS ORDERED: SODIUM BICARBONATE 650 MG TAB PO SCH (09:00)
[2017-02-13 11:23] VITALS: BP 176/79; PULSE 50; TEMP 97.6
[2017-02-13] MEDS: METOPROLOL TARTRATE 25 MG TAB PO SCH (11:25)
[2017-02-13] MEDS: CALCIUM CARBONATE 500 MG CHEWABLE TAB PO SCH ×2 (11:25→12:04)
--- NOTE | 2017-02-13 12:06 | SOAPPROG ---
JACQUELINE Progress Note Assessment/Plan: Assessment: ESRD hyperkalemia Plan: HD today wants to go home, I've recommended HD tomorrow instead 02/13/17 12:03 Subjective: feels better today no cp sob nausea or vomiting spirits good appetite good, he is hungry and hasn't had breakfast, yet Objective: Vital Signs Temp Pulse Resp BP Pulse Ox 36.4 C 50 L 14 176/79 H 99 02/13/17 11:20 02/13/17 11:20 02/13/17 11:20 02/13/17 11:20 02/13/17 11:20 Laboratory Results 02/13/17 04:37 02/12/17 02/13/17 02/14/17 05:59 05:59 05:59 Intake Total 400 Output Total 175 Balance 225 Physical Exam - Physical Exam General Appearance: WD/WN, alert Respiratory: No rales, No rhonchi, No wheezing Cardiac/Chest: regular rate, rhythm, No edema, No friction rub Abdomen: normal bowel sounds, non-tender, soft Skin: warm/dry Extremities: No pedal edema Neuro/Psych: alert, normal mood/affect, oriented x 3 ICD10 Worksheet Patient Problems: Problems Problem Status Onset End stage renal disease Acute Hyperkalemia, diminished renal excretion Acute Abdominal pain Acute Acute renal failure Acute Acute upper GI bleed Acute Anemia Acute Anemia associated with acute blood loss Acute Anemia, chronic disease Acute Chronic renal failure Acute Diarrhea Acute ESRD (end stage renal disease) Acute End stage renal disease Acute End stage renal disease Acute Hyperkalemia Acute Hyperkalemia Acute Hyperkalemia Acute Hyperkalemia Acute Hyperkalemia Acute Hyperkalemia Acute Hyperkalemia Acute Hyperkalemia Acute Hyperkalemia Acute Hyperkalemia Acute Hypertension Acute Hypocalcemia Acute Kidney failure Acute Kidney failure Acute Kidney failure Acute Metabolic acidosis Acute Renal failure Acute Shingles (herpes zoster) polyneuropathy Acute Uremia Acute Uremia Acute
--- NOTE | 2017-02-13 13:46 | HOSPPROG ---
Hospitalist Progress Note Objective: Vital Signs Temp Pulse Resp BP Pulse Ox 36.4 C 50 L 14 176/79 H 99 02/13/17 11:20 02/13/17 11:20 02/13/17 11:20 02/13/17 11:20 02/13/17 11:20 Laboratory Results 02/13/17 04:37 02/12/17 02/13/17 02/14/17 06:59 06:59 06:59 Intake Total 400 Output Total 175 Balance 225 ICD10 Worksheet Patient Problems: Problems Problem Status Onset End stage renal disease Acute Hyperkalemia, diminished renal excretion Acute Abdominal pain Acute Acute renal failure Acute Acute upper GI bleed Acute Anemia Acute Anemia associated with acute blood loss Acute Anemia, chronic disease Acute Chronic renal failure Acute Diarrhea Acute ESRD (end stage renal disease) Acute End stage renal disease Acute End stage renal disease Acute Hyperkalemia Acute Hyperkalemia Acute Hyperkalemia Acute Hyperkalemia Acute Hyperkalemia Acute Hyperkalemia Acute Hyperkalemia Acute Hyperkalemia Acute Hyperkalemia Acute Hyperkalemia Acute Hypertension Acute Hypocalcemia Acute Kidney failure Acute Kidney failure Acute Kidney failure Acute Metabolic acidosis Acute Renal failure Acute Shingles (herpes zoster) polyneuropathy Acute Uremia Acute Uremia Acute
--- NOTE | 2017-02-13 15:26 | PDDCSUM ---
Discharge Summary Discharge Summary: DISCHARGE DIAGNOSES: -Volume overload from lack of dialysis -Mildly ssymptomatic uremia -End-stage renal disease on dialysis but without access to outpatient dialysis unit CONSULTANTS: Dr. Rush Modi PROCEDURES: Hemodialysis 2 sessions HOSPITAL COURSE SUMMARY: This patient with end-stage renal disease comes to the hospital for dialysis as he does not have access to an outpatient unit. At this time he was 8 days out instead of his usual 7 days and his blood tests were quite uremic and hyperkalemic with creatinine of 15 BUN 130. He did not have QRS widening did not have cardiac arrhythmia but he was fairly volume overloaded. He was dialyzed for 2 sessions with good volume removal and improvement in his laboratory data. He tolerated dialysis well. There is no sign of any infections or other complications. At this point is recommended by go over to that the patient have a 3rd session of dialysis however the patient says he has to get to work and is unwilling to stay. I did encourage him to come back in 6 days at this time and to keep on a 7 day schedule instead of coming in on 8th day like he did this week. he is agreeable to this plan He will continue on his same medicines. PENDING TEST RESULTS: None MEDICATION CHANGES: None FOLLOW-UP PLAN: He will return here in 6 days time for further dialysis and continue weekly beyond that Greater than 35 minutes bedside and care coordination time today
[2017-02-13] MEDS ORDERED: HEPARIN 50,000 UNIT/10 ML VIAL ONE (16:30)
== END 2017-02-13 17:00 | disposition home or self-care (01) | DRG 640 ==
LOC: F2W 18:00
PROVIDERS: ADMIT Hospitalist; ATTEND Hospitalist
PROC: 5A1D60Z (ICD-10-PCS; principal; 2017-02-12)
DX: E87.5 Hyperkalemia (principal); I12.0 Hypertensive chronic kidney disease with stage 5 chronic kidney disease or end stage renal disease; N18.6 End stage renal disease; D63.1 Anemia in chronic kidney disease; I25.10 Atherosclerotic heart disease of native coronary artery without angina pectoris; K21.9 Gastro-esophageal reflux disease without esophagitis; Z99.2 Dependence on renal dialysis; Z79.82 Long term (current) use of aspirin
CPT/HCPCS: 82947-QW; J0610; J1644; J1815; J2150

== ENCOUNTER 2017-02-18 14:41 | Inpatient (IN) | payer OTHER ==
--- NOTE | 2017-02-18 15:22 | EDPHY ---
H & P Stated Complaint: here for regular dialysis/having diarrhea Time Seen by Provider: 02/18/17 15:22 - Personal History Current Tetanus/Diphtheria Vaccine: Yes Tetanus Vaccine Date: 2010 - Medical/Surgical History Hx Asthma: No Hx Chronic Respiratory Disease: No Hx Diabetes: No Hx Cardiac Disease: Yes Hx Renal Disease: Yes Hx Cirrhosis: No Hx Alcoholism: No Hx HIV/AIDS: No Hx Splenectomy or Spleen Trauma: No Other PMH: gout, htn, hernia, anemia, cad, esophagitis, GIB on plavix, ESRD, dialysis, heart stent, shingles - Social History Smoking Status: Former smoker Constitutional: Initial Vital Signs Temperature (C) 36.6 C 02/18/17 14:42 Heart Rate 57 L 02/18/17 14:42 Respiratory Rate 18 02/18/17 14:42 Blood Pressure 167/63 H 02/18/17 14:42 O2 Sat (%) 98 02/18/17 14:42 O2 Delivery Mode Room Air Allergies/Adverse Reactions: No Known Allergies Allergy (Verified 02/18/17 14:42) Home Medications: Medication Instructions Recorded Atorvastatin Calcium [Lipitor 40 80 mg PO DAILY 10/30/16 mg (*)] Nitroglycerin [Nitrostat 0.4 mg 0.4 mg SL AD PRN 10/30/16 (*)] Sodium Bicarbonate [Na Bicarb] 1,300 mg PO DAILY 10/30/16 amLODIPine BESYLATE [Norvasc 10 mg 10 mg PO DAILY 10/30/16 (*)] Calcium Carbonate [Tums 500MG (*)] 500 mg PO TIDMEAL #90 tab.chew 11/01/16 Pantoprazole Sodium [Protonix 40mg 40 mg PO DAILY 12/03/16 (*)] Folic Acid/Vit B Com W/C 1 each PO DAILY 01/07/17 [Nephro-Peyton Rx] Cholecalciferol Vit D3 [Vitamin D3 50,000 unit PO TU 01/21/17 (*)] Metoprolol Tartrate [Lopressor 25 12.5 mg PO BID #60 tab 01/22/17 mg (*)] Hydralazine HCl 50 mg PO DAILY #30 tablet 02/06/17 Medical Decision Making ED Course/Re-evaluation: CHIEF COMPLAINT: Dialysis HISTORY OF PRESENT ILLNESS: This patient is a 66 year old male with a history of end-stage renal disease presenting to the emergency department requesting dialysis. He is unable to obtain outpatient dialysis due to social problems. The patient's last hemodialysis was approximately a week ago at this emergency department. He feels is time for dialysis again. He has started to develop some diarrhea which is typical of his need for dialysis. He denies new or other associated symptoms. REVIEW OF SYSTEMS: A 10 point review of systems was performed and is negative with the exception of the elements mentioned in the history of present illness. PHYSICAL EXAM: HR, BP, O2 Sat, RR. Temp noted General Appearance: Alert, well hydrated, appropriate, and non-toxic appearing. Head: Atraumatic without scalp tenderness or obvious injury Eyes: Pupils equal, round, reactive to light and accommodation, EOMI, no trauma , no injection. Ears: Clear bilaterally, no perforation, normal landmarks Nose: Atraumatic, no rhinorrhea, clear. Throat: There is no erythema or exudates, no lesions, normal tonsils, mucus membranes moist. Neck: Supple, nontender, no lymphadenopathy. Respiratory: No retractions, no distress, no wheezes, and no accessory muscle use. Lungs are clear to auscultation bilaterally. Cardiovascular: Regular rate and rhythm, no murmurs, rubs, or gallops. Good capillary refill all extremities. Gastrointestinal: Abdomen is soft, nontender, non-distended, no masses, no rebound, no guarding, no peritoneal signs. Musculoskeletal: Normal active ROM of all extremities, atraumatic. Neurological: Alert, appropriate, and interactive. Nonfocal neuro exam. Skin: No rashes, good turgor, no nodules on palpation. Past medical history: Chronic end-stage renal disease. Past surgical history: Noncontributory Family history: Noncontributory Social history: Denies alcohol or drug abuse. DIFFERENTIAL DIAGNOSIS: No differential diagnosis, the patient has come in specifically for dialysis. MEDICAL DECISION MAKING: This patient presents with typical symptoms of needing dialysis. His labs are consistent with this. He requires admission to the hospital for further treatment. Baseline blood studies are obtained. Patient is hyperkalemic at 7.1. Creatinine 13.9, BUN 116. Spoke with hospitalist service. Dr. Rich accepts admission to PCU for hyperkalemia, renal failure. Spoke with Dr. Chin, linux unix engineer. - Data Points Laboratory Results: Laboratory Results 02/18/17 15:54 02/18/17 15:54 02/18/17 02/18/17 15:54 15:54 WBC 6.77 10^3/uL 10^3/uL (3.80-9.50) RBC 2.55 10^6/uL L 10^6/uL (4.40-6.38) Hgb 8.2 g/dL L g/dL (13.7-17.5) Hct 25.2 % L % (40.0-51.0) MCV 98.8 fL fL (81.5-99.8) MCH 32.2 pg pg (27.9-34.1) MCHC 32.5 g/dL g/dL (32.4-36.7) RDW 15.1 % % (11.5-15.2) Plt Count 143 10^3/uL L 10^3/uL (150-400) MPV 10.3 fL fL (8.7-11.7) Neut % (Auto) 64.4 % % (39.3-74.2) Lymph % (Auto) 17.9 % % (15.0-45.0) [place] % (Auto) 6.4 % % (4.5-13.0) Eos % (Auto) 10.0 % H % (0.6-7.6) Baso % (Auto) 0.9 % % (0.3-1.7) Nucleat RBC Rel Count 0.0 % % (0.0-0.2) Absolute Neuts (auto) 4.36 10^3/uL 10^3/uL (1.70-6.50) Absolute Lymphs (auto) 1.21 10^3/uL 10^3/uL (1.00-3.00) Absolute Monos (auto) 0.43 10^3/uL 10^3/uL (0.30-0.80) Absolute Eos (auto) 0.68 10^3/uL H 10^3/uL (0.03-0.40) Absolute Basos (auto) 0.06 10^3/uL 10^3/uL (0.02-0.10) Absolute Nucleated RBC 0.00 10^3/uL 10^3/uL (0-0.01) Immature Gran % 0.4 % % (0.0-1.1) Immature Gran # 0.03 10^3/uL 10^3/uL (0.00-0.10) Sodium 145 mEq/L H mEq/L (134-144) Potassium 7.1 mEq/L H* mEq/L (3.5-5.2) Chloride 104 mEq/L mEq/L (97-110) Carbon Dioxide 17 mEq/l L mEq/l (22-31) Anion Gap 24 mEq/L H mEq/L (8-16) BUN 116 mg/dL H* mg/dL (7-23) Creatinine 13.9 mg/dL H* mg/dL (0.7-1.3) Estimated GFR 4 Glucose 93 mg/dL mg/dL (70-100) Calcium 7.0 mg/dL L mg/dL (8.5-10.4) Total Bilirubin 0.6 mg/dL mg/dL (0.1-1.4) Conjugated Bilirubin 0.6 mg/dL H mg/dL (0.0-0.5) Unconjugated Bilirubin 0.0 mg/dL mg/dL (0.0-1.1) AST 13 IU/L L IU/L (17-59) ALT 28 IU/L IU/L (21-72) Alkaline Phosphatase 142 IU/L H IU/L (38-126) Total Protein 7.2 g/dL g/dL (6.3-8.2) Albumin 4.7 g/dL g/dL (3.5-5.0) Lipase 207 IU/L IU/L (23-300) Departure - Departure Disposition: [facility] Inpatient Acute Clinical Impression: Hyperkalemia, End stage renal disease Condition: Fair Report Scribed for: Geremias Enamorado Report Scribed by: Mely Noble Date of Report: 02/18/17 Time of Report: 15:41
[2017-02-18 16:02] LABS: % IMMATURE GRANULYOCYTES 0.4 % (0.0-1.1); ABSOLUTE IMMATURE GRANULOCYTES 0.03 10^3/uL (0.00-0.10); ADD DIFF? NO; ADD MORPH? NO; ADD SCAN? NO; ATYPICAL LYMPHOCYTE FLAG 0 (0-99); FRAGMENT RBC FLAG 0 (0-99); HEMATOCRIT 25.2 % (40.0-51.0); HEMOGLOBIN 8.2 g/dL (13.7-17.5); LEFT SHIFT FLG 0 (0-99); LIPEMIA HEMOLYSIS FLAG 80 (0-99); MEAN CELL HEMOGLOBIN 32.2 pg (27.9-34.1); MEAN CELL HEMOGLOBIN CONCENTR. 32.5 g/dL (32.4-36.7); MEAN CELL VOLUME 98.8 fL (81.5-99.8); MEAN PLATELET VOLUME 10.3 fL (8.7-11.7); PLATELET CLUMPS FLAG 10 (0-99); PLATELET COUNT 143 10^3/uL (150-400); RED BLOOD CELL COUNT 2.55 10^6/uL (4.40-6.38); RED CELL DISTRIBUTION WIDTH 15.1 % (11.5-15.2)
[2017-02-18 16:20] LABS: ALANINE AMINOTRANSFERASE 28 IU/L (21-72); ALBUMIN 4.7 g/dL (3.5-5.0); ALKALINE PHOSPHATASE 142 IU/L (38-126); ANION GAP 24 mEq/L (8-16); ASPARTATE AMINOTRANSFERASE 13 IU/L (17-59); BILIRUBIN,TOTAL 0.6 mg/dL (0.1-1.4); BILIRUBIN-CONJUGATED 0.6 mg/dL (0.0-0.5); CARBON DIOXIDE 17 mEq/l (22-31); CHLORIDE 104 mEq/L (97-110); GLOMERULAR FILTRATION RATE 4; GLUCOSE 93 mg/dL (70-100); SODIUM 145 mEq/L (134-144); TOTAL PROTEIN 7.2 g/dL (6.3-8.2)
[2017-02-18 16:25] LABS: CREATININE 13.9 mg/dL (0.7-1.3); POTASSIUM 7.1 mEq/L (3.5-5.2)
[2017-02-18] MEDS ORDERED: ONDANSETRON DISINTEGRATING 4 MG TAB PO PRN (16:52)
[2017-02-18] MEDS ORDERED: ONDANSETRON 4 MG/2 ML VIAL IVP PRN (16:52)
[2017-02-18] MEDS ORDERED: ACETAMINOPHEN 325 MG TAB PO PRN (16:52)
[2017-02-18] MEDS ORDERED: D50W 25 GM/50 ML SYR IVP ONE (17:02)
[2017-02-18] MEDS ORDERED: INSULIN REGULAR HUMAN 10 UNIT, COSIGN. REQUIRED 1 EA in D10W 500 ML IV ONE (17:02)
[2017-02-18] MEDS ORDERED: INSULIN REGULAR HUMAN 100 UNIT/ML IVP ONE (17:02)
--- NOTE | 2017-02-18 17:06 | CPEKG ---
Heart Rate: 50 RR Interval: 1200 P-R Interval: 200 QRSD Interval: 94 QT Interval: 480 QTC Interval: 438 P [place]: 50 QRS [place]: 64 T Wave [place]: 63 EKG Severity - NORMAL ECG - EKG Impression: SINUS RHYTHM Electronically Signed By: Geremias Enamorado 18-Feb-2017 22:41:12
--- NOTE | 2017-02-18 17:36 | GHP ---
[f rep st] HISTORY AND PHYSICAL DATE OF ADMISSION: 02/18/2017 HISTORY OF PRESENT ILLNESS: The patient is a very pleasant 67-year-old gentleman with a history of end-stage renal disease and no access to outpatient dialysis who presents with diarrhea and lower ex tremity edema. These are common equivalent presenting signs of need for dialysis. His last dialysi s was last week here at the hospital. He has not had any cough or shortness of breath. He has not had any chest pain or anginal-type symptoms. He continues to work. His edema is mild. REVIEW OF SYSTEMS: A complete 10-point review of systems is conducted and negative, except as noted in the HPI. PAST MEDICAL HISTORY: 1. End-stage renal disease on dialysis. 2. CAD. 3. History GI bleed in the setting of dual antiplatelet therapy. 4. GERD. 5. Anemia of chronic kidney disease. 6. Esophagitis. 7. Hypertension. 8. Duodenal stricture March 2016. 9. History of right IJ tunneled catheter for dialysis access. FAMILY HISTORY: Mother had stroke and hypertension. SOCIAL HISTORY: Former smoker. No alcohol or drugs. He lives independently and works at the [employer] across the street from the hospital. ALLERGIES: No known drug allergies. MEDICATIONS: Amlodipine, atorvastatin, calcium carbonate, vitamin D3, folate, hydralazine, metoprol ol, nitroglycerin, pantoprazole, sodium bicarb. PHYSICAL EXAMINATION: VITAL SIGNS: Temp 36.6, blood pressure 167/63, pulse 57, breathing 18 times a minute, 98% on room air. GENERAL: No acute distress. HEENT: Sclerae anicteric. Oropharynx dana ar. Mucous membranes are moist. NECK: Supple without lymphadenopathy or JVD. LUNGS: Clear to au scultation bilaterally. HEART: S1, S2. ABDOMEN: Soft, nontender, nondistended. LOWER EXTREMITIE S: Show trace edema bilaterally. Calves are nontender. SKIN: Without rash. NEUROLOGIC: Nonfoca l. LABS: White count 6.7, hematocrit 25, platelets are 143,000. Sodium 145, potassium 7.1 which is ac tually pretty high for him. His typical presenting potassiums are in the 6 range, although he was 7 .5 on his last presentation. Chloride 104, bicarb 17, BUN 116, creatinine 13.9. LFTs essentially n ormal. Alkaline phosphatase slightly high. Lipase 207. EKG, interpreted by me, shows sinus at 50 with normal axis and intervals. He does have some peaked T waves in the precordium, they are pretty similar in appearance in the past. I discussed the case with Dr. Geremias Enamorado. ASSESSMENT AND PLAN: A 67-year-old gentleman with end-stage renal disease, here with need for dialy sis. 1. End-stage renal disease. Patient will be scheduled for dialysis tonight. 2. Hyperkalemia. He received insulin and D5. He has a history of dropping his sugars, so he just got 5 units of insulin. 3. Hypertension. We will continue his medications and they have been reconciled. 4. Metabolic acidosis with anion gap. This is consistent with uremia. 5. Prophylaxis. Patient gets subcutaneous heparin three times daily. 6. Anemia. This is consistent with anemia of chronic kidney disease. DISPOSITION: Inpatient status. /[id number]/MODL
--- NOTE | 2017-02-18 18:05 | SOAPPROG ---
SOAP Progress Note Assessment/Plan: Assessment/Plan: 67 y/o M with ESRD on emergent dialysis presented to ED found to be hypertensive, hyperkalemic to 7.1mg/dL, and acidotic requiring emergent dialysis. Given 1g Ca gluconate, insulin D5 per ED physician. 1)ESRD- no access to regular outpt HD given citizenship status -emergent HD now and again in am -low Qb and will give mannitol as at risk for dialysis equilibrium and has had this in the past and BUN >100 today 2)Hyperkalemia -HD now with 2K bath, monitor tele -shifted with less insulin and more D5 per ED as patient previously becoming hypoglycemic on HD -not currently taking his kayexalate, not on SEP and may consider adding lasix as outpatient 3)Anemia of CKD -h/o GI bleeding, will hold heparin on HD -Hb not at goal, received EPO last visit less than 1 week ago -redose EPO tomorrow after HD -iron stores in January 4)MBD of CKD -phos pending -will improve with HD -low calcium, given 1g Ca gluconate and will use 2.5mEq bath 5)Metabolic acidosis -HD now -po bicarb as outpt 6)HTN/vol -patient reports dry weight of 66kg and 61kg on admission, unclear -BP's 150's-170's currently, will UF 1-2kg as tolerates -continue home dose of metoprolol, hydralazine and amlodipine, needs amlodipine refilled as he ran out 7) Nutrition -albumin 3.4 -may need to reset dry weight as patient reports losing weight 02/18/17 18:02 02/18/17 18:03 02/18/17 18:08 Subjective: The patient is a 67 y/o M ESRD who presents for emergent dialysis which he has done 2-3x weekly due to insurance issues. He reports no changes this week except for ongoing fatigue and some dyspnea on exertion. He reports running out of his amlodipine and needs to refill it prior to discharge. Denies other ROS. Objective: Vital Signs Temp Pulse Resp BP Pulse Ox 36.8 C 48 L 16 152/73 H 98 02/18/17 17:45 02/18/17 17:45 02/18/17 17:45 02/18/17 17:45 08/14/17 17:45 Physical Exam - Physical Exam General Appearance: WD/WN, alert, no apparent distress EENT: PERRL/EOMI, TMs normal Neck: non-tender, supple Respiratory: chest non-tender, lungs clear, normal breath sounds Cardiac/Chest: normal peripheral pulses, regular rate, rhythm, other (No edema) Abdomen: normal bowel sounds, non-tender, soft Back: Normal inspection Skin: normal color, warm/dry Extremities: normal range of motion, non-tender Neuro/Psych: no motor/sensory deficits, alert, normal mood/affect, oriented x 3 ICD10 Worksheet Patient Problems: Problems Problem Status Onset End stage renal disease Acute Hyperkalemia Acute Abdominal pain Acute Acute renal failure Acute Acute upper GI bleed Acute Anemia Acute Anemia associated with acute blood loss Acute Anemia, chronic disease Acute Chronic renal failure Acute Diarrhea Acute ESRD (end stage renal disease) Acute End stage renal disease Acute End stage renal disease Acute Hyperkalemia Acute Hyperkalemia Acute Hyperkalemia Acute Hyperkalemia Acute Hyperkalemia Acute Hyperkalemia Acute Hyperkalemia Acute Hyperkalemia Acute Hyperkalemia Acute Hyperkalemia, diminished renal excretion Acute Hypertension Acute Hypocalcemia Acute Kidney failure Acute Kidney failure Acute Kidney failure Acute Metabolic acidosis Acute Renal failure Acute Shingles (herpes zoster) polyneuropathy Acute Uremia Acute Uremia Acute
[2017-02-18] MEDS ORDERED: MANNITOL 25% 12.5 GM/50 ML VIAL IVP ONE (18:09)
[2017-02-18] MEDS: HEPARIN 5,000 UNIT/0.5 ML SYR SC SCH (22:09)
[2017-02-19 04:52] LABS: ANION GAP 14 mEq/L (8-16); CALCIUM 7.8 mg/dL (8.5-10.4); CARBON DIOXIDE 24 mEq/l (22-31); CHLORIDE 100 mEq/L (97-110); GLOMERULAR FILTRATION RATE 7; GLUCOSE 111 mg/dL (70-100); POTASSIUM 4.4 mEq/L (3.5-5.2); SODIUM 138 mEq/L (134-144)
[2017-02-19 04:55] LABS: CREATININE 8.2 mg/dL (0.7-1.3)
[2017-02-19] MEDS: HEPARIN 5,000 UNIT/0.5 ML SYR SC SCH ×3 (06:06→21:33)
--- NOTE | 2017-02-19 09:04 | SOAPPROG ---
JACQUELINE Progress Note Assessment/Plan: Assessment:Plan: ESRD-stable Hd last night -plan for Hd again this morning -K much improved -volume status okay -will perform daily dialysis while he is an inpatient Access-stable Edema-UF as tolerated Hyperkalemia-resolved Disposition-pending 02/19/17 09:02 Subjective: stable overnite Objective: Vital Signs Temp Pulse Resp BP Pulse Ox 36.6 C 57 L 14 168/70 H 98 02/19/17 07:12 02/19/17 07:12 02/19/17 07:12 02/19/17 07:12 02/19/17 07:12 Laboratory Results 02/19/17 03:54 02/18/17 02/19/17 02/20/17 05:59 05:59 05:59 Intake Total 250 Balance 250 Physical Exam - Physical Exam General Appearance: alert, no apparent distress, thin EENT: normal ENT inspection Neck: normal inspection Respiratory: decreased breath sounds (at bases) Cardiac/Chest: regular rate, rhythm, systolic murmur Abdomen: normal bowel sounds, non-tender, soft, No organomegaly Skin: normal color, warm/dry Extremities: swelling (trace to upper shins) Neuro/Psych: no motor/sensory deficits, alert, normal mood/affect ICD10 Worksheet Patient Problems: Problems Problem Status Onset End stage renal disease Acute Hyperkalemia Acute Abdominal pain Acute Acute renal failure Acute Acute upper GI bleed Acute Anemia Acute Anemia associated with acute blood loss Acute Anemia, chronic disease Acute Chronic renal failure Acute Diarrhea Acute ESRD (end stage renal disease) Acute End stage renal disease Acute End stage renal disease Acute Hyperkalemia Acute Hyperkalemia Acute Hyperkalemia Acute Hyperkalemia Acute Hyperkalemia Acute Hyperkalemia Acute Hyperkalemia Acute Hyperkalemia Acute Hyperkalemia Acute Hyperkalemia, diminished renal excretion Acute Hypertension Acute Hypocalcemia Acute Kidney failure Acute Kidney failure Acute Kidney failure Acute Metabolic acidosis Acute Renal failure Acute Shingles (herpes zoster) polyneuropathy Acute Uremia Acute Uremia Acute
[2017-02-19] MEDS ORDERED: NS 500 ML IV PRN (09:20)
[2017-02-19] MEDS ORDERED: MANNITOL 25% 12.5 GM/50 ML VIAL IV ONE (09:30)
[2017-02-19] MEDS ORDERED: NITROGLYCERIN 0.4 MG BTL SL PRN (09:44)
[2017-02-19] MEDS ORDERED: CHOLECALCIFEROL VIT D3 50,000 UNIT CAP PO SCH (09:45)
--- NOTE | 2017-02-19 12:43 | HOSPPROG ---
Hospitalist Progress Note Assessment/Plan: ESRD - HD per renal Hyperkalemia - Improved with HD. Follow. Metabolic acidosis - Improved, cont oral NaHCO3 Anemia of CKD - Hgb at baseline, epo per renal service CAD - stable, no CP, cont outpt meds. No on ASA due to h/o GIB. H/O GIB - bled on AC and ASA alone. Hgb currently stable Full code Dispo - cont inpt Subjective: Pt feels well, currently on dialysis. Denies CP or SOB. Diarrhea is resolved. No current complaints. Objective: Vital Signs Temp Pulse Resp BP Pulse Ox 36.6 C 57 L 14 168/70 H 98 02/19/17 07:12 02/19/17 07:12 02/19/17 07:12 02/19/17 07:12 02/19/17 07:12 Laboratory Results 02/19/17 03:54 02/18/17 02/19/17 02/20/17 05:59 05:59 05:59 Intake Total 250 240 Balance 250 240 - Physical Exam Constitutional: no apparent distress Eyes: PERRL Ears, Nose, Mouth, Throat: moist mucous membranes Cardiovascular: regular rate and rhythym Respiratory: no respiratory distress, clear to auscultation Gastrointestinal: normoactive bowel sounds, soft, non-tender abdomen Skin: warm Musculoskeletal: full muscle strength, other (1+ b/l LE edema) Neurologic: AAOx3 Psychiatric: interacting appropriately ICD10 Worksheet Patient Problems: Problems Problem Status Onset End stage renal disease Acute Hyperkalemia Acute Abdominal pain Acute Acute renal failure Acute Acute upper GI bleed Acute Anemia Acute Anemia associated with acute blood loss Acute Anemia, chronic disease Acute Chronic renal failure Acute Diarrhea Acute ESRD (end stage renal disease) Acute End stage renal disease Acute End stage renal disease Acute Hyperkalemia Acute Hyperkalemia Acute Hyperkalemia Acute Hyperkalemia Acute Hyperkalemia Acute Hyperkalemia Acute Hyperkalemia Acute Hyperkalemia Acute Hyperkalemia Acute Hyperkalemia, diminished renal excretion Acute Hypertension Acute Hypocalcemia Acute Kidney failure Acute Kidney failure Acute Kidney failure Acute Metabolic acidosis Acute Renal failure Acute Shingles (herpes zoster) polyneuropathy Acute Uremia Acute Uremia Acute
[2017-02-19] MEDS: NEPHROVITE FOLIC ACID/VIT B&C 1 TAB PO SCH (14:31)
[2017-02-19] MEDS: ATORVASTATIN CALCIUM 40 MG TAB PO SCH (14:31)
[2017-02-19] MEDS: PANTOPRAZOLE SODIUM 40 MG TAB PO SCH (14:31)
[2017-02-19] MEDS: CALCIUM CARBONATE 500 MG CHEWABLE TAB PO SCH ×2 (14:32→18:22)
[2017-02-19] MEDS: METOPROLOL TARTRATE 25 MG TAB PO SCH ×2 (14:32→21:33)
[2017-02-19] MEDS ORDERED: HEPARIN 50,000 UNIT/10 ML VIAL ONE (20:23)
[2017-02-20 05:13] LABS: ALBUMIN 3.2 g/dL (3.5-5.0); ANION GAP 11 mEq/L (8-16); CALCIUM 7.6 mg/dL (8.5-10.4); CARBON DIOXIDE 27 mEq/l (22-31); CHLORIDE 97 mEq/L (97-110); CREATININE 5.3 mg/dL (0.7-1.3); GLOMERULAR FILTRATION RATE 11; GLUCOSE 88 mg/dL (70-100); POTASSIUM 4.3 mEq/L (3.5-5.2); SODIUM 135 mEq/L (134-144)
[2017-02-20] MEDS: HEPARIN 5,000 UNIT/0.5 ML SYR SC SCH ×2 (06:19→12:47)
[2017-02-20] MEDS: METOPROLOL TARTRATE 25 MG TAB PO SCH (08:21)
[2017-02-20] MEDS: PANTOPRAZOLE SODIUM 40 MG TAB PO SCH (08:22)
[2017-02-20] MEDS: CALCIUM CARBONATE 500 MG CHEWABLE TAB PO SCH ×2 (08:22→12:47)
[2017-02-20] MEDS: ATORVASTATIN CALCIUM 40 MG TAB PO SCH (08:22)
[2017-02-20] MEDS: NEPHROVITE FOLIC ACID/VIT B&C 1 TAB PO SCH (08:22)
[2017-02-20 08:23] VITALS: PULSE 58
[2017-02-20] MEDS ORDERED: SODIUM BICARBONATE 650 MG TAB PO SCH (09:00)
--- NOTE | 2017-02-20 10:41 | SOAPPROG ---
SOAP Progress Note Assessment/Plan: Assessment: 1. esrd: no benefits for outpt hd, admitted for hyperkalemia. Now s/p hdX2, for hd again today. Feeling better, should be stable for d/c after hd today. 2. HyperK: resolved with hd 3. met acidosis: hd, po bicarb 4. anemia: epo. Plan: 02/20/17 10:37 Subjective: s/p hd Mon/Tues. Feeling better, for hd again later today. Objective: Vital Signs Temp Pulse Resp BP Pulse Ox 36.6 C 58 L 10 L 155/76 H 96 02/20/17 07:24 02/20/17 08:21 02/20/17 07:24 02/20/17 08:23 02/20/17 07:24 Laboratory Results 02/20/17 04:03 02/19/17 02/20/17 02/21/17 05:59 05:59 05:59 Intake Total 250 340 Balance 250 340 Physical Exam - Physical Exam General Appearance: no apparent distress Respiratory: decreased breath sounds (L base) Cardiac/Chest: regular rate, rhythm, other (no rub) Extremities: pedal edema (none) ICD10 Worksheet Patient Problems: Problems Problem Status Onset End stage renal disease Acute Hyperkalemia Acute Abdominal pain Acute Acute renal failure Acute Acute upper GI bleed Acute Anemia Acute Anemia associated with acute blood loss Acute Anemia, chronic disease Acute Chronic renal failure Acute Diarrhea Acute ESRD (end stage renal disease) Acute End stage renal disease Acute End stage renal disease Acute Hyperkalemia Acute Hyperkalemia Acute Hyperkalemia Acute Hyperkalemia Acute Hyperkalemia Acute Hyperkalemia Acute Hyperkalemia Acute Hyperkalemia Acute Hyperkalemia Acute Hyperkalemia, diminished renal excretion Acute Hypertension Acute Hypocalcemia Acute Kidney failure Acute Kidney failure Acute Kidney failure Acute Metabolic acidosis Acute Renal failure Acute Shingles (herpes zoster) polyneuropathy Acute Uremia Acute Uremia Acute
[2017-02-20 11:30] VITALS: BP 144/72; RESP 14; TEMP 98.4; O2SAT 95
--- NOTE | 2017-02-20 19:22 | GDS ---
[f rep st] DISCHARGE SUMMARY DISCHARGE DIAGNOSES: 1. End-stage renal disease, dialysis dependent, without outpatient dialysis benefits. 2. Hyperkalemia, resolved with dialysis. 3. Metabolic acidosis, resolved with dialysis and oral sodium bicarbonate. 4. Anemia of chronic kidney disease, stable. 5. Coronary artery disease, stable. 6. History of gastrointestinal bleed. HISTORY OF DETAILS: Please see the History and Physical dated February 18. In brief, the patient is a 67-year-old male, well known to the hospitalist service for recurrent hos pitalizations for emergent dialysis, as he unfortunately lacks outpatient dialysis benefits. He pre sents to the emergency department with diarrhea and edema. He is admitted for emergent dialysis. HOSPITAL COURSE: Patient is admitted to the cardiac telemetry unit. He presented with a potassium of 7.1, and a serum CO2 of 17. He underwent emergent dialysis the evening of admission, followed by 2 more consecutive days of dialysis. His creatinine is down from 13.9 to 5.3, his potassium is nor malized at 4.3, his symptoms are improved. He is stable for discharge. DISPOSITION: Patient is discharged home in stable condition. FOLLOWUP: Dr. Jacqueline Rodriges, primary care, with [facility]. DISCHARGE MEDICATIONS: He will continue all outpatient medications as previously prescribed. There are no new medications on discharge. /[id number]/MODL
[2017-02-20] MEDS ORDERED: HEPARIN 50,000 UNIT/10 ML VIAL ONE (19:47)
== END 2017-02-20 19:09 | disposition home or self-care (01) | DRG 640 ==
LOC: F2W 17:50
PROVIDERS: ADMIT Internal Medicine; ATTEND Hospitalist
PROC: 5A1D60Z (ICD-10-PCS; principal; 2017-02-18)
DX: E87.5 Hyperkalemia (principal); E87.2 Acidosis; I12.0 Hypertensive chronic kidney disease with stage 5 chronic kidney disease or end stage renal disease; N18.6 End stage renal disease; Z99.2 Dependence on renal dialysis; D63.1 Anemia in chronic kidney disease; I25.10 Atherosclerotic heart disease of native coronary artery without angina pectoris; Z95.5 Presence of coronary angioplasty implant and graft; K21.9 Gastro-esophageal reflux disease without esophagitis; Z79.82 Long term (current) use of aspirin
CPT/HCPCS: J1644; J1815; J2150

== ENCOUNTER 2017-02-25 15:16 | Inpatient (IN) | payer OTHER ==
--- NOTE | 2017-02-25 16:10 | EDPHY ---
H & P Time Seen by Provider: 02/25/17 15:44 HPI/ROS: CHIEF COMPLAINT: Here for dialysis HISTORY OF PRESENT ILLNESS: Patient has end-stage renal disease and is dialysis dependent, was last admitted 1 week ago on the 18 of February. Presents feeling he needs dialysis with his usual symptom which is he developed diarrhea this morning. REVIEW OF SYSTEMS: Eye: no change in vision ENT: no sore throat Cardiac: no chest pain or syncope Pulmonary: no cough or SOB Abdomen: No vomiting or abdominal pain Musculoskeletal: no back pain Skin: Continues with rash on his ankle Neuro: no headache Constitutional: no fever : no urinary symptoms A comprehensive 10 point review of systems is otherwise negative aside from elements mentioned in the history of present illness. PAST MEDICAL HISTORY: End-stage renal disease work on dialysis, coronary artery disease, GI bleed, anemia, hypertension. Social history: No outpatient access to dialysis. Works at [employer]. General Appearance: Alert and conversant, cooperative. Eyes: No scleral icterus. ENT, Mouth: Normal mucous membranes. Respiratory: Normal respiratory effort, breath sounds equal, lungs are clear to auscultation. Cardiovascular: Regular rate and rhythm. Right subclavian tunneled dialysis catheter present. Gastrointestinal: Abdomen is soft and non tender. Neurological: Alert and oriented x3. Normally conversant. Face symmetric, normal movement and sensation in all extremities. Skin: Right medial ankle with scaling skin rash which is stable. Musculoskeletal: Trace bilateral peripheral edema. No calf tenderness. Psychiatric: Not agitated. Emergency Department course/MDM: The i-STAT potassium 6.0, normal intervals. Admit for dialysis. Smoking Status: Former smoker Constitutional: Initial Vital Signs Temperature (C) 36.6 C 02/25/17 15:22 Heart Rate 54 L 02/25/17 15:22 Respiratory Rate 17 02/25/17 15:22 Blood Pressure 196/69 H 02/25/17 15:22 O2 Sat (%) 97 02/25/17 15:22 O2 Delivery Mode Room Air Allergies/Adverse Reactions: No Known Allergies Allergy (Verified 02/25/17 15:21) Home Medications: Medication Instructions Recorded Atorvastatin Calcium [Lipitor 40 80 mg PO DAILY 10/30/16 mg (*)] Nitroglycerin [Nitrostat 0.4 mg 0.4 mg SL AD PRN 10/30/16 (*)] Sodium Bicarbonate [Na Bicarb] 1,300 mg PO DAILY 10/30/16 Calcium Carbonate [Tums 500MG (*)] 500 mg PO TIDMEAL #90 tab.chew 11/01/16 Pantoprazole Sodium [Protonix 40mg 40 mg PO DAILY 12/03/16 (*)] Folic Acid/Vit B Com W/C 1 each PO DAILY 01/07/17 [Nephro-Peyton Rx] Cholecalciferol Vit D3 [Vitamin D3 50,000 unit PO TU 01/21/17 (*)] Metoprolol Tartrate [Lopressor 25 12.5 mg PO BID #60 tab 01/22/17 mg (*)] Hydralazine HCl 50 mg PO DAILY #30 tablet 02/06/17 amLODIPine BESYLATE [Norvasc 10 mg 10 mg PO DAILY #30 tab 02/20/17 (*)] Medical Decision Making - Diagnostics EKG Interpretation: 12-lead EKG interpreted by me; official reading is in trace master. My interpretation is sinus rhythm rate 51 with QRS 88 Differential Diagnosis: Differential for diarrhea considered including but not limited to infectious diarrhea, GI bleed, ischemic colitis, uremia. Consult/Admit Bed Type: [place] [address], [place] for hospitalist - Data Points Laboratory Results: Laboratory Results 02/25/17 16:02 02/25/17 16:02 02/25/17 02/25/17 02/25/17 16:20 16:02 16:02 WBC RBC Hgb POC Hgb 6.8 gm/dL L gm/dL (13.7-17.5) Hct POC Hct 20 % L % (40-51) MCV MCH MCHC RDW Plt Count MPV Neut % (Auto) Lymph % (Auto) [place] % (Auto) Eos % (Auto) Baso % (Auto) Nucleat RBC Rel Count Absolute Neuts (auto) Absolute Lymphs (auto) Absolute Monos (auto) Absolute Eos (auto) Absolute Basos (auto) Absolute Nucleated RBC Immature Gran % Immature Gran # Platelet Estimate Large Platelets Polychromasia Microcytic Cells Elliptocytes Keratocytes Schistocytes Smear Review By POC Sodium 141 mEq/L mEq/L (134-144) Sodium 143 mEq/L mEq/L (134-144) POC Potassium 6.0 mEq/L H mEq/L (3.3-5.0) Potassium 6.2 mEq/L H mEq/L (3.5-5.2) POC Chloride 108 mEq/L mEq/L (97-110) Chloride 104 mEq/L mEq/L (97-110) Carbon Dioxide 16 mEq/l L mEq/l (22-31) Anion Gap 23 mEq/L H mEq/L (8-16) POC BUN 113 mg/dL H* mg/dL (7-23) BUN 105 mg/dL H* mg/dL (7-23) Creatinine 13.4 mg/dL H* mg/dL (0.7-1.3) POC Creatinine 14.8 mg/dL H* mg/dL (0.7-1.3) Estimated GFR 4 Glucose 92 mg/dL mg/dL (70-100) POC Glucose 91 mg/dL mg/dL (70-100) Calcium 7.1 mg/dL L mg/dL (8.5-10.4) Phosphorus 6.2 mg/dL H mg/dL (2.5-4.5) Total Bilirubin 0.5 mg/dL mg/dL (0.1-1.4) AST 10 IU/L L IU/L (17-59) ALT 28 IU/L IU/L (21-72) Alkaline Phosphatase 144 IU/L H IU/L (38-126) Total Protein 6.6 g/dL g/dL (6.3-8.2) Albumin 4.4 g/dL g/dL (3.5-5.0) 02/25/17 16:02 WBC 6.56 10^3/uL 10^3/uL (3.80-9.50) RBC 2.16 10^6/uL L 10^6/uL (4.40-6.38) Hgb 6.9 g/dL L g/dL (13.7-17.5) POC Hgb Hct 21.1 % L % (40.0-51.0) POC Hct MCV 97.7 fL fL (81.5-99.8) MCH 31.9 pg pg (27.9-34.1) MCHC 32.7 g/dL g/dL (32.4-36.7) RDW 15.0 % % (11.5-15.2) Plt Count 138 10^3/uL L 10^3/uL (150-400) MPV 10.2 fL fL (8.7-11.7) Neut % (Auto) 65.5 % % (39.3-74.2) Lymph % (Auto) 15.4 % % (15.0-45.0) [place] % (Auto) 7.0 % % (4.5-13.0) Eos % (Auto) 10.8 % H % (0.6-7.6) Baso % (Auto) 0.8 % % (0.3-1.7) Nucleat RBC Rel Count 0.0 % % (0.0-0.2) Absolute Neuts (auto) 4.30 10^3/uL 10^3/uL (1.70-6.50) Absolute Lymphs (auto) 1.01 10^3/uL 10^3/uL (1.00-3.00) Absolute Monos (auto) 0.46 10^3/uL 10^3/uL (0.30-0.80) Absolute Eos (auto) 0.71 10^3/uL H 10^3/uL (0.03-0.40) Absolute Basos (auto) 0.05 10^3/uL 10^3/uL (0.02-0.10) Absolute Nucleated RBC 0.00 10^3/uL 10^3/uL (0-0.01) Immature Gran % 0.5 % % (0.0-1.1) Immature Gran # 0.03 10^3/uL 10^3/uL (0.00-0.10) Platelet Estimate ADEQUATE (ADEQ) Large Platelets PRESENT H Polychromasia 1+ H Microcytic Cells 1+ H Elliptocytes 1+ H Keratocytes 1+ H Schistocytes 1+ H Smear Review By Pending POC Sodium Sodium POC Potassium Potassium POC Chloride Chloride Carbon Dioxide Anion Gap POC BUN BUN Creatinine POC Creatinine Estimated GFR Glucose POC Glucose Calcium Phosphorus Total Bilirubin AST ALT Alkaline Phosphatase Total Protein Albumin Medications Given: Discontinued Medications Calcium Carbonate (Tums) 500 mg PO TIDMEAL BLAIR Stop: 08/24/17 17:59 Last Admin: 02/25/17 19:04 Dose: 500 mg Sodium Polystyrene Sulfonate (Kayexalate) 30 gm PO ONCE ONE Stop: 02/25/17 17:30 Last Admin: 02/25/17 19:05 Dose: Not Given Point of Care Test Results: 02/25/17 16:20 POC Sodium 141 POC Potassium 6.0 H POC Chloride 108 POC BUN 113 H* POC Creatinine 14.8 H* POC Glucose 91 Departure - Departure Disposition: [facility] Inpatient Acute Clinical Impression: End stage renal disease, Hyperkalemia, diminished renal excretion Condition: Good
--- NOTE | 2017-02-25 16:11 | CPEKG ---
Heart Rate: 51 RR Interval: 1176 P-R Interval: 176 QRSD Interval: 88 QT Interval: 500 QTC Interval: 461 P [place]: 60 QRS [place]: 61 T Wave [place]: 64 EKG Severity - NORMAL ECG - EKG Impression: SINUS RHYTHM Electronically Signed By: Esteban Teran 25-Feb-2017 16:22:26
[2017-02-25 16:13] LABS: % IMMATURE GRANULYOCYTES 0.5 % (0.0-1.1); ABSOLUTE IMMATURE GRANULOCYTES 0.03 10^3/uL (0.00-0.10); ADD DIFF? NO; ADD MORPH? YES; ADD SCAN? NO; ATYPICAL LYMPHOCYTE FLAG 0 (0-99); FRAGMENT RBC FLAG 0 (0-99); HEMATOCRIT 21.1 % (40.0-51.0); LEFT SHIFT FLG 0 (0-99); LIPEMIA HEMOLYSIS FLAG 80 (0-99); MEAN CELL HEMOGLOBIN 31.9 pg (27.9-34.1); MEAN CELL HEMOGLOBIN CONCENTR. 32.7 g/dL (32.4-36.7); MEAN CELL VOLUME 97.7 fL (81.5-99.8); MEAN PLATELET VOLUME 10.2 fL (8.7-11.7); PLATELET CLUMPS FLAG 0 (0-99); PLATELET COUNT 138 10^3/uL (150-400); RED BLOOD CELL COUNT 2.16 10^6/uL (4.40-6.38)
[2017-02-25 16:16] LABS: HEMOGLOBIN 6.9 g/dL (13.7-17.5)
[2017-02-25 16:32] LABS: ALANINE AMINOTRANSFERASE 28 IU/L (21-72); ALBUMIN 4.4 g/dL (3.5-5.0); ALKALINE PHOSPHATASE 144 IU/L (38-126); ANION GAP 23 mEq/L (8-16); ASPARTATE AMINOTRANSFERASE 10 IU/L (17-59); BILIRUBIN,TOTAL 0.5 mg/dL (0.1-1.4); CALCIUM 7.1 mg/dL (8.5-10.4); CARBON DIOXIDE 16 mEq/l (22-31); CHLORIDE 104 mEq/L (97-110); GLOMERULAR FILTRATION RATE 4; GLUCOSE 92 mg/dL (70-100); POTASSIUM 6.2 mEq/L (3.5-5.2); SODIUM 143 mEq/L (134-144); TOTAL PROTEIN 6.6 g/dL (6.3-8.2)
[2017-02-25 16:41] LABS: CREATININE 13.4 mg/dL (0.7-1.3)
[2017-02-25 17:00] LABS: MICROCYTES 1+
[2017-02-25 17:01] LABS: ELLIPTOCYTES 1+; KERATOCYTES 1+; LARGE PLATELETS PRESENT; PLATELET ESTIMATE ADEQUATE (ADEQ); POLYCHROMASIA 1+; SCHISTOCYTES 1+
[2017-02-25] MEDS ORDERED: ONDANSETRON 4 MG/2 ML VIAL IVP PRN (17:25)
[2017-02-25] MEDS ORDERED: ACETAMINOPHEN 325 MG TAB PO PRN (17:25)
[2017-02-25] MEDS ORDERED: ONDANSETRON DISINTEGRATING 4 MG TAB PO PRN (17:25)
[2017-02-25] MEDS ORDERED: NITROGLYCERIN 0.4 MG BTL SL PRN (17:26)
[2017-02-25] MEDS ORDERED: SODIUM POLY SULF 15 GM/60 ML BOTTLE PO ONE (17:29)
[2017-02-25] MEDS ORDERED: CALCIUM CARBONATE 500 MG CHEWABLE TAB PO SCH (18:00)
--- NOTE | 2017-02-25 19:11 | GHP ---
[f rep st] HISTORY AND PHYSICAL DATE OF ADMISSION: 02/25/2017 CHIEF COMPLAINT: Symptomatic uremia, hyperkalemia. HISTORY OF PRESENT ILLNESS: A 67-year-old, male without access to outpatient dialysis, coronary artery disease and chronic anemia who presents to the hospital with dialysis needs. Last HD was last week. He began having diarrhea this morning which was watery and this is his normal symptom when needing dialysis. Denies any blood or black stools. No nose bleeds. Denies any nausea, vomiting, chest pain or shortness of breath. Feels mildly tired. Mild lower extremity edema. REVIEW OF SYSTEMS: I completed a 10-point review of systems, negative except as noted in HPI. PAST MEDICAL HISTORY: 1. End-stage renal disease without routine access to outpatient dialysis. 2. Coronary artery disease. 3. History of GI bleed. He bled on dual anti-platelet treatment with Plavix and aspirin and again on aspirin alone. 4. Gastroesophageal reflux disease. 5. Anemia of chronic kidney disease. 6. Esophagitis. 7. Hypertension. 8. Duodenal stricture in 2015. PAST SURGICAL HISTORY: Right IJ tunnel catheter. FAMILY HISTORY: His mother had a stroke and hypertension. SOCIAL HISTORY: He is a former smoker. He denies alcohol or drug use. He lives independently and works at [email or web address]. HOME MEDICATIONS: Tylenol p.r.n., Norvasc 10 mg daily, Atorvastatin 80 mg daily , Tums 500 mg t.i.d., ergocalciferol 57784 units weekly, hydralazine 50 mg b.i.d., metoprolol 20 12.5 mg b.i.d., nitroglycerin p.r.n., Zofran as needed, PPI 40 mg daily, sodium bicarb 1300 mg daily, Ev-Peyton. ALLERGIES: None. PHYSICAL EXAMINATION: VITAL SIGNS: Temperature 36.6, blood pressure 175/81, heart rate 49, respirations 16, 100% on room air. GENERAL: Patient is well appearing, lying in bed, no acute distress. HEENT: PERRLA. EOMI. Moist mucous membranes. CV: Regular rate and rhythm. No murmurs, gallops, or rubs. Trace to +1 lower extremity edema. LUNGS: Clear, no crackles. ABDOMEN: Soft, nontender, nondistended, positive bowel sounds. : No suprapubic tenderness. MUSCULOSKELETAL: 5/5 upper and lower extremity strength. NEURO: 2 through 12 intact. PSYCHIATRIC: Alert and oriented x3. SKIN: venous stasis changes right ankle, no e/o cellulitis DIAGNOSTIC STUDIES: EKG is personally reviewed by me, bradycardic, normal sinus rhythm, mildly peaked T-waves seen on prior. LABS: WBC 6.6, hemoglobin 6.9, hematocrit 21, platelets 138. Sodium 141, potassium 6, chloride 106, BUN 13, creatinine 14, glucose 91, phos 6.2, calcium 7.1. ASSESSMENT AND PLAN: 1. Hyperkalemia: No new EKG changes. Renal has been consulted and will plan for dialysis this morning. Dosed Kayexalate tonight and monitor on telemetry. 2. Symptomatic uremia: BUN greater than 100. Again HD tomorrow. 3. Metabolic acidosis: Secondary to end-stage renal disease. Continue bicarb. 4. Coronary artery disease. He is chest pain-free. Continue beta bonifacio and statin. No aspirin given history of GI bleed. 5. Anemia of chronic kidney disease: He denies any active bleeding. Renal wants transfusion with HD in AM given hyperkalemia. 6. Thrombocytopenia. His is at his baseline. No active bleeding. 7. History of GI bleed. Continue his PPI. 8. Accelerated hypertension secondary to volume overload and end-stage renal disease. Continue home medications. Dialysis tomorrow. 9. Diet: Renal. 10. DVT prophylaxis. SCDs given anemia. 11. Code status: Full code. DISPOSITION: The patient warrants inpatient admission given acute hyperkalemia requiring telemetry and hemodialysis. /[id number]/MODL MTDD
--- NOTE | 2017-02-25 19:19 | SOAPPROG ---
SOEDY Progress Note Assessment/Plan: Assessment/Plan: ESRD: lacks benefits for routine outpatient dialysis. - Will plan on HD in am. Hyperkalemia: pt given kayexalate and also on sodium bicarb, will modulate further on HD. Anemia: Hgb 6.9, would recommend transfusing on HD tomorrow. HTN: uncontrolled, will increase hydralazine to BID and continue other meds. ELLIOTT: Phos 6.2, will increase calcium carbonate with meals. Metabolic acidosis: continue sodium bicarb, will further modulate with HD. Subjective: Mr. Walton is a 67 yo M with h/o ESRD who lacks benefits for regular outpatient dialysis, came back to ED today for dialysis. Pt states he is feeling well, no chest pain, no dyspnea, no volume overload. He did note having diarrhea again today, which is a sign to him that he needs dialysis. Objective: Vital Signs Temp Pulse Resp BP Pulse Ox 36.6 C 49 L 16 175/81 H 100 02/25/17 18:22 02/25/17 18:22 02/25/17 18:22 02/25/17 18:22 02/25/17 18:22 General: alert and oriented, no acute distress Eyes; EOMI, PERRL OP: Clear CV: RRR Resp: nonlabored respirations on RA Abd; Soft, NT/ND Ext: trace edema BLE Neuro: CN II-XII grossly intact, no asterixis Psych; cooperative, appropriate mood and affect Access: R IJ tunneled catheter ICD10 Worksheet Patient Problems: Problems Problem Status Onset End stage renal disease Acute Hyperkalemia, diminished renal excretion Acute Abdominal pain Acute Acute renal failure Acute Acute upper GI bleed Acute Anemia Acute Anemia associated with acute blood loss Acute Anemia, chronic disease Acute Chronic renal failure Acute Diarrhea Acute ESRD (end stage renal disease) Acute End stage renal disease Acute End stage renal disease Acute Hyperkalemia Acute Hyperkalemia Acute Hyperkalemia Acute Hyperkalemia Acute Hyperkalemia Acute Hyperkalemia Acute Hyperkalemia Acute Hyperkalemia Acute Hyperkalemia Acute Hyperkalemia Acute Hypertension Acute Hypocalcemia Acute Kidney failure Acute Kidney failure Acute Kidney failure Acute Metabolic acidosis Acute Renal failure Acute Shingles (herpes zoster) polyneuropathy Acute Uremia Acute Uremia Acute
[2017-02-25] MEDS ORDERED: HEPARIN 50,000 UNIT/10 ML VIAL IVP ONE (19:45)
[2017-02-25] MEDS: METOPROLOL TARTRATE 25 MG TAB PO SCH (20:20)
[2017-02-26 05:07] LABS: ANION GAP 22 mEq/L (8-16); CALCIUM 7.2 mg/dL (8.5-10.4); CARBON DIOXIDE 13 mEq/l (22-31); CHLORIDE 105 mEq/L (97-110); GLUCOSE 95 mg/dL (70-100); SODIUM 140 mEq/L (134-144)
[2017-02-26 05:34] LABS: GLOMERULAR FILTRATION RATE 3
[2017-02-26 05:35] LABS: POTASSIUM 6.5 mEq/L (3.5-5.2)
[2017-02-26 05:36] LABS: CREATININE 14.5 mg/dL (0.7-1.3)
[2017-02-26] MEDS: CALCIUM CARBONATE 500 MG CHEWABLE TAB PO SCH ×3 (09:59→18:27)
[2017-02-26] MEDS: SODIUM BICARBONATE 650 MG TAB PO SCH (10:00)
--- NOTE | 2017-02-26 10:26 | SOAPPROG ---
JACQUELINE Progress Note Assessment/Plan: Assessment:Plan: ESRD-Hd today -s/p emergent dialysis last night -tolerating treatment well -next Hd tomorrow Hyperkalemia-Rx with dialysis Anemia-symptomatic -prbc's with Hd today Access-stable Dispo-pending 02/26/17 10:24 Subjective: stable on dialysis Objective: Vital Signs Temp Pulse Resp BP Pulse Ox 36.5 C 52 L 16 124/101 H 98 02/26/17 07:45 02/26/17 07:45 02/26/17 07:45 02/26/17 07:45 02/26/17 07:45 Laboratory Results 02/26/17 04:07 02/25/17 02/26/17 02/27/17 05:59 05:59 05:59 Intake Total 700 Output Total 0 Balance 700 Physical Exam - Physical Exam General Appearance: WD/WN, alert, no apparent distress, thin EENT: normal ENT inspection Neck: normal inspection Respiratory: lungs clear, normal breath sounds, No respiratory distress Cardiac/Chest: regular rate, rhythm, No diastolic murmur, No systolic murmur Abdomen: normal bowel sounds, non-tender, soft Skin: normal color, warm/dry Extremities: swelling (RLE at ankle and foot, R hand) ICD10 Worksheet Patient Problems: Problems Problem Status Onset End stage renal disease Acute Hyperkalemia, diminished renal excretion Acute Abdominal pain Acute Acute renal failure Acute Acute upper GI bleed Acute Anemia Acute Anemia associated with acute blood loss Acute Anemia, chronic disease Acute Chronic renal failure Acute Diarrhea Acute ESRD (end stage renal disease) Acute End stage renal disease Acute End stage renal disease Acute Hyperkalemia Acute Hyperkalemia Acute Hyperkalemia Acute Hyperkalemia Acute Hyperkalemia Acute Hyperkalemia Acute Hyperkalemia Acute Hyperkalemia Acute Hyperkalemia Acute Hyperkalemia Acute Hypertension Acute Hypocalcemia Acute Kidney failure Acute Kidney failure Acute Kidney failure Acute Metabolic acidosis Acute Renal failure Acute Shingles (herpes zoster) polyneuropathy Acute Uremia Acute Uremia Acute
[2017-02-26] MEDS: ATORVASTATIN CALCIUM 40 MG TAB PO SCH (12:19)
[2017-02-26] MEDS: PANTOPRAZOLE SODIUM 40 MG TAB PO SCH (12:19)
[2017-02-26] MEDS: METOPROLOL TARTRATE 25 MG TAB PO SCH ×2 (12:20→22:04)
[2017-02-26] MEDS ORDERED: HEPARIN 50,000 UNIT/10 ML VIAL ONE (12:44)
--- NOTE | 2017-02-26 14:14 | WOCRNPDOC ---
WOMCKENNA Advanced Assessment Note - Skin Integrity Problem, Advanced Assess Right Ankle Dressing Type: Open to Air Exudate Amount: Scant Exudate Color: Red, Brown Exudate Characteristic(s): Dried Joan Wound Tissue: Hemosiderin Staining, Venous Dermatitis Joan Wound Swelling: None Wound Bed Color: Brown, Red Wound Bed Constitution: Smooth Tissue, Scab Site Odor: None Site Measurement - Head-to-Toe Length X Width X Depth (cm): see note Skin Integrity Problem Comment: Scattered, shallow abrasion-like lesions noted throughout R lower leg and ankle. Upon assessment, patient's socks were sticking to the wounds, some of which have scant bloody exudate. Patient is well -known to wound care, and has chronic venous changes in both lower extremities. His current wounds are consistent with this. He does not wear compression, and does not think he needs wound care ongoing, choosing instead to apply "lotion" to these areas. Order put in for dressing to be applied by nursing while he is inpatient. Wound care does not need to follow up with patient. Please reconsult as needed.
[2017-02-26] MEDS ORDERED: CHOLECALCIFEROL VIT D3 50,000 UNIT CAP PO SCH (17:26)
--- NOTE | 2017-02-26 18:24 | HOSPPROG ---
Hospitalist Progress Note Assessment/Plan: Assessment: 67-year-old male presents with acute hyperkalemia in the setting of end-stage renal disease Plan: 1. hyperkalemia. Acute, requiring emergent hemodialysis, secondary to end- stage renal disease, will require additional dialysis tomorrow 2. End-stage renal disease. Lacks access to outpatient therapy, requiring inpatient dialysis today 3. Metabolic acidosis. Acute on chronic, serum bicarbonate level 13, secondary to under treated end-stage renal disease, continue oral sodium bicarb tabs 4. Chronic hypertension. Secondary to end-stage renal disease, continue home medications, increased hydralazine to 50 mg twice daily 5. Bradycardia. Sinus bradycardia on telemetry, personally interpreted, holding his metoprolol dosage this afternoon -continue monitor on telemetry, high risk for arrhythmias 6. anemia of chronic kidney disease. Hemoglobin 6.8, will receive 1 unit packed red blood cells with dialysis today, repeat serum hemoglobin level tomorrow 7. chronic diastolic congestive heart failure. No evidence of acute exacerbation, monitor for signs of volume overload, currently breathing well on room air Diet. Renal Prophylaxis. High risk patient, heparin subcu Code. Full Disposition. Anticipated discharge 02/27/2017, pending additional hemodialysis required tomorrow. Subjective: Patient reports he is fatigued after dialysis Objective: Vital Signs Temp Pulse Resp BP Pulse Ox 36.6 C 47 L 14 196/98 H 97 02/26/17 15:21 02/26/17 15:21 02/26/17 15:21 02/26/17 15:21 02/26/17 15:21 Laboratory Results 02/26/17 04:07 02/25/17 02/26/17 02/27/17 05:59 05:59 05:59 Intake Total 700 120 Output Total 0 Balance 700 120 - Physical Exam Constitutional: not in pain, chronically ill appearing, cachectic, No uncomfortable Cardiovascular: systolic murmur ( 2/6 systolic murmur all valve location), No irregularly irregular, No tachycardia, No edema Respiratory: no respiratory distress, no rales or rhonchi, clear to auscultation Gastrointestinal: normoactive bowel sounds, soft, non-tender abdomen, no palpable masses Neurologic: AAOx3, sensation intact bilaterally, No weakness ( motor 5/5 bilaterally) Psychiatric: interacting appropriately, not anxious, not encephalopathic, thought process linear ICD10 Worksheet Patient Problems: Problems Problem Status Onset Acute renal failure Acute Anemia Acute Abdominal pain Acute Hyperkalemia Acute Hypocalcemia Acute Renal failure Acute Hypertension Acute Acute upper GI bleed Acute Anemia associated with acute blood loss Acute End stage renal disease Acute Metabolic acidosis Acute Diarrhea Acute Shingles (herpes zoster) polyneuropathy Acute Kidney failure Acute Hyperkalemia Acute Chronic renal failure Acute Hyperkalemia Acute Kidney failure Acute Hyperkalemia Acute Kidney failure Acute Uremia Acute Hyperkalemia Acute Hyperkalemia Acute Hyperkalemia Acute Hyperkalemia Acute Uremia Acute Hyperkalemia Acute End stage renal disease Acute Hyperkalemia Acute ESRD (end stage renal disease) Acute Anemia, chronic disease Acute End stage renal disease Acute Hyperkalemia, diminished renal excretion Acute
[2017-02-26] MEDS: NEPHROVITE FOLIC ACID/VIT B&C 1 TAB PO SCH (18:26)
[2017-02-27 05:04] LABS: HEMATOCRIT 23.1 % (40.0-51.0); HEMOGLOBIN 7.9 g/dL (13.7-17.5)
[2017-02-27 06:34] LABS: ANION GAP 15 mEq/L (8-16); CALCIUM 7.7 mg/dL (8.5-10.4); CARBON DIOXIDE 20 mEq/l (22-31); CHLORIDE 99 mEq/L (97-110); GLOMERULAR FILTRATION RATE 7; GLUCOSE 95 mg/dL (70-100); POTASSIUM 5.3 mEq/L (3.5-5.2); SODIUM 134 mEq/L (134-144)
[2017-02-27] MEDS ORDERED: EPOETIN ALFA 10,000 UNIT/ML VIAL SC ONE (11:20)
--- NOTE | 2017-02-27 11:25 | SOAPPROG ---
JACQUELINE Progress Note Assessment/Plan: Assessment: 1. esrd: 2nd consecutive hd today, labs much improved s/p 1st hd and pt looks good. Has been tolerating longer treatments recently, likely explaining his more rapid improvement than on prior admits. No indication for repeat hd tomorrow, I think he can be d/c'd home. Pt knows to return if symptoms of hyperK , overload, etc. 2. hyperK: resolved with hd. 3. anemia: transfused, will give dose of procrit prior to d/c. 4. dispo: I would be comfortable with him d/c'ing today. Plan: 02/27/17 11:22 Subjective: Just finished hd with 1.5L uf. Feels well, had no TYSON or other issue during hd. Tolerated 3.5hr treatment yesterday without issue as well. Objective: Vital Signs Temp Pulse Resp BP Pulse Ox 36.6 C 55 L 16 165/72 H 94 02/27/17 04:00 02/27/17 04:00 02/27/17 04:00 02/27/17 04:00 02/27/17 04:00 Laboratory Results 02/27/17 04:22 02/27/17 04:22 02/26/17 02/27/17 02/28/17 05:59 05:59 05:59 Intake Total 700 1235 Output Total 0 0 Balance 700 1235 Physical Exam - Physical Exam General Appearance: no apparent distress Respiratory: lungs clear Cardiac/Chest: regular rate, rhythm, other (no rub) Extremities: other (trace RLE edema) ICD10 Worksheet Patient Problems: Problems Problem Status Onset End stage renal disease Acute Hyperkalemia, diminished renal excretion Acute Abdominal pain Acute Acute renal failure Acute Acute upper GI bleed Acute Anemia Acute Anemia associated with acute blood loss Acute Anemia, chronic disease Acute Chronic renal failure Acute Diarrhea Acute ESRD (end stage renal disease) Acute End stage renal disease Acute End stage renal disease Acute Hyperkalemia Acute Hyperkalemia Acute Hyperkalemia Acute Hyperkalemia Acute Hyperkalemia Acute Hyperkalemia Acute Hyperkalemia Acute Hyperkalemia Acute Hyperkalemia Acute Hyperkalemia Acute Hypertension Acute Hypocalcemia Acute Kidney failure Acute Kidney failure Acute Kidney failure Acute Metabolic acidosis Acute Renal failure Acute Shingles (herpes zoster) polyneuropathy Acute Uremia Acute Uremia Acute
[2017-02-27] MEDS: CALCIUM CARBONATE 500 MG CHEWABLE TAB PO SCH ×2 (11:42→12:01)
[2017-02-27] MEDS: SODIUM BICARBONATE 650 MG TAB PO SCH (12:01)
[2017-02-27] MEDS: NEPHROVITE FOLIC ACID/VIT B&C 1 TAB PO SCH (12:01)
[2017-02-27] MEDS: PANTOPRAZOLE SODIUM 40 MG TAB PO SCH (12:02)
[2017-02-27] MEDS: ATORVASTATIN CALCIUM 40 MG TAB PO SCH (12:02)
[2017-02-27 12:14] VITALS: BP 174/88; PULSE 50; RESP 20; TEMP 98.9; O2SAT 100
--- NOTE | 2017-02-27 13:27 | PDDCSUM ---
Discharge Summary Discharge Summary: DISCHARGE SUMMARY FOLLOW-UP ITEMS: None DATE OF ADMISSION: 02/25/2017 DATE OF DISCHARGE: 02/27/2017 DISCHARGE DIAGNOSES: 1. Acute uremia 2. Acute hyperkalemia 3. End-stage renal disease 4. Acute metabolic acidosis 5. Sinus bradycardia 6. Anemia of chronic kidney disease 7. Chronic diastolic congestive heart failure CONSULTATIONS: Nephrology PROCEDURES / IMAGING: None CHIEF COMPLAINT: Acute diarrhea SUBJECTIVE: Patient is feeling well at time of discharge PHYSICAL EXAM ON DISCHARGE: Systolic blood pressure is 160, heart rate in the 50s, alert awake oriented x3, no apparent distress, trace bilateral lower extremity edema LABS ON DISCHARGE: Potassium 5.3, serum bicarb 20, BUN 68, hemoglobin 7.9 HOSPITAL COURSE BY PROBLEM: 1. Acute uremia. Causing patient's uremic symptoms including diarrhea, resolved after dialysis 2. Acute hyperkalemia. Requiring emergent dialysis, secondary to end-stage renal disease, resolved with hemodialysis. 3. End-stage renal disease. Patient lacks access to outpatient therapy, he requires inpatient dialysis, he has received that during this hospitalization. 4. Chronic hypertension. 2nd end-stage renal disease, patient's hydralazine was up titrated from once daily to twice daily to 3 times daily, and his metoprolol was discontinued, secondary to sinus bradycardia. 5. Acute on chronic metabolic acidosis. Serum bicarbonate level was 13 on presentation, secondary to under treated end-stage renal disease, he continues on oral sodium bicarb tabs and received dialysis during this hospitalization. 6. Anemia of chronic kidney disease. Patient's hemoglobin was 6.8, he received 1 unit packed red blood cells and his hemoglobin level 7.9 at time of discharge. 7. Chronic diastolic congestive heart failure. No evidence of acute exacerbation, patient does have some trace bilateral lower extremity edema he is breathing well on room air at time of discharge. 8. Sinus bradycardia. Patient had sinus bradycardia which persisted throughout his hospitalization, his metoprolol dosage was discontinued and his heart rate is in the 50 to 60 range at time of discharge. DISCHARGE MEDICATIONS: Please see official discharge medication reconciliation sheet in chart , hydralazine 50 mg 3 times daily, discontinuation of metoprolol, continue all other home medications. DISCHARGE INSTRUCTIONS: Patient will return when he begins to experience recurrent uremic symptoms.
== END 2017-02-27 14:47 | disposition home or self-care (01) | DRG 640 ==
LOC: OBSVTOIN 17:25 → F2W 18:04
PROVIDERS: ADMIT Internal Medicine; ATTEND Internal Medicine
PROC: 30233N1 Transfusion of Nonautologous Red Blood Cells into Peripheral Vein, Percutaneous Approach (ICD-10-PCS; principal; 2017-02-25)
PROC: 5A1D00Z (ICD-10-PCS; principal; 2017-02-25)
DX: E87.5 Hyperkalemia (principal); I13.2 Hypertensive heart and chronic kidney disease with heart failure and with stage 5 chronic kidney disease, or end stage renal disease; N18.6 End stage renal disease; I50.32 Chronic diastolic (congestive) heart failure; D63.1 Anemia in chronic kidney disease; R00.1 Bradycardia, unspecified; E87.2 Acidosis; I25.10 Atherosclerotic heart disease of native coronary artery without angina pectoris; K21.9 Gastro-esophageal reflux disease without esophagitis; Z87.891 Personal history of nicotine dependence; Z99.2 Dependence on renal dialysis
CPT/HCPCS: 82947-QW; J0885; J1644; P9016

== ENCOUNTER 2017-03-04 11:07 | Observation (INO) | payer OTHER ==
--- NOTE | 2017-03-04 12:07 | EDPHY ---
H & P Stated Complaint: Here for dialysis Time Seen by Provider: 03/04/17 12:06 - Personal History Current Tetanus Diphtheria and Acellular Pertussis (TDAP): Yes Tetanus Vaccine Date: 2010 - Medical/Surgical History Hx Asthma: No Hx Chronic Respiratory Disease: No Hx Diabetes: No Hx Cardiac Disease: Yes Hx Renal Disease: Yes Hx Cirrhosis: No Hx Alcoholism: No Hx HIV/AIDS: No Hx Splenectomy or Spleen Trauma: No Other PMH: gout, htn, hernia, anemia, cad, esophagitis, GIB on plavix, ESRD, dialysis, heart stent, shingles - Social History Smoking Status: Former smoker Constitutional: Initial Vital Signs Temperature (C) 36.5 C 03/04/17 11:15 Heart Rate 71 03/04/17 11:15 Respiratory Rate 18 03/04/17 11:15 Blood Pressure 161/77 H 03/04/17 11:15 O2 Sat (%) 97 03/04/17 11:15 O2 Delivery Mode Room Air Allergies/Adverse Reactions: No Known Allergies Allergy (Verified 03/04/17 11:14) Home Medications: Medication Instructions Recorded Atorvastatin Calcium [Lipitor 40 80 mg PO DAILY 10/30/16 mg (*)] Nitroglycerin [Nitrostat 0.4 mg 0.4 mg SL AD PRN 10/30/16 (*)] Sodium Bicarbonate [Na Bicarb] 1,300 mg PO DAILY 10/30/16 Calcium Carbonate [Tums 500MG (*)] 500 mg PO TIDMEAL #90 tab.chew 11/01/16 Pantoprazole Sodium [Protonix 40mg 40 mg PO DAILY 12/03/16 (*)] Folic Acid/Vit B Com W/C 1 each PO DAILY 01/07/17 [Nephro-Peyton Rx] Cholecalciferol Vit D3 [Vitamin D3 50,000 unit PO TU 01/21/17 (*)] amLODIPine BESYLATE [Norvasc 10 mg 10 mg PO DAILY #30 tab 02/20/17 (*)] hydrALAZINE [Apresoline 50 mg (*)] 50 mg PO TID #90 tab 02/27/17 Medical Decision Making ED Course/Re-evaluation: CHIEF COMPLAINT: Dialysis HISTORY OF PRESENT ILLNESS: The patient is a 67 y/o male with end-stage renal disease and is dialysis dependent. This is his 39th visit in the last 12 months for dialysis and he was last admitted 1 week ago on 02/25/17. He is experiencing his usual symptoms. Denies acute or new symptoms. REVIEW OF SYSTEMS: A 10 point review of systems was performed and is negative with the exception of the elements mentioned in the history of present illness. PHYSICAL EXAM: HR, BP, O2 Sat, RR. Temp noted General Appearance: Alert, well hydrated, appropriate, and non-toxic appearing. Head: Atraumatic without scalp tenderness or obvious injury Eyes: Pupils equal, round, reactive to light and accommodation, EOMI, no trauma , no injection. Ears: Clear bilaterally, no perforation, normal landmarks Nose: Atraumatic, no rhinorrhea, clear. Throat: Mucus membranes moist. Neck: Supple, nontender, no lymphadenopathy. Respiratory: No retractions, no distress, no wheezes, and no accessory muscle use. Lungs are clear to auscultation bilaterally. Cardiovascular: Regular rate and rhythm, no murmurs, rubs, or gallops. Good capillary refill all extremities. Right subclavian tunneled dialysis catheter present. Gastrointestinal: Abdomen is soft, nontender, non-distended, no masses, no rebound, no guarding, no peritoneal signs. Musculoskeletal: Normal active ROM of all extremities, atraumatic. Neurological: Alert, appropriate, and interactive. Non-focal neuro Skin: No rashes, good turgor, no nodules on palpation. Past medical history: End-stage renal disease work on dialysis, CAD, GI bleed, anemia, hypertension Past surgical history: Denies Family history: Denies Social history: No outpatient access to dialysis, works at [employer], lives in [place] Prior medical records reviewed including ED visit with Dr. Esteban Teran on . DIFFERENTIAL DIAGNOSIS: The differential diagnosis for the patient's dialysis treatment included but was not limited to end-stage renal disease. MEDICAL DECISION MAKING: The patient is an end-stage renal diseases 67 y/o male and is here for dialysis. Plan on labs, nephrology consult, and admission. Spoke with hospitalist service and Dr. Haji accepts admission of the patient. 1341: Consulted with Dr. Stanley, nephrology, he agrees to follow this patient during his admission. - Data Points Laboratory Results: Laboratory Results 03/04/17 11:58 03/04/17 11:58 03/04/17 03/04/17 03/04/17 11:58 11:58 11:58 WBC 5.52 10^3/uL 10^3/uL (3.80-9.50) RBC 2.61 10^6/uL L 10^6/uL (4.40-6.38) Hgb 8.2 g/dL L g/dL (13.7-17.5) Hct 25.0 % L % (40.0-51.0) MCV 95.8 fL fL (81.5-99.8) MCH 31.4 pg pg (27.9-34.1) MCHC 32.8 g/dL g/dL (32.4-36.7) RDW 15.3 % H % (11.5-15.2) Plt Count 140 10^3/uL L 10^3/uL (150-400) MPV 10.3 fL fL (8.7-11.7) Neut % (Auto) 65.7 % % (39.3-74.2) Lymph % (Auto) 15.9 % % (15.0-45.0) [place] % (Auto) 6.2 % % (4.5-13.0) Eos % (Auto) 11.1 % H % (0.6-7.6) Baso % (Auto) 0.9 % % (0.3-1.7) Nucleat RBC Rel Count 0.0 % % (0.0-0.2) Absolute Neuts (auto) 3.63 10^3/uL 10^3/uL (1.70-6.50) Absolute Lymphs (auto) 0.88 10^3/uL L 10^3/uL (1.00-3.00) Absolute Monos (auto) 0.34 10^3/uL 10^3/uL (0.30-0.80) Absolute Eos (auto) 0.61 10^3/uL H 10^3/uL (0.03-0.40) Absolute Basos (auto) 0.05 10^3/uL 10^3/uL (0.02-0.10) Absolute Nucleated RBC 0.00 10^3/uL 10^3/uL (0-0.01) Immature Gran % 0.2 % % (0.0-1.1) Immature Gran # 0.01 10^3/uL 10^3/uL (0.00-0.10) PT 14.2 SEC SEC (12.0-15.0) INR 1.11 (0.83-1.16) APTT 27.0 SEC SEC (23.0-38.0) Sodium 142 mEq/L mEq/L (134-144) Potassium 5.9 mEq/L H mEq/L (3.5-5.2) Chloride 102 mEq/L mEq/L (97-110) Carbon Dioxide 17 mEq/l L mEq/l (22-31) Anion Gap 23 mEq/L H mEq/L (8-16) BUN 116 mg/dL H* mg/dL (7-23) Creatinine 13.5 mg/dL H* mg/dL (0.7-1.3) Estimated GFR 4 Glucose 101 mg/dL H mg/dL (70-100) Calcium 8.7 mg/dL mg/dL (8.5-10.4) Total Bilirubin 0.6 mg/dL mg/dL (0.1-1.4) Conjugated Bilirubin 0.6 mg/dL H mg/dL (0.0-0.5) Unconjugated Bilirubin 0.0 mg/dL mg/dL (0.0-1.1) AST 13 IU/L L IU/L (17-59) ALT 23 IU/L IU/L (21-72) Alkaline Phosphatase 150 IU/L H IU/L (38-126) Total Protein 6.9 g/dL g/dL (6.3-8.2) Albumin 4.3 g/dL g/dL (3.5-5.0) Departure - Departure Disposition: [facility] Inpatient Acute Clinical Impression: End stage renal disease, Hyperkalemia, diminished renal excretion Condition: Fair Report Scribed for: Geremias Enamorado Report Scribed by: Romi Butterfield Date of Report: 03/04/17 Time of Report: 12:25
[2017-03-04 12:13] LABS: % IMMATURE GRANULYOCYTES 0.2 % (0.0-1.1); ABSOLUTE IMMATURE GRANULOCYTES 0.01 10^3/uL (0.00-0.10); ADD DIFF? NO; ADD MORPH? NO; ADD SCAN? NO; ATYPICAL LYMPHOCYTE FLAG 0 (0-99); FRAGMENT RBC FLAG 0 (0-99); HEMOGLOBIN 8.2 g/dL (13.7-17.5); LEFT SHIFT FLG 0 (0-99); LIPEMIA HEMOLYSIS FLAG 80 (0-99); MEAN CELL HEMOGLOBIN 31.4 pg (27.9-34.1); MEAN CELL HEMOGLOBIN CONCENTR. 32.8 g/dL (32.4-36.7); MEAN CELL VOLUME 95.8 fL (81.5-99.8); MEAN PLATELET VOLUME 10.3 fL (8.7-11.7); PLATELET CLUMPS FLAG 10 (0-99); PLATELET COUNT 140 10^3/uL (150-400); RED BLOOD CELL COUNT 2.61 10^6/uL (4.40-6.38); RED CELL DISTRIBUTION WIDTH 15.3 % (11.5-15.2)
[2017-03-04 12:22] LABS: INR 1.11 (0.83-1.16); PROTIME(PATIENT) 14.2 SEC (12.0-15.0)
[2017-03-04] MEDS ORDERED: CEFAZOLIN 2 GM/DEXTROSE/100 ML BAG IV ONE (12:26)
[2017-03-04] MEDS ORDERED: LIDOCAINE 1% 2 ML INJ ONE (12:26)
[2017-03-04] MEDS ORDERED: MUPIROCIN 2% 22 GM OINT ONE (12:26)
[2017-03-04 12:38] LABS: ALANINE AMINOTRANSFERASE 23 IU/L (21-72); ALBUMIN 4.3 g/dL (3.5-5.0); ALKALINE PHOSPHATASE 150 IU/L (38-126); ANION GAP 23 mEq/L (8-16); ASPARTATE AMINOTRANSFERASE 13 IU/L (17-59); BILIRUBIN,TOTAL 0.6 mg/dL (0.1-1.4); BILIRUBIN-CONJUGATED 0.6 mg/dL (0.0-0.5); CALCIUM 8.7 mg/dL (8.5-10.4); CARBON DIOXIDE 17 mEq/l (22-31); CHLORIDE 102 mEq/L (97-110); GLUCOSE 101 mg/dL (70-100); POTASSIUM 5.9 mEq/L (3.5-5.2); SODIUM 142 mEq/L (134-144); TOTAL PROTEIN 6.9 g/dL (6.3-8.2)
[2017-03-04 12:50] LABS: GLOMERULAR FILTRATION RATE 4
[2017-03-04 12:55] LABS: CREATININE 13.5 mg/dL (0.7-1.3)
[2017-03-04] MEDS ORDERED: ONDANSETRON DISINTEGRATING 4 MG TAB PO PRN (13:09)
[2017-03-04] MEDS ORDERED: ACETAMINOPHEN 325 MG TAB PO PRN (13:09)
--- NOTE | 2017-03-04 13:26 | PDGENHP ---
History and Physical History and Physical: HISTORY AND PHYSICAL CC:Loose stools, needing dialysis HISTORY: This patient is a 66-year-old man with end-stage renal disease on chronic dialysis. However he is unable to receive dialysis at the dialysis unit in the outpatient setting due to no workable insurance coverage. The patient comes in generally once a week here and we dialyze him here. The hospital is the only place he can have his dialysis. He was last treated here on 02/25-02/27. At this time he has no specific complaint other than minor ankle swelling. There is no abdominal pain, fevers or bleeding and he is eating well with no nausea. No shortness of breath or chest pain no palpitations. He has no trouble with his dialysis catheter. There are no fever symptoms. 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 Does not use tobacco or significant alcohol or street drugs MEDICATIONS: The patients list has been reconciled by our clinical pharmacist in the EMR. I have reviewed the list and ordered appropriate medicines. PHYSICAL EXAMINATION: Vital Signs: mild systolic hypertension otherwise stable without fever Senior Project Accountant: sinus rhythm Examination: General: alert, oriented, good mentation, relaxed Skin: warm, dry, good color, no rash His IJ catheter is in normal position no signs of infection HEENT: normal Neck: no mass or jvd Resps: relaxed Lungs: clear breath sounds Heart: regular, no murmur Abdomen: soft, nondistended, nontender, +BS, no mass Upper Extremities: normal Lower Extremities: there is very mild bilateral pitting edema at the ankles No Bleeding or bruising Neurologic: normal speech/language, normal social services assistant, no focal weakness IV site: looks normal LABORATORY DATA: Creat 13, K 5.9 ASSESSMENT: # End-stage renal disease requiring dialysis # Hyperkalemia, mild for him PLANS: The patient will be brought in on observation status dialysis today and in the am
[2017-03-04] MEDS ORDERED: NITROGLYCERIN 0.4 MG BTL SL PRN (17:45)
[2017-03-04] MEDS ORDERED: ALBUMIN 5% 250 ML BOTTLE IV ONE (17:51)
[2017-03-04] MEDS: CALCIUM CARBONATE 500 MG CHEWABLE TAB PO SCH (18:27)
[2017-03-04] MEDS ORDERED: HEPARIN 50,000 UNIT/10 ML VIAL ONE (23:37)
[2017-03-05 06:41] LABS: ANION GAP 15 mEq/L (8-16); CALCIUM 8.2 mg/dL (8.5-10.4); CARBON DIOXIDE 23 mEq/l (22-31); CHLORIDE 102 mEq/L (97-110); GLOMERULAR FILTRATION RATE 6; GLUCOSE 90 mg/dL (70-100); MAGNESIUM 1.6 mg/dL (1.6-2.3); POTASSIUM 4.8 mEq/L (3.5-5.2); SODIUM 140 mEq/L (134-144)
[2017-03-05 06:43] LABS: CREATININE 9.2 mg/dL (0.7-1.3)
[2017-03-05 07:08] VITALS: TEMP 98.2
[2017-03-05] MEDS ORDERED: PANTOPRAZOLE SODIUM 40 MG TAB PO SCH (09:00)
[2017-03-05] MEDS ORDERED: SODIUM BICARBONATE 650 MG TAB PO SCH (09:00)
[2017-03-05] MEDS ORDERED: NEPHROVITE FOLIC ACID/VIT B&C 1 TAB PO SCH (09:00)
[2017-03-05] MEDS ORDERED: CHOLECALCIFEROL VIT D3 50,000 UNIT CAP PO SCH (09:00)
[2017-03-05] MEDS ORDERED: ATORVASTATIN CALCIUM 40 MG TAB PO SCH (09:00)
--- NOTE | 2017-03-05 09:52 | HOSPPROG ---
Hospitalist Progress Note Assessment/Plan: 67 yo m w esrd home after hd see dc summary Subjective: seen in HD. labs improving. not dyspneic Objective: Vital Signs Temp Pulse Resp BP Pulse Ox 36.8 C 60 14 159/74 H 91 L 03/05/17 07:06 03/05/17 07:06 03/05/17 07:06 03/05/17 07:06 03/05/17 07:06 Laboratory Results 03/05/17 05:23 03/04/17 03/05/17 03/06/17 05:59 05:59 05:59 Intake Total 220 Balance 220 PT 14.2 SEC (12.0-15.0) 03/04/17 11:58 INR 1.11 (0.83-1.16) 03/04/17 11:58 - Physical Exam Constitutional: no apparent distress, appears nourished Eyes: PERRL, anicteric sclera Ears, Nose, Mouth, Throat: moist mucous membranes, hearing normal Cardiovascular: regular rate and rhythym, no murmur, rub, or gallop Respiratory: no respiratory distress, no rales or rhonchi Gastrointestinal: normoactive bowel sounds, soft, non-tender abdomen Genitourinary: no bladder fullness, No godoy in urethra Skin: warm, normal color Musculoskeletal: full muscle strength, other, No generalized weakness (tr edema) Neurologic: AAOx3, sensation intact bilaterally Psychiatric: interacting appropriately ICD10 Worksheet Patient Problems: Problems Problem Status Onset End stage renal disease Acute Hyperkalemia, diminished renal excretion Acute Abdominal pain Acute Acute renal failure Acute Acute upper GI bleed Acute Anemia Acute Anemia associated with acute blood loss Acute Anemia, chronic disease Acute Chronic renal failure Acute Diarrhea Acute ESRD (end stage renal disease) Acute End stage renal disease Acute End stage renal disease Acute Hyperkalemia Acute Hyperkalemia Acute Hyperkalemia Acute Hyperkalemia Acute Hyperkalemia Acute Hyperkalemia Acute Hyperkalemia Acute Hyperkalemia Acute Hyperkalemia Acute Hyperkalemia Acute Hypertension Acute Hypocalcemia Acute Kidney failure Acute Kidney failure Acute Kidney failure Acute Metabolic acidosis Acute Renal failure Acute Shingles (herpes zoster) polyneuropathy Acute Uremia Acute Uremia Acute
--- NOTE | 2017-03-05 10:08 | SOAPPROG ---
SOAP Progress Note Assessment/Plan: Assessment: 1. ESRD without benefits Getting second dialysis today. Tolerating well. 2. HTN Will increase UF on dialysis 3. Will look at getting a fistula placed Likely DC today Plan: 03/05/17 10:05 Subjective: Seen on dialysis, doing fine Objective: Vital Signs Temp Pulse Resp BP Pulse Ox 36.8 C 60 14 159/74 H 91 L 03/05/17 07:06 03/05/17 07:06 03/05/17 07:06 03/05/17 07:06 03/05/17 07:06 Laboratory Results 03/05/17 05:23 03/04/17 03/05/17 03/06/17 05:59 05:59 05:59 Intake Total 220 Balance 220 PT 14.2 SEC (12.0-15.0) 03/04/17 11:58 INR 1.11 (0.83-1.16) 03/04/17 11:58 Physical Exam - Physical Exam General Appearance: no apparent distress Neck: other (Catheter site ok) Respiratory: lungs clear Cardiac/Chest: regular rate, rhythm Extremities: pedal edema Neuro/Psych: no motor/sensory deficits ICD10 Worksheet Patient Problems: Problems Problem Status Onset End stage renal disease Acute Hyperkalemia, diminished renal excretion Acute Abdominal pain Acute Acute renal failure Acute Acute upper GI bleed Acute Anemia Acute Anemia associated with acute blood loss Acute Anemia, chronic disease Acute Chronic renal failure Acute Diarrhea Acute ESRD (end stage renal disease) Acute End stage renal disease Acute End stage renal disease Acute Hyperkalemia Acute Hyperkalemia Acute Hyperkalemia Acute Hyperkalemia Acute Hyperkalemia Acute Hyperkalemia Acute Hyperkalemia Acute Hyperkalemia Acute Hyperkalemia Acute Hyperkalemia Acute Hypertension Acute Hypocalcemia Acute Kidney failure Acute Kidney failure Acute Kidney failure Acute Metabolic acidosis Acute Renal failure Acute Shingles (herpes zoster) polyneuropathy Acute Uremia Acute Uremia Acute
--- NOTE | 2017-03-05 10:12 | GDS ---
[f rep st] DISCHARGE SUMMARY DISCHARGE DIAGNOSES: 1. End-stage renal disease, with no access to dialysis. 2. Hyperkalemia. 3. Metabolic acidosis. 4. Anemia of chronic renal disease. 5. History of coronary artery disease. HOSPITAL COURSE: The patient was admitted with need for dialysis, where he typically presents with diarrhea, and found to be hyperkalemic and acidemic. He received dialysis last evening and this mor angel, with labs trending toward normal this morning. He is discharged home on unchanged outpatient medication regimen. /[id number]/MODL
[2017-03-05 11:47] VITALS: BP 163/73; PULSE 63; RESP 16; O2SAT 97
[2017-03-05] MEDS: CALCIUM CARBONATE 500 MG CHEWABLE TAB PO SCH ×2 (11:47→11:48)
--- NOTE | 2017-03-05 11:56 | ASMTCMCOM ---
CM Note CM Note Notes: Pt admitted for emergency dialysis; anticipate home independently when medically stable; CM avail. should needs change D/c'ed home today. Took bus w/ his own bus pass. Date Signed: 03/05/2017 10:14 AM Electronically Signed By:Jacqueline Coker
--- NOTE | 2017-03-06 09:52 | ASDISCHSUM ---
Discharge Information Plan Status:Home with No Needs Medically Cleared to Leave: Discharge Date:03/05/2017 03:34 PM CM D/C Disposition:Home, Routine, Self-Care ADT D/C Disposition:Home, Routine, Self-Care Projected Discharge Date:03/05/2017 03:34 PM Transportation at D/C:Family Discharge Delay Reason: Follow-Up Date:03/05/2017 03:34 PM Discharge Slot: Final Diagnosis: Placement Information Patient Contact Information Contact Name:OTFINOSA Relationship:Son Address: Work Phone: [facility] Phone: State/[place] Code: Email: Financial Information Financial Class:Self-Pay Primary Plan Desc:WE CARE Primary Plan Number:99 Secondary Plan Desc: Secondary Plan Number: Assessment Information [facility] CM Progress Note CM Note CM Note Notes: Pt admitted for emergency dialysis; anticipate home independently when medically stable; CM avail. should needs change D/c'ed home today. Took bus w/ his own bus pass. Date Signed: 03/05/2017 10:14 AM Electronically Signed By:Jacqueline Coker Intervention Information
== END 2017-03-05 15:34 | disposition home or self-care (01) ==
LOC: F2W 14:06 → F2N 17:44 → F2W 17:51
PROVIDERS: ADMIT Internal Medicine; ATTEND Internal Medicine
PROC: 5A1D00Z (ICD-10-PCS; principal; 2017-03-04)
CPT/HCPCS: G0378; J0690; J1644; P9041

== ENCOUNTER 2017-03-11 11:06 | Inpatient (IN) | payer OTHER ==
--- NOTE | 2017-03-11 11:26 | EDPHY ---
H & P Stated Complaint: HERE FOR DIALYSIS Time Seen by Provider: 03/11/17 11:26 - Personal History Current Tetanus Diphtheria and Acellular Pertussis (TDAP): Yes Tetanus Vaccine Date: 2010 - Medical/Surgical History Hx Asthma: No Hx Chronic Respiratory Disease: No Hx Diabetes: No Hx Cardiac Disease: Yes Hx Renal Disease: Yes Hx Cirrhosis: No Hx Alcoholism: No Hx HIV/AIDS: No Hx Splenectomy or Spleen Trauma: No Other PMH: gout, htn, hernia, anemia, cad, heart stent, esophagitis, GIB on plavix, ESRD, dialysis, shingles, chronic loose stools - Social History Smoking Status: Former smoker Constitutional: Initial Vital Signs Temperature (C) 36.8 C 03/11/17 11:17 Heart Rate 64 03/11/17 11:17 Respiratory Rate 16 03/11/17 11:17 Blood Pressure 151/95 H 03/11/17 11:17 O2 Sat (%) 99 03/11/17 11:17 Allergies/Adverse Reactions: No Known Allergies Allergy (Verified 03/11/17 11:19) Home Medications: Medication Instructions Recorded Atorvastatin Calcium [Lipitor 40 80 mg PO DAILY 10/30/16 mg (*)] Nitroglycerin [Nitrostat 0.4 mg 0.4 mg SL AD PRN 10/30/16 (*)] Sodium Bicarbonate [Na Bicarb] 1,300 mg PO DAILY 10/30/16 Calcium Carbonate [Tums 500MG (*)] 500 mg PO TIDMEAL #90 tab.chew 11/01/16 Pantoprazole Sodium [Protonix 40mg 40 mg PO DAILY 12/03/16 (*)] Folic Acid/Vit B Com W/C 1 each PO DAILY 01/07/17 [Nephro-Peyton Rx] Cholecalciferol Vit D3 [Vitamin D3 50,000 unit PO TU 01/21/17 (*)] amLODIPine BESYLATE [Norvasc 10 mg 10 mg PO DAILY #30 tab 02/20/17 (*)] hydrALAZINE [Apresoline 50 mg (*)] 50 mg PO TID #90 tab 02/27/17 Medical Decision Making ED Course/Re-evaluation: CHIEF COMPLAINT: HISTORY OF PRESENT ILLNESS: This is a 67 y/o male with end-stage renal disease on chronic dialysis. He is unable to receive outpatient dialysis due to lack of insurance coverage, so he presents here consistently about once per week for dialysis. This is his 39th visit this year for dialysis. He denies any new symptoms. His last dialysis was on 03/04/17, 6 days ago. No chest pain, dyspnea, vomiting, abdominal pain, fever. REVIEW OF SYSTEMS: A 10 point review of systems was performed and is negative with the exception of the elements mentioned in the history of present illness. PHYSICAL EXAM: HR, BP, O2 Sat, RR. Temp noted General Appearance: Sleeping, appropriate, and non-toxic appearing. Head: Atraumatic without scalp tenderness or obvious injury Eyes: Pupils equal, round, reactive to light and accommodation, EOMI, no trauma , no injection. Nose: Atraumatic, no rhinorrhea, clear. Throat: There is no erythema or exudates, no lesions, normal tonsils, mucus membranes moist. Neck: Supple Respiratory: No retractions, no distress, no wheezes, and no accessory muscle use. Lungs are clear to auscultation bilaterally. Cardiovascular: Regular rate and rhythm, no murmurs, rubs, or gallops. Good capillary refill all extremities. Gastrointestinal: Abdomen is soft, nontender, non-distended, no masses, no rebound, no guarding, no peritoneal signs. Musculoskeletal: Normal active ROM of all extremities, atraumatic. Neurological: Alert, appropriate, and interactive. Nonfocal neuro exam. Skin: No rashes, good turgor, no nodules on palpation. Past medical history: End-stage renal disease on dialysis, CAD, GI bleed when on Plavix, esophageal reflux, anemia related to chronic kidney disease, esophagitis, hypertension Past surgical history: tunneled right dialysis catheter in jugular vein Family history: CAD Social history: From [place]. Employed. No tobacco or alcohol. Prior medical records reviewed including admission 03/04/17 for dialysis. DIFFERENTIAL DIAGNOSIS: The differential diagnosis for the patient's presentation included but was not limited to end-stage renal failure, chronic kidney disease, due for dialysis. MEDICAL DECISION MAKING: This is a 67 y/o male with end-stage renal disease presenting for his weekly dialysis admission. He denies any new complaints. Exam is unremarkable. His labs show hyperkalemia with potassium of 5.9 and a creatinine of 15.2. Hospitalist and building tech paged. 1220: Spoke with Dr. Conway, hospitalist. He accepts admission. 1227: Consulted with Dr. Vallejo, nephrology. - Data Points Laboratory Results: Laboratory Results 03/11/17 11:39 03/11/17 11:39 03/11/17 03/11/17 03/11/17 11:39 11:39 11:39 WBC 5.48 10^3/uL 10^3/uL (3.80-9.50) RBC 2.63 10^6/uL L 10^6/uL (4.40-6.38) Hgb 8.2 g/dL L g/dL (13.7-17.5) Hct 25.3 % L % (40.0-51.0) MCV 96.2 fL fL (81.5-99.8) MCH 31.2 pg pg (27.9-34.1) MCHC 32.4 g/dL g/dL (32.4-36.7) RDW 15.3 % H % (11.5-15.2) Plt Count 115 10^3/uL L 10^3/uL (150-400) MPV 10.3 fL fL (8.7-11.7) Neut % (Auto) 62.7 % % (39.3-74.2) Lymph % (Auto) 17.0 % % (15.0-45.0) [place] % (Auto) 6.2 % % (4.5-13.0) Eos % (Auto) 13.0 % H % (0.6-7.6) Baso % (Auto) 0.9 % % (0.3-1.7) Nucleat RBC Rel Count 0.0 % % (0.0-0.2) Absolute Neuts (auto) 3.44 10^3/uL 10^3/uL (1.70-6.50) Absolute Lymphs (auto) 0.93 10^3/uL L 10^3/uL (1.00-3.00) Absolute Monos (auto) 0.34 10^3/uL 10^3/uL (0.30-0.80) Absolute Eos (auto) 0.71 10^3/uL H 10^3/uL (0.03-0.40) Absolute Basos (auto) 0.05 10^3/uL 10^3/uL (0.02-0.10) Absolute Nucleated RBC 0.00 10^3/uL 10^3/uL (0-0.01) Immature Gran % 0.2 % % (0.0-1.1) Immature Gran # 0.01 10^3/uL 10^3/uL (0.00-0.10) PT 14.4 SEC SEC (12.0-15.0) INR 1.13 (0.83-1.16) APTT 34.5 SEC SEC (23.0-38.0) Sodium 142 mEq/L mEq/L (134-144) Potassium 5.9 mEq/L H mEq/L (3.5-5.2) Chloride 102 mEq/L mEq/L (97-110) Carbon Dioxide 16 mEq/l L mEq/l (22-31) Anion Gap 24 mEq/L H mEq/L (8-16) BUN Pending Creatinine Pending Estimated GFR Pending Glucose 102 mg/dL H mg/dL (70-100) Calcium 7.7 mg/dL L mg/dL (8.5-10.4) Total Bilirubin 0.7 mg/dL mg/dL (0.1-1.4) Conjugated Bilirubin 0.7 mg/dL H mg/dL (0.0-0.5) Unconjugated Bilirubin 0.0 mg/dL mg/dL (0.0-1.1) AST 10 IU/L L IU/L (17-59) ALT 26 IU/L IU/L (21-72) Alkaline Phosphatase 171 IU/L H IU/L (38-126) Total Protein 6.9 g/dL g/dL (6.3-8.2) Albumin 4.5 g/dL g/dL (3.5-5.0) Departure - Departure Disposition: [facility] Inpatient Acute Clinical Impression: End stage renal disease, Hyperkalemia Condition: Fair Referrals: Jacqueline Rodriges MD [Primary Care Provider] - As per Instructions Report Scribed for: Geremias Enamorado Report Scribed by: Landy Fontaine Date of Report: 03/11/17 Time of Report: 12:20
[2017-03-11 11:57] LABS: % IMMATURE GRANULYOCYTES 0.2 % (0.0-1.1); ABSOLUTE IMMATURE GRANULOCYTES 0.01 10^3/uL (0.00-0.10); ADD DIFF? NO; ADD MORPH? NO; ADD SCAN? NO; ATYPICAL LYMPHOCYTE FLAG 0 (0-99); FRAGMENT RBC FLAG 0 (0-99); HEMATOCRIT 25.3 % (40.0-51.0); HEMOGLOBIN 8.2 g/dL (13.7-17.5); LEFT SHIFT FLG 0 (0-99); LIPEMIA HEMOLYSIS FLAG 80 (0-99); MEAN CELL HEMOGLOBIN 31.2 pg (27.9-34.1); MEAN CELL HEMOGLOBIN CONCENTR. 32.4 g/dL (32.4-36.7); MEAN CELL VOLUME 96.2 fL (81.5-99.8); MEAN PLATELET VOLUME 10.3 fL (8.7-11.7); PLATELET CLUMPS FLAG 10 (0-99); PLATELET COUNT 115 10^3/uL (150-400); RED BLOOD CELL COUNT 2.63 10^6/uL (4.40-6.38); RED CELL DISTRIBUTION WIDTH 15.3 % (11.5-15.2)
[2017-03-11 12:07] LABS: INR 1.13 (0.83-1.16); PROTIME(PATIENT) 14.4 SEC (12.0-15.0)
[2017-03-11 12:08] LABS: APTT 34.5 SEC (23.0-38.0)
[2017-03-11 12:10] LABS: ALANINE AMINOTRANSFERASE 26 IU/L (21-72); ALBUMIN 4.5 g/dL (3.5-5.0); ALKALINE PHOSPHATASE 171 IU/L (38-126); ANION GAP 24 mEq/L (8-16); ASPARTATE AMINOTRANSFERASE 10 IU/L (17-59); BILIRUBIN,TOTAL 0.7 mg/dL (0.1-1.4); BILIRUBIN-CONJUGATED 0.7 mg/dL (0.0-0.5); CALCIUM 7.7 mg/dL (8.5-10.4); CARBON DIOXIDE 16 mEq/l (22-31); CHLORIDE 102 mEq/L (97-110); GLUCOSE 102 mg/dL (70-100); POTASSIUM 5.9 mEq/L (3.5-5.2); SODIUM 142 mEq/L (134-144); TOTAL PROTEIN 6.9 g/dL (6.3-8.2)
--- NOTE | 2017-03-11 12:19 | EDPHY ---
H & P Stated Complaint: HERE FOR DIALYSIS Time Seen by Provider: 03/11/17 11:26 - Personal History Current Tetanus Diphtheria and Acellular Pertussis (TDAP): Yes Tetanus Vaccine Date: 2010 - Medical/Surgical History Hx Asthma: No Hx Chronic Respiratory Disease: No Hx Diabetes: No Hx Cardiac Disease: Yes Hx Renal Disease: Yes Hx Cirrhosis: No Hx Alcoholism: No Hx HIV/AIDS: No Hx Splenectomy or Spleen Trauma: No Other PMH: gout, htn, hernia, anemia, cad, heart stent, esophagitis, GIB on plavix, ESRD, dialysis, shingles, chronic loose stools - Social History Smoking Status: Former smoker Constitutional: Initial Vital Signs Temperature (C) 36.8 C 03/11/17 11:17 Heart Rate 64 03/11/17 11:17 Respiratory Rate 16 03/11/17 11:17 Blood Pressure 151/95 H 03/11/17 11:17 O2 Sat (%) 99 03/11/17 11:17 Allergies/Adverse Reactions: No Known Allergies Allergy (Verified 03/11/17 11:19) Home Medications: Medication Instructions Recorded Atorvastatin Calcium [Lipitor 40 80 mg PO DAILY 10/30/16 mg (*)] Nitroglycerin [Nitrostat 0.4 mg 0.4 mg SL AD PRN 10/30/16 (*)] Sodium Bicarbonate [Na Bicarb] 1,300 mg PO DAILY 10/30/16 Calcium Carbonate [Tums 500MG (*)] 500 mg PO TIDMEAL #90 tab.chew 11/01/16 Pantoprazole Sodium [Protonix 40mg 40 mg PO DAILY 12/03/16 (*)] Folic Acid/Vit B Com W/C 1 each PO DAILY 01/07/17 [Nephro-[facility] Rx] Cholecalciferol Vit D3 [Vitamin D3 50,000 unit PO TU 01/21/17 (*)] amLODIPine BESYLATE [Norvasc 10 mg 10 mg PO DAILY #30 tab 02/20/17 (*)] hydrALAZINE [Apresoline 50 mg (*)] 50 mg PO TID #90 tab 02/27/17 Medical Decision Making ED Course/Re-evaluation: CHIEF COMPLAINT: HISTORY OF PRESENT ILLNESS: must have 4 elements: Location, Quality, Severity, Duration, Timing, Context, Modifying Factors, Associated Signs and Symptoms REVIEW OF SYSTEMS: A 10 point review of systems was performed and is negative with the exception of the elements mentioned in the history of present illness. PHYSICAL EXAM: General Appearance: Alert, well hydrated, appropriate, and non-toxic appearing. Head: Atraumatic without scalp tenderness or obvious injury Eyes: Pupils equal, round, reactive to light and accommodation, EOMI, no trauma , no injection. Ears: Clear bilaterally, no perforation, normal landmarks Nose: Atraumatic, no rhinorrhea, clear. Throat: There is no erythema or exudates, no lesions, normal tonsils, mucus membranes moist. Neck: Supple, 2+ carotid upstroke, non-tender, no lymphadenopathy. Respiratory: No retractions, no distress, no wheezes, and no accessory muscle use. Lungs are clear to auscultation bilaterally. Cardiovascular: Regular rate and rhythm, no murmurs, rubs, or gallops. Bilateral carotid, radial, dorsalis pedis, and posterior tibial pulses intact. Good capillary refill all extremities. Gastrointestinal: Abdomen is soft, non-tender, non-distended, no masses, no rebound, no guarding, no peritoneal signs. Musculoskeletal: Normal active ROM of all extremities, atraumatic. Neurological: Alert, appropriate, and interactive. The patient has normal DTRs and non-focal cranial nerves, motor, sensory, and cerebellar exam. Skin: No rashes, good turgor, no nodules on palpation. PAST MEDICAL HISTORY: PAST SURGICAL HISTORY: SOCIAL HISTORY: DIAGNOSTICS/PROCEDURES/CRITICAL CARE TIME: DIFFERENTIAL DIAGNOSIS: MEDICAL DECISION MAKING: - Data Points Laboratory Results: Laboratory Results 03/11/17 11:39 03/11/17 11:39 03/11/17 03/11/17 03/11/17 11:39 11:39 11:39 WBC 5.48 10^3/uL 10^3/uL (3.80-9.50) RBC 2.63 10^6/uL L 10^6/uL (4.40-6.38) Hgb 8.2 g/dL L g/dL (13.7-17.5) Hct 25.3 % L % (40.0-51.0) MCV 96.2 fL fL (81.5-99.8) MCH 31.2 pg pg (27.9-34.1) MCHC 32.4 g/dL g/dL (32.4-36.7) RDW 15.3 % H % (11.5-15.2) Plt Count 115 10^3/uL L 10^3/uL (150-400) MPV 10.3 fL fL (8.7-11.7) Neut % (Auto) 62.7 % % (39.3-74.2) Lymph % (Auto) 17.0 % % (15.0-45.0) Travis % (Auto) 6.2 % % (4.5-13.0) Eos % (Auto) 13.0 % H % (0.6-7.6) Baso % (Auto) 0.9 % % (0.3-1.7) Nucleat RBC Rel Count 0.0 % % (0.0-0.2) Absolute Neuts (auto) 3.44 10^3/uL 10^3/uL (1.70-6.50) Absolute Lymphs (auto) 0.93 10^3/uL L 10^3/uL (1.00-3.00) Absolute Monos (auto) 0.34 10^3/uL 10^3/uL (0.30-0.80) Absolute Eos (auto) 0.71 10^3/uL H 10^3/uL (0.03-0.40) Absolute Basos (auto) 0.05 10^3/uL 10^3/uL (0.02-0.10) Absolute Nucleated RBC 0.00 10^3/uL 10^3/uL (0-0.01) Immature Gran % 0.2 % % (0.0-1.1) Immature Gran # 0.01 10^3/uL 10^3/uL (0.00-0.10) PT 14.4 SEC SEC (12.0-15.0) INR 1.13 (0.83-1.16) APTT 34.5 SEC SEC (23.0-38.0) Sodium 142 mEq/L mEq/L (134-144) Potassium 5.9 mEq/L H mEq/L (3.5-5.2) Chloride 102 mEq/L mEq/L (97-110) Carbon Dioxide 16 mEq/l L mEq/l (22-31) Anion Gap 24 mEq/L H mEq/L (8-16) BUN Pending Creatinine Pending Estimated GFR Pending Glucose 102 mg/dL H mg/dL (70-100) Calcium 7.7 mg/dL L mg/dL (8.5-10.4) Total Bilirubin 0.7 mg/dL mg/dL (0.1-1.4) Conjugated Bilirubin 0.7 mg/dL H mg/dL (0.0-0.5) Unconjugated Bilirubin 0.0 mg/dL mg/dL (0.0-1.1) AST 10 IU/L L IU/L (17-59) ALT 26 IU/L IU/L (21-72) Alkaline Phosphatase 171 IU/L H IU/L (38-126) Total Protein 6.9 g/dL g/dL (6.3-8.2) Albumin 4.5 g/dL g/dL (3.5-5.0) Departure - Departure Disposition: [facility] Inpatient Acute Clinical Impression: End stage renal disease Condition: Fair Referrals: Jacqueline Rodriges MD [Primary Care Provider] - As per Instructions Report Scribed for: Geremias Enamorado Report Scribed by: Landy Fontaine Date of Report: 03/11/17 Time of Report: 12:19
[2017-03-11 12:21] LABS: GLOMERULAR FILTRATION RATE 3
[2017-03-11 12:22] LABS: CREATININE 15.2 mg/dL (0.7-1.3)
[2017-03-11] MEDS ORDERED: ACETAMINOPHEN 325 MG TAB PO PRN (12:34)
[2017-03-11] MEDS ORDERED: TEMAZEPAM 15 MG CAP PO PRN (12:34)
[2017-03-11] MEDS ORDERED: ONDANSETRON 4 MG/2 ML VIAL IVP PRN (12:34)
[2017-03-11] MEDS ORDERED: ONDANSETRON DISINTEGRATING 4 MG TAB PO PRN (12:34)
[2017-03-11] MEDS ORDERED: oxyCODONE IR 5 MG TAB PO PRN (12:34)
[2017-03-11] MEDS ORDERED: INSULIN REGULAR HUMAN 100 UNIT/ML IVP ONE ×2 (12:38→15:15)
[2017-03-11] MEDS ORDERED: CALCIUM GLUCONATE 50 ML IV ONE (12:38)
[2017-03-11] MEDS ORDERED: D50W 25 GM/50 ML SYR IVP ONE (12:39)
[2017-03-11] MEDS ORDERED: NITROGLYCERIN 0.4 MG BTL SL PRN (13:04)
--- NOTE | 2017-03-11 13:09 | GHP ---
[f rep st] HISTORY AND PHYSICAL DATE OF ADMISSION: 03/11/2017 CHIEF COMPLAINT: Not feeling well. HISTORY OF PRESENT ILLNESS: This is a 67-year-old male with end-stage renal disease, undocumented, who presents not feeling well. His last dialysis was 6 days ago. He notes he had some pain in his knee a few days ago that has now resolved. He complains of some diarrhea. He has no shortness of b reath. He has had no palpitations or chest pain. His right tunneled catheter has been functioning well. PAST MEDICAL/SURGICAL HISTORY: 1. End-stage renal disease, on dialysis. 2. Coronary artery disease. 3. GI bleed that occurred in the setting of Plavix. 4. Esophageal reflux. 5. Anemia of chronic disease. 6. Esophagitis. 7. Hypertension. 8. Tunneled right dialysis catheter. MEDICATIONS: Please see medication reconciliation. SOCIAL HISTORY: He has been working here for many years. 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 He does not smoke to [employer] or use any other drugs or alcohol. FAMILY HISTORY: Notable for coronary artery disease and stroke. REVIEW OF SYSTEMS: A 10-point review of systems is conducted, and is negative except per HPI. PHYSICAL EXAM: VITAL SIGNS: Blood pressure is 151/95, heart rate 64, respiration rate 16, saturati ng 99% on room air, temperature 36.8. GENERAL: The patient is a pleasant man, who resting comforta rylie in bed, in no acute distress. HEENT: Shows to be normocephalic. CARDIOVASCULAR: Regular rate and rhythm. No murmurs, rubs, or gallops. CHEST: Shows him to have a right tunnelled catheter, w hich has no surrounding erythema. PULMONARY: Lungs clear to auscultation bilaterally. He is not i n any respiratory distress. ABDOMEN: Soft, nontender, nondistended. SKIN: No rash. : Singh. NEUROLOGIC: Shows him to be alert and oriented x3. He is moving all extremities. PSYCHIATRIC: S hows normal mood and affect. LABORATORY DATA: Hemoglobin is 8.2, platelets are 115, INR is 1.13, potassium is 5.9, BUN 120, crea tinine 15, AST is 10. DATA: 1. I discussed this with Dr. Enamorado. 2. I reviewed his old chart. IMPRESSION AND PLAN: A 67-year-old man needing emergent dialysis. 1. Emergent dialysis with hyperkalemia: We will give him calcium gluconate, low-dose insulin, and D50. Renal has been contacted, and will dialyze him today. He is currently having no arrhythmias. He will be monitored on telemetry. 2. Anemia due to end-stage renal disease. 3. High-risk diagnosis given hyperkalemia. /[id number]/MODL
[2017-03-11] MEDS ORDERED: D10W 250 ML ONCE IV ONE ×2 (14:51→15:15)
[2017-03-11] MEDS ORDERED: MANNITOL 20% 250 ML IV PRN (15:45)
[2017-03-11] MEDS ORDERED: MANNITOL 20% 62.5 ML IV PRN (15:47)
--- NOTE | 2017-03-11 18:51 | SOAPPROG ---
SOAP Progress Note Assessment/Plan: Assessment: ESRD (no access to outpt HD unit given insurance status) -HD tonight and again tomorrow for hyperK/uremia -mannitol given as at risk for dialysis equilibrium (has had symptoms in past) Hyperkalemia -HD now -renal diet when taking po Anemia CKD -epo 10,000 units sq x 1 Mbd CKD -renal diet -Tums binder Metabolic Acidosis -will improve with HD Elba Burch MD [facility] pager [phone] 03/11/17 19:25 Subjective: 67 y/o man with h/o HTN, ESRD with no access to outpt HD unit presents with weakness, nausea, diarrhea. K 5.9. Last HD a week ago here. Objective: Vital Signs Temp Pulse Resp BP Pulse Ox 36.4 C 67 18 154/81 H 94 03/11/17 13:46 03/11/17 13:46 03/11/17 13:46 03/11/17 13:46 03/11/17 13:46 PT 14.4 SEC (12.0-15.0) 03/11/17 11:39 INR 1.13 (0.83-1.16) 03/11/17 11:39 Physical Exam - Physical Exam General Appearance: alert, no apparent distress Neck: supple, other (RIJ TDC c/d/i) Respiratory: lungs clear Cardiac/Chest: regular rate, rhythm, other (no rub) Abdomen: normal bowel sounds, non-tender, soft Extremities: other (+edema bilat LE) Neuro/Psych: alert, oriented x 3 ICD10 Worksheet Patient Problems: Problems Problem Status Onset End stage renal disease Acute Hyperkalemia Acute Abdominal pain Acute Acute renal failure Acute Acute upper GI bleed Acute Anemia Acute Anemia associated with acute blood loss Acute Anemia, chronic disease Acute Chronic renal failure Acute Diarrhea Acute ESRD (end stage renal disease) Acute End stage renal disease Acute End stage renal disease Acute Hyperkalemia Acute Hyperkalemia Acute Hyperkalemia Acute Hyperkalemia Acute Hyperkalemia Acute Hyperkalemia Acute Hyperkalemia Acute Hyperkalemia Acute Hyperkalemia Acute Hyperkalemia, diminished renal excretion Acute Hypertension Acute Hypocalcemia Acute Kidney failure Acute Kidney failure Acute Kidney failure Acute Metabolic acidosis Acute Renal failure Acute Shingles (herpes zoster) polyneuropathy Acute Uremia Acute Uremia Acute
[2017-03-11] MEDS ORDERED: HEPARIN 50,000 UNIT/10 ML VIAL ONE (20:00)
[2017-03-11] MEDS: CALCIUM CARBONATE 500 MG CHEWABLE TAB PO SCH (20:54)
[2017-03-12 04:38] LABS: % IMMATURE GRANULYOCYTES 0.3 % (0.0-1.1); ABSOLUTE IMMATURE GRANULOCYTES 0.01 10^3/uL (0.00-0.10); ADD DIFF? NO; ADD MORPH? NO; ADD SCAN? NO; ATYPICAL LYMPHOCYTE FLAG 0 (0-99); FRAGMENT RBC FLAG 0 (0-99); HEMATOCRIT 22.9 % (40.0-51.0); HEMOGLOBIN 7.6 g/dL (13.7-17.5); LEFT SHIFT FLG 0 (0-99); LIPEMIA HEMOLYSIS FLAG 80 (0-99); MEAN CELL HEMOGLOBIN CONCENTR. 33.2 g/dL (32.4-36.7); MEAN CELL VOLUME 93.5 fL (81.5-99.8); MEAN PLATELET VOLUME 9.5 fL (8.7-11.7); PLATELET CLUMPS FLAG 0 (0-99); PLATELET COUNT 100 10^3/uL (150-400); RED BLOOD CELL COUNT 2.45 10^6/uL (4.40-6.38); RED CELL DISTRIBUTION WIDTH 14.9 % (11.5-15.2)
[2017-03-12 04:52] LABS: ANION GAP 16 mEq/L (8-16); CALCIUM 7.9 mg/dL (8.5-10.4); CARBON DIOXIDE 25 mEq/l (22-31); CHLORIDE 99 mEq/L (97-110); GLOMERULAR FILTRATION RATE 6; GLUCOSE 89 mg/dL (70-100); POTASSIUM 4.8 mEq/L (3.5-5.2); SODIUM 140 mEq/L (134-144)
[2017-03-12 05:15] LABS: CREATININE 8.4 mg/dL (0.7-1.3)
[2017-03-12 07:09] VITALS: O2SAT 92
[2017-03-12] MEDS: CALCIUM CARBONATE 500 MG CHEWABLE TAB PO SCH ×3 (08:33→19:23)
[2017-03-12] MEDS ORDERED: EPOETIN ALFA 10,000 UNIT/ML VIAL SC SCH (09:00)
[2017-03-12] MEDS ORDERED: PANTOPRAZOLE SODIUM 40 MG TAB PO SCH (09:00)
[2017-03-12] MEDS ORDERED: SODIUM BICARBONATE 650 MG TAB PO SCH (09:00)
[2017-03-12] MEDS ORDERED: ATORVASTATIN CALCIUM 40 MG TAB PO SCH (09:00)
[2017-03-12] MEDS ORDERED: NEPHROVITE FOLIC ACID/VIT B&C 1 TAB PO SCH (09:00)
--- NOTE | 2017-03-12 11:45 | SOAPPROG ---
JACQUELINE Progress Note Assessment/Plan: Assessment:Plan: ESRD-stable on Hd -volume status okay -lytes better -symptoms resolved -Hd again tomorrow if he remains inpatient Hyperkalemia-resolved Access-stable Disposition-pending 03/12/17 11:43 Subjective: stable on dialysis Objective: Vital Signs Temp Pulse Resp BP Pulse Ox 36.6 C 57 L 12 186/85 H 92 03/12/17 07:07 03/12/17 07:07 03/12/17 07:07 03/12/17 07:07 03/12/17 07:07 Laboratory Results 03/12/17 04:19 03/12/17 04:19 03/11/17 03/12/17 03/13/17 05:59 05:59 05:59 Intake Total 200 Output Total 1000 Balance -800 PT 14.4 SEC (12.0-15.0) 03/11/17 11:39 INR 1.13 (0.83-1.16) 03/11/17 11:39 Physical Exam - Physical Exam General Appearance: WD/WN, alert, no apparent distress, thin EENT: normal ENT inspection Neck: normal inspection Respiratory: lungs clear, normal breath sounds, decreased breath sounds (at bases) Cardiac/Chest: regular rate, rhythm, No diastolic murmur, No systolic murmur Abdomen: normal bowel sounds, non-tender, soft, No hepatomegaly, No splenomegaly Skin: normal color, warm/dry Extremities: swelling Neuro/Psych: no motor/sensory deficits, alert, normal mood/affect, oriented x 3 ICD10 Worksheet Patient Problems: Problems Problem Status Onset End stage renal disease Acute Hyperkalemia Acute Abdominal pain Acute Acute renal failure Acute Acute upper GI bleed Acute Anemia Acute Anemia associated with acute blood loss Acute Anemia, chronic disease Acute Chronic renal failure Acute Diarrhea Acute ESRD (end stage renal disease) Acute End stage renal disease Acute End stage renal disease Acute Hyperkalemia Acute Hyperkalemia Acute Hyperkalemia Acute Hyperkalemia Acute Hyperkalemia Acute Hyperkalemia Acute Hyperkalemia Acute Hyperkalemia Acute Hyperkalemia Acute Hyperkalemia, diminished renal excretion Acute Hypertension Acute Hypocalcemia Acute Kidney failure Acute Kidney failure Acute Kidney failure Acute Metabolic acidosis Acute Renal failure Acute Shingles (herpes zoster) polyneuropathy Acute Uremia Acute Uremia Acute
--- NOTE | 2017-03-12 12:22 | ASMTCMCOM ---
CM Note CM Note Notes: Reviewed chart, spoke with RN. Pt well known to [facility] Case Management. Pt admitted for emergency dialysis. Pt lives w/son, has strong family support. Case Management d/c poc: anticipate home independently when medically stable. Case Management available if needs change. Date Signed: 03/12/2017 12:22 PM Electronically Signed By:Shanelle Zamorano
[2017-03-12] MEDS ORDERED: CHOLECALCIFEROL VIT D3 50,000 UNIT CAP PO SCH (13:04)
[2017-03-12 14:47] VITALS: BP 174/79; PULSE 61; RESP 10; TEMP 97.5
[2017-03-12] MEDS ORDERED: HEPARIN 50,000 UNIT/10 ML VIAL ONE (15:54)
--- NOTE | 2017-03-12 19:03 | GDS ---
[f rep st] DISCHARGE SUMMARY DISCHARGE DIAGNOSIS: End-stage renal disease. HOSPITAL COURSE: This patient is being admitted weekly for dialysis. He received 2 dialysis sessio ns, and will be discharged home today. /[id number]/MODL
== END 2017-03-12 19:25 | disposition home or self-care (01) | DRG 640 ==
LOC: F2W 13:30 → OBSVTOIN 14:10
PROVIDERS: ADMIT Internal Medicine; ATTEND Internal Medicine
PROC: 5A1D00Z (ICD-10-PCS; principal; 2017-03-11)
DX: E87.5 Hyperkalemia (principal); I12.0 Hypertensive chronic kidney disease with stage 5 chronic kidney disease or end stage renal disease; N18.6 End stage renal disease; Z99.2 Dependence on renal dialysis; I25.10 Atherosclerotic heart disease of native coronary artery without angina pectoris; Z95.5 Presence of coronary angioplasty implant and graft; Z87.891 Personal history of nicotine dependence; D63.1 Anemia in chronic kidney disease
CPT/HCPCS: 87350-90; J0610; J0885; J1644; J1815

== ENCOUNTER 2017-03-18 15:07 | Observation (INO) | payer OTHER ==
--- NOTE | 2017-03-18 15:26 | EDPHY ---
H & P Stated Complaint: Here for dialysis Time Seen by Provider: 03/18/17 15:17 HPI/ROS: CHIEF COMPLAINT: Presenting for outpatient dialysis HISTORY OF PRESENT ILLNESS: The patient presents to the emergency department requesting dialysis. He is well known to our emergency department and is unable to obtain outpatient dialysis secondary to his insurance status. The patient reports he was last dialyzed on Saturday. The patient has had some chronic diarrhea. He denies acute chest pain or shortness of breath. The patient denies fever, cough or congestion. The patient is currently receiving dialysis through a right chest wall dialysis catheter. REVIEW OF SYSTEMS: A comprehensive 10 point review of systems is otherwise negative aside from elements mentioned in the history of present illness. 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 Exam Limitations: No limitations - Personal History Tetanus Vaccine Date: 2010 - Medical/Surgical History Hx Asthma: No Hx Chronic Respiratory Disease: No Hx Diabetes: No Hx Cardiac Disease: Yes Hx Renal Disease: Yes Hx Cirrhosis: No Hx Alcoholism: No Hx HIV/AIDS: No Hx Splenectomy or Spleen Trauma: No Other PMH: gout, htn, hernia, anemia, cad, heart stent, esophagitis, GIB on plavix, ESRD, dialysis, shingles, chronic loose stools - Social History Smoking Status: Former smoker - Physical Exam Exam: General Appearance: Alert, no distress Eyes: Pupils equal and round no pallor or injection ENT, Mouth: Mucous membranes moist Respiratory: Dialysis catheter noted to right anterior chest wall Cardiovascular: Faint rales bilateral lung bases Gastrointestinal: Abdomen is soft and nontender, no masses, bowel sounds normal Neurological: A&O, normal motor function, normal sensory exam, normal cranial nerves Skin: Warm and dry, no rashes Musculoskeletal: Neck is supple nontender Extremities: symmetrical, full range of motion Constitutional: Initial Vital Signs Temperature (C) 36.7 C 03/18/17 15:11 Heart Rate 78 03/18/17 15:11 Respiratory Rate 18 03/18/17 15:11 Blood Pressure 158/102 H 03/18/17 15:11 O2 Sat (%) 94 03/18/17 15:11 O2 Delivery Mode Room Air Allergies/Adverse Reactions: No Known Allergies Allergy (Verified 03/18/17 15:10) Home Medications: Medication Instructions Recorded Atorvastatin Calcium [Lipitor 40 80 mg PO DAILY 10/30/16 mg (*)] Nitroglycerin [Nitrostat 0.4 mg 0.4 mg SL AD PRN 10/30/16 (*)] Sodium Bicarbonate [Na Bicarb] 1,300 mg PO DAILY 10/30/16 Pantoprazole Sodium [Protonix 40mg 40 mg PO DAILY 12/03/16 (*)] Folic Acid/Vit B Com W/C 1 each PO DAILY 01/07/17 [Nephro-Peyton Rx] Cholecalciferol Vit D3 [Vitamin D3 50,000 unit PO TU 01/21/17 (*)] amLODIPine BESYLATE [Norvasc 10 mg 10 mg PO DAILY #30 tab 02/20/17 (*)] Calcium Carbonate [Tums 500MG (*)] 1,500 mg PO TIDMEAL 03/11/17 hydrALAZINE [Apresoline 50 mg (*)] 50 mg PO DAILY 03/11/17 Medical Decision Making ED Course/Re-evaluation: The patient presents to the ED for his scheduled weekly dialysis. The patient was noted to be uremic. The patient does have very mild hyperkalemia. The patient has no evidence of significant volume overload. I spoke with the hospitalist service and neurology service. The patient will be admitted for in-patient dialysis. The patient was hemodynamically stable throughout his stay in the ED. The patient is noted to be chronically anemic with hematocrit of 22.5 which is unchanged from his baseline. Differential Diagnosis: Differential diagnosis considered includes hyperkalemia, uremia, arrhythmia, dehydration, metabolic abnormality - Data Points Laboratory Results: Laboratory Results 03/18/17 15:46 03/18/17 15:46 03/18/17 03/18/17 03/18/17 15:46 15:46 15:46 WBC 5.22 10^3/uL 10^3/uL (3.80-9.50) RBC 2.38 10^6/uL L 10^6/uL (4.40-6.38) Hgb 7.3 g/dL L g/dL (13.7-17.5) Hct 22.8 % L % (40.0-51.0) MCV 95.8 fL fL (81.5-99.8) MCH 30.7 pg pg (27.9-34.1) MCHC 32.0 g/dL L g/dL (32.4-36.7) RDW 15.2 % % (11.5-15.2) Plt Count 126 10^3/uL L 10^3/uL (150-400) MPV 9.6 fL fL (8.7-11.7) Neut % (Auto) 65.9 % % (39.3-74.2) Lymph % (Auto) 15.9 % % (15.0-45.0) Bowman % (Auto) 6.5 % % (4.5-13.0) Eos % (Auto) 10.5 % H % (0.6-7.6) Baso % (Auto) 0.8 % % (0.3-1.7) Nucleat RBC Rel Count 0.0 % % (0.0-0.2) Absolute Neuts (auto) 3.44 10^3/uL 10^3/uL (1.70-6.50) Absolute Lymphs (auto) 0.83 10^3/uL L 10^3/uL (1.00-3.00) Absolute Monos (auto) 0.34 10^3/uL 10^3/uL (0.30-0.80) Absolute Eos (auto) 0.55 10^3/uL H 10^3/uL (0.03-0.40) Absolute Basos (auto) 0.04 10^3/uL 10^3/uL (0.02-0.10) Absolute Nucleated RBC 0.00 10^3/uL 10^3/uL (0-0.01) Immature Gran % 0.4 % % (0.0-1.1) Immature Gran # 0.02 10^3/uL 10^3/uL (0.00-0.10) Sodium 145 mEq/L H mEq/L (134-144) Potassium 5.6 mEq/L H mEq/L (3.5-5.2) Chloride 104 mEq/L mEq/L (97-110) Carbon Dioxide 16 mEq/l L mEq/l (22-31) Anion Gap 25 mEq/L H mEq/L (8-16) BUN 117 mg/dL H* mg/dL (7-23) Creatinine 15.6 mg/dL H* mg/dL (0.7-1.3) Estimated GFR 3 Glucose 119 mg/dL H mg/dL (70-100) Calcium 7.3 mg/dL L mg/dL (8.5-10.4) Hep Bs Antigen Pending Hep Bs Antibody Pending Hep B Core Total Ab Pending Departure - Departure Disposition: [facility] Inpatient Acute Clinical Impression: End stage renal disease, Anemia, Uremia Condition: Fair
[2017-03-18 15:55] LABS: % IMMATURE GRANULYOCYTES 0.4 % (0.0-1.1); ABSOLUTE IMMATURE GRANULOCYTES 0.02 10^3/uL (0.00-0.10); ADD DIFF? NO; ADD MORPH? NO; ADD SCAN? NO; ATYPICAL LYMPHOCYTE FLAG 0 (0-99); FRAGMENT RBC FLAG 0 (0-99); HEMATOCRIT 22.8 % (40.0-51.0); HEMOGLOBIN 7.3 g/dL (13.7-17.5); LEFT SHIFT FLG 0 (0-99); LIPEMIA HEMOLYSIS FLAG 80 (0-99); MEAN CELL HEMOGLOBIN 30.7 pg (27.9-34.1); MEAN CELL VOLUME 95.8 fL (81.5-99.8); MEAN PLATELET VOLUME 9.6 fL (8.7-11.7); PLATELET CLUMPS FLAG 0 (0-99); PLATELET COUNT 126 10^3/uL (150-400); RED BLOOD CELL COUNT 2.38 10^6/uL (4.40-6.38); RED CELL DISTRIBUTION WIDTH 15.2 % (11.5-15.2)
[2017-03-18 16:17] LABS: ANION GAP 25 mEq/L (8-16); CALCIUM 7.3 mg/dL (8.5-10.4); CARBON DIOXIDE 16 mEq/l (22-31); CHLORIDE 104 mEq/L (97-110); GLUCOSE 119 mg/dL (70-100); POTASSIUM 5.6 mEq/L (3.5-5.2); SODIUM 145 mEq/L (134-144)
[2017-03-18 16:37] LABS: CREATININE 15.6 mg/dL (0.7-1.3); GLOMERULAR FILTRATION RATE 3
[2017-03-18 17:09] VITALS: RESP 16
[2017-03-18 17:30] LABS: HEPATITIS B SURFACE ANTIBODY NEGATIVE (NEGATIVE)
--- NOTE | 2017-03-18 18:46 | SOAPPROG ---
JACQUELINE Progress Note Assessment/Plan: Assessment: 1)ESRD- no access to outpt HD unit due to insurance status -HD tonight and again in am -low blood flow and gentle UF tonight as has had dialysis dysequilibrium in past 2)Hyperkalemia -HD now, renal diet when taking po 3)Anemia of CKD -Epo 10,000 units sq x 1 -transfuse if Hb < 7 4)MBD of CKD -check phos am labs, renal diet when po 5)Met acidosis -will improve with HD pager [phone] 03/18/17 19:38 Subjective: 67 y/o man with h/o ESRD without access to regular HD as outpt due to insurance status presents to ER complaining of weakness, diarrhea, generalized malaise. Last HD was here a week ago. K 5.6. Objective: Vital Signs Temp Pulse Resp BP Pulse Ox 36.4 C 67 16 167/82 H 97 03/18/17 17:19 03/18/17 17:19 03/18/17 17:19 03/18/17 17:19 03/18/17 17:19 03/17/17 03/18/17 03/19/17 05:59 05:59 05:59 Intake Total 0 Output Total 0 Balance 0 Physical Exam - Physical Exam General Appearance: no apparent distress Neck: supple Respiratory: lungs clear Cardiac/Chest: regular rate, rhythm, other (no rub) Abdomen: normal bowel sounds, non-tender, soft Extremities: other (+edema bilat LE) Neuro/Psych: alert, oriented x 3 ICD10 Worksheet Patient Problems: Problems Problem Status Onset Anemia Acute End stage renal disease Acute Uremia Acute Abdominal pain Acute Acute renal failure Acute Acute upper GI bleed Acute Anemia associated with acute blood loss Acute Anemia, chronic disease Acute Chronic renal failure Acute Diarrhea Acute ESRD (end stage renal disease) Acute End stage renal disease Acute End stage renal disease Acute Hyperkalemia Acute Hyperkalemia Acute Hyperkalemia Acute Hyperkalemia Acute Hyperkalemia Acute Hyperkalemia Acute Hyperkalemia Acute Hyperkalemia Acute Hyperkalemia Acute Hyperkalemia Acute Hyperkalemia, diminished renal excretion Acute Hypertension Acute Hypocalcemia Acute Kidney failure Acute Kidney failure Acute Kidney failure Acute Metabolic acidosis Acute Renal failure Acute Shingles (herpes zoster) polyneuropathy Acute Uremia Acute
[2017-03-18] MEDS ORDERED: MANNITOL 20% 250 ML IV ONE (19:30)
[2017-03-18] MEDS ORDERED: ONDANSETRON DISINTEGRATING 4 MG TAB PO PRN (20:22)
[2017-03-18] MEDS ORDERED: ACETAMINOPHEN 325 MG TAB PO PRN (20:22)
[2017-03-18] MEDS ORDERED: ONDANSETRON 4 MG/2 ML VIAL IVP PRN (20:22)
[2017-03-18] MEDS ORDERED: NITROGLYCERIN 0.4 MG BTL SL PRN (20:24)
[2017-03-18] MEDS: hydrALAZINE 25 MG TAB PO SCH (22:25)
--- NOTE | 2017-03-18 22:31 | GHP ---
[f rep st] HISTORY AND PHYSICAL DATE OF ADMISSION: 03/18/2017 CHIEF COMPLAINT: The patient presents for dialysis, reporting increasing lower extremity edema. HISTORY OF PRESENT ILLNESS: The patient is a 67-year-old male, well known to the [facility] with a history of end-stage renal disease, who unfortunately lacks outpatient dialysis benefit s and presents to the emergency department for emergency dialysis needs. He was last dialyzed 6 days ago. He denies chest pain or shortness of breath. He endorses increasing lower extremity edema. Mitch evans has otherwise been feeling fairly well. I interviewed him toward the end of his dialysis session. He has no complaints. PAST MEDICAL HISTORY: 1. End-stage renal disease, dialysis dependent. Patient has a right IJ tunneled dialysis catheter. 2. Coronary artery disease. Left heart catheterization in November of 2015 showed [place] vessel coronary disease with 85% to 99% occlusion of the RCA, which were not intervened upon due to his renal failur e. 3. Anemia of chronic kidney disease. 4. History of GI bleed. 5. History of hyperkalemia. MEDICATIONS: Please see [facility] Directions for complete updated outpatient medication list. ALLERGIES: He has no known drug allergies. FAMILY HISTORY: His mom had a stroke and has hypertension. SOCIAL HISTORY: The patient is a former smoker. He lives independently. REVIEW OF SYSTEMS: A 10-point review of systems was performed and is negative except as per HPI. OBJECTIVE: VITAL SIGNS: Temperature 36.4, blood pressure 167/82, heart rate 67, respiratory rate 16 , he is 97% on room air. GENERAL: Patient is awake, alert, and oriented, in no acute distress. RACHANA NT: Head is atraumatic, normocephalic. Pupils round, react to light. Extraocular muscles intact. Oropharynx is clear. Mucous members are moist. NECK: Supple. He has 10 cm of JVD. HEART: Regula r rate and rhythm. LUNGS: Clear to auscultation bilaterally. ABDOMEN: Soft, nondistended, nontend er. Normoactive bowel tones. EXTREMITIES: He has 1 to 2+ bilateral lower extremity pretibial pitti ng edema. NEUROLOGIC: Grossly nonfocal. LABORATORY DATA: CBC reveals normal white count, hemoglobin is 7.3, platelets 126. Basic metabolic panel reveals sodium 145, potassium 5.6, CO2 16, BUN 117, creatinine 15.6, glucose 119, calcium 7.3. Hepatitis B surface antigen and surface antibody negative. Hepatitis B core antibody negative. ASSESSMENT AND PLAN: The patient is a 67-year-old male with history of end-stage renal disease who l [facility] outpatient dialysis benefits, presents to the emergency department for dialysis needs. 1. End-stage renal disease. The patient is admitted for dialysis. Renal was consulted. He will be dialyzed tonight as well as tomorrow. 2. Hyperkalemia. This is mild at 5.6. As above, he is undergoing dialysis. We will repeat a metab olic panel in the morning. 3. Metabolic acidosis secondary to end-stage renal disease. He will be continued on his oral sodium bicarb and will monitor. 4. Anemia of chronic kidney disease. He is receiving epoetin per the Renal service. We will rechec k a CBC in the morning. Given his severe coronary disease, I would favor hemoglobin over 8, though h e is currently stable without evidence of active bleeding. 5. History of gastrointestinal bleed. The patient bled on dual antiplatelet therapy and then again bled on aspirin monotherapy, so he is currently on no antiplatelets or anticoagulants. He reports no recent gastrointestinal bleeding. Continue to monitor. 6. Coronary artery disease. He has severe 99% occlusive disease in his right coronary artery. He h as been chest pain free. Unfortunately, due to his gastrointestinal bleeding, he does not tolerate a nti-platelet therapy. It is unclear why he is not on a beta bonifacio, although this could be consider ed given his poor blood pressure control. 7. Hypertension. As noticed his med rec recently shows hydralazine 50 mg daily. I suspect this is meant to be three times daily and I will change that to three times daily for now. I will also srini nue his amlodipine. We will consider addition of beta bonifacio if his blood pressure remains poorly c ontrolled. 8. Deep venous thrombosis prophylaxis. SCDs will be placed. Anticipate the patient may be able to discharge tomorrow. Should he have a prolonged hospitalization, we will consider addition of heparin . CODE STATUS: Patient is full code number. DISPOSITION: Patient is admitted to observation status. He may be a candidate to discharge after di alysis tomorrow. /[id number]/MODL
[2017-03-18] MEDS ORDERED: HEPARIN 50,000 UNIT/10 ML VIAL ONE (23:20)
[2017-03-19 05:39] LABS: ALBUMIN 3.4 g/dL (3.5-5.0); ANION GAP 17 mEq/L (8-16); CALCIUM 7.4 mg/dL (8.5-10.4); CARBON DIOXIDE 23 mEq/l (22-31); CHLORIDE 101 mEq/L (97-110); GLOMERULAR FILTRATION RATE 5; GLUCOSE 123 mg/dL (70-100); POTASSIUM 4.6 mEq/L (3.5-5.2); SODIUM 141 mEq/L (134-144)
[2017-03-19 05:59] LABS: HEMATOCRIT 20.7 % (40.0-51.0); MEAN CELL HEMOGLOBIN 31.2 pg (27.9-34.1); MEAN CELL HEMOGLOBIN CONCENTR. 33.3 g/dL (32.4-36.7); MEAN CELL VOLUME 93.7 fL (81.5-99.8); RED BLOOD CELL COUNT 2.21 10^6/uL (4.40-6.38); RED CELL DISTRIBUTION WIDTH 14.9 % (11.5-15.2)
[2017-03-19 06:00] LABS: CREATININE 10.2 mg/dL (0.7-1.3)
[2017-03-19 06:02] LABS: HEMOGLOBIN 6.9 g/dL (13.7-17.5)
[2017-03-19 07:24] VITALS: O2SAT 97
[2017-03-19] MEDS ORDERED: CHOLECALCIFEROL VIT D3 50,000 UNIT CAP PO SCH (09:00)
[2017-03-19] MEDS ORDERED: PANTOPRAZOLE SODIUM 40 MG TAB PO SCH (09:00)
[2017-03-19] MEDS ORDERED: SODIUM BICARBONATE 650 MG TAB PO SCH (09:00)
[2017-03-19] MEDS ORDERED: NEPHROVITE FOLIC ACID/VIT B&C 1 TAB PO SCH (09:00)
[2017-03-19] MEDS ORDERED: EPOETIN ALFA 10,000 UNIT/ML VIAL SC SCH (09:00)
[2017-03-19] MEDS ORDERED: ATORVASTATIN CALCIUM 40 MG TAB PO SCH (09:00)
--- NOTE | 2017-03-19 09:19 | SOAPPROG ---
JACQUELINE Progress Note Assessment/Plan: Assessment:Plan: ESRD-stable after Hd last night -hd again today -azotemic -daily while inpatient CHF/Volume overload-better Access-stable Anemia-symptomatic -plan to transfuse today Dispo-pending 03/19/17 09:16 Subjective: tolerating dialysis Objective: Vital Signs Temp Pulse Resp BP Pulse Ox 36.4 C 62 16 148/79 H 97 03/19/17 07:21 03/19/17 07:21 03/19/17 07:21 03/19/17 07:21 03/19/17 07:21 Laboratory Results 03/19/17 05:10 03/19/17 05:10 03/18/17 03/19/17 03/20/17 05:59 05:59 05:59 Intake Total 250 Output Total 0 Balance 250 Physical Exam - Physical Exam General Appearance: WD/WN, alert, no apparent distress, thin EENT: normal ENT inspection Neck: normal inspection Respiratory: decreased breath sounds, rales (1/4) Cardiac/Chest: regular rate, rhythm, No diastolic murmur, No systolic murmur Abdomen: normal bowel sounds, non-tender, soft, No hepatomegaly, No splenomegaly Back: Normal inspection Skin: normal color, warm/dry Extremities: swelling (1-2 + to mid fletcher) Neuro/Psych: no motor/sensory deficits, alert, normal mood/affect ICD10 Worksheet Patient Problems: Problems Problem Status Onset Anemia Acute End stage renal disease Acute Uremia Acute Abdominal pain Acute Acute renal failure Acute Acute upper GI bleed Acute Anemia associated with acute blood loss Acute Anemia, chronic disease Acute Chronic renal failure Acute Diarrhea Acute ESRD (end stage renal disease) Acute End stage renal disease Acute End stage renal disease Acute Hyperkalemia Acute Hyperkalemia Acute Hyperkalemia Acute Hyperkalemia Acute Hyperkalemia Acute Hyperkalemia Acute Hyperkalemia Acute Hyperkalemia Acute Hyperkalemia Acute Hyperkalemia Acute Hyperkalemia, diminished renal excretion Acute Hypertension Acute Hypocalcemia Acute Kidney failure Acute Kidney failure Acute Kidney failure Acute Metabolic acidosis Acute Renal failure Acute Shingles (herpes zoster) polyneuropathy Acute Uremia Acute
[2017-03-19] MEDS: hydrALAZINE 25 MG TAB PO SCH ×2 (14:01→15:48)
[2017-03-19] MEDS: CALCIUM CARBONATE 500 MG CHEWABLE TAB PO SCH ×2 (14:01→14:04)
--- NOTE | 2017-03-19 14:14 | ASMTCMCOM ---
CM Note CM Note Notes: Patient admitted for ESRD, emergent dialysis. Patient will discharge home independently when medically stable. CM available should any needs arise. Date Signed: 03/19/2017 02:13 PM Electronically Signed By:Annabel Monique RN
[2017-03-19 15:27] VITALS: PULSE 65; TEMP 97.3
[2017-03-19 15:44] VITALS: BP 172/88
--- NOTE | 2017-03-20 01:25 | GDS ---
[f rep st] DISCHARGE SUMMARY DIAGNOSES: 1. End-stage renal disease, dialysis dependent. He has a right internal jugular tunneled dialysis c atheter. 2. Coronary artery disease with 85% to 99% occlusion of the right coronary artery. 3. Anemia of chronic disease. 4. History of gastrointestinal bleed. 5. History of recurrent hyperkalemia. PROCEDURES DONE: Dialysis. HOSPITAL COURSE: The patient is a 67-year-old with end-stage renal disease, who is dialysis dependen t. He, unfortunately, is unable to get dialysis in the outpatient setting and comes into the [facility] for dialysis needs. On admission, he was hyperkalemic with a potassium of 5.6. He had metabolic a cidosis and significant anemia of chronic disease. He underwent dialysis x2 and also had a transfusi on of red blood cells. On the day of discharge, he is feeling much improved and is ready to go home. He continues to have high blood pressure and will continue his antihypertensives. CONDITION ON DISCHARGE: Good. Vital signs stable, except for elevated blood pressure. DISCHARGE MEDICATIONS: Please see discharge medication list. FOLLOWUP: As needed for dialysis. /[id number]/MODL
--- NOTE | 2017-03-20 16:32 | ASDISCHSUM ---
Discharge Information Plan Status:Home with No Needs Medically Cleared to Leave:03/19/2017 Discharge Date:03/19/2017 05:00 PM CM D/C Disposition:Home, Routine, Self-Care ADT D/C Disposition:Home, Routine, Self-Care Projected Discharge Date:03/19/2017 12:00 AM Transportation at D/C: Discharge Delay Reason: Follow-Up Date:03/19/2017 12:00 AM Discharge Slot: Final Diagnosis: Placement Information Patient Contact Information Contact Name:ALCIDESMELISSACHLOE Relationship:Geoffrey Address: Work Phone: City: [facility] Phone: [facility]/Zip Code: Email: Financial Information Financial Class:Self-Pay Primary Plan Desc:WE CARE Primary Plan Number:99 Secondary Plan Desc: Secondary Plan Number: Assessment Information [facility] CM Progress Note CM Note CM Note Notes: Patient admitted for ESRD, emergent dialysis. Patient will discharge home independently when medically stable. CM available should any needs arise. Date Signed: 03/19/2017 02:13 PM Electronically Signed By:Annabel Monique RN Intervention Information
== END 2017-03-19 17:00 | disposition home or self-care (01) ==
LOC: F3E 17:15
PROVIDERS: ADMIT Hospitalist; ATTEND Internal Medicine
PROC: 5A1D60Z (ICD-10-PCS; principal; 2017-03-18)
PROC: 30233N1 Transfusion of Nonautologous Red Blood Cells into Peripheral Vein, Percutaneous Approach (ICD-10-PCS; principal; 2017-03-18)
DX: E87.5 Hyperkalemia (principal); I12.0 Hypertensive chronic kidney disease with stage 5 chronic kidney disease or end stage renal disease; N18.6 End stage renal disease; D63.1 Anemia in chronic kidney disease; I25.10 Atherosclerotic heart disease of native coronary artery without angina pectoris; E87.2 Acidosis; R60.9 Edema, unspecified; I50.9 Heart failure, unspecified; R19.7 Diarrhea, unspecified; K21.0 Gastro-esophageal reflux disease with esophagitis; M10.9 Gout, unspecified; Z59.7 Insufficient social insurance and welfare support; Z87.891 Personal history of nicotine dependence; Z99.2 Dependence on renal dialysis; Z95.5 Presence of coronary angioplasty implant and graft
CPT/HCPCS: 86704-90; G0378; J0885; J1644; P9016; P9021

== ENCOUNTER 2017-03-25 12:04 | Inpatient (IN) | payer OTHER ==
--- NOTE | 2017-03-25 13:56 | EDPHY ---
H & P Stated Complaint: here for dialysis -last dialysis saturday--no complaints Time Seen by Provider: 03/25/17 13:48 HPI/ROS: CHIEF COMPLAINT: Diarrhea HISTORY OF PRESENT ILLNESS: The patient is a 67-year-old end-stage renal dialysis patient who comes to the emergency department complaining of diarrhea. His last dialysis was almost 1 week ago. No fevers. No chest pain. No shortness of breath. He does have a history of significant coronary disease as well as anemia and GI bleed. He denies any weakness or abdominal pain currently. REVIEW OF SYSTEMS: Constitutional: denies: chills, fever, recent illness, recent injury EENTM: denies: blurred vision, double vision, nose congestion Respiratory: denies: cough, shortness of breath Cardiac: denies: chest pain, irregular heart rate, lightheadedness, palpitations Gastrointestinal/Abdominal: See HPI denies: abdominal pain, nausea, vomiting, blood streaked stools Genitourinary: denies: dysuria, frequency, hematuria, pain Musculoskeletal: denies: joint pain, muscle pain Skin: denies: lesions, rash, jaundice, bruising Neurological: denies: headache, numbness, paresthesia, tingling, dizziness, weakness Hematologic/Lymphatic: denies: blood clots, easy bleeding, easy bruising Immunologic/allergic: denies: HIV/AIDS, transplant EXAM: GENERAL: Well-appearing, well-nourished and in no acute distress. HEAD: Atraumatic, normocephalic. EYES: Pupils equal round and reactive to light, extraocular movements intact, sclera anicteric, conjunctiva are normal. ENT: TMs normal, nares patent, oropharynx clear without exudates. Moist mucous membranes. NECK: Normal range of motion, supple without lymphadenopathy or JVD. LUNGS: Breath sounds clear to auscultation bilaterally and equal. No wheezes rales or rhonchi. HEART: Regular rate and rhythm without murmurs, rubs or gallops. ABDOMEN: Soft, nontender, normoactive bowel sounds. No guarding, no rebound. No masses appreciated. BACK: No CVA tenderness, no spinal tenderness, step-offs or deformities EXTREMITIES: Normal range of motion, no pitting or edema. No clubbing or cyanosis. NEUROLOGICAL: Cranial nerves II through XII grossly intact. Normal speech, normal gait. 5/5 strength, normal movement in all extremities, normal sensation PSYCH: Normal mood, normal affect. SKIN: Warm, dry, normal turgor, no visible rashes or lesions. Dialysis catheter in place right chest 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, Old records Exam Limitations: No limitations - Personal History Current Tetanus/Diphtheria Vaccine: Unsure Current Tetanus Diphtheria and Acellular Pertussis (TDAP): Unsure Tetanus Vaccine Date: 2010 - Medical/Surgical History Hx Asthma: No Hx Chronic Respiratory Disease: No Hx Diabetes: No Hx Cardiac Disease: Yes Hx Renal Disease: Yes Hx Cirrhosis: No Hx Alcoholism: No Hx HIV/AIDS: No Hx Splenectomy or Spleen Trauma: No Other PMH: gout, htn, hernia, anemia, cad, heart stent, esophagitis, GIB on plavix, ESRD, dialysis, shingles, chronic loose stools - Family History Significant Family History: No pertinent family hx - Social History Smoking Status: Former smoker Alcohol Use: Sober Drug Use: None Constitutional: Initial Vital Signs Temperature (C) 36.5 C 03/25/17 12:27 Respiratory Rate 16 03/25/17 12:27 Blood Pressure 170/79 H 03/25/17 12:27 O2 Sat (%) 97 03/25/17 12:27 O2 Delivery Mode Room Air Allergies/Adverse Reactions: No Known Allergies Allergy (Verified 03/18/17 15:10) Home Medications: Medication Instructions Recorded Atorvastatin Calcium [Lipitor 40 80 mg PO DAILY 10/30/16 mg (*)] Nitroglycerin [Nitrostat 0.4 mg 0.4 mg SL AD PRN 10/30/16 (*)] Sodium Bicarbonate [Na Bicarb] 1,300 mg PO DAILY 10/30/16 Pantoprazole Sodium [Protonix 40mg 40 mg PO DAILY 12/03/16 (*)] Folic Acid/Vit B Com W/C 1 each PO DAILY 01/07/17 [Nephro-Peyton Rx] Cholecalciferol Vit D3 [Vitamin D3 50,000 unit PO TU 01/21/17 (*)] amLODIPine BESYLATE [Norvasc 10 mg 10 mg PO DAILY #30 tab 02/20/17 (*)] Calcium Carbonate [Tums 500MG (*)] 1,500 mg PO TIDMEAL 03/11/17 hydrALAZINE [Apresoline 50 mg (*)] 50 mg PO DAILY 03/11/17 Medical Decision Making - Diagnostics EKG Interpretation: An EKG obtained and was read and documented in trace view. Please see trace view for full reading and report. Sinus rhythm, no acute ischemic changes or ST elevation or peaked T-waves ED Course/Re-evaluation: 2:10 p.m. I discussed the case with Dr. Haji who will admit to the medical service. Also Dr. Rivera from nephrology called and states that she will be here fairly soon to arrange dialysis. She is requesting that we draw labs. That they are already in the lab. Differential Diagnosis: Partial list of the Differential diagnosis considered include but were not limited to; renal failure, hyperkalemia and although unlikely based on the history and physical exam, I also considered anxiety, infection . - Data Points Laboratory Results: Laboratory Results 03/25/17 14:03 03/25/17 14:03 Medications Given: Discontinued Medications Acetaminophen (Tylenol) 650 mg PO Q4HRS PRN PRN Reason: Pain, Mild/Fever, Can Take PO Stop: 09/21/17 16:09 Last Admin: 03/26/17 17:30 Dose: 650 mg Amlodipine Besylate (Norvasc) 10 mg PO DAILY BLAIR Stop: 09/22/17 08:59 Last Admin: 03/26/17 09:44 Dose: 10 mg Atorvastatin Calcium (Lipitor) 80 mg PO DAILY BLAIR Stop: 09/22/17 08:59 Last Admin: 03/26/17 13:04 Dose: 80 mg Calcium Carbonate (Tums) 1,500 mg PO TIDMEAL BLAIR Stop: 09/21/17 17:59 Last Admin: 03/26/17 17:29 Dose: 1,500 mg Cholecalciferol (D3-50) 50,000 unit PO TU BLAIR Stop: 09/22/17 08:59 Last Admin: 03/26/17 13:11 Dose: 50,000 unit Hydralazine HCl (Apresoline) 50 mg PO DAILY BLAIR Stop: 09/22/17 08:59 Last Admin: 03/26/17 13:03 Dose: 50 mg Pantoprazole Sodium (Protonix) 40 mg PO DAILY BLAIR Stop: 09/22/17 08:59 Last Admin: 03/26/17 13:03 Dose: 40 mg Sodium Bicarbonate (Na Bicarb) 1,300 mg PO DAILY BLAIR Stop: 09/22/17 08:59 Last Admin: 03/26/17 13:03 Dose: 1,300 mg Vitamin B Complex/Vit C/Folic Acid (Ev-Peyton) 1 each PO DAILY BLAIR Stop: 09/22/17 08:59 Last Admin: 03/26/17 13:02 Dose: 1 each Departure - Departure Disposition: [facility] Acute Clinical Impression: Hyperkalemia Renal failure Qualifiers: Renal failure chronicity: chronic Chronic kidney disease stage: on chronic dialysis Qualified Code(s): N18.6 - End stage renal disease; Z99.2 - Dependence on renal dialysis Condition: Good
[2017-03-25 14:14] LABS: % IMMATURE GRANULYOCYTES 0.4 % (0.0-1.1); ABSOLUTE IMMATURE GRANULOCYTES 0.03 10^3/uL (0.00-0.10); ADD DIFF? NO; ADD MORPH? NO; ADD SCAN? NO; ATYPICAL LYMPHOCYTE FLAG 0 (0-99); FRAGMENT RBC FLAG 60 (0-99); HEMATOCRIT 35.5 % (40.0-51.0); HEMOGLOBIN 11.7 g/dL (13.7-17.5); LEFT SHIFT FLG 0 (0-99); LIPEMIA HEMOLYSIS FLAG 80 (0-99); MEAN CELL HEMOGLOBIN 30.2 pg (27.9-34.1); MEAN CELL VOLUME 91.7 fL (81.5-99.8); MEAN PLATELET VOLUME 10.5 fL (8.7-11.7); PLATELET CLUMPS FLAG 0 (0-99); PLATELET COUNT 174 10^3/uL (150-400); RED BLOOD CELL COUNT 3.87 10^6/uL (4.40-6.38); RED CELL DISTRIBUTION WIDTH 15.7 % (11.5-15.2)
--- NOTE | 2017-03-25 14:15 | CPEKG ---
Heart Rate: 62 RR Interval: 968 P-R Interval: 176 QRSD Interval: 98 QT Interval: 440 QTC Interval: 447 P Freeman Spur: 72 QRS [place] Spur: 74 T Wave Freeman Spur: 78 EKG Severity - NORMAL ECG - EKG Impression: SINUS RHYTHM Electronically Signed By: Gibson Victoria 25-Mar-2017 14:16:19
[2017-03-25 14:53] LABS: ANION GAP 28 mEq/L (8-16); CALCIUM 8.9 mg/dL (8.5-10.4); CARBON DIOXIDE 13 mEq/l (22-31); CHLORIDE 102 mEq/L (97-110); GLUCOSE 112 mg/dL (70-100); SODIUM 143 mEq/L (134-144)
[2017-03-25 15:24] LABS: GLOMERULAR FILTRATION RATE 3
[2017-03-25 15:25] LABS: POTASSIUM 6.8 mEq/L (3.5-5.2)
[2017-03-25 15:26] LABS: CREATININE 15.9 mg/dL (0.7-1.3)
--- NOTE | 2017-03-25 15:36 | PDCONSULT ---
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 - Will do HD today. - Will do HD again tomorrow. - Pt knows to return to ED as needed for emergent symptoms for dialysis. Hyperkalemia: K 6.8, will modulate on HD today and tomorrow. Hypervolemia: will modulate on HD. Metabolic acidosis: CO2 13, will modulate on HD. HTN: continue home meds, will also help with fluid removal on HD. Thank you for the interesting consult. Nephrology will continue to follow, please call if you have any additional questions or concerns. H & P Stated Complaint: here for dialysis -last dialysis saturday--no complaints Time Seen by Provider: 03/25/17 13:48 HPI/ROS: HPI: Mr. Walton is a 67 yo M with ESRD who lacks benefits to get regular outpatient dialysis. He presents to ER today with diarrhea, which is his usual symptom that he needs dialysis. He has no dyspnea or chest pain. He does note having swelling in his legs that is a bit worse than usual. Otherwise, he has no pain today. ROS: Positive per HPI, rest of 10-point ROS negative - Personal History Current Tetanus/Diphtheria Vaccine: Unsure Current Tetanus Diphtheria and Acellular Pertussis (TDAP): Unsure Tetanus Vaccine Date: 2010 - Medical/Surgical History Hx Asthma: No Hx Chronic Respiratory Disease: No Hx Diabetes: No Hx Cardiac Disease: Yes Hx Renal Disease: Yes Hx Cirrhosis: No Hx Alcoholism: No Hx HIV/AIDS: No Hx Splenectomy or Spleen Trauma: No Other PMH: gout, htn, hernia, anemia, cad, heart stent, esophagitis, GIB on plavix, ESRD, dialysis, shingles, chronic loose stools - Family History Significant Family History: No pertinent family hx - Social History Smoking Status: Former smoker - Physical Exam Exam: General: alert and oriented, no acute distress Eyes; EOMI, PERRL OP: Clear, MMM Neck: supple no thyromegaly CV: RRR, +2/4 radial and dorsalis pedis pulses, +2 edema BLE Resp: CTA bilat, nonlabored respirations on NC Abd: Soft, NT/ND Neuro: CN II-XII Grossly intact, no asterixis Psych: cooperative, appropriate mood and affect Skin: C/D/I, no rash Access: RIJ tunneled catheter Constitutional: Initial Vital Signs Temperature (C) 36.5 C 03/25/17 12:27 Respiratory Rate 16 03/25/17 12:27 Blood Pressure 170/79 H 03/25/17 12:27 O2 Sat (%) 97 03/25/17 12:27 O2 Delivery Mode Room Air Allergies/Adverse Reactions: No Known Allergies Allergy (Verified 03/18/17 15:10) Home Medications: Medication Instructions Recorded Atorvastatin Calcium [Lipitor 40 80 mg PO DAILY 10/30/16 mg (*)] Nitroglycerin [Nitrostat 0.4 mg 0.4 mg SL AD PRN 10/30/16 (*)] Sodium Bicarbonate [Na Bicarb] 1,300 mg PO DAILY 10/30/16 Pantoprazole Sodium [Protonix 40mg 40 mg PO DAILY 12/03/16 (*)] Folic Acid/Vit B Com W/C 1 each PO DAILY 01/07/17 [Nephro-Peyton Rx] Cholecalciferol Vit D3 [Vitamin D3 50,000 unit PO TU 01/21/17 (*)] amLODIPine BESYLATE [Norvasc 10 mg 10 mg PO DAILY #30 tab 02/20/17 (*)] Calcium Carbonate [Tums 500MG (*)] 1,500 mg PO TIDMEAL 03/11/17 hydrALAZINE [Apresoline 50 mg (*)] 50 mg PO DAILY 03/11/17 Lab and Imaging 03/25/17 14:03 03/25/17 14:03 WBC 7.16 10^3/uL (3.80-9.50) 03/25/17 14:03 RBC 3.87 10^6/uL (4.40-6.38) L 03/25/17 14:03 Hgb 11.7 g/dL (13.7-17.5) L 03/25/17 14:03 Hct 35.5 % (40.0-51.0) L 03/25/17 14:03 MCV 91.7 fL (81.5-99.8) 03/25/17 14:03 MCH 30.2 pg (27.9-34.1) 03/25/17 14:03 MCHC 33.0 g/dL (32.4-36.7) 03/25/17 14:03 RDW 15.7 % (11.5-15.2) H 03/25/17 14:03 Plt Count 174 10^3/uL (150-400) 03/25/17 14:03 MPV 10.5 fL (8.7-11.7) 03/25/17 14:03 Neut % (Auto) 68.4 % (39.3-74.2) 03/25/17 14:03 Lymph % (Auto) 14.2 % (15.0-45.0) L 03/25/17 14:03 Clayton % (Auto) 5.4 % (4.5-13.0) 03/25/17 14:03 Eos % (Auto) 10.6 % (0.6-7.6) H 03/25/17 14:03 Baso % (Auto) 1.0 % (0.3-1.7) 03/25/17 14:03 Nucleat RBC Rel Count 0.0 % (0.0-0.2) 03/25/17 14:03 Absolute Neuts (auto) 4.89 10^3/uL (1.70-6.50) 03/25/17 14:03 Absolute Lymphs (auto) 1.02 10^3/uL (1.00-3.00) 03/25/17 14:03 Absolute Monos (auto) 0.39 10^3/uL (0.30-0.80) 03/25/17 14:03 Absolute Eos (auto) 0.76 10^3/uL (0.03-0.40) H 03/25/17 14:03 Absolute Basos (auto) 0.07 10^3/uL (0.02-0.10) 03/25/17 14:03 Absolute Nucleated RBC 0.00 10^3/uL (0-0.01) 03/25/17 14:03 Immature Gran % 0.4 % (0.0-1.1) 03/25/17 14:03 Immature Gran # 0.03 10^3/uL (0.00-0.10) 03/25/17 14:03 Sodium 143 mEq/L (134-144) 03/25/17 14:03 Potassium 6.8 mEq/L (3.5-5.2) H* 03/25/17 14:03 Chloride 102 mEq/L (97-110) 03/25/17 14:03 Carbon Dioxide 13 mEq/l (22-31) L 03/25/17 14:03 Anion Gap 28 mEq/L (8-16) H 03/25/17 14:03 BUN 122 mg/dL (7-23) H* 03/25/17 14:03 Creatinine 15.9 mg/dL (0.7-1.3) H* 03/25/17 14:03 Estimated GFR 3 03/25/17 14:03 Glucose 112 mg/dL (70-100) H 03/25/17 14:03 Calcium 8.9 mg/dL (8.5-10.4) 03/25/17 14:03
[2017-03-25] MEDS ORDERED: ACETAMINOPHEN 325 MG TAB PO PRN (16:10)
[2017-03-25] MEDS ORDERED: ZOLPIDEM TARTRATE 5 MG TAB PO PRN (16:10)
[2017-03-25] MEDS ORDERED: ONDANSETRON DISINTEGRATING 4 MG TAB PO PRN (16:10)
[2017-03-25] MEDS ORDERED: NITROGLYCERIN 0.4 MG BTL SL PRN (16:18)
--- NOTE | 2017-03-25 16:23 | PDGENHP ---
History and Physical History and Physical: HISTORY AND PHYSICAL CC:Loose stools, needing dialysis HISTORY: This patient is a 66-year-old man with end-stage renal disease on chronic dialysis. However he is unable to receive dialysis at the dialysis unit in the outpatient setting due to no workable insurance coverage. The patient comes in generally once a week here and we dialyze him here. The hospital is the only place he can have his dialysis. He was last treated here on 1 week ago. At this time his main complaint is minor ankle swelling and some chronic skin wounds at the right ankle related to that. He has been putting dressings on these.. There is no abdominal pain, fever or bleeding and he is eating well with no nausea. No shortness of breath or chest pain no palpitations. He has no trouble with his dialysis catheter. There are no fever symptoms. 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 Does not use tobacco or significant alcohol or street drugs MEDICATIONS: The patients list has been reconciled by our clinical pharmacist in the EMR. I have reviewed the list and ordered appropriate medicines. PHYSICAL EXAMINATION: Vital Signs: mild systolic hypertension otherwise stable without fever Financial Aid Counselor: sinus rhythm Examination: General: alert, oriented, good mentation, relaxed Skin: warm, dry, good color, no rash His IJ catheter is in normal position no signs of infection HEENT: normal Neck: no mass or jvd Resps: relaxed Lungs: clear breath sounds Heart: regular, no murmur Abdomen: soft, nondistended, nontender, +BS, no mass Upper Extremities: normal Lower Extremities: there is very mild bilateral pitting edema at the ankles No Bleeding or bruising Neurologic: normal speech/language, normal asbestos coverer, no focal weakness IV site: looks normal LABORATORY DATA: Creat 15.9, K 6.8 ASSESSMENT: # End-stage renal disease requiring dialysis, unable to receive dialysis in the outpatient setting # Hyperkalemia, mild for him # chronic stasis dermatitis right ankle with fissuring of the skin some open areas but no evidence of infection at this time, present on admission PLANS: The patient will be brought in on observation status dialysis today and in the am and likely discharge tomorrow I have redressed his ankle wound heal need to continue outpatient wound care for that. This can be reviewed at the dialysis unit as well.
[2017-03-25] MEDS: CALCIUM CARBONATE 500 MG CHEWABLE TAB PO SCH (18:27)
[2017-03-25] MEDS ORDERED: HEPARIN 50,000 UNIT/10 ML VIAL ONE (18:32)
[2017-03-26 04:58] LABS: ANION GAP 18 mEq/L (8-16); CALCIUM 8.1 mg/dL (8.5-10.4); CARBON DIOXIDE 20 mEq/l (22-31); CHLORIDE 101 mEq/L (97-110); GLOMERULAR FILTRATION RATE 5; GLUCOSE 99 mg/dL (70-100); MAGNESIUM 1.6 mg/dL (1.6-2.3); SODIUM 139 mEq/L (134-144)
[2017-03-26] MEDS ORDERED: ATORVASTATIN CALCIUM 40 MG TAB PO SCH (09:00)
[2017-03-26] MEDS ORDERED: NEPHROVITE FOLIC ACID/VIT B&C 1 TAB PO SCH (09:00)
[2017-03-26] MEDS ORDERED: SODIUM BICARBONATE 650 MG TAB PO SCH (09:00)
[2017-03-26] MEDS ORDERED: PANTOPRAZOLE SODIUM 40 MG TAB PO SCH (09:00)
[2017-03-26] MEDS ORDERED: CHOLECALCIFEROL VIT D3 50,000 UNIT CAP PO SCH (09:00)
[2017-03-26] MEDS: CALCIUM CARBONATE 500 MG CHEWABLE TAB PO SCH ×3 (09:44→17:29)
--- NOTE | 2017-03-26 10:34 | SOAPPROG ---
SOEDY Progress Note Assessment/Plan: Assessment/Plan: ESRD: lacks benefits for regular outpatient HD. - HD done yesterday. - Pt seen getting HD again today. - Pt to return to ER prn emergent dialysis needs. Hyperkalemia: improved with HD, will continue to modulate on HD. Metabolic acidosis: improving with HD. Hypervolemia: will modulate further with HD today. Subjective: No acute events overnight. Pt had HD yesterday and tolerated fine, getting HD again today. Objective: Vital Signs Temp Pulse Resp BP Pulse Ox 36.7 C 55 L 14 198/118 H 96 03/26/17 04:39 03/26/17 04:39 03/26/17 04:39 03/26/17 09:44 03/26/17 04:39 Laboratory Results 03/26/17 04:20 03/25/17 03/26/17 03/27/17 05:59 05:59 05:59 Intake Total 150 Output Total 200 Balance -50 General: alert and oriented, no acute distress Eyes; EOMI, PERRL OP: Clear CV: RRR ResP; nonlabored respirations on RA Abd: Soft, NT Ext: +2 edema BLE Neuro: CN II-XII Grossly intact, no asterixis Psych; cooperative, appropriate mood and affect Access: RIJ tunneled catheter ICD10 Worksheet Patient Problems: Problems Problem Status Onset Hyperkalemia Acute Kidney failure Acute Abdominal pain Acute Acute renal failure Acute Acute upper GI bleed Acute Anemia Acute Anemia associated with acute blood loss Acute Anemia, chronic disease Acute Chronic renal failure Acute Diarrhea Acute ESRD (end stage renal disease) Acute End stage renal disease Acute End stage renal disease Acute End stage renal disease Acute Hyperkalemia Acute Hyperkalemia Acute Hyperkalemia Acute Hyperkalemia Acute Hyperkalemia Acute Hyperkalemia Acute Hyperkalemia Acute Hyperkalemia Acute Hyperkalemia Acute Hyperkalemia, diminished renal excretion Acute Hypertension Acute Hypocalcemia Acute Kidney failure Acute Kidney failure Acute Metabolic acidosis Acute Renal failure Acute Shingles (herpes zoster) polyneuropathy Acute Uremia Acute Uremia Acute
[2017-03-26 12:31] VITALS: BP 182/97; PULSE 65; RESP 18; TEMP 96.6; O2SAT 98
[2017-03-26] MEDS ORDERED: HEPARIN 50,000 UNIT/10 ML VIAL ONE (13:49)
--- NOTE | 2017-03-27 00:28 | GDS ---
[f rep st] DISCHARGE SUMMARY DISCHARGE DIAGNOSES: 1. End-stage renal disease requiring frequent hospitalizations for emergent dialysis. 2. Hyperkalemia. 3. Coronary artery disease. 4. History of gastrointestinal bleed. 5. Anemia secondary to chronic kidney disease. 6. Hypertension. CONSULTANTS: Dr. Krystal Wolfe, Nephrology. HISTORY: For details, please see dictated history and physical dated March 25. In brief, the patient is a 67-year-old male with history of end-stage renal disease, who unfortunately lacks outpat ient dialysis benefits and presented to the emergency department for emergent dialysis needs. He was admitted to the hospital for further management. HOSPITAL COURSE: Patient was admitted to the medical-surgical unit. He presented with a creatinine of 15.9, BUN 122, and potassium of 6.8. He underwent dialysis per the renal service the evening of a dmission and had repeat dialysis the following day. His electrolytes normalized. His acidemia impro bessie. He was continued on oral sodium bicarb. He felt well on the day of discharge and wished to go home. DISPOSITION: Patient is discharged home in stable condition. FOLLOWUP: 1. Patient will return to the emergency department for ongoing dialysis needs. 2. Follow up with Dr. Jacqueline Rodriges, primary care. DISCHARGE MEDICATIONS: Please see [facility] for complete updated outpatient medication list. There a re no new medications on discharge. He will continue all previous medications as prescribed. /[id number]/MODL
== END 2017-03-26 17:34 | disposition home or self-care (01) | DRG 640 ==
LOC: OBSVTOIN 14:28 → F1N 15:14
PROVIDERS: ADMIT Internal Medicine; ATTEND Internal Medicine
PROC: 5A1D60Z (ICD-10-PCS; principal; 2017-03-25)
DX: E87.5 Hyperkalemia (principal); I12.0 Hypertensive chronic kidney disease with stage 5 chronic kidney disease or end stage renal disease; N18.6 End stage renal disease; I25.10 Atherosclerotic heart disease of native coronary artery without angina pectoris; D63.1 Anemia in chronic kidney disease; I87.2 Venous insufficiency (chronic) (peripheral); M10.9 Gout, unspecified; Z95.5 Presence of coronary angioplasty implant and graft; Z99.2 Dependence on renal dialysis; Z87.891 Personal history of nicotine dependence
CPT/HCPCS: J1644

== ENCOUNTER 2017-04-01 13:44 | Inpatient (IN) | payer MEDICAID, OTHER ==
--- NOTE | 2017-04-01 14:37 | EDPHY ---
H & P Time Seen by Provider: 04/01/17 14:35 HPI/ROS: CHIEF COMPLAINT: Diarrhea, here for dialysis HISTORY OF PRESENT ILLNESS: 67-year-old man with end-stage renal disease and no access to outpatient dialysis last was dialyzed on March 25. Arrives with diarrhea which is his usual symptom when he gets uremic. REVIEW OF SYSTEMS: Eye: no change in vision ENT: no sore throat Cardiac: no chest pain or syncope Pulmonary: no cough or SOB Abdomen: no vomiting or abdominal pain Musculoskeletal: no back pain Skin: Chronic ankle rash unchanged Neuro: no headache Constitutional: no fever : no urinary symptoms A comprehensive 10 point review of systems is otherwise negative aside from elements mentioned in the history of present illness. PAST MEDICAL HISTORY: Includes gout, hypertension, anemia, coronary disease with stenting. History of GI bleed, end-stage renal disease on dialysis. Social history: Continues to work, did a 10 hour shift yesterday General Appearance: Alert and conversant, cooperative. Eyes: No scleral icterus. ENT, Mouth: Normal mucous membranes. Respiratory: Normal respiratory effort, breath sounds equal, lungs are clear to auscultation. Cardiovascular: Regular rate and rhythm. Gastrointestinal: Abdomen is soft and non tender. Neurological: Alert and oriented x3. Normally conversant. Face symmetric, normal movement and sensation in all extremities. Skin: Chronic right ankle rash, unchanged Musculoskeletal: No peripheral edema and no joint swelling. Psychiatric: Not agitated. Emergency Department course/MDM: I-STAT, EKG, labs. 1513: Potassium 7.5, admit to hospitalist Dr. Ruiz with [facility] consult. Plan to go from emergency department to get dialyzed this afternoon. Discussed with [facility] Dr. Wolfe at 1528. Smoking Status: Former smoker Constitutional: Initial Vital Signs Temperature (C) 36.4 C 04/01/17 14:00 Heart Rate 80 04/01/17 14:00 Respiratory Rate 16 04/01/17 14:00 Blood Pressure 156/75 H 04/01/17 14:00 O2 Sat (%) 98 04/01/17 14:00 O2 Delivery Mode Room Air Allergies/Adverse Reactions: No Known Allergies Allergy (Verified 04/01/17 14:09) Home Medications: Medication Instructions Recorded Atorvastatin Calcium [Lipitor 40 80 mg PO DAILY 10/30/16 mg (*)] Nitroglycerin [Nitrostat 0.4 mg 0.4 mg SL AD PRN 10/30/16 (*)] Sodium Bicarbonate [Na Bicarb] 1,300 mg PO DAILY 10/30/16 Pantoprazole Sodium [Protonix 40mg 40 mg PO DAILY 12/03/16 (*)] Folic Acid/Vit B Com W/C 1 each PO DAILY 01/07/17 [[facility]] Cholecalciferol Vit D3 [Vitamin D3 50,000 unit PO TU 01/21/17 (*)] amLODIPine BESYLATE [Norvasc 10 mg 10 mg PO DAILY #30 tab 02/20/17 (*)] Calcium Carbonate [Tums 500MG (*)] 1,500 mg PO TIDMEAL 03/11/17 hydrALAZINE [Apresoline 50 mg (*)] 50 mg PO DAILY 03/11/17 Medical Decision Making - Diagnostics EKG Interpretation: 12-lead EKG interpreted by me; official reading is in trace master. My interpretation is sinus rhythm rate 58 normal intervals. Consult/Admit Bed Type: [place] [id number] - Data Points Laboratory Results: Laboratory Results 04/01/17 14:55 04/01/17 14:55 04/01/17 04/01/17 14:55 14:55 WBC 6.80 10^3/uL 10^3/uL (3.80-9.50) RBC 3.30 10^6/uL L 10^6/uL (4.40-6.38) Hgb 9.9 g/dL L g/dL (13.7-17.5) Hct 30.0 % L % (40.0-51.0) MCV 90.9 fL fL (81.5-99.8) MCH 30.0 pg pg (27.9-34.1) MCHC 33.0 g/dL g/dL (32.4-36.7) RDW 15.5 % H % (11.5-15.2) Plt Count 121 10^3/uL L 10^3/uL (150-400) MPV 10.6 fL fL (8.7-11.7) Neut % (Auto) 67.7 % % (39.3-74.2) Lymph % (Auto) 14.7 % L % (15.0-45.0) Millard % (Auto) 6.3 % % (4.5-13.0) Eos % (Auto) 10.0 % H % (0.6-7.6) Baso % (Auto) 1.0 % % (0.3-1.7) Nucleat RBC Rel Count 0.0 % % (0.0-0.2) Absolute Neuts (auto) 4.60 10^3/uL 10^3/uL (1.70-6.50) Absolute Lymphs (auto) 1.00 10^3/uL 10^3/uL (1.00-3.00) Absolute Monos (auto) 0.43 10^3/uL 10^3/uL (0.30-0.80) Absolute Eos (auto) 0.68 10^3/uL H 10^3/uL (0.03-0.40) Absolute Basos (auto) 0.07 10^3/uL 10^3/uL (0.02-0.10) Absolute Nucleated RBC 0.00 10^3/uL 10^3/uL (0-0.01) Immature Gran % 0.3 % % (0.0-1.1) Immature Gran # 0.02 10^3/uL 10^3/uL (0.00-0.10) Sodium 139 mEq/L mEq/L (134-144) Potassium 7.4 mEq/L H* mEq/L (3.5-5.2) Chloride 101 mEq/L mEq/L (97-110) Carbon Dioxide 14 mEq/l L mEq/l (22-31) Anion Gap 24 mEq/L H mEq/L (8-16) BUN 133 mg/dL H* mg/dL (7-23) Creatinine 16.6 mg/dL H* mg/dL (0.7-1.3) Estimated GFR 3 Glucose 98 mg/dL mg/dL (70-100) Calcium 8.4 mg/dL L mg/dL (8.5-10.4) Departure - Departure Disposition: [facility] Clinical Impression: Hyperkalemia Chronic renal failure Qualifiers: Chronic kidney disease stage: unspecified stage Qualified Code(s): N18.9 - Chronic kidney disease, unspecified Condition: Good
--- NOTE | 2017-04-01 15:04 | CPEKG ---
Heart Rate: 58 RR Interval: 1034 P-R Interval: 188 QRSD Interval: 104 QT Interval: 436 QTC Interval: 429 P Zeeland: 67 QRS Zeeland: 66 T Wave Zeeland: 71 EKG Severity - NORMAL ECG - EKG Impression: SINUS RHYTHM Electronically Signed By: Esteban Teran 01-Apr-2017 15:15:19
[2017-04-01 15:07] LABS: % IMMATURE GRANULYOCYTES 0.3 % (0.0-1.1); ABSOLUTE IMMATURE GRANULOCYTES 0.02 10^3/uL (0.00-0.10); ADD DIFF? NO; ADD MORPH? NO; ADD SCAN? NO; ATYPICAL LYMPHOCYTE FLAG 0 (0-99); FRAGMENT RBC FLAG 0 (0-99); HEMOGLOBIN 9.9 g/dL (13.7-17.5); LEFT SHIFT FLG 0 (0-99); LIPEMIA HEMOLYSIS FLAG 80 (0-99); MEAN CELL VOLUME 90.9 fL (81.5-99.8); MEAN PLATELET VOLUME 10.6 fL (8.7-11.7); PLATELET CLUMPS FLAG 0 (0-99); PLATELET COUNT 121 10^3/uL (150-400); RED CELL DISTRIBUTION WIDTH 15.5 % (11.5-15.2)
[2017-04-01 15:19] LABS: ANION GAP 24 mEq/L (8-16); CALCIUM 8.4 mg/dL (8.5-10.4); CARBON DIOXIDE 14 mEq/l (22-31); CHLORIDE 101 mEq/L (97-110); GLUCOSE 98 mg/dL (70-100); SODIUM 139 mEq/L (134-144)
[2017-04-01 15:39] LABS: POTASSIUM 7.4 mEq/L (3.5-5.2)
[2017-04-01 15:40] LABS: CREATININE 16.6 mg/dL (0.7-1.3); GLOMERULAR FILTRATION RATE 3
[2017-04-01] MEDS ORDERED: ACETAMINOPHEN 325 MG TAB PO PRN (16:58)
[2017-04-01] MEDS ORDERED: ONDANSETRON DISINTEGRATING 4 MG TAB PO PRN (16:58)
[2017-04-01] MEDS ORDERED: ONDANSETRON 4 MG/2 ML VIAL IVP PRN (16:58)
[2017-04-01] MEDS ORDERED: oxyCODONE IR 5 MG TAB PO PRN (16:58)
--- NOTE | 2017-04-01 17:50 | GHP ---
[f rep st] HISTORY AND PHYSICAL DATE OF ADMISSION: 04/01/2017 CHIEF COMPLAINT: Diarrhea. HISTORY: This is a 67-year-old man with a past medical history of end-stage renal disease, without a ccess to outpatient hemodialysis, who presents with diarrhea and fatigue similar to his usual symptom s when he is in need of urgent hemodialysis. He was last here approximately 1 week ago. He denies a ny shortness of breath. He denies any chest pain. He does have some chronic lower extremity swellin g, right greater than left, which he thinks is a little bit worse than usual. No other recent change s in his health. PAST MEDICAL HISTORY: Includes: 1. End-stage renal disease, without access to routine outpatient dialysis. 2. Chronic stasis dermatitis with chronic wounds. 3. Coronary artery disease. 4. History of gastrointestinal bleed. 5. GERD. 6. Anemia of chronic kidney disease. 7. Hypertension. 8. Esophagitis. SURGICAL HISTORY: Tunneled right dialysis catheter in jugular vein. FAMILY HISTORY: Includes coronary artery disease, stroke, and hypertension. SOCIAL HISTORY: Patient originally from [place] but living in [place] many years. He is a nonsmoker, nondrinker, nondrug user. REVIEW OF SYSTEMS: 10-point review of systems obtained and negative, except as per HPI. HOME MEDICATIONS: Include: 1. Hydralazine. 2. Amlodipine. 3. Sodium bicarb. 4. Pantoprazole. 5. Nitroglycerin. 6. Folic acid. 7. Cholecalciferol. 8. Calcium carbonate. 9. Atorvastatin. ALLERGIES: No known drug allergies. PHYSICAL EXAMINATION: VITAL SIGNS: BP 156/75, heart rate 80, respiratory rate 16. O2 sat is 98% on room air. Temperature is 36.4. GENERAL APPEARANCE: Well-developed/well-nourished man. He is awak e and alert. He is in no acute distress. EYES: Anicteric. HENT: Oropharynx clear. CARDIOVASCULA R: RRR, no MRG. PULMONARY: CTA bilaterally. ABDOMEN: Soft, nontender, nondistended. EXTREMITIES : Right lower extremity with 1+ pitting edema and chronic venous stasis changes. NEURO/PSYCH: Orie nted and appropriate, pleasant. CLINICAL DATA: Labs reviewed, significant for a hematocrit of 30, white count of 6.8, K is 7.4 (whic h is the highest it has been in our system for at least the last month), BUN 133, creatinine of 16.6. EKG personally reviewed and interpreted, showing sinus rhythm, no significant T-wave abnormalities. ASSESSMENT AND PLAN: 67-year-old man with end-stage renal disease and no access to outpatient hemodi alysis, who presents with life-threatening hyperkalemia. 1. Hyperkalemia. Again, this is severe and life-threatening. Plan is to take him urgently to hemod ialysis. Should this be delayed, he will be treated with insulin, bicarb, albuterol, Kayexalate, christian cium gluconate. 2. End-stage renal disease. Again, without access to outpatient dialysis, given his citizenship [facility]. He has been coming to the hospital routinely for care. He was last seen here on 03/26/2017. 3. Diarrhea. This is his usual clinical symptom related to need for dialysis and hyperkalemia. Thi s has largely resolved. We will monitor. 4. Hypertension. We will continue his home regimen. Suspect this is largely volume related. 5. Gastroesophageal reflux disease. Continue PPI. 6. Venous stasis. He does have some increased right lower extremity swelling compared to the left, but he states this is at his baseline. Will monitor. Suspect this will improve with volume manageme nt. 7. Inpatient status. Patient will need greater than a 48-hour stay for evaluation and management of above. 8. Patient is new to my care. Old records reviewed. Summary is as per HPI and Past Medical History . Care plan reviewed with ER physician and Renal, including plans for dialysis. /[id number]/MODL
--- NOTE | 2017-04-01 18:52 | SOAPPROG ---
JACQUELINE Progress Note Assessment/Plan: Assessment:Plan: [id number] -unstable -plan for daily dialysis ESRD-no benefits for outpatient treatment -not undergoing regular dialysis -this is an inherently unstable and life-threatening condition, more obvious today due to the severity of the electrolyte disorder today -his azotemia and other disturbances in his homeostasis on previous admissions have been similarly grave -prior complications of dialysis dysequilibrium -plan for daily therapy while inpatient -his presentations to the hospital are only going to become more precarious as time goes on and should be treated with care Volume Overload-UF with dialysis Access-stable Dispo-pending 04/01/17 18:52 Subjective: tolerating dialysis Objective: Vital Signs Temp Pulse Resp BP Pulse Ox 36.8 C 81 18 161/78 H 95 04/01/17 17:11 04/01/17 17:11 04/01/17 17:11 04/01/17 17:11 04/01/17 17:11 Physical Exam - Physical Exam General Appearance: alert, no apparent distress EENT: normal ENT inspection Neck: normal inspection Respiratory: lungs clear, normal breath sounds, No respiratory distress Cardiac/Chest: regular rate, rhythm, No diastolic murmur, No systolic murmur Abdomen: normal bowel sounds, non-tender, soft Back: Normal inspection Extremities: swelling Neuro/Psych: no motor/sensory deficits, alert, normal mood/affect ICD10 Worksheet Patient Problems: Problems Problem Status Onset Chronic renal failure Acute Hyperkalemia Acute Abdominal pain Acute Acute renal failure Acute Acute upper GI bleed Acute Anemia Acute Anemia associated with acute blood loss Acute Anemia, chronic disease Acute Diarrhea Acute ESRD (end stage renal disease) Acute End stage renal disease Acute End stage renal disease Acute End stage renal disease Acute Hyperkalemia Acute Hyperkalemia Acute Hyperkalemia Acute Hyperkalemia Acute Hyperkalemia Acute Hyperkalemia Acute Hyperkalemia Acute Hyperkalemia Acute Hyperkalemia Acute Hyperkalemia, diminished renal excretion Acute Hypertension Acute Hypocalcemia Acute Kidney failure Acute Kidney failure Acute Kidney failure Acute Metabolic acidosis Acute Renal failure Acute Shingles (herpes zoster) polyneuropathy Acute Uremia Acute Uremia Acute
[2017-04-01] MEDS ORDERED: HEPARIN 50,000 UNIT/10 ML VIAL ONE (20:51)
[2017-04-01] MEDS ORDERED: NITROGLYCERIN 0.4 MG BTL SL PRN (20:55)
[2017-04-02 04:27] LABS: % IMMATURE GRANULYOCYTES 0.3 % (0.0-1.1); ABSOLUTE IMMATURE GRANULOCYTES 0.01 10^3/uL (0.00-0.10); ADD DIFF? NO; ADD MORPH? NO; ADD SCAN? NO; ATYPICAL LYMPHOCYTE FLAG 0 (0-99); FRAGMENT RBC FLAG 0 (0-99); HEMATOCRIT 27.3 % (40.0-51.0); HEMOGLOBIN 9.4 g/dL (13.7-17.5); LEFT SHIFT FLG 0 (0-99); LIPEMIA HEMOLYSIS FLAG 90 (0-99); MEAN CELL HEMOGLOBIN 30.7 pg (27.9-34.1); MEAN CELL HEMOGLOBIN CONCENTR. 34.4 g/dL (32.4-36.7); MEAN CELL VOLUME 89.2 fL (81.5-99.8); MEAN PLATELET VOLUME 10.2 fL (8.7-11.7); PLATELET CLUMPS FLAG 0 (0-99); PLATELET COUNT 105 10^3/uL (150-400); RED BLOOD CELL COUNT 3.06 10^6/uL (4.40-6.38); RED CELL DISTRIBUTION WIDTH 15.5 % (11.5-15.2)
[2017-04-02 04:46] LABS: ANION GAP 17 mEq/L (8-16); CALCIUM 8.3 mg/dL (8.5-10.4); CARBON DIOXIDE 20 mEq/l (22-31); CHLORIDE 99 mEq/L (97-110); GLOMERULAR FILTRATION RATE 5; GLUCOSE 103 mg/dL (70-100); POTASSIUM 5.2 mEq/L (3.5-5.2); SODIUM 136 mEq/L (134-144)
[2017-04-02 04:47] LABS: CREATININE 10.4 mg/dL (0.7-1.3)
[2017-04-02] MEDS: PANTOPRAZOLE SODIUM 40 MG TAB PO SCH (08:38)
[2017-04-02] MEDS: SODIUM BICARBONATE 650 MG TAB PO SCH (08:38)
[2017-04-02] MEDS: CALCIUM CARBONATE 500 MG CHEWABLE TAB PO SCH ×3 (08:38→19:13)
[2017-04-02] MEDS ORDERED: CHOLECALCIFEROL VIT D3 50,000 UNIT CAP PO SCH (09:00)
--- NOTE | 2017-04-02 09:14 | ASMTCMCOM ---
CM Note CM Note Notes: 04/01/2017 Case Management Note: Reviewed chart, spoke with RN. Pt lives w/son and has strong family support. Pt is well known to [facility] and admitted for emergency dialysis. Case Management d/c poc: anticipate home independently when medically stable Case Management available should needs change. Date Signed: 04/02/2017 09:13 AM Electronically Signed By:Shanelle Zamorano RN
--- NOTE | 2017-04-02 09:28 | SOAPPROG ---
SOEDY Progress Note Assessment/Plan: Assessment/Plan: ESRD: lacks benefits for regular outpatient dialysis. - Pt had HD yesterday. - Pt seen getting HD again today. - Pt will return to ER prn emergent symptoms. Hyperkalemia: improved with HD, will modulate further with HD. In future, would recommend medical treatment prior to dialysis for serious hyperkalemia to avoid complications. Metabolic acidosis: improved with HD, will modulate further with HD. Hypervolemia: will modulate further with HD. Subjective: No acute events overnight. Pt states he tolerated HD well yesterday with no issues. He is getting dialysis now, feeling a bit dizzy, not hypotensive. He denies any N/V. Objective: Vital Signs Temp Pulse Resp BP Pulse Ox 36.6 C 69 16 151/70 H 96 04/02/17 04:00 04/02/17 04:00 04/02/17 04:00 04/02/17 04:00 04/02/17 04:00 Laboratory Results 04/02/17 04:09 04/02/17 04:09 04/01/17 04/02/17 04/03/17 05:59 05:59 05:59 Intake Total 200 Balance 200 General: alert and oriented, no acute distress Eyes; EOMI, PERRL OP: clear CV: RRR Resp: nonlabored respirations on RA Abd: Soft, NT/ND Ext: +1 edema BLE Neuro: CN II-XII grossly intact, no asterixis Psych: cooperative, appropriate mood and affect ICD10 Worksheet Patient Problems: Problems Problem Status Onset Chronic renal failure Acute Hyperkalemia Acute Abdominal pain Acute Acute renal failure Acute Acute upper GI bleed Acute Anemia Acute Anemia associated with acute blood loss Acute Anemia, chronic disease Acute Diarrhea Acute ESRD (end stage renal disease) Acute End stage renal disease Acute End stage renal disease Acute End stage renal disease Acute Hyperkalemia Acute Hyperkalemia Acute Hyperkalemia Acute Hyperkalemia Acute Hyperkalemia Acute Hyperkalemia Acute Hyperkalemia Acute Hyperkalemia Acute Hyperkalemia Acute Hyperkalemia, diminished renal excretion Acute Hypertension Acute Hypocalcemia Acute Kidney failure Acute Kidney failure Acute Kidney failure Acute Metabolic acidosis Acute Renal failure Acute Shingles (herpes zoster) polyneuropathy Acute Uremia Acute Uremia Acute
--- NOTE | 2017-04-02 10:21 | CPEKG ---
Heart Rate: 55 RR Interval: 1091 P-R Interval: 164 QRSD Interval: 102 QT Interval: 468 QTC Interval: 448 P Roach: 70 QRS Roach: 67 T Wave Roach: 68 EKG Severity - NORMAL ECG - EKG Impression: SINUS RHYTHM Electronically Signed By: Uday mAaya 02-Apr-2017 11:22:10
[2017-04-02 10:37] LABS: MAGNESIUM 1.8 mg/dL (1.6-2.3); POTASSIUM 3.5 mEq/L (3.5-5.2)
[2017-04-02] MEDS: ATORVASTATIN CALCIUM 40 MG TAB PO SCH (11:19)
[2017-04-02] MEDS ORDERED: HEPARIN 50,000 UNIT/10 ML VIAL ONE (11:30)
--- NOTE | 2017-04-02 12:05 | HOSPPROG ---
Hospitalist Progress Note Assessment/Plan: Assessment: 67-year-old male presents with acute uremic symptoms in the setting of hyperkalemia, end-stage renal disease Plan: 1. Uremia. Acute, primary reason for patient's presentation, treated with hemodialysis 2. Hyperkalemia. Acute, severe, patient has received 2 rounds of hemodialysis, will repeat serum potassium level in a.m. -peaked T-waves have resolved on EKG, personally interpreted 3. End-stage renal disease. Patient presented for symptoms related to end-stage renal disease and inability access outpatient care -nephrology consultation appreciated -the patient has received 2 rounds of hemodialysis, will plan on 3rd tomorrow a.m. then discharge 4. Hypotension. Acute, new problem this provider, further workup indicated. The patient presented with hypertension with systolic blood pressures in the 150 -180 range, secondary to hypovolemia with end-stage renal disease, then he experienced symptomatic drop in his blood pressure during hemodialysis most likely secondary to fluid shifts with a systolic blood pressure around 100, with associated diaphoresis -EKG performed, did not demonstrate any evidence of acute coronary event -will continue with some monitor him on telemetry -repeat labs performed at hemodialysis, assessment available -given these fluid shifts, would recommend continuing care throughout the course of today, providing hemodialysis tomorrow, and then discharge if everything stable 5. Metabolic acidosis. Acute on chronic, secondary to end-stage renal disease, continue patient on his oral sodium bicarb 6. Hypertension. Chronic, secondary to end-stage renal disease, continue patient on his antihypertensives as an outpatient, hold any further antihypertensive today given his episode of hypotension 7. Chronic diastolic congestive heart failure. No evidence of acute exacerbation, the asymmetric lower extremity edema on the right is most likely secondary to fluid accumulation from end-stage renal disease -reviewed outside records including 11/06/2016 right lower extremity ultrasound demonstrating no DVT, patient reports that is been chronically edematous for quite some time -no indication for further lower extremity ultrasounds at this time -continue patient's home medications Diet. Renal Prophylaxis. High risk patient, heparin subcu Code. Full Disposition. Anticipated discharge is 04/03/2017, pending stability of the above. High risk of worsening morbidity and/or mortality secondary to the issues as outlined above. Subjective: Patient experienced diaphoresis during dialysis today Objective: Vital Signs Temp Pulse Resp BP Pulse Ox 36.3 C 59 L 14 159/69 H 98 09/26/17 11:43 04/02/17 11:43 04/02/17 11:43 04/02/17 11:43 04/02/17 11:43 Laboratory Results 04/02/17 04:09 04/02/17 10:13 04/01/17 04/02/17 04/03/17 05:59 05:59 05:59 Intake Total 200 Balance 200 - Pending Discharge Pending Discharge Within 24 Hours: Yes Pending Discharge Date: 04/03/17 Pending Discharge Time: 11:00 - Physical Exam Constitutional: no apparent distress, not in pain, chronically ill appearing, No uncomfortable Cardiovascular: systolic murmur (1/6 at all valve location), edema (1+ right lower extremity), No irregularly irregular, No tachycardia Respiratory: no respiratory distress, no rales or rhonchi, inspiratory crackles (Faint in the bilateral bases), No reduced air movement, No respiratory distress Gastrointestinal: normoactive bowel sounds, soft, non-tender abdomen, no palpable masses Skin: other (No erythema, no induration, no ecchymoses, no tenderness around the right chest catheter) Neurologic: AAOx3, sensation intact bilaterally Psychiatric: interacting appropriately, not anxious, not encephalopathic, thought process linear ICD10 Worksheet Patient Problems: Problems Problem Status Onset Chronic renal failure Acute Hyperkalemia Acute Abdominal pain Acute Acute renal failure Acute Acute upper GI bleed Acute Anemia Acute Anemia associated with acute blood loss Acute Anemia, chronic disease Acute Diarrhea Acute ESRD (end stage renal disease) Acute End stage renal disease Acute End stage renal disease Acute End stage renal disease Acute Hyperkalemia Acute Hyperkalemia Acute Hyperkalemia Acute Hyperkalemia Acute Hyperkalemia Acute Hyperkalemia Acute Hyperkalemia Acute Hyperkalemia Acute Hyperkalemia Acute Hyperkalemia, diminished renal excretion Acute Hypertension Acute Hypocalcemia Acute Kidney failure Acute Kidney failure Acute Kidney failure Acute Metabolic acidosis Acute Renal failure Acute Shingles (herpes zoster) polyneuropathy Acute Uremia Acute Uremia Acute
[2017-04-02] MEDS: NEPHROVITE FOLIC ACID/VIT B&C 1 TAB PO SCH (13:05)
[2017-04-02] MEDS ORDERED: BACLOFEN 10 MG TAB PO ONE (15:45)
[2017-04-02 18:37] LABS: IONIZED CALCIUM 0.99 MMOL/L (1.12-1.30)
[2017-04-03 05:36] LABS: ALANINE AMINOTRANSFERASE 20 IU/L (21-72); ALKALINE PHOSPHATASE 162 IU/L (38-126); ANION GAP 17 mEq/L (8-16); ASPARTATE AMINOTRANSFERASE 13 IU/L (17-59); BILIRUBIN,TOTAL 0.6 mg/dL (0.1-1.4); CALCIUM 8.7 mg/dL (8.5-10.4); CARBON DIOXIDE 23 mEq/l (22-31); CHLORIDE 97 mEq/L (97-110); GLOMERULAR FILTRATION RATE 6; GLUCOSE 93 mg/dL (70-100); MAGNESIUM 1.6 mg/dL (1.6-2.3); POTASSIUM 4.9 mEq/L (3.5-5.2); SODIUM 137 mEq/L (134-144); TOTAL PROTEIN 6.6 g/dL (6.3-8.2)
[2017-04-03 05:38] LABS: CREATININE 8.4 mg/dL (0.7-1.3)
[2017-04-03] MEDS: PANTOPRAZOLE SODIUM 40 MG TAB PO SCH (08:49)
[2017-04-03] MEDS: CALCIUM CARBONATE 500 MG CHEWABLE TAB PO SCH ×3 (08:49→15:08)
[2017-04-03] MEDS: SODIUM BICARBONATE 650 MG TAB PO SCH (08:49)
--- NOTE | 2017-04-03 09:15 | SOAPPROG ---
SOAP Progress Note Assessment/Plan: Assessment: 1. Hyperkalemia. Life threatening. Improved with dialysis. Continue weekly labs. Return to ED prn K > 6. 2. ESRD. No outpatient benefits. Prone to dialysis dysequilibrium. Will require short treatments with lower blood /dialysis flow in future to minimize osmotic shifts after a week of no dialysis. Likely also has worsening cardiac reserve/DD/Aortic stiffness/impaired refill with fluid removal. BP and sxs resolved today. 3. HTN. BP runs very high at home. Increase home hydralazine to 25 mg 3 tabs BID (med rec incorrect). 4. Anemia. Hgb adequate. Plan: 04/03/17 09:12 04/03/17 09:16 Subjective: Had bradycardia, confusion, hypotension, BP drop to 100s on dialysis yesterday. Says had similar episode prior hospital stay. Feels better today. States taking hydralazine 2 tabs bid at home, BPs 160s +, ocl dizzy. Objective: Vital Signs Temp Pulse Resp BP Pulse Ox 36.7 C 72 18 189/83 H 93 04/03/17 08:00 04/03/17 08:00 04/03/17 08:00 04/03/17 08:00 04/03/17 08:00 Laboratory Results 04/02/17 04:09 04/03/17 04:30 04/02/17 04/03/17 04/04/17 05:59 05:59 05:59 Intake Total 200 550 Balance 200 550 Comfortable, alert, in good spirits RRR, no m/g/r CTAB Abdom soft, nt No edema R calf with stasis skin changes, some weeping from skin, no ulcers ICD10 Worksheet Patient Problems: Problems Problem Status Onset Acute renal failure Acute Anemia Acute Abdominal pain Acute Hyperkalemia Acute Hypocalcemia Acute Renal failure Acute Hypertension Acute Acute upper GI bleed Acute Anemia associated with acute blood loss Acute End stage renal disease Acute Metabolic acidosis Acute Diarrhea Acute Shingles (herpes zoster) polyneuropathy Acute Kidney failure Acute Hyperkalemia Acute Chronic renal failure Acute Hyperkalemia Acute Kidney failure Acute Hyperkalemia Acute Kidney failure Acute Uremia Acute Hyperkalemia Acute Hyperkalemia Acute Hyperkalemia Acute Hyperkalemia Acute Uremia Acute Hyperkalemia Acute End stage renal disease Acute Hyperkalemia Acute ESRD (end stage renal disease) Acute Anemia, chronic disease Acute End stage renal disease Acute Hyperkalemia, diminished renal excretion Acute
[2017-04-03] MEDS: ATORVASTATIN CALCIUM 40 MG TAB PO SCH (15:03)
[2017-04-03 15:06] VITALS: RESP 16; TEMP 97.5; O2SAT 96
[2017-04-03] MEDS: NEPHROVITE FOLIC ACID/VIT B&C 1 TAB PO SCH (15:08)
[2017-04-03] MEDS ORDERED: HEPARIN 50,000 UNIT/10 ML VIAL ONE (16:00)
[2017-04-03 16:40] VITALS: BP 163/110; PULSE 70
--- NOTE | 2017-04-04 03:51 | GDS ---
[f rep st] DISCHARGE SUMMARY DISCHARGE DIAGNOSES: 1. End-stage renal disease. 2. Hyperkalemia. 3. Hypertension. 4. Anemia of chronic kidney disease. 5. Metabolic acidosis secondary to chronic kidney disease. 6. Chronic diastolic heart failure. CONSULTANTS: Dr. Nigel Stanley, Nephrology. HISTORY: For details, please see dictated history and physical dated April 01. In brief, the patient is a 67-year-old male with a history of end-stage renal disease with no outpatient dialysis b [facility], who returns to the emergency department for emergent dialysis needs. He is admitted to the hospital for further management. HOSPITAL COURSE: Patient is admitted to the PCU. He again presents with hyperkalemia with a potassi um of 7.4. He was immediately treated with insulin, dextrose, bicarb, calcium gluconate, and Kayexal ate. The renal service was consulted, and the patient underwent dialysis with normalization of his p otassium. His metabolic acidosis is also improved. He is continued on oral sodium bicarb. His hemo globin has been stable, and he has had no chest pain or evidence of GI bleeding. He is in good spiri ts on the day of discharge and wishes to go home. DISPOSITION: Patient is discharged home in stable condition. DISCHARGE MEDICATIONS: Please see [employer] for completed outpatient medication list. Patient was gi audrey new prescriptions for all of his medications including calcium carbonate 1500 mg p.o. t.i.d.; aml odipine 10 mg p.o. daily, #90, no refills; atorvastatin 80 mg p.o. daily, #90, no refills; vitamin D3 , 50,000 unit capsules p.o. q. week, #12, no refills; nitroglycerin 0.4 mg sublingual p.r.n. chest pa in, #20, no refills; Protonix 40 mg p.o. daily, #30, no refills; sodium bicarb 1300 mg p.o. daily, #1 80, no refills. His hydralazine dose was increased to 50 mg p.o. t.i.d. This was his previous dose i n the past, but lately I have been noticing he is coming in with just 50 mg daily. I suspect this is a med rec error. Hopefully, it will be remedied with this new prescription and new dose, which his blood pressure will clearly benefit from. FOLLOWUP: Patient is to return to the hospital for follow-up dialysis needs. /[id number]/MODL
--- NOTE | 2017-04-04 09:23 | ASDISCHSUM ---
Discharge Information Plan Status:Home with No Needs Medically Cleared to Leave:04/03/2017 Discharge Date:04/03/2017 05:48 PM CM D/C Disposition:Home, Routine, Self-Care ADT D/C Disposition:Home, Routine, Self-Care Projected Discharge Date:04/03/2017 12:00 AM Transportation at D/C:Family Discharge Delay Reason: Follow-Up Date:04/03/2017 12:00 AM Discharge Slot: Final Diagnosis: Placement Information Patient Contact Information Contact Name:KAVITA Relationship:Geoffrey Address: Work Phone: City: [facility] Phone: [facility] Code: Email: Financial Information Financial Class:Self-Pay Primary Plan Desc:WE CARE Primary Plan Number:99 Secondary Plan Desc: Secondary Plan Number: Assessment Information BC CM Progress Note CM Note CM Note Notes: 04/01/2017 Case Management Note: Reviewed chart, spoke with RN. Pt lives w/son and has strong family support. Pt is well known to [facility] and admitted for emergency dialysis. Case Management d/c poc: anticipate home independently when medically stable Case Management available should needs change. Date Signed: 04/02/2017 09:13 AM Electronically Signed By:Shanelle Zamorano RN Intervention Information Intervention Type:*Incorrect Registration Date of Service:04/02/2017 08:38 AM Patient Type:Inpatient Staff Member:BJORN Watters, Leslie Hours: Discipline: Severity: Comment:
--- NOTE | 2017-04-12 16:27 | ASMTCMCOM ---
CM Note CM Note Notes: Referral in process for [facility]. Sent referrals today and should hear back Saturday. The next phase of this plan is after the admissions team has arranged the times and done all paperwork, then a one time contract will be signed between [facility] and [facility]. It will cover six months of dialysis twice per week. During this six months [facility] will assist this patient in getting some sort of insurance coverage. Date Signed: 04/12/2017 04:26 PM Electronically Signed By:Olimpia Haddad RN
== END 2017-04-03 17:48 | disposition home or self-care (01) | DRG 640 ==
LOC: OBSVTOIN 15:14 → F2W 17:56
PROVIDERS: ADMIT Internal Medicine; ATTEND Internal Medicine
PROC: 5A1D60Z (ICD-10-PCS; principal; 2017-04-02)
DX: E87.5 Hyperkalemia (principal); I13.2 Hypertensive heart and chronic kidney disease with heart failure and with stage 5 chronic kidney disease, or end stage renal disease; N18.6 End stage renal disease; I50.32 Chronic diastolic (congestive) heart failure; D63.1 Anemia in chronic kidney disease; E87.2 Acidosis; K21.9 Gastro-esophageal reflux disease without esophagitis; Z99.2 Dependence on renal dialysis
CPT/HCPCS: 82947-QW; J1644

== ENCOUNTER 2017-04-08 16:19 | Inpatient (IN) | payer MEDICAID, OTHER ==
--- NOTE | 2017-04-08 16:53 | EDPHY ---
H & P Stated Complaint: dialysis HPI/ROS: HPI CHIEF COMPLAINT: Need for dialysis HISTORY OF PRESENT ILLNESS: This patient very pleasant 67-year-old male he presents emergency room in need for dialysis. Patient is unassigned patient without insurance an undocumented, he gets his dialysis through the emergency room after being admitted. Patient was last admitted on the . It is now 5 days later. Patient reports to me that he gets dialysis every Saturday. He presents emergency room states that he does not have any chest pain however he does, mild shortness of breath and mild fatigue. Past Medical History: End-stage renal disease, chronic kidney disease, hypertension Past Surgical History: Right chest dialysis catheter Social History: Denies daily use of drugs alcohol tobacco products. Family History: Noncontributory ROS REVIEW OF SYSTEMS: A comprehensive 10 point review of systems is otherwise negative aside from elements mentioned in the history of present illness. Exam Constitutional appears well nontoxic, triage nursing summary reviewed, vital signs reviewed, awake/alert. Eyes normal conjunctivae and sclera, EOMI, PERRLA. HENT normal inspection, atraumatic, moist mucus membranes, no epistaxis, neck supple/ no meningismus, no raccoon eyes. Respiratory clear to auscultation bilaterally, normal breath sounds, no respiratory distress, no wheezing. Cardiovascular right chest dialysis catheter. Clean, dry, intact. No signs infection. rate normal, regular rhythm, no murmur, no edema, distal pulses normal. Gastrointestinal soft, non-tender, no rebound, no guarding, normal bowel sounds, no distension, no pulsatile mass. Genitourinary no CVA tenderness. Musculoskeletal no midline vertebral tenderness, full range of motion, no calf swelling, no tenderness of extremities, no meningismus, good pulses, neurovascularly intact. Skin pink, warm, & dry, no rash, skin atraumatic. Neurologic awake, alert and oriented x 3, AAOx3, moves all 4 extremities equally, motor intact, sensory intact, CN II-XII intact, normal cerebellar, normal vision, normal speech. Psychiatric normal mood/affect. Heme/Lymph/Immune no lymphadenopathy. Differential Diagnosis: Includes but is not limited to in a particular order volume overload, hyperkalemia, uremia, metabolic acidosis, need for dialysis Medical Decision Making: Plan for this patient EKG, basic blood work, and set up for dialysis. Re-evaluation: 1711: Nephrology has seen and evaluated the patient. Plan for dialysis. I will admit the patient the hospitalist service. Lab studies pending. EKG does not reveal reveal any acute signs of hyperkalemia. No peaked T-waves. EKG interpretation by me on record in [employer] system. Impression time of EKG 170, this is sinus rhythm rate of 66 no acute ischemic changes appreciated. 1723: I spoke with the hospitalist service Dr. hagen. Agrees to admit this patient. Additionally Nephrology seen evaluated the patient. Blood work studies are pending at this time. Plan will be for admission inpatient status dialysis. EKG shows no ischemia or hyperkalemia changes. BMP pending. Patient hemodynamically stable. 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 - Personal History Current Tetanus/Diphtheria Vaccine: Unsure Current Tetanus Diphtheria and Acellular Pertussis (TDAP): Unsure Tetanus Vaccine Date: 2010 - Medical/Surgical History Hx Asthma: No Hx Chronic Respiratory Disease: No Hx Diabetes: No Hx Cardiac Disease: Yes Hx Renal Disease: Yes Hx Cirrhosis: No Hx Alcoholism: No Hx HIV/AIDS: No Hx Splenectomy or Spleen Trauma: No Other PMH: gout, htn, hernia, anemia, cad, heart stent, esophagitis, GIB on plavix, ESRD, dialysis, shingles, chronic loose stools - Social History Smoking Status: Never smoked Constitutional: Initial Vital Signs Temperature (C) 37.0 C 04/08/17 16:28 Heart Rate 72 04/08/17 16:28 Respiratory Rate 16 04/08/17 16:28 Blood Pressure 181/80 H 04/08/17 16:28 O2 Sat (%) 98 04/08/17 16:28 O2 Delivery Mode Room Air Allergies/Adverse Reactions: No Known Allergies Allergy (Verified 04/01/17 14:09) Home Medications: Medication Instructions Recorded Folic Acid/Vit B Com W/C 1 each PO DAILY 01/07/17 [Nephro-Peyton Rx] Calcium Carbonate [Tums 500MG (*)] 1,500 mg PO TIDMEAL 03/11/17 Atorvastatin Calcium [Lipitor 40 80 mg PO DAILY #90 tab 04/03/17 mg (*)] Cholecalciferol Vit D3 [Vitamin D3 50,000 unit PO TU #12 capsule 04/03/17 (*)] Nitroglycerin [Nitrostat 0.4 mg 0.4 mg SL AD PRN #20 btl 04/03/17 (*)] Pantoprazole Sodium [Protonix 40mg 40 mg PO DAILY #30 tab 04/03/17 (*)] Sodium Bicarbonate [Na Bicarb] 1,300 mg PO DAILY #180 tab 04/03/17 amLODIPine BESYLATE [Norvasc 10 mg 10 mg PO DAILY #90 tab 04/03/17 (*)] hydrALAZINE [Apresoline 50 mg (*)] 50 mg PO TID #180 tab 04/03/17 Medical Decision Making - Data Points Medications Given: Discontinued Medications Amlodipine Besylate (Norvasc) 10 mg PO DAILY BLAIR Stop: 10/06/17 08:59 Last Admin: 04/09/17 08:44 Dose: 10 mg Atorvastatin Calcium (Lipitor) 80 mg PO DAILY BLAIR Stop: 10/06/17 08:59 Last Admin: 04/09/17 08:44 Dose: 80 mg Calcium Carbonate (Tums) 1,500 mg PO TIDMEAL BLAIR Stop: 10/06/17 07:59 Last Admin: 04/09/17 12:28 Dose: 1,500 mg Calcium Gluconate (Calcium Gluconate) 1 gm IVP EDNOW ONE Stop: 04/08/17 17:14 Last Admin: 04/08/17 17:40 Dose: 1 gm Cholecalciferol (D3-50) 50,000 unit PO Tu@0900 BLAIR Stop: 10/06/17 08:59 Last Admin: 04/09/17 12:28 Dose: 50,000 unit Heparin Sodium (Porcine) (Heparin Sc Injection) 5,000 unit SC Q8 BLAIR Stop: 10/05/17 21:59 Last Admin: 04/09/17 06:29 Dose: 5,000 unit Hydralazine HCl (Apresoline) 50 mg PO TID BLAIR Stop: 10/05/17 21:59 Last Admin: 04/09/17 08:44 Dose: 50 mg Influenza Virus Vaccine Quadrival (Fluarix Quad [id number]) 0.5 ml IM .ONCE ONE Stop: 04/09/17 12:30 Last Admin: 04/09/17 12:45 Dose: 0.5 ml Pantoprazole Sodium (Protonix) 40 mg PO DAILY BLAIR Stop: 10/06/17 08:59 Last Admin: 04/09/17 08:44 Dose: 40 mg Sodium Bicarbonate (Na Bicarb) 1,300 mg PO DAILY BLAIR Stop: 10/06/17 08:59 Last Admin: 04/09/17 08:43 Dose: 1,300 mg Vitamin B Complex/Vit C/Folic Acid (Ev-Peyton) 1 each PO DAILY BLAIR Stop: 10/06/17 08:59 Last Admin: 04/09/17 08:44 Dose: 1 each Departure - Departure Disposition: [facility] Acute Clinical Impression: End stage renal disease, Hyperkalemia Condition: Fair
--- NOTE | 2017-04-08 17:11 | CPEKG ---
Heart Rate: 66 RR Interval: 909 P-R Interval: 168 QRSD Interval: 92 QT Interval: 436 QTC Interval: 457 P Arabi: 74 QRS Arabi: 73 T Wave Arabi: 75 EKG Severity - NORMAL ECG - EKG Impression: SINUS RHYTHM Electronically Signed By: Daniele Cooper 08-Apr-2017 21:12:07
[2017-04-08] MEDS ORDERED: CALCIUM GLUC 10% 1 GM/10 ML VIAL IVP ONE (17:13)
--- NOTE | 2017-04-08 17:18 | PDCONSULT ---
[facility] Note: Assessment/Plan: ESRD: pt lacks benefits for outpatient dialysis. - Will do HD today. - Will plan on HD again tomorrow. Hyperkalemia: pt usually has hyperkalemia on presentation, labs still pending. - Will give calcium IV push. - Will modulate further on HD. Hypervolemia: will modulate on HD. Thank you for the interesting consult. Nephrology will continue to follow, please call if you have any additional questions or concerns. H & P Stated Complaint: dialysis HPI/ROS: HPI: Mr. Walton is a 67 yo M with h/o ESRD who does not have benefits to get regular HD. Pt presents to ED for HD. He is having diarrhea, which is common symptom for him when he needs dialysis. He has no chest pain or dyspnea , does have some mild swelling in his legs. He notes that he is also having some mild abdominal pain this time, no N/V. ROS: Positive per HPI, rest of 10-point ROS negative - Personal History Current Tetanus/Diphtheria Vaccine: Unsure Current Tetanus Diphtheria and Acellular Pertussis (TDAP): Unsure Tetanus Vaccine Date: 2010 - Medical/Surgical History Hx Asthma: No Hx Chronic Respiratory Disease: No Hx Diabetes: No Hx Cardiac Disease: Yes Hx Renal Disease: Yes Hx Cirrhosis: No Hx Alcoholism: No Hx HIV/AIDS: No Hx Splenectomy or Spleen Trauma: No Other PMH: gout, htn, hernia, anemia, cad, heart stent, esophagitis, GIB on plavix, ESRD, dialysis, shingles, chronic loose stools - Social History Smoking Status: Never smoked - Physical Exam Exam: General: alert and oriented, no acute distress Eyes: EOMI, PERRL OP: clear, MMM CV: RRR, +2/4 radial and dorsalis pedis pulses, +1 edema BLE Resp: CTA bilat, nonlabored respirations on RA Abd: Soft, NT/ND Neuro; CN II-XII grossly intact, no asterixis Psych: cooperative, appropriate mood and affect Constitutional: Initial Vital Signs Temperature (C) 37.0 C 04/08/17 16:28 Heart Rate 72 04/08/17 16:28 Respiratory Rate 16 04/08/17 16:28 Blood Pressure 181/80 H 04/08/17 16:28 O2 Sat (%) 98 04/08/17 16:28 O2 Delivery Mode Room Air Allergies/Adverse Reactions: No Known Allergies Allergy (Verified 04/01/17 14:09) Home Medications: Medication Instructions Recorded Folic Acid/Vit B Com W/C 1 each PO DAILY 01/07/17 [Nephro-Peyton Rx] Calcium Carbonate [Tums 500MG (*)] 1,500 mg PO TIDMEAL 03/11/17 Atorvastatin Calcium [Lipitor 40 80 mg PO DAILY #90 tab 04/03/17 mg (*)] Cholecalciferol Vit D3 [Vitamin D3 50,000 unit PO TU #12 capsule 04/03/17 (*)] Nitroglycerin [Nitrostat 0.4 mg 0.4 mg SL AD PRN #20 btl 04/03/17 (*)] Pantoprazole Sodium [Protonix 40mg 40 mg PO DAILY #30 tab 04/03/17 (*)] Sodium Bicarbonate [Na Bicarb] 1,300 mg PO DAILY #180 tab 04/03/17 amLODIPine BESYLATE [Norvasc 10 mg 10 mg PO DAILY #90 tab 04/03/17 (*)] hydrALAZINE [Apresoline 50 mg (*)] 50 mg PO TID #180 tab 04/03/17
[2017-04-08] MEDS ORDERED: ACETAMINOPHEN 325 MG TAB PO PRN (17:22)
[2017-04-08] MEDS ORDERED: ONDANSETRON DISINTEGRATING 4 MG TAB PO PRN (17:22)
[2017-04-08] MEDS ORDERED: ONDANSETRON 4 MG/2 ML VIAL IVP PRN (17:22)
[2017-04-08] MEDS ORDERED: CALCIUM GLUC 10% 1 GM/10 ML VIAL ONE (17:35)
[2017-04-08 17:40] LABS: % IMMATURE GRANULYOCYTES 0.3 % (0.0-1.1); ABSOLUTE IMMATURE GRANULOCYTES 0.02 10^3/uL (0.00-0.10); ADD DIFF? NO; ADD MORPH? NO; ADD SCAN? NO; ATYPICAL LYMPHOCYTE FLAG 0 (0-99); FRAGMENT RBC FLAG 0 (0-99); HEMATOCRIT 26.8 % (40.0-51.0); LEFT SHIFT FLG 0 (0-99); LIPEMIA HEMOLYSIS FLAG 80 (0-99); MEAN CELL HEMOGLOBIN 30.5 pg (27.9-34.1); MEAN CELL HEMOGLOBIN CONCENTR. 33.6 g/dL (32.4-36.7); MEAN CELL VOLUME 90.8 fL (81.5-99.8); MEAN PLATELET VOLUME 11.2 fL (8.7-11.7); PLATELET CLUMPS FLAG 0 (0-99); PLATELET COUNT 114 10^3/uL (150-400); RED BLOOD CELL COUNT 2.95 10^6/uL (4.40-6.38); RED CELL DISTRIBUTION WIDTH 15.4 % (11.5-15.2)
[2017-04-08 17:58] LABS: ANION GAP 23 mEq/L (8-16); CALCIUM 7.9 mg/dL (8.5-10.4); CARBON DIOXIDE 17 mEq/l (22-31); CHLORIDE 99 mEq/L (97-110); GLUCOSE 115 mg/dL (70-100); SODIUM 139 mEq/L (134-144)
[2017-04-08 18:34] LABS: CREATININE 15.5 mg/dL (0.7-1.3); GLOMERULAR FILTRATION RATE 3
--- NOTE | 2017-04-08 19:13 | PDGENHP ---
History and Physical - Chief Complaint Acute diarrhea - History of Present Illness PCP: None HPI: 67-year-old male presents with acute diarrhea characterized as nonbloody, loose stool with associated pain diffusely in his abdomen, edema located in his bilateral lower extremities. He reports that the onset of symptoms was 1 day prior and duration has been constant thereafter. The pain is somewhat alleviated by ambulation and sitting upright, somewhat alleviated by lying supine. Patient has noticed increased irritation at a right inguinal hernia site, but the area has been reducible, which alleviates the pain. The patient has been taking all of his oral home medications, but has not been taking any Kayexalate, as he fears the diarrhea. History Information - Allergies/Home Medication List Allergies/Adverse Reactions: No Known Allergies Allergy (Verified 04/01/17 14:09) Home Medications: Folic Acid/Vit B Com W/C [Nephro-Peyton Rx] 1 each PO DAILY 01/07/17 [Last Taken 04/01/17] Calcium Carbonate [Tums 500MG (*)] 1,500 mg PO TIDMEAL 03/11/17 [Last Taken ] I have personally reviewed and updated: family history, medical history, social history, surgical history - Past Medical History coronary artery disease (Known coronary disease but has not undergone interventional cardiac catheterization), ESRD, GI bleed, GERD (Anemia of chronic disease, H/O UGIB x2 (first on Plavix +ASA, then on ASA alone), esophagitis), hypertension Additional medical history: Anemia of chronic kidney disease; upper GI bleed in the setting of anti-platelet medications, has occurred while on single and double agent therapy; 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; esophagitis - Surgical History Additional surgical history: R IJ tunneled catheter - Family History Additional family history: Mother with CVA and HTN - Social History Smoking Status: Never smoked Alcohol Use: None Drug Use: None Additional social history: Continues to work on non-HD days Review of Systems Review of Systems: ROS: 10pt was reviewed & negative except for what was stated in HPI & below Constitutional: Reports: weakness Cardiac: Reports: edema Gastrointestinal: Reports: abdominal pain, diarrhea Physical Exam Physical Exam: Temp Pulse Resp BP Pulse Ox 36.8 C 63 17 168/78 H 99 04/08/17 17:43 04/08/17 17:43 04/08/17 17:43 04/08/17 17:43 04/08/17 17:43 Constitutional: not in pain, chronically ill appearing, cachectic, No uncomfortable Eyes: PERRL, anicteric sclera, EOMI Ears, Nose, Mouth, Throat: moist mucous membranes, hearing normal, ears appear normal, no oral mucosal ulcers Cardiovascular: systolic murmur (2/6 at all valve locations), edema (Right greater than left lower extremity), No irregularly irregular, No tachycardia Respiratory: no respiratory distress, no rales or rhonchi, clear to auscultation Gastrointestinal: normoactive bowel sounds, soft, non-tender abdomen, no palpable masses, other (Palpable, nontender, reducible hernia in the right groin ) Skin: warm, normal color, no rashes or abrasions, no fluctuance, no induration, No mottled Neurologic: AAOx3, sensation intact bilaterally, No weakness Psychiatric: interacting appropriately, not anxious, not encephalopathic, thought process linear Lab Data & Imaging Review 04/08/17 Unknown 04/08/17 Unknown WBC 6.35 10^3/uL (3.80-9.50) 04/08/17 Unknown RBC 2.95 10^6/uL (4.40-6.38) L 04/08/17 Unknown Hgb 9.0 g/dL (13.7-17.5) L 04/08/17 Unknown Hct 26.8 % (40.0-51.0) L 04/08/17 Unknown MCV 90.8 fL (81.5-99.8) 04/08/17 Unknown MCH 30.5 pg (27.9-34.1) 04/08/17 Unknown MCHC 33.6 g/dL (32.4-36.7) 04/08/17 Unknown RDW 15.4 % (11.5-15.2) H 04/08/17 Unknown Plt Count 114 10^3/uL (150-400) L 04/08/17 Unknown MPV 11.2 fL (8.7-11.7) 04/08/17 Unknown Neut % (Auto) 66.5 % (39.3-74.2) 04/08/17 Unknown Lymph % (Auto) 15.9 % (15.0-45.0) 04/08/17 Unknown [place] % (Auto) 5.7 % (4.5-13.0) 04/08/17 Unknown Eos % (Auto) 10.7 % (0.6-7.6) H 04/08/17 Unknown Baso % (Auto) 0.9 % (0.3-1.7) 04/08/17 Unknown Nucleat RBC Rel Count 0.0 % (0.0-0.2) 04/08/17 Unknown Absolute Neuts (auto) 4.22 10^3/uL (1.70-6.50) 04/08/17 Unknown Absolute Lymphs (auto) 1.01 10^3/uL (1.00-3.00) 04/08/17 Unknown Absolute Monos (auto) 0.36 10^3/uL (0.30-0.80) 04/08/17 Unknown Absolute Eos (auto) 0.68 10^3/uL (0.03-0.40) H 04/08/17 Unknown Absolute Basos (auto) 0.06 10^3/uL (0.02-0.10) 04/08/17 Unknown Absolute Nucleated RBC 0.00 10^3/uL (0-0.01) 04/08/17 Unknown Immature Gran % 0.3 % (0.0-1.1) 04/08/17 Unknown Immature Gran # 0.02 10^3/uL (0.00-0.10) 04/08/17 Unknown Sodium 139 mEq/L (134-144) 04/08/17 Unknown Potassium 6.0 mEq/L (3.5-5.2) H 04/08/17 Unknown Chloride 99 mEq/L (97-110) 04/08/17 Unknown Carbon Dioxide 17 mEq/l (22-31) L 04/08/17 Unknown Anion Gap 23 mEq/L (8-16) H 04/08/17 Unknown BUN 147 mg/dL (7-23) H* 04/08/17 Unknown Creatinine 15.5 mg/dL (0.7-1.3) H* 04/08/17 Unknown Estimated GFR 3 04/08/17 Unknown Glucose 115 mg/dL (70-100) H 04/08/17 Unknown Calcium 7.9 mg/dL (8.5-10.4) L 10/02/17 Unknown Visualized and Interpreted EKG results: Yes EKG Interpretation: Positive for: other (No T-wave abnormalities, normal sinus mechanism) Assessment & Plan Assessment: 67-year-old male presents with acute uremia in the setting of end-stage renal disease Plan: 1. Uremia. Acute, resulting in diarrhea, requires hemodialysis, monitor diarrhea 2. Hyperkalemia. Acute, new problem this provider, further workup indicated. Secondary to end-stage renal disease, no access to hemodialysis as an outpatient , potassium is 6.0 -monitor on telemetry -hemodialysis tonight -repeat potassium level in a.m. -appreciate Nephrology consultation 3. End-stage renal disease. Chronic, patient has no access to outpatient hemodialysis, discussed with Dr. Prieto Vasquez, we both agree the patient warrants emergent hemodialysis at this time 4. Anemia of chronic kidney disease. Hemoglobin stable at 9.0, patient received erythropoietin during his last hospitalization, monitor hemoglobin level while inpatient 5. Inguinal hernia. Right-sided, reducible, is not surgical at this time but he does warrant an outpatient surgical consultation -recommend outpatient surgical consultation by Dr. Sacha Quesada, discussed with patient, contact information place discharge tab 6. Hypertension. Chronic, secondary to end-stage renal disease, reviewed outside records including 04/03/[address] Tiarra Amato, she reports the patient's hydralazine was up titrated to 50 mg 3 times daily, patient reports that he is currently taking this dosage -continue all of his home medications 7. Chronic coronary artery disease. Chronic, continue home medications Diet. Renal Prophylaxis. High risk patient, heparin subcu Code. Full Disposition. Anticipated discharge uncertain this time, anticipated length stay is greater than 48 hours warranting inpatient admission status for reasonable medical necessity including emergent hemodialysis for end-stage renal disease and acute hyperkalemia, most likely requiring several sessions.
[2017-04-08] MEDS ORDERED: HEPARIN 50,000 UNIT/10 ML VIAL ONE (21:16)
[2017-04-08] MEDS: HEPARIN 5,000 UNIT/0.5 ML SYR SC SCH (21:36)
[2017-04-08] MEDS ORDERED: NITROGLYCERIN 0.4 MG BTL SL PRN (22:01)
[2017-04-09 04:17] LABS: % IMMATURE GRANULYOCYTES 0.2 % (0.0-1.1); ABSOLUTE IMMATURE GRANULOCYTES 0.01 10^3/uL (0.00-0.10); ADD DIFF? NO; ADD MORPH? NO; ADD SCAN? NO; ATYPICAL LYMPHOCYTE FLAG 0 (0-99); FRAGMENT RBC FLAG 0 (0-99); HEMATOCRIT 23.6 % (40.0-51.0); LEFT SHIFT FLG 0 (0-99); LIPEMIA HEMOLYSIS FLAG 90 (0-99); MEAN CELL HEMOGLOBIN 30.1 pg (27.9-34.1); MEAN CELL HEMOGLOBIN CONCENTR. 33.9 g/dL (32.4-36.7); MEAN CELL VOLUME 88.7 fL (81.5-99.8); MEAN PLATELET VOLUME 10.6 fL (8.7-11.7); PLATELET CLUMPS FLAG 10 (0-99); PLATELET COUNT 118 10^3/uL (150-400); RED BLOOD CELL COUNT 2.66 10^6/uL (4.40-6.38); RED CELL DISTRIBUTION WIDTH 15.3 % (11.5-15.2)
[2017-04-09 04:33] LABS: ANION GAP 19 mEq/L (8-16); CALCIUM 7.7 mg/dL (8.5-10.4); CARBON DIOXIDE 20 mEq/l (22-31); CHLORIDE 102 mEq/L (97-110); GLOMERULAR FILTRATION RATE 5; GLUCOSE 116 mg/dL (70-100); MAGNESIUM 1.6 mg/dL (1.6-2.3); POTASSIUM 5.3 mEq/L (3.5-5.2); SODIUM 141 mEq/L (134-144)
[2017-04-09 04:39] LABS: CREATININE 10.7 mg/dL (0.7-1.3)
[2017-04-09] MEDS: HEPARIN 5,000 UNIT/0.5 ML SYR SC SCH (06:29)
[2017-04-09] MEDS: CALCIUM CARBONATE 500 MG CHEWABLE TAB PO SCH ×2 (08:44→12:28)
[2017-04-09 08:46] VITALS: RESP 17
[2017-04-09] MEDS ORDERED: PANTOPRAZOLE SODIUM 40 MG TAB PO SCH (09:00)
[2017-04-09] MEDS ORDERED: SODIUM BICARBONATE 650 MG TAB PO SCH (09:00)
[2017-04-09] MEDS ORDERED: CHOLECALCIFEROL VIT D3 50,000 UNIT CAP PO SCH (09:00)
[2017-04-09] MEDS ORDERED: ATORVASTATIN CALCIUM 40 MG TAB PO SCH (09:00)
[2017-04-09] MEDS ORDERED: NEPHROVITE FOLIC ACID/VIT B&C 1 TAB PO SCH (09:00)
[2017-04-09 12:13] VITALS: BP 171/89; TEMP 98.1; O2SAT 94
[2017-04-09] MEDS ORDERED: FLU VACC QS 2017-18 (3YR+)/PF 0.5 ML SYR (FLUARIX QUAD) IM ONE (12:29)
--- NOTE | 2017-04-09 14:19 | GDS ---
[f rep st] DISCHARGE SUMMARY DISCHARGE DIAGNOSES: Include: 1. Life-threatening hyperkalemia. 2. Coronary artery disease. 3. End-stage renal disease. 4. History of upper gastrointestinal bleeding. 5. Anemia of renal disease. 6. Inguinal hernia. HISTORY OF PRESENT ILLNESS: A 67-year-old male with a history of end-stage renal disease, without re gular access to hemodialysis, who presents with complaints of uremia. For details of the patient's i nitial presentation, please see the History and Physical dated 04/08/2017. CONSULTATIVE SERVICES: Include Nephrology. PROCEDURES: Patient received hemodialysis x2 during this hospital stay. HOSPITAL COURSE: By issue: 1. Severe life-threatening hyperkalemia. Patient presented with a potassium of 6.0, was taken emerg ently for hemodialysis. The morning after admission, potassium is improved to 5.3, and he will recei ve 1 additional round before disposition. He will continue on his home medications and dietary restr ictions related to potassium intake. 2. Coronary artery disease. Patient did not have any chest pain on this hospitalization. EKG was w ithout acute changes. He will be continued on his appropriate coronary artery disease regimen. 3. Hypertension. Blood pressures remained controlled with systolics in the 160s to 180s. We see a steady decline in his systolic pressures post hemodialysis. He will be continued on his multi-drug r egimen without alteration on this hospital stay. 4. Chronic metabolic acidosis secondary to end-stage renal disease. Patient will be continued on hi s oral sodium bicarbonate and again, re-present for electrolyte evaluation and emergent hemodialysis when possible and appropriate. MEDICATIONS AT THE TIME OF TRANSFER: Please reference med rec printed on 04/09/2016. FOLLOWUP APPOINTMENTS: Include for laboratory checks in the outpatient setting for evaluation of nee d for HD. PENDING STUDIES: At the time of this dictation, are none. TIME SPENT: I spent greater than 30 minutes in the planning and coordination of this discharge. /[id number]/MODL
--- NOTE | 2017-04-09 14:21 | SOAPPROG ---
JACQUELINE Progress Note Assessment/Plan: Assessment: ESRD Hyperkalemia Plan: HD today wants to go home after HD today 04/09/17 14:19 Subjective: spirits good denies pain nausea vomiting anorexia or SOB energy good Objective: Vital Signs Temp Pulse Resp BP Pulse Ox 36.7 C 74 17 171/89 H 94 04/09/17 12:00 04/09/17 12:00 04/09/17 12:00 04/09/17 12:00 04/09/17 12:00 Laboratory Results 04/09/17 04:01 04/09/17 04:01 04/08/17 04/09/17 04/10/17 05:59 05:59 05:59 Intake Total 400 Balance 400 Physical Exam - Physical Exam General Appearance: alert, no apparent distress, thin Respiratory: No rales, No rhonchi, No wheezing Cardiac/Chest: regular rate, rhythm, No edema Abdomen: normal bowel sounds, non-tender, soft, No distended Skin: normal color, warm/dry Extremities: No pedal edema Neuro/Psych: alert, normal mood/affect, oriented x 3 ICD10 Worksheet Patient Problems: Problems Problem Status Onset End stage renal disease Acute Abdominal pain Acute Acute renal failure Acute Acute upper GI bleed Acute Anemia Acute Anemia associated with acute blood loss Acute Anemia, chronic disease Acute Chronic renal failure Acute Diarrhea Acute ESRD (end stage renal disease) Acute End stage renal disease Acute End stage renal disease Acute Hyperkalemia Acute Hyperkalemia Acute Hyperkalemia Acute Hyperkalemia Acute Hyperkalemia Acute Hyperkalemia Acute Hyperkalemia Acute Hyperkalemia Acute Hyperkalemia Acute Hyperkalemia Acute Hyperkalemia, diminished renal excretion Acute Hypertension Acute Hypocalcemia Acute Kidney failure Acute Kidney failure Acute Kidney failure Acute Metabolic acidosis Acute Renal failure Acute Shingles (herpes zoster) polyneuropathy Acute Uremia Acute Uremia Acute
--- NOTE | 2017-04-09 14:55 | ASMTCMCOM ---
CM Note CM Note Notes: 04/09/2017 Case Management Note: Pt is well known to [facility], admitted for Hyperkalemia r/t ESRD requiring dialysis inpatient. Pt has Primary Care Provider at [facility]. Case Management d/c poc: home with f/u at [facility] when medically stable. Case Management available if needs change. Date Signed: 04/09/2017 02:54 PM Electronically Signed By:Shanelle Zamorano RN
[2017-04-09 17:25] VITALS: PULSE 78
[2017-04-09] MEDS ORDERED: HEPARIN 50,000 UNIT/10 ML VIAL ONE (18:00)
--- NOTE | 2017-04-10 12:07 | ASDISCHSUM ---
Discharge Information Plan Status:Home with No Needs Medically Cleared to Leave:04/09/2017 Discharge Date:04/09/2017 06:55 PM CM D/C Disposition:Home, Routine, Self-Care ADT D/C Disposition:Home, Routine, Self-Care Projected Discharge Date:04/09/2017 12:00 AM Transportation at D/C:Self Discharge Delay Reason: Follow-Up Date:04/09/2017 12:00 AM Discharge Slot: Final Diagnosis: Placement Information Patient Contact Information Contact Name:KAVIAT Relationship:Geoffrey Address: Work Phone: City: [facility] Phone: [facility] Code: Email: Financial Information Financial Class:Self-Pay Primary Plan Desc:WE CARE Primary Plan Number:99 Secondary Plan Desc: Secondary Plan Number: Assessment Information [facility] CM Progress Note CM Note CM Note Notes: 04/09/2017 Case Management Note: Pt is well known to [facility], admitted for Hyperkalemia r/t ESRD requiring dialysis inpatient. Pt has Primary Care Provider at [facility]. Case Management d/c poc: home with f/u at [facility] when medically stable. Case Management available if needs change. Date Signed: 04/09/2017 02:54 PM Electronically Signed By:Shanelle Zamorano RN Intervention Information
== END 2017-04-09 18:55 | disposition home or self-care (01) | DRG 640 ==
LOC: F2W 18:24
PROVIDERS: ADMIT Internal Medicine; ATTEND Internal Medicine
PROC: 5A1D70Z Performance of Urinary Filtration, Intermittent, Less than 6 Hours Per Day (ICD-10-PCS; principal; 2017-04-08)
DX: E87.5 Hyperkalemia (principal); I12.0 Hypertensive chronic kidney disease with stage 5 chronic kidney disease or end stage renal disease; N18.6 End stage renal disease; K92.2 Gastrointestinal hemorrhage, unspecified; I25.10 Atherosclerotic heart disease of native coronary artery without angina pectoris; K40.90 Unilateral inguinal hernia, without obstruction or gangrene, not specified as recurrent; E87.2 Acidosis; D63.1 Anemia in chronic kidney disease; Z91.15 Patient's noncompliance with renal dialysis; Z23 Encounter for immunization
CPT/HCPCS: G0008; J0610; J1644

== ENCOUNTER 2017-04-15 15:06 | Inpatient (IN) | payer MEDICAID, OTHER ==
--- NOTE | 2017-04-15 15:19 | EDPHY ---
H & P Stated Complaint: dialysis Time Seen by Provider: 04/15/17 15:16 HPI/ROS: CHIEF COMPLAINT: Requesting dialysis HISTORY OF PRESENT ILLNESS: The patient presents to the emergency department requesting dialysis. He is well known to the hospital system as he is unable to get outpatient dialysis secondary to his current insurance status. The patient is typically dialyzed on Saturday and Saturday. The patient does have a history of chronic diarrhea. He denies any shortness of breath. He has been compliant with his regular outpatient medications. REVIEW OF SYSTEMS: A comprehensive 10 point review of systems is otherwise negative aside from elements mentioned in the history of present illness. 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 Exam Limitations: No limitations - Personal History Tetanus Vaccine Date: 2010 - Medical/Surgical History Hx Asthma: No Hx Chronic Respiratory Disease: No Hx Diabetes: No Hx Cardiac Disease: Yes Hx Renal Disease: Yes Hx Cirrhosis: No Hx Alcoholism: No Hx HIV/AIDS: No Hx Splenectomy or Spleen Trauma: No Other PMH: gout, htn, hernia, anemia, cad, heart stent, esophagitis, GIB on plavix, ESRD, dialysis, shingles, chronic loose stools - Social History Smoking Status: Never smoked - Physical Exam Exam: General Appearance: Alert, no distress Eyes: Pupils equal and round no pallor or injection ENT, Mouth: Mucous membranes moist Respiratory: There are no retractions, lungs are clear to auscultation Cardiovascular: Regular rate and rhythm Gastrointestinal: Abdomen is soft and nontender, no masses, bowel sounds normal Neurological: A&O, normal motor function, normal sensory exam, normal cranial nerves Skin: Warm and dry, no rashes Musculoskeletal: Neck is supple nontender Extremities: symmetrical, full range of motion Constitutional: Initial Vital Signs Temperature (C) 36.4 C 04/15/17 15:08 Heart Rate 71 04/15/17 15:08 Respiratory Rate 18 04/15/17 15:08 Blood Pressure 181/75 H 04/15/17 15:08 O2 Sat (%) 99 04/15/17 15:08 O2 Delivery Mode Room Air Allergies/Adverse Reactions: No Known Allergies Allergy (Verified 04/01/17 14:09) Home Medications: Medication Instructions Recorded Folic Acid/Vit B Com W/C 1 each PO DAILY 01/07/17 [Nephro-[facility] Rx] Calcium Carbonate [Tums 500MG (*)] 1,500 mg PO TIDMEAL 03/11/17 Atorvastatin Calcium [Lipitor 40 80 mg PO DAILY #90 tab 04/03/17 mg (*)] Cholecalciferol Vit D3 [Vitamin D3 50,000 unit PO TU #12 capsule 04/03/17 (*)] Nitroglycerin [Nitrostat 0.4 mg 0.4 mg SL AD PRN #20 btl 04/03/17 (*)] Pantoprazole Sodium [Protonix 40mg 40 mg PO DAILY #30 tab 04/03/17 (*)] Sodium Bicarbonate [Na Bicarb] 1,300 mg PO DAILY #180 tab 04/03/17 amLODIPine BESYLATE [Norvasc 10 mg 10 mg PO DAILY #90 tab 04/03/17 (*)] hydrALAZINE [Apresoline 50 mg (*)] 50 mg PO TID #180 tab 04/03/17 Medical Decision Making - Diagnostics EKG Interpretation: EKG: Complete interpretation has been separately recorded in the [employer] archive. Summary impression: Sinus rhythm, rate 65 ED Course/Re-evaluation: The patient is well-appearing. He has a blood pressure of 146/87, oxygen saturation is 99% on room air. The patient's initial Chem 7 demonstrates a potassium is 7.0 however the specimen was hemolyzed. An I-STAT was obtained and potassium was 6.5. The patient was treated with calcium, bicarb, D50, insulin and Kayexalate. I spoke with Dr. Chin from Nephrology who will make arrangements for the patient to get dialysis. Consultation is made with Dr. Amato from the hospitalist service who will admit the patient. The patient's i-STAT was rechecked at 7:10 and is found to be 5.1 The patient will be admitted to the hospital for further management of his end- stage renal disease. Differential Diagnosis: Differential diagnosis considered includes hyperkalemia, congestive heart failure, metabolic abnormality - Data Points Laboratory Results: Laboratory Results 04/15/17 15:45 04/15/17 04/15/17 16:41 15:45 POC Hgb 9.5 gm/dL L gm/dL (13.7-17.5) POC Hct 28 % L % (40-51) POC Sodium 140 mEq/L mEq/L (134-144) Sodium 140 mEq/L mEq/L (134-144) POC Potassium 6.5 mEq/L H* mEq/L (3.3-5.0) Potassium 7.0 mEq/L H* mEq/L (3.5-5.2) POC Chloride 107 mEq/L mEq/L (97-110) Chloride 102 mEq/L mEq/L (97-110) Carbon Dioxide 13 mEq/l L mEq/l (22-31) Anion Gap 25 mEq/L H mEq/L (8-16) POC BUN > 140 mg/dL H* mg/dL (7-23) BUN 145 mg/dL H* mg/dL (7-23) Creatinine 17.6 mg/dL H* mg/dL (0.7-1.3) POC Creatinine 18.0 mg/dL H* mg/dL (0.7-1.3) Estimated GFR 3 Glucose 114 mg/dL H mg/dL (70-100) POC Glucose 104 mg/dL H mg/dL (70-100) Calcium 8.3 mg/dL L mg/dL (8.5-10.4) Specimen Hemolysis 115 Medications Given: Discontinued Medications Calcium Gluconate (Calcium Gluconate) 1 gm IVP EDNOW ONE Stop: 04/15/17 16:56 Last Admin: 04/15/17 17:55 Dose: 1 gm Dextrose (Dextrose 50% Syringe) 25 gm IVP EDNOW ONE Stop: 04/15/17 16:56 Last Admin: 04/15/17 18:07 Dose: Not Given Sodium Bicarbonate 150 meq/ (Dextrose) 1,150 mls @ 0 mls/hr IV EDNOW ONE PRN Reason: As Directed Stop: 04/15/17 16:56 Last Admin: 04/15/17 18:13 Dose: 1,150 mls Dextrose (D10w) 250 mls @ 0 mls/hr IV ONCE ONE PRN Reason: Wide Open Stop: 04/15/17 17:31 Last Admin: 04/15/17 17:56 Dose: 250 mls Insulin Human Regular (Humulin R) 10 unit IVP EDNOW ONE Stop: 04/15/17 16:56 Last Admin: 04/15/17 18:06 Dose: 10 units Point of Care Test Results: 04/15/17 16:41 POC Sodium 140 POC Potassium 6.5 H* POC Chloride 107 POC BUN > 140 H* POC Creatinine 18.0 H* POC Glucose 104 H Departure - Departure Disposition: [facility] Inpatient Acute Clinical Impression: Hyperkalemia, diminished renal excretion, End stage renal disease, Uremia Condition: Good
[2017-04-15 16:12] LABS: ANION GAP 25 mEq/L (8-16); CALCIUM 8.3 mg/dL (8.5-10.4); CARBON DIOXIDE 13 mEq/l (22-31); CHLORIDE 102 mEq/L (97-110); GLUCOSE 114 mg/dL (70-100); SODIUM 140 mEq/L (134-144)
[2017-04-15 16:18] LABS: SPECIMEN HEMOLYSIS 115
[2017-04-15 16:22] LABS: GLOMERULAR FILTRATION RATE 3
[2017-04-15 16:23] LABS: CREATININE 17.6 mg/dL (0.7-1.3)
[2017-04-15] MEDS ORDERED: D50W 25 GM/50 ML SYR IVP ONE (16:55)
[2017-04-15] MEDS ORDERED: SODIUM BICARBONATE 150 MEQ in D5W 1,000 ML IV ONE (16:55)
[2017-04-15] MEDS ORDERED: CALCIUM GLUC 10% 1 GM/10 ML VIAL IVP ONE (16:55)
[2017-04-15] MEDS ORDERED: INSULIN REGULAR HUMAN 100 UNIT/ML IVP ONE (16:55)
[2017-04-15] MEDS ORDERED: SODIUM POLY SULF 15 GM/60 ML BOTTLE PO ONE (17:06)
--- NOTE | 2017-04-15 17:10 | CPEKG ---
Heart Rate: 65 RR Interval: 923 P-R Interval: 172 QRSD Interval: 96 QT Interval: 436 QTC Interval: 454 P Woodbury: 69 QRS Woodbury: 66 T Wave [place]: 68 EKG Severity - NORMAL ECG - EKG Impression: SINUS RHYTHM Electronically Signed By: Rush Calderón 15-Apr-2017 18:58:21
[2017-04-15] MEDS ORDERED: D10W 250 ML ONCE IV ONE (17:30)
[2017-04-15] MEDS ORDERED: ONDANSETRON 4 MG/2 ML VIAL IVP PRN (18:11)
[2017-04-15] MEDS ORDERED: ACETAMINOPHEN 325 MG TAB PO PRN (18:11)
[2017-04-15] MEDS ORDERED: ONDANSETRON DISINTEGRATING 4 MG TAB PO PRN (18:11)
[2017-04-15] MEDS ORDERED: NITROGLYCERIN 0.4 MG BTL SL PRN (18:13)
--- NOTE | 2017-04-15 18:22 | PDGENHP ---
History and Physical - Chief Complaint fatigue, diarrhea - History of Present Illness 67 yo male with h/o ESRD and no access to outpatient dialysis presents for emergent dialysis. He is doing fairly well, notes increased fatigue and diarrhea, which are typical presenting symptoms for him. Denies blood in the stool. No CP or SOB. Denies LE edema. Labs in the ED revealed hyperkalemia. He was given calcium gluconate, Insulin/ Dextrose, sodium bicarb and Kayexalate. Nephrology was consulted and he is admitted for dialysis and further management. History Information - Allergies/Home Medication List Allergies/Adverse Reactions: No Known Allergies Allergy (Verified 04/01/17 14:09) Home Medications: Folic Acid/Vit B Com W/C [Nephro-[facility] Rx] 1 each PO DAILY 01/07/17 [Last Taken 04/15/17] Calcium Carbonate [Tums 500MG (*)] 1,500 mg PO TIDMEAL 03/11/17 [Last Taken 08/24] I have personally reviewed and updated: family history, medical history, social history, surgical history - Past Medical History coronary artery disease (Known coronary disease but has not undergone interventional cardiac catheterization), ESRD, GI bleed, GERD (Anemia of chronic disease, H/O UGIB x2 (first on Plavix +ASA, then on ASA alone), esophagitis), hypertension Additional medical history: Anemia of chronic kidney disease; upper GI bleed in the setting of anti-platelet medications, has occurred while on single and double agent therapy; 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; esophagitis - Surgical History Additional surgical history: R IJ tunneled catheter - Family History Additional family history: Mother with CVA and HTN - Social History Smoking Status: Never smoked Alcohol Use: None Drug Use: None Additional social history: Continues to work on non-HD days Review of Systems Review of Systems: ROS: 10pt was reviewed & negative except for what was stated in HPI & below Physical Exam Physical Exam: Temp Pulse Resp BP Pulse Ox 36.4 C 71 18 181/75 H 99 04/15/17 15:08 04/15/17 15:08 04/15/17 15:08 04/15/17 15:08 04/15/17 15:08 Constitutional: chronically ill appearing Eyes: PERRL Ears, Nose, Mouth, Throat: moist mucous membranes Cardiovascular: regular rate and rhythym Respiratory: no respiratory distress, clear to auscultation Gastrointestinal: normoactive bowel sounds, soft, non-tender abdomen Skin: warm Musculoskeletal: full muscle strength Neurologic: AAOx3 Psychiatric: interacting appropriately Lab Data & Imaging Review 04/15/17 15:45 POC Hgb 9.5 gm/dL (13.7-17.5) L 04/15/17 16:41 POC Hct 28 % (40-51) L 04/15/17 16:41 POC Sodium 140 mEq/L (134-144) 04/15/17 16:41 Sodium 140 mEq/L (134-144) 04/15/17 15:45 POC Potassium 6.5 mEq/L (3.3-5.0) H* 04/15/17 16:41 Potassium 7.0 mEq/L (3.5-5.2) H* 04/15/17 15:45 POC Chloride 107 mEq/L (97-110) 04/15/17 16:41 Chloride 102 mEq/L (97-110) 04/15/17 15:45 Carbon Dioxide 13 mEq/l (22-31) L 04/15/17 15:45 Anion Gap 25 mEq/L (8-16) H 04/15/17 15:45 POC BUN > 140 mg/dL (7-23) H* 04/15/17 16:41 BUN 145 mg/dL (7-23) H* 04/15/17 15:45 Creatinine 17.6 mg/dL (0.7-1.3) H* 04/15/17 15:45 POC Creatinine 18.0 mg/dL (0.7-1.3) H* 04/15/17 16:41 Estimated GFR 3 04/15/17 15:45 Glucose 114 mg/dL (70-100) H 04/15/17 15:45 POC Glucose 104 mg/dL (70-100) H 04/15/17 16:41 Calcium 8.3 mg/dL (8.5-10.4) L 04/15/17 15:45 Specimen Hemolysis 115 04/15/17 15:45 Visualized and Interpreted EKG results: Yes EKG Interpretation: Positive for: normal sinsus rhythm Assessment & Plan Assessment: ESRD with hyperkalemia - admit for emergent dialysis. No acute EKG changes. Pt received calcium gluconate, Insulin/Dextrose, NaHCO3 and Kayexalate in the ED. K trending down. Discussed case with renal. He will dialyze tonight. Repeat renal function panel in am. Further HD per renal. Anemia of CKD - hgb stable, epo per renal. H/O GI bleed - he bled on dual anti-platelet therapy and also on ASA monotherapy. No e/o current bleeding. CAD - Severe disease. Currently chest pain free with no ischemic EKG changes. Cont statin, no ASA for above reasons. Hypertension - BP a bit elevated on arrival. Cont Amlodipine, Hydralazine. Consider addition of Coreg if BP persists elevated. Full code DVT PPLX - SCD's for now, consider heparin if prolonged hospitalization Dispo - Inpt, anticipate >48 hrs hospitalization for ongoing management of ESRD , hyperkalemia and emergent dialysis needs.
--- NOTE | 2017-04-15 18:27 | PDCONSULT ---
Glass Calibrator Note: CC: Fatigue HPI: The patient is a 67 y/o M with a PMH of ESRD on emergent HD. States he was working up until yesterday and couldn't come in sooner. Found to have K+ >6. Last HD 03/26/17 per records. Patient denies LE edema, SOB, however admits very tired and nauseated. - Allergies/Home Medication List Allergies/Adverse Reactions: No Known Allergies Allergy (Verified 04/01/17 14:09) Home Medications: See list Folic Acid/Vit B Com W/C [Nephro-[facility] Rx] 1 each PO DAILY 01/07/17 [Last Taken 04/15/17] Calcium Carbonate [Tums 500MG (*)] 1,500 mg PO TIDMEAL 03/11/17 [Last Taken 08/24] - Past Medical History coronary artery disease (Known coronary disease but has not undergone interventional cardiac catheterization), ESRD, GI bleed, GERD (Anemia of chronic disease, H/O UGIB x2 (first on Plavix +ASA, then on ASA alone), esophagitis), hypertension Additional medical history: Anemia of chronic kidney disease; upper GI bleed in the setting of anti-platelet medications, has occurred while on single and double agent therapy; 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; esophagitis - Surgical History Additional surgical history: R IJ tunneled catheter - Family History Additional family history: Mother with CVA and HTN - Social History Smoking Status: Never smoked Additional social history: Continues to work on non-HD days Review of Systems Review of Systems: Physical Exam Physical Exam: Temp Pulse Resp BP Pulse Ox 36.4 C 71 18 181/75 H 99 04/15/17 15:08 04/15/17 15:08 04/15/17 15:08 04/15/17 15:08 04/15/17 15:08 GEN: A+Ox3, SPO HEENT: Dry MM, no trauma CV: RRR, flow murmur RESP: Decreased breath sounds ABD: Soft, NT, ND, TDC EXT: No edema SKIN: No rashes Neuro: Non-focal Lab Data & Imaging Review 04/15/17 15:45 POC Hgb 9.5 gm/dL (13.7-17.5) L 04/15/17 16:41 POC Hct 28 % (40-51) L 04/15/17 16:41 POC Sodium 140 mEq/L (134-144) 04/15/17 16:41 Sodium 140 mEq/L (134-144) 04/15/17 15:45 POC Potassium 6.5 mEq/L (3.3-5.0) H* 04/15/17 16:41 Potassium 7.0 mEq/L (3.5-5.2) H* 04/15/17 15:45 POC Chloride 107 mEq/L (97-110) 04/15/17 16:41 Chloride 102 mEq/L (97-110) 04/15/17 15:45 Carbon Dioxide 13 mEq/l (22-31) L 04/15/17 15:45 Anion Gap 25 mEq/L (8-16) H 04/15/17 15:45 POC BUN > 140 mg/dL (7-23) H* 04/15/17 16:41 BUN 145 mg/dL (7-23) H* 04/15/17 15:45 Creatinine 17.6 mg/dL (0.7-1.3) H* 04/15/17 15:45 POC Creatinine 18.0 mg/dL (0.7-1.3) H* 04/15/17 16:41 Estimated GFR 3 04/15/17 15:45 Glucose 114 mg/dL (70-100) H 04/15/17 15:45 POC Glucose 104 mg/dL (70-100) H 04/15/17 16:41 Calcium 8.3 mg/dL (8.5-10.4) L 04/15/17 15:45 Specimen Hemolysis 115 04/15/17 15:45 Assessment & Plan Assessment: ESRD: lacks benefits for regular outpatient HD. - HD for 2 hr tonight for acute hyperkalemia - HD tomorrow then reassess - social work consult for Medicare status - will give mannitol for BUN>100 - Pt to return to ER prn emergent dialysis needs. Hyperkalemia: - shifted in ED - patient also given D5 for h/o hypoglycemia - renal diet Metabolic acidosis: Will improve with HD. Hypervolemia: will modulate further with HD today. Anemia: Hb 9.4g/dL -will consider EPO dose prior to discharge
[2017-04-15] MEDS ORDERED: MANNITOL 20% 50 GM/250 ML BAG IV ONE (19:45)
[2017-04-16] MEDS ORDERED: HEPARIN 50,000 UNIT/10 ML VIAL ONE (02:02)
[2017-04-16 05:32] LABS: HEMATOCRIT 21.6 % (40.0-51.0); HEMOGLOBIN 7.5 g/dL (13.7-17.5); MEAN CELL HEMOGLOBIN 31.1 pg (27.9-34.1); MEAN CELL HEMOGLOBIN CONCENTR. 34.7 g/dL (32.4-36.7); MEAN CELL VOLUME 89.6 fL (81.5-99.8); RED BLOOD CELL COUNT 2.41 10^6/uL (4.40-6.38); RED CELL DISTRIBUTION WIDTH 15.4 % (11.5-15.2)
[2017-04-16 06:58] LABS: ALBUMIN 3.4 g/dL (3.5-5.0); ANION GAP 15 mEq/L (8-16); CALCIUM 8.1 mg/dL (8.5-10.4); CARBON DIOXIDE 24 mEq/l (22-31); CHLORIDE 99 mEq/L (97-110); GLOMERULAR FILTRATION RATE 5; GLUCOSE 131 mg/dL (70-100); POTASSIUM 4.6 mEq/L (3.5-5.2); SODIUM 138 mEq/L (134-144)
[2017-04-16 07:01] LABS: CREATININE 10.2 mg/dL (0.7-1.3)
[2017-04-16] MEDS ORDERED: CHOLECALCIFEROL VIT D3 50,000 UNIT CAP PO SCH (09:00)
[2017-04-16] MEDS: CALCIUM CARBONATE 500 MG CHEWABLE TAB PO SCH ×3 (10:11→22:32)
[2017-04-16] MEDS: SODIUM BICARBONATE 650 MG TAB PO SCH (10:11)
[2017-04-16] MEDS: PANTOPRAZOLE SODIUM 40 MG TAB PO SCH (10:11)
[2017-04-16] MEDS: ATORVASTATIN CALCIUM 40 MG TAB PO SCH (10:11)
[2017-04-16] MEDS: NEPHROVITE FOLIC ACID/VIT B&C 1 TAB PO SCH (10:15)
--- NOTE | 2017-04-16 10:40 | SOAPPROG ---
SOAP Progress Note Assessment/Plan: Assessment: 1. ESRD without benefits Emergent HD last pm. HD today, then DC. Catheter site and function ok. 2. Anemia Stable 3. BP Improving with UF 4. RLE wound Wound care consult Plan: 04/16/17 10:38 Subjective: No complaints Objective: Vital Signs Temp Pulse Resp BP Pulse Ox 36.5 C 71 18 153/81 H 98 04/16/17 08:31 04/16/17 08:31 04/16/17 08:31 04/16/17 08:31 04/16/17 08:31 Laboratory Results 04/16/17 03:55 04/16/17 03:55 04/15/17 04/16/17 04/17/17 05:59 05:59 05:59 Intake Total 400 Balance 400 Physical Exam - Physical Exam General Appearance: no apparent distress Neck: other (catheter site good) Respiratory: lungs clear Cardiac/Chest: regular rate, rhythm, systolic murmur Extremities: other (1-2+ B LE edema, Right ankle wrapped) Neuro/Psych: oriented x 3 ICD10 Worksheet Patient Problems: Problems Problem Status Onset End stage renal disease Acute Hyperkalemia, diminished renal excretion Acute Uremia Acute Abdominal pain Acute Acute renal failure Acute Acute upper GI bleed Acute Anemia Acute Anemia associated with acute blood loss Acute Anemia, chronic disease Acute Chronic renal failure Acute Diarrhea Acute ESRD (end stage renal disease) Acute End stage renal disease Acute End stage renal disease Acute Hyperkalemia Acute Hyperkalemia Acute Hyperkalemia Acute Hyperkalemia Acute Hyperkalemia Acute Hyperkalemia Acute Hyperkalemia Acute Hyperkalemia Acute Hyperkalemia Acute Hyperkalemia Acute Hypertension Acute Hypocalcemia Acute Kidney failure Acute Kidney failure Acute Kidney failure Acute Metabolic acidosis Acute Renal failure Acute Shingles (herpes zoster) polyneuropathy Acute Uremia Acute
--- NOTE | 2017-04-16 13:54 | ASMTCMCOM ---
CM Note CM Note Notes: 04/16/2017 Case Management Note: Reviewed chart, spoke with RN. Pt is well known pt to [facility], admitted for emergent dialysis. Pt has primary MD from [facility]. Case Management d/c poc: home w/family support to follow up as directed when medically stable. Case Management available if needs change. Date Signed: 04/16/2017 01:53 PM Electronically Signed By:Shanelle Zamorano RN
--- NOTE | 2017-04-16 17:55 | HOSPPROG ---
Hospitalist Progress Note Assessment/Plan: 67 yo M with PMH of ESRD without access to OP HD pw hyperkalemia # hyperkalemia: requiring emergent HD, another run today, continue to monitor and HD as needed # ESRD: without access to OP HD, as above # metabolic acidosis: in setting of ESRD, improving with HD, Na bicarb # hypervolemia: managing volume with HD # anemia: 2/2 anemia of ckd, monitoring IP status Patient new to my care. Old records reviewed/summarized as above. Subjective: no significant overnight events, Objective: Vital Signs Temp Pulse Resp BP Pulse Ox 36.5 C 77 18 168/84 H 95 04/16/17 11:35 04/16/17 11:35 04/16/17 11:35 04/16/17 11:35 04/16/17 11:35 Laboratory Results 04/16/17 03:55 04/16/17 03:55 04/15/17 04/16/17 04/17/17 05:59 05:59 05:59 Intake Total 400 Balance 400 awake alert nad anicteric op clear rrr no mrg cta soft nt nd trace ble edema ICD10 Worksheet Patient Problems: Problems Problem Status Onset Acute renal failure Acute Anemia Acute Abdominal pain Acute Hyperkalemia Acute Hypocalcemia Acute Renal failure Acute Hypertension Acute Acute upper GI bleed Acute Anemia associated with acute blood loss Acute End stage renal disease Acute Metabolic acidosis Acute Diarrhea Acute Shingles (herpes zoster) polyneuropathy Acute Kidney failure Acute Hyperkalemia Acute Chronic renal failure Acute Hyperkalemia Acute Kidney failure Acute Hyperkalemia Acute Kidney failure Acute Uremia Acute Hyperkalemia Acute Hyperkalemia Acute Hyperkalemia Acute Hyperkalemia Acute Uremia Acute Hyperkalemia Acute End stage renal disease Acute Hyperkalemia Acute ESRD (end stage renal disease) Acute Anemia, chronic disease Acute End stage renal disease Acute Hyperkalemia, diminished renal excretion Acute
[2017-04-17 04:54] LABS: ANION GAP 13 mEq/L (8-16); CALCIUM 8.2 mg/dL (8.5-10.4); CARBON DIOXIDE 27 mEq/l (22-31); CHLORIDE 99 mEq/L (97-110); GLOMERULAR FILTRATION RATE 8; GLUCOSE 100 mg/dL (70-100); SODIUM 139 mEq/L (134-144)
[2017-04-17 08:28] VITALS: RESP 14
[2017-04-17] MEDS: CALCIUM CARBONATE 500 MG CHEWABLE TAB PO SCH ×2 (09:18→12:45)
[2017-04-17] MEDS: SODIUM BICARBONATE 650 MG TAB PO SCH (09:18)
[2017-04-17] MEDS: PANTOPRAZOLE SODIUM 40 MG TAB PO SCH (09:18)
[2017-04-17] MEDS: NEPHROVITE FOLIC ACID/VIT B&C 1 TAB PO SCH (09:18)
[2017-04-17] MEDS: ATORVASTATIN CALCIUM 40 MG TAB PO SCH (09:18)
--- NOTE | 2017-04-17 11:32 | PDDCSUM ---
Discharge Summary Discharge Summary: DAtes of service 04/15-04/17/17 Consultations: renal procedures: HD Hospital course by problem: # hyperkalemia: requiring emergent HD x 2, lytes improved, return precautions/ dietary precautions stressed # ESRD: without access to OP HD, as above # metabolic acidosis: in setting of ESRD, improving with HD, continue Na bicarb # hypervolemia: managing volume with HD # anemia: 2/2 anemia of ckd, h/h low but not symptomatic, will hold off on tx, will need epo at next hd dc home f/u with PCP return to ER for s/s hyperK, volume overload >35 min in dc more than half in coordination of care
[2017-04-17 11:34] VITALS: BP 152/77; PULSE 86; TEMP 98.3; O2SAT 89
--- NOTE | 2017-04-17 16:17 | ASDISCHSUM ---
Discharge Information Plan Status:Home with No Needs Medically Cleared to Leave:04/17/2017 Discharge Date:04/17/2017 03:05 PM CM D/C Disposition:Home, Routine, Self-Care ADT D/C Disposition:Home, Routine, Self-Care Projected Discharge Date:04/17/2017 03:05 PM Transportation at D/C:Family Discharge Delay Reason: Follow-Up Date:04/17/2017 03:05 PM Discharge Slot: Final Diagnosis: Placement Information Patient Contact Information Contact Name:KAVITA Relationship:Geoffrey Address: Work Phone: City: [facility] Phone: [facility] Code: Email: Financial Information Financial Class:Self-Pay Primary Plan Desc:WE CARE Primary Plan Number:99 Secondary Plan Desc: Secondary Plan Number: Assessment Information [facility] CM Progress Note CM Note CM Note Notes: 04/16/2017 Case Management Note: Reviewed chart, spoke with RN. Pt is well known pt to [facility], admitted for emergent dialysis. Pt [facility]. Case Management d/c poc: home w/family support to follow up as directed when medically stable. Case Management available if needs change. Date Signed: 04/16/2017 01:53 PM Electronically Signed By:Shanelle Zamorano RN [facility] CM Progress Note CM Note CM Note Notes: 04/17/2017 Case Management Note: At request of Olimpia Haddad, contacted [facility] to fax medical records. [facility] Fax #: [phone] [facility] Jovanna Hanna RN to review records and assume cares at [facility]. Per Jovanna care at [facility] may potentially start as early as this Saturday. Faxed the following at Jovanna's request: Most recent chest xray Hep B panel most recent hemodialysis flow sheets date of first day of hemodialysis (09/18/2016) and the following nephorologist Dr. Negro information. Jovanna to contact Annabel Monique or Olimpia Haddad with further questions. Pt d/c today in care of family. Evelia to contact pt when everything is in place and services can start with [facility]. Date Signed: 04/17/2017 04:16 PM Electronically Signed By:Shanelle Zamorano RN Intervention Information
--- NOTE | 2017-04-17 16:17 | ASMTCMCOM ---
CM Note CM Note Notes: 04/17/2017 Case Management Note: At request of Olimpia Haddad, contacted [facility] to fax medical records. [facility] Fax #: [phone] [facility] Jovanna Hanna RN to review records and assume cares at [facility]. Per Jovanna care at [facility] may potentially start as early as this Saturday. Faxed the following at Jovanna's request: Most recent chest xray Hep B panel most recent hemodialysis flow sheets date of first day of hemodialysis (09/18/2016) and the following nephorologist Dr. Negro information. Jovanna to contact Annabel Monique or Olimpia Haddad with further questions. Pt d/c today in care of family. Evelia to contact pt when everything is in place and services can start with [facility]. Date Signed: 04/17/2017 04:16 PM Electronically Signed By:Shanelle Zamorano RN
== END 2017-04-17 15:05 | disposition home or self-care (01) | DRG 640 ==
LOC: OBSVTOIN 18:11 → F2W 21:50
PROVIDERS: ADMIT Hospitalist; ATTEND Internal Medicine
PROC: 5A1D70Z Performance of Urinary Filtration, Intermittent, Less than 6 Hours Per Day (ICD-10-PCS; principal; 2017-04-15)
DX: E87.5 Hyperkalemia (principal); N18.6 End stage renal disease; E87.79 Other fluid overload; E87.2 Acidosis; D63.1 Anemia in chronic kidney disease; I25.10 Atherosclerotic heart disease of native coronary artery without angina pectoris; M10.9 Gout, unspecified; I12.0 Hypertensive chronic kidney disease with stage 5 chronic kidney disease or end stage renal disease; Z99.2 Dependence on renal dialysis
CPT/HCPCS: 82947-QW; 96365; J0610; J1644; J1815

== ENCOUNTER 2017-04-22 14:59 | Inpatient (IN) | payer OTHER ==
--- NOTE | 2017-04-22 16:04 | ASMTCMCOM ---
CM Note CM Note Notes: Patient presented to ED requesting dialysis. I tried to remind him about the new plan in place for him to get dialysis as an outpatient at [facility] (see Case Management note 04/17) but patient seemed unaware of this plan. When I spoke with Evelia, they confirmed that he has a chair time there at 3:40 MWF but that they had not been able to contact him. When I ask patient his phone number, he gives me the number that is listed in his demographics, although [facility] had been attempting to reach him this way. I spoke with Annabel Monique dependency case manager of CM dept who said that we should admit patient for dialysis and then throroughly explain the new procedure to him. 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 CM will follow. Date Signed: 04/22/2017 04:03 PM Electronically Signed By:Gin Montero RN
--- NOTE | 2017-04-22 16:06 | EDPHY ---
H & P Time Seen by Provider: 04/22/17 16:04 HPI/ROS: CHIEF COMPLAINT: Diarrhea, here for dialysis HISTORY OF PRESENT ILLNESS: 67-year-old man with end-stage renal disease and no access to outpatient dialysis, was dialyzed approximately week ago on 04/15. Arrives with diarrhea which is his usual symptom when he gets uremic. REVIEW OF SYSTEMS: Eye: no change in vision ENT: no sore throat Cardiac: no chest pain or syncope Pulmonary: Nonproductive cough for 1 week but not short of breath Abdomen: no vomiting or abdominal pain Musculoskeletal: no back pain Skin: Chronic ankle rash unchanged Neuro: no headache Constitutional: no fever : no urinary symptoms A comprehensive 10 point review of systems is otherwise negative aside from elements mentioned in the history of present illness. PAST MEDICAL HISTORY: Includes gout, hypertension, anemia, coronary disease with stenting. History of GI bleed, end-stage renal disease on dialysis. Social history: Continues to work, did a shift yesterday General Appearance: Alert and conversant, cooperative. Eyes: No scleral icterus. ENT, Mouth: Normal mucous membranes. Respiratory: Normal respiratory effort, breath sounds equal, lungs are clear to auscultation. Cardiovascular: Regular rate and rhythm. Gastrointestinal: Abdomen is soft and non tender. Neurological: Alert and normally conversant. Face symmetric, normal movement and sensation in all extremities. Ambulatory. Skin: Chronic right ankle rash, unchanged Musculoskeletal: No peripheral edema and no joint swelling. Psychiatric: Not agitated. Emergency Department course/MDM: I-STAT, EKG, labs. 1807: Potassium 6.5, admission for dialysis for acute hyperkalemia. Patient has a normal electrocardiogram. 1815: Discussed with [facility], plan for medical treatment tonight with dialysis tomorrow. IV sodium bicarbonate 50 meq, IV calcium 10, IV insulin 10 and glucose 25g. Medications given in the emergency department. Smoking Status: Former smoker Constitutional: Initial Vital Signs Temperature (C) 36.5 C 04/22/17 15:06 Heart Rate 83 04/22/17 15:06 Respiratory Rate 16 04/22/17 15:06 Blood Pressure 172/76 H 04/22/17 15:06 O2 Sat (%) 97 04/22/17 15:06 O2 Delivery Mode Room Air Allergies/Adverse Reactions: No Known Allergies Allergy (Verified 04/22/17 15:04) Home Medications: Medication Instructions Recorded Folic Acid/Vit B Com W/C 1 each PO DAILY 01/07/17 [Nephro-Peyton Rx] Calcium Carbonate [Tums 500MG (*)] 1,500 mg PO TIDMEAL 03/11/17 Atorvastatin Calcium [Lipitor 40 80 mg PO DAILY #90 tab 04/03/17 mg (*)] Cholecalciferol Vit D3 [Vitamin D3 50,000 unit PO TU #12 capsule 04/03/17 (*)] Nitroglycerin [Nitrostat 0.4 mg 0.4 mg SL AD PRN #20 btl 04/03/17 (*)] Pantoprazole Sodium [Protonix 40mg 40 mg PO DAILY #30 tab 04/03/17 (*)] Sodium Bicarbonate [Na Bicarb] 1,300 mg PO DAILY #180 tab 04/03/17 amLODIPine BESYLATE [Norvasc 10 mg 10 mg PO DAILY #90 tab 04/03/17 (*)] hydrALAZINE [Apresoline 50 mg (*)] 50 mg PO TID #180 tab 04/03/17 Medical Decision Making - Diagnostics EKG Interpretation: 12-lead EKG interpreted by me; official reading is in trace master. My interpretation is sinus rhythm rate 72, normal intervals. Consult/Admit Bed Type: [facility] 1815, [facility] 1828 Critical Care Time: Critical care time spent by me, Dr. Teran, exclusively with the care of this patient was 30 minutes, exclusive of PA or DIGITAL ARTIST time and exclusive of separate procedures. The organ system at risk was metabolic and I ordered insulin glucose, bicarbonate, calcium, review of studies and discussion with hospitalist and sports medicine specialist to stabilize the patient and prevent worsening of the patient's condition. - Data Points Laboratory Results: Laboratory Results 04/22/17 16:45 04/22/17 16:45 04/22/17 04/22/17 16:45 16:45 WBC 7.26 10^3/uL 10^3/uL (3.80-9.50) RBC 2.42 10^6/uL L 10^6/uL (4.40-6.38) Hgb 7.4 g/dL L g/dL (13.7-17.5) Hct 22.4 % L % (40.0-51.0) MCV 92.6 fL fL (81.5-99.8) MCH 30.6 pg pg (27.9-34.1) MCHC 33.0 g/dL g/dL (32.4-36.7) RDW 15.8 % H % (11.5-15.2) Plt Count 136 10^3/uL L 10^3/uL (150-400) MPV 10.3 fL fL (8.7-11.7) Neut % (Auto) 68.3 % % (39.3-74.2) Lymph % (Auto) 12.4 % L % (15.0-45.0) Becker % (Auto) 6.6 % % (4.5-13.0) Eos % (Auto) 11.7 % H % (0.6-7.6) Baso % (Auto) 0.7 % % (0.3-1.7) Nucleat RBC Rel Count 0.0 % % (0.0-0.2) Absolute Neuts (auto) 4.96 10^3/uL 10^3/uL (1.70-6.50) Absolute Lymphs (auto) 0.90 10^3/uL L 10^3/uL (1.00-3.00) Absolute Monos (auto) 0.48 10^3/uL 10^3/uL (0.30-0.80) Absolute Eos (auto) 0.85 10^3/uL H 10^3/uL (0.03-0.40) Absolute Basos (auto) 0.05 10^3/uL 10^3/uL (0.02-0.10) Absolute Nucleated RBC 0.00 10^3/uL 10^3/uL (0-0.01) Immature Gran % 0.3 % % (0.0-1.1) Immature Gran # 0.02 10^3/uL 10^3/uL (0.00-0.10) Sodium 139 mEq/L mEq/L (134-144) Potassium 6.5 mEq/L H* mEq/L (3.5-5.2) Chloride 101 mEq/L mEq/L (97-110) Carbon Dioxide 16 mEq/l L mEq/l (22-31) Anion Gap 22 mEq/L H mEq/L (8-16) BUN 129 mg/dL H* mg/dL (7-23) Creatinine 17.8 mg/dL H* mg/dL (0.7-1.3) Estimated GFR 3 Glucose 112 mg/dL H mg/dL (70-100) Calcium 7.9 mg/dL L mg/dL (8.5-10.4) Total Bilirubin 0.6 mg/dL mg/dL (0.1-1.4) AST 12 IU/L L IU/L (17-59) ALT 35 IU/L IU/L (21-72) Alkaline Phosphatase 148 IU/L H IU/L (38-126) Total Protein 6.4 g/dL g/dL (6.3-8.2) Albumin 4.3 g/dL g/dL (3.5-5.0) Departure - Departure Disposition: [facility] Inpatient Acute Clinical Impression: Hyperkalemia, End stage renal disease Condition: Good
--- NOTE | 2017-04-22 16:17 | CPEKG ---
Heart Rate: 72 RR Interval: 833 P-R Interval: 156 QRSD Interval: 96 QT Interval: 412 QTC Interval: 451 P Manilla: 76 QRS Manilla: 64 T Wave Man[place]: 69 EKG Severity - NORMAL ECG - EKG Impression: SINUS RHYTHM Electronically Signed By: Esteban Teran 22-Apr-2017 16:23:56
[2017-04-22 16:59] LABS: % IMMATURE GRANULYOCYTES 0.3 % (0.0-1.1); ABSOLUTE IMMATURE GRANULOCYTES 0.02 10^3/uL (0.00-0.10); ADD DIFF? NO; ADD MORPH? NO; ADD SCAN? NO; ATYPICAL LYMPHOCYTE FLAG 0 (0-99); FRAGMENT RBC FLAG 0 (0-99); HEMATOCRIT 22.4 % (40.0-51.0); HEMOGLOBIN 7.4 g/dL (13.7-17.5); LEFT SHIFT FLG 0 (0-99); LIPEMIA HEMOLYSIS FLAG 80 (0-99); MEAN CELL HEMOGLOBIN 30.6 pg (27.9-34.1); MEAN CELL VOLUME 92.6 fL (81.5-99.8); MEAN PLATELET VOLUME 10.3 fL (8.7-11.7); PLATELET CLUMPS FLAG 30 (0-99); PLATELET COUNT 136 10^3/uL (150-400); RED BLOOD CELL COUNT 2.42 10^6/uL (4.40-6.38); RED CELL DISTRIBUTION WIDTH 15.8 % (11.5-15.2)
[2017-04-22 17:15] LABS: ALANINE AMINOTRANSFERASE 35 IU/L (21-72); ALBUMIN 4.3 g/dL (3.5-5.0); ALKALINE PHOSPHATASE 148 IU/L (38-126); ANION GAP 22 mEq/L (8-16); ASPARTATE AMINOTRANSFERASE 12 IU/L (17-59); BILIRUBIN,TOTAL 0.6 mg/dL (0.1-1.4); CALCIUM 7.9 mg/dL (8.5-10.4); CARBON DIOXIDE 16 mEq/l (22-31); CHLORIDE 101 mEq/L (97-110); GLUCOSE 112 mg/dL (70-100); SODIUM 139 mEq/L (134-144); TOTAL PROTEIN 6.4 g/dL (6.3-8.2)
[2017-04-22 18:02] LABS: CREATININE 17.8 mg/dL (0.7-1.3); GLOMERULAR FILTRATION RATE 3; POTASSIUM 6.5 mEq/L (3.5-5.2)
[2017-04-22] MEDS ORDERED: INSULIN REGULAR HUMAN 100 UNIT/ML IVP ONE (18:16)
[2017-04-22] MEDS ORDERED: D50W 25 GM/50 ML SYR IVP ONE (18:16)
[2017-04-22] MEDS ORDERED: SODIUM BICARBONATE 50 MEQ/50 ML SYR IVP ONE (18:16)
[2017-04-22] MEDS ORDERED: CALCIUM GLUCONATE 50 ML IV ONE (18:16)
[2017-04-22] MEDS ORDERED: ACETAMINOPHEN 325 MG TAB PO PRN (18:30)
[2017-04-22] MEDS ORDERED: ONDANSETRON 4 MG/2 ML VIAL IVP PRN (18:30)
[2017-04-22] MEDS ORDERED: ONDANSETRON DISINTEGRATING 4 MG TAB PO PRN (18:30)
--- NOTE | 2017-04-22 19:08 | PDGENHP ---
History and Physical - Chief Complaint Acute diarrhea - History of Present Illness PCP: None HPI: 67-year-old male presents with acute diarrhea characterized as nonbloody, loose watery stool with onset of symptoms on the day prior to presentation, duration persistent thereafter. The character is similar to the diarrhea he experiences when he is uremic. He also has some associated edema located in his bilateral lower extremities with a right lower extremity wound. He has also had a mildly productive cough. He reports that he was supposed to have an appointment at [facility] today, but he did not have all the necessary information in order to go to it. History Information - Allergies/Home Medication List Allergies/Adverse Reactions: No Known Allergies Allergy (Verified 04/22/17 15:04) Home Medications: Folic Acid/Vit B Com W/C [Nephro-Peyton Rx] 1 each PO DAILY 01/07/17 [Last Taken 04/15/17] Calcium Carbonate [Tums 500MG (*)] 1,500 mg PO TIDMEAL 03/11/17 [Last Taken 08/24] I have personally reviewed and updated: family history, medical history, social history, surgical history - Past Medical History coronary artery disease (Known coronary disease but has not undergone interventional cardiac catheterization), ESRD, GI bleed, GERD (Anemia of chronic disease, H/O UGIB x2 (first on Plavix +ASA, then on ASA alone), esophagitis), hypertension Additional medical history: Anemia of chronic kidney disease; upper GI bleed in the setting of anti-platelet medications, has occurred while on single and double agent therapy; 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; esophagitis; right lower extremity wound - Surgical History Additional surgical history: R IJ tunneled catheter - Family History Additional family history: Mother with CVA and HTN - Social History Smoking Status: Former smoker Alcohol Use: None Drug Use: None Additional social history: Continues to work on non-HD days Review of Systems Review of Systems: ROS: 10pt was reviewed & negative except for what was stated in HPI & below Constitutional: Reports: malaise Cardiac: Reports: edema Respiratory: Reports: cough Gastrointestinal: Reports: diarrhea Physical Exam Physical Exam: Temp Pulse Resp BP Pulse Ox 36.5 C 83 16 172/76 H 97 04/22/17 15:06 04/22/17 15:06 04/22/17 15:06 04/22/17 15:06 04/22/17 15:06 Constitutional: no apparent distress, appears nourished, not in pain Eyes: PERRL, anicteric sclera, EOMI Ears, Nose, Mouth, Throat: moist mucous membranes, hearing normal, ears appear normal, no oral mucosal ulcers Cardiovascular: regular rate and rhythym, systolic murmur (1/6 at all valve location), edema (1+ right lower extremity, trace left lower extremity) Respiratory: no respiratory distress, no rales or rhonchi, clear to auscultation Gastrointestinal: normoactive bowel sounds, soft, non-tender abdomen, no palpable masses Skin: other (Right lower extremity covered by bandages, no erythema extending beyond them) Neurologic: AAOx3, sensation intact bilaterally, No weakness, No facial droop Psychiatric: interacting appropriately, not anxious, not encephalopathic, thought process linear Lab Data & Imaging Review 04/22/17 16:45 04/22/17 16:45 WBC 7.26 10^3/uL (3.80-9.50) 04/22/17 16:45 RBC 2.42 10^6/uL (4.40-6.38) L 04/22/17 16:45 Hgb 7.4 g/dL (13.7-17.5) L 04/22/17 16:45 Hct 22.4 % (40.0-51.0) L 04/22/17 16:45 MCV 92.6 fL (81.5-99.8) 04/22/17 16:45 MCH 30.6 pg (27.9-34.1) 04/22/17 16:45 MCHC 33.0 g/dL (32.4-36.7) 04/22/17 16:45 RDW 15.8 % (11.5-15.2) H 04/22/17 16:45 Plt Count 136 10^3/uL (150-400) L 04/22/17 16:45 MPV 10.3 fL (8.7-11.7) 04/22/17 16:45 Neut % (Auto) 68.3 % (39.3-74.2) 04/22/17 16:45 Lymph % (Auto) 12.4 % (15.0-45.0) L 04/22/17 16:45 [place] % (Auto) 6.6 % (4.5-13.0) 04/22/17 16:45 Eos % (Auto) 11.7 % (0.6-7.6) H 04/22/17 16:45 Baso % (Auto) 0.7 % (0.3-1.7) 04/22/17 16:45 Nucleat RBC Rel Count 0.0 % (0.0-0.2) 04/22/17 16:45 Absolute Neuts (auto) 4.96 10^3/uL (1.70-6.50) 04/22/17 16:45 Absolute Lymphs (auto) 0.90 10^3/uL (1.00-3.00) L 04/22/17 16:45 Absolute Monos (auto) 0.48 10^3/uL (0.30-0.80) 04/22/17 16:45 Absolute Eos (auto) 0.85 10^3/uL (0.03-0.40) H 04/22/17 16:45 Absolute Basos (auto) 0.05 10^3/uL (0.02-0.10) 04/22/17 16:45 Absolute Nucleated RBC 0.00 10^3/uL (0-0.01) 04/22/17 16:45 Immature Gran % 0.3 % (0.0-1.1) 04/22/17 16:45 Immature Gran # 0.02 10^3/uL (0.00-0.10) 04/22/17 16:45 Sodium 139 mEq/L (134-144) 04/22/17 16:45 Potassium 6.5 mEq/L (3.5-5.2) H* 04/22/17 16:45 Chloride 101 mEq/L (97-110) 04/22/17 16:45 Carbon Dioxide 16 mEq/l (22-31) L 04/22/17 16:45 Anion Gap 22 mEq/L (8-16) H 04/22/17 16:45 BUN 129 mg/dL (7-23) H* 04/22/17 16:45 Creatinine 17.8 mg/dL (0.7-1.3) H* 04/22/17 16:45 Estimated GFR 3 04/22/17 16:45 Glucose 112 mg/dL (70-100) H 04/22/17 16:45 Calcium 7.9 mg/dL (8.5-10.4) L 04/22/17 16:45 Total Bilirubin 0.6 mg/dL (0.1-1.4) 04/22/17 16:45 AST 12 IU/L (17-59) L 04/22/17 16:45 ALT 35 IU/L (21-72) 04/22/17 16:45 Alkaline Phosphatase 148 IU/L (38-126) H 04/22/17 16:45 Total Protein 6.4 g/dL (6.3-8.2) 04/22/17 16:45 Albumin 4.3 g/dL (3.5-5.0) 04/22/17 16:45 Visualized and Interpreted EKG results: Yes EKG Interpretation: Positive for: other (Normal sinus mechanism without T-wave) Assessment & Plan Assessment: 67-year-old male presenting with acute hyperkalemia in the setting of end-stage renal disease Plan: 1. Hyperkalemia. Acute, new problem this provider, further workup indicated. Potassium 6.5, no evidence of peaked T-waves, will require hemodialysis -discussed with Dr. Esteban Teran, he has reported to me that per Dr. Akhtar instructions, the patient is to get hemodialysis tomorrow -temporizing measures including sodium bicarb amp, calcium gluconate, hold on Kayexalate given the patient is already having diarrhea -monitor on telemetry -repeat serum potassium level in a.m. 2. ESRD. Chronic, no access to outpatient dialysis -the patient reports that discussions have been under for him to receive dialysis at [facility], request that case management met with the patient tomorrow to discuss exact plans 3. Anemia of chronic kidney disease. Reviewed outside records including [address] Wilder Ruiz, she reports the patient received no blood transfusion during last hospitalization, recommended Epo with this dialysis session -continue to monitor hemoglobin 4. Uremia. Acute symptoms, receive hemodialysis in a.m., monitor symptoms 5. Possible Pressure injury. Present on admission, right lower extremity, wound care consult appreciated 6. Coronary artery disease. Chronic, continue home medications 7. Hypertension. Chronic, continue home medications once reconciled Diet. Renal Prophylaxis. High risk patient heparin subcu Code. Full Disposition. Anticipated discharge uncertain this time, anticipated length stay is greater than 48 hours warranting inpatient admission status reasonable medical necessity including acute hyperkalemia and end-stage renal disease in the setting of high risk comorbid conditions requiring emergent hemodialysis, most likely for several days.
[2017-04-22] MEDS ORDERED: CALCIUM GLUC 10% 1 GM/10 ML VIAL ONE (19:51)
[2017-04-22] MEDS ORDERED: NITROGLYCERIN 0.4 MG BTL SL PRN (20:19)
[2017-04-22] MEDS: HEPARIN 5,000 UNIT/0.5 ML SYR SC SCH (22:18)
[2017-04-23 04:51] LABS: HEMATOCRIT 20.4 % (40.0-51.0)
[2017-04-23 04:57] LABS: HEMOGLOBIN 6.6 g/dL (13.7-17.5)
[2017-04-23 05:18] LABS: ANION GAP 22 mEq/L (8-16); CALCIUM 7.6 mg/dL (8.5-10.4); CARBON DIOXIDE 15 mEq/l (22-31); CHLORIDE 105 mEq/L (97-110); GLUCOSE 91 mg/dL (70-100); SODIUM 142 mEq/L (134-144)
[2017-04-23 05:25] LABS: GLOMERULAR FILTRATION RATE 3
[2017-04-23 05:27] LABS: CREATININE 17.6 mg/dL (0.7-1.3)
[2017-04-23] MEDS ORDERED: SODIUM POLY SULF 15 GM/60 ML BOTTLE PO ONE (06:25)
[2017-04-23] MEDS: HEPARIN 5,000 UNIT/0.5 ML SYR SC SCH ×2 (06:35→11:48)
[2017-04-23] MEDS: CALCIUM CARBONATE 500 MG CHEWABLE TAB PO SCH ×3 (08:55→17:26)
[2017-04-23] MEDS ORDERED: CHOLECALCIFEROL VIT D3 50,000 UNIT CAP PO SCH (09:00)
--- NOTE | 2017-04-23 09:46 | PDMN ---
Medical Necessity Medical necessity: Patient meets inpatient criteria per MD note: patient presents w/diarrhea d/t uremia and need for emergent dialysis; hyperkalemia/K+ 6.5; anemia of CKD; anion gap 22; hx CAD, ESRD, GIB, GERD, HTN; anticipated LOS > 2 midnights for temporizing measures of IV Na Bicarb, Ca Gluconate prior to emergent hemodialysis.
--- NOTE | 2017-04-23 09:55 | HOSPPROG ---
Hospitalist Progress Note Assessment/Plan: #ESRD: has outpatient HD. Will need fistula, Dr Betancur to evaluate #Severe life-threatening hyperkalemia: HD today. Declined kaxeylate. Telemetry #Anemia of renal dz: no active bleeding. Transfuse 1 unit today #h/o GIB: denies bleeding #CAD: no ASA with GIB. Not on BB with h/o bradycardia #Volume overload: HD today #Symptomatic uremia: HD #Dermatitis left leg: no e/o cellulitis #Diet: renal #DVT ppx: SCDs #Disp: warrants inpt admission with hyperkalemia, requires HD, telemetry and transfusion Subjective: fatigued. No bleeding. LE edema Objective: Vital Signs Temp Pulse Resp BP Pulse Ox 36.9 C 72 18 157/87 H 94 04/23/17 04:00 04/23/17 04:00 04/23/17 04:00 04/23/17 04:00 04/23/17 04:00 Laboratory Results 04/23/17 04:13 04/23/17 04:13 04/22/17 04/23/17 04/24/17 05:59 05:59 05:59 Intake Total 400 Balance 400 - Physical Exam Constitutional: other (fatigued) Eyes: PERRL Ears, Nose, Mouth, Throat: moist mucous membranes Cardiovascular: regular rate and rhythym, edema (+2-3 LE edema) Respiratory: reduced air movement Gastrointestinal: normoactive bowel sounds, soft, non-tender abdomen Genitourinary: no bladder fullness Skin: warm, other (dermatitis left leg, no cellulitis) Musculoskeletal: full muscle strength Neurologic: AAOx3, CN II-XII Intact Psychiatric: interacting appropriately ICD10 Worksheet Patient Problems: Problems Problem Status Onset Acute renal failure Acute Anemia Acute Abdominal pain Acute Hyperkalemia Acute Hypocalcemia Acute Renal failure Acute Hypertension Acute Acute upper GI bleed Acute Anemia associated with acute blood loss Acute End stage renal disease Acute Metabolic acidosis Acute Diarrhea Acute Shingles (herpes zoster) polyneuropathy Acute Kidney failure Acute Hyperkalemia Acute Chronic renal failure Acute Hyperkalemia Acute Kidney failure Acute Hyperkalemia Acute Kidney failure Acute Uremia Acute Hyperkalemia Acute Hyperkalemia Acute Hyperkalemia Acute Hyperkalemia Acute Uremia Acute Hyperkalemia Acute End stage renal disease Acute Hyperkalemia Acute ESRD (end stage renal disease) Acute Anemia, chronic disease Acute End stage renal disease Acute Hyperkalemia, diminished renal excretion Acute
--- NOTE | 2017-04-23 10:13 | WOCRNPDOC ---
WOCRN Advanced Assessment Note - Skin Integrity Problem, Advanced Assess Right Lower Leg Venous Stasis Ulcer Dressing Type: Lloyd Dressing Description: Clean/Dry, Intact Exudate Amount: None Integumentary Issue Intervention: Dressing Removed Joan Wound Tissue: Lipodermatosclerosis, Hemosiderin Staining, Venous Dermatitis , Xerotic Skin Integrity Problem Comment: Patient well known to our service who is historically non compliant with compression and wound care recommendations. No open/weeping wounds noted, however there is a large area of venous dermatitis circumferentially around right distal gaiter area. Discussed need to keep legs elevated. BJORN Haney will approach patient today when he is back from dialysis to see if he will be amenable to compression. If so spandigrip will be provided. Wound care will sign off.
--- NOTE | 2017-04-23 10:28 | SOAPPROG ---
SOAP Progress Note Assessment/Plan: Assessment: Juan Manuel is well known to our service. He is being dialyzed emergently due to elevated K. His BP is elevated, and he is volume overloaded. He will likely need one more run of dialysis tomorrow, although this could be done as an outpatient if dialysis is improved. He is also quite anemic. Will follow for need for transfusion. I will also discuss fistula placement with Dr. Betancur. He has venous stasis dermatitis on his L ankle. He does not have an open wound. Plan: 04/23/17 10:23 Subjective: Doing fair Objective: Vital Signs Temp Pulse Resp BP Pulse Ox 36.9 C 72 18 157/87 H 94 04/23/17 04:00 04/23/17 04:00 04/23/17 04:00 04/23/17 04:00 04/23/17 04:00 Laboratory Results 04/23/17 04:13 04/23/17 04:13 04/22/17 04/23/17 04/24/17 05:59 05:59 05:59 Intake Total 400 Balance 400 Physical Exam - Physical Exam General Appearance: no apparent distress Neck: other (line site ok) Respiratory: decreased breath sounds Cardiac/Chest: regular rate, rhythm, systolic murmur Extremities: normal inspection Neuro/Psych: oriented x 3 ICD10 Worksheet Patient Problems: Problems Problem Status Onset End stage renal disease Acute Hyperkalemia Acute Abdominal pain Acute Acute renal failure Acute Acute upper GI bleed Acute Anemia Acute Anemia associated with acute blood loss Acute Anemia, chronic disease Acute Chronic renal failure Acute Diarrhea Acute ESRD (end stage renal disease) Acute End stage renal disease Acute End stage renal disease Acute Hyperkalemia Acute Hyperkalemia Acute Hyperkalemia Acute Hyperkalemia Acute Hyperkalemia Acute Hyperkalemia Acute Hyperkalemia Acute Hyperkalemia Acute Hyperkalemia Acute Hyperkalemia, diminished renal excretion Acute Hypertension Acute Hypocalcemia Acute Kidney failure Acute Kidney failure Acute Kidney failure Acute Metabolic acidosis Acute Renal failure Acute Shingles (herpes zoster) polyneuropathy Acute Uremia Acute Uremia Acute
[2017-04-23] MEDS: SODIUM BICARBONATE 650 MG TAB PO SCH (11:31)
[2017-04-23] MEDS: NEPHROVITE FOLIC ACID/VIT B&C 1 TAB PO SCH (11:32)
[2017-04-23] MEDS: ATORVASTATIN CALCIUM 40 MG TAB PO SCH (11:32)
[2017-04-23] MEDS: PANTOPRAZOLE SODIUM 40 MG TAB PO SCH (11:32)
--- NOTE | 2017-04-23 13:15 | ASMTCMCOM ---
CM Note CM Note Notes: I met with patient with field radio technician Elaine to clarify the new plan that [facility] has faciliated for his dialysis treatments. Patient is to now receive dialysis at [facility] in [place], where he has a 3:40PM chair time (needs to be there by 3:15) MWF. Per Evelia Nugent, [facility] had not been able to contact patient despite multiple attempts. Patient states that his cell phone has not been turned on and that his son has been in [place] working. We discussed the importance of having a working phone, and if that is not possible, the importance of patient contacting [facility] if he is unable to make an appointment. We also discussed the importance of prioritizing the MWF schedule at [facility] since it is ultimately better for the patient's health. He offered some initial resistance due to the inconvenience around his work schedule, but he ultimately expressed understanding. I offered to draft a letter to his employer, but he thinks he will be able to work things out. Per notes today, patient may need a blood transfusion, as well as a fistula placement. It is likely he will be dialyzed here tomorrow, rather than at [facility]. I spoke w Dr Negro who says it will be fine to call [facility] tomorrow AM (they are closed today) and let them know patient's status. I also explained this to patient, emphasizing that he will likely begin his dialysis treatment at [facility] on Thursday 04/26 and he should call his employer as soon as possible to inform him. Again, patient expressed understanding. CM will follow and ensure that patient has all of [facility]'s contact information and appointment times in writing before he leaves the hospital. Date Signed: 04/23/2017 01:15 PM Electronically Signed By:Gin Montero RN
[2017-04-23] MEDS ORDERED: HEPARIN 50,000 UNIT/10 ML VIAL ONE (13:40)
[2017-04-23 17:05] LABS: HEMOGLOBIN 9.7 g/dL (13.7-17.5)
[2017-04-23 17:24] LABS: ANION GAP 19 mEq/L (8-16); CALCIUM 8.4 mg/dL (8.5-10.4); CARBON DIOXIDE 26 mEq/l (22-31); CHLORIDE 95 mEq/L (97-110); GLOMERULAR FILTRATION RATE 6; GLUCOSE 106 mg/dL (70-100); POTASSIUM 4.3 mEq/L (3.5-5.2); SODIUM 140 mEq/L (134-144)
[2017-04-23 17:26] LABS: CREATININE 9.1 mg/dL (0.7-1.3)
--- NOTE | 2017-04-23 18:07 | SOAPPROG ---
SOAP Progress Note Assessment/Plan: Assessment: 67-YEAR-OLD MALE KNOWN TO ME NEW SHOWS A PERIODICALLY FOR DIALYSIS VIA A PALINDROMIC CATHETER HE IS IN NEED OF AN AV FISTULA BUT HAS REFUSED IN THE PAST AND IS QUITE HESITANT AT THIS POINT WELL CURRENTLY HAS IVS IN HIS LEFT ARM WHICH COULD INTERFERE WITH OUR AV FISTULA ACCESS Plan: AV FISTULA TOMORROW IF HE IS WILLING 04/23/17 18:06 Objective: Vital Signs Temp Pulse Resp BP Pulse Ox 36.5 C 74 16 162/87 H 95 04/23/17 16:00 04/23/17 16:00 04/23/17 16:00 04/23/17 16:06 04/23/17 16:00 Laboratory Results 04/23/17 16:50 04/23/17 16:50 04/22/17 04/23/17 04/24/17 05:59 05:59 05:59 Intake Total 400 500 Balance 400 500 ICD10 Worksheet Patient Problems: Problems Problem Status Onset End stage renal disease Acute Hyperkalemia Acute Abdominal pain Acute Acute renal failure Acute Acute upper GI bleed Acute Anemia Acute Anemia associated with acute blood loss Acute Anemia, chronic disease Acute Chronic renal failure Acute Diarrhea Acute ESRD (end stage renal disease) Acute End stage renal disease Acute End stage renal disease Acute Hyperkalemia Acute Hyperkalemia Acute Hyperkalemia Acute Hyperkalemia Acute Hyperkalemia Acute Hyperkalemia Acute Hyperkalemia Acute Hyperkalemia Acute Hyperkalemia Acute Hyperkalemia, diminished renal excretion Acute Hypertension Acute Hypocalcemia Acute Kidney failure Acute Kidney failure Acute Kidney failure Acute Metabolic acidosis Acute Renal failure Acute Shingles (herpes zoster) polyneuropathy Acute Uremia Acute Uremia Acute
[2017-04-24 04:45] LABS: HEMATOCRIT 23.7 % (40.0-51.0); HEMOGLOBIN 8.2 g/dL (13.7-17.5); MEAN CELL HEMOGLOBIN 30.6 pg (27.9-34.1); MEAN CELL HEMOGLOBIN CONCENTR. 34.6 g/dL (32.4-36.7); MEAN CELL VOLUME 88.4 fL (81.5-99.8); RED BLOOD CELL COUNT 2.68 10^6/uL (4.40-6.38)
[2017-04-24 05:09] LABS: ANION GAP 14 mEq/L (8-16); CALCIUM 7.3 mg/dL (8.5-10.4); CARBON DIOXIDE 26 mEq/l (22-31); CHLORIDE 98 mEq/L (97-110); GLOMERULAR FILTRATION RATE 5; GLUCOSE 104 mg/dL (70-100); POTASSIUM 5.8 mEq/L (3.5-5.2); SODIUM 138 mEq/L (134-144)
[2017-04-24 05:12] LABS: CREATININE 9.9 mg/dL (0.7-1.3)
--- NOTE | 2017-04-24 08:25 | HOSPPROG ---
Hospitalist Progress Note Assessment/Plan: #ESRD: has outpatient HD. Dr. Betancur to do fistula this eliecer #Severe life-threatening hyperkalemia: HD x 2 #Anemia of renal dz: no active bleeding. H/H responded to 1 unit #h/o GIB: denies bleeding #CAD: no ASA with GIB. Not on BB with h/o bradycardia #Volume overload: HD today #Symptomatic uremia: HD #Dermatitis left leg: no e/o cellulitis #Diet: renal #DVT ppx: SCDs #Disp: warrants inpt admission with hyperkalemia, requires HD, telemetry and transfusion. Now has outpatient chair at [facility], Thursday 04/26 @ 3pm Subjective: fatigued. No CP Objective: Vital Signs Temp Pulse Resp BP Pulse Ox 37.0 C 70 17 153/81 H 92 04/24/17 04:00 04/24/17 04:00 04/24/17 00:00 04/24/17 04:00 04/24/17 04:00 Laboratory Results 04/24/17 04:00 04/24/17 04:00 04/23/17 04/24/17 04/25/17 05:59 05:59 05:59 Intake Total 400 800 Balance 400 800 - Physical Exam Constitutional: no apparent distress, other (fatigued) Eyes: PERRL Ears, Nose, Mouth, Throat: moist mucous membranes Cardiovascular: regular rate and rhythym, edema (+2 leg edema) Respiratory: no respiratory distress Gastrointestinal: normoactive bowel sounds Genitourinary: no bladder fullness Skin: warm Musculoskeletal: full muscle strength Neurologic: AAOx3, CN II-XII Intact ICD10 Worksheet Patient Problems: Problems Problem Status Onset End stage renal disease Acute Hyperkalemia Acute Abdominal pain Acute Acute renal failure Acute Acute upper GI bleed Acute Anemia Acute Anemia associated with acute blood loss Acute Anemia, chronic disease Acute Chronic renal failure Acute Diarrhea Acute ESRD (end stage renal disease) Acute End stage renal disease Acute End stage renal disease Acute Hyperkalemia Acute Hyperkalemia Acute Hyperkalemia Acute Hyperkalemia Acute Hyperkalemia Acute Hyperkalemia Acute Hyperkalemia Acute Hyperkalemia Acute Hyperkalemia Acute Hyperkalemia, diminished renal excretion Acute Hypertension Acute Hypocalcemia Acute Kidney failure Acute Kidney failure Acute Kidney failure Acute Metabolic acidosis Acute Renal failure Acute Shingles (herpes zoster) polyneuropathy Acute Uremia Acute Uremia Acute
[2017-04-24] MEDS: CALCIUM CARBONATE 500 MG CHEWABLE TAB PO SCH ×3 (09:15→17:28)
[2017-04-24] MEDS: PANTOPRAZOLE SODIUM 40 MG TAB PO SCH (10:04)
[2017-04-24] MEDS: ATORVASTATIN CALCIUM 40 MG TAB PO SCH (10:04)
--- NOTE | 2017-04-24 10:45 | SOAPPROG ---
JACQUELINE Progress Note Assessment/Plan: Assessment: ESRD Need for AVF hyperkalemia Plan: HD today possible AVF after HD today HD tomorrow 04/24/17 10:42 Subjective: Seen on HD today feels OK denies cp sob nausea or pain spirits good considering AVF Objective: Vital Signs Temp Pulse Resp BP Pulse Ox 37.0 C 70 17 153/81 H 92 04/24/17 04:00 04/24/17 04:00 04/24/17 00:00 04/24/17 04:00 04/24/17 04:00 Laboratory Results 04/24/17 04:00 04/24/17 04:00 04/23/17 04/24/17 04/25/17 05:59 05:59 05:59 Intake Total 400 800 Balance 400 800 Physical Exam - Physical Exam General Appearance: WD/WN, alert Respiratory: No rhonchi, No wheezing Cardiac/Chest: regular rate, rhythm, No edema, No gallop, No friction rub Abdomen: normal bowel sounds, non-tender, soft Extremities: No swelling Neuro/Psych: alert, normal mood/affect, oriented x 3 ICD10 Worksheet Patient Problems: Problems Problem Status Onset End stage renal disease Acute Hyperkalemia Acute Abdominal pain Acute Acute renal failure Acute Acute upper GI bleed Acute Anemia Acute Anemia associated with acute blood loss Acute Anemia, chronic disease Acute Chronic renal failure Acute Diarrhea Acute ESRD (end stage renal disease) Acute End stage renal disease Acute End stage renal disease Acute Hyperkalemia Acute Hyperkalemia Acute Hyperkalemia Acute Hyperkalemia Acute Hyperkalemia Acute Hyperkalemia Acute Hyperkalemia Acute Hyperkalemia Acute Hyperkalemia Acute Hyperkalemia, diminished renal excretion Acute Hypertension Acute Hypocalcemia Acute Kidney failure Acute Kidney failure Acute Kidney failure Acute Metabolic acidosis Acute Renal failure Acute Shingles (herpes zoster) polyneuropathy Acute Uremia Acute Uremia Acute
[2017-04-24] MEDS: SODIUM BICARBONATE 650 MG TAB PO SCH (12:26)
[2017-04-24] MEDS: NEPHROVITE FOLIC ACID/VIT B&C 1 TAB PO SCH (12:27)
[2017-04-24] MEDS ORDERED: HEPARIN 50,000 UNIT/10 ML VIAL ONE (13:19)
[2017-04-24] MEDS ORDERED: THROMBIN (BOVINE) 5,000 UNIT VIAL TP ONE (17:00)
[2017-04-24] MEDS ORDERED: THROMBIN (BOVINE) 20,000 UNIT SPRAY TP ONE (17:00)
[2017-04-24] MEDS ORDERED: PAPAVERINE HCL 60 MG/2 ML SDV ONE (17:01)
[2017-04-24] MEDS ORDERED: BUPIVACAINE 0.5% 30 ML SDV ONE (17:01)
[2017-04-24] MEDS ORDERED: PROTAMINE SULFATE 50 MG/5 ML VIAL IVP ONE ×2 (17:01→17:03)
[2017-04-24] MEDS ORDERED: ceFAZolin 2 GM/DEXTROSE 100 ML IV ONE (17:14)
[2017-04-24] MEDS ORDERED: ceFAZolin 2 GM in D5W 100 ML IV ONE (17:30)
--- NOTE | 2017-04-24 17:34 | PDANEPAE ---
ANE Past Medical History - Cardiovascular History Hx Hypertension: Yes - Pulmonary History Hx Oxygen in Use at Home: No Hx Sleep Apnea: No Sleep Apnea Screening Result - Last Documented: Positive - Endocrine History Hx Diabetes: No - Renal History Hx Renal Disorders: Yes Renal History Comment: ESRD, uremia - GI History Hx Gastrointestinal Disorders: Yes - Chronic Pain History Chronic Pain: No ANE Review of Systems Review of Systems: ANE Patient History - Allergies Allergies/Adverse Reactions: No Known Allergies Allergy (Verified 04/22/17 15:04) - Home Medications Home Medications: Folic Acid/Vit B Com W/C [Nephro-Peyton Rx] 1 each PO DAILY 01/07/17 [Last Taken 04/22/17] Calcium Carbonate [Tums 500MG (*)] 1,500 mg PO TIDMEAL 03/11/17 [Last Taken ] - NPO status NPO Since - Liquids (Date): 04/24/01 NPO Since - Liquids (Time): 16:00 NPO Since - Solids (Date): 04/24/17 NPO Since - Solids (Time): 00:00 - Smoking Hx Smoking Status: Former smoker - Alcohol Use Alcohol Use: None ANE Labs/Vital Signs - Labs Result Diagrams: 04/24/17 04:00 04/24/17 04:00 - Vital Signs Blood Pressure: 164/90 Heart Rate: 78 Respiratory Rate: 18 O2 Sat (%): 93 Height: 177.8 cm Weight: 62.284 kg ANE Physical Exam - Airway Mallampati Score: Class 2 - ASA Status ASA Status: IV ANE Anesthesia Plan Anesthesia Plan: GA w LMA
[2017-04-24] MEDS ORDERED: MIDAZOLAM 2 MG/2 ML VIAL ONE (17:38)
[2017-04-24] MEDS ORDERED: fentaNYL 100 MCG/2 ML INJ ONE (17:39)
[2017-04-24] MEDS ORDERED: PROPOFOL 200 MG/20 ML VIAL ONE (17:39)
[2017-04-24] MEDS ORDERED: PHENYLEPHRINE HCL 100 MCG/ML SYR ONE (17:40)
[2017-04-24] MEDS ORDERED: LIDOCAINE 2% JELLY 5 ML TUBE ONE (17:40)
[2017-04-24] MEDS ORDERED: METOCLOPRAMIDE 10 MG/2 ML VIAL ONE (17:40)
--- NOTE | 2017-04-24 19:45 | SOAPPROG ---
SOAP Progress Note Assessment/Plan: Assessment: 67-YEAR-OLD MALE KNOWN TO ME NEW SHOWS A PERIODICALLY FOR DIALYSIS VIA A PALINDROMIC CATHETER HE IS IN NEED OF AN AV FISTULA BUT HAS REFUSED IN THE PAST AND IS QUITE HESITANT AT THIS POINT WELL CURRENTLY HAS IVS IN HIS LEFT ARM WHICH COULD INTERFERE WITH OUR AV FISTULA ACCESS Plan: AV FISTULA TOMORROW IF HE IS WILLING 04/23/17 18:06 04/24/17 19:43 PT WILLING TO PROCEED WITH AVF TODAY/ RISKS AND OPTIONS FULLY DISCUSSED/ US SHOWS VERY SMALL VENOUS OPTIONS PLAN BRACHIO-BASILIC AVF ON LEFT Objective: Vital Signs Temp Pulse Resp BP Pulse Ox 37.1 C 78 18 164/90 H 93 04/24/17 16:54 04/24/17 17:34 04/24/17 17:34 04/24/17 17:34 04/24/17 17:34 Laboratory Results 04/24/17 04:00 04/24/17 04:00 04/23/17 04/24/17 04/25/17 05:59 05:59 05:59 Intake Total 400 800 Balance 400 800 ICD10 Worksheet Patient Problems: Problems Problem Status Onset End stage renal disease Acute Hyperkalemia Acute Abdominal pain Acute Acute renal failure Acute Acute upper GI bleed Acute Anemia Acute Anemia associated with acute blood loss Acute Anemia, chronic disease Acute Chronic renal failure Acute Diarrhea Acute ESRD (end stage renal disease) Acute End stage renal disease Acute End stage renal disease Acute Hyperkalemia Acute Hyperkalemia Acute Hyperkalemia Acute Hyperkalemia Acute Hyperkalemia Acute Hyperkalemia Acute Hyperkalemia Acute Hyperkalemia Acute Hyperkalemia Acute Hyperkalemia, diminished renal excretion Acute Hypertension Acute Hypocalcemia Acute Kidney failure Acute Kidney failure Acute Kidney failure Acute Metabolic acidosis Acute Renal failure Acute Shingles (herpes zoster) polyneuropathy Acute Uremia Acute Uremia Acute
--- NOTE | 2017-04-24 19:47 | POSTOPPROG ---
Post Op Note Date of Operation: 04/24/17 Surgeon: Pb Betancur Anesthesiologist: SWATHI Anesthesia: GET(General Endotracheal) Pre-op Diagnosis: CRF Post-op Diagnosis: SAME Indication: NEED FOR DIALYSIS ACCESS Procedure: US VEIN MAPPING AND LEFT BRACHIO-BASILIC AVF Findings: ADEQUATE BASILIC VEIN 3MM/ CEPHALIC THROMBOSED Inf/Abcess present in the surg proc area at time of surgery?: No Depth: Deep Incisional (Fascial) EBL: Minimal Complications: 0
[2017-04-24] MEDS ORDERED: HYDROCODONE/APAP 5/325 TAB PO PRN (19:48)
[2017-04-24] MEDS ORDERED: ONDANSETRON DISINTEGRATING 4 MG TAB PO PRN (19:48)
[2017-04-24] MEDS ORDERED: fentaNYL 100 MCG/2 ML INJ IVP PRN (19:51)
[2017-04-24] MEDS ORDERED: NS 500 ML IV PRN (19:51)
[2017-04-24] MEDS ORDERED: NALOXONE HCL 0.4 MG/ML INJ IVP PRN (19:51)
--- NOTE | 2017-04-24 19:52 | POSTANESTH ---
Post Anesthetic Evaluation Cardiovascular Status: Similar to Pre-Op Cond Respiratory Status: Normal, Stable Level of Consciousness/Mental Status: Can Participate in Eval Pain Control: Adequate, Prn Tx Ordered Nausea/Vomiting Control: Adequate, Prn Tx Ordered Complications Possibly Related to Anesthesia: None Noted
[2017-04-24 21:02] VITALS: RESP 16
[2017-04-25 05:15] VITALS: TEMP 98.3
[2017-04-25 05:25] LABS: ANION GAP 12 mEq/L (8-16); CALCIUM 7.8 mg/dL (8.5-10.4); CARBON DIOXIDE 27 mEq/l (22-31); CHLORIDE 99 mEq/L (97-110); CREATININE 6.4 mg/dL (0.7-1.3); GLOMERULAR FILTRATION RATE 9; GLUCOSE 124 mg/dL (70-100); POTASSIUM 4.4 mEq/L (3.5-5.2); SODIUM 138 mEq/L (134-144)
--- NOTE | 2017-04-25 08:00 | SOAPPROG ---
JACQUELINE Progress Note Assessment/Plan: Assessment: ESRD hyperkalemia, better Plan: HD today dismiss after HD AVF placed yesterday Has outpatient MWF spot at [facility] 04/24/17 10:42 04/25/17 07:54 Subjective: Arm is a little sore today no cp sob nausea or vomiting spirits good Objective: Vital Signs Temp Pulse Resp BP Pulse Ox 36.8 C 87 16 126/72 H 97 04/25/17 04:00 04/25/17 04:00 04/25/17 04:00 04/25/17 04:00 04/25/17 04:00 Laboratory Results 04/24/17 04:00 04/25/17 04:03 04/24/17 04/25/17 04/26/17 05:59 05:59 05:59 Intake Total 800 800 Output Total 10 Balance 800 790 Physical Exam - Physical Exam General Appearance: alert Respiratory: normal breath sounds, No rhonchi, No wheezing Cardiac/Chest: regular rate, rhythm, No edema, No friction rub Abdomen: normal bowel sounds, non-tender, soft Extremities: No pedal edema Neuro/Psych: alert, normal mood/affect, oriented x 3 ICD10 Worksheet Patient Problems: Problems Problem Status Onset End stage renal disease Acute Hyperkalemia Acute Abdominal pain Acute Acute renal failure Acute Acute upper GI bleed Acute Anemia Acute Anemia associated with acute blood loss Acute Anemia, chronic disease Acute Chronic renal failure Acute Diarrhea Acute ESRD (end stage renal disease) Acute End stage renal disease Acute End stage renal disease Acute Hyperkalemia Acute Hyperkalemia Acute Hyperkalemia Acute Hyperkalemia Acute Hyperkalemia Acute Hyperkalemia Acute Hyperkalemia Acute Hyperkalemia Acute Hyperkalemia Acute Hyperkalemia, diminished renal excretion Acute Hypertension Acute Hypocalcemia Acute Kidney failure Acute Kidney failure Acute Kidney failure Acute Metabolic acidosis Acute Renal failure Acute Shingles (herpes zoster) polyneuropathy Acute Uremia Acute Uremia Acute
--- NOTE | 2017-04-25 09:03 | SOAPPROG ---
JACQUELINE Progress Note Assessment/Plan: Assessment: 67-YEAR-OLD MALE KNOWN TO ME NEW SHOWS A PERIODICALLY FOR DIALYSIS VIA A PALINDROMIC CATHETER HE IS IN NEED OF AN AV FISTULA BUT HAS REFUSED IN THE PAST AND IS QUITE HESITANT AT THIS POINT WELL CURRENTLY HAS IVS IN HIS LEFT ARM WHICH COULD INTERFERE WITH OUR AV FISTULA ACCESS Plan: AV FISTULA TOMORROW IF HE IS WILLING 04/23/17 18:06 04/24/17 19:43 PT WILLING TO PROCEED WITH AVF TODAY/ RISKS AND OPTIONS FULLY DISCUSSED/ US SHOWS VERY SMALL VENOUS OPTIONS PLAN BRACHIO-BASILIC AVF ON LEFT 04/25/17 09:02 WOUND OK/ HAND OK/ GOOD THRILL AND BRUIT/ SUTURES OUT 12-14 DAYS Objective: Vital Signs Temp Pulse Resp BP Pulse Ox 36.8 C 87 16 126/72 H 97 04/25/17 04:00 04/25/17 04:00 04/25/17 04:00 04/25/17 04:00 04/25/17 04:00 Laboratory Results 04/24/17 04:00 04/25/17 04:03 04/24/17 04/25/17 04/26/17 05:59 05:59 05:59 Intake Total 800 800 Output Total 10 Balance 800 790 ICD10 Worksheet Patient Problems: Problems Problem Status Onset End stage renal disease Acute Hyperkalemia Acute Abdominal pain Acute Acute renal failure Acute Acute upper GI bleed Acute Anemia Acute Anemia associated with acute blood loss Acute Anemia, chronic disease Acute Chronic renal failure Acute Diarrhea Acute ESRD (end stage renal disease) Acute End stage renal disease Acute End stage renal disease Acute Hyperkalemia Acute Hyperkalemia Acute Hyperkalemia Acute Hyperkalemia Acute Hyperkalemia Acute Hyperkalemia Acute Hyperkalemia Acute Hyperkalemia Acute Hyperkalemia Acute Hyperkalemia, diminished renal excretion Acute Hypertension Acute Hypocalcemia Acute Kidney failure Acute Kidney failure Acute Kidney failure Acute Metabolic acidosis Acute Renal failure Acute Shingles (herpes zoster) polyneuropathy Acute Uremia Acute Uremia Acute
[2017-04-25] MEDS: CALCIUM CARBONATE 500 MG CHEWABLE TAB PO SCH ×2 (12:04→13:34)
[2017-04-25] MEDS ORDERED: HEPARIN 50,000 UNIT/10 ML VIAL ONE (12:44)
[2017-04-25 12:46] VITALS: BP 134/80; PULSE 80; O2SAT 94
[2017-04-25] MEDS: PANTOPRAZOLE SODIUM 40 MG TAB PO SCH (13:34)
[2017-04-25] MEDS: ATORVASTATIN CALCIUM 40 MG TAB PO SCH (13:34)
[2017-04-25] MEDS: NEPHROVITE FOLIC ACID/VIT B&C 1 TAB PO SCH (13:35)
[2017-04-25] MEDS: SODIUM BICARBONATE 650 MG TAB PO SCH (13:35)
--- NOTE | 2017-04-25 14:58 | ASDISCHSUM ---
Discharge Information Plan Status:Home with No Needs Medically Cleared to Leave: Discharge Date: CM D/C Disposition:Home, Routine, Self-Care ADT D/C Disposition:Home, Routine, Self-Care Projected Discharge Date: Transportation at D/C: Discharge Delay Reason: Follow-Up Date: Discharge Slot: Final Diagnosis: Placement Information Patient Contact Information Contact Name:OTFINOSA Relationship:Geoffrey Address: Work Phone: City: [facility] Phone: State/Campus [place] Code: Email: Financial Information Financial Class:Self-Pay Primary Plan Desc:WE CARE Primary Plan Number:99 Secondary Plan Desc: Secondary Plan Number: Assessment Information [facility] CM Progress Note CM Note CM Note Notes: Patient presented to ED requesting dialysis. I tried to remind him about the new plan in place for him to get dialysis as an outpatient at [facility] (see Case Management note 04/17) but patient seemed unaware of this plan. When I spoke with [facility], they confirmed that he has a chair time there at 3:40 MWF but that they had not been able to contact him. When I ask patient his phone number, he gives me the number that is listed in his demographics, although [facility] had been attempting to reach him this way. I spoke with Annabel Monique data manager of CM dept who said that we should admit patient for dialysis and then throroughly explain the new procedure to him. I informed Simón manager care management. CM will follow. Date Signed: 04/22/2017 04:03 PM Electronically Signed By:Gin Montero RN [facility] CM Progress Note CM Note CM Note Notes: I met with patient with daytime caregiver Elaine to clarify the new plan that [facility] has faciliated for his dialysis treatments. Patient is to now receive dialysis at [facility] in [place], where he has a 3:40PM chair time (needs to be there by 3:15) MWF. Per Evelia Nugent, [facility] had not been able to contact patient despite multiple attempts. Patient states that his cell phone has not been turned on and that his son has been in [place] working. We discussed the importance of having a working phone, and if that is not possible, the importance of patient contacting [facility] if he is unable to make an appointment. We also discussed the importance of prioritizing the MWF schedule at [facility] since it is ultimately better for the patient's health. He offered some initial resistance due to the inconvenience around his work schedule, but he ultimately expressed understanding. I offered to draft a letter to his employer, but he thinks he will be able to work things out. Per MD notes today, patient may need a blood transfusion, as well as a fistula placement. It is likely he will be dialyzed here tomorrow, rather than at [facility]. I spoke w Dr Negro who says it will be fine to call [facility] tomorrow AM (they are closed today) and let them know patient's status. I also explained this to patient, emphasizing that he will likely begin his dialysis treatment at [facility] on Thursday 04/26 and he should call his employer as soon as possible to inform him. Again, patient expressed understanding. CM will follow and ensure that patient has all of [facility]'s contact information and appointment times in writing before he leaves the hospital. Date Signed: 04/23/2017 01:15 PM Electronically Signed By:Gin Montero RN Intervention Information
--- NOTE | 2017-04-25 15:01 | ASMTCMCOM ---
CM Note CM Note Notes: Pt will dc home today. He will f/up at [facility] tomorrow for dialysis. Met w/pt w/[employer] material inspector and RN. Pt seems to have good understanding of plan with [facility], has written instructions and is in agreement w.dc poc. He said he take bus and has eco pass so will be able to get himself to dialysis. Pt ok with dc'ing home independantly, as he is not sure when son will return from [place]. D/W Dr Russell. Date Signed: 04/25/2017 03:00 PM Electronically Signed By:Kylee Steel, RN
--- NOTE | 2017-04-25 20:08 | GDS ---
[f rep st] DISCHARGE SUMMARY DISCHARGE DIAGNOSES: 1. End-stage renal disease, previously receiving emergent dialysis. 2. Severe life-threatening hyperkalemia. 3. Symptomatic uremia. 4. Anemia of renal disease. 5. History of gastrointestinal bleed. 6. Coronary artery disease. 7. Volume overload. 8. Dermatitis, right eg. PROCEDURES: Arteriovenous fistula placement. HISTORY OF PRESENT ILLNESS: A 67-year-old male with history of end- stage renal disease on dialysis with no regular access to HD, presenting with diarrhea, nonbloody a day prior to admission. This is a symptom when needing dialysis. He has had lower extremity edema in the right lower extremity wound. HOSPITAL COURSE BY PROBLEM: 1. Severe hyperkalemia: Secondary to end-stage renal disease. Potassium 6.5. No evidence of peaked T-waves. He received dialysis x2 here. 2. End-stage renal disease: This is chronic. He is to start outpatient therapy at [facility] Saturday, Saturday, Saturday. An AV fistula was placed yesterday. 3. Anemia of chronic kidney disease: Hemoglobin is less than 7. He responded to 1 unit of blood. 4. Symptomatic uremia: Resolved with the hemodialysis. 5. Right lower extremity wound. Care provided by [facility]. 6. Coronary artery disease, not on aspirin with history of GI bleed. 7. History of GI bleed. No evidence here. 8. Hypertension. Resume home medications. Volume overload, likely contributing. DISPOSITION: Patient is stable for discharge. FOLLOWUP: 1. With [facility] in [place] for outpatient dialysis Saturday, Saturday, Saturday number. 2. Dr. Betancur with surgery after AV fistula placement. MEDICATIONS: No new medications this is indication. PHYSICAL EXAM: VITAL SIGNS: Today, temperature 36.8, blood pressure 134/80, heart rate 80s, respiration 16, 94% on room air. GENERAL: Less fatigued today and appears much brighter. HEENT: PERRLA. EOMI. Oropharynx clear. CV: Regular rate and rhythm. No murmurs, gallops, rubs. Lower extremity edema minimal. LUNGS: Diminished breath sounds at bases. : No suprapubic tenderness. MUSCULOSKELETAL: 5/5 upper lower extremity strength. Right leg wound dressed. No evidence of cellulitis. NEURO: 2 through 12 intact. PSYCH : Alert and oriented x3. /[id number]/MODL MTDD
--- NOTE | 2017-04-26 14:02 | GOP ---
[f rep st] OPERATIVE REPORT DATE OF OPERATION: 04/24/2017 SURGEON: Pb Betancur MD PREOPERATIVE DIAGNOSIS: Chronic renal failure. POSTOPERATIVE DIAGNOSIS: Chronic renal failure. PROCEDURE PERFORMED: 1. Left arm ultrasound vein mapping. 2. Left brachiobasilic arteriovenous fistula. FINDINGS: The patient was found to have a thrombosed cephalic vein in the forearm as well as at the antecubital space. He had a patent open basilic vein above the antecubital space. DESCRIPTION OF PROCEDURE: The patient was taken to the operating room where he received satisfactory general endotracheal anesthesia. He was placed in a supine position with the left arm out extended on an arm board, prepped and draped in the usual sterile fashion. Using ultrasound, the veins of the left arm were mapped. Basilic vein was selected. A curvilinear incision was made in the antecubita l space. Dissection extended down, the basilic vein was identified. It was dissected free and encir cled with a vessel loop. The segment of the basilic vein extending over across the antecubital fossa appeared to be fibrotic and not patent. The cephalic vein was also dissected free in this area and a ppeared to be thrombosed as well. A segment of the basilic vein was divided and it was ligated proxi jose with a 3-0 silk tie. The aponeurosis of the biceps tendon was divided exposing the brachial ar antoine which was dissected free for 2 cm and controlled with vessel loops above and below. Basilic vei n was mobilized from its bed for a few centimeters. It was then able to be mobilized over to the bra chial artery. The patient was systemically heparinized. An end-to-side anastomosis was made to the basilic vein, to the brachial artery creating an 8 mm anastomosis. Flow was first established to the AV fistula and then back down to the hand. The suture line was created with a running 6-0 Prolene s uture and appeared to be hemostatic. Heparin was reversed with protamine. The wound was infiltrated with 0.5% Marcaine and sprayed with some topical thrombin. Basilic vein was quite superficial; it w as not felt that it needed to be transposed at this time when the vein is still small. The wound was closed with 3-0 Vicryl for the subcu and a 4-0 Monocryl subcuticular stitch for the skin. All layer s infiltrated with 0.5% Marcaine. He tolerated the procedure well, taken to the recovery room in goo d condition. There were no complications. /[id number]/MODL
== END 2017-04-25 18:15 | disposition home or self-care (01) | DRG 628 ==
LOC: F2W 20:45
PROVIDERS: ADMIT Internal Medicine; ATTEND Internal Medicine
PROC: 5A1D70Z Performance of Urinary Filtration, Intermittent, Less than 6 Hours Per Day (ICD-10-PCS; 2017-04-23)
PROC: 30233N1 Transfusion of Nonautologous Red Blood Cells into Peripheral Vein, Percutaneous Approach (ICD-10-PCS; 2017-04-23)
PROC: 03180ZD Bypass Left Brachial Artery to Upper Arm Vein, Open Approach (ICD-10-PCS; principal; 2017-04-24 16:15)
DX: E87.5 Hyperkalemia (principal); I12.0 Hypertensive chronic kidney disease with stage 5 chronic kidney disease or end stage renal disease; N18.6 End stage renal disease; I83.218 Varicose veins of right lower extremity with both ulcer of other part of lower extremity and inflammation; D63.1 Anemia in chronic kidney disease; M10.9 Gout, unspecified; I25.10 Atherosclerotic heart disease of native coronary artery without angina pectoris; Z95.5 Presence of coronary angioplasty implant and graft; Z87.891 Personal history of nicotine dependence
CPT/HCPCS: J0610; J0690; J1644; J1815; J2250; J2370; J2440; J2704; J2720; J2765; J3010; P9016

== ENCOUNTER 2017-06-17 19:04 | Inpatient (IN) | payer MEDICAID, OTHER ==
--- NOTE | 2017-06-17 19:00 | EDPHY ---
H & P Constitutional: Initial Vital Signs Temperature (C) 36.8 C 06/17/17 19:17 Heart Rate 101 H 06/17/17 19:17 Respiratory Rate 18 06/17/17 19:17 Blood Pressure 190/86 H 06/17/17 19:17 O2 Sat (%) 97 06/17/17 19:17 O2 Delivery Mode Room Air Allergies/Adverse Reactions: No Known Allergies Allergy (Verified 04/22/17 15:04) Home Medications: Medication Instructions Recorded Folic Acid/Vit B Com W/C 1 each PO DAILY 01/07/17 [Nephro-Peyton Rx] Calcium Carbonate [Tums 500MG (*)] 1,500 mg PO TIDMEAL 03/11/17 Atorvastatin Calcium [Lipitor 40 80 mg PO DAILY #90 tab 04/03/17 mg (*)] Cholecalciferol Vit D3 [Vitamin D3 50,000 unit PO TU #12 capsule 04/03/17 (*)] Nitroglycerin [Nitrostat 0.4 mg 0.4 mg SL AD PRN #20 btl 04/03/17 (*)] Pantoprazole Sodium [Protonix 40mg 40 mg PO DAILY #30 tab 04/03/17 (*)] Sodium Bicarbonate [Na Bicarb] 1,300 mg PO DAILY #180 tab 04/03/17 amLODIPine BESYLATE [Norvasc 10 mg 10 mg PO DAILY #90 tab 04/03/17 (*)] hydrALAZINE [Apresoline 50 mg (*)] 50 mg PO TID #180 tab 04/03/17 Medical Decision Making ED Course/Re-evaluation: CHIEF COMPLAINT: Fever, weakness, malaise HISTORY OF PRESENT ILLNESS: This is a 67 y/o male with a history of end-stage renal failure requiring dialysis arriving via EMS from dialysis center complaining of fever and weakness onset today after dialysis. 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 He felt general malaise this morning around 04:00, about 15 hours ago, but didn't feel weak until after dialysis. He did complete the entire dialysis session. He denies cough, dyspnea, chest pain, abdominal pain, or other complaints. REVIEW OF SYSTEMS: A 10 point review of systems was performed and is negative with the exception of the elements mentioned in the history of present illness. PHYSICAL EXAM: HR, BP, O2 Sat, RR. Temp noted General Appearance: Alert, well hydrated, appropriate, and non-toxic appearing. Head: Atraumatic without scalp tenderness or obvious injury Eyes: Pupils equal, round, reactive to light and accommodation, EOMI, no trauma , no injection. Nose: Atraumatic, no rhinorrhea, clear. Throat: Mucus membranes dry. Neck: Supple, nontender, no lymphadenopathy. Respiratory: No retractions, no distress, no wheezes, and no accessory muscle use. Lungs are clear to auscultation bilaterally. Cardiovascular: Regular rate and rhythm, no murmurs, rubs, or gallops. Good capillary refill all extremities. Left upper arm fistula. Gastrointestinal: Abdomen is soft, nontender, non-distended, no masses, no rebound, no guarding, no peritoneal signs. Musculoskeletal: Normal active ROM of all extremities, atraumatic. Neurological: Alert, appropriate, and interactive. The patient has non-focal cranial nerves, motor, sensory, and cerebellar exam. Skin: No rashes, good turgor, no nodules on palpation. No erythema or signs of infection around dialysis catheter. Past medical history: End-stage renal failure, CAD, GI bleed, GERD, anemia, esophagitis, hypertension, chronic kidney disease, upper GI bleed, duodenal stricture Past surgical history: Port, AV shunt Family history: noncontributory Social history: Former smoker. Employed. [employer] at [employer]. DIFFERENTIAL DIAGNOSIS: The differential diagnosis for the patient's fever included but was not limited to pneumonia, urinary tract infection, viral syndrome, meningitis, and sepsis. MEDICAL DECISION MAKING: This is a 67 y/o male with end-stage renal failure who presents from dialysis with a 15-hour history of malaise and weakness onset after dialysis today. His exam is at baseline for him. His presentation is consistent with dehydration and gastroenteritis in the setting of end-stage renal disease. Dr. Chin, high school computer science teacher, approved use of port today in the ED. We will draw cultures from this as well and perform sepsis evaluation and GI pathogen panel. 1L IV NS and 4mg IV Zofran administered. Normal lactate. Spoke with hospitalist service. Dr. Scott accepts admission. - Data Points Laboratory Results: Laboratory Results 06/17/17 19:30 06/17/17 06/17/17 06/17/17 Unknown 19:30 19:30 WBC RBC Hgb Hct MCV MCH MCHC RDW Plt Count MPV Neut % (Auto) Lymph % (Auto) [place] % (Auto) Eos % (Auto) Baso % (Auto) Nucleat RBC Rel Count Absolute Neuts (auto) Absolute Lymphs (auto) Absolute Monos (auto) Absolute Eos (auto) Absolute Basos (auto) Absolute Nucleated RBC Immature Gran % Immature Gran # PT 14.2 SEC SEC (12.0-15.0) INR 1.08 (0.83-1.16) APTT 82.7 SEC H SEC (23.0-38.0) VBG Lactic Acid 1.7 mmol/L mmol/L (0.7-2.1) Sodium Pending Potassium Pending Chloride Pending Carbon Dioxide Pending Anion Gap Pending BUN Pending Creatinine Pending Estimated GFR Pending Glucose Pending Calcium Pending Total Bilirubin Pending 06/17/17 19:30 WBC 6.54 10^3/uL 10^3/uL (3.80-9.50) RBC 3.42 10^6/uL L 10^6/uL (4.40-6.38) Hgb 10.9 g/dL L g/dL (13.7-17.5) Hct 32.9 % L % (40.0-51.0) MCV 96.2 fL fL (81.5-99.8) MCH 31.9 pg pg (27.9-34.1) MCHC 33.1 g/dL g/dL (32.4-36.7) RDW 17.2 % H % (11.5-15.2) Plt Count 122 10^3/uL L 10^3/uL (150-400) MPV 11.2 fL fL (8.7-11.7) Neut % (Auto) 91.2 % H % (39.3-74.2) Lymph % (Auto) 3.2 % L % (15.0-45.0) [place] % (Auto) 2.3 % L % (4.5-13.0) Eos % (Auto) 2.0 % % (0.6-7.6) Baso % (Auto) 0.8 % % (0.3-1.7) Nucleat RBC Rel Count 0.0 % % (0.0-0.2) Absolute Neuts (auto) 5.97 10^3/uL 10^3/uL (1.70-6.50) Absolute Lymphs (auto) 0.21 10^3/uL L 10^3/uL (1.00-3.00) Absolute Monos (auto) 0.15 10^3/uL L 10^3/uL (0.30-0.80) Absolute Eos (auto) 0.13 10^3/uL 10^3/uL (0.03-0.40) Absolute Basos (auto) 0.05 10^3/uL 10^3/uL (0.02-0.10) Absolute Nucleated RBC 0.00 10^3/uL 10^3/uL (0-0.01) Immature Gran % 0.5 % % (0.0-1.1) Immature Gran # 0.03 10^3/uL 10^3/uL (0.00-0.10) PT INR APTT VBG Lactic Acid Sodium Potassium Chloride Carbon Dioxide Anion Gap BUN Creatinine Estimated GFR Glucose Calcium Total Bilirubin Medications Given: Discontinued Medications Sodium Chloride (Ns) 1,000 mls @ 0 mls/hr IV EDNOW ONE; Wide Open PRN Reason: Protocol Stop: 06/17/17 19:45 Last Admin: 06/17/17 19:56 Dose: 500 mls Ondansetron HCl (Zofran) 4 mg IVP EDNOW ONE Stop: 06/17/17 19:45 Last Admin: 06/17/17 19:57 Dose: 4 mg Departure - Departure Disposition: [facility] Inpatient Acute Clinical Impression: Gastroenteritis, Dehydration, End stage renal disease Condition: Fair Referrals: Patient,NotPresent [Unknown] - As per Instructions Report Scribed for: Geremias Enamorado Report Scribed by: Landy Fontaine Date of Report: 06/17/17 Time of Report: 19:19
--- NOTE | 2017-06-17 19:24 | PDCONSULT ---
Industrial Health Engineer Note: CC: Fever, rigors HPI: The patient is a 67 y/o M with a PMH of ESRD on HD MWF at [facility] who was BIBA for fever to 100F and rigors on dialysis today. The patient reports not feeling well since 4am this morning and having N/V/D for several hours. He presented at 1kg below his dry weight. He admits to eating a fish and chicken sandwich and soup last night after work b/c he was hungry. No sick contacts. No bleeding. Denies other ROS and has felt well up until today. - Allergies/Home Medication List Allergies/Adverse Reactions: No Known Allergies Allergy (Verified 04/01/17 14:09) Home Medications: See list - Past Medical History Coronary artery disease, ESRD, GI bleed, GERD (Anemia of chronic disease, H/O UGIB x2 (first on Plavix +ASA, then on ASA alone), esophagitis), hypertension Anemia of chronic kidney disease; upper GI bleed in the setting of anti- platelet medications, 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; esophagitis - Surgical History R IJ tunneled catheter, L AVF placed in April - Family History Mother with CVA and HTN - Social History Smoking Status: Never smoked, continues to work on non-HD days Review of Systems Review of Systems: Negative except as stated above. Objective: Physical Exam: Gen: A+Ox3, mild distress HEENT: Dry MM, EOMI, no trauma Neck: supple, no thyromegaly CV: RRR, no murmurs or rubs, R TDC in place with some erythema RESP: lungs CTA, no crackles ABD: Soft, NT, ND EXT: No edema, L AVF thrill and bruit present NEURO: Non-focal, cooperative, normal gait SKIN: No rashes, no lesions, warm and dry Labs: Pending Imaging: Pending A/P: The patient is a 67 y/o M with known h/o ESRD on HD who presents with vomiting, fever, and tunneled catheter in chest with concern for sepsis. ESRD on HD MWF [facility] -completed 4h run today -under dry weight, no UF -will do dialysis as needed inpatient Access -R TDC, recently appeared slightly infected and treated with 1 week vancomycin however, may have been a skin reaction to bacitracin and not removed -awaiting maturation of L AVF, seen by Dr. Betancur -may need to remove catheter and replace per IR pending clinical course Fever, vomiting, diarrhea -blood cultures, r/o C.diff given recent hospitalization -empiric abx -zofran prn -may tolerate some gentle hydration Hypertension -would hold antihypertensives for now BMD -daily labs and phos -renal diet -resume other outpatient meds if tolerating Anemia -receiving iron and EPO as outpatient weekly Consult appreciated, we will continue to follow.
[2017-06-17] MEDS ORDERED: NS 1,000 ML IV ONE (19:44)
[2017-06-17] MEDS ORDERED: ONDANSETRON 4 MG/2 ML VIAL IVP ONE (19:44)
[2017-06-17 19:45] LABS: % IMMATURE GRANULYOCYTES 0.5 % (0.0-1.1); ABSOLUTE IMMATURE GRANULOCYTES 0.03 10^3/uL (0.00-0.10); ADD DIFF? NO; ADD MORPH? NO; ADD SCAN? NO; ATYPICAL LYMPHOCYTE FLAG 0 (0-99); FRAGMENT RBC FLAG 0 (0-99); HEMATOCRIT 32.9 % (40.0-51.0); HEMOGLOBIN 10.9 g/dL (13.7-17.5); LEFT SHIFT FLG 0 (0-99); LIPEMIA HEMOLYSIS FLAG 80 (0-99); MEAN CELL HEMOGLOBIN 31.9 pg (27.9-34.1); MEAN CELL HEMOGLOBIN CONCENTR. 33.1 g/dL (32.4-36.7); MEAN CELL VOLUME 96.2 fL (81.5-99.8); MEAN PLATELET VOLUME 11.2 fL (8.7-11.7); PLATELET CLUMPS FLAG 0 (0-99); PLATELET COUNT 122 10^3/uL (150-400); RED BLOOD CELL COUNT 3.42 10^6/uL (4.40-6.38); RED CELL DISTRIBUTION WIDTH 17.2 % (11.5-15.2)
[2017-06-17 19:57] LABS: INR 1.08 (0.83-1.16); PROTIME(PATIENT) 14.2 SEC (12.0-15.0)
[2017-06-17 19:59] LABS: APTT 82.7 SEC (23.0-38.0)
[2017-06-17 20:20] LABS: ANION GAP 15 mEq/L (8-16); BILIRUBIN,TOTAL 0.8 mg/dL (0.1-1.4); CARBON DIOXIDE 25 mEq/l (22-31); CHLORIDE 96 mEq/L (97-110); CREATININE 4.3 mg/dL (0.7-1.3); GLOMERULAR FILTRATION RATE 14; GLUCOSE 110 mg/dL (70-100); POTASSIUM 3.9 mEq/L (3.5-5.2); SODIUM 136 mEq/L (134-144)
[2017-06-17] MEDS ORDERED: PROMETHAZINE HCL 25 MG/ML INJ IVP PRN (21:44)
[2017-06-17] MEDS ORDERED: ONDANSETRON DISINTEGRATING 4 MG TAB PO PRN (21:44)
[2017-06-17] MEDS ORDERED: PROMETHAZINE HCL 25 MG TAB PO PRN (21:44)
[2017-06-17] MEDS ORDERED: ONDANSETRON 4 MG/2 ML VIAL IVP PRN (21:44)
[2017-06-17] MEDS ORDERED: ACETAMINOPHEN 325 MG TAB PO PRN (21:44)
[2017-06-17] MEDS ORDERED: HEPARIN 50,000 UNIT/10 ML VIAL ONE (22:20)
[2017-06-17] MEDS ORDERED: HEPARIN 50,000 UNIT/10 ML VIAL IVP SCH (22:30)
--- NOTE | 2017-06-17 22:40 | PDGENHP ---
History and Physical - Chief Complaint Acute rigors - History of Present Illness Primary care provider: [facility] Primary hemodialysis center: [facility] HPI: 67-year-old male presenting with acute rigors characterized as uncontrollable chills and a cold sensation with associated nausea, watery vomiting and diarrhea. Patient reports onset of symptoms at 4:00 a.m. on the date of presentation and duration was until 11:00 a.m.. The patient presents to his dialysis center 1 kg under his dry weight. The patient reports he began experiencing some associated fatigued on the evening prior to presentation, and he ate a fish sandwich. The patient otherwise denies abdominal pain, endorses ongoing lower extremity edema and lower extremity discomfort, and denies any cough or shortness of breath. Prior to the onset of the symptoms he had otherwise been feeling well on a been taking his home medications. History Information - Allergies/Home Medication List Allergies/Adverse Reactions: No Known Allergies Allergy (Verified 04/22/17 15:04) Home Medications: Folic Acid/Vit B Com W/C [Nephro-Peyton Rx] 1 tab PO DAILY 01/07/17 [Last Taken 09:00] Calcium Carbonate [Tums 500MG (*)] 500 mg PO TIDMEAL 03/11/17 [Last Taken 09:00] I have personally reviewed and updated: family history, medical history, social history, surgical history - Past Medical History coronary artery disease (Known coronary disease but has not undergone interventional cardiac catheterization), ESRD (Currently receiving treatment at [facility], has a fistula which is maturing, receiving dialysis through a right chest catheter), GI bleed, GERD (Anemia of chronic disease, H/O UGIB x2 (first on Plavix +ASA, then on ASA alone), esophagitis), hypertension Additional medical history: Anemia of chronic kidney disease; upper GI bleed in the setting of anti-platelet medications, has occurred while on single and double agent therapy; 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; esophagitis; right lower extremity wound - Surgical History Additional surgical history: R IJ tunneled catheter. Av fistula - Family History Additional family history: Mother with CVA and HTN - Social History Smoking Status: Former smoker Alcohol Use: None Drug Use: None Additional social history: Continues to work on non-HD days Review of Systems Review of Systems: ROS: 10pt was reviewed & negative except for what was stated in HPI & below Constitutional: Reports: chills, fever Gastrointestinal: Reports: vomitting, diarrhea, nausea Physical Exam Physical Exam: Temp Pulse Resp BP Pulse Ox 37.2 C 93 16 150/76 H 92 06/17/17 21:01 06/17/17 21:01 06/17/17 21:01 06/17/17 21:01 06/17/17 21:01 Constitutional: no apparent distress, appears nourished, not in pain Eyes: PERRL, anicteric sclera, EOMI Ears, Nose, Mouth, Throat: moist mucous membranes, hearing normal, ears appear normal, no oral mucosal ulcers Cardiovascular: regular rate and rhythym, systolic murmur (2/6 at the sternum and apex), edema (1+ right lower extremity), No tachycardia Respiratory: no respiratory distress, no rales or rhonchi, clear to auscultation Gastrointestinal: normoactive bowel sounds, soft, non-tender abdomen, no palpable masses, No hepatosplenomegally, No distension Skin: other (No erythema, induration, tenderness over right cath site, skin is diffusely warm) Neurologic: AAOx3, sensation intact bilaterally, No weakness Psychiatric: interacting appropriately, not anxious, not encephalopathic, thought process linear Lab Data & Imaging Review 06/17/17 19:30 06/17/17 19:30 WBC 6.54 10^3/uL (3.80-9.50) 06/17/17 19:30 RBC 3.42 10^6/uL (4.40-6.38) L 06/17/17 19:30 Hgb 10.9 g/dL (13.7-17.5) L 06/17/17 19:30 Hct 32.9 % (40.0-51.0) L 06/17/17 19:30 MCV 96.2 fL (81.5-99.8) 06/17/17 19:30 MCH 31.9 pg (27.9-34.1) 06/17/17 19:30 MCHC 33.1 g/dL (32.4-36.7) 06/17/17 19:30 RDW 17.2 % (11.5-15.2) H 06/17/17 19:30 Plt Count 122 10^3/uL (150-400) L 06/17/17 19:30 MPV 11.2 fL (8.7-11.7) 06/17/17 19:30 Neut % (Auto) 91.2 % (39.3-74.2) H 06/17/17 19:30 Lymph % (Auto) 3.2 % (15.0-45.0) L 06/17/17 19:30 [place] % (Auto) 2.3 % (4.5-13.0) L 06/17/17 19:30 Eos % (Auto) 2.0 % (0.6-7.6) 06/17/17 19:30 Baso % (Auto) 0.8 % (0.3-1.7) 06/17/17 19:30 Nucleat RBC Rel Count 0.0 % (0.0-0.2) 06/17/17 19:30 Absolute Neuts (auto) 5.97 10^3/uL (1.70-6.50) 06/17/17 19:30 Absolute Lymphs (auto) 0.21 10^3/uL (1.00-3.00) L 06/17/17 19:30 Absolute Monos (auto) 0.15 10^3/uL (0.30-0.80) L 06/17/17 19:30 Absolute Eos (auto) 0.13 10^3/uL (0.03-0.40) 06/17/17 19:30 Absolute Basos (auto) 0.05 10^3/uL (0.02-0.10) 06/17/17 19:30 Absolute Nucleated RBC 0.00 10^3/uL (0-0.01) 06/17/17 19:30 Immature Gran % 0.5 % (0.0-1.1) 06/17/17 19:30 Immature Gran # 0.03 10^3/uL (0.00-0.10) 06/17/17 19:30 PT 14.2 SEC (12.0-15.0) 06/17/17 19:30 INR 1.08 (0.83-1.16) 06/17/17 19:30 APTT 82.7 SEC (23.0-38.0) H 06/17/17 19:30 VBG Lactic Acid 1.7 mmol/L (0.7-2.1) 06/17/17 Unknown Sodium 136 mEq/L (134-144) 06/17/17 19:30 Potassium 3.9 mEq/L (3.5-5.2) 06/17/17 19:30 Chloride 96 mEq/L (97-110) L 06/17/17 19:30 Carbon Dioxide 25 mEq/l (22-31) 06/17/17 19:30 Anion Gap 15 mEq/L (8-16) 06/17/17 19:30 BUN 22 mg/dL (7-23) 06/17/17 19:30 Creatinine 4.3 mg/dL (0.7-1.3) H 06/17/17 19:30 Estimated GFR 14 06/17/17 19:30 Glucose 110 mg/dL (70-100) H 06/17/17 19:30 Calcium 9.0 mg/dL (8.5-10.4) 06/17/17 19:30 Total Bilirubin 0.8 mg/dL (0.1-1.4) 06/17/17 19:30 Visualized and Interpreted EKG results: Yes EKG Interpretation: Positive for: other (Normal sinus rhythm without any ST segment abnormalities) Assessment & Plan Assessment: 67-year-old male presents with acute nausea vomiting diarrhea and hypovolemia in the setting of end-stage renal disease Plan: 1. Nausea vomiting diarrhea. Acute, new problem this provider, further workup indicated. Suspect this is secondary to a viral gastroenteritis, versus bacterial precipitant, given the temporal association with questionable food intake on the evening prior -get GI pathogen PCR -will give a limited amount of fluid tonight since he was 1 kg under his dry weight on presentation, 50 cc an hour of D5 half-normal saline -antiemetics as needed -blood culture sent -hold antibiotics 2. Hypertension. Chronic, continue amlodipine tomorrow a.m. if blood pressure greater than 160, hold hydralazine 3. End-stage renal disease. Chronic, will require ongoing Saturday dialysis, provided patient remains hospitalized through Saturday -reviewed outside records including 04/26/[address] Yael Russell, she reports the patient had an AV fistula placed and he will be receiving outpatient dialysis at [facility] on Saturday days, AV fistula continues to mature -leave dialysis catheter in place, pending no growth on blood cultures 4. Anemia of chronic kidney disease. Stable, hemoglobin greater than 10, hold on any further EPO at this time 5. Coronary artery disease. Chronic, continue home medications Diet. Renal Prophylaxis. High risk patient heparin subcu Code. Full Disposition. Anticipated discharge 06/18, pending stabilization of symptoms as outlined above. I have discussed patient's presentation with Dr. Chin, she and I both agree that the patient requires observation to ensure that his symptoms have stabilized tonight.
[2017-06-17] MEDS ORDERED: D5W 1/2 NS 1,000 ML IV SCH (23:45)
[2017-06-18] MEDS: HEPARIN 5,000 UNIT/0.5 ML SYR SC SCH ×4 (00:30→20:48)
[2017-06-18 05:52] LABS: ALANINE AMINOTRANSFERASE 28 IU/L (21-72); ALBUMIN 3.5 g/dL (3.5-5.0); ALKALINE PHOSPHATASE 134 IU/L (38-126); ANION GAP 13 mEq/L (8-16); ASPARTATE AMINOTRANSFERASE 30 IU/L (17-59); BILIRUBIN,TOTAL 0.4 mg/dL (0.1-1.4); CALCIUM 7.9 mg/dL (8.5-10.4); CARBON DIOXIDE 25 mEq/l (22-31); CHLORIDE 102 mEq/L (97-110); CREATININE 6.3 mg/dL (0.7-1.3); GLOMERULAR FILTRATION RATE 9; GLUCOSE 101 mg/dL (70-100); MAGNESIUM 1.6 mg/dL (1.6-2.3); POTASSIUM 4.4 mEq/L (3.5-5.2); SODIUM 140 mEq/L (134-144); TOTAL PROTEIN 5.8 g/dL (6.3-8.2)
[2017-06-18 05:56] LABS: % IMMATURE GRANULYOCYTES 0.6 % (0.0-1.1); ABSOLUTE IMMATURE GRANULOCYTES 0.03 10^3/uL (0.00-0.10); ADD DIFF? NO; ADD MORPH? NO; ADD SCAN? NO; ATYPICAL LYMPHOCYTE FLAG 0 (0-99); FRAGMENT RBC FLAG 0 (0-99); HEMATOCRIT 31.2 % (40.0-51.0); HEMOGLOBIN 9.9 g/dL (13.7-17.5); LEFT SHIFT FLG 0 (0-99); LIPEMIA HEMOLYSIS FLAG 80 (0-99); MEAN CELL HEMOGLOBIN 31.6 pg (27.9-34.1); MEAN CELL HEMOGLOBIN CONCENTR. 31.7 g/dL (32.4-36.7); MEAN CELL VOLUME 99.7 fL (81.5-99.8); MEAN PLATELET VOLUME 11.5 fL (8.7-11.7); PLATELET CLUMPS FLAG 20 (0-99); PLATELET COUNT 117 10^3/uL (150-400); RED BLOOD CELL COUNT 3.13 10^6/uL (4.40-6.38); RED CELL DISTRIBUTION WIDTH 17.3 % (11.5-15.2)
[2017-06-18] MEDS: SODIUM BICARBONATE 650 MG TAB PO SCH (08:30)
[2017-06-18] MEDS: ATORVASTATIN CALCIUM 40 MG TAB PO SCH (08:32)
[2017-06-18] MEDS: PANTOPRAZOLE SODIUM 40 MG TAB PO SCH (08:32)
[2017-06-18] MEDS: CALCIUM CARBONATE 500 MG CHEWABLE TAB PO SCH ×3 (08:32→17:34)
[2017-06-18] MEDS: NEPHROVITE FOLIC ACID/VIT B&C 1 TAB PO SCH (08:33)
--- NOTE | 2017-06-18 09:24 | SOAPPROG ---
SOAP Progress Note Assessment/Plan: Assessment:Plan: ESRD-on Hd MWF at [facility] -next Hd tomorrow Access-AVF and tunneled cath -will use catheter for dialysis in hospital GI-toxigenic E coli and Norovirus -isolation -care per hospitalists Dispo-pending 06/18/17 09:22 Subjective: diarrhea starting early yesterday morning Objective: Vital Signs Temp Pulse Resp BP Pulse Ox 37.4 C 80 16 118/63 95 06/18/17 08:33 06/18/17 08:33 06/18/17 08:33 06/18/17 08:30 06/18/17 08:33 Microbiology 06/18/17 04:00 Gastrointestinal Tract Panel (PCR) - Final Stool E.coli Enteropathogenic(Epec) Norovirus Gi/Gii Laboratory Results 06/18/17 03:52 06/18/17 03:52 06/17/17 06/18/17 06/19/17 05:59 05:59 05:59 Intake Total 1200 Balance 1200 PT 14.2 SEC (12.0-15.0) 06/17/17 19:30 INR 1.08 (0.83-1.16) 06/17/17 19:30 Physical Exam - Physical Exam General Appearance: WD/WN, alert, no apparent distress, thin EENT: normal ENT inspection Neck: normal inspection Respiratory: lungs clear, normal breath sounds, No respiratory distress Cardiac/Chest: regular rate, rhythm Abdomen: normal bowel sounds, soft Skin: normal color Extremities: No swelling ICD10 Worksheet Patient Problems: Problems Problem Status Onset Dehydration Acute End stage renal disease Acute Gastroenteritis Acute Abdominal pain Acute Acute renal failure Acute Acute upper GI bleed Acute Anemia Acute Anemia associated with acute blood loss Acute Anemia, chronic disease Acute Chronic renal failure Acute Diarrhea Acute ESRD (end stage renal disease) Acute End stage renal disease Acute End stage renal disease Acute Hyperkalemia Acute Hyperkalemia Acute Hyperkalemia Acute Hyperkalemia Acute Hyperkalemia Acute Hyperkalemia Acute Hyperkalemia Acute Hyperkalemia Acute Hyperkalemia Acute Hyperkalemia Acute Hyperkalemia, diminished renal excretion Acute Hypertension Acute Hypocalcemia Acute Kidney failure Acute Kidney failure Acute Kidney failure Acute Metabolic acidosis Acute Renal failure Acute Shingles (herpes zoster) polyneuropathy Acute Uremia Acute Uremia Acute
[2017-06-18 10:58] LABS: HEPATITIS B SURFACE ANTIBODY NEGATIVE (NEGATIVE)
--- NOTE | 2017-06-18 11:48 | HOSPPROG ---
Hospitalist Progress Note Assessment/Plan: DIAGNOSES: # acute gastroenteritis with both norovirus and enteropathogenic E coli isolated # end-stage renal disease on chronic dialysis # accelerated hypertension at this time with history of hypertension # acute fissuring and serous weeping of the skin at the left ankle, with chronic stasis dermatitis changes in that area, but no acute ulcers or infection at the moment # history of coronary artery disease # history of GI bleed, esophagitis and esophageal strictures # chronic anemia due to renal disease Patient has high risk of complications due to potential for electrolyte abnormalities with his GI fluid losses and dialysis, fluid shifts, severe hypertension and history of coronary disease; will need very careful monitoring of fluid status and electrolytes during this illness, and will need to treat this in the hospital until his GI fluid and electrolyte losses are minimized PLANS: -continue his usual dialysis schedule at this time, monitor closely -monitoring of electrolytes and fluid status, blood pressures -contact isolation -careful monitoring and management of his hypertension; this may be improved by dialysis but will likely need to use further medications -continue cardiac monitoring specialist SUBJECTIVE: Still having diarrhea, no bleeding, no abdominal pain No vomiting so far today appetite poor but eating a little bit No chest pain or shortness of breath OBJECTIVE Vitals reviewed: Some low-grade fever here so far, Some severe hypertension here so far highest systolic 190, otherwise stable Nursing Clerk, my review: Sinus rhythm Exam: alert oriented skin warm dry color ok; dialysis catheter access site looks good; see further discussion of skin below under limbs resps not labored lungs clear BSs heart regular abd soft nondistended nontender, bowel sounds present limbs warm, some edema present, worse in the left ankle and there are some chronic stasis pigmentation changes around the left ankle and some acute fissuring and serous weeping from the skin above the left ankle; no current do ulcers per se and no signs of infection so far; the ankle is appropriately dressed for protection here at this time iv site ok Laboratory data: Potassium and sodium in good range so far Hemoglobin decreased overnight but is within his usual range GI pathogen panel showing both norovirus and entero pathogenic E coli Objective: Vital Signs Temp Pulse Resp BP Pulse Ox 37.4 C 80 16 118/63 95 06/18/17 08:33 06/18/17 08:33 06/18/17 08:33 06/18/17 08:30 06/18/17 08:33 Microbiology 06/18/17 04:00 Gastrointestinal Tract Panel (PCR) - Final Stool E.coli Enteropathogenic(Epec) Norovirus Gi/Gii Laboratory Results 06/18/17 03:52 06/18/17 03:52 06/17/17 06/18/17 06/19/17 06:59 06:59 06:59 Intake Total 1200 Balance 1200 PT 14.2 SEC (12.0-15.0) 06/17/17 19:30 INR 1.08 (0.83-1.16) 06/17/17 19:30 - Time Spent With Patient Time Spent with Patient: greater than 35 minutes Time Spent with Patient: Greater than 35 minutes spent on this patients care, greater than 50% of time spent counseling, educating, and coordinating care regarding the above mentioned plan. ICD10 Worksheet Patient Problems: Problems Problem Status Onset Dehydration Acute End stage renal disease Acute Gastroenteritis Acute Abdominal pain Acute Acute renal failure Acute Acute upper GI bleed Acute Anemia Acute Anemia associated with acute blood loss Acute Anemia, chronic disease Acute Chronic renal failure Acute Diarrhea Acute ESRD (end stage renal disease) Acute End stage renal disease Acute End stage renal disease Acute Hyperkalemia Acute Hyperkalemia Acute Hyperkalemia Acute Hyperkalemia Acute Hyperkalemia Acute Hyperkalemia Acute Hyperkalemia Acute Hyperkalemia Acute Hyperkalemia Acute Hyperkalemia Acute Hyperkalemia, diminished renal excretion Acute Hypertension Acute Hypocalcemia Acute Kidney failure Acute Kidney failure Acute Kidney failure Acute Metabolic acidosis Acute Renal failure Acute Shingles (herpes zoster) polyneuropathy Acute Uremia Acute Uremia Acute
--- NOTE | 2017-06-18 12:30 | ASMTCMCOM ---
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 Pt has no concerns regarding d/c. Pt was evaluated today by [employer] for emergency medicaid application. Case Management d/c poc: Home independent with resumption of dialysis at [facility] Case Management available if needs change. Date Signed: 06/18/2017 12:30 PM Electronically Signed By:Shanelle Zamorano RN
[2017-06-18] MEDS ORDERED: CHOLECALCIFEROL VIT D3 50,000 UNIT CAP PO SCH (21:46)
[2017-06-19 05:37] LABS: ANION GAP 15 mEq/L (8-16); CARBON DIOXIDE 22 mEq/l (22-31); CHLORIDE 102 mEq/L (97-110); GLOMERULAR FILTRATION RATE 6; GLUCOSE 85 mg/dL (70-100); MAGNESIUM 1.7 mg/dL (1.6-2.3); SODIUM 139 mEq/L (134-144)
[2017-06-19 05:53] LABS: CALCIUM 7.3 mg/dL (8.5-10.4)
[2017-06-19 06:02] LABS: CREATININE 9.1 mg/dL (0.7-1.3)
--- NOTE | 2017-06-19 06:20 | PDMN ---
Medical Necessity Medical necessity: Pt meets INPT criteria per MD and [facility] [place] M-170 Gastroenteritis ( LOS >2 MN for ongoing eval/mgmt of acute gastroenteritis with norovirus and enteropathogenic E coli isolated, high risk of complications d/t potential for electrolyte abnormalities with GI fluid losses, ESRD on chronic dialysis, severe htn, chronic anemia; hx CAD, GI bleed per MD progress note).
[2017-06-19] MEDS: HEPARIN 5,000 UNIT/0.5 ML SYR SC SCH ×3 (06:49→21:52)
[2017-06-19] MEDS: ATORVASTATIN CALCIUM 40 MG TAB PO SCH (09:49)
[2017-06-19] MEDS: NEPHROVITE FOLIC ACID/VIT B&C 1 TAB PO SCH (09:49)
[2017-06-19] MEDS: PANTOPRAZOLE SODIUM 40 MG TAB PO SCH (09:49)
[2017-06-19] MEDS: CALCIUM CARBONATE 500 MG CHEWABLE TAB PO SCH ×4 (09:50→17:05)
[2017-06-19] MEDS: SODIUM BICARBONATE 650 MG TAB PO SCH (09:50)
--- NOTE | 2017-06-19 12:53 | SOAPPROG ---
SOAP Progress Note Assessment/Plan: Assessment: 1. ESRD. HD later today per MWF schedule. 2. Diarrhea. +ETEC and norovirus. Might benefit from short course of levaquin for E. Coli. On NS at 50cc/h. D/c once po intake adequate. 3. AVF. Maturing. Should be ready to use in July. Plan: 06/19/17 12:52 06/19/17 12:53 06/19/17 12:53 Subjective: Diarrhea slightly better than at first but still persists (small volume but frequent). No new complaints today. Objective: Vital Signs Temp Pulse Resp BP Pulse Ox 36.6 C 77 16 137/69 H 92 06/19/17 12:00 06/19/17 12:00 06/19/17 12:00 06/19/17 12:00 06/19/17 12:00 Laboratory Results 06/19/17 03:59 06/18/17 06/19/17 06/20/17 05:59 05:59 05:59 Intake Total 150 Balance 150 PT 14.2 SEC (12.0-15.0) 06/17/17 19:30 INR 1.08 (0.83-1.16) 06/17/17 19:30 Thin male, NAD RRR, no m/g/r CTAB Abdom soft, +hyperactive bowel sounds, nt No edema L upper arm avf with good thrill ICD10 Worksheet Patient Problems: Problems Problem Status Onset Acute renal failure Acute Anemia Acute Abdominal pain Acute Hyperkalemia Acute Hypocalcemia Acute Renal failure Acute Hypertension Acute Acute upper GI bleed Acute Anemia associated with acute blood loss Acute End stage renal disease Acute Metabolic acidosis Acute Diarrhea Acute Shingles (herpes zoster) polyneuropathy Acute Kidney failure Acute Hyperkalemia Acute Chronic renal failure Acute Hyperkalemia Acute Kidney failure Acute Hyperkalemia Acute Kidney failure Acute Uremia Acute Hyperkalemia Acute Hyperkalemia Acute Hyperkalemia Acute Hyperkalemia Acute Uremia Acute Hyperkalemia Acute End stage renal disease Acute Hyperkalemia Acute ESRD (end stage renal disease) Acute Anemia, chronic disease Acute End stage renal disease Acute Hyperkalemia, diminished renal excretion Acute Gastroenteritis Acute Dehydration Acute
--- NOTE | 2017-06-19 18:47 | HOSPPROG ---
Hospitalist Progress Note Assessment/Plan: DIAGNOSES: # acute gastroenteritis with both norovirus and enteropathogenic E coli isolated # end-stage renal disease on chronic dialysis # accelerated hypertension improved today after dialysis # acute fissuring and serous weeping of the skin at the left ankle, with chronic stasis dermatitis changes in that area, but no acute ulcers or infection at the moment # history of coronary artery disease # history of GI bleed, esophagitis and esophageal strictures # chronic anemia due to renal disease Patient has high risk of complications due to potential for electrolyte abnormalities with his GI fluid losses and dialysis, fluid shifts, severe hypertension and history of coronary disease; will need very careful monitoring of fluid status and electrolytes during this illness, and will need to treat this in the hospital until his GI fluid and electrolyte losses are minimized PLANS: -continue his usual dialysis schedule at this time, monitor closely -monitoring of electrolytes and fluid status, blood pressures -contact isolationse further medications -continue cardiac monitoring specialist -careful monitoring and management of his hypertension SUBJECTIVE: Still having diarrhea, had had 4 stools this morning by the time I visited him around 9:30. 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: Sinus rhythm Exam: alert oriented skin warm dry color ok; dialysis catheter access site looks good; see further discussion of skin below under limbs resps not labored lungs clear BSs heart regular abd soft nondistended nontender, bowel sounds present limbs warm, some edema present, worse in the left ankle and there are some chronic stasis pigmentation changes around the left ankle and some acute fissuring and serous weeping from the skin above the left ankle; no current do ulcers per se and no signs of infection so far; the ankle is appropriately dressed for protection here at this time iv site ok Laboratory data: Potassium and sodium in good range so far Hemoglobin decreased overnight but is within his usual range GI pathogen panel showing both norovirus and entero pathogenic E coli Objective: Vital Signs Temp Pulse Resp BP Pulse Ox 36.6 C 70 16 146/70 H 92 06/19/17 17:15 06/19/17 17:15 06/19/17 17:15 06/19/17 17:15 06/19/17 17:15 Laboratory Results 06/19/17 03:59 06/18/17 06/19/17 06/20/17 06:59 06:59 06:59 Intake Total 150 1150 Balance 150 1150 PT 14.2 SEC (12.0-15.0) 06/17/17 19:30 INR 1.08 (0.83-1.16) 06/17/17 19:30 ICD10 Worksheet Patient Problems: Problems Problem Status Onset Dehydration Acute End stage renal disease Acute Gastroenteritis Acute Abdominal pain Acute Acute renal failure Acute Acute upper GI bleed Acute Anemia Acute Anemia associated with acute blood loss Acute Anemia, chronic disease Acute Chronic renal failure Acute Diarrhea Acute ESRD (end stage renal disease) Acute End stage renal disease Acute End stage renal disease Acute Hyperkalemia Acute Hyperkalemia Acute Hyperkalemia Acute Hyperkalemia Acute Hyperkalemia Acute Hyperkalemia Acute Hyperkalemia Acute Hyperkalemia Acute Hyperkalemia Acute Hyperkalemia Acute Hyperkalemia, diminished renal excretion Acute Hypertension Acute Hypocalcemia Acute Kidney failure Acute Kidney failure Acute Kidney failure Acute Metabolic acidosis Acute Renal failure Acute Shingles (herpes zoster) polyneuropathy Acute Uremia Acute Uremia Acute
[2017-06-19] MEDS ORDERED: HEPARIN 50,000 UNIT/10 ML VIAL ONE (21:52)
[2017-06-20 05:23] LABS: ANION GAP 12 mEq/L (8-16); CARBON DIOXIDE 25 mEq/l (22-31); CHLORIDE 102 mEq/L (97-110); CREATININE 6.8 mg/dL (0.7-1.3); GLOMERULAR FILTRATION RATE 8; GLUCOSE 95 mg/dL (70-100); MAGNESIUM 1.7 mg/dL (1.6-2.3); POTASSIUM 4.1 mEq/L (3.5-5.2); SODIUM 139 mEq/L (134-144)
[2017-06-20] MEDS: HEPARIN 5,000 UNIT/0.5 ML SYR SC SCH ×3 (06:32→21:24)
[2017-06-20] MEDS: CALCIUM CARBONATE 500 MG CHEWABLE TAB PO SCH ×3 (08:37→17:45)
[2017-06-20] MEDS: SODIUM BICARBONATE 650 MG TAB PO SCH (08:37)
[2017-06-20] MEDS: PANTOPRAZOLE SODIUM 40 MG TAB PO SCH (08:37)
[2017-06-20] MEDS: ATORVASTATIN CALCIUM 40 MG TAB PO SCH (08:37)
[2017-06-20] MEDS: NEPHROVITE FOLIC ACID/VIT B&C 1 TAB PO SCH (09:56)
--- NOTE | 2017-06-20 15:21 | SOAPPROG ---
SOAP Progress Note Assessment/Plan: Assessment: 1. ESRD. HD tomorrow per F schedule. 2. Diarrhea. +ETEC and norovirus. May need some loperamide, still having watery stools. May need to consider changing TDC if fever or +blood cultures. On NS at 50cc/h. D/c once po intake adequate. 3. AVF. Maturing. Should be ready to use in July. 06/20/17 15:18 Subjective: Patient still having watery stools. No vomiting today. Not eating much. Objective: Vital Signs Temp Pulse Resp BP Pulse Ox 36.6 C 69 14 122/65 H 93 06/20/17 11:25 06/20/17 11:25 06/20/17 11:25 06/20/17 11:25 06/20/17 11:25 Laboratory Results 06/20/17 03:30 06/19/17 06/20/17 06/21/17 05:59 05:59 05:59 Intake Total 150 1550 Balance 150 1550 PT 14.2 SEC (12.0-15.0) 06/17/17 19:30 INR 1.08 (0.83-1.16) 06/17/17 19:30 Physical Exam - Physical Exam General Appearance: alert, mild distress EENT: PERRL/EOMI, TMs normal Neck: non-tender, full range of motion, supple Respiratory: chest non-tender, lungs clear, normal breath sounds Cardiac/Chest: regular rate, rhythm Abdomen: normal bowel sounds, non-tender, soft Skin: normal color, warm/dry Extremities: non-tender, normal inspection, other (No edema, L AVF good thrill and bruit, R TDC tegadermed no erythema) Neuro/Psych: no motor/sensory deficits, alert, normal mood/affect, oriented x 3 ICD10 Worksheet Patient Problems: Problems Problem Status Onset Dehydration Acute End stage renal disease Acute Gastroenteritis Acute Abdominal pain Acute Acute renal failure Acute Acute upper GI bleed Acute Anemia Acute Anemia associated with acute blood loss Acute Anemia, chronic disease Acute Chronic renal failure Acute Diarrhea Acute ESRD (end stage renal disease) Acute End stage renal disease Acute End stage renal disease Acute Hyperkalemia Acute Hyperkalemia Acute Hyperkalemia Acute Hyperkalemia Acute Hyperkalemia Acute Hyperkalemia Acute Hyperkalemia Acute Hyperkalemia Acute Hyperkalemia Acute Hyperkalemia Acute Hyperkalemia, diminished renal excretion Acute Hypertension Acute Hypocalcemia Acute Kidney failure Acute Kidney failure Acute Kidney failure Acute Metabolic acidosis Acute Renal failure Acute Shingles (herpes zoster) polyneuropathy Acute Uremia Acute Uremia Acute
--- NOTE | 2017-06-20 19:45 | HOSPPROG ---
Hospitalist Progress Note Assessment/Plan: DIAGNOSES: # acute gastroenteritis with both norovirus and enteropathogenic E coli isolated (I reviewed with Dr. Nilda Haider, no antibiotic indicated) # end-stage renal disease on chronic dialysis # accelerated hypertension improved today after dialysis # acute fissuring and serous weeping of the skin at the left ankle, with chronic stasis dermatitis changes in that area, but no acute ulcers or infection at the moment # history of coronary artery disease # history of GI bleed, esophagitis and esophageal strictures # chronic anemia due to renal disease The patient does not feel able to manage his situation at home at this time feels weak PLANS: -continue his usual dialysis schedule at this time, monitor closely -monitoring of electrolytes and fluid status, blood pressures -contact isolation -continue cardiac monitor tech -careful monitoring and management of his hypertension SUBJECTIVE: Still having diarrhea, again still having numerous watery bowel movements, difficulty getting to commode, no vomiting appetite poor OBJECTIVE Vitals reviewed: Vitals stable overall so far 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, my review: Sinus rhythm Exam: alert oriented skin warm dry color ok; dialysis catheter access site looks good; see further discussion of skin below under limbs resps not labored lungs clear BSs heart regular abd soft nondistended nontender, bowel sounds present limbs warm, some edema present, worse in the left ankle and there are some chronic stasis pigmentation changes around the left ankle and some acute fissuring and serous weeping from the skin above the left ankle; no current do ulcers per se and no signs of infection so far; the ankle is appropriately dressed for protection here at this time iv site ok Laboratory data: Basic met panel stable GI pathogen panel showing both norovirus and entero pathogenic E coli Objective: Vital Signs Temp Pulse Resp BP Pulse Ox 36.6 C 74 15 132/70 H 94 06/20/17 15:50 06/20/17 15:50 06/20/17 15:50 06/20/17 15:50 06/20/17 15:50 Laboratory Results 06/20/17 03:30 06/19/17 06/20/17 06/21/17 06:59 06:59 06:59 Intake Total 150 1550 500 Balance 150 1550 500 PT 14.2 SEC (12.0-15.0) 06/17/17 19:30 INR 1.08 (0.83-1.16) 06/17/17 19:30 ICD10 Worksheet Patient Problems: Problems Problem Status Onset Dehydration Acute End stage renal disease Acute Gastroenteritis Acute Abdominal pain Acute Acute renal failure Acute Acute upper GI bleed Acute Anemia Acute Anemia associated with acute blood loss Acute Anemia, chronic disease Acute Chronic renal failure Acute Diarrhea Acute ESRD (end stage renal disease) Acute End stage renal disease Acute End stage renal disease Acute Hyperkalemia Acute Hyperkalemia Acute Hyperkalemia Acute Hyperkalemia Acute Hyperkalemia Acute Hyperkalemia Acute Hyperkalemia Acute Hyperkalemia Acute Hyperkalemia Acute Hyperkalemia Acute Hyperkalemia, diminished renal excretion Acute Hypertension Acute Hypocalcemia Acute Kidney failure Acute Kidney failure Acute Kidney failure Acute Metabolic acidosis Acute Renal failure Acute Shingles (herpes zoster) polyneuropathy Acute Uremia Acute Uremia Acute
[2017-06-21 04:15] VITALS: RESP 16
[2017-06-21 05:42] LABS: ANION GAP 16 mEq/L (8-16); CALCIUM 7.5 mg/dL (8.5-10.4); CARBON DIOXIDE 23 mEq/l (22-31); CHLORIDE 100 mEq/L (97-110); GLUCOSE 90 mg/dL (70-100); MAGNESIUM 1.6 mg/dL (1.6-2.3); POTASSIUM 4.7 mEq/L (3.5-5.2); SODIUM 139 mEq/L (134-144)
[2017-06-21 05:49] LABS: GLOMERULAR FILTRATION RATE 6
[2017-06-21 05:53] LABS: CREATININE 8.9 mg/dL (0.7-1.3)
[2017-06-21] MEDS: HEPARIN 5,000 UNIT/0.5 ML SYR SC SCH (06:09)
[2017-06-21 07:45] VITALS: O2SAT 95
--- NOTE | 2017-06-21 09:18 | ASMTCMCOM ---
CM Note CM Note Notes: Patient medically stable for discharge per MD. He has outpatient dialysis plans in place and has good support. No needs at this time. CM available should needs arise. Date Signed: 06/21/2017 09:18 AM Electronically Signed By:Hemalatha Chen RN
--- NOTE | 2017-06-21 09:21 | SOAPPROG ---
SOAP Progress Note Assessment/Plan: Assessment:Plan: ESRD-on Hd MWF at [facility] -next Hd today Access-AVF and tunneled cath -will use catheter for dialysis in hospital GI-toxigenic E coli and Norovirus -isolation -care per hospitalists -no new loose stools since 7p last night -feeling better Dispo-home today after Hd per hospital doctors 06/21/17 09:19 Subjective: stable overnite, feeling better Objective: Vital Signs Temp Pulse Resp BP Pulse Ox 36.6 C 59 L 16 123/67 H 95 06/21/17 07:43 06/21/17 07:43 06/21/17 07:43 06/21/17 07:43 06/21/17 07:43 Laboratory Results 06/21/17 03:40 06/20/17 06/21/17 06/22/17 05:59 05:59 05:59 Intake Total 1550 700 Output Total 75 Balance 1550 625 PT 14.2 SEC (12.0-15.0) 06/17/17 19:30 INR 1.08 (0.83-1.16) 06/17/17 19:30 Physical Exam - Physical Exam General Appearance: WD/WN, alert, no apparent distress, thin EENT: normal ENT inspection Neck: normal inspection Respiratory: lungs clear, normal breath sounds, No respiratory distress Cardiac/Chest: regular rate, rhythm, No diastolic murmur, No systolic murmur Abdomen: normal bowel sounds, non-tender Back: Normal inspection Skin: normal color, warm/dry Extremities: other (AVF patent LUE), No swelling Neuro/Psych: no motor/sensory deficits, alert, normal mood/affect ICD10 Worksheet Patient Problems: Problems Problem Status Onset Dehydration Acute End stage renal disease Acute Gastroenteritis Acute Abdominal pain Acute Acute renal failure Acute Acute upper GI bleed Acute Anemia Acute Anemia associated with acute blood loss Acute Anemia, chronic disease Acute Chronic renal failure Acute Diarrhea Acute ESRD (end stage renal disease) Acute End stage renal disease Acute End stage renal disease Acute Hyperkalemia Acute Hyperkalemia Acute Hyperkalemia Acute Hyperkalemia Acute Hyperkalemia Acute Hyperkalemia Acute Hyperkalemia Acute Hyperkalemia Acute Hyperkalemia Acute Hyperkalemia Acute Hyperkalemia, diminished renal excretion Acute Hypertension Acute Hypocalcemia Acute Kidney failure Acute Kidney failure Acute Kidney failure Acute Metabolic acidosis Acute Renal failure Acute Shingles (herpes zoster) polyneuropathy Acute Uremia Acute Uremia Acute
[2017-06-21] MEDS: CALCIUM CARBONATE 500 MG CHEWABLE TAB PO SCH ×2 (10:54→13:14)
[2017-06-21] MEDS ORDERED: HEPARIN 50,000 UNIT/10 ML VIAL ONE (12:00)
[2017-06-21 12:01] VITALS: PULSE 61; TEMP 98.3
[2017-06-21] MEDS: PANTOPRAZOLE SODIUM 40 MG TAB PO SCH (13:14)
[2017-06-21] MEDS: NEPHROVITE FOLIC ACID/VIT B&C 1 TAB PO SCH (13:14)
[2017-06-21] MEDS: ATORVASTATIN CALCIUM 40 MG TAB PO SCH (13:14)
[2017-06-21] MEDS: SODIUM BICARBONATE 650 MG TAB PO SCH (13:14)
[2017-06-21 13:36] VITALS: BP 157/74
--- NOTE | 2017-06-21 15:36 | ASDISCHSUM ---
Discharge Information Plan Status:Home with No Needs Medically Cleared to Leave: Discharge Date:06/21/2017 03:00 PM CM D/C Disposition:Home, Routine, Self-Care ADT D/C Disposition:Home, Routine, Self-Care Projected Discharge Date:06/21/2017 03:00 PM Transportation at D/C:Self Discharge Delay Reason: Follow-Up Date:06/21/2017 03:00 PM Discharge Slot: Final Diagnosis: Placement Information Patient Contact Information Contact Name:FREIDAYEIMIYESENIAINOSA Relationship:Son Address: Work Phone: City: [facility] Phone: State/[place] Medical Code: Email: Financial Information Financial Class:Self-Pay Primary Plan Desc:WE CARE Primary Plan Number:99 Secondary Plan Desc: Secondary Plan Number: Assessment Information [facility] CM Progress Note CM Note CM Note Notes: 06/18/2017 Case Management Note 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 Pt has no concerns regarding d/c. Pt was evaluated today by [employer] for emergency medicaid application. Case Management d/c poc: Home independent with resumption of dialysis at [facility] Case Management available if needs change. Date Signed: 06/18/2017 12:30 PM Electronically Signed By:Shanelle Zamorano RN LACE LACBenny Length of stay for Answers: 3 days current admission Acuity / Level of Care Answers: Was the patient admitted to hospital via the emergency department? Yes: Comorbidities - select Answers: Moderate or severe liver all that apply disease or renal disease Emergency dept visits in Answers: 3 last 6 months Score: 13 Date Signed: 06/21/2017 09:15 AM Electronically Signed By:Hemalatha Chen RN Case Management Discharge Plan Note Case Management Discharge Discharge Order Complete? Answers: Yes Transportation Arranged Answers: Family/Friends Discharge Comments Notes: Plan outpatient dialysis with [facility] Date Signed: 06/21/2017 09:16 AM Electronically Signed By:Hemalatha Chen RN [facility] CM Progress Note CM Note CM Note Notes: Patient medically stable for discharge per MD. He has outpatient dialysis plans in place and has good support. No needs at this time. CM available should needs arise. Date Signed: 06/21/2017 09:18 AM Electronically Signed By:Hemalatha Chen RN Intervention Information
--- NOTE | 2017-06-22 12:12 | GDS ---
[f rep st] DISCHARGE SUMMARY DISCHARGE DIAGNOSES: 1. End-stage renal disease, hemodialysis dependent. 2. Acute gastroenteritis secondary to norovirus. 3. Hypertension. 4. History of coronary artery disease. 5. History of GI bleed, stable. 6. Chronic anemia. CONSULTANTS: Dr. Brian Stanley, Nephrology. HISTORY OF PRESENT ILLNESS: The patient is a 67-year-old male who is well known to the [facility] service due to recurrent admissions for emergency dialysis in the setting of lack of outpatient benefits, presents to the emergency department with nausea, vomiting, diarrhea, and chills. He is ad mitted to the hospital for further management. HOSPITAL COURSE: Patient admitted to the PCU. GI pathogen panel was positive for norovirus as well as E coli, though the latter is likely colonization. He was treated with IV fluids and antiemetics. His blood cultures were negative. He received dialysis on his usual schedule. On the day of admiss ion his diarrhea has resolved. He is eating and drinking and feels much better. DISPOSITION: Patient is discharged home in stable condition. FOLLOWUP: Patient should return to the hospital for his dialysis needs. DISCHARGE MEDICATIONS: Please see [email or web address] completed outpatient medication list. Patient will srini nue all previous outpatient medications as previously prescribed. There are no new medications on [facility]. /[id number]/MODL
== END 2017-06-21 15:00 | disposition home or self-care (01) | DRG 391 ==
LOC: EDUNIT# → F2W 20:45 → OBSVTOIN 06-18 21:48 → F2W 06-19 10:42
PROVIDERS: ADMIT Internal Medicine; ATTEND Internal Medicine
PROC: 5A1D70Z Performance of Urinary Filtration, Intermittent, Less than 6 Hours Per Day (ICD-10-PCS; principal; 2017-06-19)
DX: A08.39 Other viral enteritis (principal); I12.0 Hypertensive chronic kidney disease with stage 5 chronic kidney disease or end stage renal disease; N18.6 End stage renal disease; D63.1 Anemia in chronic kidney disease; I25.10 Atherosclerotic heart disease of native coronary artery without angina pectoris; Z99.2 Dependence on renal dialysis; Z87.891 Personal history of nicotine dependence
CPT/HCPCS: 86705-90; 86709-90; G0378; J1644; J2405

== ENCOUNTER 2017-08-27 12:23 | Day surgery (SDC) | payer MEDICAID ==
[2017-08-27] MEDS ORDERED: ALTEPLASE 2 MG VIAL IVP PRN (13:13)
[2017-08-27] MEDS ORDERED: NALOXONE HCL 0.4 MG/ML INJ IVP PRN (13:13)
[2017-08-27] MEDS ORDERED: HEPARIN 10,000 UNIT/10 ML MDV (1,000 UNIT/ML) IVP PRN (13:13)
[2017-08-27] MEDS ORDERED: MIDAZOLAM 2 MG/2 ML VIAL IVP PRN (13:13)
[2017-08-27] MEDS ORDERED: FLUMAZENIL 0.5 MG/5 ML MDV IVP PRN (13:13)
[2017-08-27] MEDS ORDERED: GLUCAGON HCL 1 MG VIAL IVP PRN (13:13)
[2017-08-27] MEDS ORDERED: PROTAMINE SULFATE 50 MG/5 ML VIAL IVP PRN (13:13)
[2017-08-27] MEDS ORDERED: MEPERIDINE 25 MG/ML SYR IVP PRN (13:13)
[2017-08-27] MEDS ORDERED: fentaNYL 100 MCG/2 ML INJ IVP PRN (13:13)
[2017-08-27] MEDS ORDERED: NS 1,000 ML IV SCH (13:15)
--- NOTE | 2017-08-27 14:29 | PDGENHP ---
History & Physical Chief Complaint: new LUE fistula; needs tunneled dialysis out History of Present Illness: dialysis catheter has been in x 2 years; LUE fistula x 3 months. pain with use of the fistula. Pertinent Past, Social, Family History: Hep A, former smoker; anemai, noro virus 2 months ago. Relevant Physical Exam: extensive RLL chronic cellulitis/skin changes. Mildly swollen RT foot. Cardiorespiratory Assessment: rrr. CTA
--- NOTE | 2017-08-27 14:30 | PDPROPOC ---
Sedation Plan of Care Sedation Plan of Care: vital signs stable, mental status noted, patient educated of risks, benefits, alternatives, patient can tolerate sedation ASA Classification: ASA 3 Planned drugs: fentanyl Mallampati Score: Class 1 Mallampati Reference Image: Patient passed 3-3-2 rule?: Yes
[2017-08-27 14:37] VITALS: PULSE 55; RESP 18; TEMP 96.8
[2017-08-27] MEDS ORDERED: IOPAMIDOL (ISOVUE-300) 100 ML BTL ONE (14:47)
[2017-08-27] MEDS ORDERED: fentaNYL 100 MCG/2 ML INJ ONE (14:49)
[2017-08-27] MEDS ORDERED: ATROPINE SULFATE 1 MG/ML VIAL ONE (15:09)
[2017-08-27] MEDS ORDERED: ACETAMINOPHEN 325 MG TAB PO PRN (16:09)
[2017-08-27] MEDS ORDERED: ONDANSETRON 4 MG/2 ML VIAL IVP PRN (16:09)
[2017-08-27 17:26] VITALS: BP 137/67; O2SAT 96
== END 2017-08-27 17:20 | disposition home or self-care (01) ==
LOC: FIMAGING 12:23
PROVIDERS: ATTEND Internal Medicine Nephrology
PROC: 0JP Subcutaneous Tissue and Fascia, Removal (ICD-10-PCS; 2017-08-27)
PROC: 057Y3ZZ Dilation of Upper Vein, Percutaneous Approach (ICD-10-PCS; principal; 2017-08-27 16:00)
DX: I87.1 Compression of vein (principal)
CPT/HCPCS: 36590; 36902; C1769; C1894; C1725; J0461; J1644; J3010; Q9967

== ENCOUNTER 2018-08-13 15:07 | Observation (INO) | payer OTHER, MEDICAID | END 2018-08-14 17:54 | disposition home or self-care (01) | LOC: F2W 16:57 ==